=== PATIENT | female | born 1995 | race Caucasian/White ===

== ENCOUNTER 2017-07-18 15:28 | Emergency (ER) | payer MEDICAID, SELFPAY ==
[2017-07-18 15:29] VITALS: BP 156/92; PULSE 78; RESP 16; TEMP 37.7; O2SAT 96; BMI 46.7
[2017-07-18 15:51] VITALS: BP 120/73; PULSE 83; RESP 16; O2SAT 96
--- NOTE | 2017-07-18 15:57 | EKG12_ITS ---
Test Reason : CP Blood Pressure : / mmHG Vent. Rate : 072 BPM Atrial Rate : 072 BPM P-R Int : 154 ms QRS Dur : 140 ms QT Int : 420 ms P-R-T Axes : 020 003 135 degrees QTc Int : 459 ms Normal sinus rhythm Left bundle branch block Abnormal ECG Confirmed by FERDINAND WELLS ([id number]), assistant production editor MERVIN RODRIGUEZ ([id number]) on 07/22/2017 1:07:07 PM Referred By: ZAID/OSCAR Confirmed By:FERDINAND WELLS
--- NOTE | 2017-07-18 15:57 | RAD_ITS ---
STUDY: X-RAY CHEST REASON FOR EXAM: Female, 22 years old. Chest pain. Shortness TECHNIQUE: Frontal and lateral views of the chest. COMPARISON: May 15, 2017 FINDINGS: The lungs are clear and expanded. There is no demonstrated pleural abnormality. Sternotomy wires and a single clip projected over the mid mediastinum are stable. Normal mediastinum and gerald. Normal visualized pulmonary arteries. Normal visualized aortic arch and descending thoracic aorta. Normal visualized thoracic spine. Normal visualized ribs, clavicles, and shoulders. There is no demonstrated abnormality of the visualized soft tissue structures of the upper abdomen. RAD/Chest PA and Lateral IMPRESSION: Stable appearance of the chest with no new or acute pathology. Electronically Signed: Girish Christopher MD at 16:30 EST , Service support ,
[2017-07-18 17:29] VITALS: RESP 16
--- NOTE | 2017-07-18 18:10 | CT_ITS ---
STUDY: CTA CHEST REASON FOR EXAM: Female, 22 years old. Cough and chest pain RADIATION DOSAGE (If Supplied By Facility): CTDIvol = ( 30.02 ) mGy, DLP = ( 689.55 ) mGycm TECHNIQUE: The examination was performed with the intravenous administration of 100ML ml of Isovue 370 contrast material. Post-processing of the angiographic images was performed, with multiplanar reformation and 3D reconstruction. Individualized dose optimization techniques were used for this CT. COMPARISON: July 18, 2017 FINDINGS: Sternotomy wires are noted. Normal enhancement of the main pulmonary artery and right and left pulmonary arteries. Normal enhancement of the bilateral peripheral pulmonary arteries. There is no demonstrated pulmonary embolism. Normal thoracic aorta and visualized great vessels. There is no demonstrated aortic dissection. Normal heart and pericardium. Normal mediastinum. 1.8 cm right hilar node. Normal visualized trachea and bronchi. Small patchy groundglass opacities noted at the right lung base. Right infrahilar tree-in-bud type infiltrates. Normal pulmonary parenchyma. Normal pleura. Normal chest wall structures. Incompletely healed sternotomy. Normal visualized upper abdomen. CT/CTA Chest W/WO Contrast IMPRESSION: Right lower lobe infiltrate probably infectious in etiology. Incompletely healed sternotomy. Electronically Signed: Tulio Diamond MD at 21:23 EST , Service support ,
[2017-07-18] MEDS: Ketorolac 30 MG/ML Syringe IV (18:45)
[2017-07-18 18:59] LABS: Absolute Lymphocyte Count 1.53 X10^3/ul (0.83-4.51); Absolute Neutrophil Count 1.6 X10^3/uL (2.0-7.7); Basophil# 0.02 X10^3/uL; Basophil% 0.5 % (0-1); Eosinophil# 0.08 X10^3/uL; Eosinophils% 2.1 % (0-5); Hematocrit 38.7 % (37-47); Hemoglobin 11.8 g/dl (12.0-15.0); Lymphocyte # 1.53 X10^3/ul (4.0); Lymphocyte % 39.7 % (19-41); Mean Corp Hgb Conc 30.5 g/gl (32-36); Mean Corpuscular Hgb 23.7 pg (27.0-32.0); Mean Corpuscular Volume 77.7 fL (81-99); Mean Platelet Vol. 9.4 fl (6.2-12.0); Monocyte% 15.6 % (0-10); Neutrophil # 1.61 X10^3/uL (2.7-7.7); Neutrophil % 41.8 % (47-70); Platelet Count 225 K/mm3 (150-450); RBC Distribution Width CV 15.6 % (11.6-14.6); Red Blood Count 4.98 M/mm3 (4.2-5.4); White Blood Count 3.9 K/mm3 (4.4-11.0)
[2017-07-18 19:01] LABS: POSITIVE COUNT NO; POSITIVE DIFFERENTIAL NO; POSITIVE MORPHOLOGY NO
[2017-07-18 19:25] LABS: Anion Gap 6 (5-15); BUN 6 mg/dL (7-18); BUN/Creat Ratio 10.6 RATIO (10-20); Calcium,Total 8.6 mg/dL (8.5-10.1); Chloride 108 mmol/L (98-107); Creatinine, Serum 0.57 mg/dL (0.55-1.02); EST Glomerular Filtration Rate 144 mL/min (>60); Est Glom Filt Rate - Afr Amer 175 mL/min (>60); Glucose 75 mg/dL (74-106); Potassium 4.5 mmol/L (3.5-5.1); Sodium Level 139 mmol/L (136-145)
[2017-07-18 19:26] VITALS: BP 130/62; PULSE 67; RESP 19; O2SAT 97
--- NOTE | 2017-07-18 19:41 | NURSING ---
positive flu b reported to dr. ayon
[2017-07-18] MEDS: Oseltamivir Phosphate 75 MG Capsule PO (20:05)
--- NOTE | 2017-07-18 20:30 | ED.DCSUM_ITS ---
- ER Visit Summary Date of Service: 07/18/17 Chief Complaint: Chest pain History of Present Illness: The patient is a 22 F with chest pain that started gradually yesterday, worse today. She has 3 distinct areas of discomfort, all of which are unique. She has had open heart surgery, has no idea what they did at [facility], just to get a piece of tissue and a piece of muscle. She states that her incision has been sore since then but before she started getting sick a few days ago, she has been recovering very well. She also has some nonpleuritic pressure on the right side and some stabbing pleuritic discomfort throughout the left chest. She has been having a cough productive of occasional brown sputum. She denies it being dark yellow, or bloody. It is brown. She had a fever 3 days ago but none since then. She denies having any dyspnea or palpitations. No leg pain or swelling. Physical Examination: Well-appearing in no distress. Temperature is 99.8 otherwise her vital signs are normal her pulse ox is 96% on room air. Initial blood pressure 156/92, on recheck it is 120/73 without any treatment. Lungs are clear to auscultation throughout, her left chest is all very tender, her incision is tender, but does not show any signs of infection or dehiscence and appears to be healing well. Right chest is nontender. Equal breath sounds bilaterally, trachea midline. Abdomen benign. No calf pain or tenderness, no pedal edema. Equal bilateral radial pulses. Test Results: Chest x-ray unremarkable. Labs unremarkable except for influenza which is positive for influenza B. Troponin negative. CT angiography negative for PE, but shows a right lower lobe infiltrate that appears to be of infectious etiology, which was not seen on chest x-ray according to radiology. Emergency Department Course and Treatment: She was given IV fluids, Toradol, and started on Tamiflu and Levaquin. Suspect a lot of her chest discomfort is chest wall pain. There is a delay in ordering tests and getting results because I was awaiting details from [facility] to see what she had done. 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 It does not appear that any of this has anything to do with her symptoms at this time. Her vital signs are excellent, she is satting well on room air. I think she can be discharged home. She was advised to follow-up as scheduled, with her cardiac follow-up appointments and PCP after the weekend. Treatment Plan: Tamiflu, Levaquin, supportive care, close outpt f/u Disposition: Discharge home Impression: Influenza Healthcare associated pneumonia Chest pain, unspecified Recent open heart surgery This note was generated with [employer] dictation software. It may contain incorrect words, spelling, and punctuation that were not noted in review of the chart prior to signing ED Disposition - Plan for ED Patient: Disposition: Home or Assisted Living Chief Complaint: Chest Other Instructions: ED Flu, ED Pneumonia Adult Prescriptions: Levofloxacin [Levaquin] 750 mg PO DAILY #5 tab Oseltamivir Phosphate [Tamiflu] 75 mg PO BID #10 cap Referrals: Ken Barnes MD [Primary Care Provider] - 3-5 Days
[2017-07-18] MEDS: levoFLOXacin 750 MG Tablet PO (21:35)
[2017-07-18 21:36] VITALS: BP 148/55; PULSE 70; RESP 16; O2SAT 99
--- NOTE | 2017-07-18 21:38 | ED.RN ---
REVIEWED D/C INSTRUCTIONS, FOLLOW UP CARE, PRESCRIPTIONS, AND S/S THAT WOULD WARRANT A RETURN TO THE ED WITH PT. PT VERBALIZED AN UNDERSTANDING AND DENIES FURTHER QUESTIONS FOR THIS RN. PT SKIN P/W/D, RESP EVEN AND UNLABORED, PT A&O X 3, NO DISTRESS NOTED. PT AMBULATED OUT OF ED, GAIT STEADY.
== END 2017-07-18 21:40 | disposition home or self-care (01) ==
PROVIDERS: Emergency Provider Emergency Medicine; Family Provider Family Medicine; PCP Family Medicine
DX: J10.00 Influenza due to other identified influenza virus with unspecified type of pneumonia (principal); Y95 Nosocomial condition; R07.89 Other chest pain; Z98.890 Other specified postprocedural states; E66.9 Obesity, unspecified; I44.7 Left bundle-branch block, unspecified; J45.909 Unspecified asthma, uncomplicated; I10 Essential (primary) hypertension; Z86.79 Personal history of other diseases of the circulatory system; Z79.899 Other long term (current) drug therapy
CPT/HCPCS: 71046; 71275; 80048; 84484; 85025; 87804; 93005; 96361; 96374; 99285; J7030; J7040; Q9967; A4216

== ENCOUNTER 2017-10-24 22:27 | Emergency (ER) | payer MEDICAID, SELFPAY ==
[2017-10-24 22:28] VITALS: BP 146/60; PULSE 87; RESP 27; TEMP 36.9; O2SAT 97; BMI 46.3
--- NOTE | 2017-10-24 22:34 | ED.RN ---
CALLED FOR EKG PER RN REQUEST, PULLED OLD EKG'S FOR
--- NOTE | 2017-10-24 22:51 | EKG12_ITS ---
Test Reason : CP Blood Pressure : / mmHG Vent. Rate : 067 BPM Atrial Rate : 067 BPM P-R Int : 152 ms QRS Dur : 144 ms QT Int : 432 ms P-R-T Axes : 029 018 131 degrees QTc Int : 456 ms Normal sinus rhythm Left bundle branch block Abnormal ECG Confirmed by FERDINAND WELLS ([id number]), legal editor MERVIN RODRIGUEZ ([id number]) on 11/03/2017 6:11:19 PM Referred By: YORDY Confirmed By:FERDINAND WELLS
--- NOTE | 2017-10-24 22:53 | ED.VISSUMM ---
- ER Visit Summary Date of Service: 10/24/17 Chief Complaint: Chest pain History of Present Illness: The patient is a 22 F presenting with left-sided chest pain which started around 6 AM this morning. She states it has waxed and waned today and has been consistent throughout the day. She has shortness of breath associated with this. She states it is worse with deep inspiration. She has had similar symptoms in the past. She is a smoker. She does not have any other coronary artery disease risk factors. She denies fever cough or other complaints. 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 Physical Examination: Vitals are stable. Patient is afebrile. Alert no acute distress. HEENT exam is unremarkable. Neck is supple. Lungs are clear and equal bilaterally. Left chest tender to palpation with no crepitus. Heart is regular rate and rhythm. Abdomen is soft nontender nondistended. Extremities are unremarkable. Skin is warm and dry. No focal neurologic deficit. Remainder of exam is unremarkable. Emergency Department Course and Treatment: EKG is sinus rate of 67 with left bundle branch block unchanged from previous. Patient is given Toradol IV. Chest x-ray shows mild enlargement of cardiac silhouette. CBC normal shows hemoglobin 11.6, chemistries unremarkable. Troponin is negative. D-dimer is 0.32. HCG negative. Patient had over 12 hours of constant pain with a negative troponin. Her pain is reproducible to palpation. She is advised to take NSAIDs. Advised to follow-up with her primary care physician. Advised return to ED if worsening complaints. Disposition: Discharge home Impression: Chest wall pain This note was generated with [employer] dictation software. It may contain incorrect words, spelling, and punctuation that were not noted in review of the chart prior to signing ED Disposition - Plan for ED Patient: Chief Complaint: Chest Pain Instructions: ED Strain Chest Wall Referrals: Ken Barnes MD [Primary Care Provider] -
--- NOTE | 2017-10-24 22:55 | RAD_ITS ---
STUDY: X-RAY CHEST REASON FOR EXAM: Female, 22 years old. Chest pain TECHNIQUE: A single frontal view of the chest was obtained. COMPARISON: July 18, 2017 FINDINGS: The lungs are underaerated. There are no focal airspace opacities. There is no demonstrated pleural abnormality. There is mild enlargement of the cardiac silhouette. Sternotomy wires are present. The mediastinum and hilar regions are unremarkable. Normal visualized pulmonary arteries. Normal visualized aortic arch and descending thoracic aorta. The thoracic spine is unremarkable. The visualized ribs, clavicles, and shoulders are unremarkable. There is no demonstrated abnormality of the visualized upper abdomen. RAD/Chest 1 View (Portable) IMPRESSION: There is mild enlargement of the cardiac silhouette without evidence of edema or effusion. Electronically Signed: Ellen Olivera MD at 23:47 EDT Tel Direct: [phone], Service support ,
--- NOTE | 2017-10-24 22:57 | ED.DCSUM_ITS ---
- ER Visit Summary Date of Service: 10/24/17 Chief Complaint: Chest pain History of Present Illness: The patient is a 22 F presenting with left-sided chest pain which started around 6 AM this morning. She states it has waxed and waned today and has been consistent throughout the day. She has shortness of breath associated with this. She states it is worse with deep inspiration. She has had similar symptoms in the past. She is a smoker. She does not have any other coronary artery disease risk factors. She denies fever cough or other complaints. 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 Physical Examination: Vitals are stable. Patient is afebrile. Alert no acute distress. HEENT exam is unremarkable. Neck is supple. Lungs are clear and equal bilaterally. Left chest tender to palpation with no crepitus. Heart is regular rate and rhythm. Abdomen is soft nontender nondistended. Extremities are unremarkable. Skin is warm and dry. No focal neurologic deficit. Remainder of exam is unremarkable. Emergency Department Course and Treatment: EKG is sinus rate of 67 with left bundle branch block unchanged from previous. Patient is given Toradol IV. Chest x-ray shows mild enlargement of cardiac silhouette. CBC normal shows hemoglobin 11.6, chemistries unremarkable. Troponin is negative. D-dimer is 0.32. HCG negative. Patient had over 12 hours of constant pain with a negative troponin. Her pain is reproducible to palpation. She is advised to take NSAIDs. Advised to follow-up with her primary care physician. Advised return to ED if worsening complaints. Disposition: Discharge home Impression: Chest wall pain This note was generated with [employer] dictation software. It may contain incorrect words, spelling, and punctuation that were not noted in review of the chart prior to signing ED Disposition - Plan for ED Patient: Chief Complaint: Chest Pain Instructions: ED Strain Chest Wall Referrals: Ken Barnes MD [Primary Care Provider] -
[2017-10-24 23:23] LABS: Absolute Lymphocyte Count 2.83 X10^3/ul (0.83-4.51); Absolute Neutrophil Count 6.1 X10^3/uL (2.0-7.7); Basophil# 0.06 X10^3/uL; Basophil% 0.6 % (0-1); Eosinophil# 0.63 X10^3/uL; Eosinophils% 6.1 % (0-5); Hematocrit 37.3 % (37-47); Hemoglobin 11.6 g/dl (12.0-15.0); Lymphocyte # 2.83 X10^3/ul (4.0); Lymphocyte % 27.2 % (19-41); Mean Corp Hgb Conc 31.1 g/gl (32-36); Mean Corpuscular Hgb 23.5 pg (27.0-32.0); Mean Corpuscular Volume 75.7 fL (81-99); Mean Platelet Vol. 9.3 fl (6.2-12.0); Monocyte# 0.75 X10^3/uL; Monocyte% 7.2 % (0-10); Neutrophil # 6.12 X10^3/uL (2.7-7.7); Neutrophil % 58.7 % (47-70); Platelet Count 294 K/mm3 (150-450); RBC Distribution Width CV 17.5 % (11.6-14.6); RBC Distribution Width SD 48.6 fl (35.1-43.9); Red Blood Count 4.93 M/mm3 (4.2-5.4); White Blood Count 10.4 K/mm3 (4.4-11.0)
[2017-10-24] MEDS: Ketorolac 30 MG/ML Syringe IV (23:25)
[2017-10-24 23:27] LABS: POSITIVE COUNT NO; POSITIVE DIFFERENTIAL NO; POSITIVE MORPHOLOGY NO
[2017-10-24 23:44] LABS: Anion Gap 8 (5-15); BUN 11 mg/dL (7-18); BUN/Creat Ratio 16.7 RATIO (10-20); Calcium,Total 8.3 mg/dL (8.5-10.1); Chloride 109 mmol/L (98-107); Creatinine, Serum 0.66 mg/dL (0.55-1.02); EST Glomerular Filtration Rate 122 mL/min (>60); Est Glom Filt Rate - Afr Amer 147 mL/min (>60); Estimated Creatinine Clearance 137.16 ml/min; Glucose 104 mg/dL (74-106); Potassium 3.8 mmol/L (3.5-5.1); Sodium Level 139 mmol/L (136-145)
[2017-10-24 23:53] LABS: D-Dimer Quantitative (DVT/PE) 0.32 FEU/ug/m (0.27-0.49)
--- NOTE | 2017-10-25 00:17 | ED.DEP ---
ED Disposition - Plan for ED Patient: Chief Complaint: Chest Pain Instructions: ED Strain Chest Wall Referrals: Ken Barnes MD [Primary Care Provider] -
[2017-10-25 00:18] LABS: Pregnancy, Serum, hCG Quali. NEGATIVE Negative (0-9 Nonpreg)
[2017-10-25 00:35] VITALS: BP 118/56; PULSE 87; RESP 20; O2SAT 96
== END 2017-10-25 00:36 | disposition home or self-care (01) ==
LOC: ED 22:55
PROVIDERS: Emergency Provider Emergency Medicine; Family Provider Family Medicine; PCP Family Medicine
DX: R07.89 Other chest pain (principal); R06.00 Dyspnea, unspecified; I44.7 Left bundle-branch block, unspecified; Z79.899 Other long term (current) drug therapy; F17.200 Nicotine dependence, unspecified, uncomplicated
CPT/HCPCS: 71045; 80048; 84484; 84703; 85025; 85379; 93005; 96374; 99285; A4216

== ENCOUNTER → 2017-11-19 20:00 | Outpatient (CLI) | payer MEDICAID, SELFPAY | PROVIDERS: Family Provider Family Medicine; PCP Family Medicine | DX: G47.33 Obstructive sleep apnea (adult) (pediatric) (principal); R53.83 Other fatigue | CPT/HCPCS: 95810 ==

== ENCOUNTER 2018-04-30 10:43 | Emergency (ER) | payer MEDICAID, SELFPAY ==
[2018-04-30 10:44] VITALS: BP 152/68; PULSE 78; RESP 18; TEMP 36.6; O2SAT 99; BMI 48.0
--- NOTE | 2018-04-30 11:00 | EKG12_ITS ---
Test Reason : CP/SOB Blood Pressure : / mmHG Vent. Rate : 064 BPM Atrial Rate : 064 BPM P-R Int : 144 ms QRS Dur : 142 ms QT Int : 448 ms P-R-T Axes : 031 015 123 degrees QTc Int : 462 ms Normal sinus rhythm Left bundle branch block Abnormal ECG Confirmed by NATHALIE HANEY, KALI ([id number]), desk editor MERVIN RODRIGUEZ ([id number]) on 05/04/2018 2:28:49 PM Referred By: JEFFERY/SISI Confirmed By:KALI ZELAYA MD
--- NOTE | 2018-04-30 11:03 | ED.DCSUM_ITS ---
- ER Visit Summary Date of Service: 04/30/18 Chief Complaint: Chest pain History of Present Illness: The patient is a 22 F presents to the emergency department chest pain. Patient symptoms began last night. She describes a burning pain in mid epigastric area that radiates around. She denies any fevers or chills. She denies any cough. It was made worse with eating. She states that she has never had symptoms like this involving her back, but she will get symptoms in her upper stomach into her chest frequently. She denies any history of coronary vascular disease. She has no history of pulmonary embolus. Physical Examination: Vital signs reviewed General: Well-nourished, well-developed Head: Normocephalic, atraumatic Eyes: Pupils equal and reactive, extraocular muscles intact Neck, supple, no lymphadenopathy Heart: Regular rate and rhythm Respiratory: No distress, clear bilaterally Abdomen: Soft, tender in the midepigastric area without rebound or guarding, nondistended, no peritoneal signs Back: Nontender Extremities: Nontender, no edema, no cords Skin: Normal color no rash Neuro: Alert and oriented, no focal or lateralizing deficits Test Results: [] Emergency Department Course and Treatment: The patient declined any prior medical issues, but review of the records and on her examination, she has had prior sternotomy. Her pain is entirely reproducible in the midepigastric area. She is now febrile. She is not tachycardic. EKG was obtained. It showed a left bundle branch block which was unchanged. Her chest x-ray was also unremarkable. Patient was given a GI cocktail with some improvement. Her pain is entirely reproducible. She is no history of coronary vascular disease. She has had multiple workups in the past for chest pain. I do feel that she is safe for outpatient therapy. I am going to treat her with anti-inflammatories. She will be discharged home. Treatment Plan: [] Disposition: Discharge Impression: Chest pain This note was generated with [employer] dictation software. It may contain incorrect words, spelling, and punctuation that were not noted in review of the chart prior to signing ED Disposition - Plan for ED Patient: Chief Complaint: Chest Pain Instructions: ED Chest Pain NonCardiac Prescriptions: Naproxen [Naprosyn] 500 mg PO BID PRN #20 tab Referrals: Ken Barnes MD [Primary Care Provider] -
[2018-04-30] MEDS: Mag Hydrox/Al Hydrox/Simeth 30 ML UDC PO (11:23)
--- NOTE | 2018-04-30 11:50 | RAD_ITS ---
STUDY: X-RAY CHEST REASON FOR EXAM: Female, 22 years old. Chest pain. TECHNIQUE: PA and lateral views of the chest. COMPARISON: Comparison is made with prior study dated October 24, 2017. FINDINGS: The lungs are clear and expanded. There is no demonstrated pleural abnormality. Sternal cerclage wires are present from a prior sternotomy. Normal mediastinum and gerald. Normal visualized pulmonary arteries. Normal visualized aortic arch and descending thoracic aorta. Normal visualized thoracic spine. Normal visualized ribs, clavicles, and shoulders. There is no demonstrated abnormality of the visualized soft tissue structures of the upper abdomen. RAD/Chest PA and Lateral IMPRESSION: Status post midline sternotomy. No acute abnormality is seen. Electronically Signed: Seng Luna MD at 12:11 EST Tel [phone], Service support ,
== END 2018-04-30 13:15 | disposition home or self-care (01) ==
LOC: ED 11:44
PROVIDERS: Emergency Provider Emergency Medicine; Family Provider Family Medicine; PCP Family Medicine
DX: R07.9 Chest pain, unspecified (principal); R11.0 Nausea; I44.7 Left bundle-branch block, unspecified; Z72.0 Tobacco use
CPT/HCPCS: 71046; 93005; 99282

== ENCOUNTER 2018-05-07 13:44 | Emergency (ER) | payer MEDICAID, SELFPAY ==
[2018-05-07 13:45] VITALS: PULSE 95; RESP 19; TEMP 37.1; O2SAT 98; BMI 48.5
--- NOTE | 2018-05-07 14:01 | EKG12_ITS ---
Test Reason : Blood Pressure : / mmHG Vent. Rate : 080 BPM Atrial Rate : 080 BPM P-R Int : 140 ms QRS Dur : 138 ms QT Int : 420 ms P-R-T Axes : 024 016 112 degrees QTc Int : 484 ms Normal sinus rhythm Left bundle branch block Abnormal ECG Confirmed by NATHALIE HANEY, KALI ([id number]), senior technical editor MERVIN RODRIGUEZ ([id number]) on 05/08/2018 11:56:31 AM Referred By: OSCAR Confirmed By:KALI ZELAYA MD
[2018-05-07 14:21] VITALS: O2SAT 98
[2018-05-07] MEDS: Aspirin 81 MG TAB.CHEW 324 MG PO (14:43)
[2018-05-07 14:44] VITALS: BP 126/54; PULSE 77; RESP 27; O2SAT 97
--- NOTE | 2018-05-07 14:52 | RAD_ITS ---
STUDY: X-RAY CHEST REASON FOR EXAM: Female, 22 years old. 2 day history of chest pain. TECHNIQUE: PA and lateral views of the chest. COMPARISON: Comparison is made with prior study dated April 30, 2018. FINDINGS: The lungs are clear and expanded. There is no demonstrated pleural abnormality. Sternal cerclage wires are present from a prior sternotomy. Normal mediastinum and gerald. Normal visualized pulmonary arteries. Normal visualized aortic arch and descending thoracic aorta. Normal visualized thoracic spine. Normal visualized ribs, clavicles, and shoulders. There is no demonstrated abnormality of the visualized soft tissue structures of the upper abdomen. RAD/Chest PA and Lateral IMPRESSION: The patient is status post midline sternotomy. No acute abnormality is seen. Electronically Signed: Seng Luna MD at 15:07 EST Tel [phone], Service support ,
[2018-05-07 14:55] LABS: Absolute Lymphocyte Count 3.06 X10^3/ul (0.83-4.51); Absolute Neutrophil Count 7.2 X10^3/uL (2.0-7.7); Basophil# 0.07 X10^3/uL; Basophil% 0.6 % (0-1); Eosinophil# 0.64 X10^3/uL; Eosinophils% 5.4 % (0-5); Hematocrit 40.4 % (37-47); Hemoglobin 13.1 g/dl (12.0-15.0); Lymphocyte # 3.06 X10^3/ul (4.0); Lymphocyte % 25.7 % (19-41); Mean Corp Hgb Conc 32.4 g/gl (32-36); Mean Corpuscular Hgb 25.7 pg (27.0-32.0); Mean Corpuscular Volume 79.2 fL (81-99); Mean Platelet Vol. 9.5 fl (6.2-12.0); Monocyte% 7.6 % (0-10); Neutrophil # 7.23 X10^3/uL (2.7-7.7); Neutrophil % 60.5 % (47-70); Platelet Count 280 K/mm3 (150-450); RBC Distribution Width SD 43.4 fl (35.1-43.9); White Blood Count 11.9 K/mm3 (4.4-11.0)
[2018-05-07 14:56] LABS: Differential Indicated SCAN CRITERIA MET; POSITIVE COUNT NO; POSITIVE DIFFERENTIAL NO; POSITIVE MORPHOLOGY YES
[2018-05-07 15:00] VITALS: BP 119/49; PULSE 81; RESP 16; O2SAT 98
[2018-05-07 15:01] LABS: Anion Gap 5 (5-15); BUN 13 mg/dL (7-18); BUN/Creat Ratio 29.2 RATIO (10-20); Calcium,Total 8.9 mg/dL (8.5-10.1); Chloride 105 mmol/L (98-107); Creatinine, Serum 0.44 mg/dL (0.55-1.02); EST Glomerular Filtration Rate 190 mL/min (>60); Est Glom Filt Rate - Afr Amer 229 mL/min (>60); Estimated Creatinine Clearance 198.33 ml/min; Glucose 81 mg/dL (74-106); Potassium 4.1 mmol/L (3.5-5.1); Sodium Level 137 mmol/L (136-145)
--- NOTE | 2018-05-07 15:17 | ED.VISSUMM ---
- ER Visit Summary Date of Service: 05/07/18 Chief Complaint: Chest pain History of Present Illness: The patient is a 22 F who presents with chest pain that has been constant for the past 2 days. Patient describes the pain is stabbing and tightness. Patient states the pain is across her entire chest. Patient states nothing makes it better or worse. Patient admits to some nausea but denies any vomiting. Patient admits to some shortness of breath. Patient also admits to a cough and some lightheadedness. Patient also admits to some reflux symptoms. Physical Examination: Vital signs are stable. Patient is afebrile. Patient is in no acute distress. Oral mucosa is pink and moist. Neck is supple. Trachea is midline. There is no JVD noted. Heart was regular rate and rhythm. Lungs showed mild expiratory wheezes. Abdomen is soft. Bowel sounds are normal. There is no tenderness. Cranial nerves II through XII are intact. There are no focal motor or sensory deficits noted. The remaining physical exam is within normal limits. Test Results: EKG showed normal sinus rhythm with a rate of 80. There is a left bundle branch block pattern noted. This was unchanged compared to previous EKG dated 04/30/2018. Chest x-ray does not show any acute cardiopulmonary process. CBC basic metabolic profile and troponin were obtained and were all within normal limits. Emergency Department Course and Treatment: Patient was given aspirin here. Patient was given albuterol aerosol. Patient was instructed her chest pain is unlikely to be cardiac in etiology. Patient has a LONI score of 0. Patient has a HEART score of 1. Patient was advised that this is low risk for acute cardiac event. Patient was instructed to follow-up with her primary care physician in 5-7 days. Patient understood and was agreeable with the plan. All questions were answered. Disposition: Discharge home Impression: Chest pain of uncertain etiology This note was generated with [employer] dictation software. It may contain incorrect words, spelling, and punctuation that were not noted in review of the chart prior to signing ED Disposition - Plan for ED Patient: Disposition: Home or Assisted Living Chief Complaint: Chest Pain Diagnosis: Chest pain of uncertain etiology Instructions: ED Chest Pain Atypical Unkn Cause Referrals: Ken Barnes MD [Primary Care Provider] -
[2018-05-07 15:39] VITALS: PULSE 85; RESP 16
[2018-05-07] MEDS: Albuterol 2.5 MG/3 ML VIAL.NEB. INHALATION (15:39)
[2018-05-07 15:48] VITALS: BP 124/90; PULSE 75; RESP 16; O2SAT 98
[2018-05-11 13:53] LABS: Pathologist Review Reviewed
--- OUTSIDE RECORDS SUMMARY | 2018-06-23 10:51 | XMS RPT_ITS ---
:1995 Author Organization OHIP Care Team Providers Name Role Phone ARISTEO MOORE Attending Unavailable Bursley, Ken Primary Care Unavailable Bursley, Ken Primary Care Unavailable Irma Sainz Attending Unavailable MARAIMA RECINOS Attending Unavailable Bursley, Ken Primary Care Unavailable MARIAMA RECINOS Consulting Unavailable Bursley, Ken Primary Care Unavailable Misael Valle Attending Unavailable MARIAMA RECINOS Attending Unavailable Bursley, Ken Primary Care Unavailable MARIAMA RECINOS Consulting Unavailable Paramjit Rodriguez Attending Unavailable Bursley, Ken Referring Unavailable Bursley, Ken Primary Care Unavailable Manuel Davidson Attending Unavailable PETTERSSON, GOSTA Referring Unavailable PETTERSSON, GOSTA Referring Unavailable MITCHELL WONG (FLOUR TESTER) Attending Unavailable PETTERSSON, GOSTA Referring Unavailable JOS BARNES) Attending Unavailable RUTTIIBIS (JOHN) Attending Unavailable JOS BARNES) Referring Unavailable RUTIBIS BERGER (JOHN) Attending Unavailable PETTERSSON, GOSTA Referring Unavailable PETTERSSON, GOSTA Referring Unavailable CREMER, UMBERTO Referring Unavailable CREMER, UMBERTO Attending Unavailable CREMER, UMBERTO Referring Unavailable PETTERSSON, GOSTA Referring Unavailable PODLOGAR, MELISA (JOHN) Attending Unavailable KRISHNA LINDA Attending Unavailable PODLOGAR, MELISA (FLOUR TESTER) Attending Unavailable HAYESI ESTEBAN (JOHN) Attending Unavailable YESI CODY (FLOUR TESTER) Referring Unavailable MODORA ZAMBRANO Attending Unavailable JOS BARNES) Referring Unavailable YESI CODY (JOHN) Attending Unavailable JOS BARNES () Attending Unavailable JOS BARNES () Referring Unavailable MADONNA MANN ([facility]) Attending Unavailable GAYLE MCCARTNEY (TECHNICAL SUPPORT ASSISTANT) Attending Unavailable JOS BARNES) Referring Unavailable RUBY VELAZQUEZ (PEMA) Attending Unavailable PODLOGAR, MELISA ([facility]) Attending Unavailable ALICIA MARTINEZ Attending Unavailable RUBY VELAZQUEZ (PEMA) Attending Unavailable PODLOGAR, MELISA (FLOUR TESTER) Attending Unavailable KRISHNA LINDA Attending Unavailable KRISHNA LINDA Referring Unavailable PODLOGAR, MELISA (FLOUR TESTER) Attending Unavailable PETTERSSON, GOSTA Admitting Unavailable PETTERSSON, GOSTA Attending Unavailable PODLOGAR, MELISA (FLOUR TESTER) Attending Unavailable PODLOGAR, MELISA (FLOUR TESTER) Referring Unavailable GAYLE MCCARTNEY (TECHNICAL SUPPORT ASSISTANT) Referring Unavailable EMMANUEL HAIDER Attending Unavailable EMMANUEL HAIDER E Referring Unavailable EMMANUEL HAIDER Attending Unavailable EVE REYES (TELEPHONE PLANT POWER OPERATOR) Referring Unavailable ISABELL ZURITA MD Attending Unavailable CAMERON RICKETTS, JOS Primary Care Unavailable EMMANUEL HAIDER Attending Unavailable IMCA Referring Unavailable JOS BARNES Primary Care Unavailable EMMANUEL HAIDER Attending Unavailable JOS BARNES Referring Unavailable MIRTHA BARNESOPHKM Primary Care Unavailable PROBLEMS PROBLEMS DATE TYPE CONDITION / CODE ATTENDING STATUS SOURCE 05/25/2018 Active Nausea / NA Active [facility] R11.0(ICD-10) [facility] [place] Rep[facility] 05/09/2018 Active Epigastric pain / NA Active [facility] R10.13(ICD-10) [facility] [place] [facility] 05/09/2018 Active Melena / NA Active [facility] K92.1(ICD-10) [facility] [place] [facility] 01/15/2018 Active Generalized NA Active [place] abdominal pain / [facility] R10.84(ICD-10) [place] [facility] 01/15/2018 Active Hemorrhage of anus NA Active [facility] and rectum / [facility] K62.5(ICD-10) [place] [facility] 11/05/2017 Active Other fatigue / NA Active [facility] R53.83(ICD-10) [facility] [place] [facility] 09/19/2017 Active 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 E Clinic Other / Q24.4(ICD-10) [place] Rep[facility] 09/19/2017 Admitting Unknown / EMMANUEL HAIDER Active [facility] UNK(Unknown) [facility] 08/26/2017 Active Encounter for NA Active [place] examination for [facility] normal comparison [place] and control in Repository clinical research program / Z00.6(ICD-10) 06/27/2017 Active Unknown / CAMERON, Active [facility] UNK(Unknown) [facility] () [place] [facility] 06/21/2017 Active Essential (primary) SANDALAKIS, Active [facility] hypertension / ANDEGONI (FLOUR TESTER) Clinic [facility] I10(ICD-10) [place] [facility] 06/21/2017 Active Atelectasis / SANDALAKIS, Active [facility] J98.11(ICD-10) ANDEGONI (FLOUR TESTER) [facility] [place] [facility] 06/21/2017 Active Nonrheumatic aortic SANDALAKIS, Active [facility] (valve) stenosis / ANDEGONI (FLOUR TESTER) [facility] I35.0(ICD-10) [place] [facility] 11/28/2014 Active Endocarditis, valve NA Active [facility] unspecified / [facility] I38(ICD-10) [place] [facility] 06/21/2017 Active Other acute PETTERSSON, Active [facility] postprocedural pain GO[facility] Main / G89.18(ICD-10) [place] [facility] 06/21/2017 Active Adjustment disorder LYNDSAY Active [facility] with mixed anxiety [facility] and depressed mood [place] / F43.23(ICD-10) Repository 06/18/2017 Active Hypovolemia / PETTERSSON, Active [place] E86.1(ICD-10) [facility] [place] Repository 06/18/2017 Active Dependence on PETTERSSON, Active [place] respirator [facility] (ventilator) status [place] / Z99.11(ICD-10) Repository 06/17/2017 Active Mild intermittent PETTERSSON, Active [place] asthma, [facility] Main uncomplicated / [place] J45.20(ICD-10) Repository PROCEDURES PROCEDURES No Procedure Records FoundRESULTS RESULTS PROGRESS Observed: 06/17/2018 Status: COMPLETED Source: [place] 10:47 AM [facility] REPOSITORY HNO ID: [id number] Author: Emmanuel Haider Service: (none) Author Type: Physician Type: Progress Notes Filed: 06/17/2018 12:06 PM Note Text: PERTINENT CARDIAC HISTORY 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, resection of subaortic membrane 06/12 Chest pain Tobaccoism LBBB - postop 06/12 ADHERENCE TO GUIDELINES RICHARD-I or ARB for HF with prior LVEF<40 (NQF 0081) - N/A ASA or Plavix for ASHD (NQF 0067) - N/A Beta gurmeet for ASHD with prior CO or prior LVEF<40 (NQF 0070) - N/A Beta gurmeet for HF with prior LVEF<40 (NQF 0083) - N/A RICHARD-I or ARB for ASHD with DM or prior LVEF<40 (NQF 0066) - N/A Statin therapy for ASHD or FHL or DM - N/A BMI documented and plan if >25 (NQF 0421) - lifestyle recommendation form Tobacco use screening and referral (NQF 0028) - lifestyle recommendation form Recommendation for whole food, plant based diet - lifestyle recommendation form CLINICAL IMPRESSION/PLAN: Keily Rasmussen has had a good surgical result. There is no murmur to suggest recurrence of her subaortic stenosis. She is having anterior chest wall pain which may be related to problems with the sternotomy healing. I have recommended that she have CT scan of the sternum for further evaluation. There is no evidence of infection. She may benefit from a referral to pain management. We discussed follow-up of her cardiac surgeries. She would like to be followed locally. We will make an appointment for her after we see the results of her CT scan. Written and verbal health teaching given to patient, patient verbalizes understanding and agrees with treatment plan. DIAGNOSIS FOR VISIT: Chest pain Left bundle HISTORY OF PRESENT ILLNESS Keily Rasmussen returns for follow-up of her heart surgery. She reports that she has had chronic Pain in the anterior chest wall the last several months. She's been to the emergency department on several occasions. There has been no evidence of acute coronary syndrome. Her pain is typically exacerbated by lifting and by range of motion. There is no radiation other than around the ribs to the back. She has received incomplete relief with Tylenol and ibuprofen. She has tried nitroglycerin on one occasion in the emergency department without relief. She reports that the pain will last for days at a time. It has been off-and-on since her surgery. There is no drainage or warmth in the sternum. She's had no fever or chills. She denies any exertional symptoms. She's had no edema, syncope, TIAs, amaurosis or claudication. ALLERGIES: ALLERGIES Allergen Reactions - Amoxicillin Rash - Doxycycline Rash - Penicillins Hives - Tetanus And Diphthe* Rash Local erythema and swelling in the affected arm. CURRENT OUTPATIENT MEDICATIONS: albuterol HFA (VENTOLIN HFA) 90 mcg/actuation inhaler Inhale 2 Puffs as instructed every 4 hours as needed. benzonatate (TESSALON PERLE) 100 mg capsule Take 1 capsule by mouth three times daily as needed. sertraline (ZOLOFT) 50 mg tablet 1/2 pill daily X 1 week; then increase to a whole pill daily. omeprazole (PRILOSEC) 20 mg capsule Take 1 capsule by mouth once daily. ondansetron orally disintegrating (ZOFRAN ODT) 4 mg disintegrating tablet Take 1 tablet by mouth every 8 hours as needed for Nausea/Vomiting. varenicline (CHANTIX STARTING MONTH BOX) 0.5 mg (11)- 1 mg (42) tablet Take 1 tablet (0.5 mg) by mouth once daily for 3 days, then 1 tablet (0.5 mg) twice daily for 4 days, then one tablet (1 mg) twice daily. vit-iron fumarate-fa ( MULTIVITAMINS) 28 mg iron- 800 mcg tab Take 1 tablet by mouth once daily. nystatin-triamcinolone (MYCOLOG) ointment Apply sparingly to perineum twice daily for irritation/infection. triamcinolone acetonide (KENALOG) 0.1 % cream Apply 1 application to affected area twice daily. Apply to affected area. PHYSICAL EXAMINATION: VITAL SIGNS: BP 130/72 Pulse 92 Ht 5' 7 (1.70m) Wt 309 lb 9.6 oz (140.4kg) BMI 48.48 kg/(m2). Chest: Clear to auscultation.Sternum appears to be intact. There is no click or instability. There is diffuse tenderness in the anterior chest wall, which duplicates her symptoms. There is no drainage or warmth. Incision is well-healed. Trachea is midline. Air entry is equal. Cardiac: Regular rhythm. S1 and S2 are normal. PMI is nondisplaced. There is a soft systolic ejection murmur. Carotids are brisk without bruits. JVP is less than 10 cm. Abdomen: Soft and nontender. There are no pulsatile masses or bruits. No liver enlargement. Bowel sounds are active. Extremities: No edema. Pulses are intact and symmetrical. Labs from the emergency department were reviewed. Renal function is normal. Troponin was undetectable. Recent white count was normal. EKG shows sinus rhythm with left bundle branch block and is unchanged. 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, resection of subaortic membrane 06/12 Chest pain Tobaccoism LBBB - postop 06/12 ADHERENCE TO GUIDELINES RICHARD-I or ARB for HF with prior LVEF<40 (NQF 0081) - N/A ASA or Plavix for ASHD (NQF 0067) - N/A Beta gurmeet for ASHD with prior CO or prior LVEF<40 (NQF 0070) - N/A Beta gurmeet for HF with prior LVEF<40 (NQF 0083) - N/A RICHARD-I or ARB for ASHD with DM or prior LVEF<40 (NQF 0066) - N/A Statin therapy for ASHD or FHL or DM - N/A BMI documented and plan if >25 (NQF 0421) - lifestyle recommendation form Tobacco use screening and referral (NQF 0028) - lifestyle recommendation form Recommendation for whole food, plant based diet - lifestyle recommendation form CLINICAL IMPRESSION/PLAN: Keily Rasmussen has had a good surgical result. There is no murmur to suggest recurrence of her subaortic stenosis. She is having anterior chest wall pain which may be related to problems with the sternotomy healing. I have recommended that she have CT scan of the sternum for further evaluation. There is no evidence of infection. She may benefit from a referral to pain management. We discussed follow-up of her cardiac surgeries. She would like to be followed locally. We will make an appointment for her after we see the results of her CT scan. Written and verbal health teaching given to patient, patient verbalizes understanding and agrees with treatment plan. DIAGNOSIS FOR VISIT: Chest pain Left bundle HISTORY OF PRESENT ILLNESS Keily Rasmussen returns for follow-up of her heart surgery. She reports that she has had chronic Pain in the anterior chest wall the last several months. She's been to the emergency department on several occasions. There has been no evidence of acute coronary syndrome. Her pain is typically exacerbated by lifting and by range of motion. There is no radiation other than around the ribs to the back. She has received incomplete relief with Tylenol and ibuprofen. She has tried nitroglycerin on one occasion in the emergency department without relief. She reports that the pain will last for days at a time. It has been off-and-on since her surgery. There is no drainage or warmth in the sternum. She's had no fever or chills. She denies any exertional symptoms. She's had no edema, syncope, TIAs, amaurosis or claudication. ALLERGIES: ALLERGIES Allergen Reactions - Amoxicillin Rash - Doxycycline Rash - Penicillins Hives - Tetanus And Diphthe* Rash Local erythema and swelling in the affected arm. CURRENT OUTPATIENT MEDICATIONS: albuterol HFA (VENTOLIN HFA) 90 mcg/actuation inhaler Inhale 2 Puffs as instructed every 4 hours as needed. benzonatate (TESSALON PERLE) 100 mg capsule Take 1 capsule by mouth three times daily as needed. sertraline (ZOLOFT) 50 mg tablet 1/2 pill daily X 1 week; then increase to a whole pill daily. omeprazole (PRILOSEC) 20 mg capsule Take 1 capsule by mouth once daily. ondansetron orally disintegrating (ZOFRAN ODT) 4 mg disintegrating tablet Take 1 tablet by mouth every 8 hours as needed for Nausea/Vomiting. varenicline (CHANTIX STARTING MONTH BOX) 0.5 mg (11)- 1 mg (42) tablet Take 1 tablet (0.5 mg) by mouth once daily for 3 days, then 1 tablet (0.5 mg) twice daily for 4 days, then one tablet (1 mg) twice daily. vit-iron fumarate-fa ( MULTIVITAMINS) 28 mg iron- 800 mcg tab Take 1 tablet by mouth once daily. nystatin-triamcinolone (MYCOLOG) ointment Apply sparingly to perineum twice daily for irritation/infection. triamcinolone acetonide (KENALOG) 0.1 % cream Apply 1 application to affected area twice daily. Apply to affected area. PHYSICAL EXAMINATION: VITAL SIGNS: BP 130/72 Pulse 92 Ht 5' 7 (1.70m) Wt 309 lb 9.6 oz (140.4kg) BMI 48.48 kg/(m2). Chest: Clear to auscultation.Sternum appears to be intact. There is no click or instability. There is diffuse tenderness in the anterior chest wall, which duplicates her symptoms. There is no drainage or warmth. Incision is well-healed. Trachea is midline. Air entry is equal. Cardiac: Regular rhythm. S1 and S2 are normal. PMI is nondisplaced. There is a soft systolic ejection murmur. Carotids are brisk without bruits. JVP is less than 10 cm. Abdomen: Soft and nontender. There are no pulsatile masses or bruits. No liver enlargement. Bowel sounds are active. Extremities: No edema. Pulses are intact and symmetrical. Labs from the emergency department were reviewed. Renal function is normal. Troponin was undetectable. Recent white count was normal. EKG shows sinus rhythm with left bundle branch block and is unchanged. Electronically Signed: Emmanuel Haider MD June 17, 2018 10:47 AM CC: MD Emmanuel Fay MD 06/17/2018 10:47 AM Signed LIFESTYLE CHANGE A healthy lifestyle is the most important component of your overall treatment plan. Please give serious thought to the following areas and commit to making roasterman changes. EAT A WHOLE FOOD, PLANT BASED DIET The nutrition your body gets is more important than the medicine you take. What matters most is the overall way you eat. We encourage you to minimize the use of animal products (which include dairy and all meats except fatty fish) and use whole, unprocessed plant foods to provide your protein, vitamins and other nutrients. We have a lot of information to share with you on this topic. This is not a diet. It is a way of life that you will keep with you. EXERCISE REGULARLY It is not important to spend hours in the gym, lifting weights and perspiring heavily. A total of 2-3 hours per week of aerobic (causing you to be moderately short of breath) exercise is sufficient to improve your health. Talk to us before you begin a new exercise program, if you have heart disease or experience shortness of breath or chest pain. REDUCE STRESS Chronic emotional and physical stress leads to disease. Ways of reducing stress include meditation, visualization, prayer, yoga and other forms of relaxation therapy. Consistency is the ramirez. Find a technique that works for you and do it every day. CULTIVATE RELATIONSHIPS Loneliness and isolation have a major negative impact on health. Seek out others who can love, care for and nurture you. Avoid hurtful relationships. MAINTAIN IDEAL BODY WEIGHT The best way to do this is to do all the things above. Our bodies naturally find the right weight if we keep moving and feed ourselves the right food. If your BMI is greater than 25, we strongly recommend a referral to a weight management program. Please speak to us or your family physician about available programs. AVOID NICOTINE IN ALL FORMS This includes all tobacco products, whether chewed, smoked, vaped, or rubbed on the skin. Smoking cessation programs, which can make use of tobacco substitutes, medications to suppress cravings and behavior management, are available. Please contact your family physician about programs in your area. Referring Provider: EMMANUEL HAIDER [[id number]] Allergies As of Date: 06/17/2018 Noted Allergy Reaction AMOXICILLIN 04/15/2018 2 - Rash DOXYCYCLINE 05/13/2018 2 - Rash PENICILLINS 11/28/2014 4 - Hives TETANUS AND DIPHTHERIA TOXOIDS, A*04/14/2017 2 - Rash Comments: Local erythema and swelling in the affected arm. Date Reviewed: 06/17/2018 Reviewed by: Ibis Martins MA - Fully Assessed Reason for Visit: Established Patient [[id number]] Primary Visit Diagnosis:Other chest pain [R07.89] Order(s):CT STERNUM WO [facility] [[id number]] Order #: [id number] FUTURE Prescriptions as of 06/17/2018 Sig: X ALBUTEROL SULFATE HFA 90 MCG/* Inhale 2 Puffs as instructed * BENZONATATE 100 MG CAPSULE Take 1 capsule by mouth three* SERTRALINE 50 MG TABLET 1/2 pill daily X 1 week; then* Patient not taking: Reported on 06/17/2018 OMEPRAZOLE 20 MG CAPSULE,VANCE* Take 1 capsule by mouth once * Patient not taking: Reported on 06/17/2018 ONDANSETRON 4 MG DISINTEGRATI* Take 1 tablet by mouth every * Patient not taking: Reported on 06/17/2018 VARENICLINE 0.5 MG (11)-1 MG * Take 1 tablet (0.5 mg) by liat* Patient not taking: Reported on 05/09/2018 VIT NO.95-FERROUS FU* Take 1 tablet by mouth once d* Patient not taking: Reported on 06/17/2018 NYSTATIN-TRIAMCINOLONE 100,00* Apply sparingly to perineum t* Patient not taking: Reported on 06/17/2018 TRIAMCINOLONE ACETONIDE 0.1 %* Apply 1 application to affect* Patient not taking: Reported on 06/17/2018 Problem List As Of Date 06/17/2018 Noted Resolved Heart valve stenosis [I38] INVALID FOR* Obesity, Class III, BMI 40-49.9 (morbid obesity*INVALID FOR* Hyperinsulinemia [E16.1] INVALID FOR* Adjustment disorder with mixed anxiety and depr*INVALID FOR* More... Seasonal allergic rhinitis due to pollen [J30.1]INVALID FOR* Morbid obesity (HCC) [E66.01] Asthma [J45.909] More... Aortic stenosis [I35.0] More... PCOS (polycystic ovarian syndrome) [E28.2] More... Pre-op testing [Z01.818] INVALID FOR* More... Discharge planning issues [Z02.9] INVALID FOR* More... On mechanically assisted ventilation (HCC) [Z99*INVALID FOR*06/18/2017 More... Acute post-operative pain [G89.18] INVALID FOR* More... Atelectasis [J98.11] INVALID FOR* More... Hypovolemia [E86.1] INVALID FOR*06/18/2017 More... Essential hypertension [I10] INVALID FOR* More... Transition of care performed with sharing of cl*INVALID FOR* More... Nicotine use disorder, F17.2 [F17.200] INVALID FOR* QUINTON (obstructive sleep apnea) [G47.33] INVALID FOR* Other instructions from your clinician: LIFESTYLE CHANGE A healthy lifestyle is the most important component of your overall treatment plan. Please give serious thought to the following areas and commit to making fpc changes. EAT A WHOLE FOOD, PLANT BASED DIET The nutrition your body gets is more important than the medicine you take. What matters most is the overall way you eat. We encourage you to minimize the use of animal products (which include dairy and all meats except fatty fish) and use whole, unprocessed plant foods to provide your protein, vitamins and other nutrients. We have a lot of information to share with you on this topic. This is not a diet. It is a way of life that you will keep with you. EXERCISE REGULARLY It is not important to spend hours in the gym, lifting weights and perspiring heavily. A total of 2-3 hours per week of aerobic (causing you to be moderately short of breath) exercise is sufficient to improve your health. Talk to us before you begin a new exercise program, if you have heart disease or experience shortness of breath or chest pain. REDUCE STRESS Chronic emotional and physical stress leads to disease. Ways of reducing stress include meditation, visualization, prayer, yoga and other forms of relaxation therapy. Consistency is the ramirez. Find a technique that works for you and do it every day. CULTIVATE RELATIONSHIPS Loneliness and isolation have a major negative impact on health. Seek out others who can love, care for and nurture you. Avoid hurtful relationships. MAINTAIN IDEAL BODY WEIGHT The best way to do this is to do all the things above. Our bodies naturally find the right weight if we keep moving and feed ourselves the right food. If your BMI is greater than 25, we strongly recommend a referral to a weight management program. Please speak to us or your family physician about available programs. AVOID NICOTINE IN ALL FORMS This includes all tobacco products, whether chewed, smoked, vaped, or rubbed on the skin. Smoking cessation programs, which can make use of tobacco substitutes, medications to suppress cravings and behavior management, are available. Please contact your family physician about programs in your area. Encounter Status:Closed by EMMANUEL HAIDER MD on 06/17/18 OBSOLETE Observed: 06/17/2018 Status: COMPLETED Source: [place] 12:00 AM [facility] REPOSITORY Refill (FAMPWS) KEILY RASMUSSEN ([id number]) 1995 F Date Time Provider Department 06/17/18 JOS BARNES) [place] During your visit today, we recorded the following information about you: Katie Hamilton Ravi Psr 06/17/2018 11:21 AM Signed Patient has been identified by name and date of : Yes Pending Prescriptions Disp Refills OMEPRAZOLE 20 MG CAPSULE,DELAYED RELEASE 30 capsule 3 Sig: Take 1 capsule by mouth once daily. SUKUMAR: No SERTRALINE 50 MG TABLET 30 tablet 2 Si/2 pill daily X 1 week; then increase to a whole pill daily. SUKUMAR: No ONDANSETRON 4 MG DISINTEGRATING TABLET 30 tablet 0 Sig: Take 1 tablet by mouth every 8 hours as needed for Nausea/Vomiting. SUKUMAR: No ALBUTEROL SULFATE HFA 90 MCG/ACTUATION AEROSOL INHALER 1 Inhaler 1 Sig: Inhale 2 Puffs as instructed every 4 hours as needed. SUKUMAR: No VIT NO.95-FERROUS FUMARATE 28 MG-FOLIC ACID 800 MCG TABLET 30 tablet 5 Sig: Take 1 tablet by mouth once daily. SUKUMAR: No RX INSTRUCTIONS:patient is totally out of medications Patient aware RX will be sent to pharmacy. No need to notify patient. Katie Ravi Psr Lizzie Pate MA, BRIAN 06/17/2018 11:29 AM Signed Only needs albuterol. Next Scheduled Office Visit:none Last Office Visit:05/15/18 Lizzie Pate MA Allergies As of Date: 06/17/2018 Noted Allergy Reaction AMOXICILLIN 04/15/2018 2 - Rash DOXYCYCLINE 05/13/2018 2 - Rash PENICILLINS 11/28/2014 4 - Hives TETANUS AND DIPHTHERIA TOXOIDS, A*04/14/2017 2 - Rash Comments: Local erythema and swelling in the affected arm. Date Reviewed: 06/17/2018 Reviewed by: Ibis Martins MA - Fully Assessed Reason for Visit: Refill Request [94] Visit Diagnoses:Bronchitis [J40] Nausea and vomiting, intractability of vomiting not specified, unspecified vomiting type [R11.2] Order(s):albuterol HFA (VENTOLIN HFA) 90 mcg/actuation inhalerInhale 2 Puffs as instructed every 4 hours as needed.Disp: 1 InhalerRfl: 1 Prescriptions as of 06/17/2018 Sig: ALBUTEROL SULFATE HFA 90 MCG/* Inhale 2 Puffs as instructed * SERTRALINE 50 MG TABLET 1/2 pill daily X 1 week; then* Patient not taking: Reported on 06/17/2018 OMEPRAZOLE 20 MG CAPSULE,VANCE* Take 1 capsule by mouth once * Patient not taking: Reported on 06/17/2018 ONDANSETRON 4 MG DISINTEGRATI* Take 1 tablet by mouth every * Patient not taking: Reported on 06/17/2018 BENZONATATE 100 MG CAPSULE Take 1 capsule by mouth three* VARENICLINE 0.5 MG (11)-1 MG * Take 1 tablet (0.5 mg) by liat* Patient not taking: Reported on 05/09/2018 VIT NO.95-FERROUS FU* Take 1 tablet by mouth once d* Patient not taking: Reported on 06/17/2018 NYSTATIN-TRIAMCINOLONE 100,00* Apply sparingly to perineum t* Patient not taking: Reported on 06/17/2018 TRIAMCINOLONE ACETONIDE 0.1 %* Apply 1 application to affect* Patient not taking: Reported on 06/17/2018 Problem List As Of Date 06/17/2018 Noted Resolved Heart valve stenosis [I38] INVALID FOR* Obesity, Class III, BMI 40-49.9 (morbid obesity*INVALID FOR* Hyperinsulinemia [E16.1] INVALID FOR* Adjustment disorder with mixed anxiety and depr*INVALID FOR* More... Seasonal allergic rhinitis due to pollen [J30.1]INVALID FOR* Morbid obesity (HCC) [E66.01] Asthma [J45.909] More... Aortic stenosis [I35.0] More... PCOS (polycystic ovarian syndrome) [E28.2] More... Pre-op testing [Z01.818] INVALID FOR* More... Discharge planning issues [Z02.9] INVALID FOR* More... On mechanically assisted ventilation (HCC) [Z99*INVALID FOR*06/18/2017 More... Acute post-operative pain [G89.18] INVALID FOR* More... Atelectasis [J98.11] INVALID FOR* More... Hypovolemia [E86.1] INVALID FOR*06/18/2017 More... Essential hypertension [I10] INVALID FOR* More... Transition of care performed with sharing of cl*INVALID FOR* More... Nicotine use disorder, F17.2 [F17.200] INVALID FOR* QUINTON (obstructive sleep apnea) [G47.33] INVALID FOR* Prescriptions ordered this encounter Disp Refills Start End ALBUTEROL SULFATE HFA 90 MCG/ACTUATI* 1 In* 1 06/17/2018 Route: INHALATION Sig: Inhale 2 Puffs as instructed every 4 hours as needed. Medications Discontinued During This Encounter albuterol HFA (VENTOLIN HFA) 90 mcg/* 1 In* 1 05/13/2018 06/17/2018 Route: INHALATION Sig: Inhale 2 Puffs as instructed every 4 hours as needed. Disc: Reason for discontinue is not on file. Encounter Status:Closed by MELISA BARRIENTOS CNP on 06/17/18 JOHNN Observed: 05/27/2018 Status: COMPLETED Source: [place] 12:00 AM [facility] REPOSITORY Telephone ([facility]) KEILY RASMUSSEN ([id number]) 1995 F Date Time Provider Department 05/27/18 GAYLE MCCARTNEY (MARILYN) [facility] During your visit today, we recorded the following information about you: Gayle Mccartney RN APRN.FLOUR TESTER 05/27/2018 7:37 AM Signed Please let the patient know that the ultrasound was normal. Gastric emptying study still hasn't been done either. Follow up appointment if symptoms are persisting (was last seen in January) Gayle Mccartney RN APRN.JOHN Trivedi LPN 05/27/2018 8:04 AM Signed Left a detailed message for patient with information listed below. Enzo Cook LPN 05/27/2018 9:30 AM Signed Patient returned call and went over results, notes from Odessa Mccartney TECHNICAL SUPPORT ASSISTANT with understanding. Assisted with transfer to reducing system operator to get Gastric study scheduled. Allergies As of Date: 05/27/2018 Noted Allergy Reaction AMOXICILLIN 04/15/2018 2 - Rash DOXYCYCLINE 05/13/2018 2 - Rash PENICILLINS 11/28/2014 4 - Hives TETANUS AND DIPHTHERIA TOXOIDS, A*04/14/2017 2 - Rash Comments: Local erythema and swelling in the affected arm. Date Reviewed: 05/15/2018 Reviewed by: Irene Fontenot (Neal) NEAL Rodriguez - Fully Assessed Reason for Visit: Results [95] Prescriptions as of 05/27/2018 Sig: ALBUTEROL SULFATE HFA 90 MCG/* Inhale 2 Puffs as instructed * BENZONATATE 100 MG CAPSULE Take 1 capsule by mouth three* NYSTATIN-TRIAMCINOLONE 100,00* Apply sparingly to perineum t* OMEPRAZOLE 20 MG CAPSULE,VANCE* Take 1 capsule by mouth once * ONDANSETRON 4 MG DISINTEGRATI* Take 1 tablet by mouth every * VIT NO.95-FERROUS FU* Take 1 tablet by mouth once d* SERTRALINE 50 MG TABLET 1/2 pill daily X 1 week; then* TRIAMCINOLONE ACETONIDE 0.1 %* Apply 1 application to affect* VARENICLINE 0.5 MG (11)-1 MG * Take 1 tablet (0.5 mg) by liat* Patient not taking: Reported on 05/09/2018 Problem List As Of Date 05/27/2018 Noted Resolved Heart valve stenosis [I38] INVALID FOR* Obesity, Class III, BMI 40-49.9 (morbid obesity*INVALID FOR* Hyperinsulinemia [E16.1] INVALID FOR* Adjustment disorder with mixed anxiety and depr*INVALID FOR* More... Seasonal allergic rhinitis due to pollen [J30.1]INVALID FOR* Morbid obesity (HCC) [E66.01] Asthma [J45.909] More... Aortic stenosis [I35.0] More... PCOS (polycystic ovarian syndrome) [E28.2] More... Pre-op testing [Z01.818] INVALID FOR* More... Discharge planning issues [Z02.9] INVALID FOR* More... On mechanically assisted ventilation (HCC) [Z99*INVALID FOR*06/18/2017 More... Acute post-operative pain [G89.18] INVALID FOR* More... Atelectasis [J98.11] INVALID FOR* More... Hypovolemia [E86.1] INVALID FOR*06/18/2017 More... Essential hypertension [I10] INVALID FOR* More... Transition of care performed with sharing of cl*INVALID FOR* More... Nicotine use disorder, F17.2 [F17.200] INVALID FOR* QUINTON (obstructive sleep apnea) [G47.33] INVALID FOR* Encounter Status:Closed by ENZO TRIVEDI LPN on 05/27/18 PROGRESS Observed: 05/25/2018 Status: COMPLETED Source: [place] 9:14 AM [facility] REPOSITORY HNO ID: [id number] Author: Tessa Cortes Service: (none) Author Type: Development Scientist Type: Progress Notes Filed: 05/25/2018 9:14 AM Note Text: Radiology Service Progress Note PATIENT NAME: Keily Rasmussen DATE OF SERVICE: May 25, 2018 TIME: 9:14 AM PATIENT IDENTITY VERIFICATION COMPLETED USING TWO (2) METHODS: Patient confirmed name verbally and Date of . PATIENT GENDER DATA: Female. status: : No status: N/A PATIENT RELEVANT IMPLANT DATA REVIEWED: Not Applicable RADIOLOGY DEPARTMENT: Ultrasound PERIPHERAL IV DATA: Not applicable SIGNED BY: TESSA CORTES RDMS RVSekou May 25, 2018 9:14 AM US ABD RIGHT UPPER Observed: 05/25/2018 Status: F Source: [facility] 9:13 AM [facility] REPOSITORY * * *Final Report* * * DATE OF EXAM: May 25 2018 9:13AM WRU 1032 - US ABD RIGHT UPPER QUADRANT / PROCEDURE REASON: Nausea * * * * Physician Interpretation * * * * EXAMINATION: RIGHT UPPER QUADRANT ULTRASOUND HISTORY: Nausea TECHNIQUE: Sonography of the right upper quadrant was performed. Images were obtained and stored in a permanent archive. MQ: URUQ_1 COMPARISON: None RESULT: Pancreas: Pancreas not well seen due to overlying bowel gas. Liver: Echogenicity: Heterogeneous Surface contour: Smooth Lesions: None seen Biliary: No intrahepatic bile duct dilatation CBD: Normal in size at the hilum. Gallbladder: -Contents: No stones or sludge -Wall: No gallbladder wall thickening -Other: No pericholecystic edema Right Kidney: Grossly unremarkable Ascites: No ascites is seen IMPRESSION: 1. Fatty liver. No focal masses are seen in the liver. 2. Otherwise Unremarkable Bridge Tender: PSCZenon Transcribe Date/Time: May 25 2018 5:33P Dictated by : NISSA ZIMMER DO This examination was interpreted and the report reviewed and electronically signed by: NISSA ZIMMER DO on May 25 2018 5:34PM EST [id number] PROGRESS Observed: 05/15/2018 Status: COMPLETED Source: [place] 10:07 AM [facility] REPOSITORY HNO ID: [id number] Author: Melisa He) Podlogar Service: (none) Author Type: Nurse Practitioner Type: Progress Notes Filed: 05/15/2018 4:00 PM Note Text: 05/15/2018 Recheck SUBJECTIVE: This is a 22 year old that is here today for Above Complaints. Seen on Friday for sore throat and lump to right breast. Negative strep. Right breast area treated for cellulitis. Returns today for recheck. Still has sore throat. Other symptoms of vomiting, achy, fevers, and chills better. Tolerating antibiotics with no side effects. Decides to get Zithromax filled and take for her throat as Dr. Linda ordered on 05/09. Using warm compresses to area on right breast- denies increasing redness, tenderness, warmth, or drainage to area. Also denies rashes, difficulty swallowing or handling on secretions, SOB, dyspnea, wheezing, chest pain, abdominal pain, nausea, vomiting, or diarrhea. Reports she has had sore throat and enlarged tonsils since childhood and would like to see ENT for this. PAST MEDICAL HISTORY Diagnosis Date - Aortic stenosis s/p repair of a PDA and subvalvular aortic stenosis. Sees Dr. Haider and Dr. Marie - Asthma - Morbid obesity (HCC) - PCOS (polycystic ovarian syndrome) elevated testosterone and elevated insulin - PDA (patent ductus arteriosus) s/p repair age 10 - Tobacco use ALLERGIES Amoxicillin; Doxycycline; Penicillins; Tetanus And Diphtheria Toxoids, Adsorbed, Adult MEDICATIONS Current Outpatient Prescriptions: albuterol HFA (VENTOLIN HFA) 90 mcg/actuation inhaler Inhale 2 Puffs as instructed every 4 hours as needed. omeprazole (PRILOSEC) 20 mg capsule Take 1 capsule by mouth once daily. ondansetron orally disintegrating (ZOFRAN ODT) 4 mg disintegrating tablet Take 1 tablet by mouth every 8 hours as needed for Nausea/Vomiting. vit-iron fumarate-fa ( MULTIVITAMINS) 28 mg iron- 800 mcg tab Take 1 tablet by mouth once daily. sulfamethoxazole-trimethoprim (BACTRIM DS) 800-160 mg per tablet Take 1 tablet by mouth twice daily for 10 days. benzonatate (TESSALON PERLE) 100 mg capsule Take 1 capsule by mouth three times daily as needed. nystatin-triamcinolone (MYCOLOG) ointment Apply sparingly to perineum twice daily for irritation/infection. sertraline (ZOLOFT) 50 mg tablet 1/2 pill daily X 1 week; then increase to a whole pill daily. (Patient taking differently: Take 50 mg by mouth once daily. ) triamcinolone acetonide (KENALOG) 0.1 % cream Apply 1 application to affected area twice daily. Apply to affected area. varenicline (CHANTIX STARTING MONTH BOX) 0.5 mg (11)- 1 mg (42) tablet Take 1 tablet (0.5 mg) by mouth once daily for 3 days, then 1 tablet (0.5 mg) twice daily for 4 days, then one tablet (1 mg) twice daily. (Patient not taking: Reported on 05/09/2018 ) No current facility-administered medications for this visit. Medications and allergies reviewed by this provider. SOCIAL HISTORY Social History Marital status: Single Spouse name: Years of education: Number of children: Occupational History Occupation Employer Comment Unemployed Social History Main Topics Smoking status: Current Every Day Smoker Packs/day: 0.50 Years: 2.00 Types: Cigarettes Smokeless tobacco: Never Used Alcohol use: No Drug use: No Sexual activity: Yes Partners with: Male REVIEW OF SYSTEMS All other reviewed and negative other than HPI. OBJECTIVE: BP 120/60 (BP Site: Left Arm, BP Position: Sitting, BP Cuff Size: Large Adult) Pulse 76 Temp 37 ?C (98.6 ?F) Resp 18 Wt (!) 138.8 kg (306 lb) BMI 47.93 kg/m? . Vital signs reviewed by this provider. APPEARANCE Well appearing, alert, in no acute distress, well-hydrated, well nourished. and Morbidly obese EYES PERRLA, conjunctiva and sclera normal. EARS External ears normal, canals clear NOSE/SINUS Nares normal. Septum midline. Mucosa normal. No drainage or sinus tenderness. THROAT moderate erythema and tonsillar hypertrophy,2- 3+ NECK Supple, no adenopathy; thyroid symmetric, normal size, no bruits HEART RRR with normal S1 and S2, no murmurs, no gallops, no JVD appreciated LUNG clear to auscultation BREAST FEMALE No dimpling or skin changes and Normal nipples without discharge. Decreased erythema from Friday. TTP, no active drainage or increased warmth EXTREMITIES Extremities normal, No deformities, No skin discoloration and No edema SKIN Skin color, texture, turgor normal ASSESSMENT/PLAN: 1. Cellulitis of skin - ICD9: 682.9, ICD10: L03.90 (primary diagnosis) - improving - no red flag exam findings - red flag symptoms discussed, verbalizes understanding - No lymphangetic streaking, this was defined for patient to watch for and to seek medical care immediately if appears - Area of cellulitis defined with pen, seek further attention if this area continues to enlarge - complete entire course of antibiotics - follow-up if persists, to ER with red flag symptoms 2. Chronic tonsillar hypertrophy - ICD9: 474.11, ICD10: J35.1 - CONSULT TO ENT 3. Sore throat - ICD9: 462, ICD10: J02.9 - improving - no red flag exam symptoms - red flag symptoms discussed, verbalizes understanding - finish entire course of antibiotics - warm salt water gargles, motrin or tylenol for pain - CONSULT TO ENT - follow-up if persists, to ER with red flag symptoms Melisa Barrientos APRN.CNP Prescription instructions reviewed with patient as applicable. Patient advised if symptoms do not improve or if symptoms worsen sooner, to contact their primary care physician. Potential red flag symptoms discussed with the patient. Reviewed appropriate action plan to take if red flag symptoms occur. Patient agreeable to treatment plan. CNOV Observed: 05/15/2018 Status: COMPLETED Source: [place] 9:40 AM [facility] REPOSITORY Office Visit ([facility]) KEILY RASMUSSEN ([id number]) 1995 F Date Time Provider Department 05/15/18 9:40 AM MELISA BARRIENTOS (JOHN) [place] During your visit today, we recorded the following information about you: Temperature Pulse Respiration Blood pressure 98.6 degrees 76/minute 18/minute 120/60 Weight 138.8 kg Melisa Barrientos APRN.CNP 05/15/2018 4:00 PM Signed 05/15/2018 Recheck SUBJECTIVE: This is a 22 year old that is here today for Above Complaints. Seen on Friday for sore throat and lump to right breast. Negative strep. Right breast area treated for cellulitis. Returns today for recheck. Still has sore throat. Other symptoms of vomiting, achy, fevers, and chills better. Tolerating antibiotics with no side effects. Decides to get Zithromax filled and take for her throat as Dr. Linda ordered on 05/09. Using warm compresses to area on right breast- denies increasing redness, tenderness, warmth, or drainage to area. Also denies rashes, difficulty swallowing or handling on secretions, SOB, dyspnea, wheezing, chest pain, abdominal pain, nausea, vomiting, or diarrhea. Reports she has had sore throat and enlarged tonsils since childhood and would like to see ENT for this. PAST MEDICAL HISTORY Diagnosis Date - Aortic stenosis s/p repair of a PDA and subvalvular aortic stenosis. Sees Dr. Haider and Dr. Marie - Asthma - Morbid obesity (HCC) - PCOS (polycystic ovarian syndrome) elevated testosterone and elevated insulin - PDA (patent ductus arteriosus) s/p repair age 10 - Tobacco use ALLERGIES Amoxicillin; Doxycycline; Penicillins; Tetanus And Diphtheria Toxoids, Adsorbed, Adult MEDICATIONS Current Outpatient Prescriptions: albuterol HFA (VENTOLIN HFA) 90 mcg/actuation inhaler Inhale 2 Puffs as instructed every 4 hours as needed. omeprazole (PRILOSEC) 20 mg capsule Take 1 capsule by mouth once daily. ondansetron orally disintegrating (ZOFRAN ODT) 4 mg disintegrating tablet Take 1 tablet by mouth every 8 hours as needed for Nausea/Vomiting. vit-iron fumarate-fa ( MULTIVITAMINS) 28 mg iron- 800 mcg tab Take 1 tablet by mouth once daily. sulfamethoxazole-trimethoprim (BACTRIM DS) 800-160 mg per tablet Take 1 tablet by mouth twice daily for 10 days. benzonatate (TESSALON PERLE) 100 mg capsule Take 1 capsule by mouth three times daily as needed. nystatin-triamcinolone (MYCOLOG) ointment Apply sparingly to perineum twice daily for irritation/infection. sertraline (ZOLOFT) 50 mg tablet 1/2 pill daily X 1 week; then increase to a whole pill daily. (Patient taking differently: Take 50 mg by mouth once daily. ) triamcinolone acetonide (KENALOG) 0.1 % cream Apply 1 application to affected area twice daily. Apply to affected area. varenicline (CHANTIX STARTING MONTH BOX) 0.5 mg (11)- 1 mg (42) tablet Take 1 tablet (0.5 mg) by mouth once daily for 3 days, then 1 tablet (0.5 mg) twice daily for 4 days, then one tablet (1 mg) twice daily. (Patient not taking: Reported on 05/09/2018 ) No current facility-administered medications for this visit. Medications and allergies reviewed by this provider. SOCIAL HISTORY Social History Marital status: Single Spouse name: Years of education: Number of children: Occupational History Occupation Employer Comment Unemployed Social History Main Topics Smoking status: Current Every Day Smoker Packs/day: 0.50 Years: 2.00 Types: Cigarettes Smokeless tobacco: Never Used Alcohol use: No Drug use: No Sexual activity: Yes Partners with: Male REVIEW OF SYSTEMS All other reviewed and negative other than HPI. OBJECTIVE: BP 120/60 (BP Site: Left Arm, BP Position: Sitting, BP Cuff Size: Large Adult) Pulse 76 Temp 37 ?C (98.6 ?F) Resp 18 Wt (!) 138.8 kg (306 lb) BMI 47.93 kg/m? . Vital signs reviewed by this provider. APPEARANCE Well appearing, alert, in no acute distress, well- hydrated, well nourished. and Morbidly obese EYES PERRLA, conjunctiva and sclera normal. EARS External ears normal, canals clear NOSE/SINUS Nares normal. Septum midline. Mucosa normal. No drainage or sinus tenderness. THROAT moderate erythema and tonsillar hypertrophy,2- 3+ NECK Supple, no adenopathy; thyroid symmetric, normal size, no bruits HEART RRR with normal S1 and S2, no murmurs, no gallops, no JVD appreciated LUNG clear to auscultation BREAST FEMALE No dimpling or skin changes and Normal nipples without discharge. Decreased erythema from Friday. TTP, no active drainage or increased warmth EXTREMITIES Extremities normal, No deformities, No skin discoloration and No edema SKIN Skin color, texture, turgor normal ASSESSMENT/PLAN: 1. Cellulitis of skin - ICD9: 682.9, ICD10: L03.90 (primary diagnosis) - improving - no red flag exam findings - red flag symptoms discussed, verbalizes understanding - No lymphangetic streaking, this was defined for patient to watch for and to seek medical care immediately if appears - Area of cellulitis defined with pen, seek further attention if this area continues to enlarge - complete entire course of antibiotics - follow-up if persists, to ER with red flag symptoms 2. Chronic tonsillar hypertrophy - ICD9: 474.11, ICD10: J35.1 - CONSULT TO ENT 3. Sore throat - ICD9: 462, ICD10: J02.9 - improving - no red flag exam symptoms - red flag symptoms discussed, verbalizes understanding - finish entire course of antibiotics - warm salt water gargles, motrin or tylenol for pain - CONSULT TO ENT - follow-up if persists, to ER with red flag symptoms Melisa Barrientos APRN.JOHN Prescription instructions reviewed with patient as applicable. Patient advised if symptoms do not improve or if symptoms worsen sooner, to contact their primary care physician. Potential red flag symptoms discussed with the patient. Reviewed appropriate action plan to take if red flag symptoms occur. Patient agreeable to treatment plan. Melisa Barrientos APRN.CNP 05/15/2018 10:18 AM Signed Complete entire course of antibiotics If redness, tenderness, swelling persisit return to office- if worsens and starts red streaking or redness progresses outside of lines go to ER May continue warm compresses Referring Provider: MELISA BARRIENTOS (JOHN) [[id number]] Allergies As of Date: 05/15/2018 Noted Allergy Reaction AMOXICILLIN 04/15/2018 2 - Rash DOXYCYCLINE 05/13/2018 2 - Rash PENICILLINS 11/28/2014 4 - Hives TETANUS AND DIPHTHERIA TOXOIDS, A*04/14/2017 2 - Rash Comments: Local erythema and swelling in the affected arm. Date Reviewed: 05/15/2018 Reviewed by: Irene Fontenot (Neal) NEAL Rodriguez - Fully Assessed Primary Visit Diagnosis:Cellulitis of skin [L03.90] Other Visit Diagnoses:Chronic tonsillar hypertrophy [J35.1] Sore throat [J02.9] Order(s):CONSULT TO ENT [9008] Order #: [id number]: 1 sertraline (ZOLOFT) 50 mg tablet1/2 pill daily X 1 week; then increase to a whole pill daily.Disp: 30 tabletRfl: 2 Prescriptions as of 05/15/2018 Sig: ALBUTEROL SULFATE HFA 90 MCG/* Inhale 2 Puffs as instructed * OMEPRAZOLE 20 MG CAPSULE,VANCE* Take 1 capsule by mouth once * ONDANSETRON 4 MG DISINTEGRATI* Take 1 tablet by mouth every * VIT NO.95-FERROUS FU* Take 1 tablet by mouth once d* SULFAMETHOXAZOLE 800 MG-TRIME* Take 1 tablet by mouth twice * BENZONATATE 100 MG CAPSULE Take 1 capsule by mouth three* NYSTATIN-TRIAMCINOLONE 100,00* Apply sparingly to perineum t* SERTRALINE 50 MG TABLET 1/2 pill daily X 1 week; then* TRIAMCINOLONE ACETONIDE 0.1 %* Apply 1 application to affect* VARENICLINE 0.5 MG (11)-1 MG * Take 1 tablet (0.5 mg) by liat* Patient not taking: Reported on 05/09/2018 Problem List As Of Date 05/15/2018 Noted Resolved Heart valve stenosis [I38] INVALID FOR* Obesity, Class III, BMI 40-49.9 (morbid obesity*INVALID FOR* Hyperinsulinemia [E16.1] INVALID FOR* Adjustment disorder with mixed anxiety and depr*INVALID FOR* More... Seasonal allergic rhinitis due to pollen [J30.1]INVALID FOR* Morbid obesity (HCC) [E66.01] Asthma [J45.909] More... Aortic stenosis [I35.0] More... PCOS (polycystic ovarian syndrome) [E28.2] More... Pre-op testing [Z01.818] INVALID FOR* More... Discharge planning issues [Z02.9] INVALID FOR* More... On mechanically assisted ventilation (HCC) [Z99*INVALID FOR*06/18/2017 More... Acute post-operative pain [G89.18] INVALID FOR* More... Atelectasis [J98.11] INVALID FOR* More... Hypovolemia [E86.1] INVALID FOR*06/18/2017 More... Essential hypertension [I10] INVALID FOR* More... Transition of care performed with sharing of cl*INVALID FOR* More... Nicotine use disorder, F17.2 [F17.200] INVALID FOR* QUINTON (obstructive sleep apnea) [G47.33] INVALID FOR* Other instructions from your clinician: Complete entire course of antibiotics If redness, tenderness, swelling persisit return to office- if worsens and starts red streaking or redness progresses outside of lines go to ER May continue warm compresses Prescriptions ordered this encounter Disp Refills Start End SERTRALINE 50 MG TABLET 30 t* 2 05/15/2018 Si/2 pill daily X 1 week; then increase to a whole pill daily. Medications Discontinued During This Encounter sertraline (ZOLOFT) 50 mg tablet 30 t* 2 03/04/2018 05/15/2018 Si/2 pill daily X 1 week; then increase to a whole pill daily. Patient taking differently: Take 50 mg by mouth once daily. Disc: Reason for discontinue is not on file. Encounter Status:Closed by PODLOGARMELISA CNP on 05/15/18 Observed: 05/13/2018 Status: F Source: [place] THROAT CULT/ROUTINE 1:35 PM [facility] REPOSITORY Sp. Request/Comment: - Swab Culture Result - Few Streptococcus dysgalactiae (Group C streptococcus) --> ABNORMAL ALERT Susceptibility testing not performed on beta hemolytic streptococci due to predictable susceptibility to pen icillin and other beta lactams. For testing, call Microbiology within 72 hours. --> ABNORMAL ALERT Performed By: #### THRCUL #### [facility] [address] [place], [place] [address] PROGRESS Observed: 05/13/2018 Status: COMPLETED Source: [place] 1:07 PM [facility] REPOSITORY HNO ID: [id number] Author: Melisa He) Podlogar Service: (none) Author Type: Nurse Practitioner Type: Progress Notes Filed: 05/13/2018 4:12 PM Note Text: 05/13/2018 Patient presents with: Vomiting: diarrhea, sore throat, cough, fever, chills, achy, found lump in rt breast this am SUBJECTIVE: This is a 22 year old that is here today for Above Complaints. Saw Dr Linda on 05/09/2018. See office note. Returns today with complaints of vomiting, diarrhea, sore throat, fever, chills, achy. Was to start taking doxycyline did not get filled as she breaks out in rash. A prescription for Zithromax was sent, however patient did not get message that this was done. Vomiting and diarrhea started yesterday- diarrhea is described as foamy. Has not taken anything OTC for vomiting and diarrhea. Using tessalon Perles and mucinex for respiratory symptoms. Positive for sick contacts- brother has vomiting and diarrhea, tactile fevers, ear pain, weight loss, SOB, dyspnea, wheezing, or abdominal pain. Denies rashes, ear pain, difficulty swallowing, difficulty handing secretions, SOB, dyspnea, wheezing, and abdominal pain. PAST MEDICAL HISTORY Diagnosis Date - Aortic stenosis s/p repair of a PDA and subvalvular aortic stenosis. Sees Dr. Haider and Dr. Marie - Asthma - Morbid obesity (HCC) - PCOS (polycystic ovarian syndrome) elevated testosterone and elevated insulin - PDA (patent ductus arteriosus) s/p repair age 10 - Tobacco use ALLERGIES Amoxicillin; Penicillins; Tetanus And Diphtheria Toxoids, Adsorbed, Adult MEDICATIONS Current Outpatient Prescriptions: albuterol HFA (VENTOLIN HFA) 90 mcg/actuation inhaler Inhale 2 Puffs as instructed every 4 hours as needed. benzonatate (TESSALON PERLE) 100 mg capsule Take 1 capsule by mouth three times daily as needed. doxycycline monohydrate (MONODOX) 100 mg capsule Take 1 capsule by mouth twice daily. omeprazole (PRILOSEC) 20 mg capsule Take 1 capsule by mouth once daily. vit-iron fumarate-fa ( MULTIVITAMINS) 28 mg iron- 800 mcg tab Take 1 tablet by mouth once daily. azithromycin (ZITHROMAX Z-DERREK) 250 mg tablet Take 2 tablets day one, then, 1 tablet daily until gone. nystatin-triamcinolone (MYCOLOG) ointment Apply sparingly to perineum twice daily for irritation/infection. sertraline (ZOLOFT) 50 mg tablet 1/2 pill daily X 1 week; then increase to a whole pill daily. (Patient taking differently: Take 50 mg by mouth once daily. ) triamcinolone acetonide (KENALOG) 0.1 % cream Apply 1 application to affected area twice daily. Apply to affected area. varenicline (CHANTIX STARTING MONTH BOX) 0.5 mg (11)- 1 mg (42) tablet Take 1 tablet (0.5 mg) by mouth once daily for 3 days, then 1 tablet (0.5 mg) twice daily for 4 days, then one tablet (1 mg) twice daily. (Patient not taking: Reported on 05/09/2018 ) No current facility-administered medications for this visit. Medications and allergies reviewed by this provider. SOCIAL HISTORY Social History Marital status: Single Spouse name: Years of education: Number of children: Occupational History Occupation Employer Comment Unemployed Social History Main Topics Smoking status: Current Every Day Smoker Packs/day: 0.50 Years: 2.00 Types: Cigarettes Smokeless tobacco: Never Used Alcohol use: No Drug use: No Sexual activity: Yes Partners with: Male REVIEW OF SYSTEMS All other reviewed and negative other than HPI. OBJECTIVE: BP 120/60 (BP Site: Left Arm, BP Position: Sitting, BP Cuff Size: Large Adult) Pulse 101 Temp 37.9 ?C (100.2 ?F) Resp 18 Wt (!) 138.8 kg (306 lb) SpO2 98% BMI 47.93 kg/m? . Vital signs reviewed by this provider. APPEARANCE Well appearing, alert, in no acute distress, well-hydrated, well nourished. and Morbidly obese EYES PERRLA, conjunctiva and sclera normal. EARS External ears normal, canals clear NOSE/SINUS Nares normal. Septum midline. Mucosa normal. No drainage or sinus tenderness. THROAT mild erythema and tonsillar hypertrophy, 2+ NECK Supple, no adenopathy; thyroid symmetric, normal size, no bruits HEART RRR with normal S1 and S2, no murmurs, no gallops, no JVD appreciated LUNG clear to auscultation BREAST FEMALE Right breast approximatley a quarter sized erythematous area with white head in middle- some surrounding light erythema. No drainage. TTP. No active drainage or fluctuance. ABDOMEN bowel sounds normoactive, no bruits, soft, non-tender, non-distended SKIN Skin color, texture, turgor normal. No rashes to exposed skin ASSESSMENT/PLAN: 1. Sore throat - ICD9: 462, ICD10: J02.9 (primary diagnosis) - suspect viral - no red flag symptoms -red flag symptoms discussed, verbalizes understanding - Rapid Strep negative in the office today and Throat culture pending - Discussed supportive care treatment with fluids, rest and analgesia. - The patient may also use OTC cough and cold meds as needed, warm salt water gargles, throat lozenges and/or OTC throat spray as needed and nasal saline gtts and suction prn. - Contagious dz precautions discussed- including considered contagious until on antibiotics for 24 hours - The patient should follow up in 3-5 days if symptoms persist or worsen, to ER with red flag symptoms - Call back if drooling, increased temperature, symptoms of dehydration and/or still sick in one week - THROAT CULTURE 2. Cellulitis of skin - ICD9: 682.9, ICD10: L03.90 - no red flag exam findings - red flag symptoms discussed, verbalizes understanding - warm compresses to area twice a day - Begin treatment with Trimethoprim-sulfamethozazole (Bactrim) DS PO BID - No lymphangetic streaking, this was defined for patient to watch for and to seek medical care immediately if appears - Area of cellulitis defined with pen, seek further attention if this area continues to enlarge - Follow up for recheck in two days, to ER with red flag symptoms - SULFAMETHOXAZOLE 800 MG-TRIMETHOPRIM 160 MG TABLET 3. Nausea and vomiting, intractability of vomiting not specified, unspecified vomiting type - ICD9: 787.01, ICD10: R11.2 -likely gastritis - no red flag symptoms - red flag symptoms discussed, verbalizes understanding - BRAT diet, push fluids avoid sodas - ONDANSETRON 4 MG DISINTEGRATING TABLET - follow-up if persisting, to ER with red flag symtpoms 4. Diarrhea, unspecified type - ICD9: 787.91, ICD10: R19.7 -plan as above Melisa Barrientos APRN.FLOUR TESTER Prescription instructions reviewed with patient as applicable. Patient advised if symptoms do not improve or if symptoms worsen sooner, to contact their primary care physician. Potential red flag symptoms discussed with the patient. Reviewed appropriate action plan to take if red flag symptoms occur. Patient agreeable to treatment plan. HENRIQUEOV Observed: 05/13/2018 Status: COMPLETED Source: [place] 1:00 PM [facility] REPOSITORY [facility] VALERYKEILY A ([id number]) 1995 F Date Time Provider Department 05/13/18 1:00 PM MELISA BARRIENTOS (DEMETRIO RAMIREZ During your visit today, we recorded the following information about you: Temperature Pulse Respiration Blood pressure 100.2 degrees 101/minute 18/minute 120/60 Weight 138.8 kg Melisa Barrientos APRN.CNP 05/13/2018 4:12 PM Signed 05/13/2018 Patient presents with: Vomiting: diarrhea, sore throat, cough, fever, chills, achy, found lump in rt breast this am SUBJECTIVE: This is a 22 year old that is here today for Above Complaints. Saw Dr Linda on 05/09/2018. See office note. Returns today with complaints of vomiting, diarrhea, sore throat, fever, chills, achy. Was to start taking doxycyline did not get filled as she breaks out in rash. A prescription for Zithromax was sent, however patient did not get message that this was done. Vomiting and diarrhea started yesterday- diarrhea is described as foamy. Has not taken anything OTC for vomiting and diarrhea. Using tessalon Perles and mucinex for respiratory symptoms. Positive for sick contacts- brother has vomiting and diarrhea, tactile fevers, ear pain, weight loss, SOB, dyspnea, wheezing, or abdominal pain. Denies rashes, ear pain, difficulty swallowing, difficulty handing secretions, SOB, dyspnea, wheezing, and abdominal pain. PAST MEDICAL HISTORY Diagnosis Date - Aortic stenosis s/p repair of a PDA and subvalvular aortic stenosis. Sees Dr. Haider and Dr. Marie - Asthma - Morbid obesity (HCC) - PCOS (polycystic ovarian syndrome) elevated testosterone and elevated insulin - PDA (patent ductus arteriosus) s/p repair age 10 - Tobacco use ALLERGIES Amoxicillin; Penicillins; Tetanus And Diphtheria Toxoids, Adsorbed, Adult MEDICATIONS Current Outpatient Prescriptions: albuterol HFA (VENTOLIN HFA) 90 mcg/actuation inhaler Inhale 2 Puffs as instructed every 4 hours as needed. benzonatate (TESSALON PERLE) 100 mg capsule Take 1 capsule by mouth three times daily as needed. doxycycline monohydrate (MONODOX) 100 mg capsule Take 1 capsule by mouth twice daily. omeprazole (PRILOSEC) 20 mg capsule Take 1 capsule by mouth once daily. vit-iron fumarate-fa ( MULTIVITAMINS) 28 mg iron- 800 mcg tab Take 1 tablet by mouth once daily. azithromycin (ZITHROMAX Z-DERREK) 250 mg tablet Take 2 tablets day one, then, 1 tablet daily until gone. nystatin-triamcinolone (MYCOLOG) ointment Apply sparingly to perineum twice daily for irritation/infection. sertraline (ZOLOFT) 50 mg tablet 1/2 pill daily X 1 week; then increase to a whole pill daily. (Patient taking differently: Take 50 mg by mouth once daily. ) triamcinolone acetonide (KENALOG) 0.1 % cream Apply 1 application to affected area twice daily. Apply to affected area. varenicline (CHANTIX STARTING MONTH BOX) 0.5 mg (11)- 1 mg (42) tablet Take 1 tablet (0.5 mg) by mouth once daily for 3 days, then 1 tablet (0.5 mg) twice daily for 4 days, then one tablet (1 mg) twice daily. (Patient not taking: Reported on 05/09/2018 ) No current facility-administered medications for this visit. Medications and allergies reviewed by this provider. SOCIAL HISTORY Social History Marital status: Single Spouse name: Years of education: Number of children: Occupational History Occupation Employer Comment Unemployed Social History Main Topics Smoking status: Current Every Day Smoker Packs/day: 0.50 Years: 2.00 Types: Cigarettes Smokeless tobacco: Never Used Alcohol use: No Drug use: No Sexual activity: Yes Partners with: Male REVIEW OF SYSTEMS All other reviewed and negative other than HPI. OBJECTIVE: BP 120/60 (BP Site: Left Arm, BP Position: Sitting, BP Cuff Size: Large Adult) Pulse 101 Temp 37.9 ?C (100.2 ?F) Resp 18 Wt (!) 138.8 kg (306 lb) SpO2 98% BMI 47.93 kg/m? . Vital signs reviewed by this provider. APPEARANCE Well appearing, alert, in no acute distress, well- hydrated, well nourished. and Morbidly obese EYES PERRLA, conjunctiva and sclera normal. EARS External ears normal, canals clear NOSE/SINUS Nares normal. Septum midline. Mucosa normal. No drainage or sinus tenderness. THROAT mild erythema and tonsillar hypertrophy, 2+ NECK Supple, no adenopathy; thyroid symmetric, normal size, no bruits HEART RRR with normal S1 and S2, no murmurs, no gallops, no JVD appreciated LUNG clear to auscultation BREAST FEMALE Right breast approximatley a quarter sized erythematous area with white head in middle- some surrounding light erythema. No drainage. TTP. No active drainage or fluctuance. ABDOMEN bowel sounds normoactive, no bruits, soft, non-tender, non-distended SKIN Skin color, texture, turgor normal. No rashes to exposed skin ASSESSMENT/PLAN: 1. Sore throat - ICD9: 462, ICD10: J02.9 (primary diagnosis) - suspect viral - no red flag symptoms -red flag symptoms discussed, verbalizes understanding - Rapid Strep negative in the office today and Throat culture pending - Discussed supportive care treatment with fluids, rest and analgesia. - The patient may also use OTC cough and cold meds as needed, warm salt water gargles, throat lozenges and/or OTC throat spray as needed and nasal saline gtts and suction prn. - Contagious dz precautions discussed- including considered contagious until on antibiotics for 24 hours - The patient should follow up in 3-5 days if symptoms persist or worsen, to ER with red flag symptoms - Call back if drooling, increased temperature, symptoms of dehydration and/or still sick in one week - THROAT CULTURE 2. Cellulitis of skin - ICD9: 682.9, ICD10: L03.90 - no red flag exam findings - red flag symptoms discussed, verbalizes understanding - warm compresses to area twice a day - Begin treatment with Trimethoprim-sulfamethozazole (Bactrim) DS PO BID - No lymphangetic streaking, this was defined for patient to watch for and to seek medical care immediately if appears - Area of cellulitis defined with pen, seek further attention if this area continues to enlarge - Follow up for recheck in two days, to ER with red flag symptoms - SULFAMETHOXAZOLE 800 MG-TRIMETHOPRIM 160 MG TABLET 3. Nausea and vomiting, intractability of vomiting not specified, unspecified vomiting type - ICD9: 787.01, ICD10: R11.2 -likely gastritis - no red flag symptoms - red flag symptoms discussed, verbalizes understanding - BRAT diet, push fluids avoid sodas - ONDANSETRON 4 MG DISINTEGRATING TABLET - follow-up if persisting, to ER with red flag symtpoms 4. Diarrhea, unspecified type - ICD9: 787.91, ICD10: R19.7 -plan as above Melisa Barrientos APRN.FLOUR TESTER Prescription instructions reviewed with patient as applicable. Patient advised if symptoms do not improve or if symptoms worsen sooner, to contact their primary care physician. Potential red flag symptoms discussed with the patient. Reviewed appropriate action plan to take if red flag symptoms occur. Patient agreeable to treatment plan. Referring Provider: SELF [[id number]] Allergies As of Date: 05/13/2018 Noted Allergy Reaction AMOXICILLIN 04/15/2018 2 - Rash DOXYCYCLINE 05/13/2018 2 - Rash PENICILLINS 11/28/2014 4 - Hives TETANUS AND DIPHTHERIA TOXOIDS, A*04/14/2017 2 - Rash Comments: Local erythema and swelling in the affected arm. Date Reviewed: 05/13/2018 Reviewed by: Irene Fontenot (Storage Facility Rental Clerk) NEAL Rodriguez - Fully Assessed Reason for Visit: Vomiting [120] Cmt: diarrhea, sore throat, cough, fever, chills, achy, found lump in rt breast this am Primary Visit Diagnosis:Sore throat [J02.9] Other Visit Diagnoses:Cellulitis of skin [L03.90] Nausea and vomiting, intractability of vomiting not specified, unspecified vomiting type [R11.2] Diarrhea, unspecified type [R19.7] Order(s):omeprazole (PRILOSEC) 20 mg capsuleTake 1 capsule by mouth once daily.Disp: 30 capsuleRfl: 3 albuterol HFA (VENTOLIN HFA) 90 mcg/actuation inhalerInhale 2 Puffs as instructed every 4 hours as needed.Disp: 1 InhalerRfl: 1 THROAT CULTURE [SQTHRCUL] Order #: [id number] sulfamethoxazole-trimethoprim (BACTRIM DS) 800-160 mg per tabletTake 1 tablet by mouth twice daily for 10 days.Disp: 20 tabletRfl: 0 ondansetron orally disintegrating (ZOFRAN ODT) 4 mg disintegrating tabletTake 1 tablet by mouth every 8 hours as needed for Nausea/Vomiting.Disp: 30 tabletRfl: 0 Prescriptions as of 05/13/2018 Sig: ALBUTEROL SULFATE HFA 90 MCG/* Inhale 2 Puffs as instructed * BENZONATATE 100 MG CAPSULE Take 1 capsule by mouth three* OMEPRAZOLE 20 MG CAPSULE,VANCE* Take 1 capsule by mouth once * VIT NO.95-FERROUS FU* Take 1 tablet by mouth once d* NYSTATIN-TRIAMCINOLONE 100,00* Apply sparingly to perineum t* ONDANSETRON 4 MG DISINTEGRATI* Take 1 tablet by mouth every * SERTRALINE 50 MG TABLET 1/2 pill daily X 1 week; then* Patient taking differently: Take 50 mg by mouth once corinna* SULFAMETHOXAZOLE 800 MG-TRIME* Take 1 tablet by mouth twice * TRIAMCINOLONE ACETONIDE 0.1 %* Apply 1 application to affect* VARENICLINE 0.5 MG (11)-1 MG * Take 1 tablet (0.5 mg) by liat* Patient not taking: Reported on 05/09/2018 Problem List As Of Date 05/13/2018 Noted Resolved Heart valve stenosis [I38] INVALID FOR* Obesity, Class III, BMI 40-49.9 (morbid obesity*INVALID FOR* Hyperinsulinemia [E16.1] INVALID FOR* Adjustment disorder with mixed anxiety and depr*INVALID FOR* More... Seasonal allergic rhinitis due to pollen [J30.1]INVALID FOR* Morbid obesity (HCC) [E66.01] Asthma [J45.909] More... Aortic stenosis [I35.0] More... PCOS (polycystic ovarian syndrome) [E28.2] More... Pre-op testing [Z01.818] INVALID FOR* More... Discharge planning issues [Z02.9] INVALID FOR* More... On mechanically assisted ventilation (HCC) [Z99*INVALID FOR*06/18/2017 More... Acute post-operative pain [G89.18] INVALID FOR* More... Atelectasis [J98.11] INVALID FOR* More... Hypovolemia [E86.1] INVALID FOR*06/18/2017 More... Essential hypertension [I10] INVALID FOR* More... Transition of care performed with sharing of cl*INVALID FOR* More... Nicotine use disorder, F17.2 [F17.200] INVALID FOR* QUINTON (obstructive sleep apnea) [G47.33] INVALID FOR* Prescriptions ordered this encounter Disp Refills Start End OMEPRAZOLE 20 MG CAPSULE,DELAYED REL* 30 c* 3 05/13/2018 Route: ORAL Sig: Take 1 capsule by mouth once daily. ALBUTEROL SULFATE HFA 90 MCG/ACTUATI* 1 In* 1 05/13/2018 Route: INHALATION Sig: Inhale 2 Puffs as instructed every 4 hours as needed. SULFAMETHOXAZOLE 800 MG-TRIMETHOPRIM* 20 t* 0 05/13/2018 05/23/2018 Cmt: Ok to give generic equivalent Route: ORAL Sig: Take 1 tablet by mouth twice daily for 10 days. ONDANSETRON 4 MG DISINTEGRATING TABL* 30 t* 0 05/13/2018 Route: ORAL Sig: Take 1 tablet by mouth every 8 hours as needed for Nausea/Vomiting. Medications Discontinued During This Encounter doxycycline monohydrate (MONODOX) 10* 20 c* 0 05/09/2018 05/13/2018 Route: ORAL Sig: Take 1 capsule by mouth twice daily. Disc: Side Effects azithromycin (ZITHROMAX Z-DERREK) 250 m* 1 Pa* 0 05/11/2018 05/13/2018 Sig: Take 2 tablets day one, then, 1 tablet daily until gone. Disc: Course of therapy completed omeprazole (PRILOSEC) 20 mg capsule 30 c* 3 03/04/2018 05/13/2018 Route: ORAL Sig: Take 1 capsule by mouth once daily. Disc: Reason for discontinue is not on file. albuterol HFA (VENTOLIN HFA) 90 mcg/* 1 In* 1 03/04/2018 05/13/2018 Route: INHALATION Sig: Inhale 2 Puffs as instructed every 4 hours as needed. Disc: Reason for discontinue is not on file. Letter Text Department of Family Medicine [address] [address] 05/13/2018 Keily Rasmussen CC# [id number] [address] [facility] [address] [place] [address] TO WHOM IT MAY CONCERN: This is to certify that Ms. Keily Rasmussen has been under my care for illness and was unable to work 05/13/2018. Sincerely yours, Melisa Barrientos APRN.CNP Encounter Status:Closed by MELISA BARRIENTOS CNP on 05/13/18 CBC AND DIFFERENTIAL Collected: 05/09/2018 Status: F Source: [place] 11:28 AM [facility] REPOSITORY TYPE CODE TESTS RESULT OUT OF REFERENCE UNITS RANGE LAB WBC 3.70-11.00 k/uL WBC 10.56 LAB RBC 3.90-5.20 m/uL RBC High 5.47 LAB HGB 11.5-15.5 g/dL Hemoglobin 14.2 LAB HCT 36.0-46.0 % Hematocrit 44.4 LAB MCV 80.0-100.0 fL MCV 81.2 LAB MCH 26.0-34.0 pG MCH 26.0 LAB MCHC 30.5-36.0 g/dL MCHC 32.0 LAB RDWCV 11.5-15.0 % RDW-CV 14.8 LAB PLTCT 150-400 k/uL Platelet Count 356 LAB MPV 9.0-12.7 fL MPV 10.0 LAB ANEUT % Neut% 53.6 LAB AANEUT 1.45-7.50 k/uL Abs Neut 5.66 LAB ALYMP % Lymph% 30.5 LAB AALYMP 1.00-4.00 k/uL Abs Lymph 3.22 LAB AMONO % [place]% 9.1 LAB AAMONO <0.87 k/uL Abs [place] High 0.96 LAB AEOS % Eosin% 5.6 LAB AAEOS <0.46 k/uL Abs High Eosin 0.59 LAB ABASO % Baso% 1.2 LAB AABASO <0.11 k/uL Abs Baso High 0.13 LAB AUNRBC 0 /100 WBC NRBCs 0.0 LAB ABNRBC <0.01 k/uL Absolute nRBC <0.01 LAB DTYP DTYPE Auto Diff Performed By: #### CBCDIF, CMP, LIPA #### [facility] [address] [place] [id number] COMP METABOLIC PANEL Collected: 05/09/2018 Status: F Source: [place] 11:[address] [facility] REPOSITORY TYPE CODE TESTS RESULT OUT OF REFERENCE UNITS RANGE LAB TP 6.3-8.0 g/dL Protein, Total 7.6 LAB ALB 3.9-4.9 g/dL Low Albumin 3.8 LAB CA 8.5-10.2 mg/dL Calcium, Total 9.8 LAB TBIL 0.2-1.3 mg/dL Low Bilirubin, Total <0.2 LAB ALKP 34-123 U/L Alkaline Phosphatase 101 LAB AST 13-35 U/L AST 24 LAB GLU 74-99 mg/dL Glucose 80 Result Comment: The [place] [employer] (ADA) provides guidance for cutoff values for fasting glucose and random glucose. The ADA defines fasting as no caloric intake for at least 8 hours. Fas ting plasma glucose results between 100 to 125 mg/dL indicate increased risk for diabetes (prediabetes). Fasting plasma glucose results greater than or equal to 126 mg/dL meet the criteria for diagnosis of diabetes. In the absence of unequivocal hyperglycemia, results should be confirmed by repeat testing. In a patient with classic symptoms of hyperglycemia or hyperglycemic crisis, random plasma glucose results greater than or equal to 200 mg/dL meet the criteria for diagnosis of diabetes. Reference: Standards of Medical Care in Diabetes 2016, [place] [employer]. Diabetes Care. 2016.39(Suppl 1). LAB BUN 7-21 mg/dL BUN 9 LAB CRET 0.58-0.96 mg/dL Creatinine Low 0.51 LAB NA 136-144 mmol/L Sodium Low 135 LAB K 3.7-5.1 mmol/L Potassium 4.7 LAB CL 97-105 mmol/L Chloride 102 LAB CO2 22-30 mmol/L CO2 23 LAB AGAP 9-18 mmol/L Anion Gap 10 LAB ALT 7-38 U/L ALT 15 LAB GFRAA eGFR- Amer. >60 LAB GFRNAA . eGFR-All Other Races >60 Result Comment: eGFR (Estimated GFR) Units of measure: mL/min/1.73 meters squared eGFR is derived from the reexpressed MDRD Study equation using the following parameters: serum creatinine, age, gender and race. The creatinine assay has been calibrated to be traceable to IDMS. An eGFR <60 mL/min/1.73m2 for >3 months is consistent with chronic kidney disease. Refer to KDOQI guidelines for clinical interpretation. In patients with unstable renal function, e.g. those with acute kidney injury, the eGFR may not accurately reflect actual GFR. Performed By: #### CBCDIF, CMP, LIPA #### [facility] [address] [place], [place] [address] LIPASE Collected: 05/09/2018 Status: F Source: [place] 11:28 AM [facility] REPOSITORY TYPE CODE TESTS RESULT OUT OF REFERENCE UNITS RANGE LAB LIPA 16-61 U/L Lipase 17 Performed By: #### CBCDIF, CMP, LIPA #### [facility] [address] [place], [place] [address] CNOV Observed: 05/09/2018 Status: COMPLETED Source: [place] 11:20 AM [facility] REPOSITORY Office Visit ([facility]) KEILY RASMUSSEN ([id number]) 1995 F Date Time Provider Department 05/09/18 11:20 AM [facility] During your visit today, we recorded the following information about you: Temperature Pulse Blood pressure Weight 98.4 degrees 79/minute 122/72 137.9 kg Katja Pollack LPN 05/09/2018 10:47 AM Signed Patient presents today complaining of increased cough. Duration: 3 days. Cough is productive:YES. Fever: :does feel like it but hasn't checked. Shortness of breath:YES. Sore throat :No. Ear Pain :Some. Chest Pain :yes Previous treatments tried: mucinex. The past 2 weeks hasn't been feeling well and went to ER twice. Runny nose, cough, cold symptoms started the past 3 days. Went to [facility] ER the past 2 . Krishna Linda MD 05/09/2018 11:15 AM Signed Patient presents with: Cough HPI: Patient presents today for office visit for acute visit. Nursing Notes: Katja Pollack LPN 05/09/2018 10:47 AM Signed Patient presents today complaining of increased cough. Duration: 3 days. Cough is productive:YES. Fever: :does feel like it but hasn't checked. Shortness of breath:YES. Sore throat :No. Ear Pain :Some. Chest Pain :yes Previous treatments tried: mucinex. The past 2 weeks hasn't been feeling well and went to ER twice. Runny nose, cough, cold symptoms started the past 3 days. Went to [facility] ER the past 2 . Reviewed er records. ekg showed lbbb which is old. Chest xray and labs negative. She was given gi cocktail for one of them with some improvement. Has had some sniffling and coughing for close to three weeks. Cough is productive of green and brown drainage. Comes in goes. Chest is sore to press on it. Has an appointment to see Dr. Haider for re evaluation. Has heartburn occasionally. She feels the chest pain was not helped by the gi cocktail. Does have some headache in the frontal area as well. Has mild epigastric pain. No black stools. Did have one bloody stool several days ago. None since. MEDICATIONS: Current Outpatient Prescriptions: albuterol HFA (VENTOLIN HFA) 90 mcg/actuation inhaler Inhale 2 Puffs as instructed every 4 hours as needed. omeprazole (PRILOSEC) 20 mg capsule Take 1 capsule by mouth once daily. vit-iron fumarate-fa ( MULTIVITAMINS) 28 mg iron- 800 mcg tab Take 1 tablet by mouth once daily. sertraline (ZOLOFT) 50 mg tablet 1/2 pill daily X 1 week; then increase to a whole pill daily. (Patient taking differently: Take 50 mg by mouth once daily. ) nystatin-triamcinolone (MYCOLOG) ointment Apply sparingly to perineum twice daily for irritation/infection. triamcinolone acetonide (KENALOG) 0.1 % cream Apply 1 application to affected area twice daily. Apply to affected area. varenicline (CHANTIX STARTING MONTH BOX) 0.5 mg (11)- 1 mg (42) tablet Take 1 tablet (0.5 mg) by mouth once daily for 3 days, then 1 tablet (0.5 mg) twice daily for 4 days, then one tablet (1 mg) twice daily. (Patient not taking: Reported on 05/09/2018 ) No current facility-administered medications for this visit. ALLERGIES: ALLERGIES Allergen Reactions - Amoxicillin Rash - Penicillins Hives - Tetanus And Diphthe* Rash Local erythema and swelling in the affected arm. PAST MEDICAL HISTORY Diagnosis Date - Aortic stenosis s/p repair of a PDA and subvalvular aortic stenosis. Sees Dr. Haider and Dr. Cremer - Asthma - Morbid obesity (HCC) - PCOS (polycystic ovarian syndrome) elevated testosterone and elevated insulin - PDA (patent ductus arteriosus) s/p repair age 10 - Tobacco use PAST SURGICAL HISTORY Procedure Laterality Date - PAST SURGICAL HISTORY OF 2005 Repair of a PDA and subvalvular aortic stenosis-childhood - PAST SURGICAL HISTORY OF resection subaortic membrane May 2017 FAMILY HISTORY Problem Relation Age of Onset - COPD Mother - Thyroid Mother - Asthma Mother - Diabetes Father - Heart Father [place] - other (Bone Disease) Brother - COPD Sister - Diabetes Brother - Hypertension Maternal Grandmother - COPD Maternal Grandmother - Emphysema Maternal Grandmother - Heart Maternal Grandfather - Hypertension Maternal Grandfather - Cancer Paternal Uncle Social History Marital status: Single Spouse name: Years of education: Number of children: Occupational History Occupation Employer Comment Unemployed Social History Main Topics Smoking status: Current Every Day Smoker Packs/day: 0.50 Years: 2.00 Types: Cigarettes Smokeless tobacco: Never Used Alcohol use: No Drug use: No Sexual activity: Yes Partners with: Male Reviewed current medications, allergies, past medical history, surgical history, family history and social history today. REVIEW OF SYSTEMS GI: Positive for diarrhea since yesterday. All other reviewed and negative other than HPI. HEALTH MAINTENANCE: Reviewed health maintenance issues today and recommended the following in detail. VITALS: BP 122/72 Pulse 79 Temp 36.9 ?C (98.4 ?F) (Tympanic) Wt (!) 137.9 kg (304 lb) SpO2 95% BMI 47.61 kg/m? Last 4 Encounter Wt Readings: Date: Wt: 05/09/2018 137.9 kg (304 lb) 04/15/2018 137 kg (302 lb 1.3 oz) 04/01/2018 134.7 kg (297 lb) 03/10/2018 138.8 kg (306 lb) PHYSICAL EXAMINATION: General appearance: Well appearing, alert, in no acute distress, well-hydrated, well nourished. Skin: Skin color, texture, turgor normal, no suspicious rashes or lesions Head: Normocephalic, no masses, lesions, tenderness or abnormalities Eyes: Anicteric sclera. Pupils are equally round and reactive to light. Extraocular movements are intact. Ears: External ears normal, canals clear Nose/Sinuses: Nares normal, septum midline, mucosa normal, no drainage or sinus tenderness Oropharynx: Lips, mucosa, and tongue normal, teeth and gums normal, oropharynx normal Neck: supple, no lymphadenopathy Lungs: lungs clear to auscultation. No wheezing, rhonchi, rales Heart: RRR without murmur, gallop, or rubs. No ectopy Abdomen: Normal abdominal exam, Abdomen soft, non-tender. Bowel sounds normal. No masses, organomegaly Extremities: No deformities, edema, skin discoloration, clubbing or cyanosis. Good capillary refill. Musculoskeletal: No joint swelling, deformity, or tenderness Chest wall is tender to palpation. ASSESSMENT/PLAN: 1. Bronchitis - ICD9: 490, ICD10: J40 (primary diagnosis) - Red flags for re-assessment reviewed with patient in detail. Discussed risks and benefits of new medication with the patient. Advised them to call if any side effects or questions. - BENZONATATE 100 MG CAPSULE - DOXYCYCLINE MONOHYDRATE 100 MG CAPSULE 2. Blood in stool - ICD9: 578.1, ICD10: K92.1 - call if recurs. - FECAL OCCULT BLOOD TEST 3. Epigastric discomfort - ICD9: 789.06, ICD10: R10.13 - call if any issues. - CBC + DIFF - COMP METABOLIC PANEL - LIPASE BLD 4. Aortic valve stenosis, etiology of cardiac valve disease unspecified - ICD9: 424.1, ICD10: I35.0 - see cardiology 5. Chest wall tenderness - ICD9: 786.52, ICD10: R07.89 - tylenol and advil prn. Call if symptoms worsen at all or if not better in one to two weeks Krishna Linda MD Referring Provider: SELF [[id number]] Allergies As of Date: 05/09/2018 Noted Allergy Reaction AMOXICILLIN 04/15/2018 2 - Rash PENICILLINS 11/28/2014 4 - Hives TETANUS AND DIPHTHERIA TOXOIDS, A*04/14/2017 2 - Rash Comments: Local erythema and swelling in the affected arm. Date Reviewed: 05/09/2018 Reviewed by: Katja Pollack LPN - Fully Assessed Reason for Visit: Cough [28] Primary Visit Diagnosis:Bronchitis [J40] Other Visit Diagnoses:Blood in stool [K92.1] Epigastric discomfort [R10.13] Aortic valve stenosis, etiology of cardiac valve disease unspecified [I35.0] Chest wall tenderness [R07.89] Order(s):CBC + DIFF [SQCBCDIF] Order #: [id number] FUTURE COMP METABOLIC PANEL [SQCMP] Order #: [id number] FUTURE LIPASE BLD [SQLIPA] Order #: [id number] FUTURE benzonatate (TESSALON PERLE) 100 mg capsuleTake 1 capsule by mouth three times daily as needed.Disp: 30 capsuleRfl: 0 doxycycline monohydrate (MONODOX) 100 mg capsuleTake 1 capsule by mouth twice daily.Disp: 20 capsuleRfl: 0 FECAL OCCULT BLOOD TEST [SQIFOBT] Order #: [id number] FUTURE Prescriptions as of 05/09/2018 Sig: ALBUTEROL SULFATE HFA 90 MCG/* Inhale 2 Puffs as instructed * OMEPRAZOLE 20 MG CAPSULE,VANCE* Take 1 capsule by mouth once * VIT NO.95-FERROUS FU* Take 1 tablet by mouth once d* SERTRALINE 50 MG TABLET 1/2 pill daily X 1 week; then* Patient taking differently: Take 50 mg by mouth once corinna* BENZONATATE 100 MG CAPSULE Take 1 capsule by mouth three* DOXYCYCLINE MONOHYDRATE 100 M* Take 1 capsule by mouth twice* NYSTATIN-TRIAMCINOLONE 100,00* Apply sparingly to perineum t* TRIAMCINOLONE ACETONIDE 0.1 %* Apply 1 application to affect* VARENICLINE 0.5 MG (11)-1 MG * Take 1 tablet (0.5 mg) by liat* Patient not taking: Reported on 05/09/2018 Problem List As Of Date 05/09/2018 Noted Resolved Heart valve stenosis [I38] INVALID FOR* Obesity, Class III, BMI 40-49.9 (morbid obesity*INVALID FOR* Hyperinsulinemia [E16.1] INVALID FOR* Adjustment disorder with mixed anxiety and depr*INVALID FOR* More... Seasonal allergic rhinitis due to pollen [J30.1]INVALID FOR* Morbid obesity (HCC) [E66.01] Asthma [J45.909] More... Aortic stenosis [I35.0] More... PCOS (polycystic ovarian syndrome) [E28.2] More... Pre-op testing [Z01.818] INVALID FOR* More... Discharge planning issues [Z02.9] INVALID FOR* More... On mechanically assisted ventilation (HCC) [Z99*INVALID FOR*06/18/2017 More... Acute post-operative pain [G89.18] INVALID FOR* More... Atelectasis [J98.11] INVALID FOR* More... Hypovolemia [E86.1] INVALID FOR*06/18/2017 More... Essential hypertension [I10] INVALID FOR* More... Transition of care performed with sharing of cl*INVALID FOR* More... Nicotine use disorder, F17.2 [F17.200] INVALID FOR* QUINTON (obstructive sleep apnea) [G47.33] INVALID FOR* Visit Notes: >> Katja Pollack LPN Sat May 09, 2018 10:41 AM Status: Signed Patient presents today complaining of increased cough. Duration: 3 days. Cough is productive:YES. Fever: :does feel like it but hasn't checked. Shortness of breath:YES. Sore throat :No. Ear Pain :Some. Chest Pain :yes Previous treatments tried: mucinex. The past 2 weeks hasn't been feeling well and went to ER twice. Runny nose, cough, cold symptoms started the past 3 days. Went to [facility] ER the past 2 . Prescriptions ordered this encounter Disp Refills Start End BENZONATATE 100 MG CAPSULE 30 c* 0 05/09/2018 Route: ORAL Sig: Take 1 capsule by mouth three times daily as needed. DOXYCYCLINE MONOHYDRATE 100 MG CAPSU* 20 c* 0 05/09/2018 Route: ORAL Sig: Take 1 capsule by mouth twice daily. Disposition: Return if symptoms worsen or fail to improve. Follow-up and Disposition History Recorded Encounter Status:Closed by KRISHNA LINDA MD on 05/09/18 PROGRESS Observed: 05/09/2018 Status: COMPLETED Source: [place] 10:54 AM [facility] [place] REPOSITORY O ID: [id number] Author: Krishna Linda Service: (none) Author Type: Physician Type: Progress Notes Filed: 05/09/2018 11:15 AM Note Text: Patient presents with: Cough HPI: Patient presents today for office visit for acute visit. Nursing Notes: Katja Pollack LPN 05/09/2018 10:47 AM Signed Patient presents today complaining of increased cough. Duration: 3 days. Cough is productive:YES. Fever: :does feel like it but hasn't checked. Shortness of breath:YES. Sore throat :No. Ear Pain :Some. Chest Pain :yes Previous treatments tried: mucinex. The past 2 weeks hasn't been feeling well and went to ER twice. Runny nose, cough, cold symptoms started the past 3 days. Went to [facility] ER the past 2 . Reviewed er records. ekg showed lbbb which is old. Chest xray and labs negative. She was given gi cocktail for one of them with some improvement. Has had some sniffling and coughing for close to three weeks. Cough is productive of green and brown drainage. Comes in goes. Chest is sore to press on it. Has an appointment to see Dr. Haider for re evaluation. Has heartburn occasionally. She feels the chest pain was not helped by the gi cocktail. Does have some headache in the frontal area as well. Has mild epigastric pain. No black stools. Did have one bloody stool several days ago. None since. MEDICATIONS: Current Outpatient Prescriptions: albuterol HFA (VENTOLIN HFA) 90 mcg/actuation inhaler Inhale 2 Puffs as instructed every 4 hours as needed. omeprazole (PRILOSEC) 20 mg capsule Take 1 capsule by mouth once daily. vit-iron fumarate-fa ( MULTIVITAMINS) 28 mg iron- 800 mcg tab Take 1 tablet by mouth once daily. sertraline (ZOLOFT) 50 mg tablet 1/2 pill daily X 1 week; then increase to a whole pill daily. (Patient taking differently: Take 50 mg by mouth once daily. ) nystatin-triamcinolone (MYCOLOG) ointment Apply sparingly to perineum twice daily for irritation/infection. triamcinolone acetonide (KENALOG) 0.1 % cream Apply 1 application to affected area twice daily. Apply to affected area. varenicline (CHANTIX STARTING MONTH BOX) 0.5 mg (11)- 1 mg (42) tablet Take 1 tablet (0.5 mg) by mouth once daily for 3 days, then 1 tablet (0.5 mg) twice daily for 4 days, then one tablet (1 mg) twice daily. (Patient not taking: Reported on 05/09/2018 ) No current facility-administered medications for this visit. ALLERGIES: ALLERGIES Allergen Reactions - Amoxicillin Rash - Penicillins Hives - Tetanus And Diphthe* Rash Local erythema and swelling in the affected arm. PAST MEDICAL HISTORY Diagnosis Date - Aortic stenosis s/p repair of a PDA and subvalvular aortic stenosis. Sees Dr. Haider and Dr. Marie - Asthma - Morbid obesity (HCC) - PCOS (polycystic ovarian syndrome) elevated testosterone and elevated insulin - PDA (patent ductus arteriosus) s/p repair age 10 - Tobacco use PAST SURGICAL HISTORY Procedure Laterality Date - PAST SURGICAL HISTORY OF 2005 Repair of a PDA and subvalvular aortic stenosis-childhood - PAST SURGICAL HISTORY OF resection subaortic membrane May 2017 FAMILY HISTORY Problem Relation Age of Onset - COPD Mother - Thyroid Mother - Asthma Mother - Diabetes Father - Heart Father [place] - other (Bone Disease) Brother - COPD Sister - Diabetes Brother - Hypertension Maternal Grandmother - COPD Maternal Grandmother - Emphysema Maternal Grandmother - Heart Maternal Grandfather - Hypertension Maternal Grandfather - Cancer Paternal Uncle Social History Marital status: Single Spouse name: Years of education: Number of children: Occupational History Occupation Employer Comment Unemployed Social History Main Topics Smoking status: Current Every Day Smoker Packs/day: 0.50 Years: 2.00 Types: Cigarettes Smokeless tobacco: Never Used Alcohol use: No Drug use: No Sexual activity: Yes Partners with: Male Reviewed current medications, allergies, past medical history, surgical history, family history and social history today. REVIEW OF SYSTEMS GI: Positive for diarrhea since yesterday. All other reviewed and negative other than HPI. HEALTH MAINTENANCE: Reviewed health maintenance issues today and recommended the following in detail. VITALS: BP 122/72 Pulse 79 Temp 36.9 ?C (98.4 ?F) (Tympanic) Wt (!) 137.9 kg (304 lb) SpO2 95% BMI 47.61 kg/m? Last 4 Encounter Wt Readings: Date: Wt: 05/09/2018 137.9 kg (304 lb) 04/15/2018 137 kg (302 lb 1.3 oz) 04/01/2018 134.7 kg (297 lb) 03/10/2018 138.8 kg (306 lb) PHYSICAL EXAMINATION: General appearance: Well appearing, alert, in no acute distress, well-hydrated, well nourished. Skin: Skin color, texture, turgor normal, no suspicious rashes or lesions Head: Normocephalic, no masses, lesions, tenderness or abnormalities Eyes: Anicteric sclera. Pupils are equally round and reactive to light. Extraocular movements are intact. Ears: External ears normal, canals clear Nose/Sinuses: Nares normal, septum midline, mucosa normal, no drainage or sinus tenderness Oropharynx: Lips, mucosa, and tongue normal, teeth and gums normal, oropharynx normal Neck: supple, no lymphadenopathy Lungs: lungs clear to auscultation. No wheezing, rhonchi, rales Heart: RRR without murmur, gallop, or rubs. No ectopy Abdomen: Normal abdominal exam, Abdomen soft, non-tender. Bowel sounds normal. No masses, organomegaly Extremities: No deformities, edema, skin discoloration, clubbing or cyanosis. Good capillary refill. Musculoskeletal: No joint swelling, deformity, or tenderness Chest wall is tender to palpation. ASSESSMENT/PLAN: 1. Bronchitis - ICD9: 490, ICD10: J40 (primary diagnosis) - Red flags for re-assessment reviewed with patient in detail. Discussed risks and benefits of new medication with the patient. Advised them to call if any side effects or questions. - BENZONATATE 100 MG CAPSULE - DOXYCYCLINE MONOHYDRATE 100 MG CAPSULE 2. Blood in stool - ICD9: 578.1, ICD10: K92.1 - call if recurs. - FECAL OCCULT BLOOD TEST 3. Epigastric discomfort - ICD9: 789.06, ICD10: R10.13 - call if any issues. - CBC + DIFF - COMP METABOLIC PANEL - LIPASE BLD 4. Aortic valve stenosis, etiology of cardiac valve disease unspecified - ICD9: 424.1, ICD10: I35.0 - see cardiology 5. Chest wall tenderness - ICD9: 786.52, ICD10: R07.89 - tylenol and advil prn. Call if symptoms worsen at all or if not better in one to two weeks Krishna Linda MD 12 LEAD ELECTROCARDIOGRAM Observed: 05/08/2018 Status: F Source: [place] 11:56 AM [facility] REPOSITORY [facility] Cardiovascular Services [address] [place] [address] 12 Lead EKG 05/07/18 1347 MR#: [id number] Acct: [id number] Name: KEILY RASMUSSEN Rep #: [id number] : 1995 22 From: Kalyan Thomas MD Attending Dr: Status: DEP ER Ordering Dr: Misael Valle DO Date: 05/07/18 Location: ED Sex: F C Admitted: Test Reason : Blood Pressure : / mmHG Vent. Rate : 080 BPM Atrial Rate : 080 BPM P-R Int : 140 ms QRS Dur : 138 ms QT Int : 420 ms P-R-T Axes : 024 016 112 degrees QTc Int : 484 ms Normal sinus rhythm Left bundle branch block Abnormal ECG Confirmed by KALYAN THOMAS MD ([id number]), food editor MERVIN RODRIGUEZ ([id number]) on 05/08/2018 11:56:31 AM Referred By: OSCAR Confirmed By:KALYAN THOMAS MD 05/08/18 1156 Date Kalyan Thomas MD CC: Ken Barnes MD; Misael Valle DO Signed EMERGENCY DEPARTMENT Observed: 05/07/2018 Status: F Source: [place] SUMMARY 3:26 PM [facility] REPOSITORY [facility] Medical Records Department [address] [place] [address] Emergency Department Summary 05/07/18 1517 MR#: [id number] Acct: [id number] Name: KEILY RASMUSSEN Rep #: [id number] : 1995 22 From: Misael Valle DO PCP: Ken Barnes MD Status: REG ER - ER Visit Summary Date of Service: 05/07/18 Chief Complaint: Chest pain History of Present Illness: The patient is a 22 F who presents with chest pain that has been constant for the past 2 days. Patient describes the pain is stabbing and tightness. Patient states the pain is across her entire chest. Patient states nothing makes it better or worse. Patient admits to some nausea but denies any vomiting. Patient admits to some shortness of breath. Patient also admits to a cough and some lightheadedness. Patient also admits to some reflux symptoms. Physical Examination: Vital signs are stable. Patient is afebrile. Patient is in no acute distress. Oral mucosa is pink and moist. Neck is supple. Trachea is midline. There is no JVD noted. Heart was regular rate and rhythm. Lungs showed mild expiratory wheezes. Abdomen is soft. Bowel sounds are normal. There is no tenderness. Cranial nerves II through XII are intact. There are no focal motor or sensory deficits noted. The remaining physical exam is within normal limits. Test Results: EKG showed normal sinus rhythm with a rate of 80. There is a left bundle branch block pattern noted. This was unchanged compared to previous EKG dated 04/30/2018. Chest x-ray does not show any acute cardiopulmonary process. CBC basic metabolic profile and troponin were obtained and were all within normal limits. Emergency Department Course and Treatment: Patient was given aspirin here. Patient was given albuterol aerosol. Patient was instructed her chest pain is unlikely to be cardiac in etiology. Patient has a LONI score of 0. Patient has a HEART score of 1. Patient was advised that this is low risk for acute cardiac event. Patient was instructed to follow-up with her primary care physician in 5-7 days. Patient understood and was agreeable with the plan. All questions were answered. Disposition: Discharge home Impression: Chest pain of uncertain etiology This note was generated with [employer]ver[employer] dictation software. It may contain incorrect words, spelling, and punctuation that were not noted in review of the chart prior to signing ED Disposition - Plan for ED Patient: Disposition: Home or Assisted Living Chief Complaint: Chest Pain Diagnosis: Chest pain of uncertain etiology Instructions: ED Chest Pain Atypical Unkn Cause Referrals: Ken Barnes MD [Primary Care Provider] - What to do if you have Problems For any increased pain, shortness of breath, bleeding, nausea or vomiting, chest pain, or any unexpected problems, contact your Primary Care Provider. Call [facility] ([phone]) or report to the closest Emergency Room. Call 911 if necessary. 05/07/18 1526 <Electronically signed by Misael Valle DO> Date Misael Valle DO Cosigner Signature (If Indicated): Date CC: Ken Barnes MD CBC W/DIFF, AUTOMATED Collected: 05/07/2018 Status: C Source: [place] 2:36 PM [facility] REPOSITORY TYPE CODE TESTS RESULT OUT OF RANGE REFERENCE UNITS LAB L100.1000 4.4-11.0 K/mm3 High WBC 11.9 LAB L100.1200 4.2-5.4 M/mm3 Normal RBC 5.10 LAB L100.1300 12.0-15.0 g/dl Normal HGB 13.1 LAB L100.1400 37-47 % Normal HCT 40.4 LAB L100.1500 81-99 fL Low MCV 79.2 LAB L100.1600 27.0-32.0 pg Low MCH 25.7 LAB L100.1700 32-36 g/gl Normal MCHC 32.4 LAB L100.1810 11.6-14.6 % High RDW CV 15.0 LAB L100.1820 35.1-43.9 fl Normal RDW SD 43.4 LAB L100.1900 150-450 K/mm3 Normal PLT 280 LAB L100.2000 6.2-12.0 fl Normal MPV 9.5 LAB L100.2100 47-70 % Normal NEUT% 60.5 LAB L100.2200 19-41 % Normal LY% 25.7 LAB L100.2300 0-10 % Normal MONO% 7.6 LAB L100.2400 0-5 % High EO% 5.4 LAB L100.2500 0-1 % Normal BASO% 0.6 LAB L100.2550 0.0-0.9 % Normal IM GRAN % 0.200 Result Comment: IG% - Immature Granulocytes (promyelocytes, myelocytes and metamyelocytes) > 1% indicates that a LEFT SHIFT is Present. LAB L100.2620 2.0-7.7 X10 3/uL Normal Absolute Neut 7.2 LAB L100.2720 0.83-4.51 X10 3/ul Normal Absolute Lymph 3.06 LAB L100.9900 Normal PATH REV Reviewed Result Comment: Leukocytosis. Microcytosis. Clinical correlation necessary. Momo Alcantara M.D. 05/11/18 AMENDED REPORT 05/11/18 1353 PATH REV previously reported as: September Performed By: #### L100.0100 #### [facility] [address] [facility] [address] [place], [place], [id number] BASIC METABOLIC Collected: 05/07/2018 Status: F Source: [place] PROFILE (BMP) 2:36 PM [facility] REPOSITORY TYPE CODE TESTS RESULT OUT OF RANGE REFERENCE UNITS LAB L501.0100 74-106 mg/dL Normal GLU 81 Result Comment: Please note revised GLUCOSE reference range effective 2017. LAB L501.1000 7-18 mg/dL Normal BUN 13 LAB L501.1100 0.55-1.02 mg/dL Low CREAT,SERUM 0.44 Result Comment: The validity of the calculated GFR AND GFRAA in patients over 70 years has not been determined. Clinical correlation is essential. LAB L501.1110 >60 mL/min Normal EST GFR 190 Result Comment: Non- GFR Calc LAB L501.1115 >60 mL/min Normal EST GFR - AA 229 Result Comment: GFR Calc LAB L501.1255 ml/min Normal Estimated CRCL 198.33 LAB L501.1300 10-20 RATIO High BUN/CRE 29.2 LAB L501.2200 8.5-10 mg/dL .1 CA Normal 8.9 LAB L501.5300 136-14 mmol/L 5 NA Normal 137 LAB L501.5600 3.5-5. mmol/L 1 K Normal 4.1 LAB L501.5900 98-107 mmol/L CL Normal 105 LAB L501.6100 21.0-3 mmol/L 2.0 CO2 Normal 27.0 LAB L501.6200 5-15 GAP Normal 5 Performed By: #### L500.2500, L501.4010 #### [facility] [address] [place], [place], [address] TROPONIN-I Collected: 05/07/2018 Status: F Source: [place] 2:36 PM [facility] REPOSITORY TYPE CODE TESTS RESULT OUT OF RANGE REFERENCE UNITS LAB L501.4010 <0.045 ng/mL Normal < 0.015 TROPONIN-I Result Comment: TROPONIN-I EXPECTED VALUES <0.045 Negative 0.045 - 0.590 Consistent with Cardiac Damage > OR = 0.600 Critical Value Not every elevated troponin is indicative of CO. These values should be used with clinical judgement in examining the patient's clinical picture for diagnosis. To establish a diagnosis of CO versus myocardial injury, there must be a demonstrated rise and/or fall in the troponin values, in addition to ischemic symptoms, EKG changes, new regional wall motion abnormality, and/or angiographical evidence. PLEASE NOTE: REFERENCE RANGES EDITED 17 Performed By: #### L500.2500, L501.4010 #### [facility] [address] [place], [address] CHEST PA AND LATERAL Observed: 05/07/2018 Status: F Source: [place] 2:02 PM [facility] REPOSITORY [facility] Imaging Services [address] [facility] [place] [address] Chest PA and Lateral MR#: [id number] Acct: [id number] Name: KEILY RASMUSSEN Rep #: [id number] : 1995 F 22 From: Seng Luna MD PCP: Ken Barnes MD Status: REG ER Study: Chest PA and Lateral Date of Exam: 05/07/18 Exam# [id number] Ordering Dr: Msiael Valle DO STUDY: X-RAY CHEST REASON FOR EXAM: Female, 22 years old. 2 day history of chest pain. TECHNIQUE: PA and lateral views of the chest. COMPARISON: Comparison is made with prior study dated April 30, 2018. FINDINGS: The lungs are clear and expanded. There is no demonstrated pleural abnormality. Sternal cerclage wires are present from a prior sternotomy. Normal mediastinum and gerald. Normal visualized pulmonary arteries. Normal visualized aortic arch and descending thoracic aorta. Normal visualized thoracic spine. Normal visualized ribs, clavicles, and shoulders. There is no demonstrated abnormality of the visualized soft tissue structures of the upper abdomen. RAD/Chest PA and Lateral IMPRESSION: The patient is status post midline sternotomy. No acute abnormality is seen. Electronically Signed: Seng Luna MD at 15:07 EST Tel [phone], Service support , CC: Ken Barnes MD; Misael Valle DO Bridge Tender: Signed 12 LEAD ELECTROCARDIOGRAM Observed: 05/04/2018 Status: F Source: [place] 2:29 PM [facility] REPOSITORY [facility] Cardiovascular Services [address] [place] [address] 12 Lead EKG 04/30/18 1055 MR#: [id number] Acct: [id number] Name: KEILY RASMUSSEN Rep #: [id number] : 1995 22 From: Kalyan Thomas MD Attending Dr: Status: DEP ER Ordering Dr: Manuel Davidson MD Date: 04/30/18 Location: ED Sex: F C Admitted: Test Reason : CP/SOB Blood Pressure : / mmHG Vent. Rate : 064 BPM Atrial Rate : 064 BPM P-R Int : 144 ms QRS Dur : 142 ms QT Int : 448 ms P-R-T Axes : 031 015 123 degrees QTc Int : 462 ms Normal sinus rhythm Left bundle branch block Abnormal ECG Confirmed by NATHALIE HANEY, KALYAN ([id number]), food editor MERVIN RODRIGUEZ ([id number]) on 05/04/2018 2:28:49 PM Referred By: JEFFERY/SISI Confirmed By:KALYAN THOMAS MD 05/04/18 1428 Date Kalyan Thomas MD CC: Ken Barnes MD; Manuel Davidson MD Signed EMERGENCY DEPARTMENT Observed: 04/30/2018 Status: F Source: [place] SUMMARY 3:32 PM [facility] Medical Records Department [address] [place] [address] Emergency Department Summary 04/30/18 1102 MR#: [id number] Acct: [id number] Name: KEILY RASMUSSEN Rep #: [id number] : 1995 22 From: Manuel Davidson MD PCP: Ken Barnes MD Status: DEP ER - ER Visit Summary Date of Service: 04/30/18 Chief Complaint: Chest pain History of Present Illness: The patient is a 22 F presents to the emergency department chest pain. Patient symptoms began last night. She describes a burning pain in mid epigastric area that radiates around. She denies any fevers or chills. She denies any cough. It was made worse with eating. She states that she has never had symptoms like this involving her back, but she will get symptoms in her upper stomach into her chest frequently. She denies any history of coronary vascular disease. She has no history of pulmonary embolus. Physical Examination: Vital signs reviewed General: Well-nourished, well-developed Head: Normocephalic, atraumatic Eyes: Pupils equal and reactive, extraocular muscles intact Neck, supple, no lymphadenopathy Heart: Regular rate and rhythm Respiratory: No distress, clear bilaterally Abdomen: Soft, tender in the midepigastric area without rebound or guarding, nondistended, no peritoneal signs Back: Nontender Extremities: Nontender, no edema, no cords Skin: Normal color no rash Neuro: Alert and oriented, no focal or lateralizing deficits Test Results: [] Emergency Department Course and Treatment: The patient declined any prior medical issues, but review of the records and on her examination, she has had prior sternotomy. Her pain is entirely reproducible in the midepigastric area. She is now febrile. She is not tachycardic. EKG was obtained. It showed a left bundle branch block which was unchanged. Her chest x-ray was also unremarkable. Patient was given a GI cocktail with some improvement. Her pain is entirely reproducible. She is no history of coronary vascular disease. She has had multiple workups in the past for chest pain. I do feel that she is safe for outpatient therapy. I am going to treat her with anti-inflammatories. She will be discharged home. Treatment Plan: [] Disposition: Discharge Impression: Chest pain This note was generated with Anulexation software. It may contain incorrect words, spelling, and punctuation that were not noted in review of the chart prior to signing ED Disposition - Plan for ED Patient: Chief Complaint: Chest Pain Instructions: ED Chest Pain NonCardiac Prescriptions: Naproxen [Naprosyn] 500 mg PO BID PRN #20 tab Referrals: Ken Barnes MD [Primary Care Provider] - What to do if you have Problems For any increased pain, shortness of breath, bleeding, nausea or vomiting, chest pain, or any unexpected problems, contact your Primary Care Provider. Call [facility] ([phone]) or report to the closest Emergency Room. Call 911 if necessary. 04/30/18 1532 <Electronically signed by Manuel Davidson MD> Date Manuel Davidson MD Cosigner Signature (If Indicated): Date CC: Ken Barnes MD CHEST PA AND LATERAL Observed: 04/30/2018 Status: F Source: [place] 11:00 AM [facility] REPOSITORY [facility] Imaging Services [address] [place] [id number] Chest PA and Lateral MR#: [id number] Acct: [id number] Name: KEILY RASMUSSEN Rep #: [id number] : 1995 F 22 From: Seng Luna MD PCP: Ken Barnes MD Status: REG ER Study: Chest PA and Lateral Date of Exam: 04/30/18 Exam# [id number] Ordering Dr: Manuel Davidson MD STUDY: X-RAY CHEST REASON FOR EXAM: Female, 22 years old. Chest pain. TECHNIQUE: PA and lateral views of the chest. COMPARISON: Comparison is made with prior study dated October 24, 2017. FINDINGS: The lungs are clear and expanded. There is no demonstrated pleural abnormality. Sternal cerclage wires are present from a prior sternotomy. Normal mediastinum and gerald. Normal visualized pulmonary arteries. Normal visualized aortic arch and descending thoracic aorta. Normal visualized thoracic spine. Normal visualized ribs, clavicles, and shoulders. There is no demonstrated abnormality of the visualized soft tissue structures of the upper abdomen. RAD/Chest PA and Lateral IMPRESSION: Status post midline sternotomy. No acute abnormality is seen. Electronically Signed: Seng Luna MD at 12:11 EST Tel [phone], Service support , CC: Ken Barnes MD; Manuel Davidson MD Bridge Tender: Signed CNCO Observed: 04/22/2018 Status: COMPLETED Source: [place] 12:00 AM [facility] REPOSITORY Letter Text Manuel Muro DO [facility] [address] [place] [address] Keily Martin Valery April 22, 2018 Keily Rasmussen [address] [facility] [address] Dear Rodolfo Rasmussen, It was noted that you did not keep your scheduled appointment on 04/22/18. It is important to contact the office in advance if you are unable to keep your appointment so that it is available for other patients. Your medical care is important to us. Please call our office to reschedule an appointment. Sincerely, Manuel Muro DO PROGRESS Observed: 04/15/2018 Status: COMPLETED Source: [place] 1:04 PM [facility] REPOSITORY HNO ID: [id number] Author: Melisa ([facility]) Podlogar Service: (none) Author Type: Nurse Practitioner Type: Progress Notes Filed: 04/15/2018 1:40 PM Note Text: 04/15/2018 Patient presents with: Chest Congestion: pt states started two days ago, head ache, cough, sinus congetion, fever, chest hurts SUBJECTIVE: This is a 22 year old that is here today for Above Complaints. Last seen on 04/01/2018 for bilateral ear pain. Was given prescription for ear drops and amoxicillin, Is doing ear drops, however reports she developed rash 2 days into amoxicillin. Called in yesterday and antibiotic changed to cefdinir. Started yesterday when got filled. Reports two days a go started with scratchy throat and runny nose. Progressed to sinus congestion, cough, and tactile fever. Using albuterol inhaler several times a day for coughing and wheezing which helps. Positive for tactile fever, chills, ear pain, SOB with exertion, chest congestion, and wheezing. Denies dyspnea, chest pain, abdominal pain, nausea, vomiting,and diarrhea. PAST MEDICAL HISTORY Diagnosis Date - Aortic stenosis s/p repair of a PDA and subvalvular aortic stenosis. Sees Dr. Haider and Dr. Marie - Asthma - Morbid obesity (HCC) - PCOS (polycystic ovarian syndrome) elevated testosterone and elevated insulin - PDA (patent ductus arteriosus) s/p repair age 10 - Tobacco use ALLERGIES Amoxicillin; Penicillins; Tetanus And Diphtheria Toxoids, Adsorbed, Adult MEDICATIONS Current Outpatient Prescriptions: cefdinir (OMNICEF) 300 mg capsule Take 1 capsule by mouth twice daily for 10 days. varenicline (CHANTIX STARTING MONTH BOX) 0.5 mg (11)- 1 mg (42) tablet Take 1 tablet (0.5 mg) by mouth once daily for 3 days, then 1 tablet (0.5 mg) twice daily for 4 days, then one tablet (1 mg) twice daily. omeprazole (PRILOSEC) 20 mg capsule Take 1 capsule by mouth once daily. vit-iron fumarate-fa ( MULTIVITAMINS) 28 mg iron- 800 mcg tab Take 1 tablet by mouth once daily. sertraline (ZOLOFT) 50 mg tablet 1/2 pill daily X 1 week; then increase to a whole pill daily. albuterol HFA (VENTOLIN HFA) 90 mcg/actuation inhaler Inhale 2 Puffs as instructed every 4 hours as needed. nystatin-triamcinolone (MYCOLOG) ointment Apply sparingly to perineum twice daily for irritation/infection. triamcinolone acetonide (KENALOG) 0.1 % cream Apply 1 application to affected area twice daily. Apply to affected area. No current facility-administered medications for this visit. Medications and allergies reviewed by this provider. SOCIAL HISTORY Social History Marital status: Single Spouse name: Years of education: Number of children: Occupational History Occupation Employer Comment Unemployed Social History Main Topics Smoking status: Current Every Day Smoker Packs/day: 0.50 Years: 2.00 Types: Cigarettes Smokeless tobacco: Never Used Alcohol use: No Drug use: No Sexual activity: Yes Partners with: Male REVIEW OF SYSTEMS All other reviewed and negative other than HPI. OBJECTIVE: BP 120/60 (BP Site: Left Arm, BP Position: Sitting, BP Cuff Size: Large Adult) Pulse 89 Temp 37.1 ?C (98.7 ?F) Resp 18 Wt (!) 137 kg (302 lb 1.3 oz) SpO2 95% BMI 47.31 kg/m? . Vital signs reviewed by this provider. APPEARANCE Well appearing, alert, in no acute distress, well-hydrated, well nourished. and Morbidly obese EYES PERRLA, conjunctiva and sclera normal. EARS Negative findings: Right tympanic color is salgado, normal light reflex, Positive findings: L TM: erythematous,on left NOSE/SINUS negative findings: septum midline with no perforation or bleeding, positive findings: sinus tenderness frontal bilateral, maxillary bilateral, mucosa erythematous and swollen, congested, clear rhinorrhea THROAT mild erythema, tonsillar hypertrophy, 2+ and throat culture taken NECK Supple, no adenopathy; thyroid symmetric, normal size, HEART RRR with normal S1 and S2, no murmurs, no gallops, no JVD appreciated LUNG clear to auscultation SKIN Skin color, texture, turgor normal, no suspicious rashes or lesions ASSESSMENT/PLAN: 1. URI, acute - ICD9: 465.9, ICD10: J06.9 - Rapid strep postive in office today - Symptomatic treatment with prn analgesia - Supportive care with fluids and rest - The patient may also use OTC cough and cold meds as needed, warm salt water gargles, throat lozenges and/or OTC throat spray as needed and nasal saline gtts and suction prn. - Follow up in 3-5 days if symptoms persist or sooner if worsening of symptoms 2. Strep throat - ICD9: 034.0, ICD10: J02.0 - suspect viral - Rapid Strep positive in the office today - Continue cefdinir and complete entire course - Discussed supportive care treatment with fluids, rest and analgesia. - The patient may also use OTC cough and cold meds as needed and warm salt water gargles, throat lozenges and/or OTC throat spray as needed. - Contagious dz precautions discussed- including considered contagious until on antibiotics for 24 hours - The patient should follow up in 3-5 days if symptoms persist or worsen - Call back if drooling, increased temperature, symptoms of dehydration and/or still sick in one week Melisa Barrientos APRN.CNP Prescription instructions reviewed with patient as applicable. Patient advised if symptoms do not improve or if symptoms worsen sooner, to contact their primary care physician. Potential red flag symptoms discussed with the patient. Reviewed appropriate action plan to take if red flag symptoms occur. Patient agreeable to treatment plan. CNOV Observed: 04/15/2018 Status: COMPLETED Source: [place] 1:00 PM [facility] REPOSITORY [facility] KEILY RASMUSSEN ([id number]) 1995 F Date Time Provider Department 04/15/18 1:00 PM MELISA BARRIENTOS (JOHN) JAMES During your visit today, we recorded the following information about you: Temperature Pulse Respiration Blood pressure 98.7 degrees 89/minute 18/minute 120/60 Weight 137 kg Melisa Barrientos APRN.CNP 04/15/2018 1:40 PM Signed 04/15/2018 Patient presents with: Chest Congestion: pt states started two days ago, head ache, cough, sinus congetion, fever, chest hurts SUBJECTIVE: This is a 22 year old that is here today for Above Complaints. Last seen on 04/01/2018 for bilateral ear pain. Was given prescription for ear drops and amoxicillin, Is doing ear drops, however reports she developed rash 2 days into amoxicillin. Called in yesterday and antibiotic changed to cefdinir. Started yesterday when got filled. Reports two days a go started with scratchy throat and runny nose. Progressed to sinus congestion, cough, and tactile fever. Using albuterol inhaler several times a day for coughing and wheezing which helps. Positive for tactile fever, chills, ear pain, SOB with exertion, chest congestion, and wheezing. Denies dyspnea, chest pain, abdominal pain, nausea, vomiting,and diarrhea. PAST MEDICAL HISTORY Diagnosis Date - Aortic stenosis s/p repair of a PDA and subvalvular aortic stenosis. Sees Dr. Haider and Dr. Marie - Asthma - Morbid obesity (HCC) - PCOS (polycystic ovarian syndrome) elevated testosterone and elevated insulin - PDA (patent ductus arteriosus) s/p repair age 10 - Tobacco use ALLERGIES Amoxicillin; Penicillins; Tetanus And Diphtheria Toxoids, Adsorbed, Adult MEDICATIONS Current Outpatient Prescriptions: cefdinir (OMNICEF) 300 mg capsule Take 1 capsule by mouth twice daily for 10 days. varenicline (CHANTIX STARTING MONTH BOX) 0.5 mg (11)- 1 mg (42) tablet Take 1 tablet (0.5 mg) by mouth once daily for 3 days, then 1 tablet (0.5 mg) twice daily for 4 days, then one tablet (1 mg) twice daily. omeprazole (PRILOSEC) 20 mg capsule Take 1 capsule by mouth once daily. vit-iron fumarate-fa ( MULTIVITAMINS) 28 mg iron- 800 mcg tab Take 1 tablet by mouth once daily. sertraline (ZOLOFT) 50 mg tablet 1/2 pill daily X 1 week; then increase to a whole pill daily. albuterol HFA (VENTOLIN HFA) 90 mcg/actuation inhaler Inhale 2 Puffs as instructed every 4 hours as needed. nystatin-triamcinolone (MYCOLOG) ointment Apply sparingly to perineum twice daily for irritation/infection. triamcinolone acetonide (KENALOG) 0.1 % cream Apply 1 application to affected area twice daily. Apply to affected area. No current facility-administered medications for this visit. Medications and allergies reviewed by this provider. SOCIAL HISTORY Social History Marital status: Single Spouse name: Years of education: Number of children: Occupational History Occupation Employer Comment Unemployed Social History Main Topics Smoking status: Current Every Day Smoker Packs/day: 0.50 Years: 2.00 Types: Cigarettes Smokeless tobacco: Never Used Alcohol use: No Drug use: No Sexual activity: Yes Partners with: Male REVIEW OF SYSTEMS All other reviewed and negative other than HPI. OBJECTIVE: BP 120/60 (BP Site: Left Arm, BP Position: Sitting, BP Cuff Size: Large Adult) Pulse 89 Temp 37.1 ?C (98.7 ?F) Resp 18 Wt (!) 137 kg (302 lb 1.3 oz) SpO2 95% BMI 47.31 kg/m? . Vital signs reviewed by this provider. APPEARANCE Well appearing, alert, in no acute distress, well- hydrated, well nourished. and Morbidly obese EYES PERRLA, conjunctiva and sclera normal. EARS Negative findings: Right tympanic color is salgado, normal light reflex, Positive findings: L TM: erythematous,on left NOSE/SINUS negative findings: septum midline with no perforation or bleeding, positive findings: sinus tenderness frontal bilateral, maxillary bilateral, mucosa erythematous and swollen, congested, clear rhinorrhea THROAT mild erythema, tonsillar hypertrophy, 2+ and throat culture taken NECK Supple, no adenopathy; thyroid symmetric, normal size, HEART RRR with normal S1 and S2, no murmurs, no gallops, no JVD appreciated LUNG clear to auscultation SKIN Skin color, texture, turgor normal, no suspicious rashes or lesions ASSESSMENT/PLAN: 1. URI, acute - ICD9: 465.9, ICD10: J06.9 - Rapid strep postive in office today - Symptomatic treatment with prn analgesia - Supportive care with fluids and rest - The patient may also use OTC cough and cold meds as needed, warm salt water gargles, throat lozenges and/or OTC throat spray as needed and nasal saline gtts and suction prn. - Follow up in 3-5 days if symptoms persist or sooner if worsening of symptoms 2. Strep throat - ICD9: 034.0, ICD10: J02.0 - suspect viral - Rapid Strep positive in the office today - Continue cefdinir and complete entire course - Discussed supportive care treatment with fluids, rest and analgesia. - The patient may also use OTC cough and cold meds as needed and warm salt water gargles, throat lozenges and/or OTC throat spray as needed. - Contagious dz precautions discussed- including considered contagious until on antibiotics for 24 hours - The patient should follow up in 3-5 days if symptoms persist or worsen - Call back if drooling, increased temperature, symptoms of dehydration and/or still sick in one week Melisa Podlogar, TEST GRADER.FLOUR TESTER Prescription instructions reviewed with patient as applicable. Patient advised if symptoms do not improve or if symptoms worsen sooner, to contact their primary care physician. Potential red flag symptoms discussed with the patient. Reviewed appropriate action plan to take if red flag symptoms occur. Patient agreeable to treatment plan. Melisa Barrientos APRN.CNP 04/15/2018 1:33 PM Signed Complete entire course of antibiotcsWhat is strep throat? Strep throat is an infection caused by a specific type of bacteria, Streptococcus. When your child has a strep throat, the tonsils are usually very inflamed, and the inflammation may affect the surrounding part of the throat as well. Symptoms Strep throat is caused by a bacterium called Streptococcus pyogenes. To some extent, the symptoms of strep throat depend on the child?s age. - Infants with strep infections may have only a low fever and a thickened or bloody nasal discharge. - Toddlers (ages one to three) also may have a thickened or bloody nasal discharge with a fever. Such children are usually quite cranky, have no appetite, and often have swollen glands in the neck. Sometimes toddlers will complain of tummy pain instead of a sore throat. - Children over three years of age with strep are often more ill; they may have an extremely painful throat, fever over 102 degrees Fahrenheit (38.9 degrees Celsius), swollen glands in the neck, and pus on the tonsils. It?s important to be able to distinguish a strep throat from a viral sore throat, because strep infections are treated with antibiotics. When to call the saddle lining stitcher If your child has a sore throat that persists (not one that goes away after her first drink in the morning), whether or not it is accompanied by fever, headache, stomachache, or extreme fatigue, you should call your saddle lining stitcher. That call should be made even more urgently if your child seems extremely ill, or if she has difficulty breathing or extreme trouble swallowing (causing her to drool). This may indicate a more serious infection. Treatment If the strep test shows that your child does have strep throat, your saddle lining stitcher will prescribe an antibiotic to be taken by mouth or by injection. If your child is given the oral medication, it?s very important that she take it for the full course, as prescribed, even if the symptoms get better or go away. If a child?s strep throat is not treated with antibiotics, or if she doesn?t complete the treatment, the infection may worsen or spread to other parts of her body, leading to conditions such as abscesses of the tonsils or kidney problems. Untreated strep infections also can lead to rheumatic fever, a disease that affects the heart. However, rheumatic fever is rare in the [place] and in children under five years old. Prevention Most types of throat infections are contagious, being passed primarily through the air on droplets of moisture or on the hands of infected children or adults. For that reason, it makes sense to keep your child away from people who have symptoms of this condition. However, most people are contagious before their first symptoms appear, so often there?s really no practical way to prevent your child from daljit the disease. In the past when a child had several sore throats, her tonsils might have been removed in an attempt to prevent further infections. But this operation, called a tonsillectomy, is recommended today only for the most severely affected children. Even in difficult cases, where there is repeated strep throat, antibiotic treatment is usually the best solution. Referring Provider: SELF [200] Allergies As of Date: 04/15/2018 Noted Allergy Reaction AMOXICILLIN 04/15/2018 2 - Rash PENICILLINS 11/28/2014 4 - Hives TETANUS AND DIPHTHERIA TOXOIDS, A*04/14/2017 2 - Rash Comments: Local erythema and swelling in the affected arm. Date Reviewed: 04/15/2018 Reviewed by: Irene Fontenot (Neal) NEAL Rodriguez - Fully Assessed Reason for Visit: Chest Congestion [236] Cmt: pt states started two days ago, head ache, cough, sinus congetion, fever, chest hurts Primary Visit Diagnosis:URI, acute [J06.9] Other Visit Diagnosis:Strep throat [J02.0] Order(s):RAPID STREP TEST B/O [[id number]] Order #: [id number] Prescriptions as of 04/15/2018 Sig: CEFDINIR 300 MG CAPSULE Take 1 capsule by mouth twice* VARENICLINE 0.5 MG (11)-1 MG * Take 1 tablet (0.5 mg) by liat* OMEPRAZOLE 20 MG CAPSULE,VANCE* Take 1 capsule by mouth once * VIT NO.95-FERROUS FU* Take 1 tablet by mouth once d* SERTRALINE 50 MG TABLET 1/2 pill daily X 1 week; then* ALBUTEROL SULFATE HFA 90 MCG/* Inhale 2 Puffs as instructed * NYSTATIN-TRIAMCINOLONE 100,00* Apply sparingly to perineum t* TRIAMCINOLONE ACETONIDE 0.1 %* Apply 1 application to affect* Problem List As Of Date 04/15/2018 Noted Resolved Heart valve stenosis [I38] INVALID FOR* Obesity, Class III, BMI 40-49.9 (morbid obesity*INVALID FOR* Hyperinsulinemia [E16.1] INVALID FOR* Adjustment disorder with mixed anxiety and depr*INVALID FOR* Priority: C More... Seasonal allergic rhinitis due to pollen [J30.1]INVALID FOR* Morbid obesity (HCC) [E66.01] Asthma [J45.909] Priority: B More... Aortic stenosis [I35.0] Priority: A More... PCOS (polycystic ovarian syndrome) [E28.2] More... Pre-op testing [Z01.818] INVALID FOR* More... Discharge planning issues [Z02.9] INVALID FOR* Priority: D More... On mechanically assisted ventilation (HCC) [Z99*INVALID FOR*06/18/2017 Priority: B More... Acute post-operative pain [G89.18] INVALID FOR* Priority: C More... Atelectasis [J98.11] INVALID FOR* Priority: B More... Hypovolemia [E86.1] INVALID FOR*06/18/2017 Priority: F More... Essential hypertension [I10] INVALID FOR* Priority: C More... Transition of care performed with sharing of cl*INVALID FOR* Priority: Very Severe More... Nicotine use disorder, F17.2 [F17.200] INVALID FOR* QUINTON (obstructive sleep apnea) [G47.33] INVALID FOR* Other instructions from your clinician: Complete entire course of antibiotcsWhat is strep throat? Strep throat is an infection caused by a specific type of bacteria, Streptococcus. When your child has a strep throat, the tonsils are usually very inflamed, and the inflammation may affect the surrounding part of the throat as well. Symptoms Strep throat is caused by a bacterium called Streptococcus pyogenes. To some extent, the symptoms of strep throat depend on the child?s age. - Infants with strep infections may have only a low fever and a thickened or bloody nasal discharge. - Toddlers (ages one to three) also may have a thickened or bloody nasal discharge with a fever. Such children are usually quite cranky, have no appetite, and often have swollen glands in the neck. Sometimes toddlers will complain of tummy pain instead of a sore throat. - Children over three years of age with strep are often more ill; they may have an extremely painful throat, fever over 102 degrees Fahrenheit (38.9 degrees Celsius), swollen glands in the neck, and pus on the tonsils. It?s important to be able to distinguish a strep throat from a viral sore throat, because strep infections are treated with antibiotics. When to call the saddle lining stitcher If your child has a sore throat that persists (not one that goes away after her first drink in the morning), whether or not it is accompanied by fever, headache, stomachache, or extreme fatigue, you should call your saddle lining stitcher. That call should be made even more urgently if your child seems extremely ill, or if she has difficulty breathing or extreme trouble swallowing (causing her to drool). This may indicate a more serious infection. Treatment If the strep test shows that your child does have strep throat, your saddle lining stitcher will prescribe an antibiotic to be taken by mouth or by injection. If your child is given the oral medication, it?s very important that she take it for the full course, as prescribed, even if the symptoms get better or go away. If a child?s strep throat is not treated with antibiotics, or if she doesn?t complete the treatment, the infection may worsen or spread to other parts of her body, leading to conditions such as abscesses of the tonsils or kidney problems. Untreated strep infections also can lead to rheumatic fever, a disease that affects the heart. However, rheumatic fever is rare in the [place] and in children under five years old. Prevention Most types of throat infections are contagious, being passed primarily through the air on droplets of moisture or on the hands of infected children or adults. For that reason, it makes sense to keep your child away from people who have symptoms of this condition. However, most people are contagious before their first symptoms appear, so often there?s really no practical way to prevent your child from daljit the disease. In the past when a child had several sore throats, her tonsils might have been removed in an attempt to prevent further infections. But this operation, called a tonsillectomy, is recommended today only for the most severely affected children. Even in difficult cases, where there is repeated strep throat, antibiotic treatment is usually the best solution. Follow-up and Disposition History Recorded Encounter Status:Closed by MELISA BARRIENTOS CNP on 04/15/18 PROGRESS Observed: 04/01/2018 Status: COMPLETED Source: [place] 10:40 AM [facility] [place] REPOSITORY HNO ID: [id number] Author: Medardo Velazquez Service: (none) Author Type: Physician Head Of Digital Type: Progress Notes Filed: 04/01/2018 11:40 AM Note Text: Chief Complaint No chief complaint on file. REBEL Rasmussen is a 22 year old female who presents here today for Acute onset of ear pain.. Patient has had URI symptoms but last week developed ear pain . L>R. Went swimming on Friday and pain worsened. No drainage. Some tinnitus. Denies hearing loss but sounds are muffled. No fevers. Past medical history, appointments, medications, allergies reviewed. Previous Medical History PAST MEDICAL HISTORY Diagnosis Date - Aortic stenosis s/p repair of a PDA and subvalvular aortic stenosis. Sees Dr. Haider and Dr. Marie - Asthma - Morbid obesity (HCC) - PCOS (polycystic ovarian syndrome) elevated testosterone and elevated insulin - PDA (patent ductus arteriosus) s/p repair age 10 - Tobacco use Previous Surgical History PAST SURGICAL HISTORY Procedure Laterality Date - PAST SURGICAL HISTORY OF 2005 Repair of a PDA and subvalvular aortic stenosis-childhood - PAST SURGICAL HISTORY OF resection subaortic membrane May 2017 Family History FAMILY HISTORY Problem Relation Age of Onset - COPD Mother - Thyroid Mother - Asthma Mother - Diabetes Father - Heart Father CO - other (Bone Disease) Brother - COPD Sister - Diabetes Brother - Hypertension Maternal Grandmother - COPD Maternal Grandmother - Emphysema Maternal Grandmother - Heart Maternal Grandfather - Hypertension Maternal Grandfather - Cancer Paternal Uncle Patient Allergies ALLERGIES Allergen Reactions - Penicillins Hives - Tetanus And Diphthe* Rash Local erythema and swelling in the affected arm. Current Medications Current Outpatient Prescriptions on File Prior to Visit: omeprazole (PRILOSEC) 20 mg capsule Take 1 capsule by mouth once daily. vit-iron fumarate-fa ( MULTIVITAMINS) 28 mg iron- 800 mcg tab Take 1 tablet by mouth once daily. sertraline (ZOLOFT) 50 mg tablet 1/2 pill daily X 1 week; then increase to a whole pill daily. albuterol HFA (VENTOLIN HFA) 90 mcg/actuation inhaler Inhale 2 Puffs as instructed every 4 hours as needed. nystatin-triamcinolone (MYCOLOG) ointment Apply sparingly to perineum twice daily for irritation/infection. triamcinolone acetonide (KENALOG) 0.1 % cream Apply 1 application to affected area twice daily. Apply to affected area. No current facility-administered medications on file prior to visit. Social History Social History Marital status: Single Spouse name: Years of education: Number of children: Occupational History Occupation Employer Comment Unemployed Social History Main Topics Smoking status: Current Every Day Smoker Packs/day: 0.50 Years: 2.00 Types: Cigarettes Smokeless tobacco: Never Used Alcohol use: No Drug use: No Sexual activity: Yes Partners with: Male Review of Symptoms REVIEW OF SYSTEMS see hpi EXAM: BP 140/70 Pulse 86 Temp 37.3 ?C (99.1 ?F) (Tympanic) Resp 12 Wt 134.7 kg (297 lb) LMP 03/08/2018 (Exact Date) BMI 46.52 kg/m? General Appearance: Well appearing, alert, in no acute distress, well-hydrated, well nourished.. Eyes: Anicteric sclera. Pupils are equally round and reactive to light. Extraocular movements are intact. . Ears: L canal erythematous and inflamed. Tender to exam. L TM bulging and erythematous. R canal clear. R TM with mild erythema. Nose/Sinuses: Nares normal, septum midline, mucosa normal, no drainage or sinus tenderness. Oropharynx: Lips, mucosa, and tongue normal, teeth and gums normal, oropharynx normal. Lungs: lungs clear to auscultation. No wheezing, rhonchi, rales. Heart: RRR without murmur, gallop, or rubs. No ectopy. Health Maintenance List MENINGOCOCCAL CONJUGATE(1 of 1 - 2-dose series) due on 2013 HPV VACCINE(2 - Female 3-dose series) due on 07/25/2017 GC (GONORRHEA) SCREENING (18-24) due on 12/22/2018 CHLAMYDIA SCREENING (18-24) due on 12/22/2018 ANNUAL PCP TEAM CHRONIC DISEASE VISIT due on 03/04/2019 BP CONTROLLED (<130/80) due on 03/10/2019 DTAP,TDAP,TD(2 - Td) due on 04/11/2027 ONE PNEUMOVAX PRIOR TO AGE 65 Completed INFLUENZA Completed Data reviewed ASSESSMENT/PLAN: 1. Acute swimmer's ear of left side - ICD9: 380.12, ICD10: H60.332 (primary diagnosis) Start antibiotic ear drops Avoid water getting into ear. 2. Acute otitis media, bilateral - ICD9: 382.9, ICD10: H66.93 - Will begin treatment with Amoxicillin for 10 days- Patient states this works best for her and has not had any problems taking it in past. Reports pcn allergy was mentioned when she was a baby. chantix given for smoking cessation. Follow up as needed. Prescription instructions reviewed with patient as applicable. Patient advised if symptoms do not improve or if symptoms worsen sooner, to contact their primary care physician. Potential red flag symptoms discussed with the patient. Reviewed appropriate action plan to take if red flag symptoms occur. Patient agreeable to treatment plan. TASHI EDWARD Observed: 04/01/2018 Status: COMPLETED Source: [place] 10:40 AM [facility] REPOSITORY Office Visit (FAMPWS) KEILY RASMUSSEN ([id number]) 1995 F Date Time Provider Department 04/01/18 10:40 AM KOBE VELAZQUEZ) FAMPWS During your visit today, we recorded the following information about you: Temperature Pulse Respiration Blood pressure 99.1 degrees 86/minute 12/minute 140/70 Weight 134.7 kg RUBY VELAZQUEZ PA-C 04/01/2018 11:40 AM Signed Chief Complaint No chief complaint on file. REBEL Toledoothy Mario Valery is a 22 year old female who presents here today for Acute onset of ear pain.. Patient has had URI symptoms but last week developed ear pain . L>R. Went swimming on Friday and pain worsened. No drainage. Some tinnitus. Denies hearing loss but sounds are muffled. No fevers. Past medical history, appointments, medications, allergies reviewed. Previous Medical History PAST MEDICAL HISTORY Diagnosis Date - Aortic stenosis s/p repair of a PDA and subvalvular aortic stenosis. Sees Dr. Haider and Dr. Marie - Asthma - Morbid obesity (HCC) - PCOS (polycystic ovarian syndrome) elevated testosterone and elevated insulin - PDA (patent ductus arteriosus) s/p repair age 10 - Tobacco use Previous Surgical History PAST SURGICAL HISTORY Procedure Laterality Date - PAST SURGICAL HISTORY OF 2005 Repair of a PDA and subvalvular aortic stenosis-childhood - PAST SURGICAL HISTORY OF resection subaortic membrane May 2017 Family History FAMILY HISTORY Problem Relation Age of Onset - COPD Mother - Thyroid Mother - Asthma Mother - Diabetes Father - Heart Father CO - other (Bone Disease) Brother - COPD Sister - Diabetes Brother - Hypertension Maternal Grandmother - COPD Maternal Grandmother - Emphysema Maternal Grandmother - Heart Maternal Grandfather - Hypertension Maternal Grandfather - Cancer Paternal Uncle Patient Allergies ALLERGIES Allergen Reactions - Penicillins Hives - Tetanus And Diphthe* Rash Local erythema and swelling in the affected arm. Current Medications Current Outpatient Prescriptions on File Prior to Visit: omeprazole (PRILOSEC) 20 mg capsule Take 1 capsule by mouth once daily. vit-iron fumarate-fa ( MULTIVITAMINS) 28 mg iron- 800 mcg tab Take 1 tablet by mouth once daily. sertraline (ZOLOFT) 50 mg tablet 1/2 pill daily X 1 week; then increase to a whole pill daily. albuterol HFA (VENTOLIN HFA) 90 mcg/actuation inhaler Inhale 2 Puffs as instructed every 4 hours as needed. nystatin-triamcinolone (MYCOLOG) ointment Apply sparingly to perineum twice daily for irritation/infection. triamcinolone acetonide (KENALOG) 0.1 % cream Apply 1 application to affected area twice daily. Apply to affected area. No current facility-administered medications on file prior to visit. Social History Social History Marital status: Single Spouse name: Years of education: Number of children: Occupational History Occupation Employer Comment Unemployed Social History Main Topics Smoking status: Current Every Day Smoker Packs/day: 0.50 Years: 2.00 Types: Cigarettes Smokeless tobacco: Never Used Alcohol use: No Drug use: No Sexual activity: Yes Partners with: Male Review of Symptoms REVIEW OF SYSTEMS see hpi EXAM: BP 140/70 Pulse 86 Temp 37.3 ?C (99.1 ?F) (Tympanic) Resp 12 Wt 134.7 kg (297 lb) LMP 03/08/2018 (Exact Date) BMI 46.52 kg/m? General Appearance: Well appearing, alert, in no acute distress, well-hydrated, well nourished.. Eyes: Anicteric sclera. Pupils are equally round and reactive to light. Extraocular movements are intact. . Ears: L canal erythematous and inflamed. Tender to exam. L TM bulging and erythematous. R canal clear. R TM with mild erythema. Nose/Sinuses: Nares normal, septum midline, mucosa normal, no drainage or sinus tenderness. Oropharynx: Lips, mucosa, and tongue normal, teeth and gums normal, oropharynx normal. Lungs: lungs clear to auscultation. No wheezing, rhonchi, rales. Heart: RRR without murmur, gallop, or rubs. No ectopy. Health Maintenance List MENINGOCOCCAL CONJUGATE(1 of 1 - 2-dose series) due on 2013 HPV VACCINE(2 - Female 3-dose series) due on 07/25/2017 GC (GONORRHEA) SCREENING (18-24) due on 12/22/2018 CHLAMYDIA SCREENING (18-24) due on 12/22/2018 ANNUAL PCP TEAM CHRONIC DISEASE VISIT due on 03/04/2019 BP CONTROLLED (<130/80) due on 03/10/2019 DTAP,TDAP,TD(2 - Td) due on 04/11/2027 ONE PNEUMOVAX PRIOR TO AGE 65 Completed INFLUENZA Completed Data reviewed ASSESSMENT/PLAN: 1. Acute swimmer's ear of left side - ICD9: 380.12, ICD10: H60.332 (primary diagnosis) Start antibiotic ear drops Avoid water getting into ear. 2. Acute otitis media, bilateral - ICD9: 382.9, ICD10: H66.93 - Will begin treatment with Amoxicillin for 10 days- Patient states this works best for her and has not had any problems taking it in past. Reports pcn allergy was mentioned when she was a baby. chantix given for smoking cessation. Follow up as needed. Prescription instructions reviewed with patient as applicable. Patient advised if symptoms do not improve or if symptoms worsen sooner, to contact their primary care physician. Potential red flag symptoms discussed with the patient. Reviewed appropriate action plan to take if red flag symptoms occur. Patient agreeable to treatment plan. RUBY VELAZQUEZ PA-C Referring Provider: SELF [[id number]] Allergies As of Date: 04/01/2018 Noted Allergy Reaction PENICILLINS 11/28/2014 4 - Hives TETANUS AND DIPHTHERIA TOXOIDS, A*04/14/2017 2 - Rash Comments: Local erythema and swelling in the affected arm. Date Reviewed: 04/01/2018 Reviewed by: Shonna Pollard Ma - Fully Assessed Primary Visit Diagnosis:Acute swimmer's ear of left side [H60.332] Other Visit Diagnosis:Acute otitis media, bilateral [H66.93] Order(s):varenicline (CHANTIX STARTING MONTH BOX) 0.5 mg (11)- 1 mg (42) tabletTake 1 tablet (0.5 mg) by mouth once daily for 3 days, then 1 tablet (0.5 mg) twice daily for 4 days, then one tablet (1 mg) twice daily.Disp: 53 tabletRfl: 0 Amoxicillin 500 mg tabletTake 1 tablet by mouth twice daily for 10 days.Disp: 20 tabletRfl: 0 ciprofloxacin-dexamethasone (CIPRODEX) otic suspensionUse 4 Drops in the left ear twice daily for 7 days.Disp: 5 mLRfl: 0 Prescriptions as of 04/01/2018 Sig: OMEPRAZOLE 20 MG CAPSULE,VANCE* Take 1 capsule by mouth once * VIT NO.95-FERROUS FU* Take 1 tablet by mouth once d* SERTRALINE 50 MG TABLET 1/2 pill daily X 1 week; then* ALBUTEROL SULFATE HFA 90 MCG/* Inhale 2 Puffs as instructed * VARENICLINE 0.5 MG (11)-1 MG * Take 1 tablet (0.5 mg) by liat* AMOXICILLIN 500 MG TABLET Take 1 tablet by mouth twice * CIPROFLOXACIN 0.3 %-DEXAMETHA* Use 4 Drops in the left ear t* NYSTATIN-TRIAMCINOLONE 100,00* Apply sparingly to perineum t* TRIAMCINOLONE ACETONIDE 0.1 %* Apply 1 application to affect* Problem List As Of Date 04/01/2018 Noted Resolved Heart valve stenosis [I38] INVALID FOR* Obesity, Class III, BMI 40-49.9 (morbid obesity*INVALID FOR* Hyperinsulinemia [E16.1] INVALID FOR* Adjustment disorder with mixed anxiety and depr*INVALID FOR* Priority: C More... Seasonal allergic rhinitis due to pollen [J30.1]INVALID FOR* Morbid obesity (HCC) [E66.01] Asthma [J45.909] Priority: B More... Aortic stenosis [I35.0] Priority: A More... PCOS (polycystic ovarian syndrome) [E28.2] More... Pre-op testing [Z01.818] INVALID FOR* More... Discharge planning issues [Z02.9] INVALID FOR* Priority: D More... On mechanically assisted ventilation (HCC) [Z99*INVALID FOR*06/18/2017 Priority: B More... Acute post-operative pain [G89.18] INVALID FOR* Priority: C More... Atelectasis [J98.11] INVALID FOR* Priority: B More... Hypovolemia [E86.1] INVALID FOR*06/18/2017 Priority: F More... Essential hypertension [I10] INVALID FOR* Priority: C More... Transition of care performed with sharing of cl*INVALID FOR* Priority: Very Severe More... Nicotine use disorder, F17.2 [F17.200] INVALID FOR* QUINTON (obstructive sleep apnea) [G47.33] INVALID FOR* Prescriptions ordered this encounter Disp Refills Start End VARENICLINE 0.5 MG (11)-1 MG (42) TA* 53 t* 0 04/01/2018 Sig: Take 1 tablet (0.5 mg) by mouth once daily for 3 days, then 1 tablet (0.5 mg) twice daily for 4 days, then one tablet (1 mg) twice daily. AMOXICILLIN 500 MG TABLET 20 t* 0 04/01/2018 04/11/2018 Route: ORAL Sig: Take 1 tablet by mouth twice daily for 10 days. CIPROFLOXACIN 0.3 %-DEXAMETHASONE 0.* 5 mL 0 04/01/2018 04/08/2018 Route: LEFT EAR Sig: Use 4 Drops in the left ear twice daily for 7 days. Disposition: Return if symptoms worsen or fail to improve. Follow-up and Disposition History Recorded Encounter Status:Closed by RUBY OLEA on 04/01/18 PROGRESS Observed: 03/10/2018 Status: COMPLETED Source: [place] 2:07 PM [facility] REPOSITORY O ID: [id number] Author: Alicia Martinez Service: (none) Author Type: Physician Type: Progress Notes Filed: 03/15/2018 3:14 PM Note Text: Keily Rasmussen is a 22 year old female who presents for problem visit for irreg menses, would like to conceive. HPI: 22 YOF started menses at age 12. Has been w/ same partner 5 years and no contraception for 3 years. Her partner has 2 children age 4 and 6. She denies h/o STIs. Never been in the past. Menses regular, most months. Last 3-4 days. They're light to medium in flow. They've been like this for several years. Denies dysmenorrhea. No h/o seizure disorder. Denies family h/o for either for congenital abnormalities or syndromes. She works at home, and smokes half a pack per day. She denies using any other drugs or alcohol. She does not take a vitamin. She is interested in stopping smoking but hasn't really made a plan. She denies doing any regular exercise. She states she's been to a dietitian in the past for dietary teaching, but she doesn't like to eat the kinds of foods they instructed her to eat. PAST MEDICAL HISTORY Diagnosis Date - Aortic stenosis s/p repair of a PDA and subvalvular aortic stenosis. Sees Dr. Haider and Dr. Marie - Asthma - Morbid obesity (HCC) - PCOS (polycystic ovarian syndrome) elevated testosterone and elevated insulin - PDA (patent ductus arteriosus) s/p repair age 10 - Tobacco use PAST SURGICAL HISTORY Procedure Laterality Date - PAST SURGICAL HISTORY OF 2005 Repair of a PDA and subvalvular aortic stenosis-childhood - PAST SURGICAL HISTORY OF resection subaortic membrane May 2017 FAMILY HISTORY Problem Relation Age of Onset - COPD Mother - Thyroid Mother - Asthma Mother - Diabetes Father - Heart Father CO - other (Bone Disease) Brother - COPD Sister - Diabetes Brother - Hypertension Maternal Grandmother - COPD Maternal Grandmother - Emphysema Maternal Grandmother - Heart Maternal Grandfather - Hypertension Maternal Grandfather - Cancer Paternal Uncle Social History Marital status: Single Spouse name: Years of education: Number of children: Occupational History Occupation Employer Comment Unemployed Social History Main Topics Smoking status: Current Every Day Smoker Packs/day: 0.50 Years: 2.00 Types: Cigarettes Smokeless tobacco: Never Used Alcohol use: No Drug use: No Sexual activity: Yes Partners with: Male Current Outpatient Prescriptions: omeprazole (PRILOSEC) 20 mg capsule Take 1 capsule by mouth once daily. vit-iron fumarate-fa ( MULTIVITAMINS) 28 mg iron- 800 mcg tab Take 1 tablet by mouth once daily. sertraline (ZOLOFT) 50 mg tablet 1/2 pill daily X 1 week; then increase to a whole pill daily. albuterol HFA (VENTOLIN HFA) 90 mcg/actuation inhaler Inhale 2 Puffs as instructed every 4 hours as needed. nystatin-triamcinolone (MYCOLOG) ointment Apply sparingly to perineum twice daily for irritation/infection. mupirocin (BACTROBAN) 2 % ointment Apply 1 application to affected area twice daily. triamcinolone acetonide (KENALOG) 0.1 % cream Apply 1 application to affected area twice daily. Apply to affected area. acetaminophen (TYLENOL) 325 mg tablet Take 2 tablets by mouth every 6 hours as needed for Pain or Fever. No current facility-administered medications for this visit. Allergies As of Date: 03/10/2018 Allergen Noted Reaction PENICILLINS 11/28/2014 Hives TETANUS AND DIPHTHERIA TOXOIDS, A*04/14/2017 Rash Fully Assessed 03/04/2018 REVIEW OF SYSTEMS Allergies and current medication updated:Yes EXAM: There were no vitals taken for this visit. GENERAL: pleasant, female in no apparent distress HEENT: Normocephalic, atraumatic, mucus membranes moist and no lesions ASSESSMENT AND PLAN: 22-year-old 0 female with multiple medical problems would like to conceive. At this point, I discussed with the patient options for optimizing health before conceiving. She states she's had all her vaccinations but that she never had the chickenpox vaccine or chickenpox. Varicella IgG is ordered along with a rubella IgG to ensure that she is immune. We discussed limiting caffeine exposure. The next steps in a fertility evaluation would be an HSG and semen analysis. Patient can contact our office if she desires to proceed with these. Patient states her menses are regular but light, she also has some increased hair growth on her face and acne on her face and back. Will check androgen levels. Will check a day 21 progesterone. Tobacco use disorder-I discussed with the patient importance of nicotine cessation both for short and long-term health benefits. We discussed increased risk of and 2 neonates and infants living in households were parents smoked. She has no real plan for this, we reviewed some starting steps. In addition under patient instructions I gave her some more information. She should follow up here with her primary care physician when she is ready to proceed with the plan. She has obstructive sleep apnea according to her problem list, and she has not gotten the proper equipment for treatment of this yet. I encouraged her to get this and discussed with her this may help with weight loss, energy levels and even conceiving. Morbid obesity with BMI 47. We discussed importance of regular exercise and healthy diet both for healthy , and for weight loss. At this point, tobacco use and morbid obesity are her to highest priority health problems. I discussed with her the importance of getting these under control before she conceives. I offered her referral to dietitian and/or a weight loss program, patient declines for now. She is welcome to follow-up here as needed. She plans to move out of state in 2 weeks. Majority of this 28 minute appt. spent counseling the patient about the above issues and recommendations. Alicia Martinez MD CNOV Observed: 03/10/2018 Status: COMPLETED Source: [place] 2:00 PM [facility] REPOSITORY Office Visit (WOOB) KEILY RASMUSSEN ([id number]) 1995 F Date Time Provider Department 03/10/18 2:00 PM ALICIA MARTIENZ During your visit today, we recorded the following information about you: Blood pressure Weight Last Period 128/70 138.8 kg 03/08/18 Alicia Martinez MD 03/15/2018 3:14 PM Signed Keily Rasmussen is a 22 year old female who presents for problem visit for irreg menses, would like to conceive. HPI: 22 YOF started menses at age 12. Has been w/ same partner 5 years and no contraception for 3 years. Her partner has 2 children age 4 and 6. She denies h/o STIs. Never been in the past. Menses regular, most months. Last 3-4 days. They're light to medium in flow. They've been like this for several years. Denies dysmenorrhea. No h/o seizure disorder. Denies family h/o for either for congenital abnormalities or syndromes. She works at home, and smokes half a pack per day. She denies using any other drugs or alcohol. She does not take a vitamin. She is interested in stopping smoking but hasn't really made a plan. She denies doing any regular exercise. She states she's been to a dietitian in the past for dietary teaching, but she doesn't like to eat the kinds of foods they instructed her to eat. PAST MEDICAL HISTORY Diagnosis Date - Aortic stenosis s/p repair of a PDA and subvalvular aortic stenosis. Sees Dr. Haider and Dr. Marie - Asthma - Morbid obesity (HCC) - PCOS (polycystic ovarian syndrome) elevated testosterone and elevated insulin - PDA (patent ductus arteriosus) s/p repair age 10 - Tobacco use PAST SURGICAL HISTORY Procedure Laterality Date - PAST SURGICAL HISTORY OF 2005 Repair of a PDA and subvalvular aortic stenosis-childhood - PAST SURGICAL HISTORY OF resection subaortic membrane May 2017 FAMILY HISTORY Problem Relation Age of Onset - COPD Mother - Thyroid Mother - Asthma Mother - Diabetes Father - Heart Father [place] - other (Bone Disease) Brother - COPD Sister - Diabetes Brother - Hypertension Maternal Grandmother - COPD Maternal Grandmother - Emphysema Maternal Grandmother - Heart Maternal Grandfather - Hypertension Maternal Grandfather - Cancer Paternal Uncle Social History Marital status: Single Spouse name: Years of education: Number of children: Occupational History Occupation Employer Comment Unemployed Social History Main Topics Smoking status: Current Every Day Smoker Packs/day: 0.50 Years: 2.00 Types: Cigarettes Smokeless tobacco: Never Used Alcohol use: No Drug use: No Sexual activity: Yes Partners with: Male Current Outpatient Prescriptions: omeprazole (PRILOSEC) 20 mg capsule Take 1 capsule by mouth once daily. vit-iron fumarate-fa ( MULTIVITAMINS) 28 mg iron- 800 mcg tab Take 1 tablet by mouth once daily. sertraline (ZOLOFT) 50 mg tablet 1/2 pill daily X 1 week; then increase to a whole pill daily. albuterol HFA (VENTOLIN HFA) 90 mcg/actuation inhaler Inhale 2 Puffs as instructed every 4 hours as needed. nystatin-triamcinolone (MYCOLOG) ointment Apply sparingly to perineum twice daily for irritation/infection. mupirocin (BACTROBAN) 2 % ointment Apply 1 application to affected area twice daily. triamcinolone acetonide (KENALOG) 0.1 % cream Apply 1 application to affected area twice daily. Apply to affected area. acetaminophen (TYLENOL) 325 mg tablet Take 2 tablets by mouth every 6 hours as needed for Pain or Fever. No current facility-administered medications for this visit. Allergies As of Date: 03/10/2018 Allergen Noted Reaction PENICILLINS 11/28/2014 Hives TETANUS AND DIPHTHERIA TOXOIDS, A*04/14/2017 Rash Fully Assessed 03/04/2018 REVIEW OF SYSTEMS Allergies and current medication updated:Yes EXAM: There were no vitals taken for this visit. GENERAL: pleasant, female in no apparent distress HEENT: Normocephalic, atraumatic, mucus membranes moist and no lesions ASSESSMENT AND PLAN: 22-year-old 0 female with multiple medical problems would like to conceive. At this point, I discussed with the patient options for optimizing health before conceiving. She states she's had all her vaccinations but that she never had the chickenpox vaccine or chickenpox. Varicella IgG is ordered along with a rubella IgG to ensure that she is immune. We discussed limiting caffeine exposure. The next steps in a fertility evaluation would be an HSG and semen analysis. Patient can contact our office if she desires to proceed with these. Patient states her menses are regular but light, she also has some increased hair growth on her face and acne on her face and back. Will check androgen levels. Will check a day 21 progesterone. Tobacco use disorder-I discussed with the patient importance of nicotine cessation both for short and long-term health benefits. We discussed increased risk of and 2 neonates and infants living in households were parents smoked. She has no real plan for this, we reviewed some starting steps. In addition under patient instructions I gave her some more information. She should follow up here with her primary care physician when she is ready to proceed with the plan. She has obstructive sleep apnea according to her problem list, and she has not gotten the proper equipment for treatment of this yet. I encouraged her to get this and discussed with her this may help with weight loss, energy levels and even conceiving. Morbid obesity with BMI 47. We discussed importance of regular exercise and healthy diet both for healthy , and for weight loss. At this point, tobacco use and morbid obesity are her to highest priority health problems. I discussed with her the importance of getting these under control before she conceives. I offered her referral to dietitian and/or a weight loss program, patient declines for now. She is welcome to follow-up here as needed. [place] plans to move out of state in 2 weeks. Majority of this 28 minute appt. spent counseling the patient about the above issues and recommendations. MD Alicia Gonzalez MD 03/10/2018 2:33 PM Signed Based on questions asked during your appointment, you are recognized as a Tobacco User who intends to quit tobacco within the next 30 days (Preparation Stage). Congratulations! Planning to quit tobacco is the first step towards improving your health. Have you set a specific quit date? If not, set a quit date now and write it down. My quit date is . You should also have a specific plan to help you quit tobacco. Consider the following: ? Make a personal pact with yourself to quit and realize the reasons why you want to quit! o List 5 reasons why you want to quit: ? Rubber-band or tape your pack so that it is not as easy to access. o Write down, on a card, the three most important reasons for quitting. o Carry that card with you (or in your cigarette box) from now on. Look at it several times each day. ? Identify barriers or triggers that may cause you to smoke, especially in high risk situations. o ?Who, What, Where, When, and Why?? ? Who: ? What: ? Where: ? When: ? Why: ? Make sure to let your friends and family know that you are quitting smoking, especially if they smoke. ? Understand that withdrawals symptoms or cravings may come, what they are, and be prepared for their occurrence. ? On your quit date, get rid of ALL cigarettes and put away all smoking related objects such as ashtrays. Research shows that a combination of counseling and medication offers the best results for quitting tobacco. For more specific information, download the ?Guide to Quitting Your Tobacco Habit? from www.[facility]f.org/tobaccoguide. To help with your quit plan, make an appointment with one of the specialists in the Tobacco Treatment Center. [facility] For more information, call [phone] To schedule an appointment, call [phone] [email or web address] Email: [facility] Preconception Counseling Caring for your health before you become -- called preconception care -- will help you learn about any risk factors and treat any medical problems that you may have before you become . Planning for your before you conceive will help you make healthy decisions for you and your baby. Pre-conception counseling helps educate women so they can be physically and emotionally prepared - and healthy - for . During a preconception office visit, your health care provider will discuss: [employer] history: previous pregnancies, menstrual history, contraceptive use, sexually transmitted diseases, Pap smears, vaginal infections as well as previous Pap test results. Medical/surgical history: surgeries, transfusions, hospitalizations, pre-existing medical conditions, allergies, current medications (including prescribed and rhwv-biv-sbuilvt medications) Family health history: hypertension, diabetes, twins, genetic factors such as mental retardation, blindness, deafness, congenital anomalies, ethnic-related conditions such as Kev-Sachs, sickle trait/sickle cell, thalassemia Your weight: your health care provider will tell you to try to reach your ideal body weight before becoming . This means losing weight if you are overweight to reduce your risk of high blood pressure complications; or gaining weight if you are underweight to reduce the risk of delivering a low -weight baby. Personal life style factors, as well as your partner's, that may influence : Smoking, drinking alcohol and using recreational drugs are habits that need to be stopped in order for you to have a healthy . Home and workplace environment: possible teratogens and hazards, such as exposure to cat feces, x-rays, lead or solvents. Smoking during affects you and your baby's health before, during and after your baby is born. The nicotine (the addictive substance in cigarettes), carbon monoxide and numerous other poisons you inhale from a cigarette are carried through your bloodstream and go directly to your baby. Smoking wile will: Lower the amount of oxygen available to you and your growing baby Increase your baby's heart rate. Increase the chances of miscarriage and stillbirth. Increase the risk that your baby is born prematurely and/or born with low weight. Increase your baby's risk of developing respiratory problems. There are many smoking cessation programs available in your community to help you quit smoking. Ask your health care provider for more information about these programs. Excessive drinking can lead to Alcohol Syndrome, a pattern of defects that includes mental retardation, as well as cardiovascular;skeletal and facial abnormalities. You may not know if you have a drinking problem. Her are some signs: Drinking alone when you feel angry or sad. Drinking in a pattern (every day or every week at the same time) Planning activities around drinking Drinking to relieve pain or stress Drinking more than you meant to or after you told yourself you wouldn't Drinking to get drunk Thinking a lot about drinking Showing a personality change when you drink. Talk to your health care provider honestly about your use of alcohol. He or she can give you more information and refer you for counseling or treatment, if needed. Exercise Review your exercise program with your health are provider. Generally, you may continue your normal exercise routine throughout unless you are instructed to decrease or modify your activities. Your Diet Your health care provider will talk about your dietary habits, including your consumption of caffeine. To ensure a healthy , you should follow a healthy, well-balanced diet and eat a variety or foods to get all the nutrients you need. Choose foods high in starch and fiber. Make sure you are getting enough vitamins and minerals in your daily diet: eat and drink at least 4 servings of dairy products and calcium-rich foods a day, choose at least one source each of Vitamin C, Vitamin A and folic acid every day. Caffeine consumption: When planning a , it is recommended that you do not have more than 300mg. of caffeine per day (two 5-ounce cups of coffee, three 5-ounce cups of tea or two 12-ounce glasses of caffeinated soda). Remember, chocolate contains caffeine -- the amount of caffeine in a chocolate bar is equal to 1/4 cup of coffee. vitamins: Before considering a , you should begin taking a daily vitamin that contains folic acid. Folic acid has been shown to decrease the risk of having a baby with a neural tube defect, such as spina bifida - a serious condition in which the brain and spinal cord do not form normally. The [employer] recommends taking 400 micrograms of folic acid daily before conception and in early . Many pharmacies sell dtdv-ccq-qaqbkkn vitamins that do not require a prescription. Other components of preconception counseling appointment Your health care provider may also: Perform a physical exam: to evaluate your heart, lungs, breasts, thyroid and abdomen. A pelvic exam may also be performed. Order lab tests: rubella, hepatitis, complete blood count (CBC), HIV, others as indicated Discuss how to chart menstrual cycles to detect ovulation and determine the time when you are most likely to get . Discuss genetic counseling which can help couples become aware of their chances of having a child with a defect. Genetic counseling is advised for women who will be 35 or older when the baby is due, for couples who have already had a child with a defect or couples with a family history of genetic problems, defects or mental retardation. The [facility] 2001,06/27 Referring Provider: SELF [200] Allergies As of Date: 03/10/2018 Noted Allergy Reaction PENICILLINS 11/28/2014 4 - Hives TETANUS AND DIPHTHERIA TOXOIDS, A*04/14/2017 2 - Rash Comments: Local erythema and swelling in the affected arm. Date Reviewed: 03/10/2018 Reviewed by: Rose Marie Higuera Ma - Fully Assessed Reason for Visit: Discussion [813] Cmt: Primary Visit Diagnosis:Irregular menstrual cycle [N92.6] Other Visit Diagnoses:Encounter for preconception consultation [Z31.69] Morbid obesity (HCC) [E66.01] Order(s):VARICELLA ZOSTER IGG [SQVZVG] Order #: [id number] FUTURE RUBELLA IGG AB [SQRUBQNT] Order #: [id number] FUTURE PROGESTERONE BLD [SQPROG] Order #: [id number] FUTURE PROLACTIN BLD [SQPROL] Order #: [id number] FUTURE TESTOSTERONE TOTAL [SQTESTO] Order #: [id number] FUTURE DHEA-S BLD [SQDHEAS] Order #: [id number] FUTURE Prescriptions as of 03/10/2018 Sig: OMEPRAZOLE 20 MG CAPSULE,VANCE* Take 1 capsule by mouth once * VIT NO.95-FERROUS FU* Take 1 tablet by mouth once d* SERTRALINE 50 MG TABLET 1/2 pill daily X 1 week; then* ALBUTEROL SULFATE HFA 90 MCG/* Inhale 2 Puffs as instructed * NYSTATIN-TRIAMCINOLONE 100,00* Apply sparingly to perineum t* TRIAMCINOLONE ACETONIDE 0.1 %* Apply 1 application to affect* Problem List As Of Date 03/10/2018 Noted Resolved Heart valve stenosis [I38] INVALID FOR* Obesity, Class III, BMI 40-49.9 (morbid obesity*INVALID FOR* Hyperinsulinemia [E16.1] INVALID FOR* Adjustment disorder with mixed anxiety and depr*INVALID FOR* Priority: C More... Seasonal allergic rhinitis due to pollen [J30.1]INVALID FOR* Morbid obesity (HCC) [E66.01] Asthma [J45.909] Priority: B More... Aortic stenosis [I35.0] Priority: A More... PCOS (polycystic ovarian syndrome) [E28.2] More... Pre-op testing [Z01.818] INVALID FOR* More... Discharge planning issues [Z02.9] INVALID FOR* Priority: D More... On mechanically assisted ventilation (HCC) [Z99*INVALID FOR*06/18/2017 Priority: B More... Acute post-operative pain [G89.18] INVALID FOR* Priority: C More... Atelectasis [J98.11] INVALID FOR* Priority: B More... Hypovolemia [E86.1] INVALID FOR*06/18/2017 Priority: F More... Essential hypertension [I10] INVALID FOR* Priority: C More... Transition of care performed with sharing of cl*INVALID FOR* Priority: Very Severe More... Nicotine use disorder, F17.2 [F17.200] INVALID FOR* QUINTON (obstructive sleep apnea) [G47.33] INVALID FOR* Other instructions from your clinician: Based on questions asked during your appointment, you are recognized as a Tobacco User who intends to quit tobacco within the next 30 days (Preparation Stage). Congratulations! Planning to quit tobacco is the first step towards improving your health. Have you set a specific quit date? If not, set a quit date now and write it down. My quit date is . You should also have a specific plan to help you quit tobacco. Consider the following: ? Make a personal pact with yourself to quit and realize the reasons why you want to quit! o List 5 reasons why you want to quit: ? Rubber-band or tape your pack so that it is not as easy to access. o Write down, on a card, the three most important reasons for quitting. o Carry that card with you (or in your cigarette box) from now on. Look at it several times each day. ? Identify barriers or triggers that may cause you to smoke, especially in high risk situations. o ?Who, What, Where, When, and Why?? ? Who: ? What: ? Where: ? When: ? Why: ? Make sure to let your friends and family know that you are quitting smoking, especially if they smoke. ? Understand that withdrawals symptoms or cravings may come, what they are, and be prepared for their occurrence. ? On your quit date, get rid of ALL cigarettes and put away all smoking related objects such as ashtrays. Research shows that a combination of counseling and medication offers the best results for quitting tobacco. For more specific information, download the ?Guide to Quitting Your Tobacco Habit? from www.ccf.org/tobaccoguide. To help with your quit plan, make an appointment with one of the specialists in the Tobacco Treatment Center. [facility] For more information, call [phone] To schedule an appointment, call [phone] [email or web address] Email: [facility] Preconception Counseling Caring for your health before you become -- called preconception care -- will help you learn about any risk factors and treat any medical problems that you may have before you become . Planning for your before you conceive will help you make healthy decisions for you and your baby. Pre-conception counseling helps educate women so they can be physically and emotionally prepared - and healthy - for . During a preconception office visit, your health care provider will discuss: [employer] history: previous pregnancies, menstrual history, contraceptive use, sexually transmitted diseases, Pap smears, vaginal infections as well as previous Pap test results. Medical/surgical history: surgeries, transfusions, hospitalizations, pre-existing medical conditions, allergies, current medications (including prescribed and ugco-pso-jndqqmw medications) Family health history: hypertension, diabetes, twins, genetic factors such as mental retardation, blindness, deafness, congenital anomalies, ethnic-related conditions such as Kev-Sachs, sickle trait/sickle cell, thalassemia Your weight: your health care provider will tell you to try to reach your ideal body weight before becoming . This means losing weight if you are overweight to reduce your risk of high blood pressure complications; or gaining weight if you are underweight to reduce the risk of delivering a low -weight baby. Personal life style factors, as well as your partner's, that may influence : Smoking, drinking alcohol and using recreational drugs are habits that need to be stopped in order for you to have a healthy . Home and workplace environment: possible teratogens and hazards, such as exposure to cat feces, x-rays, lead or solvents. Smoking during affects you and your baby's health before, during and after your baby is born. The nicotine (the addictive substance in cigarettes), carbon monoxide and numerous other poisons you inhale from a cigarette are carried through your bloodstream and go directly to your baby. Smoking wile will: Lower the amount of oxygen available to you and your growing baby Increase your baby's heart rate. Increase the chances of miscarriage and stillbirth. Increase the risk that your baby is born prematurely and/or born with low weight. Increase your baby's risk of developing respiratory problems. There are many smoking cessation programs available in your community to help you quit smoking. Ask your health care provider for more information about these programs. Excessive drinking can lead to Alcohol Syndrome, a pattern of defects that includes mental retardation, as well as cardiovascular;skeletal and facial abnormalities. You may not know if you have a drinking problem. Her are some signs: Drinking alone when you feel angry or sad. Drinking in a pattern (every day or every week at the same time) Planning activities around drinking Drinking to relieve pain or stress Drinking more than you meant to or after you told yourself you wouldn't Drinking to get drunk Thinking a lot about drinking Showing a personality change when you drink. Talk to your health care provider honestly about your use of alcohol. He or she can give you more information and refer you for counseling or treatment, if needed. Exercise Review your exercise program with your health are provider. Generally, you may continue your normal exercise routine throughout unless you are instructed to decrease or modify your activities. Your Diet Your health care provider will talk about your dietary habits, including your consumption of caffeine. To ensure a healthy , you should follow a healthy, well-balanced diet and eat a variety or foods to get all the nutrients you need. Choose foods high in starch and fiber. Make sure you are getting enough vitamins and minerals in your daily diet: eat and drink at least 4 servings of dairy products and calcium- rich foods a day, choose at least one source each of Vitamin C, Vitamin A and folic acid every day. Caffeine consumption: When planning a , it is recommended that you do not have more than 300mg. of caffeine per day (two 5-ounce cups of coffee, three 5-ounce cups of tea or two 12-ounce glasses of caffeinated soda). Remember, chocolate contains caffeine -- the amount of caffeine in a chocolate bar is equal to 1/4 cup of coffee. vitamins: Before considering a , you should begin taking a daily vitamin that contains folic acid. Folic acid has been shown to decrease the risk of having a baby with a neural tube defect, such as spina bifida - a serious condition in which the brain and spinal cord do not form normally. The [employer] recommends taking 400 micrograms of folic acid daily before conception and in early . Many pharmacies sell wqrl-lua-yeaqyqj vitamins that do not require a prescription. Other components of preconception counseling appointment Your health care provider may also: Perform a physical exam: to evaluate your heart, lungs, breasts, thyroid and abdomen. A pelvic exam may also be performed. Order lab tests: rubella, hepatitis, complete blood count (CBC), HIV, others as indicated Discuss how to chart menstrual cycles to detect ovulation and determine the time when you are most likely to get . Discuss genetic counseling which can help couples become aware of their chances of having a child with a defect. Genetic counseling is advised for women who will be 35 or older when the baby is due, for couples who have already had a child with a defect or couples with a family history of genetic problems, defects or mental retardation. [facility] 2001,06/27 Medications Discontinued During This Encounter mupirocin (BACTROBAN) 2 % ointment 30 g 0 01/21/2018 03/10/2018 Route: TOPICAL Sig: Apply 1 application to affected area twice daily. Disc: Reason for discontinue is not on file. acetaminophen (TYLENOL) 325 mg tablet 06/21/2017 03/10/2018 Class: OTC Route: ORAL Sig: Take 2 tablets by mouth every 6 hours as needed for Pain or Fever. Patient not taking: Reported on 03/10/2018 Disc: Reason for discontinue is not on file. Encounter Status:Closed by ALICIA MARTINEZ MD on 03/15/18 Observed: 03/04/2018 Status: F Source: [place] THROAT CULT/ROUTINE 10:59 AM [facility] REPOSITORY Culture Result - No beta hemolytic streptococci isolated. Performed By: #### THRCUL #### [facility] [address] [place], [place] [address] CNOV Observed: 03/04/2018 Status: COMPLETED Source: [place] 10:20 AM [facility] REPOSITORY Office Visit (FAMPWS) KEILY RASMUSSEN ([id number]) 1995 F Date Time Provider Department 03/04/18 10:20 AM MELISA BARRIENTOS (JOHN) FAMPWS During your visit today, we recorded the following information about you: Pulse Respiration Blood pressure Weight 64/minute 18/minute 122/60 132.9 kg Melisa Barrientos APRN.CNP 03/04/2018 11:21 AM Signed 03/04/2018 Patient presents with: Abdominal Pain: states cramps but more severe, menses is a week late. Back hurting badley and sore throat SUBJECTIVE: This is a 22 year old that is here today for Above Complaints. ONSET: 1 week ago LOCATION:across lower abdomen- thought possibly cramps since time to start period. DURATION: comes and goes CHARACTERISTICS: cramps and stabbing 0/10 at this time AGGRAVATING FEATURES: laying on stomach ALLEVIATING SYMPTOMS: nothing RADIATION: lower back TIMING: afternnoon Denies Sick contacts, weight loss,fever, chills, rashes, SOB, dyspnea, coughing, wheezing, new chest pain ( has chronic chest pain), vomiting, hematochezia, melena, dysuria, urinary urgency/frequncy, and hematuria.Positive for sore throat, ear pain coughing, nausea, and constipation. Last bowel movement this morning LMP: about 5 weeks ago Possibility of : yes Urine dip shows: Glucose, Urine (mg/dL) Date Value 01/15/2018 neg Bilirubin, Urine (no units) Date Value 01/15/2018 neg Bilirubin, Urine (no units) Date Value 01/15/2018 neg Ketones, Urine (no units) Date Value 01/15/2018 neg Specific [place], Ur (no units) Date Value 01/15/2018 1.020 Hemoglobin/Blood,Ur (no units) Date Value 01/15/2018 neg pH, Arterial (no units) Date Value 06/18/2017 7.38 Protein, Urine (mg/dL) Date Value 01/15/2018 neg Urobilinogen, Urine (EU) Date Value 01/15/2018 normal No components found for: NITR Leukocytes (no units) Date Value 01/15/2018 neg Color/Appearance (comment:) Date Value 01/15/2018 dark yellow clear PAST MEDICAL HISTORY Diagnosis Date - Aortic stenosis s/p repair of a PDA and subvalvular aortic stenosis. Sees Dr. Haider and Dr. Marie - Asthma - Morbid obesity (HCC) - PCOS (polycystic ovarian syndrome) elevated testosterone and elevated insulin - PDA (patent ductus arteriosus) s/p repair age 10 - Tobacco use ALLERGIES Penicillins; Tetanus And Diphtheria Toxoids, Adsorbed, Adult MEDICATIONS Current Outpatient Prescriptions: omeprazole (PRILOSEC) 20 mg capsule Take 1 capsule by mouth once daily. mupirocin (BACTROBAN) 2 % ointment Apply 1 application to affected area twice daily. triamcinolone acetonide (KENALOG) 0.1 % cream Apply 1 application to affected area twice daily. Apply to affected area. vit-iron fumarate-fa ( MULTIVITAMINS) 28 mg iron- 800 mcg tab Take 1 tablet by mouth once daily. sertraline (ZOLOFT) 50 mg tablet 1/2 pill daily X 1 week; then increase to a whole pill daily. nystatin-triamcinolone (MYCOLOG) ointment Apply sparingly to perineum twice daily for irritation/infection. albuterol HFA (VENTOLIN HFA) 90 mcg/actuation inhaler Inhale 2 Puffs as instructed every 4 hours as needed. acetaminophen (TYLENOL) 325 mg tablet Take 2 tablets by mouth every 6 hours as needed for Pain or Fever. No current facility-administered medications for this visit. Medications and allergies reviewed by this provider. SOCIAL HISTORY Social History Marital status: Single Spouse name: Years of education: Number of children: Occupational History Occupation Employer Comment Unemployed Social History Main Topics Smoking status: Current Every Day Smoker Packs/day: 0.50 Years: 2.00 Types: Cigarettes Smokeless tobacco: Never Used Alcohol use: No Drug use: No Sexual activity: Yes Partners with: Male REVIEW OF SYSTEMS All other reviewed and negative other than HPI. OBJECTIVE: BP 122/60 (BP Site: Left Arm, BP Position: Sitting, BP Cuff Size: Large Adult) Pulse 64 Resp 18 Wt 132.9 kg (293 lb 0.6 oz) BMI 45.90 kg/m? . Vital signs reviewed by this provider. APPEARANCE Well appearing, alert, in no acute distress, well- hydrated, well nourished. and Morbidly obese EARS External ears normal, canals clear NOSE/SINUS Nares normal. Septum midline. Mucosa normal. No drainage or sinus tenderness. THROAT normal, no erythema. 1+ bilateral tonsillar hypertrophy NECK Supple, no adenopathy; thyroid symmetric, normal size, no bruits HEART RRR with normal S1 and S2, no murmurs, no gallops, no JVD appreciated LUNG clear to auscultation ABDOMEN bowel sounds normoactive, no bruits, soft, non-tender, non-distended BACK: no pain to palpation. Negative CVA tenderness EXTREMITIES Extremities normal, No deformities, No skin discoloration, No edema and Normal pulses bilaterally. SKIN Skin color, texture, turgor normal, no suspicious rashes or lesions ASSESSMENT/PLAN: 1. Lower abdominal pain - ICD9: 789.09, ICD10: R10.30 (primary diagnosis) Differential Diagnosis includes Gastritis, IBS, Constipation and IBD - no red flag exam findings - red flag symtpoms discusseed - recommend she get testing completed ordered by gastroentrology and follow-up with them - Increase fiber in diet - Treatment for constipation discussed - HCG QUAL UR B/O - follow-up as scheduled 2. Sore throat - ICD9: 462, ICD10: J02.9 - suspect viral - Rapid Strep negative in the office today and Throat culture pending - Discussed supportive care treatment with fluids, rest and analgesia. - The patient may also use OTC cough and cold meds as needed, warm salt water gargles, throat lozenges and/or OTC throat spray as needed and nasal saline gtts and suction prn. - The patient should follow up in 3-5 days if symptoms persist or worsen - Call back if drooling, increased temperature, symptoms of dehydration and/or still sick in one week - RAPID STREP TEST B/O 3. Late period - ICD9: 626.8, ICD10: N92.6 - negative HCG in office today - advised to follow-up with [facility] as recommended at appointment last year as they had done blood work for her PCOs - HCG QUAL UR B/O Melisa Barrientos APRN.CNP Prescription instructions reviewed with patient as applicable. Patient advised if symptoms do not improve or if symptoms worsen sooner, to contact their primary care physician. Potential red flag symptoms discussed with the patient. Reviewed appropriate action plan to take if red flag symptoms occur. Patient agreeable to treatment plan. Melisa Barrientos APRN.CNP 03/04/2018 10:50 AM Signed If you develop fevers, chills, worsening abdominal pain, vomiting go to ER Recommend obtain testing as ordered by gastroenterology Referring Provider: SELF [[id number]] Allergies As of Date: 03/04/2018 Noted Allergy Reaction PENICILLINS 11/28/2014 4 - Hives TETANUS AND DIPHTHERIA TOXOIDS, A*04/14/2017 2 - Rash Comments: Local erythema and swelling in the affected arm. Date Reviewed: 03/04/2018 Reviewed by: Irene Fontenot (Storage Facility Rental Clerk) NEAL Rodriguez - Fully Assessed Reason for Visit: Abdominal Pain [1] Cmt: states cramps but more severe, menses is a week late. Back hurting badley and sore throat Primary Visit Diagnosis:Lower abdominal pain [R10.30] Other Visit Diagnoses:Sore throat [J02.9] Late period [N92.6] Order(s):HCG QUAL UR B/O [[id number]] Order #: [id number] omeprazole (PRILOSEC) 20 mg capsuleTake 1 capsule by mouth once daily.Disp: 30 capsuleRfl: 3 vit-iron fumarate-fa ( MULTIVITAMINS) 28 mg iron- 800 mcg tabTake 1 tablet by mouth once daily.Disp: 30 tabletRfl: 5 sertraline (ZOLOFT) 50 mg tablet1/2 pill daily X 1 week; then increase to a whole pill daily.Disp: 30 tabletRfl: 2 albuterol HFA (VENTOLIN HFA) 90 mcg/actuation inhalerInhale 2 Puffs as instructed every 4 hours as needed.Disp: 1 InhalerRfl: 1 nystatin-triamcinolone (MYCOLOG) ointmentApply sparingly to perineum twice daily for irritation/infection.Disp: 30 gRfl: 0 RAPID STREP TEST B/O [[id number]] Order #: [id number] UA DIP, URINE (POC) [[id number]] Order #: [id number]. #:[id number] THROAT CULTURE [[id number]] Order #: [id number] Prescriptions as of 03/04/2018 Sig: OMEPRAZOLE 20 MG CAPSULE,VANCE* Take 1 capsule by mouth once * VIT NO.95-FERROUS FU* Take 1 tablet by mouth once d* SERTRALINE 50 MG TABLET 1/2 pill daily X 1 week; then* ALBUTEROL SULFATE HFA 90 MCG/* Inhale 2 Puffs as instructed * NYSTATIN-TRIAMCINOLONE 100,00* Apply sparingly to perineum t* MUPIROCIN 2 % TOPICAL OINTMENT Apply 1 application to affect* TRIAMCINOLONE ACETONIDE 0.1 %* Apply 1 application to affect* ACETAMINOPHEN 325 MG TABLET Take 2 tablets by mouth every* Problem List As Of Date 03/04/2018 Noted Resolved Heart valve stenosis [I38] INVALID FOR* Obesity, Class III, BMI 40-49.9 (morbid obesity*INVALID FOR* Hyperinsulinemia [E16.1] INVALID FOR* Adjustment disorder with mixed anxiety and depr*INVALID FOR* Priority: C More... Seasonal allergic rhinitis due to pollen [J30.1]INVALID FOR* Morbid obesity (HCC) [E66.01] Asthma [J45.909] Priority: B More... Aortic stenosis [I35.0] Priority: A More... PCOS (polycystic ovarian syndrome) [E28.2] More... Pre-op testing [Z01.818] INVALID FOR* More... Discharge planning issues [Z02.9] INVALID FOR* Priority: D More... On mechanically assisted ventilation (HCC) [Z99*INVALID FOR*06/18/2017 Priority: B More... Acute post-operative pain [G89.18] INVALID FOR* Priority: C More... Atelectasis [J98.11] INVALID FOR* Priority: B More... Hypovolemia [E86.1] INVALID FOR*06/18/2017 Priority: F More... Essential hypertension [I10] INVALID FOR* Priority: C More... Transition of care performed with sharing of cl*INVALID FOR* Priority: Very Severe More... Nicotine use disorder, F17.2 [F17.200] INVALID FOR* QUINTON (obstructive sleep apnea) [G47.33] INVALID FOR* Other instructions from your clinician: If you develop fevers, chills, worsening abdominal pain, vomiting go to ER Recommend obtain testing as ordered by gastroenterology Prescriptions ordered this encounter Disp Refills Start End OMEPRAZOLE 20 MG CAPSULE,DELAYED REL* 30 c* 3 03/04/2018 Route: ORAL Sig: Take 1 capsule by mouth once daily. VIT NO.95-FERROUS FUMARATE * 30 t* 5 03/04/2018 Route: ORAL Sig: Take 1 tablet by mouth once daily. SERTRALINE 50 MG TABLET 30 t* 2 03/04/2018 Si/2 pill daily X 1 week; then increase to a whole pill daily. ALBUTEROL SULFATE HFA 90 MCG/ACTUATI* 1 In* 1 03/04/2018 Route: INHALATION Sig: Inhale 2 Puffs as instructed every 4 hours as needed. NYSTATIN-TRIAMCINOLONE 100,000 UNIT/* 30 g 0 03/04/2018 Sig: Apply sparingly to perineum twice daily for irritation/infection. Medications Discontinued During This Encounter omeprazole (PRILOSEC) 20 mg capsule 30 c* 3 02/09/2018 03/04/2018 Route: ORAL Sig: Take 1 capsule by mouth once daily. Disc: Reason for discontinue is not on file. vit-iron fumarate-fa (PRENA* 30 t* 5 01/15/2018 03/04/2018 Route: ORAL Sig: Take 1 tablet by mouth once daily. Disc: Reason for discontinue is not on file. sertraline (ZOLOFT) 50 mg tablet 30 t* 2 12/22/2017 03/04/2018 Si/2 pill daily X 1 week; then increase to a whole pill daily. Disc: Reason for discontinue is not on file. albuterol HFA (VENTOLIN HFA) 90 mcg/* 1 In* 1 11/05/2017 03/04/2018 Route: INHALATION Sig: Inhale 2 Puffs as instructed every 4 hours as needed. Disc: Reason for discontinue is not on file. nystatin-triamcinolone (MYCOLOG) oin* 30 g 0 12/22/2017 03/04/2018 Sig: Apply sparingly to perineum twice daily for irritation/infection. Disc: Reason for discontinue is not on file. Follow-up and Disposition History Recorded Encounter Status:Closed by PODLOGARMELISA CNP on 03/04/18 PROGRESS Observed: 03/04/2018 Status: COMPLETED Source: [place] 10:11 AM [facility] [place] REPOSITORY HNO ID: [id number] Author: Melisa He) Podlogar Service: (none) Author Type: Nurse Practitioner Type: Progress Notes Filed: 03/04/2018 11:21 AM Note Text: 03/04/2018 Patient presents with: Abdominal Pain: states cramps but more severe, menses is a week late. Back hurting badley and sore throat SUBJECTIVE: This is a 22 year old that is here today for Above Complaints. ONSET: 1 week ago LOCATION:across lower abdomen- thought possibly cramps since time to start period. DURATION: comes and goes CHARACTERISTICS: cramps and stabbing 0/10 at this time AGGRAVATING FEATURES: laying on stomach ALLEVIATING SYMPTOMS: nothing RADIATION: lower back TIMING: afternnoon Denies Sick contacts, weight loss,fever, chills, rashes, SOB, dyspnea, coughing, wheezing, new chest pain ( has chronic chest pain), vomiting, hematochezia, melena, dysuria, urinary urgency/frequncy, and hematuria.Positive for sore throat, ear pain coughing, nausea, and constipation. Last bowel movement this morning LMP: about 5 weeks ago Possibility of : yes Urine dip shows: Glucose, Urine (mg/dL) Date Value 01/15/2018 neg Bilirubin, Urine (no units) Date Value 01/15/2018 neg Bilirubin, Urine (no units) Date Value 01/15/2018 neg Ketones, Urine (no units) Date Value 01/15/2018 neg Specific [place], Ur (no units) Date Value 01/15/2018 1.020 Hemoglobin/Blood,Ur (no units) Date Value 01/15/2018 neg pH, Arterial (no units) Date Value 06/18/2017 7.38 Protein, Urine (mg/dL) Date Value 01/15/2018 neg Urobilinogen, Urine (EU) Date Value 01/15/2018 normal No components found for: NITR Leukocytes (no units) Date Value 01/15/2018 neg Color/Appearance (comment:) Date Value 01/15/2018 dark yellow clear PAST MEDICAL HISTORY Diagnosis Date - Aortic stenosis s/p repair of a PDA and subvalvular aortic stenosis. Sees Dr. Haider and Dr. Marie - Asthma - Morbid obesity (HCC) - PCOS (polycystic ovarian syndrome) elevated testosterone and elevated insulin - PDA (patent ductus arteriosus) s/p repair age 10 - Tobacco use ALLERGIES Penicillins; Tetanus And Diphtheria Toxoids, Adsorbed, Adult MEDICATIONS Current Outpatient Prescriptions: omeprazole (PRILOSEC) 20 mg capsule Take 1 capsule by mouth once daily. mupirocin (BACTROBAN) 2 % ointment Apply 1 application to affected area twice daily. triamcinolone acetonide (KENALOG) 0.1 % cream Apply 1 application to affected area twice daily. Apply to affected area. vit-iron fumarate-fa ( MULTIVITAMINS) 28 mg iron- 800 mcg tab Take 1 tablet by mouth once daily. sertraline (ZOLOFT) 50 mg tablet 1/2 pill daily X 1 week; then increase to a whole pill daily. nystatin-triamcinolone (MYCOLOG) ointment Apply sparingly to perineum twice daily for irritation/infection. albuterol HFA (VENTOLIN HFA) 90 mcg/actuation inhaler Inhale 2 Puffs as instructed every 4 hours as needed. acetaminophen (TYLENOL) 325 mg tablet Take 2 tablets by mouth every 6 hours as needed for Pain or Fever. No current facility-administered medications for this visit. Medications and allergies reviewed by this provider. SOCIAL HISTORY Social History Marital status: Single Spouse name: Years of education: Number of children: Occupational History Occupation Employer Comment Unemployed Social History Main Topics Smoking status: Current Every Day Smoker Packs/day: 0.50 Years: 2.00 Types: Cigarettes Smokeless tobacco: Never Used Alcohol use: No Drug use: No Sexual activity: Yes Partners with: Male REVIEW OF SYSTEMS All other reviewed and negative other than HPI. OBJECTIVE: BP 122/60 (BP Site: Left Arm, BP Position: Sitting, BP Cuff Size: Large Adult) Pulse 64 Resp 18 Wt 132.9 kg (293 lb 0.6 oz) BMI 45.90 kg/m? . Vital signs reviewed by this provider. APPEARANCE Well appearing, alert, in no acute distress, well-hydrated, well nourished. and Morbidly obese EARS External ears normal, canals clear NOSE/SINUS Nares normal. Septum midline. Mucosa normal. No drainage or sinus tenderness. THROAT normal, no erythema. 1+ bilateral tonsillar hypertrophy NECK Supple, no adenopathy; thyroid symmetric, normal size, no bruits HEART RRR with normal S1 and S2, no murmurs, no gallops, no JVD appreciated LUNG clear to auscultation ABDOMEN bowel sounds normoactive, no bruits, soft, non-tender, non-distended BACK: no pain to palpation. Negative CVA tenderness EXTREMITIES Extremities normal, No deformities, No skin discoloration, No edema and Normal pulses bilaterally. SKIN Skin color, texture, turgor normal, no suspicious rashes or lesions ASSESSMENT/PLAN: 1. Lower abdominal pain - ICD9: 789.09, ICD10: R10.30 (primary diagnosis) Differential Diagnosis includes Gastritis, IBS, Constipation and IBD - no red flag exam findings - red flag symtpoms discusseed - recommend she get testing completed ordered by gastroentrology and follow-up with them - Increase fiber in diet - Treatment for constipation discussed - HCG QUAL UR B/O - follow-up as scheduled 2. Sore throat - ICD9: 462, ICD10: J02.9 - suspect viral - Rapid Strep negative in the office today and Throat culture pending - Discussed supportive care treatment with fluids, rest and analgesia. - The patient may also use OTC cough and cold meds as needed, warm salt water gargles, throat lozenges and/or OTC throat spray as needed and nasal saline gtts and suction prn. - The patient should follow up in 3-5 days if symptoms persist or worsen - Call back if drooling, increased temperature, symptoms of dehydration and/or still sick in one week - RAPID STREP TEST B/O 3. Late period - ICD9: 626.8, ICD10: N92.6 - negative HCG in office today - advised to follow-up with [facility] as recommended at appointment last year as they had done blood work for her PCOs - HCG QUAL UR B/O Melisa Barrientos APRN.FLOUR TESTER Prescription instructions reviewed with patient as applicable. Patient advised if symptoms do not improve or if symptoms worsen sooner, to contact their primary care physician. Potential red flag symptoms discussed with the patient. Reviewed appropriate action plan to take if red flag symptoms occur. Patient agreeable to treatment plan. CNOV Observed: 02/09/2018 Status: COMPLETED Source: [place] 2:20 PM [facility] REPOSITORY Office Visit (FAMPWS) KEILY RASMUSSEN ([id number]) 1995 F Date Time Provider Department 02/09/18 2:20 PM KOBE VELAZQUEZ) FAMPWS During your visit today, we recorded the following information about you: Temperature Pulse Respiration Blood pressure 98.3 degrees 64/minute 14/minute 108/78 Weight 136.5 kg RUBY VELAZQUEZ PA-C 02/09/2018 2:30 PM Signed Chief Complaint Patient presents with: bumps: patient is here for bumps all over; itchy since Friday HPI Keilynico Rasmussen is a 22 year old female who presents here today for Above Complaints.. Rash started on 02/06. Located on arms, trunk and legs. Pruritic Fever 1 day prior Denies other URI symptoms Has had improve. Used benadryl but didn't help with the symptoms. No one else at home with similar rash. Appointment initially made for chest pain but patient reports that this is not her concern. Past medical history, appointments, medications, allergies reviewed. Previous Medical History PAST MEDICAL HISTORY Diagnosis Date - Aortic stenosis s/p repair of a PDA and subvalvular aortic stenosis. Sees Dr. Haider and Dr. Marie - Asthma - Morbid obesity (HCC) - PCOS (polycystic ovarian syndrome) elevated testosterone and elevated insulin - PDA (patent ductus arteriosus) s/p repair age 10 - Tobacco use Previous Surgical History PAST SURGICAL HISTORY Procedure Laterality Date - PAST SURGICAL HISTORY OF 2005 Repair of a PDA and subvalvular aortic stenosis-childhood - PAST SURGICAL HISTORY OF resection subaortic membrane May 2017 Family History FAMILY HISTORY Problem Relation Age of Onset - COPD Mother - Thyroid Mother - Asthma Mother - Diabetes Father - Heart Father [place] - other (Bone Disease) Brother - COPD Sister - Diabetes Brother - Hypertension Maternal Grandmother - COPD Maternal Grandmother - Emphysema Maternal Grandmother - Heart Maternal Grandfather - Hypertension Maternal Grandfather - Cancer Paternal Uncle Patient Allergies ALLERGIES Allergen Reactions - Penicillins Hives - Tetanus And Diphthe* Rash Local erythema and swelling in the affected arm. Current Medications Current Outpatient Prescriptions on File Prior to Visit: omeprazole (PRILOSEC) 20 mg capsule Take 1 capsule by mouth once daily. vit-iron fumarate-fa ( MULTIVITAMINS) 28 mg iron- 800 mcg tab Take 1 tablet by mouth once daily. albuterol HFA (VENTOLIN HFA) 90 mcg/actuation inhaler Inhale 2 Puffs as instructed every 4 hours as needed. mupirocin (BACTROBAN) 2 % ointment Apply 1 application to affected area twice daily. triamcinolone acetonide (KENALOG) 0.1 % cream Apply 1 application to affected area twice daily. Apply to affected area. sertraline (ZOLOFT) 50 mg tablet 1/2 pill daily X 1 week; then increase to a whole pill daily. nystatin-triamcinolone (MYCOLOG) ointment Apply sparingly to perineum twice daily for irritation/infection. acetaminophen (TYLENOL) 325 mg tablet Take 2 tablets by mouth every 6 hours as needed for Pain or Fever. No current facility-administered medications on file prior to visit. Social History Social History Marital status: Single Spouse name: Years of education: Number of children: Occupational History Occupation Employer Comment Unemployed Social History Main Topics Smoking status: Current Every Day Smoker Packs/day: 0.50 Years: 2.00 Types: Cigarettes Smokeless tobacco: Never Used Alcohol use: No Drug use: No Sexual activity: Yes Partners with: Male Review of Symptoms REVIEW OF SYSTEMS See hpi EXAM: BP 108/78 (BP Site: Left Arm, BP Position: Sitting, BP Cuff Size: Large Adult) Pulse 64 Temp 36.8 ?C (98.3 ?F) (Tympanic) Resp 14 Wt (!) 136.5 kg (301 lb) LMP 01/31/2018 (Exact Date) BMI 47.14 kg/m? General Appearance: Well appearing, alert, in no acute distress, well-hydrated, well nourished.. Skin: small isolated and scattered papules on legs, arms, and abdomen. No vesicles. No lesions near mouth. Oropharynx: Lips, mucosa, and tongue normal, teeth and gums normal, oropharynx normal. Health Maintenance List MENINGOCOCCAL CONJUGATE(1 of 1 - 2-dose series) due on 2013 BP CONTROLLED (<130/80) due on 2015 HPV VACCINE(2 - Female 3-dose series) due on 07/25/2017 GC (GONORRHEA) SCREENING (18-24) due on 12/22/2018 CHLAMYDIA SCREENING (18-24) due on 12/22/2018 ANNUAL PCP TEAM CHRONIC DISEASE VISIT due on 01/15/2019 DTAP,TDAP,TD(2 - Td) due on 04/11/2027 ONE PNEUMOVAX PRIOR TO AGE 65 Completed INFLUENZA Completed Data reviewed N/a ASSESSMENT/PLAN: 1. Skin eruption - ICD9: 782.1, ICD10: R21 Unknown etiology. Possibly allergic reaction vs viral illness Will start steroid taper Follow up as needed. RUBY VELAZQUEZ PA-C Referring Provider: NO PCP [[id number]] Allergies As of Date: 02/09/2018 Noted Allergy Reaction PENICILLINS 11/28/2014 4 - Hives TETANUS AND DIPHTHERIA TOXOIDS, A*04/14/2017 2 - Rash Comments: Local erythema and swelling in the affected arm. Date Reviewed: 02/09/2018 Reviewed by: Shonna Pollard Ma - Fully Assessed Reason for Visit: bumps [Other] Cmt: patient is here for bumps all over; itchy since Friday Primary Visit Diagnosis:Skin eruption [R21] Order(s):methylPREDNISolone (MEDROL, DERREK,) 4 mg Dose-PackFollow dosing instructions, take with food.Disp: 1 PackageRfl: 0 Prescriptions as of 02/09/2018 Sig: OMEPRAZOLE 20 MG CAPSULE,VANCE* Take 1 capsule by mouth once * VIT NO.95-FERROUS FU* Take 1 tablet by mouth once d* ALBUTEROL SULFATE HFA 90 MCG/* Inhale 2 Puffs as instructed * METHYLPREDNISOLONE 4 MG TABLE* Follow dosing instructions, t* MUPIROCIN 2 % TOPICAL OINTMENT Apply 1 application to affect* TRIAMCINOLONE ACETONIDE 0.1 %* Apply 1 application to affect* SERTRALINE 50 MG TABLET 1/2 pill daily X 1 week; then* NYSTATIN-TRIAMCINOLONE 100,00* Apply sparingly to perineum t* ACETAMINOPHEN 325 MG TABLET Take 2 tablets by mouth every* Problem List As Of Date 02/09/2018 Noted Resolved Heart valve stenosis [I38] INVALID FOR* Obesity, Class III, BMI 40-49.9 (morbid obesity*INVALID FOR* Hyperinsulinemia [E16.1] INVALID FOR* Adjustment disorder with mixed anxiety and depr*INVALID FOR* Priority: C More... Seasonal allergic rhinitis due to pollen [J30.1]INVALID FOR* Morbid obesity (HCC) [E66.01] Asthma [J45.909] Priority: B More... Aortic stenosis [I35.0] Priority: A More... PCOS (polycystic ovarian syndrome) [E28.2] More... Pre-op testing [Z01.818] INVALID FOR* More... Discharge planning issues [Z02.9] INVALID FOR* Priority: D More... On mechanically assisted ventilation (HCC) [Z99*INVALID FOR*06/18/2017 Priority: B More... Acute post-operative pain [G89.18] INVALID FOR* Priority: C More... Atelectasis [J98.11] INVALID FOR* Priority: B More... Hypovolemia [E86.1] INVALID FOR*06/18/2017 Priority: F More... Essential hypertension [I10] INVALID FOR* Priority: C More... Transition of care performed with sharing of cl*INVALID FOR* Priority: Very Severe More... Nicotine use disorder, F17.2 [F17.200] INVALID FOR* QUINTON (obstructive sleep apnea) [G47.33] INVALID FOR* Prescriptions ordered this encounter Disp Refills Start End METHYLPREDNISOLONE 4 MG TABLETS IN A* 1 Pa* 0 02/09/2018 02/15/2018 Sig: Follow dosing instructions, take with food. Encounter Status:Closed by RUBY OLEA on 02/09/18 PROGRESS Observed: 02/09/2018 Status: COMPLETED Source: [place] 2:09 PM [facility] [place] REPOSITORY O ID: [id number] Author: Medardo Velazquez Service: (none) Author Type: Physician Head Of Digital Type: Progress Notes Filed: 02/09/2018 2:30 PM Note Text: Chief Complaint Patient presents with: bumps: patient is here for bumps all over; itchy since Friday HPI Keily Rasmussen is a 22 year old female who presents here today for Above Complaints.. Rash started on 02/06. Located on arms, trunk and legs. Pruritic Fever 1 day prior Denies other URI symptoms Has had improve. Used benadryl but didn't help with the symptoms. No one else at home with similar rash. Appointment initially made for chest pain but patient reports that this is not her concern. Past medical history, appointments, medications, allergies reviewed. Previous Medical History PAST MEDICAL HISTORY Diagnosis Date - Aortic stenosis s/p repair of a PDA and subvalvular aortic stenosis. Sees Dr. Haider and Dr. Marie - Asthma - Morbid obesity (HCC) - PCOS (polycystic ovarian syndrome) elevated testosterone and elevated insulin - PDA (patent ductus arteriosus) s/p repair age 10 - Tobacco use Previous Surgical History PAST SURGICAL HISTORY Procedure Laterality Date - PAST SURGICAL HISTORY OF 2005 Repair of a PDA and subvalvular aortic stenosis-childhood - PAST SURGICAL HISTORY OF resection subaortic membrane May 2017 Family History FAMILY HISTORY Problem Relation Age of Onset - COPD Mother - Thyroid Mother - Asthma Mother - Diabetes Father - Heart Father [place] - other (Bone Disease) Brother - COPD Sister - Diabetes Brother - Hypertension Maternal Grandmother - COPD Maternal Grandmother - Emphysema Maternal Grandmother - Heart Maternal Grandfather - Hypertension Maternal Grandfather - Cancer Paternal Uncle Patient Allergies ALLERGIES Allergen Reactions - Penicillins Hives - Tetanus And Diphthe* Rash Local erythema and swelling in the affected arm. Current Medications Current Outpatient Prescriptions on File Prior to Visit: omeprazole (PRILOSEC) 20 mg capsule Take 1 capsule by mouth once daily. vit-iron fumarate-fa ( MULTIVITAMINS) 28 mg iron- 800 mcg tab Take 1 tablet by mouth once daily. albuterol HFA (VENTOLIN HFA) 90 mcg/actuation inhaler Inhale 2 Puffs as instructed every 4 hours as needed. mupirocin (BACTROBAN) 2 % ointment Apply 1 application to affected area twice daily. triamcinolone acetonide (KENALOG) 0.1 % cream Apply 1 application to affected area twice daily. Apply to affected area. sertraline (ZOLOFT) 50 mg tablet 1/2 pill daily X 1 week; then increase to a whole pill daily. nystatin-triamcinolone (MYCOLOG) ointment Apply sparingly to perineum twice daily for irritation/infection. acetaminophen (TYLENOL) 325 mg tablet Take 2 tablets by mouth every 6 hours as needed for Pain or Fever. No current facility-administered medications on file prior to visit. Social History Social History Marital status: Single Spouse name: Years of education: Number of children: Occupational History Occupation Employer Comment Unemployed Social History Main Topics Smoking status: Current Every Day Smoker Packs/day: 0.50 Years: 2.00 Types: Cigarettes Smokeless tobacco: Never Used Alcohol use: No Drug use: No Sexual activity: Yes Partners with: Male Review of Symptoms REVIEW OF SYSTEMS See hpi EXAM: BP 108/78 (BP Site: Left Arm, BP Position: Sitting, BP Cuff Size: Large Adult) Pulse 64 Temp 36.8 ?C (98.3 ?F) (Tympanic) Resp 14 Wt (!) 136.5 kg (301 lb) LMP 01/31/2018 (Exact Date) BMI 47.14 kg/m? General Appearance: Well appearing, alert, in no acute distress, well-hydrated, well nourished.. Skin: small isolated and scattered papules on legs, arms, and abdomen. No vesicles. No lesions near mouth. Oropharynx: Lips, mucosa, and tongue normal, teeth and gums normal, oropharynx normal. Health Maintenance List MENINGOCOCCAL CONJUGATE(1 of 1 - 2-dose series) due on 2013 BP CONTROLLED (<130/80) due on 2015 HPV VACCINE(2 - Female 3-dose series) due on 07/25/2017 GC (GONORRHEA) SCREENING (18-24) due on 12/22/2018 CHLAMYDIA SCREENING (18-24) due on 12/22/2018 ANNUAL PCP TEAM CHRONIC DISEASE VISIT due on 01/15/2019 DTAP,TDAP,TD(2 - Td) due on 04/11/2027 ONE PNEUMOVAX PRIOR TO AGE 65 Completed INFLUENZA Completed Data reviewed N/a ASSESSMENT/PLAN: 1. Skin eruption - ICD9: 782.1, ICD10: R21 Unknown etiology. Possibly allergic reaction vs viral illness Will start steroid taper Follow up as needed. RUBY VELAZQUEZ PA-C HISTORY PHYSICAL Observed: 02/09/2018 Status: COMPLETED Source: [place] 1:04 PM [facility] REPOSITORY HNO ID: [id number] Author: Gayle Mccartney Service: (none) Author Type: Nurse Practitioner Type: HANDP Filed: 02/09/2018 4:47 PM Note Text: Keily Rasmussen a 22 year old female who is a consultation requested by Dr. Jos Barnes for an opinion regarding generalized abdominal pain. My final recommendations will be communicated back to the requesting physician by way of shared Medical record. The patient has not been seen previously. The patient denies a family history of colon cancer. The patient was seen by Dr. Barnes on 01/15/18, leading to this consultation. That note has been reviewed and part as follows: C/o intermittent mid abdominal pain which started 3 days ago. Described as stabbing pain without radiation, currently 0/10. Pain occurs when she bends. Treated with tylenol OTC which did not help with pain. Feels like pain has not change much over the last 3 days. Has had 4 episodes of nausea and vomiting without blood. Admits to tactile fever, watery diarrhea yesterday and constipation today. Has had blood with stool whenever she has hard BM without pain. States she gets a large amount of blood on toilet paper and some blood in the bowl around the stool. Denies lightheadedness, syncope, SOB. Objective: Abdomen: Abdomen soft. Bowel sounds normal. No masses, organomegaly, Negative CVA tenderness, Positive findings: tenderness mild LUQ and LLQ without guarding or rebound. Rectal: Negative findings: anal sphincter tone normal, Positive findings: small fleshy hemorrhoid at 9 o'clock, pain at 12o'clock with digital exam. No internal hemorrhoid of fissure noted. Component Latest Ref Rng AND Units 01/15/2018 , Urine neg - pos neg Quality Check yes/no Yes Component Latest Ref Rng AND Units 01/15/2018 WBC 3.70 - 11.00 k/uL 10.62 RBC 3.90 - 5.20 m/uL 5.41 (H) Hemoglobin 11.5 - 15.5 g/dL 13.3 Hematocrit 36.0 - 46.0 % 43.8 MCV 80.0 - 100.0 fL 81.0 MCH 26.0 - 34.0 pG 24.6 (L) MCHC 30.5 - 36.0 g/dL 30.4 (L) RDW-CV 11.5 - 15.0 % 16.1 (H) Platelet Count 150 - 400 k/uL 356 MPV 9.0 - 12.7 fL 10.0 Neut% % 60.9 Abs Neut (ANC) 1.45 - 7.50 k/uL 6.46 Lymph% % 25.4 Abs Lymph 1.00 - 4.00 k/uL 2.70 [place]% % 8.5 Abs [place] <0.87 k/uL 0.90 (H) Eosin% % 4.1 Abs Eosin <0.46 k/uL 0.44 Baso% % 1.1 Abs Baso <0.11 k/uL 0.12 (H) Nucleated Reds 0 /100 WBC 0.0 Absolute nRBC <0.01 k/uL <0.01 Diff Type Auto Diff Component Latest Ref Rng AND Units 01/15/2018 Protein, Total 6.3 - 8.0 g/dL 7.3 Albumin 3.9 - 4.9 g/dL 3.9 Calcium 8.5 - 10.2 mg/dL 9.5 Bilirubin, Total 0.2 - 1.3 mg/dL 0.2 Alkaline Phosphatase 32 - 117 U/L 95 AST 13 - 35 U/L 23 Glucose 74 - 99 mg/dL 79 BUN 7 - 21 mg/dL 7 Creatinine 0.58 - 0.96 mg/dL 0.60 Sodium 136 - 144 mmol/L 137 Potassium 3.7 - 5.1 mmol/L 4.3 Chloride 97 - 105 mmol/L 99 CO2 22 - 30 mmol/L 23 Anion Gap 9 - 18 mmol/L 15 ALT 7 - 38 U/L 24 eGFR- >60 eGFR-All Other Races . >60 Lipase 16 - 61 U/L 15 (L) Component Latest Ref Rng AND Units 01/15/2018 WSR 0 - 20 mm/hr 15 CRP <0.9 mg/dL 1.4 (H) Presenting complaint: The patient presents today stating I went to a stomach doctor before and had a camera down my throat and was told I have a lazy stomach. This was 4-5 years, while living in [place]. The patient tells me now I am starting to feel like throw up wants to come up, but it doesn't. Not taking anything for it now, but had been on prescription back 4-5 years ago. The patient reports her bowel routine as once a day, if not having the runs. She despribes an episode of diarrhea as urgency every five minutes, for about 30 minutes, then I'm fine the rest of the day. No specific triggers. The patient might see blood with hard stool. The last time was about 2 days ago. She tells me that she has to strain every time, even with diarrhea. The patient tells me that she doesn't feel hungry until 2- 3 in the afternoon. She tells me she feels queasy until then. but then, I can eat until midnight, and still feel hungry. REVIEW OF SYSTEMS: GENERAL:Weight varies 4-5 pounds. Intermittent low grade fevers. RESPIRATORY: Reports a history of asthma. CARDIOVASCULAR: Positive for 2 heart surgeries. First in 2005 - due to PDA. Revision 06/17/17. Sees Dr. Haider. GI: The patient states that her appetite has been adequate. She does not get hungry. There has been some nausea, some vomiting. She denies dysphagia and denies odynophagia. There has been indigestion with heartburn. There has not been regurgitation. Bowel habits have been irregular. There has been diarrhea. There has partially been constipation. The patient admits to rectal bleeding. There has not been melena. Intermittent generalized abdominal pain. TEST INSPECTION ENGINEER: Negative for abnormal vaginal bleeding, abnormal vaginal discharge. LMP: 01/31/18. PSYCH: Positive for depression: Taking Zoloft. not as effective as people say it is HEMATOLOGY/LYMPHOLOGY Negative for prolonged bleeding, bruising easily or swollen nodes ENDOCRINE: Negative for diabetes or thyroid. NEURO: Reports really bad headaches almost every two days. All other reviewed and negative other than HPI. PAST MEDICAL HISTORY Diagnosis Date - Aortic stenosis s/p repair of a PDA and subvalvular aortic stenosis. Sees Dr. Haider and Dr. Marie - Asthma - Morbid obesity (HCC) - PCOS (polycystic ovarian syndrome) elevated testosterone and elevated insulin - PDA (patent ductus arteriosus) s/p repair age 10 - Tobacco use PAST SURGICAL HISTORY Procedure Laterality Date - PAST SURGICAL HISTORY OF Repair of a PDA and subvalvular aortic stenosis-childhood FAMILY HISTORY Problem Relation Age of Onset - COPD Mother - Thyroid Mother - Asthma Mother - Diabetes Father - Heart Father [place] - other (Bone Disease) Brother - COPD Sister - Diabetes Brother - Hypertension Maternal Grandmother - COPD Maternal Grandmother - Emphysema Maternal Grandmother - Heart Maternal Grandfather - Hypertension Maternal Grandfather - Cancer Paternal Uncle Current Outpatient Prescriptions: mupirocin (BACTROBAN) 2 % ointment Apply 1 application to affected area twice daily. Disp: 30 g Rfl: 0 triamcinolone acetonide (KENALOG) 0.1 % cream Apply 1 application to affected area twice daily. Apply to affected area. Disp: 85.2 g Rfl: 0 vit-iron fumarate-fa ( MULTIVITAMINS) 28 mg iron- 800 mcg tab Take 1 tablet by mouth once daily. Disp: 30 tablet Rfl: 5 sertraline (ZOLOFT) 50 mg tablet 1/2 pill daily X 1 week; then increase to a whole pill daily. Disp: 30 tablet Rfl: 2 nystatin-triamcinolone (MYCOLOG) ointment Apply sparingly to perineum twice daily for irritation/infection. Disp: 30 g Rfl: 0 albuterol HFA (VENTOLIN HFA) 90 mcg/actuation inhaler Inhale 2 Puffs as instructed every 4 hours as needed. Disp: 1 Inhaler Rfl: 1 acetaminophen (TYLENOL) 325 mg tablet Take 2 tablets by mouth every 6 hours as needed for Pain or Fever. Disp: Rfl: No current facility-administered medications for this visit. SOCIAL HISTORY: Patient is single and lives with her mother. She smokes 1/2 ppd and reports her alcohol use as never. PHYSICAL EXAMINATION: Blood pressure 135/83, pulse 76, height 170.2 cm (5' 7), weight (!) 137.9 kg (304 lb), last menstrual period 01/31/2018. General Appearance: Well appearing, alert, in no acute distress, well-hydrated, well nourished. Skin: Skin color, texture, turgor normal, no suspicious rashes or lesions. Head: Normocephalic, no masses, lesions or abnormalities. Eyes: Anicteric sclera. Pupils are equally round and reactive to light. Extraocular movements are intact. Neck: Supple, no adenopathy; thyroid symmetric, normal size. Lungs: Lungs clear to auscultation. No wheezing, rhonchi, rales. Heart: RRR with soft ejection murmur. Abdomen: Abdomen soft, non-tender. Bowel sounds normal. No masses, organomegaly. Extremities: No deformities, edema, skin discoloration, clubbing or cyanosis. Peripheral Pulses: Normal. Neurologic: Gait normal. Reflexes normal and symmetric. Sensation grossly intact. Impression: nausea - probable gastroparesis 2)funtional bowel disorder. external hemorrhoid - need to keep stool soft. Plan: Gastric emptying study and RUQ US. Start omeprazole 20mg daily. Further plan based on the results. Recommended Benefiber daily. Consider Miralax. Consider procedures. I have personally interviewed and examined this patient. I have reviewed the information that the MA entered for this encounter. I spent 30 minutes in the visit, with greater than 50% of the total byar-gf-tclc time of the visit in counseling and coordination of care. Gayle Mccartney RN APRN.JOHN CNOV Observed: 02/09/2018 Status: COMPLETED Source: [place] 12:40 PM [facility] REPOSITORY [facility] KEILY RASMUSSEN ([id number]) 1995 F Date Time Provider Department 02/09/18 12:40 PM GAYLE MCCARTNEY (TECHNICAL SUPPORT ASSISTANT) [facility] During your visit today, we recorded the following information about you: Pulse Blood pressure Weight Height 76/minute 135/83 137.9 kg 1.702 m Last Period 01/31/18 Gayle Mccartney RN APRN.FLOUR TESTER 02/09/2018 4:47 PM Signed Keily Rasmussen a 22 year old female who is a consultation requested by Dr. Jos Barnes for an opinion regarding generalized abdominal pain. My final recommendations will be communicated back to the requesting physician by way of shared Medical record. The patient has not been seen previously. The patient denies a family history of colon cancer. The patient was seen by Dr. Barnes on 01/15/18, leading to this consultation. That note has been reviewed and part as follows: C/o intermittent mid abdominal pain which started 3 days ago. Described as stabbing pain without radiation, currently 0/10. Pain occurs when she bends. Treated with tylenol OTC which did not help with pain. Feels like pain has not change much over the last 3 days. Has had 4 episodes of nausea and vomiting without blood. Admits to tactile fever, watery diarrhea yesterday and constipation today. Has had blood with stool whenever she has hard BM without pain. States she gets a large amount of blood on toilet paper and some blood in the bowl around the stool. Denies lightheadedness, syncope, SOB. Objective: Abdomen: Abdomen soft. Bowel sounds normal. No masses, organomegaly, Negative CVA tenderness, Positive findings: tenderness mild LUQ and LLQ without guarding or rebound. Rectal: Negative findings: anal sphincter tone normal, Positive findings: small fleshy hemorrhoid at 9 o'clock, pain at 12o'clock with digital exam. No internal hemorrhoid of fissure noted. Component Latest Ref Rng AND Units 01/15/2018 , Urine neg - pos neg Quality Check yes/no Yes Component Latest Ref Rng AND Units 01/15/2018 WBC 3.70 - 11.00 k/uL 10.62 RBC 3.90 - 5.20 m/uL 5.41 (H) Hemoglobin 11.5 - 15.5 g/dL 13.3 Hematocrit 36.0 - 46.0 % 43.8 MCV 80.0 - 100.0 fL 81.0 MCH 26.0 - 34.0 pG 24.6 (L) MCHC 30.5 - 36.0 g/dL 30.4 (L) RDW-CV 11.5 - 15.0 % 16.1 (H) Platelet Count 150 - 400 k/uL 356 MPV 9.0 - 12.7 fL 10.0 Neut% % 60.9 Abs Neut (ANC) 1.45 - 7.50 k/uL 6.46 Lymph% % 25.4 Abs Lymph 1.00 - 4.00 k/uL 2.70 [place]% % 8.5 Abs [place] <0.87 k/uL 0.90 (H) Eosin% % 4.1 Abs Eosin <0.46 k/uL 0.44 Baso% % 1.1 Abs Baso <0.11 k/uL 0.12 (H) Nucleated Reds 0 /100 WBC 0.0 Absolute nRBC <0.01 k/uL <0.01 Diff Type Auto Diff Component Latest Ref Rng AND Units 01/15/2018 Protein, Total 6.3 - 8.0 g/dL 7.3 Albumin 3.9 - 4.9 g/dL 3.9 Calcium 8.5 - 10.2 mg/dL 9.5 Bilirubin, Total 0.2 - 1.3 mg/dL 0.2 Alkaline Phosphatase 32 - 117 U/L 95 AST 13 - 35 U/L 23 Glucose 74 - 99 mg/dL 79 BUN 7 - 21 mg/dL 7 Creatinine 0.58 - 0.96 mg/dL 0.60 Sodium 136 - 144 mmol/L 137 Potassium 3.7 - 5.1 mmol/L 4.3 Chloride 97 - 105 mmol/L 99 CO2 22 - 30 mmol/L 23 Anion Gap 9 - 18 mmol/L 15 ALT 7 - 38 U/L 24 eGFR- >60 eGFR-All Other Races . >60 Lipase 16 - 61 U/L 15 (L) Component Latest Ref Rng AND Units 01/15/2018 WSR 0 - 20 mm/hr 15 CRP <0.9 mg/dL 1.4 (H) Presenting complaint: The patient presents today stating I went to a stomach doctor before and had a camera down my throat and was told I have a lazy stomach. This was 4-5 years, while living in [place]. The patient tells me now I am starting to feel like throw up wants to come up, but it doesn't. Not taking anything for it now, but had been on prescription back 4-5 years ago. The patient reports her bowel routine as once a day, if not having the runs. She despribes an episode of diarrhea as urgency every five minutes, for about 30 minutes, then I'm fine the rest of the day. No specific triggers. The patient might see blood with hard stool. The last time was about 2 days ago. She tells me that she has to strain every time, even with diarrhea. The patient tells me that she doesn't feel hungry until 2- 3 in the afternoon. She tells me she feels queasy until then. but then, I can eat until midnight, and still feel hungry. REVIEW OF SYSTEMS: GENERAL:Weight varies 4-5 pounds. Intermittent low grade fevers. RESPIRATORY: Reports a history of asthma. CARDIOVASCULAR: Positive for 2 heart surgeries. First in 2005 - due to PDA. Revision 06/17/17. Sees Dr. Haider. GI: The patient states that her appetite has been adequate. She does not get hungry. There has been some nausea, some vomiting. She denies dysphagia and denies odynophagia. There has been indigestion with heartburn. There has not been regurgitation. Bowel habits have been irregular. There has been diarrhea. There has partially been constipation. The patient admits to rectal bleeding. There has not been melena. Intermittent generalized abdominal pain. TEST INSPECTION ENGINEER: Negative for abnormal vaginal bleeding, abnormal vaginal discharge. LMP: 01/31/18. PSYCH: Positive for depression: Taking Zoloft. not as effective as people say it is HEMATOLOGY/LYMPHOLOGY Negative for prolonged bleeding, bruising easily or swollen nodes ENDOCRINE: Negative for diabetes or thyroid. NEURO: Reports really bad headaches almost every two days. All other reviewed and negative other than HPI. PAST MEDICAL HISTORY Diagnosis Date - Aortic stenosis s/p repair of a PDA and subvalvular aortic stenosis. Sees Dr. Haider and Dr. Marie - Asthma - Morbid obesity (HCC) - PCOS (polycystic ovarian syndrome) elevated testosterone and elevated insulin - PDA (patent ductus arteriosus) s/p repair age 10 - Tobacco use PAST SURGICAL HISTORY Procedure Laterality Date - PAST SURGICAL HISTORY OF Repair of a PDA and subvalvular aortic stenosis-childhood FAMILY HISTORY Problem Relation Age of Onset - COPD Mother - Thyroid Mother - Asthma Mother - Diabetes Father - Heart Father CO - other (Bone Disease) Brother - COPD Sister - Diabetes Brother - Hypertension Maternal Grandmother - COPD Maternal Grandmother - Emphysema Maternal Grandmother - Heart Maternal Grandfather - Hypertension Maternal Grandfather - Cancer Paternal Uncle Current Outpatient Prescriptions: mupirocin (BACTROBAN) 2 % ointment Apply 1 application to affected area twice daily. Disp: 30 g Rfl: 0 triamcinolone acetonide (KENALOG) 0.1 % cream Apply 1 application to affected area twice daily. Apply to affected area. Disp: 85.2 g Rfl: 0 vit-iron fumarate-fa ( MULTIVITAMINS) 28 mg iron- 800 mcg tab Take 1 tablet by mouth once daily. Disp: 30 tablet Rfl: 5 sertraline (ZOLOFT) 50 mg tablet 1/2 pill daily X 1 week; then increase to a whole pill daily. Disp: 30 tablet Rfl: 2 nystatin-triamcinolone (MYCOLOG) ointment Apply sparingly to perineum twice daily for irritation/infection. Disp: 30 g Rfl: 0 albuterol HFA (VENTOLIN HFA) 90 mcg/actuation inhaler Inhale 2 Puffs as instructed every 4 hours as needed. Disp: 1 Inhaler Rfl: 1 acetaminophen (TYLENOL) 325 mg tablet Take 2 tablets by mouth every 6 hours as needed for Pain or Fever. Disp: Rfl: No current facility-administered medications for this visit. SOCIAL HISTORY: Patient is single and lives with her mother. She smokes 1/2 ppd and reports her alcohol use as never. PHYSICAL EXAMINATION: Blood pressure 135/83, pulse 76, height 170.2 cm (5' 7), weight (!) 137.9 kg (304 lb), last menstrual period 01/31/2018. General Appearance: Well appearing, alert, in no acute distress, well-hydrated, well nourished. Skin: Skin color, texture, turgor normal, no suspicious rashes or lesions. Head: Normocephalic, no masses, lesions or abnormalities. Eyes: Anicteric sclera. Pupils are equally round and reactive to light. Extraocular movements are intact. Neck: Supple, no adenopathy; thyroid symmetric, normal size. Lungs: Lungs clear to auscultation. No wheezing, rhonchi, rales. Heart: RRR with soft ejection murmur. Abdomen: Abdomen soft, non-tender. Bowel sounds normal. No masses, organomegaly. Extremities: No deformities, edema, skin discoloration, clubbing or cyanosis. Peripheral Pulses: Normal. Neurologic: Gait normal. Reflexes normal and symmetric. Sensation grossly intact. Impression: nausea - probable gastroparesis 2)funtional bowel disorder. external hemorrhoid - need to keep stool soft. Plan: Gastric emptying study and RUQ US. Start omeprazole 20mg daily. Further plan based on the results. Recommended Benefiber daily. Consider Miralax. Consider procedures. I have personally interviewed and examined this patient. I have reviewed the information that the MA entered for this encounter. I spent 30 minutes in the visit, with greater than 50% of the total jkca-pm-bnxd time of the visit in counseling and coordination of care. Gayle Mccartney RN TEST GRADER.JOHN Mccartney RN APRN.JOHN 02/09/2018 1:42 PM Addendum Start the new medication, taking it each morning about 30 minutes before eating. Please follow the instructions for the test that looks at how long it takes food to leave your stomach. We will also do an ultrasound of the gallbladder. It will take a day or two after the test for us to get the results. Call [phone], and ask to speak to a nurse in GI, if you have any questions or concerns in the mean time. We will plan the follow up after getting these results back. Referring Provider: JOS BARNES) [[id number]] Allergies As of Date: 02/09/2018 Noted Allergy Reaction PENICILLINS 11/28/2014 4 - Hives TETANUS AND DIPHTHERIA TOXOIDS, A*04/14/2017 2 - Rash Comments: Local erythema and swelling in the affected arm. Date Reviewed: 02/09/2018 Reviewed by: Shonna Pollard Ma - Fully Assessed Reason for Visit: Abdominal Pain [1] Rectal Bleeding [202] Primary Visit Diagnosis:Nausea [R11.0] Other Visit Diagnosis:Early satiety [R68.81] Order(s):US ABD RT UPPER QUADRANT [[id number]] Order #: [id number] FUTURE omeprazole (PRILOSEC) 20 mg capsuleTake 1 capsule by mouth once daily.Disp: 30 capsuleRfl: 3 NM GASTRIC EMPTYING SOLID [[id number]] Order #: [id number] FUTURE Prescriptions as of 02/09/2018 Sig: OMEPRAZOLE 20 MG CAPSULE,VANCE* Take 1 capsule by mouth once * MUPIROCIN 2 % TOPICAL OINTMENT Apply 1 application to affect* TRIAMCINOLONE ACETONIDE 0.1 %* Apply 1 application to affect* VIT NO.95-FERROUS FU* Take 1 tablet by mouth once d* SERTRALINE 50 MG TABLET 1/2 pill daily X 1 week; then* NYSTATIN-TRIAMCINOLONE 100,00* Apply sparingly to perineum t* ALBUTEROL SULFATE HFA 90 MCG/* Inhale 2 Puffs as instructed * ACETAMINOPHEN 325 MG TABLET Take 2 tablets by mouth every* Problem List As Of Date 02/09/2018 Noted Resolved Heart valve stenosis [I38] INVALID FOR* Obesity, Class III, BMI 40-49.9 (morbid obesity*INVALID FOR* Hyperinsulinemia [E16.1] INVALID FOR* Adjustment disorder with mixed anxiety and depr*INVALID FOR* Priority: C More... Seasonal allergic rhinitis due to pollen [J30.1]INVALID FOR* Morbid obesity (HCC) [E66.01] Asthma [J45.909] Priority: B More... Aortic stenosis [I35.0] Priority: A More... PCOS (polycystic ovarian syndrome) [E28.2] More... Pre-op testing [Z01.818] INVALID FOR* More... Discharge planning issues [Z02.9] INVALID FOR* Priority: D More... On mechanically assisted ventilation (HCC) [Z99*INVALID FOR*06/18/2017 Priority: B More... Acute post-operative pain [G89.18] INVALID FOR* Priority: C More... Atelectasis [J98.11] INVALID FOR* Priority: B More... Hypovolemia [E86.1] INVALID FOR*06/18/2017 Priority: F More... Essential hypertension [I10] INVALID FOR* Priority: C More... Transition of care performed with sharing of cl*INVALID FOR* Priority: Very Severe More... Nicotine use disorder, F17.2 [F17.200] INVALID FOR* QUINTON (obstructive sleep apnea) [G47.33] INVALID FOR* Other instructions from your clinician: Start the new medication, taking it each morning about 30 minutes before eating. Please follow the instructions for the test that looks at how long it takes food to leave your stomach. We will also do an ultrasound of the gallbladder. It will take a day or two after the test for us to get the results. Call [phone], and ask to speak to a nurse in GI, if you have any questions or concerns in the mean time. We will plan the follow up after getting these results back. Prescriptions ordered this encounter Disp Refills Start End OMEPRAZOLE 20 MG CAPSULE,DELAYED REL* 30 c* 3 02/09/2018 Route: ORAL Sig: Take 1 capsule by mouth once daily. Follow-up and Disposition History Recorded Encounter Status:Closed by GAYLE MCCARTNEY CNP on 02/09/18 PROGRESS Observed: 01/21/2018 Status: COMPLETED Source: [place] 3:24 PM [facility] RE[facility] HNO ID: [id number] Author: Madonna (Demetrio Mann Service: (none) Author Type: Nurse Practitioner Type: Progress Notes Filed: 01/21/2018 4:27 PM Note Text: CC: Patient presents with: Rash: B/L rash on upper legs, denies pain but does itch on occassion x 3 days HPI Keily Rasmussen is a 22 year old female who presents today for complaints of rash to bilateral thighs x3 days. Patient reports worsening rash to bilateral upper thighs that originated proximally x3 days ago. She reports rash has since migrated down bilateral thighs. She note some itching. Denies pain except when she attempted to treat with peroxide. She denies any fever, chills, drainage, recent travel or changes to soaps, detergents etc. Also denies any swelling or new or worsening numbness and tingling to BLE, notes chronic lateral numbness to left leg. She does report shaving ~5-7 days ago, but notes the razor head was new. Patient also notes heat rash to inner thighs and looking for recommendations related to treatment and prevention. At the conclusion of our visit patient requested her ears be evaluated as she forgot to mention ongoing ear pain her PCP during her appointment ~5 days ago. She notes bilateral ear pain x 7 days without improvement. Associated symptoms include sinus pain/pressure. Again denies fever, chills, rhinorrhea, sore throat, new or worsening cough, wheezing or SOB. REVIEW OF SYSTEMS General: no fevers, no chills, no night sweats, no recurrent infections, no change in appetite, no change in energy and no significant changes in weight HEENT: no visual changes, no nose bleeds, See HPI Neck: no lumps, no pain and no swelling Respiratory: no wheezing, no shortness of breath, no hemoptysis Cardiovascular: no chest pain, no chest pressure, no palpitations and no swelling GI: No nausea, vomiting, or diarrhea Skin: See HPI PAST MEDICAL HISTORY Diagnosis Date - Aortic stenosis s/p repair of a PDA and subvalvular aortic stenosis. Sees Dr. Haider and Dr. Marie - Asthma - Morbid obesity (HCC) - PCOS (polycystic ovarian syndrome) elevated testosterone and elevated insulin - PDA (patent ductus arteriosus) s/p repair age 10 - Tobacco use PAST SURGICAL HISTORY Procedure Laterality Date - PAST SURGICAL HISTORY OF Repair of a PDA and subvalvular aortic stenosis-childhood ALLERGIES Penicillins; Tetanus And Diphtheria Toxoids, Adsorbed, Adult MEDICATIONS vit-iron fumarate-fa ( MULTIVITAMINS) 28 mg iron- 800 mcg tab Take 1 tablet by mouth once daily. sertraline (ZOLOFT) 50 mg tablet 1/2 pill daily X 1 week; then increase to a whole pill daily. nystatin-triamcinolone (MYCOLOG) ointment Apply sparingly to perineum twice daily for irritation/infection. albuterol HFA (VENTOLIN HFA) 90 mcg/actuation inhaler Inhale 2 Puffs as instructed every 4 hours as needed. acetaminophen (TYLENOL) 325 mg tablet Take 2 tablets by mouth every 6 hours as needed for Pain or Fever. FAMILY HISTORY Problem Relation Age of Onset - COPD Mother - Thyroid Mother - Asthma Mother - Diabetes Father - Heart Father [place] - other (Bone Disease) Brother - COPD Sister - Diabetes Brother - Hypertension Maternal Grandmother - COPD Maternal Grandmother - Emphysema Maternal Grandmother - Heart Maternal Grandfather - Hypertension Maternal Grandfather - Cancer Paternal Uncle Social History Substance Use Topics - Smoking status: Current Every Day Smoker Packs/day: 0.50 Years: 2.00 Types: Cigarettes - Smokeless tobacco: Never Used - Alcohol use No PHYSICAL EXAM BP 112/66 Pulse 71 Temp 36.7 ?C (98 ?F) (Temporal Artery) Resp 16 Wt 135.6 kg (299 lb) SpO2 97% BMI 46.83 kg/m? General Appearance: well appearing, in no acute distress, alert, disheveled Skin Bilateral thighs: scattered erythematous follicular erythematous pustules and papules Head: normocephalic, atraumatic Eyes: conjunctiva pink and moist, no icterus, sclera white, non-injected Ears: external ears normal to inspection and palpation, canals clear, R TM: erythematous, L TM: dull Nose/sinus: Nares normal. Septum midline. Mucosa normal. No drainage. Oropharynx: lips normal without lesions, tongue midline and normal, soft palate, uvula, and tonsils normal Lungs: Lungs clear to auscultation. No wheezing, rhonchi, rales Heart: RRR without murmur, gallop, or rubs. No ectopy MENINGOCOCCAL CONJUGATE(1 of 1 - 2-dose series) due on 2013 HPV VACCINE(2 of 2 - Female 2-dose series) due on 11/27/2017 INFLUENZA(1) due on 01/24/2018 GC (GONORRHEA) SCREENING (18-24) due on 12/22/2018 CHLAMYDIA SCREENING (18-24) due on 12/22/2018 ANNUAL PCP TEAM CHRONIC DISEASE VISIT due on 01/15/2019 BLOOD PRESSURE CONTROLLED due on 01/15/2019 DTAP,TDAP,TD(2 - Td) due on 04/11/2027 ONE PNEUMOVAX PRIOR TO AGE 65 Completed ASSESSMENT/PLAN: 1. Folliculitis - ICD9: 704.8, ICD10: L73.9 (primary diagnosis) - MUPIROCIN 2 % TOPICAL OINTMENT - Recommend keeping area clean and dry, apply antibiotic ointment BID - Suggest wearing loose fitting, breathable clothing - Avoid shaving and use of harsh chemicals or body products until resolution - Follow up in 3-5 days if no symptom improvment 2. Heat rash - ICD9: 705.1, ICD10: L74.0 - TRIAMCINOLONE ACETONIDE 0.1 % TOPICAL CREAM 3. Acute maxillary sinusitis, recurrence not specified - ICD9: 461.0, ICD10: J01.00 - Will begin treatment with Doxycline - The patient should also be begin daily non-drowsy antihistamine - Supportive care with plenty of fluids, rest, and analgesia prn. - Follow up in 3-5 days if symptoms persist or worsen. - DOXYCYCLINE MONOHYDRATE 150 MG CAPSULE Madonna Mann APRN.[facility] Prescription instructions reviewed with patient as applicable. Potential red flag symptoms discussed with the patient. Reviewed appropriate action plan to take if red flag symptoms occur. Patient agreeable to treatment plan. CNOV Observed: 01/21/2018 Status: COMPLETED Source: [place] 3:20 PM [facility] REPOSITORY Office Visit (INTMWS) KEILY RASMUSSEN ([id number]) 1995 F Date Time Provider Department 01/21/18 3:20 PM MADONNA MANN (FLOUR TESTER) INTM[facility] During your visit today, we recorded the following information about you: Temperature Pulse Respiration Blood pressure 98 degrees 71/minute 16/minute 112/66 Weight 135.6 kg Madonna Mann APRN.CNP 01/21/2018 4:27 PM Signed CC: Patient presents with: Rash: B/L rash on upper legs, denies pain but does itch on occassion x 3 days HPI Keily Rasmussen is a 22 year old female who presents today for complaints of rash to bilateral thighs x3 days. Patient reports worsening rash to bilateral upper thighs that originated proximally x3 days ago. She reports rash has since migrated down bilateral thighs. She note some itching. Denies pain except when she attempted to treat with peroxide. She denies any fever, chills, drainage, recent travel or changes to soaps, detergents etc. Also denies any swelling or new or worsening numbness and tingling to BLE, notes chronic lateral numbness to left leg. She does report shaving ~5-7 days ago, but notes the razor head was new. Patient also notes heat rash to inner thighs and looking for recommendations related to treatment and prevention. At the conclusion of our visit patient requested her ears be evaluated as she forgot to mention ongoing ear pain her PCP during her appointment ~5 days ago. She notes bilateral ear pain x 7 days without improvement. Associated symptoms include sinus pain/pressure. Again denies fever, chills, rhinorrhea, sore throat, new or worsening cough, wheezing or SOB. REVIEW OF SYSTEMS General: no fevers, no chills, no night sweats, no recurrent infections, no change in appetite, no change in energy and no significant changes in weight HEENT: no visual changes, no nose bleeds, See HPI Neck: no lumps, no pain and no swelling Respiratory: no wheezing, no shortness of breath, no hemoptysis Cardiovascular: no chest pain, no chest pressure, no palpitations and no swelling GI: No nausea, vomiting, or diarrhea Skin: See HPI PAST MEDICAL HISTORY Diagnosis Date - Aortic stenosis s/p repair of a PDA and subvalvular aortic stenosis. Sees Dr. Haider and Dr. Cremer - Asthma - Morbid obesity (HCC) - PCOS (polycystic ovarian syndrome) elevated testosterone and elevated insulin - PDA (patent ductus arteriosus) s/p repair age 10 - Tobacco use PAST SURGICAL HISTORY Procedure Laterality Date - PAST SURGICAL HISTORY OF Repair of a PDA and subvalvular aortic stenosis-childhood ALLERGIES Penicillins; Tetanus And Diphtheria Toxoids, Adsorbed, Adult MEDICATIONS vit-iron fumarate-fa ( MULTIVITAMINS) 28 mg iron- 800 mcg tab Take 1 tablet by mouth once daily. sertraline (ZOLOFT) 50 mg tablet 1/2 pill daily X 1 week; then increase to a whole pill daily. nystatin-triamcinolone (MYCOLOG) ointment Apply sparingly to perineum twice daily for irritation/infection. albuterol HFA (VENTOLIN HFA) 90 mcg/actuation inhaler Inhale 2 Puffs as instructed every 4 hours as needed. acetaminophen (TYLENOL) 325 mg tablet Take 2 tablets by mouth every 6 hours as needed for Pain or Fever. FAMILY HISTORY Problem Relation Age of Onset - COPD Mother - Thyroid Mother - Asthma Mother - Diabetes Father - Heart Father [place] - other (Bone Disease) Brother - COPD Sister - Diabetes Brother - Hypertension Maternal Grandmother - COPD Maternal Grandmother - Emphysema Maternal Grandmother - Heart Maternal Grandfather - Hypertension Maternal Grandfather - Cancer Paternal Uncle Social History Substance Use Topics - Smoking status: Current Every Day Smoker Packs/day: 0.50 Years: 2.00 Types: Cigarettes - Smokeless tobacco: Never Used - Alcohol use No PHYSICAL EXAM BP 112/66 Pulse 71 Temp 36.7 ?C (98 ?F) (Temporal Artery) Resp 16 Wt 135.6 kg (299 lb) SpO2 97% BMI 46.83 kg/m? General Appearance: well appearing, in no acute distress, alert, disheveled Skin Bilateral thighs: scattered erythematous follicular erythematous pustules and papules Head: normocephalic, atraumatic Eyes: conjunctiva pink and moist, no icterus, sclera white, non-injected Ears: external ears normal to inspection and palpation, canals clear, R TM: erythematous, L TM: dull Nose/sinus: Nares normal. Septum midline. Mucosa normal. No drainage. Oropharynx: lips normal without lesions, tongue midline and normal, soft palate, uvula, and tonsils normal Lungs: Lungs clear to auscultation. No wheezing, rhonchi, rales Heart: RRR without murmur, gallop, or rubs. No ectopy MENINGOCOCCAL CONJUGATE(1 of 1 - 2-dose series) due on 2013 HPV VACCINE(2 of 2 - Female 2-dose series) due on 11/27/2017 INFLUENZA(1) due on 01/24/2018 GC (GONORRHEA) SCREENING (18-24) due on 12/22/2018 CHLAMYDIA SCREENING (18-24) due on 12/22/2018 ANNUAL PCP TEAM CHRONIC DISEASE VISIT due on 01/15/2019 BLOOD PRESSURE CONTROLLED due on 01/15/2019 DTAP,TDAP,TD(2 - Td) due on 04/11/2027 ONE PNEUMOVAX PRIOR TO AGE 65 Completed ASSESSMENT/PLAN: 1. Folliculitis - ICD9: 704.8, ICD10: L73.9 (primary diagnosis) - MUPIROCIN 2 % TOPICAL OINTMENT - Recommend keeping area clean and dry, apply antibiotic ointment BID - Suggest wearing loose fitting, breathable clothing - Avoid shaving and use of harsh chemicals or body products until resolution - Follow up in 3-5 days if no symptom improvment 2. Heat rash - ICD9: 705.1, ICD10: L74.0 - TRIAMCINOLONE ACETONIDE 0.1 % TOPICAL CREAM 3. Acute maxillary sinusitis, recurrence not specified - ICD9: 461.0, ICD10: J01.00 - Will begin treatment with Doxycline - The patient should also be begin daily non-drowsy antihistamine - Supportive care with plenty of fluids, rest, and analgesia prn. - Follow up in 3-5 days if symptoms persist or worsen. - DOXYCYCLINE MONOHYDRATE 150 MG CAPSULE Madonna Mann APRN.[facility] Prescription instructions reviewed with patient as applicable. Potential red flag symptoms discussed with the patient. Reviewed appropriate action plan to take if red flag symptoms occur. Patient agreeable to treatment plan. Referring Provider: SELF [[id number]] Allergies As of Date: 01/21/2018 Noted Allergy Reaction PENICILLINS 11/28/2014 4 - Hives TETANUS AND DIPHTHERIA TOXOIDS, A*04/14/2017 2 - Rash Comments: Local erythema and swelling in the affected arm. Date Reviewed: 01/21/2018 Reviewed by: Paz Berny Ma - Fully Assessed Reason for Visit: Rash [1087] Cmt: B/L rash on upper legs, denies pain but does itch on occassion x 3 days Primary Visit Diagnosis:Folliculitis [L73.9] Other Visit Diagnoses:Heat rash [L74.0] Acute maxillary sinusitis, recurrence not specified [J01.00] Order(s):mupirocin (BACTROBAN) 2 % ointmentApply 1 application to affected area twice daily.Disp: 30 gRfl: 0 triamcinolone acetonide (KENALOG) 0.1 % creamApply 1 application to affected area twice daily. Apply to affected area.Disp: 85.2 gRfl: 0 Doxycycline Monohydrate 150 mg capTake 1 capsule by mouth once daily for 5 days.Disp: 5 capsuleRfl: 0 Prescriptions as of 01/21/2018 Sig: MUPIROCIN 2 % TOPICAL OINTMENT Apply 1 application to affect* TRIAMCINOLONE ACETONIDE 0.1 %* Apply 1 application to affect* DOXYCYCLINE MONOHYDRATE 150 M* Take 1 capsule by mouth once * VIT NO.95-FERROUS FU* Take 1 tablet by mouth once d* SERTRALINE 50 MG TABLET 1/2 pill daily X 1 week; then* NYSTATIN-TRIAMCINOLONE 100,00* Apply sparingly to perineum t* ALBUTEROL SULFATE HFA 90 MCG/* Inhale 2 Puffs as instructed * ACETAMINOPHEN 325 MG TABLET Take 2 tablets by mouth every* Problem List As Of Date 01/21/2018 Noted Resolved Heart valve stenosis [I38] INVALID FOR* Obesity, Class III, BMI 40-49.9 (morbid obesity*INVALID FOR* Hyperinsulinemia [E16.1] INVALID FOR* Adjustment disorder with mixed anxiety and depr*INVALID FOR* Priority: C More... Seasonal allergic rhinitis due to pollen [J30.1]INVALID FOR* Morbid obesity (HCC) [E66.01] Asthma [J45.909] Priority: B More... Aortic stenosis [I35.0] Priority: A More... PCOS (polycystic ovarian syndrome) [E28.2] More... Pre-op testing [Z01.818] INVALID FOR* More... Discharge planning issues [Z02.9] INVALID FOR* Priority: D More... On mechanically assisted ventilation (HCC) [Z99*INVALID FOR*06/18/2017 Priority: B More... Acute post-operative pain [G89.18] INVALID FOR* Priority: C More... Atelectasis [J98.11] INVALID FOR* Priority: B More... Hypovolemia [E86.1] INVALID FOR*06/18/2017 Priority: F More... Essential hypertension [I10] INVALID FOR* Priority: C More... Transition of care performed with sharing of cl*INVALID FOR* Priority: Very Severe More... Nicotine use disorder, F17.2 [F17.200] INVALID FOR* QUINTON (obstructive sleep apnea) [G47.33] INVALID FOR* Prescriptions ordered this encounter Disp Refills Start End MUPIROCIN 2 % TOPICAL OINTMENT 30 g 0 01/21/2018 Route: TOPICAL Sig: Apply 1 application to affected area twice daily. TRIAMCINOLONE ACETONIDE 0.1 % TOPICA* 85.2* 0 01/21/2018 Route: TOPICAL Sig: Apply 1 application to affected area twice daily. Apply to affected area. DOXYCYCLINE MONOHYDRATE 150 MG CAPSU* 5 ca* 0 01/21/2018 01/26/2018 Route: ORAL Sig: Take 1 capsule by mouth once daily for 5 days. Letter Text Department of Internal Medicine [address] [address] 01/21/2018 Keily Rasmussen [facility]# [id number] [facility] [address] [facility] [address] TO WHOM IT MAY CONCERN: This is to certify that Ms. Keily Rasmussen has been under my care for illness and was unable to work 01/21/18. Sincerely yours, Madonna Mann APRN.JOHN Encounter Status:Closed by MADONNA MANN CNP on 01/21/18 CBC AND DIFFERENTIAL Collected: 01/15/2018 Status: F Source: [place] 2:42 PM [facility] REPOSITORY TYPE CODE TESTS RESULT OUT OF REFERENCE UNITS RANGE LAB WBC 3.70-11.00 k/uL WBC 10.62 LAB RBC 3.90-5.20 m/uL RBC High 5.41 LAB HGB 11.5-15.5 g/dL Hemoglobin 13.3 LAB HCT 36.0-46.0 % Hematocrit 43.8 LAB MCV 80.0-100.0 fL MCV 81.0 LAB MCH 26.0-34.0 pG Low MCH 24.6 LAB MCHC 30.5-36.0 g/dL Low MCHC 30.4 LAB RDWCV 11.5-15.0 % RDW-CV High 16.1 LAB PLTCT 150-400 k/uL Platelet Count 356 LAB MPV 9.0-12.7 fL MPV 10.0 LAB ANEUT % Neut% 60.9 LAB AANEUT 1.45-7.50 k/uL Abs Neut 6.46 LAB ALYMP % Lymph% 25.4 LAB AALYMP 1.00-4.00 k/uL Abs Lymph 2.70 LAB AMONO % [place]% 8.5 LAB AAMONO <0.87 k/uL Abs [place] High 0.90 LAB AEOS % Eosin% 4.1 LAB AAEOS <0.46 k/uL Abs Eosin 0.44 LAB ABASO % Baso% 1.1 LAB AABASO <0.11 k/uL Abs Baso High 0.12 LAB AUNRBC 0 /100 WBC NRBCs 0.0 LAB ABNRBC <0.01 k/uL Absolute nRBC <0.01 LAB DTYP DTYPE Auto Diff Performed By: #### CBCDIF, WSR, CMP, CRP, LIPA #### [facility] [address] [id number] SED RATE WESTERGREN Collected: 01/15/2018 Status: F Source: [place] 2:42 PM [facility] REPOSITORY TYPE CODE TESTS RESULT OUT OF REFERENCE UNITS RANGE LAB WSR 0-20 mm/hr Sed Rate [place] 15 Performed By: #### CBCDIF, WSR, CMP, CRP, LIPA #### [facility] [address] [address] COMP METABOLIC PANEL Collected: 01/15/2018 Status: F Source: [place] 2:42 PM [facility] REPOSITORY TYPE CODE TESTS RESULT OUT OF REFERENCE UNITS RANGE LAB TP 6.3-8.0 g/dL Protein, Total 7.3 LAB ALB 3.9-4.9 g/dL Albumin 3.9 LAB CA 8.5-10.2 mg/dL Calcium, Total 9.5 LAB TBIL 0.2-1.3 mg/dL Bilirubin, Total 0.2 LAB ALKP 32-117 U/L Alkaline Phosphatase 95 LAB AST 13-35 U/L AST 23 LAB GLU 74-99 mg/dL Glucose 79 Result Comment: The [place] [employer] (ADA) provides guidance for cutoff values for fasting glucose and random glucose. The ADA defines fasting as no caloric intake for at least 8 hours. Fas ting plasma glucose results between 100 to 125 mg/dL indicate increased risk for diabetes (prediabetes). Fasting plasma glucose results greater than or equal to 126 mg/dL meet the criteria for diagnosis of diabetes. In the absence of unequivocal hyperglycemia, results should be confirmed by repeat testing. In a patient with classic symptoms of hyperglycemia or hyperglycemic crisis, random plasma glucose results greater than or equal to 200 mg/dL meet the criteria for diagnosis of diabetes. Reference: Standards of Medical Care in Diabetes 2016, [place] [employer]. Diabetes Care. 2016.39(Suppl 1). LAB BUN 7-21 mg/dL BUN 7 LAB CRET 0.58-0.96 mg/dL Creatinine 0.60 LAB NA 136-144 mmol/L Sodium 137 LAB K 3.7-5.1 mmol/L Potassium 4.3 LAB CL 97-105 mmol/L Chloride 99 LAB CO2 22-30 mmol/L CO2 23 LAB AGAP 9-18 mmol/L Anion Gap 15 LAB ALT 7-38 U/L ALT 24 LAB GFRAA eGFR- Amer. >60 LAB GFRNAA . eGFR-All Other Races >60 Result Comment: eGFR (Estimated GFR) Units of measure: mL/min/1.73 meters squared eGFR is derived from the reexpressed MDRD Study equation using the following parameters: serum creatinine, age, gender and race. The creatinine assay has been calibrated to be traceable to IDMS. An eGFR <60 mL/min/1.73m2 for >3 months is consistent with chronic kidney disease. Refer to KDOQI guidelines for clinical interpretation. In patients with unstable renal function, e.g. those with acute kidney injury, the eGFR may not accurately reflect actual GFR. Performed By: #### CBCDIF, WSR, CMP, CRP, LIPA #### [facility] [address] [place] [address] C-REACTIVE PROTEIN Collected: 01/15/2018 Status: F Source: [place] 2:42 PM [facility] [place] REPOSITORY TYPE CODE TESTS RESULT OUT OF REFERENCE UNITS RANGE LAB CRP <0.9 mg/dL High C-Reactive 1.4 Protein Performed By: #### CBCDIF, WSR, CMP, CRP, LIPA #### [facility] [address] [place], [place] [address] LIPASE Collected: 01/15/2018 Status: F Source: [place] 2:42 PM [facility] REPOSITORY TYPE CODE TESTS RESULT OUT OF REFERENCE UNITS RANGE LAB LIPA 16-61 U/L Low Lipase 15 Performed By: #### CBCDIF, WSR, CMP, CRP, LIPA #### [facility] [address] [place], [place] [address] PROGRESS Observed: 01/15/2018 Status: COMPLETED Source: [place] 1:36 PM [facility] REPOSITORY HNO ID: [id number] Author: Jos Platt) Cameron Service: (none) Author Type: Physician Type: Progress Notes Filed: 01/16/2018 2:33 PM Note Text: Chief Complaint Patient presents with: Abdominal Pain: mid abdomen X 3 days HPI Keily Rasmussen is a 22 year old female who presents here today for Above Complaints.. C/o intermittent mid abdominal pain which started 3 days ago. Described as stabbing pain without radiation, currently 0/10. Pain occurs when she bends. Treated with tylenol OTC which did not help with pain. Feels like pain has not change much over the last 3 days. Has had 4 episodes of nausea and vomiting without blood. Admits to tactile fever, watery diarrhea yesterday and constipation today. Has had blood with stool whenever she has hard BM without pain. States she gets a large amount of blood on toilet paper and some blood in the bowl around the stool. Denies lightheadedness, syncope, SOB. Patient sexually active without protection. Has irregular periods and LMP was 7. Past medical history, appointments, medications, allergies reviewed. Previous Medical History PAST MEDICAL HISTORY Diagnosis Date - Aortic stenosis s/p repair of a PDA and subvalvular aortic stenosis. Sees Dr. Haider and Dr. Marie - Asthma - Morbid obesity (HCC) - PCOS (polycystic ovarian syndrome) elevated testosterone and elevated insulin - PDA (patent ductus arteriosus) s/p repair age 10 - Tobacco use Previous Surgical History PAST SURGICAL HISTORY Procedure Laterality Date - PAST SURGICAL HISTORY OF Repair of a PDA and subvalvular aortic stenosis-childhood Family History FAMILY HISTORY Problem Relation Age of Onset - COPD Mother - Thyroid Mother - Asthma Mother - Diabetes Father - Heart Father CO - other (Bone Disease) Brother - COPD Sister - Diabetes Brother - Hypertension Maternal Grandmother - COPD Maternal Grandmother - Emphysema Maternal Grandmother - Heart Maternal Grandfather - Hypertension Maternal Grandfather - Cancer Paternal Uncle Patient Allergies ALLERGIES Allergen Reactions - Penicillins Hives - Tetanus And Diphthe* Rash Local erythema and swelling in the affected arm. Current Medications Current Outpatient Prescriptions on File Prior to Visit: sertraline (ZOLOFT) 50 mg tablet 1/2 pill daily X 1 week; then increase to a whole pill daily. nystatin-triamcinolone (MYCOLOG) ointment Apply sparingly to perineum twice daily for irritation/infection. albuterol HFA (VENTOLIN HFA) 90 mcg/actuation inhaler Inhale 2 Puffs as instructed every 4 hours as needed. vit-iron fumarate-fa ( MULTIVITAMINS) 28 mg iron- 800 mcg tab Take 1 tablet by mouth once daily. acetaminophen (TYLENOL) 325 mg tablet Take 2 tablets by mouth every 6 hours as needed for Pain or Fever. No current facility-administered medications on file prior to visit. Social History Social History Marital status: Single Spouse name: Years of education: Number of children: Occupational History Occupation Employer Comment Unemployed Social History Main Topics Smoking status: Current Every Day Smoker Packs/day: 0.50 Years: 2.00 Types: Cigarettes Smokeless tobacco: Never Used Alcohol use: No Drug use: No Sexual activity: Yes Partners with: Male Review of Symptoms REVIEW OF SYSTEMS See HPI EXAM: BP 124/70 (BP Site: Left Arm, BP Position: Sitting, BP Cuff Size: Large Adult) Pulse 72 Temp 36.7 ?C (98.1 ?F) (Right Tympanic) Resp 14 Wt 135.2 kg (298 lb) LMP 12/06/2017 BMI 46.67 kg/m? General Appearance: Well appearing, alert, in no acute distress, well-hydrated, well nourished.. Skin: Skin color, texture, turgor normal, no suspicious rashes or lesions. Lungs: Lungs clear to auscultation. No wheezing, rhonchi, rales. Heart: RRR without murmur, gallop, or rubs. No ectopy. Abdomen: Abdomen soft. Bowel sounds normal. No masses, organomegaly, Negative CVA tenderness, Positive findings: tenderness mild LUQ and LLQ without guarding or rebound. Rectal: Negative findings: anal sphincter tone normal, Positive findings: small fleshy hemorrhoid at 9 o'clock, pain at 12o'clock with digital exam. No internal hemorrhoid of fissure noted. Health Maintenance List MENINGOCOCCAL CONJUGATE(1 of 1 - 2-dose series) due on 2013 BLOOD PRESSURE CONTROLLED due on 2015 HPV VACCINE(2 of 2 - Female 2-dose series) due on 11/27/2017 INFLUENZA(1) due on 01/24/2018 GC (GONORRHEA) SCREENING (18-24) due on 12/22/2018 ANNUAL PCP TEAM CHRONIC DISEASE VISIT due on 12/22/2018 CHLAMYDIA SCREENING (18-24) due on 12/22/2018 DTAP,TDAP,TD(2 - Td) due on 04/11/2027 ONE PNEUMOVAX PRIOR TO AGE 65 Completed Component Latest Ref Rng AND Units 01/15/2018 01/15/2018 12:00 AM 12:00 AM Glucose, Urine Neg mg/dL neg Bilirubin, Urine Neg neg Ketones, Urine Neg neg Specific [place], Ur 1.005 - 1.030 1.020 Hemoglobin/Blood,Ur Neg neg pH, Urine 4.5 - 8.0 6.0 Protein, Urine Neg mg/dL neg Urobilinogen, Urine Normal (<1.1) EU normal Nitrites Neg neg Leukocytes Neg neg Color/Appearance comment: dark yellow clear Quality Check yes/no Yes Yes , Urine neg - pos neg ASSESSMENT/PLAN: 1. Generalized abdominal pain - ICD9: 789.07, ICD10: R10.84 (primary diagnosis) Will obtain labs to rule out infection, inflammation, liver etiology, pancreatitis. Refer to GI for significant GI bleed and rule out anemia. Advised pushing PO fluids, clear liquid diet for 1-2 days and advance slowly. Given information on hemorrhoids and keeping stools soft. - UA DIP B/O - HCG QUAL UR B/O - CBC + DIFF - COMP METABOLIC PANEL - CONSULT TO GASTROENTEROLOGY - SED ANCA FLETCHERREN - C-REACTIVE PROTEIN (CRP) 2. Non-intractable vomiting with nausea, unspecified vomiting type - ICD9: 787.01, ICD10: R11.2 Resolved. May be 2/2 viral gastro. 3. Diarrhea, unspecified type - ICD9: 787.91, ICD10: R19.7 Improving. May be 2/2 viral gastro. 4. Acute constipation - ICD9: 564.00, ICD10: K59.00 Push PO fluids, increase fiber, OTC miralax and stool softener. 5. Hemorrhoids, unspecified hemorrhoid type - ICD9: 455.6, ICD10: K64.9 Non thrombosed hemorrhoids today. See above. Follow up with GI. 6. Rectal bleeding - ICD9: 569.3, ICD10: K62.5 See above. - CBC + DIFF - LIPASE BLD - FECAL OCCULT BLOOD TEST - CONSULT TO GASTROENTEROLOGY Jos Barnes MD CNOV Observed: 01/15/2018 Status: COMPLETED Source: [place] 1:20 PM [facility] REPOSITORY Office Visit (FAMPWS) KEILY RASMUSSEN ([id number]) 1995 F Date Time Provider Department 01/15/18 1:20 PM JOS BARNES) FAMPWS During your visit today, we recorded the following information about you: Temperature Pulse Respiration Blood pressure 98.1 degrees 72/minute 14/minute 124/70 Weight Last Period 135.2 kg 12/06/17 Jos Barnes MD 01/16/2018 2:33 PM Signed Chief Complaint Patient presents with: Abdominal Pain: mid abdomen X 3 days HPI Keily Rasmussen is a 22 year old female who presents here today for Above Complaints.. C/o intermittent mid abdominal pain which started 3 days ago. Described as stabbing pain without radiation, currently 0/10. Pain occurs when she bends. Treated with tylenol OTC which did not help with pain. Feels like pain has not change much over the last 3 days. Has had 4 episodes of nausea and vomiting without blood. Admits to tactile fever, watery diarrhea yesterday and constipation today. Has had blood with stool whenever she has hard BM without pain. States she gets a large amount of blood on toilet paper and some blood in the bowl around the stool. Denies lightheadedness, syncope, SOB. Patient sexually active without protection. Has irregular periods and LMP was 12/06. Past medical history, appointments, medications, allergies reviewed. Previous Medical History PAST MEDICAL HISTORY Diagnosis Date - Aortic stenosis s/p repair of a PDA and subvalvular aortic stenosis. Sees Dr. Haider and Dr. Marie - Asthma - Morbid obesity (HCC) - PCOS (polycystic ovarian syndrome) elevated testosterone and elevated insulin - PDA (patent ductus arteriosus) s/p repair age 10 - Tobacco use Previous Surgical History PAST SURGICAL HISTORY Procedure Laterality Date - PAST SURGICAL HISTORY OF Repair of a PDA and subvalvular aortic stenosis-childhood Family History FAMILY HISTORY Problem Relation Age of Onset - COPD Mother - Thyroid Mother - Asthma Mother - Diabetes Father - Heart Father CO - other (Bone Disease) Brother - COPD Sister - Diabetes Brother - Hypertension Maternal Grandmother - COPD Maternal Grandmother - Emphysema Maternal Grandmother - Heart Maternal Grandfather - Hypertension Maternal Grandfather - Cancer Paternal Uncle Patient Allergies ALLERGIES Allergen Reactions - Penicillins Hives - Tetanus And Diphthe* Rash Local erythema and swelling in the affected arm. Current Medications Current Outpatient Prescriptions on File Prior to Visit: sertraline (ZOLOFT) 50 mg tablet 1/2 pill daily X 1 week; then increase to a whole pill daily. nystatin-triamcinolone (MYCOLOG) ointment Apply sparingly to perineum twice daily for irritation/infection. albuterol HFA (VENTOLIN HFA) 90 mcg/actuation inhaler Inhale 2 Puffs as instructed every 4 hours as needed. vit-iron fumarate-fa ( MULTIVITAMINS) 28 mg iron- 800 mcg tab Take 1 tablet by mouth once daily. acetaminophen (TYLENOL) 325 mg tablet Take 2 tablets by mouth every 6 hours as needed for Pain or Fever. No current facility-administered medications on file prior to visit. Social History Social History Marital status: Single Spouse name: Years of education: Number of children: Occupational History Occupation Employer Comment Unemployed Social History Main Topics Smoking status: Current Every Day Smoker Packs/day: 0.50 Years: 2.00 Types: Cigarettes Smokeless tobacco: Never Used Alcohol use: No Drug use: No Sexual activity: Yes Partners with: Male Review of Symptoms REVIEW OF SYSTEMS See HPI EXAM: BP 124/70 (BP Site: Left Arm, BP Position: Sitting, BP Cuff Size: Large Adult) Pulse 72 Temp 36.7 ?C (98.1 ?F) (Right Tympanic) Resp 14 Wt 135.2 kg (298 lb) LMP 12/06/2017 BMI 46.67 kg/m? General Appearance: Well appearing, alert, in no acute distress, well-hydrated, well nourished.. Skin: Skin color, texture, turgor normal, no suspicious rashes or lesions. Lungs: Lungs clear to auscultation. No wheezing, rhonchi, rales. Heart: RRR without murmur, gallop, or rubs. No ectopy. Abdomen: Abdomen soft. Bowel sounds normal. No masses, organomegaly, Negative CVA tenderness, Positive findings: tenderness mild LUQ and LLQ without guarding or rebound. Rectal: Negative findings: anal sphincter tone normal, Positive findings: small fleshy hemorrhoid at 9 o'clock, pain at 12o'clock with digital exam. No internal hemorrhoid of fissure noted. Health Maintenance List MENINGOCOCCAL CONJUGATE(1 of 1 - 2-dose series) due on 2013 BLOOD PRESSURE CONTROLLED due on 2015 HPV VACCINE(2 of 2 - Female 2-dose series) due on 11/27/2017 INFLUENZA(1) due on 01/24/2018 GC (GONORRHEA) SCREENING (18-24) due on 12/22/2018 ANNUAL PCP TEAM CHRONIC DISEASE VISIT due on 12/22/2018 CHLAMYDIA SCREENING (18-24) due on 12/22/2018 DTAP,TDAP,TD(2 - Td) due on 04/11/2027 ONE PNEUMOVAX PRIOR TO AGE 65 Completed Component Latest Ref Rng AND Units 01/15/2018 01/15/2018 12:00 AM 12:00 AM Glucose, Urine Neg mg/dL neg Bilirubin, Urine Neg neg Ketones, Urine Neg neg Specific [place], Ur 1.005 - 1.030 1.020 Hemoglobin/Blood,Ur Neg neg pH, Urine 4.5 - 8.0 6.0 Protein, Urine Neg mg/dL neg Urobilinogen, Urine Normal (<1.1) EU normal Nitrites Neg neg Leukocytes Neg neg Color/Appearance comment: dark yellow clear Quality Check yes/no Yes Yes , Urine neg - pos neg ASSESSMENT/PLAN: 1. Generalized abdominal pain - ICD9: 789.07, ICD10: R10.84 (primary diagnosis) Will obtain labs to rule out infection, inflammation, liver etiology, pancreatitis. Refer to GI for significant GI bleed and rule out anemia. Advised pushing PO fluids, clear liquid diet for 1-2 days and advance slowly. Given information on hemorrhoids and keeping stools soft. - UA DIP B/O - HCG QUAL UR B/O - CBC + DIFF - COMP METABOLIC PANEL - CONSULT TO GASTROENTEROLOGY - SED RATE WESTERGREN - C-REACTIVE PROTEIN (CRP) 2. Non-intractable vomiting with nausea, unspecified vomiting type - ICD9: 787.01, ICD10: R11.2 Resolved. May be 2/2 viral gastro. 3. Diarrhea, unspecified type - ICD9: 787.91, ICD10: R19.7 Improving. May be 2/2 viral gastro. 4. Acute constipation - ICD9: 564.00, ICD10: K59.00 Push PO fluids, increase fiber, OTC miralax and stool softener. 5. Hemorrhoids, unspecified hemorrhoid type - ICD9: 455.6, ICD10: K64.9 Non thrombosed hemorrhoids today. See above. Follow up with GI. 6. Rectal bleeding - ICD9: 569.3, ICD10: K62.5 See above. - CBC + DIFF - LIPASE BLD - FECAL OCCULT BLOOD TEST - CONSULT TO GASTROENTEROLOGY Jos Barnes MD Referring Provider: SELF [[id number]] Allergies As of Date: 01/15/2018 Noted Allergy Reaction PENICILLINS 11/28/2014 4 - Hives TETANUS AND DIPHTHERIA TOXOIDS, A*04/14/2017 2 - Rash Comments: Local erythema and swelling in the affected arm. Date Reviewed: 01/15/2018 Reviewed by: Grace Randle Cma - Fully Assessed Reason for Visit: Abdominal Pain [1] Cmt: mid abdomen X 3 days Primary Visit Diagnosis:Generalized abdominal pain [R10.84] Other Visit Diagnoses:Non-intractable vomiting with nausea, unspecified vomiting type [R11.2] Diarrhea, unspecified type [R19.7] Acute constipation [K59.00] Hemorrhoids, unspecified hemorrhoid type [K64.9] Rectal bleeding [K62.5] Order(s):UA DIP B/O [7629361] Order #: [id number] HCG QUAL UR B/O [1656650] Order #: [id number] CBC + DIFF [SQCBCDIF] Order #: [id number] FUTURE COMP METABOLIC PANEL [SQCMP] Order #: [id number] FUTURE LIPASE BLD [SQLIPA] Order #: [id number] FUTURE FECAL OCCULT BLOOD TEST [SQIFOBT] Order #: [id number] FUTURE CONSULT TO GASTROENTEROLOGY [9010] Order #: [id number]: 1 SED RATE WESTERGREN [SQWSR] Order #: [id number] FUTURE C-REACTIVE PROTEIN (CRP) [SQCRP] Order #: [id number] FUTURE vit-iron fumarate-fa ( MULTIVITAMINS) 28 mg iron- 800 mcg tabTake 1 tablet by mouth once daily.Disp: 30 tabletRfl: 5 Prescriptions as of 01/15/2018 Sig: VIT NO.95-FERROUS FU* Take 1 tablet by mouth once d* SERTRALINE 50 MG TABLET 1/2 pill daily X 1 week; then* NYSTATIN-TRIAMCINOLONE 100,00* Apply sparingly to perineum t* ALBUTEROL SULFATE HFA 90 MCG/* Inhale 2 Puffs as instructed * ACETAMINOPHEN 325 MG TABLET Take 2 tablets by mouth every* Problem List As Of Date 01/15/2018 Noted Resolved Heart valve stenosis [I38] INVALID FOR* Obesity, Class III, BMI 40-49.9 (morbid obesity*INVALID FOR* Hyperinsulinemia [E16.1] INVALID FOR* Adjustment disorder with mixed anxiety and depr*INVALID FOR* Priority: C More... Seasonal allergic rhinitis due to pollen [J30.1]INVALID FOR* Morbid obesity (HCC) [E66.01] Asthma [J45.909] Priority: B More... Aortic stenosis [I35.0] Priority: A More... PCOS (polycystic ovarian syndrome) [E28.2] More... Pre-op testing [Z01.818] INVALID FOR* More... Discharge planning issues [Z02.9] INVALID FOR* Priority: D More... On mechanically assisted ventilation (HCC) [Z99*INVALID FOR*06/18/2017 Priority: B More... Acute post-operative pain [G89.18] INVALID FOR* Priority: C More... Atelectasis [J98.11] INVALID FOR* Priority: B More... Hypovolemia [E86.1] INVALID FOR*06/18/2017 Priority: F More... Essential hypertension [I10] INVALID FOR* Priority: C More... Transition of care performed with sharing of cl*INVALID FOR* Priority: Very Severe More... Nicotine use disorder, F17.2 [F17.200] INVALID FOR* QUINTON (obstructive sleep apnea) [G47.33] INVALID FOR* Prescriptions ordered this encounter Disp Refills Start End VIT NO.95-FERROUS FUMARATE * 30 t* 5 01/15/2018 Route: ORAL Sig: Take 1 tablet by mouth once daily. Medications Discontinued During This Encounter vit-iron fumarate-fa (PRENA* 30 t* 3 10/02/2017 01/15/2018 Route: ORAL Sig: Take 1 tablet by mouth once daily. Disc: Reason for discontinue is not on file. Letter Text Jos Barnes M.D [address], [place] [address] 01/15/2018 TO WHOM IT MAY CONCERN: This is to confirm that Keily Rasmussen had an appointment and was seen at the [facility] in the Department of Family Medicine by Teo Felipe 01/15/2018 and may return to work on 01/16/2018. Sincerely yours, Jos Barnes M.D Encounter Status:Closed by JOS BARNES MD on 01/16/18 GC/CHLAMYDIA AMPLIF Collected: 12/22/2017 Status: F Source: [place] 11:30 AM [facility] REPOSIT[facility] TYPE CODE TESTS RESULT OUT OF REFERENCE UNITS RANGE LAB GCCTSR GC/Chlam Amp [facility] Source LAB GCAMPL GC Negative Amplification for Neisseria gonorrhoeae by amplification. LAB CLAMPL Chlamydia Negative Amplif for Chlamydia trachomatis by amplification. Performed By: #### GCCT #### [facility] [employer] [address] [place], [place] [address] VAG PATHOGENS DNA Collected: 12/22/2017 Status: F Source: [place] 11:30 AM [facility] REPOSITORY TYPE CODE TESTS RESULT OUT OF RANGE REFERENCE UNITS LAB TVDNA Negative for Trichomonas Negative vaginalis by DNA for Trichomonas Probe Trich vag vaginalis by DNA DNA Probe Probe LAB GVDNA Negative for Gardnerella Positive Abnormal vaginalis by DNA for Gardnerella Alert Probe Mayra vag vaginalis by DNA DNA Probe probe. Result Comment: This is suggestive, but not diagnostic of bacterial vaginosis, results should be interpreted in conjunction with other data such as pH, amine odor, clue cells and vaginal discharge characteristics. LAB CANDNA Negative for Brianna species Negative by DNA Probe Brianna sp DNA for Brianna Probe species by DNA Probe Performed By: #### VAGDNA #### [facility] [employer] [address] [place], [place] [address] CNOV Observed: 12/22/2017 Status: COMPLETED Source: [place] 11:00 AM [facility] REPOSITORY Office Visit (FAMPWS) KEILY RASMUSSEN ([id number]) 1995 F Date Time Provider Department 12/22/17 11:00 AM YESI CODY (FLOUR TESTER) FAMPWS During your visit today, we recorded the following information about you: Pulse Respiration Blood pressure Weight 76/minute 14/minute 132/78 136.5 kg Yesi Cody APRN.CNP 12/22/2017 12:03 PM Signed This is a 22 year old female who presents today with: Patient presents with: Recheck: sleep study results/discuss medications HISTORY OF PRESENT ILLNESS: Keily Martin Valery is a 22 year old female. Patient presents with: Recheck: sleep study results/discuss medications Refer depression medication not working. Refers that she was on the medicine until last week. Refers that it only helped for the first couple of days. Refers that she still had her depression. Refers that she was more angry. Refers that she did call psychiatry before, but they never called her back. She had a sleep study done on 11/19, which showed moderate QUINTON. She was to return for split study. We sent orders. Refers that her phone has been off -- so she has not been reachable to do this. Refers that she has a vaginal itch. + sexually active. Current partner 5-6 months. Always has discharge. Always has odor. PAST MEDICAL HISTORY: PAST MEDICAL HISTORY Diagnosis Date - Aortic stenosis s/p repair of a PDA and subvalvular aortic stenosis. Sees Dr. Haider and Dr. Marie - Asthma - Morbid obesity (HCC) - PCOS (polycystic ovarian syndrome) elevated testosterone and elevated insulin - PDA (patent ductus arteriosus) s/p repair age 10 - Tobacco use PAST SURGICAL HISTORY Procedure Laterality Date - PAST SURGICAL HISTORY OF Repair of a PDA and subvalvular aortic stenosis-childhood ALLERGIES Penicillins; Tetanus And Diphtheria Toxoids, Adsorbed, Adult MEDICATIONS Current Outpatient Prescriptions: albuterol HFA (VENTOLIN HFA) 90 mcg/actuation inhaler Inhale 2 Puffs as instructed every 4 hours as needed. escitalopram oxalate (LEXAPRO) 10 mg tablet Start 1/2 pill daily X 1 week; then increase to a whole pill daily. vit-iron fumarate-fa ( MULTIVITAMINS) 28 mg iron- 800 mcg tab Take 1 tablet by mouth once daily. acetaminophen (TYLENOL) 325 mg tablet Take 2 tablets by mouth every 6 hours as needed for Pain or Fever. No current facility-administered medications for this visit. FAMILY HISTORY Problem Relation Age of Onset - COPD Mother - Thyroid Mother - Asthma Mother - Diabetes Father - Heart Father CO - Bone Disease [OTHER] Brother - COPD Sister - Diabetes Brother - Hypertension Maternal Grandmother - COPD Maternal Grandmother - Emphysema Maternal Grandmother - Heart Maternal Grandfather - Hypertension Maternal Grandfather - Cancer Paternal Uncle Social History Marital status: Single Spouse name: Years of education: Number of children: Occupational History Occupation Employer Comment Unemployed Social History Main Topics Smoking status: Current Every Day Smoker Packs/day: 0.50 Years: 2.00 Types: Cigarettes Smokeless tobacco: Never Used Alcohol use: No Drug use: No Sexual activity: Yes Partners with: Male EXAM: BP 132/78 (BP Site: Right Arm, BP Position: Sitting, BP Cuff Size: Large Adult) Pulse 76 Resp 14 Wt (!) 136.5 kg (301 lb) BMI 47.14 kg/m? PHYSICAL EXAM: General Appearance: Well appearing, alert, in no acute distress, well-hydrated, well nourished.. Skin: Skin color, texture, turgor normal, no suspicious rashes or lesions. Head: Normocephalic, no masses, lesions, tenderness or abnormalities. Eyes: Anicteric sclera. Extraocular movements are intact. . Neurologic: Gait normal. Reflexes normal and symmetric. Sensation grossly intact.. Pelvic: External genitalia red, and vagina and cervix normal., Bimanual exam normal, Positive findings: vaginal discharge - white, thin and frothy. ASSESSMENT/PLAN: 1. QUINTON (obstructive sleep apnea) - ICD9: 327.23, ICD10: G47.33 (primary diagnosis) Already ordered split study. Suspect with her phone off, they've not been able to reach her to schedule. Pt given their phone number and instructed to call and schedule. 2. Depression, unspecified depression type - ICD9: 311, ICD10: F32.9 Pt stopped lexapro. Will start sertraline. Discussed with patient that these medication take a month to see the full effect. - SERTRALINE 50 MG TABLET 3. Cutaneous candidiasis - ICD9: 112.3, ICD10: B37.2 - NYSTATIN-TRIAMCINOLONE 100,000 UNIT/GRAM-0.1 % TOPICAL OINTMENT 4. Vaginal discharge - ICD9: 623.5, ICD10: N89.8 - VAGINAL PATHOGENS DNA PROBES - GC/CHLAMYDIA DNA DET 5. Vaginal itching - ICD9: 698.1, ICD10: N89.8 - VAGINAL PATHOGENS DNA PROBES - GC/CHLAMYDIA DNA DET Discussed treatment plan and patient voices understanding. Patient's questions answered appropriately. Medications and potential side effects were discussed and patient voices understanding. Return in a month for follow-up. Return to the office as scheduled or as needed for worsening/no improvement. Yesi Cody APRN.FLOUR TESTER The patient indicates understanding of these issues and agrees with the plan. Yesi Cody APRN.CNP 12/22/2017 11:15 AM Signed 1. Call the sleep lab and set up sleep study -- [phone] 2. Call in here on Friday to receive your results from today. 3. Start the zoloft (sertraline). 1/2 pill daily X 1 week; then increase to a whole pill daily. 4. Recheck in 1 month. Referring Provider: SELF [200] Allergies As of Date: 12/22/2017 Noted Allergy Reaction PENICILLINS 11/28/2014 4 - Hives TETANUS AND DIPHTHERIA TOXOIDS, A*04/14/2017 2 - Rash Comments: Local erythema and swelling in the affected arm. Date Reviewed: 12/22/2017 Reviewed by: Grace Randle Gathering Machine Feeder - Fully Assessed Reason for Visit: Recheck [92] Cmt: sleep study results/discuss medications Primary Visit Diagnosis:QUINTON (obstructive sleep apnea) [G47.33] Other Visit Diagnoses:Depression, unspecified depression type [F32.9] Cutaneous candidiasis [B37.2] Vaginal discharge [N89.8] Vaginal itching [N89.8] Order(s):sertraline (ZOLOFT) 50 mg tablet1/2 pill daily X 1 week; then increase to a whole pill daily.Disp: 30 tabletRfl: 2 nystatin-triamcinolone (MYCOLOG) ointmentApply sparingly to perineum twice daily for irritation/infection.Disp: 30 gRfl: 0 VAGINAL PATHOGENS DNA PROBES [SQVAGDNA] Order #: [id number] GC/CHLAMYDIA DNA DET [SQGCCAMP] Order #: [id number] Prescriptions as of 12/22/2017 Sig: ALBUTEROL SULFATE HFA 90 MCG/* Inhale 2 Puffs as instructed * VIT NO.95-FERROUS FU* Take 1 tablet by mouth once d* ACETAMINOPHEN 325 MG TABLET Take 2 tablets by mouth every* SERTRALINE 50 MG TABLET 1/2 pill daily X 1 week; then* NYSTATIN-TRIAMCINOLONE 100,00* Apply sparingly to perineum t* Medication notes this encounter ESCITALOPRAM 10 MG TABLET >> Yesi Cody APRN.CNP 12/22/2017 10:53 AM states ineffective Problem List As Of Date 12/22/2017 Noted Resolved Heart valve stenosis [I38] INVALID FOR* Obesity, Class III, BMI 40-49.9 (morbid obesity*INVALID FOR* Hyperinsulinemia [E16.1] INVALID FOR* Adjustment disorder with mixed anxiety and depr*INVALID FOR* Priority: C More... Seasonal allergic rhinitis due to pollen [J30.1]INVALID FOR* Morbid obesity (HCC) [E66.01] Asthma [J45.909] Priority: B More... Aortic stenosis [I35.0] Priority: A More... PCOS (polycystic ovarian syndrome) [E28.2] More... Pre-op testing [Z01.818] INVALID FOR* More... Discharge planning issues [Z02.9] INVALID FOR* Priority: D More... On mechanically assisted ventilation (HCC) [Z99*INVALID FOR*06/18/2017 Priority: B More... Acute post-operative pain [G89.18] INVALID FOR* Priority: C More... Atelectasis [J98.11] INVALID FOR* Priority: B More... Hypovolemia [E86.1] INVALID FOR*06/18/2017 Priority: F More... Essential hypertension [I10] INVALID FOR* Priority: C More... Transition of care performed with sharing of cl*INVALID FOR* Priority: Very Severe More... Nicotine use disorder, F17.2 [F17.200] INVALID FOR* QUINTON (obstructive sleep apnea) [G47.33] INVALID FOR* Other instructions from your clinician: 1. Call the sleep lab and set up sleep study -- [phone] 2. Call in here on Friday to receive your results from today. 3. Start the zoloft (sertraline). 1/2 pill daily X 1 week; then increase to a whole pill daily. 4. Recheck in 1 month. Prescriptions ordered this encounter Disp Refills Start End SERTRALINE 50 MG TABLET 30 t* 2 12/22/2017 Si/2 pill daily X 1 week; then increase to a whole pill daily. NYSTATIN-TRIAMCINOLONE 100,000 UNIT/* 30 g 0 12/22/2017 Sig: Apply sparingly to perineum twice daily for irritation/infection. Medications Discontinued During This Encounter escitalopram oxalate (LEXAPRO) 10 mg* 30 t* 2 11/05/2017 12/22/2017 Sig: Start 1/2 pill daily X 1 week; then increase to a whole pill daily. Disc: Discontinued by Patient Encounter Status:Closed by YESI CODY CNP on 12/22/17 PROGRESS Observed: 12/22/2017 Status: COMPLETED Source: [place] 10:45 AM [facility] REPOSITORY HNO ID: [id number] Author: Yesi He) [place] Service: (none) Author Type: Nurse Practitioner Type: Progress Notes Filed: 12/22/2017 12:03 PM Note Text: This is a 22 year old female who presents today with: Patient presents with: Recheck: sleep study results/discuss medications HISTORY OF PRESENT ILLNESS: Keily Rasmussen is a 22 year old female. Patient presents with: Recheck: sleep study results/discuss medications Refer depression medication not working. Refers that she was on the medicine until last week. Refers that it only helped for the first couple of days. Refers that she still had her depression. Refers that she was more angry. Refers that she did call psychiatry before, but they never called her back. She had a sleep study done on 11/19, which showed moderate QUINTON. She was to return for split study. We sent orders. Refers that her phone has been off -- so she has not been reachable to do this. Refers that she has a vaginal itch. + sexually active. Current partner 5-6 months. Always has discharge. Always has odor. PAST MEDICAL HISTORY: PAST MEDICAL HISTORY Diagnosis Date - Aortic stenosis s/p repair of a PDA and subvalvular aortic stenosis. Sees Dr. Haider and Dr. Marie - Asthma - Morbid obesity (HCC) - PCOS (polycystic ovarian syndrome) elevated testosterone and elevated insulin - PDA (patent ductus arteriosus) s/p repair age 10 - Tobacco use PAST SURGICAL HISTORY Procedure Laterality Date - PAST SURGICAL HISTORY OF Repair of a PDA and subvalvular aortic stenosis-childhood ALLERGIES Penicillins; Tetanus And Diphtheria Toxoids, Adsorbed, Adult MEDICATIONS Current Outpatient Prescriptions: albuterol HFA (VENTOLIN HFA) 90 mcg/actuation inhaler Inhale 2 Puffs as instructed every 4 hours as needed. escitalopram oxalate (LEXAPRO) 10 mg tablet Start 1/2 pill daily X 1 week; then increase to a whole pill daily. vit-iron fumarate-fa ( MULTIVITAMINS) 28 mg iron- 800 mcg tab Take 1 tablet by mouth once daily. acetaminophen (TYLENOL) 325 mg tablet Take 2 tablets by mouth every 6 hours as needed for Pain or Fever. No current facility-administered medications for this visit. FAMILY HISTORY Problem Relation Age of Onset - COPD Mother - Thyroid Mother - Asthma Mother - Diabetes Father - Heart Father CO - Bone Disease [OTHER] Brother - COPD Sister - Diabetes Brother - Hypertension Maternal Grandmother - COPD Maternal Grandmother - Emphysema Maternal Grandmother - Heart Maternal Grandfather - Hypertension Maternal Grandfather - Cancer Paternal Uncle Social History Marital status: Single Spouse name: Years of education: Number of children: Occupational History Occupation Employer Comment Unemployed Social History Main Topics Smoking status: Current Every Day Smoker Packs/day: 0.50 Years: 2.00 Types: Cigarettes Smokeless tobacco: Never Used Alcohol use: No Drug use: No Sexual activity: Yes Partners with: Male EXAM: BP 132/78 (BP Site: Right Arm, BP Position: Sitting, BP Cuff Size: Large Adult) Pulse 76 Resp 14 Wt (!) 136.5 kg (301 lb) BMI 47.14 kg/m? PHYSICAL EXAM: General Appearance: Well appearing, alert, in no acute distress, well-hydrated, well nourished.. Skin: Skin color, texture, turgor normal, no suspicious rashes or lesions. Head: Normocephalic, no masses, lesions, tenderness or abnormalities. Eyes: Anicteric sclera. Extraocular movements are intact. . Neurologic: Gait normal. Reflexes normal and symmetric. Sensation grossly intact.. Pelvic: External genitalia red, and vagina and cervix normal., Bimanual exam normal, Positive findings: vaginal discharge - white, thin and frothy. ASSESSMENT/PLAN: 1. QUINTON (obstructive sleep apnea) - ICD9: 327.23, ICD10: G47.33 (primary diagnosis) Already ordered split study. Suspect with her phone off, they've not been able to reach her to schedule. Pt given their phone number and instructed to call and schedule. 2. Depression, unspecified depression type - ICD9: 311, ICD10: F32.9 Pt stopped lexapro. Will start sertraline. Discussed with patient that these medication take a month to see the full effect. - SERTRALINE 50 MG TABLET 3. Cutaneous candidiasis - ICD9: 112.3, ICD10: B37.2 - NYSTATIN-TRIAMCINOLONE 100,000 UNIT/GRAM-0.1 % TOPICAL OINTMENT 4. Vaginal discharge - ICD9: 623.5, ICD10: N89.8 - VAGINAL PATHOGENS DNA PROBES - GC/CHLAMYDIA DNA DET 5. Vaginal itching - ICD9: 698.1, ICD10: N89.8 - VAGINAL PATHOGENS DNA PROBES - GC/CHLAMYDIA DNA DET Discussed treatment plan and patient voices understanding. Patient's questions answered appropriately. Medications and potential side effects were discussed and patient voices understanding. Return in a month for follow-up. Return to the office as scheduled or as needed for worsening/no improvement. Yesi Cody APRN.FLOUR TESTER The patient indicates understanding of these issues and agrees with the plan. XR ANKLE MINIMUM 3 Observed: 11/24/2017 Status: F Source: [facility] VIEWS RIGHT 9:16 PM [facility] REPOSITORY ORIGINAL XR ANKLE MINIMUM 3 VIEWS RIGHT CLINICAL STATEMENT: injury. Patient rolled ankle on stairs COMPARISON: None FINDINGS: No acute fracture or dislocation is identified. The ankle mortise and talar dome are normal. The joint spaces are maintained. IMPRESSION: No acute fracture or dislocation. I have personally reviewed the images of this examination and agree with the resident's findings and interpretation. Interpreted By: Girish Jorge MD Preliminary Report By: Davina Alcaraz DO Electronically Signed By: Girish Jorge MD Dictated Date: 11/24/2017 9:23:35 PM Prelim Date: 11/24/2017 9:24:52 PM Sign Date: 11/24/2017 10:02:12 PM 12 LEAD ELECTROCARDIOGRAM Observed: 11/10/2017 Status: F Source: [place] 8:38 AM [facility] REPOSITORY [facility] Cardiovascular Services [address] [place] [address] 12 Lead EKG 10/24/17 2236 MR#: [id number] Acct: [id number] Name: KEILY RASMUSSEN Rep #: [id number] : 1995 22 From: Sterling Wells MD Attending Dr: Status: DEP ER Ordering Dr: Irma Sainz MD Date: 10/24/17 Location: ED Sex: F C Admitted: Test Reason : CP Blood Pressure : / mmHG Vent. Rate : 067 BPM Atrial Rate : 067 BPM P-R Int : 152 ms QRS Dur : 144 ms QT Int : 432 ms P-R-T Axes : 029 018 131 degrees QTc Int : 456 ms Normal sinus rhythm Left bundle branch block Abnormal ECG Confirmed by STERLING WELLS ([id number]), food editor MERVIN RODRIGUEZ ([id number]) on 11/03/2017 6:11:19 PM Referred By: YORDY Confirmed By:STERLING WELLS 11/03/17 1811 Date Sterling Wells MD CC: Irma Sainz MD; Ken Barnes MD Signed HISTORY PHYSICAL Observed: 11/05/2017 Status: COMPLETED Source: [place] 2:42 PM [facility] REPOSITORY HNO ID: [id number] Author: Dora Sandy Service: (none) Author Type: Physician Type: HANDP Filed: 11/05/2017 3:08 PM Note Text: [facility] New Patient Evaluation Keily Rasmussen was evaluated at the [facility] on November 05, 2017 Time out: 3:05 Time in: 2:30 For this visit, a total cekw-rm-wcba time with the patient comprised 35 minutes, with at least 50% of that time devoted to wuaz-kr-tbuv counseling and coordination of care, with especial emphasis placed on answering the patient?s and/or family?s questions in a form that they can understand and appreciate. PATIENT NAME: Keily Rasmussen DATE OF SERVICE: November 05, 2017 Insurance: [facility] Location: [facility] CONSULTING PROVIDER: Jos Barnes MD [address] [facility] [id number] REASON FOR CONSULT: Jos Platt) Cameron sends the patient for an opinion about treatting QUINTON. My findings and recommendations will be transmitted electronically via shared medical record to the consulting provider. Relevant Medications, allergies, hx Reviewed: yes HPI: Keily Rasmussen is a 22 year old female. Sleep-related history: pt has been fatigued for the longest time. But in April or so it got worse for unexplained reasons, and she became more assertive about asking doctors about it. So far no clear explanations for the fatigue, or the obesity. However, today Ms. Cody ordered a pSG to address this. Will agree. For the past 2 weeks pt Has had some episodes when she will sit up in bed, talk, but not remember it lately. Other relevant history includes PCOS, Aortic stenosis, Morbid obesity HTN, Asthma. SLEEP-WAKE SCHEDULE Bedtime: if at home, 11 pm. Activities before going to bed: tv, movies, games. Reading, TV, Computer in bed? no Sleep Latency: about 1 hours lately. Wake After Sleep Onset: may remember waking up once through the nighgt. Wake time: 6 or 7. Now recently more like 7:30 or 8. Time Out of Bed: as above Can Nap if wants to: Sometimes. She does not normally nap, but can fall asleep just by sitting here. On weekends, she maintains the same sleep schedule. Average total sleep time (in a 24 hour period): probably 10. hours. She is a self-described night person SLEEP-RELATED DETAILS Preferred sleep position: stomach. Breathing disturbances and other general behaviors during sleep: Snoring: yes stopping breathing during sleep no moving around a lot yes frequent leg movements yes WAKE-RELATED DETAILS Kind of Work: [employer]. She works but is not a shift worker. Problems with: Memory : bad concentration. bad Irritability: yes Fatigue: yes Demoralization: yes Role Impairment: yes She denies falling asleep or dozing off when driving. Substance Use/Diet: Caffeine: Slacking down. Maybe 6 cans a day. Tobacco: 1/2 ppd. Alcohol: no Vegetarian no Marijuana, Street Drugs: smoke MJ Every day. Weight has been varying about 4 lbs in the last month. HYPERSOMNIA: Self-reported daytime sleepiness has been a problem. There is no history of a viral illness or significant head injury prior to the start of daytime sleepiness. Cataplexy: na Hypnagogic hallucinations: no Dream enactment behaviors: no Sleep related injuries: no SLEEP DISORDER SYMPTOMS She does not report having an urge to move the legs in the evening (when resting) that is accompanied or caused by uncomfortable and/or unpleasant sensations in the legs. She has not been told that she has leg kicking during sleep. The patient reports about: Itching affecting sleep: yes; All over. Now from bug bites. Sleep paralysis: no Sleep talking or walking: talking Nightmares: Frequency: no Night terrors. Frequency: no Eating at night: no Bed Wetting: Frequency: no OTHER SLEEP BEHAVIORS/COMPLAINTS: Pain at night: no Racing thoughts or rumination: yes Morning Headache: yes Bruxism: told so. Waking up with heart pounding or racing: no Nocturnal GERD or aspiration: yes Nocturia no PAST TREATMENTS: no PRIOR SLEEP STUDIES: Scheduled. OTHER RELEVANT LABS AND STUDIES: Bicarb: 22 BMI 47 A1c: 4.8 Vit D: na Ferritin na TSH: 2.7 Imaging no Ejection fraction 68% PAST MEDICAL HISTORY Diagnosis Date - Aortic stenosis s/p repair of a PDA and subvalvular aortic stenosis. Sees Dr. Haider and Dr. Marie - Asthma - Morbid obesity (HCC) - PCOS (polycystic ovarian syndrome) elevated testosterone and elevated insulin - PDA (patent ductus arteriosus) s/p repair age 10 - Tobacco use PAST SURGICAL HISTORY Procedure Laterality Date - PAST SURGICAL HISTORY OF Repair of a PDA and subvalvular aortic stenosis-childhood ACTIVE PROBLEM LIST Heart Valve Stenosis Obesity, Class Iii, Bmi 40-49.9 (Morbid Obesity) (Hcc) Hyperinsulinemia Adjustment Disorder With Mixed Anxiety and Depressed Mood Seasonal Allergic Rhinitis Due to Pollen Morbid Obesity (Hcc) Asthma Aortic Stenosis Pcos (Polycystic Ovarian Syndrome) Pre-Op Testing Discharge Planning Issues Acute Post-Operative Pain Atelectasis Essential Hypertension Transition of Care Performed With Sharing of Clinical Summary Nicotine use disorder, F17.2 Allergies As of Date: 11/05/2017 Allergen Noted Reaction PENICILLINS 11/28/2014 Hives TETANUS AND DIPHTHERIA TOXOIDS, A*04/14/2017 Rash Fully Assessed 11/05/2017 CURRENT MEDICATIONS: albuterol HFA (VENTOLIN HFA) 90 mcg/actuation inhaler Inhale 2 Puffs as instructed every 4 hours as needed. escitalopram oxalate (LEXAPRO) 10 mg tablet Start 1/2 pill daily X 1 week; then increase to a whole pill daily. vit-iron fumarate-fa ( MULTIVITAMINS) 28 mg iron- 800 mcg tab Take 1 tablet by mouth once daily. acetaminophen (TYLENOL) 325 mg tablet Take 2 tablets by mouth every 6 hours as needed for Pain or Fever. REVIEW OF SYSTEMS Sleep related General - See HPI. HEENT Eye Problems (eg. Cataracts, glaucoma) no Septal Deviation no Nasal Congestion sniffles a lot Post-Nasal Drip Sniffles. Mouth Breathing yes Morning dry mouth/throat: yes RESPIRATORY Nocturnal dyspnea yes Dyspnea on exertion yes Wheezing yes Nocturnal cough yes CARDIOVASCULAR Heart failure yes Atrial Fibrillation yes Orthopnea no Heart Palpitations has before. Chest Discomfort no Hypertension no GASTROINTESTINAL Stomach pain during sleep no Blood In Stool no GENITOURINARY Renal Insufficiency no Menstrual pattern irregular Hot Flashes yes. 5 x a week. MUSCULOSKELETAL Hx of back or neck surgery: no Joint discomfort knees a problem. SKIN Rash yes ENDOCRINE Diabetes no Thyroid no Steroids of any kind (inc BCPs) no NEUROLOGICAL Headaches band-like headaches, 2 x a day, for 30 min and will go away. Any Seizure Hx no PSYCHIATRIC Recent stressors might be moving, dad 10 months ago, awaiting burial. Hx of psychiatric hospitalization no Hx of Maddie of any kind episodes of gigglin, but no problem. Prior Psychiatric Hx: depressoin. Substance abuse Hx denies. PTSD exposure no Current employment status: unemployed FAMILY HISTORY FAMILY HISTORY Problem Relation Age of Onset - COPD Mother - Thyroid Mother - Asthma Mother - Diabetes Father - Heart Father CO - Bone Disease [OTHER] Brother - COPD Sister - Diabetes Brother - Hypertension Maternal Grandmother - COPD Maternal Grandmother - Emphysema Maternal Grandmother - Heart Maternal Grandfather - Hypertension Maternal Grandfather - Cancer Paternal Uncle There is a family history of: Sleep apnea. Relative: mom and grandfather, and grandmother. Sleep disorders when a child/adolescent: denies knowledge. PHYSICAL EXAMINATION: Constitutional/ General appearance: Morbid obese MENTAL STATUS Grooming casual Orientation: Ox3 Memory: Grossly intact Kinetics: normal Eye Contact: good Speech: Articulate yes Level normal Rate normal Syntax standare Thought Stream logical, not that detailed Thought Content about getitng help for sleepiness and fatigue Mood: a varied amount, but has some happy moments Affect: bland Suicidal Ideation: no Homocidal Ideation: No Psychosis no Insight fair Judgment fair. Skin: Normal Eyes: PERRLA, EOMI without Nystagmus, ENT : Nasal congestion absent, Septal Deviation: no Nasal valve incompetence absent. Posterior airspace: moderate Mclean tongue position 3, retrognathia absent. Overjet: 1 mm. Overbite absent. High arched palate present. Tongue scalloping/ridging present. Uvula: small Neck circumference: 45 cm. thyromegaly or adenopathy absent. Chest: Regular S1 and S2, Systolic Murmurs 2/6, Lungs clear to auscultation in posterior gordon. Abdomen: Obese, pannus Extremities: Pretibial edema trace, Clubbing no Neuro: Gait and station normal for weight, Strength grossly normal in all extremities. Coordination grossly intact. No tremors noted. Actions taken: Motivational Interviewing aspects taken Explaining out process Explained QUINTON's significan IMPRESSION/PLAN Regarding Sleep Disorder Diagnoses: Obstructive Sleep Apnea Sleep talking 0- prob due to QUINTON. Other Diagnoses conditioning the treatment plan: Morbid obesity HTN PCOS. Case Formulation / Eldred (may include pt's hopes, fears, expectations, concerns): Will benefit from [facility] Follow up in [facility] in mid to late december. Plan for pt going to [facility] once QUINTON is documented by [facility]. . Dora Sandy MD Beeper: [id number] CNOV Observed: 11/05/2017 Status: COMPLETED Source: [place] 1:40 PM [facility] REPOSITORY Office Visit ([place]) RODO RASMUSSENNICO Martin ([id number]) 1995 F Date Time Provider Department 11/05/17 1:40 PM DORA SANDY During your visit today, we recorded the following information about you: Pulse Respiration Blood pressure Weight 87/minute 18/minute 137/72 139.3 kg Dora Sandy MD 11/05/2017 3:08 PM Signed [facility] New Patient Evaluation Keily Rasmussen was evaluated at the [place] location on November 05, 2017 Time out: 3:05 Time in: 2:30 For this visit, a total xmyw-oa-nhya time with the patient comprised 35 minutes, with at least 50% of that time devoted to hbst-fv-[id number] counseling and coordination of care, with especial emphasis placed on answering the patient?s and/or family?s questions in a form that they can understand and appreciate. PATIENT NAME: Keily Rasmussen DATE OF SERVICE: November 05, 2017 Insurance: [facility] Home Location: [facility] CONSULTING PROVIDER: Jos Barnes MD [address] [facility] [id number] REASON FOR CONSULT: Jos Yarbrough () Cameron sends the patient for an opinion about treatting QUINTON. My findings and recommendations will be transmitted electronically via shared medical record to the consulting provider. Relevant Medications, allergies, hx Reviewed: yes HPI: Keily Rasmussen is a 22 year old female. Sleep-related history: pt has been fatigued for the longest time. But in April or so it got worse for unexplained reasons, and she became more assertive about asking doctors about it. So far no clear explanations for the fatigue, or the obesity. However, today Ms. Cody ordered a pSG to address this. Will agree. For the past 2 weeks pt Has had some episodes when she will sit up in bed, talk, but not remember it lately. Other relevant history includes PCOS, Aortic stenosis, Morbid obesity HTN, Asthma. SLEEP-WAKE SCHEDULE Bedtime: if at home, 11 pm. Activities before going to bed: tv, movies, games. Reading, TV, Computer in bed? no Sleep Latency: about 1 hours lately. Wake After Sleep Onset: may remember waking up once through the nighgt. Wake time: 6 or 7. Now recently more like 7:30 or 8. Time Out of Bed: as above Can Nap if wants to: Sometimes. She does not normally nap, but can fall asleep just by sitting here. On weekends, she maintains the same sleep schedule. Average total sleep time (in a 24 hour period): probably 10. hours. She is a self-described night person SLEEP-RELATED DETAILS Preferred sleep position: stomach. 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 Problems with: Memory : bad concentration. bad Irritability: yes Fatigue: yes Demoralization: yes Role Impairment: yes She denies falling asleep or dozing off when driving. Substance Use/Diet: Caffeine: Slacking down. Maybe 6 cans a day. Tobacco: 1/2 ppd. Alcohol: no Vegetarian no Marijuana, Street Drugs: smoke MJ Every day. Weight has been varying about 4 lbs in the last month. HYPERSOMNIA: Self-reported daytime sleepiness has been a problem. There is no history of a viral illness or significant head injury prior to the start of daytime sleepiness. Cataplexy: na Hypnagogic hallucinations: no Dream enactment behaviors: no Sleep related injuries: no SLEEP DISORDER SYMPTOMS She does not report having an urge to move the legs in the evening (when resting) that is accompanied or caused by uncomfortable and/or unpleasant sensations in the legs. She has not been told that she has leg kicking during sleep. The patient reports about: Itching affecting sleep: yes; All over. Now from bug bites. Sleep paralysis: no Sleep talking or walking: talking Nightmares: Frequency: no Night terrors. Frequency: no Eating at night: no Bed Wetting: Frequency: no OTHER SLEEP BEHAVIORS/COMPLAINTS: Pain at night: no Racing thoughts or rumination: yes Morning Headache: yes Bruxism: told so. Waking up with heart pounding or racing: no Nocturnal GERD or aspiration: yes Nocturia no PAST TREATMENTS: no PRIOR SLEEP STUDIES: Scheduled. OTHER RELEVANT LABS AND STUDIES: Bicarb: 22 BMI 47 A1c: 4.8 Vit D: na Ferritin na TSH: 2.7 Imaging no Ejection fraction 68% PAST MEDICAL HISTORY Diagnosis Date - Aortic stenosis s/p repair of a PDA and subvalvular aortic stenosis. Sees Dr. Haider and Dr. Marie - Asthma - Morbid obesity (HCC) - PCOS (polycystic ovarian syndrome) elevated testosterone and elevated insulin - PDA (patent ductus arteriosus) s/p repair age 10 - Tobacco use PAST SURGICAL HISTORY Procedure Laterality Date - PAST SURGICAL HISTORY OF Repair of a PDA and subvalvular aortic stenosis-childhood ACTIVE PROBLEM LIST Heart Valve Stenosis Obesity, Class Iii, Bmi 40-49.9 (Morbid Obesity) (Hcc) Hyperinsulinemia Adjustment Disorder With Mixed Anxiety and Depressed Mood Seasonal Allergic Rhinitis Due to Pollen Morbid Obesity (Hcc) Asthma Aortic Stenosis Pcos (Polycystic Ovarian Syndrome) Pre-Op Testing Discharge Planning Issues Acute Post-Operative Pain Atelectasis Essential Hypertension Transition of Care Performed With Sharing of Clinical Summary Nicotine use disorder, F17.2 Allergies As of Date: 11/05/2017 Allergen Noted Reaction PENICILLINS 11/28/2014 Hives TETANUS AND DIPHTHERIA TOXOIDS, A*04/14/2017 Rash Fully Assessed 11/05/2017 CURRENT MEDICATIONS: albuterol HFA (VENTOLIN HFA) 90 mcg/actuation inhaler Inhale 2 Puffs as instructed every 4 hours as needed. escitalopram oxalate (LEXAPRO) 10 mg tablet Start 1/2 pill daily X 1 week; then increase to a whole pill daily. vit-iron fumarate-fa ( MULTIVITAMINS) 28 mg iron- 800 mcg tab Take 1 tablet by mouth once daily. acetaminophen (TYLENOL) 325 mg tablet Take 2 tablets by mouth every 6 hours as needed for Pain or Fever. REVIEW OF SYSTEMS Sleep related General - See HPI. HEENT Eye Problems (eg. Cataracts, glaucoma) no Septal Deviation no Nasal Congestion sniffles a lot Post-Nasal Drip Sniffles. Mouth Breathing yes Morning dry mouth/throat: yes RESPIRATORY Nocturnal dyspnea yes Dyspnea on exertion yes Wheezing yes Nocturnal cough yes CARDIOVASCULAR Heart failure yes Atrial Fibrillation yes Orthopnea no Heart Palpitations has before. Chest Discomfort no Hypertension no GASTROINTESTINAL Stomach pain during sleep no Blood In Stool no GENITOURINARY Renal Insufficiency no Menstrual pattern irregular Hot Flashes yes. 5 x a week. MUSCULOSKELETAL Hx of back or neck surgery: no Joint discomfort knees a problem. SKIN Rash yes ENDOCRINE Diabetes no Thyroid no Steroids of any kind (inc BCPs) no NEUROLOGICAL Headaches band-like headaches, 2 x a day, for 30 min and will go away. Any Seizure Hx no PSYCHIATRIC Recent stressors might be moving, dad 10 months ago, awaiting burial. Hx of psychiatric hospitalization no Hx of Maddie of any kind episodes of gigglin, but no problem. Prior Psychiatric Hx: depressoin. Substance abuse Hx denies. PTSD exposure no Current employment status: unemployed FAMILY HISTORY FAMILY HISTORY Problem Relation Age of Onset - COPD Mother - Thyroid Mother - Asthma Mother - Diabetes Father - Heart Father CO - Bone Disease [OTHER] Brother - COPD Sister - Diabetes Brother - Hypertension Maternal Grandmother - COPD Maternal Grandmother - Emphysema Maternal Grandmother - Heart Maternal Grandfather - Hypertension Maternal Grandfather - Cancer Paternal Uncle There is a family history of: Sleep apnea. Relative: mom and grandfather, and grandmother. Sleep disorders when a child/adolescent: denies knowledge. PHYSICAL EXAMINATION: Constitutional/ General appearance: Morbid obese MENTAL STATUS Grooming casual Orientation: Ox3 Memory: Grossly intact Kinetics: normal Eye Contact: good Speech: Articulate yes Level normal Rate normal Syntax standare Thought Stream logical, not that detailed Thought Content about getitng help for sleepiness and fatigue Mood: a varied amount, but has some happy moments Affect: bland Suicidal Ideation: no Homocidal Ideation: No Psychosis no Insight fair Judgment fair. Skin: Normal Eyes: PERRLA, EOMI without Nystagmus, ENT : Nasal congestion absent, Septal Deviation: no Nasal valve incompetence absent. Posterior airspace: moderate Mclean tongue position 3, retrognathia absent. Overjet: 1 mm. Overbite absent. High arched palate present. Tongue scalloping/ridging present. Uvula: small Neck circumference: 45 cm. thyromegaly or adenopathy absent. Chest: Regular S1 and S2, Systolic Murmurs 2/6, Lungs clear to auscultation in posterior gordon. Abdomen: Obese, pannus Extremities: Pretibial edema trace, Clubbing no Neuro: Gait and station normal for weight, Strength grossly normal in all extremities. Coordination grossly intact. No tremors noted. Actions taken: Motivational Interviewing aspects taken Explaining out process Explained QUINTON's significan IMPRESSION/PLAN Regarding Sleep Disorder Diagnoses: Obstructive Sleep Apnea Sleep talking 0- prob due to QUINTON. Other Diagnoses conditioning the treatment plan: Morbid obesity HTN PCOS. Case Formulation / Eldred (may include pt's hopes, fears, expectations, concerns): Will benefit from [facility] Follow up in [facility] clinic in mid to late december. Plan for pt going to [facility] once QUINTON is documented by [facility]. . Dora Sandy MD Beeper: [id number] Referring Provider: JOS BARNES) [[id number]] Allergies As of Date: 11/05/2017 Noted Allergy Reaction PENICILLINS 11/28/2014 4 - Hives TETANUS AND DIPHTHERIA TOXOIDS, A*04/14/2017 2 - Rash Comments: Local erythema and swelling in the affected arm. Date Reviewed: 11/05/2017 Reviewed by: Irene Pimentel LPN - Fully Assessed Reason for Visit: Sleep Problem [100] Primary Visit Diagnosis:Aortic valve stenosis, etiology of cardiac valve disease unspecified [I35.0] Other Visit Diagnoses:QUINTON (obstructive sleep apnea) [G47.33] Essential hypertension [I10] Obesity, Class III, BMI 40-49.9 (morbid obesity) (HCC) [E66.01] PCOS (polycystic ovarian syndrome) [E28.2] Prescriptions as of 11/05/2017 Sig: ALBUTEROL SULFATE HFA 90 MCG/* Inhale 2 Puffs as instructed * ESCITALOPRAM 10 MG TABLET Start 1/2 pill daily X 1 week* VIT NO.95-FERROUS FU* Take 1 tablet by mouth once d* ACETAMINOPHEN 325 MG TABLET Take 2 tablets by mouth every* Problem List As Of Date 11/05/2017 Noted Resolved Heart valve stenosis [I38] INVALID FOR* Obesity, Class III, BMI 40-49.9 (morbid obesity*INVALID FOR* Hyperinsulinemia [E16.1] INVALID FOR* Adjustment disorder with mixed anxiety and depr*INVALID FOR* Priority: C More... Seasonal allergic rhinitis due to pollen [J30.1]INVALID FOR* Morbid obesity (HCC) [E66.01] Asthma [J45.909] Priority: B More... Aortic stenosis [I35.0] Priority: A More... PCOS (polycystic ovarian syndrome) [E28.2] More... Pre-op testing [Z01.818] INVALID FOR* More... Discharge planning issues [Z02.9] INVALID FOR* Priority: D More... On mechanically assisted ventilation (HCC) [Z99*INVALID FOR*06/18/2017 Priority: B More... Acute post-operative pain [G89.18] INVALID FOR* Priority: C More... Atelectasis [J98.11] INVALID FOR* Priority: B More... Hypovolemia [E86.1] INVALID FOR*06/18/2017 Priority: F More... Essential hypertension [I10] INVALID FOR* Priority: C More... Transition of care performed with sharing of cl*INVALID FOR* Priority: Very Severe More... Nicotine use disorder, F17.2 [F17.200] INVALID FOR* QUINTON (obstructive sleep apnea) [G47.33] INVALID FOR* Follow-up and Disposition History Recorded Encounter Status:Closed by MD DORA SANDY on 11/05/17 CBC Collected: 11/05/2017 Status: F Source: [place] 10:38 [facility] TYPE CODE TESTS RESULT OUT OF REFERENCE UNITS RANGE LAB WBC 3.70-11.00 k/uL WBC 10.40 LAB RBC 3.90-5.20 m/uL RBC High 5.32 LAB HGB 11.5-15.5 g/dL Hemoglobin 12.6 LAB HCT 36.0-46.0 % Hematocrit 41.5 LAB MCV 80.0-100.0 fL Low MCV 78.0 LAB MCH 26.0-34.0 pG Low MCH 23.7 LAB MCHC 30.5-36.0 g/dL Low MCHC 30.4 LAB RDWCV 11.5-15.0 % RDW-CV High 17.6 LAB PLTCT 150-400 k/uL Platelet Count 358 LAB MPV 9.0-12.7 fL MPV 9.7 LAB ABSNUC <0.01 k/uL Absolute nRBC <0.01 Performed By: #### CBC, CMP, TSH, HBA1C #### [facility] [address] [place], [place] [address] COMP METABOLIC PANEL Collected: 11/05/2017 Status: F Source: [place] 10:38 AM [facility] REPOSITORY TYPE CODE TESTS RESULT OUT OF REFERENCE UNITS RANGE LAB TP 6.3-8.0 g/dL Protein, Total 7.1 LAB ALB 3.9-4.9 g/dL Albumin 3.9 LAB CA 8.5-10.2 mg/dL Calcium, Total 9.6 LAB TBIL 0.2-1.3 mg/dL Bilirubin, Total 0.2 LAB ALKP 32-117 U/L Alkaline Phosphatase 86 LAB AST 13-35 U/L AST 23 LAB GLU 74-99 mg/dL Glucose 85 Result Comment: The [place] [employer] (ADA) provides guidance for cutoff values for fasting glucose and random glucose. The ADA defines fasting as no caloric intake for at least 8 hours. Fas ting plasma glucose results between 100 to 125 mg/dL indicate increased risk for diabetes (prediabetes). Fasting plasma glucose results greater than or equal to 126 mg/dL meet the criteria for diagnosis of diabetes. In the absence of unequivocal hyperglycemia, results should be confirmed by repeat testing. In a patient with classic symptoms of hyperglycemia or hyperglycemic crisis, random plasma glucose results greater than or equal to 200 mg/dL meet the criteria for diagnosis of diabetes. Reference: Standards of Medical Care in Diabetes 2016, [place] [employer]. Diabetes Care. 2016.39(Suppl 1). LAB BUN 7-21 mg/dL BUN 7 LAB CRET 0.58-0.96 mg/dL Creatinine 0.58 LAB NA 136-144 mmol/L Sodium 138 LAB K 3.7-5.1 mmol/L Potassium 4.2 LAB CL 97-105 mmol/L Chloride 103 LAB CO2 22-30 mmol/L CO2 24 LAB AGAP 9-18 mmol/L Anion Gap 11 LAB ALT 7-38 U/L ALT 17 LAB GFRAA eGFR- Amer. >60 LAB GFRNAA . eGFR-All Other Races >60 Result Comment: eGFR (Estimated GFR) Units of measure: mL/min/1.73 meters squared eGFR is derived from the reexpressed MDRD Study equation using the following parameters: serum creatinine, age, gender and race. The creatinine assay has been calibrated to be traceable to IDMS. An eGFR <60 mL/min/1.73m2 for >3 months is consistent with chronic kidney disease. Refer to KDOQI guidelines for clinical interpretation. In patients with unstable renal function, e.g. those with acute kidney injury, the eGFR may not accurately reflect actual GFR. Performed By: #### CBC, CMP, TSH, HBA1C #### [facility] [address] [place], [place] [address] TSH Collected: 11/05/2017 Status: F Source: [place] 10:38 AM [facility] [place] REPOSITORY TYPE CODE TESTS RESULT OUT OF RANGE REFERENCE UNITS LAB TSH 0.400-5.500 uU/mL TSH 3.700 Result Comment: If the patient is , TSH reference range varies by gestational period: First Trimester 0.100-2.500 uU/mL Second Trimester 0.200-3.000 uU/mL Third Trimester 0.300-3.000 uU/mL References: 1. Hart L, Stephanie M, Abilio EK, et al. Management of Thyroid Dysfunction during and : An Endocrine Society Clinical Practice Guideline. J Clin Endocrinol Metab, 2012:97:1867-1378. 2. Mitch DUQUE. Overview of thyroid disease in . UpToDate. 2016. Accessed on November 10, 2015. Performed By: #### CBC, CMP, TSH, HBA1C #### [facility] [address] [place], [place] [address] HEMOGLOBIN A1C Collected: 11/05/2017 Status: F Source: [place] 10:38 AM [facility] REPOSITORY TYPE CODE TESTS RESULT OUT OF REFERENCE UNITS RANGE LAB HGBA1C 4.3-5.6 % Hemoglobin A1c 5.2 LAB HBA0 mg/dL Est. Average Glucose 103 Result Comment: eAG: (Estimated average glucose) is a calculated value from HgbA1c and is customer service representative teacher of the average blood glucose level in the last 2-3 month period. Performed By: #### CBC, CMP, TSH, HBA1C #### [facility] [address] [place], [place] [address] CNOV Observed: 11/05/2017 Status: COMPLETED Source: [place] 9:40 AM [facility] REPOSITORY Office Visit (FAMPWS) KEILY RASMUSSEN ([id number]) 1995 F Date Time Provider Department 11/05/17 9:40 AM [facility] During your visit today, we recorded the following information about you: Pulse Respiration Blood pressure Weight 74/minute 14/minute 118/76 139.3 kg Yesi Cody APRN.CNP 11/05/2017 10:27 AM Signed This is a 22 year old female who presents today with: Patient presents with: Fatigue HISTORY OF PRESENT ILLNESS: Keily Martin Valery is a 22 year old female. Patient presents with: Fatigue Pt presents with fatigue. Had open heart surgery in May. Sleeping for 8 hours a night. Will get up for 2 hours and then will go back to sleep again. Refers she will start dozing off. Will sleep for another 4-5 hours. This started in May. Thought it was related to her surgery. Goes to bed around 11:00. Gets up around 9:00 - 10:00. Does not work. No exercise -- refers watching kids. Watches the kids from 12:00-6:00. She does snore. Will sometimes wake self up when she is starting to fall asleep. Has been getting palpitations. Usually at rest. No accompanying symptoms. Happens once daily. Hasn't mentioned to cardiology, as it started after he last visit there in August. Admits to consuming a lot of caffeine -- has been cutting back. Admits mood hasn't been good. Hx of depression and was treated for this in the past. Desires to go back on medication. Denies suicidal/homicidal plans/intentions after direct questioning. CP PHQ9 11/05/2017 Little interest or pleasure 1 - Several days Feeling down, depressed, hopeless 1 - Several days Trouble falling or staying asleep, sleeping too much 3 - nearly every day Feeling tired, having little energy 3 - Nearly every day Poor appetite or overeating 3 - Nearly every day Feeling bad about yourself, failure or you have let yourself/family down 2 - More than half the days Trouble concentrating on things 2 - More than half the days Moving or speaking so slowly, or fidgety or restless 1 - Several days Thoughts that you would be better off , or of hurting yourself in some way 1 - Several days How difficult have these problems made things Very difficult Interpretation of Total Score 15-19 Moderately severe depression REVIEW OF SYSTEMS GENERAL: No weight loss, malaise or fevers/chills HEENT: Negative for frequent or significant headaches, No changes in hearing or vision. RESPIRATORY: Negative for cough, hemoptysis, wheezing, dyspnea. Gets winded easily. Uses inhaler about twice weekly, which helps. CARDIOVASCULAR: Negative for chest pain, leg swelling, orthopnea. + palpitations -- usually at rest. GI: No nausea, vomiting, or diarrhea. + constipation. + heartburn -- not treated. : No history of dysuria, frequency or incontinence. Refers that she urinates a lot. SKIN: Negative for lesions, rash, and itching ENDOCRINE: Negative for cold or heat intolerance. Admits to excessive thirst and excessive urination. Hx of borderline diabetic. PAST MEDICAL HISTORY: PAST MEDICAL HISTORY Diagnosis Date - Aortic stenosis s/p repair of a PDA and subvalvular aortic stenosis. Sees Dr. Haider and Dr. Marie - Asthma - Morbid obesity (HCC) - PCOS (polycystic ovarian syndrome) elevated testosterone and elevated insulin - PDA (patent ductus arteriosus) s/p repair age 10 - Tobacco use PAST SURGICAL HISTORY Procedure Laterality Date - PAST SURGICAL HISTORY OF Repair of a PDA and subvalvular aortic stenosis-childhood ALLERGIES Penicillins; Tetanus And Diphtheria Toxoids, Adsorbed, Adult MEDICATIONS Current Outpatient Prescriptions: vit-iron fumarate-fa ( MULTIVITAMINS) 28 mg iron- 800 mcg tab Take 1 tablet by mouth once daily. acetaminophen (TYLENOL) 325 mg tablet Take 2 tablets by mouth every 6 hours as needed for Pain or Fever. albuterol HFA (VENTOLIN HFA) 90 mcg/actuation inhaler Inhale 2 Puffs as instructed every 4 hours as needed. No current facility-administered medications for this visit. FAMILY HISTORY Problem Relation Age of Onset - COPD Mother - Thyroid Mother - Asthma Mother - Diabetes Father - Heart Father CO - Bone Disease [OTHER] Brother - COPD Sister - Diabetes Brother - Hypertension Maternal Grandmother - COPD Maternal Grandmother - Emphysema Maternal Grandmother - Heart Maternal Grandfather - Hypertension Maternal Grandfather - Cancer Paternal Uncle Social History Marital status: Single Spouse name: Years of education: Number of children: Occupational History Occupation Employer Comment Unemployed Social History Main Topics Smoking status: Current Every Day Smoker Packs/day: 0.50 Years: 2.00 Types: Cigarettes Smokeless tobacco: Never Used Alcohol use: No Drug use: No Sexual activity: Yes Partners with: Male EXAM: BP 118/76 (BP Site: Left Arm, BP Position: Sitting, BP Cuff Size: Large Adult) Pulse 74 Resp 14 Wt (!) 139.3 kg (307 lb) BMI 48.08 kg/m? PHYSICAL EXAM: General Appearance: Well appearing, alert, in no acute distress, well-hydrated, well nourished.. Skin: Skin color, texture, turgor normal, no suspicious rashes or lesions. Head: Normocephalic, no masses, lesions, tenderness or abnormalities. Eyes: Anicteric sclera. Pupils are equally round and reactive to light. Extraocular movements are intact. . Ears: External ears normal, canals clear, Normal TMs bilaterally. Oropharynx: Lips, mucosa, and tongue normal, teeth and gums normal, oropharynx normal. Neck: Supple, no adenopathy; thyroid symmetric, normal size, no bruits. Lungs: Lungs clear to auscultation. No wheezing, rhonchi, rales. Heart: RRR without murmur, gallop, or rubs. No ectopy. Abdomen: Abdomen soft, non-tender. Bowel sounds normal. No masses, organomegaly. Extremities: No deformities, edema, skin discoloration, clubbing or cyanosis. Good capillary refill. Peripheral Pulses: Normal. Neurologic: Gait normal. ASSESSMENT/PLAN: 1. Fatigue, unspecified type - ICD9: 780.79, ICD10: R53.83 (primary diagnosis) - TSH BLD - CBC - HGB A1C - COMP METABOLIC PANEL - HCG QUAL UR B/O - POLYSOMNOGRAM (PSG)/HOME SLEEP APNEA TESTING (HSAT) - CONSULT TO SLEEP MEDICINE - ADULT Also encouraged to increase activity. 2. Mild intermittent asthma without complication - ICD9: 493.90, ICD10: J45.20 Mild intermittent Asthma stable - Continue current meds - Avoidance of triggers recommended - ALBUTEROL SULFATE HFA 90 MCG/ACTUATION AEROSOL INHALER 3. Other depression - ICD9: 311, ICD10: F32.89 - ESCITALOPRAM 10 MG TABLET 4. Palpitations - ICD9: 785.1, ICD10: R00.2 - HOLTER MONITOR 48 HOUR - may be secondary to increased caffeine intake. Will get holter. Discussed treatment plan and patient voices understanding. Patient's questions answered appropriately. Medications and potential side effects were discussed and patient voices understanding. Return to the office as scheduled in 1 month or as needed for worsening/no improvement. Yesi Cody APRN.JOHN Cody APRN.JOHN 11/05/2017 9:56 AM Addendum 1. Labs today. 2. Get sleep study. 3. When starting with daytime fatigue - -try to go out and walk for 10 minutes. 4. Start the lexapro -- 1/2 pill daily X 1 week; then increase to a whole pill daily. 5. Recheck in 1 month. Referring Provider: SELF [200] Allergies As of Date: 11/05/2017 Noted Allergy Reaction PENICILLINS 11/28/2014 4 - Hives TETANUS AND DIPHTHERIA TOXOIDS, A*04/14/2017 2 - Rash Comments: Local erythema and swelling in the affected arm. Date Reviewed: 11/05/2017 Reviewed by: Irene Pimentel LPN - Fully Assessed Reason for Visit: Fatigue [46] Primary Visit Diagnosis:Fatigue, unspecified type [R53.83] Other Visit Diagnoses:Mild intermittent asthma without complication [J45.20] Other depression [F32.89] Palpitations [R00.2] Obesity, Class III, BMI 40-49.9 (morbid obesity) (HCC) [E66.01] Snoring [R06.83] Order(s):TSH BLD [SQTSH] Order #: [id number] FUTURE CBC [SQCBC] Order #: [id number] FUTURE HGB A1C [IGRHD7P] Order #: [id number] FUTURE COMP METABOLIC PANEL [SQCMP] Order #: [id number] FUTURE HCG QUAL UR B/O [[id number]] Order #: [id number] albuterol HFA (VENTOLIN HFA) 90 mcg/actuation inhalerInhale 2 Puffs as instructed every 4 hours as needed.Disp: 1 InhalerRfl: 1 POLYSOMNOGRAM (PSG)/HOME SLEEP APNEA TESTING (HSAT) [[id number]] Order #: [id number] FUTURE CONSULT TO SLEEP MEDICINE - ADULT [[id number]] Order #: [id number]: 1 escitalopram oxalate (LEXAPRO) 10 mg tabletStart 1/2 pill daily X 1 week; then increase to a whole pill daily.Disp: 30 tabletRfl: 2 HOLTER MONITOR 48 HOUR [[id number]] Order #: [id number] FUTURE Prescriptions as of 11/05/2017 Sig: ALBUTEROL SULFATE HFA 90 MCG/* Inhale 2 Puffs as instructed * VIT NO.95-FERROUS FU* Take 1 tablet by mouth once d* ACETAMINOPHEN 325 MG TABLET Take 2 tablets by mouth every* ESCITALOPRAM 10 MG TABLET Start 1/2 pill daily X 1 week* Problem List As Of Date 11/05/2017 Noted Resolved Heart valve stenosis [I38] INVALID FOR* Obesity, Class III, BMI 40-49.9 (morbid obesity*INVALID FOR* Hyperinsulinemia [E16.1] INVALID FOR* Adjustment disorder with mixed anxiety and depr*INVALID FOR* Priority: C More... Seasonal allergic rhinitis due to pollen [J30.1]INVALID FOR* Morbid obesity (HCC) [E66.01] Asthma [J45.909] Priority: B More... Aortic stenosis [I35.0] Priority: A More... PCOS (polycystic ovarian syndrome) [E28.2] More... Pre-op testing [Z01.818] INVALID FOR* More... Discharge planning issues [Z02.9] INVALID FOR* Priority: D More... On mechanically assisted ventilation (HCC) [Z99*INVALID FOR*06/18/2017 Priority: B More... Acute post-operative pain [G89.18] INVALID FOR* Priority: C More... Atelectasis [J98.11] INVALID FOR* Priority: B More... Hypovolemia [E86.1] INVALID FOR*06/18/2017 Priority: F More... Essential hypertension [I10] INVALID FOR* Priority: C More... Transition of care performed with sharing of cl*INVALID FOR* Priority: Very Severe More... Nicotine use disorder, F17.2 [F17.200] INVALID FOR* QUINTON (obstructive sleep apnea) [G47.33] INVALID FOR* Other instructions from your clinician: 1. Labs today. 2. Get sleep study. 3. When starting with daytime fatigue - -try to go out and walk for 10 minutes. 4. Start the lexapro -- 1/2 pill daily X 1 week; then increase to a whole pill daily. 5. Recheck in 1 month. Prescriptions ordered this encounter Disp Refills Start End ALBUTEROL SULFATE HFA 90 MCG/ACTUATI* 1 In* 1 11/05/2017 Route: INHALATION Sig: Inhale 2 Puffs as instructed every 4 hours as needed. ESCITALOPRAM 10 MG TABLET 30 t* 2 11/05/2017 Sig: Start 1/2 pill daily X 1 week; then increase to a whole pill daily. Medications Discontinued During This Encounter albuterol HFA (VENTOLIN HFA) 90 mcg/* 1 In* 1 05/30/2017 11/05/2017 Route: INHALATION Sig: Inhale 2 Puffs as instructed every 4 hours as needed. Disc: Reason for discontinue is not on file. Disposition: Return in about 1 month (around 12/05/2017), or if symptoms worsen or fail to improve, for med recheck, depression. Follow-up and Disposition History Recorded Encounter Status:Closed by YESI CODY CNP on 11/05/17 PROGRESS Observed: 11/05/2017 Status: COMPLETED Source: [place] 9:[address] [facility] REPOSITORY HNO ID: [id number] Author: Yesi Cody Service: (none) Author Type: Nurse Practitioner Type: Progress Notes Filed: 11/05/2017 10:27 AM Note Text: This is a 22 year old female who presents today with: Patient presents with: Fatigue HISTORY OF PRESENT ILLNESS: Keily Rasmussen is a 22 year old female. Patient presents with: Fatigue Pt presents with fatigue. Had open heart surgery in May. Sleeping for 8 hours a night. Will get up for 2 hours and then will go back to sleep again. Refers she will start dozing off. Will sleep for another 4-5 hours. This started in May. Thought it was related to her surgery. Goes to bed around 11:00. Gets up around 9:00 - 10:00. Does not work. No exercise -- refers watching kids. Watches the kids from 12:00-6:00. She does snore. Will sometimes wake self up when she is starting to fall asleep. Has been getting palpitations. Usually at rest. No accompanying symptoms. Happens once daily. Hasn't mentioned to cardiology, as it started after he last visit there in August. Admits to consuming a lot of caffeine -- has been cutting back. Admits mood hasn't been good. Hx of depression and was treated for this in the past. Desires to go back on medication. Denies suicidal/homicidal plans/intentions after direct questioning. CP PHQ9 11/05/2017 Little interest or pleasure 1 - Several days Feeling down, depressed, hopeless 1 - Several days Trouble falling or staying asleep, sleeping too much 3 - nearly every day Feeling tired, having little energy 3 - Nearly every day Poor appetite or overeating 3 - Nearly every day Feeling bad about yourself, failure or you have let yourself/family down 2 - More than half the days Trouble concentrating on things 2 - More than half the days Moving or speaking so slowly, or fidgety or restless 1 - Several days Thoughts that you would be better off , or of hurting yourself in some way 1 - Several days How difficult have these problems made things Very difficult Interpretation of Total Score 15-19 Moderately severe depression REVIEW OF SYSTEMS GENERAL: No weight loss, malaise or fevers/chills HEENT: Negative for frequent or significant headaches, No changes in hearing or vision. RESPIRATORY: Negative for cough, hemoptysis, wheezing, dyspnea. Gets winded easily. Uses inhaler about twice weekly, which helps. CARDIOVASCULAR: Negative for chest pain, leg swelling, orthopnea. + palpitations -- usually at rest. GI: No nausea, vomiting, or diarrhea. + constipation. + heartburn -- not treated. : No history of dysuria, frequency or incontinence. Refers that she urinates a lot. SKIN: Negative for lesions, rash, and itching ENDOCRINE: Negative for cold or heat intolerance. Admits to excessive thirst and excessive urination. Hx of borderline diabetic. PAST MEDICAL HISTORY: PAST MEDICAL HISTORY Diagnosis Date - Aortic stenosis s/p repair of a PDA and subvalvular aortic stenosis. Sees Dr. Haider and Dr. Marie - Asthma - Morbid obesity (HCC) - PCOS (polycystic ovarian syndrome) elevated testosterone and elevated insulin - PDA (patent ductus arteriosus) s/p repair age 10 - Tobacco use PAST SURGICAL HISTORY Procedure Laterality Date - PAST SURGICAL HISTORY OF Repair of a PDA and subvalvular aortic stenosis-childhood ALLERGIES Penicillins; Tetanus And Diphtheria Toxoids, Adsorbed, Adult MEDICATIONS Current Outpatient Prescriptions: vit-iron fumarate-fa ( MULTIVITAMINS) 28 mg iron- 800 mcg tab Take 1 tablet by mouth once daily. acetaminophen (TYLENOL) 325 mg tablet Take 2 tablets by mouth every 6 hours as needed for Pain or Fever. albuterol HFA (VENTOLIN HFA) 90 mcg/actuation inhaler Inhale 2 Puffs as instructed every 4 hours as needed. No current facility-administered medications for this visit. FAMILY HISTORY Problem Relation Age of Onset - COPD Mother - Thyroid Mother - Asthma Mother - Diabetes Father - Heart Father CO - Bone Disease [OTHER] Brother - COPD Sister - Diabetes Brother - Hypertension Maternal Grandmother - COPD Maternal Grandmother - Emphysema Maternal Grandmother - Heart Maternal Grandfather - Hypertension Maternal Grandfather - Cancer Paternal Uncle Social History Marital status: Single Spouse name: Years of education: Number of children: Occupational History Occupation Employer Comment Unemployed Social History Main Topics Smoking status: Current Every Day Smoker Packs/day: 0.50 Years: 2.00 Types: Cigarettes Smokeless tobacco: Never Used Alcohol use: No Drug use: No Sexual activity: Yes Partners with: Male EXAM: BP 118/76 (BP Site: Left Arm, BP Position: Sitting, BP Cuff Size: Large Adult) Pulse 74 Resp 14 Wt (!) 139.3 kg (307 lb) BMI 48.08 kg/m? PHYSICAL EXAM: General Appearance: Well appearing, alert, in no acute distress, well-hydrated, well nourished.. Skin: Skin color, texture, turgor normal, no suspicious rashes or lesions. Head: Normocephalic, no masses, lesions, tenderness or abnormalities. Eyes: Anicteric sclera. Pupils are equally round and reactive to light. Extraocular movements are intact. . Ears: External ears normal, canals clear, Normal TMs bilaterally. Oropharynx: Lips, mucosa, and tongue normal, teeth and gums normal, oropharynx normal. Neck: Supple, no adenopathy; thyroid symmetric, normal size, no bruits. Lungs: Lungs clear to auscultation. No wheezing, rhonchi, rales. Heart: RRR without murmur, gallop, or rubs. No ectopy. Abdomen: Abdomen soft, non-tender. Bowel sounds normal. No masses, organomegaly. Extremities: No deformities, edema, skin discoloration, clubbing or cyanosis. Good capillary refill. Peripheral Pulses: Normal. Neurologic: Gait normal. ASSESSMENT/PLAN: 1. Fatigue, unspecified type - ICD9: 780.79, ICD10: R53.83 (primary diagnosis) - TSH BLD - CBC - HGB A1C - COMP METABOLIC PANEL - HCG QUAL UR B/O - POLYSOMNOGRAM (PSG)/HOME SLEEP APNEA TESTING (HSAT) - CONSULT TO SLEEP MEDICINE - ADULT Also encouraged to increase activity. 2. Mild intermittent asthma without complication - ICD9: 493.90, ICD10: J45.20 Mild intermittent Asthma stable - Continue current meds - Avoidance of triggers recommended - ALBUTEROL SULFATE HFA 90 MCG/ACTUATION AEROSOL INHALER 3. Other depression - ICD9: 311, ICD10: F32.89 - ESCITALOPRAM 10 MG TABLET 4. Palpitations - ICD9: 785.1, ICD10: R00.2 - HOLTER MONITOR 48 HOUR - may be secondary to increased caffeine intake. Will get holter. Discussed treatment plan and patient voices understanding. Patient's questions answered appropriately. Medications and potential side effects were discussed and patient voices understanding. Return to the office as scheduled in 1 month or as needed for worsening/no improvement. Yesi Cody APRN.JOHN EMERGENCY DEPARTMENT Observed: 10/25/2017 Status: F Source: [place] SUMMARY 12:29 AM [facility] REPOSITORY [facility] Medical Records Department [address] [place] [address] Emergency Department Summary 10/24/17 2253 MR#: [id number] Acct: [id number] Name: KEILY RASMUSSEN Rep #: [id number] : 1995 22 From: Irma Sainz MD PCP: Ken Barnes MD Status: REG ER - ER Visit Summary Date of Service: 10/24/17 Chief Complaint: Chest pain History of Present Illness: The patient is a 22 F presenting with left-sided chest pain which started around 6 AM this morning. She states it has waxed and waned today and has been consistent throughout the day. She has shortness of breath associated with this. She states it is worse with deep inspiration. She has had similar symptoms in the past. She is a smoker. She does not have any other coronary artery disease risk factors. She denies fever cough or other complaints. As a child she had a subvalvular aortic stenosis and PDA repair, and developed endocardial fibroelastosis, and subsequently had subaortic membrane resection without complication in May at [facility]. Physical Examination: Vitals are stable. Patient is afebrile. Alert no acute distress. HEENT exam is unremarkable. Neck is supple. Lungs are clear and equal bilaterally. Left chest tender to palpation with no crepitus. Heart is regular rate and rhythm. Abdomen is soft nontender nondistended. Extremities are unremarkable. Skin is warm and dry. No focal neurologic deficit. Remainder of exam is unremarkable. Emergency Department Course and Treatment: EKG is sinus rate of 67 with left bundle branch block unchanged from previous. Patient is given Toradol IV. Chest x-ray shows mild enlargement of cardiac silhouette. CBC normal shows hemoglobin 11.6, chemistries unremarkable. Troponin is negative. D-dimer is 0.32. HCG negative. Patient had over 12 hours of constant pain with a negative troponin. Her pain is reproducible to palpation. She is advised to take NSAIDs. Advised to follow-up with her primary care physician. Advised return to ED if worsening complaints. Disposition: Discharge home Impression: Chest wall pain This note was generated with Cleverbug dictation software. It may contain incorrect words, spelling, and punctuation that were not noted in review of the chart prior to signing ED Disposition - Plan for ED Patient: Chief Complaint: Chest Pain Instructions: ED Strain Chest Wall Referrals: Ken Barnes MD [Primary Care Provider] - What to do if you have Problems For any increased pain, shortness of breath, bleeding, nausea or vomiting, chest pain, or any unexpected problems, contact your Primary Care Provider. Call [facility] ([phone]) or report to the closest Emergency Room. Call 911 if necessary. 10/25/17 0029 <Electronically signed by Irma Sainz MD> Date Irma Sainz MD Cosigner Signature (If Indicated): Date CC: Ken Barnes MD DISCHARGE INSTRUCTION Observed: 10/25/2017 Status: F Source: [place] 12:17 AM [facility] Medical Records Department [address] [place] [address] Discharge Instruction 10/25/1716 MR#: [id number] Acct: [id number] Name: VALERYKEILY Mario Rep #: [id number] : 1995 22 From: Irma Sainz MD PCP: Ken Barnes MD Status: REG ER ED Disposition - Plan for ED Patient: Chief Complaint: Chest Pain Instructions: ED Strain Chest Wall Referrals: Ken Barnes MD [Primary Care Provider] - What to do if you have Problems For any increased pain, shortness of breath, bleeding, nausea or vomiting, chest pain, or any unexpected problems, contact your Primary Care Provider. Call [facility] ([phone]) or report to the closest Emergency Room. Call 911 if necessary. 10/25/1716 <Electronically signed by Irma Sainz MD> Date Irma Sainz MD Cosigner Signature (If Indicated): Date CC: Ken Barnes MD CBC W/DIFF, AUTOMATED Collected: 10/24/2017 Status: F Source: [place] 11:15 PM [facility] REPOSITORY TYPE CODE TESTS RESULT OUT OF RANGE REFERENCE UNITS LAB L100.1000 4.4-11.0 K/mm3 Normal WBC 10.4 LAB L100.1200 4.2-5.4 M/mm3 Normal RBC 4.93 LAB L100.1300 12.0-15.0 g/dl Low HGB 11.6 LAB L100.1400 37-47 % Normal HCT 37.3 LAB L100.1500 81-99 fL Low MCV 75.7 LAB L100.1600 27.0-32.0 pg Low MCH 23.5 LAB L100.1700 32-36 g/gl Low MCHC 31.1 LAB L100.1810 11.6-14.6 % High RDW CV 17.5 LAB L100.1820 35.1-43.9 fl High RDW SD 48.6 LAB L100.1900 150-450 K/mm3 Normal PLT 294 LAB L100.2000 6.2-12.0 fl Normal MPV 9.3 LAB L100.2100 47-70 % Normal NEUT% 58.7 LAB L100.2200 19-41 % Normal LY% 27.2 LAB L100.2300 0-10 % Normal MONO% 7.2 LAB L100.2400 0-5 % High EO% 6.1 LAB L100.2500 0-1 % Normal BASO% 0.6 LAB L100.2550 0.0-0.9 % Normal IM GRAN % 0.200 Result Comment: IG% - Immature Granulocytes (promyelocytes, myelocytes and metamyelocytes) > 1% indicates that a LEFT SHIFT is Present. LAB L100.2620 2.0-7.7 X10 3/uL Normal Absolute Neut 6.1 LAB L100.2720 0.83-4.51 X10 3/ul Normal Absolute Lymph 2.83 Performed By: #### L100.0100 #### [facility] [address] [place], [address] D-DIMER QUANTITATIVE Collected: 10/24/2017 Status: F Source: [place] (DVT/PE) 11:15 PM [facility] REPOSITORY TYPE CODE TESTS RESULT OUT OF RANGE REFERENCE UNITS LAB L300.8000 0.27-0.49 FEU/ug/m Normal D-DIMER 0.32 QUANT Result Comment: NORMAL D-Dimer level (<0.50) indicates no DVT or PE. Performed By: #### L300.8000 #### [facility] [address] [place], [address] ,SERUM,HCG QUALI. Collected: Status: F Source: [place] 10/24/2017 11:15 PM [facility] REPOSITORY TYPE CODE TESTS RESULT OUT OF REFERENCE UNITS RANGE LAB L700.7000 0-9 Nonpreg Negative Normal HCGSQUAL NEGATIVE LAB L700.6700 =>Qualitative mIU/mL Normal HCG Qual < 1 triggr Performed By: #### L700.6800 #### [facility] [address] [place], [place], [address] BASIC METABOLIC Collected: 10/24/2017 Status: F Source: [place] PROFILE (BMP) 11:10 PM [facility] REPOSITORY TYPE CODE TESTS RESULT OUT OF RANGE REFERENCE UNITS LAB L501.0100 74-106 mg/dL Normal GLU 104 Result Comment: Fasting Glucose result from 100 to 125 mg/dL suggests IMPAIRED HOMEOSTASIS per A.D.A. criteria. Please note revised GLUCOSE reference range effective 2017. LAB L501.1000 7-18 mg/dL Normal BUN 11 LAB L501.1100 0.55-1.02 mg/dL Normal CREAT,SERUM 0.66 Result Comment: The validity of the calculated GFR AND GFRAA in patients over 70 years has not been determined. Clinical correlation is essential. LAB L501.1110 >60 mL/min Normal EST GFR 122 Result Comment: Non- GFR Calc LAB L501.1115 >60 mL/min Normal EST GFR - AA 147 Result Comment: GFR Calc LAB L501.1255 ml/min Normal Estimated CRCL 137.16 LAB L501.1300 10-20 RATIO BUN/CRE Normal 16.7 LAB L501.2200 8.5-10 mg/dL Low .1 CA 8.3 LAB L501.5300 136-14 mmol/L 5 NA Normal 139 LAB L501.5600 3.5-5. mmol/L 1 K Normal 3.8 LAB L501.5900 98-107 mmol/L High CL 109 LAB L501.6100 21.0-3 mmol/L 2.0 CO2 Normal 22.0 LAB L501.6200 5-15 GAP Normal 8 Performed By: #### L500.2500, L501.4010 #### [facility] [address] [place], [place], [address] TROPONIN-I Collected: 10/24/2017 Status: F Source: [place] 11:10 PM [facility] REPOSITORY TYPE CODE TESTS RESULT OUT OF RANGE REFERENCE UNITS LAB L501.4010 <0.045 ng/mL Normal < 0.015 TROPONIN-I Result Comment: TROPONIN-I EXPECTED VALUES <0.045 Negative 0.045 - 0.590 Consistent with Cardiac Damage > OR = 0.600 Critical Value Not every elevated troponin is indicative of CO. These values should be used with clinical judgement in examining the patient's clinical picture for diagnosis. To establish a diagnosis of CO versus myocardial injury, there must be a demonstrated rise and/or fall in the troponin values, in addition to ischemic symptoms, EKG changes, new regional wall motion abnormality, and/or angiographical evidence. PLEASE NOTE: REFERENCE RANGES EDITED 17 Performed By: #### L500.2500, L501.4010 #### [facility] [address] [place], [place], [address] CHEST 1 VIEW Observed: 10/24/2017 Status: F Source: [place] (PORTABLE) 10:53 PM [facility] REPOSITORY [facility] Imaging Services [address] [place] [address] Chest 1 View (Portable) MR#: [id number] Acct: [id number] Name: KEILY RASMUSSEN Rep #: [id number] : 1995 F 22 From: Ellen Olivera MD PCP: Ken Barnes MD Status: REG ER Study: Chest 1 View (Portable) Date of Exam: 10/24/17 Exam# [id number] Ordering Dr: Irma Sainz MD STUDY: X-RAY CHEST REASON FOR EXAM: Female, 22 years old. Chest pain TECHNIQUE: A single frontal view of the chest was obtained. COMPARISON: July 18, 2017 FINDINGS: The lungs are underaerated. There are no focal airspace opacities. There is no demonstrated pleural abnormality. There is mild enlargement of the cardiac silhouette. Sternotomy wires are present. The mediastinum and hilar regions are unremarkable. Normal visualized pulmonary arteries. Normal visualized aortic arch and descending thoracic aorta. The thoracic spine is unremarkable. The visualized ribs, clavicles, and shoulders are unremarkable. There is no demonstrated abnormality of the visualized upper abdomen. RAD/Chest 1 View (Portable) IMPRESSION: There is mild enlargement of the cardiac silhouette without evidence of edema or effusion. Electronically Signed: Ellen Olivera MD at 23:47 EDT Tel Direct: [phone], Service support , CC: Irma Sainz MD; Ken Barnes MD Bridge Tender: Signed PROGRESS Observed: 10/10/2017 Status: COMPLETED Source: [place] 1:16 PM [facility] REPOSITORY O ID: [id number] Author: Melisa (John) Podlogar Service: (none) Author Type: Nurse Practitioner Type: Progress Notes Filed: 10/10/2017 2:55 PM Note Text: 10/10/2017 Patient presents with: Bleeding/Bruising: bruising in vaginal area ,states no period since september 07. SUBJECTIVE: This is a 22 year old that is here today for Above Complaints. Recently saw Dr. linda on 10/02/2017 for multiple complaints. At that time she was a week late for her period and had some vaginal odor and tingling. test at that time was negative and she declined a vaginal exam. She was treated empirically for acute vaginitis with diflucan. Today she is concerned because she has a bruise on her vagina that goes in to vagina. Denies trauma or injury. Has had sex and admits it has been rougher than normal which she reports she is a wiling participate in. Says she is bleeding a little but states, it doesn't look like period blood. She reports she only bleeds when she urinates and wipes and that there is nothing on the pad. Denies fever, chills, back pain, vaginal discharge other than blood, vaginal itching/irritation, urinary urgency,or abdominal pain. Positive for lower abdominal cramping, burning with urination, and frequency. Is sexually active with the same partner for 2 years, does not use control. No hx of STD's. Reports periods are irregular (hx of PCOs) usually last 4-5 days with average bleeding. Urine dip shows: Glucose, Urine (mg/dL) Date Value 10/10/2017 NEG Bilirubin, Urine (no units) Date Value 10/10/2017 NEG Bilirubin, Urine (no units) Date Value 10/10/2017 NEG Ketones, Urine (no units) Date Value 10/10/2017 NEG Specific [place], Ur (no units) Date Value 10/10/2017 1.005 Hemoglobin/Blood,Ur (no units) Date Value 10/10/2017 LARGE pH, Arterial (no units) Date Value 06/18/2017 7.38 Protein, Urine (mg/dL) Date Value 10/10/2017 NEG Urobilinogen, Urine (EU) Date Value 10/10/2017 NORMAL No components found for: NITR Leukocytes (no units) Date Value 10/10/2017 NEG Color/Appearance (comment:) Date Value 10/10/2017 PINK PAST MEDICAL HISTORY Diagnosis Date - Aortic stenosis s/p repair of a PDA and subvalvular aortic stenosis. Sees Dr. Haider and Dr. Marie - Asthma - Morbid obesity (HCC) - PCOS (polycystic ovarian syndrome) elevated testosterone and elevated insulin - PDA (patent ductus arteriosus) s/p repair age 10 - Tobacco use ALLERGIES Penicillins; Tetanus And Diphtheria Toxoids, Adsorbed, Adult MEDICATIONS Current Outpatient Prescriptions: vit-iron fumarate-fa ( MULTIVITAMINS) 28 mg iron- 800 mcg tab Take 1 tablet by mouth once daily. acetaminophen (TYLENOL) 325 mg tablet Take 2 tablets by mouth every 6 hours as needed for Pain or Fever. albuterol HFA (VENTOLIN HFA) 90 mcg/actuation inhaler Inhale 2 Puffs as instructed every 4 hours as needed. No current facility-administered medications for this visit. Medications and allergies reviewed by this provider. SOCIAL HISTORY Social History Marital status: Single Spouse name: Years of education: Number of children: Occupational History Occupation Employer Comment Unemployed Social History Main Topics Smoking status: Current Every Day Smoker Packs/day: 0.50 Years: 2.00 Types: Cigarettes Smokeless tobacco: Never Used Alcohol use: No Drug use: No Sexual activity: Yes Partners with: Male REVIEW OF SYSTEMS GENERAL: No weight loss, malaise or fevers RESPIRATORY: Negative for cough, hemoptysis, wheezing, COPD, dyspnea or shortness of breath CARDIOVASCULAR: Negative for chest pain, leg swelling, hypertension, CHF or palpitations GI: No nausea, vomiting, or diarrhea and No heartburn or reflux symptoms : See HPI TEST INSPECTION ENGINEER: SEE HPI HEMATOLOGY/LYMPHOLOGY: Negative for prolonged bleeding, bruising easily or swollen nodes All other reviewed and negative other than HPI. OBJECTIVE: BP 120/70 (BP Site: Left Arm, BP Position: Sitting, BP Cuff Size: Large Adult) Pulse 64 Resp 18 Wt (!) 138.3 kg (305 lb) BMI 47.77 kg/m? . Vital signs reviewed by this provider. APPEARANCE Well appearing, alert, in no acute distress, well-hydrated, well nourished., Morbidly obese HEART RRR with normal S1 and S2, no murmurs, no gallops, no JVD appreciated LUNG clear to auscultation BACK: No CVA tenderness ABDOMEN bowel sounds normoactive, no bruits, soft, non-tender, non-distended, large, without organomegaly or palpable masses, no tenderness to palpation FEMALE Normal external genitalia and normal vagina and normal vaginal tone. Ecchymotic area to supra pubic area, approximate half dollar size. No ecchymosis around vaginal area. Minimal Vaginal bleeding observed. ASSESSMENT/PLAN: 1. 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 Urinary frequency - ICD9: 788.41, ICD10: R35.0 -Acute - ua negative other than blood- is on period - If persists or worsens return to office, to ER with red flag symtpoms - UA DIP B/O 4. Ecchymosis - ICD9: 459.89, ICD10: R58 - patient thought you couldn't bruise in this area. Discussed it is possible. She reports she has never talked to mother about this so she was concerned something was wrong - may use ice to area - follow-up as needed Melisa Aragonlogjoel, TEST GRADER.FLOUR TESTER Prescription instructions reviewed with patient as applicable. Patient advised if symptoms do not improve or if symptoms worsen sooner, to contact their primary care physician. Potential red flag symptoms discussed with the patient. Reviewed appropriate action plan to take if red flag symptoms occur. Patient agreeable to treatment plan. CNOV Observed: 10/10/2017 Status: COMPLETED Source: [place] 1:00 PM [facility] REPOSITORY [facility] KEILY RASMUSSEN ([id number]) 1995 F Date Time Provider Department 10/10/17 1:00 PM MELISA BARRIENTOS CNP During your visit today, we recorded the following information about you: Pulse Respiration Blood pressure Weight 64/minute 18/minute 120/70 138.3 kg Melisa Barrientos APRN.CNP 10/10/2017 2:55 PM Signed 10/10/2017 Patient presents with: Bleeding/Bruising: bruising in vaginal area ,states no period since september 07. SUBJECTIVE: This is a 22 year old that is here today for Above Complaints. Recently saw Dr. linda on 10/02/2017 for multiple complaints. At that time she was a week late for her period and had some vaginal odor and tingling. test at that time was negative and she declined a vaginal exam. She was treated empirically for acute vaginitis with diflucan. Today she is concerned because she has a bruise on her vagina that goes in to vagina. Denies trauma or injury. Has had sex and admits it has been rougher than normal which she reports she is a wiling participate in. Says she is bleeding a little but states, it doesn't look like period blood. She reports she only bleeds when she urinates and wipes and that there is nothing on the pad. Denies fever, chills, back pain, vaginal discharge other than blood, vaginal itching/irritation, urinary urgency,or abdominal pain. Positive for lower abdominal cramping, burning with urination, and frequency. Is sexually active with the same partner for 2 years, does not use control. No hx of STD's. Reports periods are irregular (hx of PCOs) usually last 4-5 days with average bleeding. Urine dip shows: Glucose, Urine (mg/dL) Date Value 10/10/2017 NEG Bilirubin, Urine (no units) Date Value 10/10/2017 NEG Bilirubin, Urine (no units) Date Value 10/10/2017 NEG Ketones, Urine (no units) Date Value 10/10/2017 NEG Specific [place], Ur (no units) Date Value 10/10/2017 1.005 Hemoglobin/Blood,Ur (no units) Date Value 10/10/2017 LARGE pH, Arterial (no units) Date Value 06/18/2017 7.38 Protein, Urine (mg/dL) Date Value 10/10/2017 NEG Urobilinogen, Urine (EU) Date Value 10/10/2017 NORMAL No components found for: NITR Leukocytes (no units) Date Value 10/10/2017 NEG Color/Appearance (comment:) Date Value 10/10/2017 PINK PAST MEDICAL HISTORY Diagnosis Date - Aortic stenosis s/p repair of a PDA and subvalvular aortic stenosis. Sees Dr. Haider and Dr. Marie - Asthma - Morbid obesity (HCC) - PCOS (polycystic ovarian syndrome) elevated testosterone and elevated insulin - PDA (patent ductus arteriosus) s/p repair age 10 - Tobacco use ALLERGIES Penicillins; Tetanus And Diphtheria Toxoids, Adsorbed, Adult MEDICATIONS Current Outpatient Prescriptions: vit-iron fumarate-fa ( MULTIVITAMINS) 28 mg iron- 800 mcg tab Take 1 tablet by mouth once daily. acetaminophen (TYLENOL) 325 mg tablet Take 2 tablets by mouth every 6 hours as needed for Pain or Fever. albuterol HFA (VENTOLIN HFA) 90 mcg/actuation inhaler Inhale 2 Puffs as instructed every 4 hours as needed. No current facility-administered medications for this visit. Medications and allergies reviewed by this provider. SOCIAL HISTORY Social History Marital status: Single Spouse name: Years of education: Number of children: Occupational History Occupation Employer Comment Unemployed Social History Main Topics Smoking status: Current Every Day Smoker Packs/day: 0.50 Years: 2.00 Types: Cigarettes Smokeless tobacco: Never Used Alcohol use: No Drug use: No Sexual activity: Yes Partners with: Male REVIEW OF SYSTEMS GENERAL: No weight loss, malaise or fevers RESPIRATORY: Negative for cough, hemoptysis, wheezing, COPD, dyspnea or shortness of breath CARDIOVASCULAR: Negative for chest pain, leg swelling, hypertension, CHF or palpitations GI: No nausea, vomiting, or diarrhea and No heartburn or reflux symptoms : See HPI TEST INSPECTION ENGINEER: SEE HPI HEMATOLOGY/LYMPHOLOGY: Negative for prolonged bleeding, bruising easily or swollen nodes All other reviewed and negative other than HPI. OBJECTIVE: BP 120/70 (BP Site: Left Arm, BP Position: Sitting, BP Cuff Size: Large Adult) Pulse 64 Resp 18 Wt (!) 138.3 kg (305 lb) BMI 47.77 kg/m? . Vital signs reviewed by this provider. APPEARANCE Well appearing, alert, in no acute distress, well- hydrated, well nourished., Morbidly obese HEART RRR with normal S1 and S2, no murmurs, no gallops, no JVD appreciated LUNG clear to auscultation BACK: No CVA tenderness ABDOMEN bowel sounds normoactive, no bruits, soft, non-tender, non-distended, large, without organomegaly or palpable masses, no tenderness to palpation FEMALE Normal external genitalia and normal vagina and normal vaginal tone. Ecchymotic area to supra pubic area, approximate half dollar size. No ecchymosis around vaginal area. Minimal Vaginal bleeding observed. ASSESSMENT/PLAN: 1. 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 Urinary frequency - ICD9: 788.41, ICD10: R35.0 -Acute - ua negative other than blood- is on period - If persists or worsens return to office, to ER with red flag symtpoms - UA DIP B/O 4. Ecchymosis - ICD9: 459.89, ICD10: R58 - patient thought you couldn't bruise in this area. Discussed it is possible. She reports she has never talked to mother about this so she was concerned something was wrong - may use ice to area - follow-up as needed Melisa Podlogar, TEST GRADER.FLOUR TESTER Prescription instructions reviewed with patient as applicable. Patient advised if symptoms do not improve or if symptoms worsen sooner, to contact their primary care physician. Potential red flag symptoms discussed with the patient. Reviewed appropriate action plan to take if red flag symptoms occur. Patient agreeable to treatment plan. Melisa Barrientos, ANTIONE.FLOUR TESTER 10/10/2017 1:51 PM Signed If you develop sever abdominal pain or bleeding more than usual, fever, chills go to the ER. Referring Provider: SELF [[id number]] Allergies As of Date: 10/10/2017 Noted Allergy Reaction PENICILLINS 11/28/2014 4 - Hives TETANUS AND DIPHTHERIA TOXOIDS, A*04/14/2017 2 - Rash Comments: Local erythema and swelling in the affected arm. Date Reviewed: 10/10/2017 Reviewed by: Irene Pimentel LPN - Fully Assessed Reason for Visit: Bleeding/Bruising [14] Cmt: bruising in vaginal area ,states no period since september 07. Primary Visit Diagnosis:Missed period [N92.6] Other Visit Diagnoses:Urinary frequency [R35.0] Burning with urination [R30.0] Ecchymosis [R58] Order(s):HCG QUAL UR B/O [[id number]] Order #: [id number] UA DIP B/O [[id number]] Order #: [id number] Prescriptions as of 10/10/2017 Sig: VIT NO.95-FERROUS FU* Take 1 tablet by mouth once d* ACETAMINOPHEN 325 MG TABLET Take 2 tablets by mouth every* ALBUTEROL SULFATE HFA 90 MCG/* Inhale 2 Puffs as instructed * Problem List As Of Date 10/10/2017 Noted Resolved Heart valve stenosis [I38] INVALID FOR* Obesity, Class III, BMI 40-49.9 (morbid obesity*INVALID FOR* Hyperinsulinemia [E16.1] INVALID FOR* Adjustment disorder with mixed anxiety and depr*INVALID FOR* Priority: C More... Seasonal allergic rhinitis due to pollen [J30.1]INVALID FOR* Morbid obesity (HCC) [E66.01] Asthma [J45.909] Priority: B More... Aortic stenosis [I35.0] Priority: A More... PCOS (polycystic ovarian syndrome) [E28.2] More... Pre-op testing [Z01.818] INVALID FOR* More... Discharge planning issues [Z02.9] INVALID FOR* Priority: D More... On mechanically assisted ventilation (HCC) [Z99*INVALID FOR*06/18/2017 Priority: B More... Acute post-operative pain [G89.18] INVALID FOR* Priority: C More... Atelectasis [J98.11] INVALID FOR* Priority: B More... Hypovolemia [E86.1] INVALID FOR*06/18/2017 Priority: F More... Essential hypertension [I10] INVALID FOR* Priority: C More... Transition of care performed with sharing of cl*INVALID FOR* Priority: Very Severe More... Nicotine use disorder, F17.2 [F17.200] INVALID FOR* Other instructions from your clinician: If you develop sever abdominal pain or bleeding more than usual, fever, chills go to the ER. Follow-up and Disposition History Recorded Encounter Status:Closed by BONNIELOGMELISA LEW CNP on 10/10/17 PROGRESS Observed: 10/02/2017 Status: COMPLETED Source: [place] 3:53 PM [facility] REPOSITORY HNO ID: [id number] Author: Krishna Linda Service: (none) Author Type: Physician Type: Progress Notes Filed: 10/02/2017 4:27 PM Note Text: No chief complaint on file. HPI: Patient presents today for office visit for multiple complaints. Nursing Notes: Deana Carlson Ma 10/02/2017 3:36 PM Signed BREAST:Pt c/o left breast pain on and off for about a month. Denies feeling any lumps. LEG: Pt c/o numbness and tingling starting at her left hip and radiates down to her foot. Started in May, after her open heart surgery. ODOR: Pt c/o of vaginal odor for about 2 weeks. It started stinging about 2 days ago. She denies any discharge. MENSES: Pt is about a week late for her period. She is having unprotected sex. She would like to start vitamins. complain of left chest wall pain which is chronic. This is different. Notes discomfort in the breast tissues. No lumps or bumps. No neck or arm pit pain. No drainage. The left leg is numb and uncomfortable on the lateral side. Comes and goes. Is there most of the time. No weakness. No back pain. Does tingle some as well. Seemed to start after surgery once up and moving around. No new issues controlling bowel or bladder. Has chronic back issues. Has a hx of irregular menses. Was diagnosed with pcos. Was initially on metformin. Was concerned about possible . Has a vaginal irritation. Is painful after urinating. No discharge. Had a yeast infection in the past. No hx of std's. Has been tested whenever changed partners. Last time was in July. Would prefer to try diflucan first before testing. Discussed that if continues would need full evaluation. MEDICATIONS: Current Outpatient Prescriptions: acetaminophen (TYLENOL) 325 mg tablet Take 2 tablets by mouth every 6 hours as needed for Pain or Fever. albuterol HFA (VENTOLIN HFA) 90 mcg/actuation inhaler Inhale 2 Puffs as instructed every 4 hours as needed. No current facility-administered medications for this visit. ALLERGIES: ALLERGIES Allergen Reactions - Penicillins Hives - Tetanus And Diphthe* Rash Local erythema and swelling in the affected arm. PAST MEDICAL HISTORY Diagnosis Date - Aortic stenosis s/p repair of a PDA and subvalvular aortic stenosis. Sees Dr. Haider and Dr. Marie - Asthma - Morbid obesity (HCC) - PCOS (polycystic ovarian syndrome) elevated testosterone and elevated insulin - PDA (patent ductus arteriosus) s/p repair age 10 - Tobacco use PAST SURGICAL HISTORY Procedure Laterality Date - PAST SURGICAL HISTORY OF Repair of a PDA and subvalvular aortic stenosis-childhood FAMILY HISTORY Problem Relation Age of Onset - COPD Mother - Thyroid Mother - Asthma Mother - Diabetes Father - Heart Father CO - Bone Disease [OTHER] Brother - COPD Sister - Diabetes Brother - Hypertension Maternal Grandmother - COPD Maternal Grandmother - Emphysema Maternal Grandmother - Heart Maternal Grandfather - Hypertension Maternal Grandfather - Cancer Paternal Uncle Social History Marital status: Single Spouse name: Years of education: Number of children: Occupational History Occupation Employer Comment Unemployed Social History Main Topics Smoking status: Current Every Day Smoker Packs/day: 0.50 Years: 2.00 Types: Cigarettes Smokeless tobacco: Never Used Alcohol use: No Drug use: No Sexual activity: Yes Partners with: Male Reviewed current medications, allergies, past medical history, surgical history, family history and social history today. REVIEW OF SYSTEMS All other reviewed and negative other than HPI. VITALS: BP 118/62 Pulse 72 Resp 20 Wt (!) 138.3 kg (305 lb) LMP 08/24/2017 (Exact Date) BMI 47.77 kg/m? Last 4 Encounter Wt Readings: Date: Wt: 10/02/2017 138.3 kg (305 lb) 09/19/2017 138 kg (304 lb 4.8 oz) 09/16/2017 136.5 kg (301 lb) 08/22/2017 134.8 kg (297 lb 3.2 oz) PHYSICAL EXAMINATION: General appearance: Well appearing, alert, in no acute distress, well-hydrated, well nourished. Skin: Skin color, texture, turgor normal, no suspicious rashes or lesions Head: Normocephalic, no masses, lesions, tenderness or abnormalities Neck: supple, no lymphadenopathy Lungs: Lungs clear to auscultation. No wheezing, rhonchi, rales Heart: RRR without murmur, gallop, or rubs. No ectopy Abdomen: Normal abdominal exam, Abdomen soft, non-tender. Bowel sounds normal. No masses, organomegaly Extremities: No deformities, edema, skin discoloration, clubbing or cyanosis. Good capillary refill. BACK: Normal curvature of spine. No spine tenderness. Straight leg test negative. Deep tendon reflexes 2+/4 at patellas. Normal lower extremity strength. Breast. Shows mild tenderness in the inner left breast. No definite mass palpable. No axillary or supraclavicular masses during chaperoned exam. ASSESSMENT/PLAN: 1. Aortic valve stenosis, etiology of cardiac valve disease unspecified - ICD9: 424.1, ICD10: I35.0 (primary diagnosis) - wants a new parking manager. Will assist with the referral. - CONSULT TO CARDIOLOGY 2. Essential hypertension - ICD9: 401.9, ICD10: I10 - good control - Goal of BP <140/90 3. Heart valve stenosis - ICD9: 424.90, ICD10: I38 4. Dysuria - ICD9: 788.1, ICD10: R30.0 Urine is negative. - HCG QUAL UR B/O - UA DIP B/O 5. Primary amenorrhea - ICD9: 626.0, ICD10: N91.0 - possibly due to pcos. Urine preg is negative. 6. Left sided sciatica - ICD9: 724.3, ICD10: M54.32 Sciatica - XR LUMBAR GENERAL 3V AP/LAT/L5-S1 - CONSULT TO PHYSICAL THERAPY 7. Breast pain, left - ICD9: 611.71, ICD10: N64.4 - limit caffeine. - Call if symptoms worsen at all or if not better in one to two weeks - consider surgery eval if persists. - [facility] DIAGNOSTIC BILAT - US BREAST LTD LT 8. Acute vaginitis - ICD9: 616.10, ICD10: N76.0 - declines vaginal exam. Will cover emirically. Will need exam if persists. - FLUCONAZOLE 100 MG TABLET Krishna Linda MD CNOV Observed: 10/02/2017 Status: COMPLETED Source: [place] 3:20 PM [facility] REPOSITORY Office Visit (FAMPWS) KEILY RASMUSSEN ([id number]) 1995 F Date Time Provider Department 10/02/17 3:20 PM [facility]ISH[facility] LINDA [facility] During your visit today, we recorded the following information about you: Pulse Respiration Blood pressure Weight 72/minute 20/minute 118/62 138.3 kg Last Period 08/24/17 Deana Carlson Ma 10/02/2017 3:36 PM Signed BREAST:Pt c/o left breast pain on and off for about a month. Denies feeling any lumps. LEG: Pt c/o numbness and tingling starting at her left hip and radiates down to her foot. Started in May, after her open heart surgery. ODOR: Pt c/o of vaginal odor for about 2 weeks. It started stinging about 2 days ago. She denies any discharge. MENSES: Pt is about a week late for her period. She is having unprotected sex. She would like to start vitamins. Krishna Linda 10/02/2017 4:27 PM Signed No chief complaint on file. HPI: Patient presents today for office visit for multiple complaints. Nursing Notes: Deana Carlson Ma 10/02/2017 3:36 PM Signed BREAST:Pt c/o left breast pain on and off for about a month. Denies feeling any lumps. LEG: Pt c/o numbness and tingling starting at her left hip and radiates down to her foot. Started in May, after her open heart surgery. ODOR: Pt c/o of vaginal odor for about 2 weeks. It started stinging about 2 days ago. She denies any discharge. MENSES: Pt is about a week late for her period. She is having unprotected sex. She would like to start vitamins. complain of left chest wall pain which is chronic. This is different. Notes discomfort in the breast tissues. No lumps or bumps. No neck or arm pit pain. No drainage. The left leg is numb and uncomfortable on the lateral side. Comes and goes. Is there most of the time. No weakness. No back pain. Does tingle some as well. Seemed to start after surgery once up and moving around. No new issues controlling bowel or bladder. Has chronic back issues. Has a hx of irregular menses. Was diagnosed with pcos. Was initially on metformin. Was concerned about possible . Has a vaginal irritation. Is painful after urinating. No discharge. Had a yeast infection in the past. No hx of std's. Has been tested whenever changed partners. Last time was in July. Would prefer to try diflucan first before testing. Discussed that if continues would need full evaluation. MEDICATIONS: Current Outpatient Prescriptions: acetaminophen (TYLENOL) 325 mg tablet Take 2 tablets by mouth every 6 hours as needed for Pain or Fever. albuterol HFA (VENTOLIN HFA) 90 mcg/actuation inhaler Inhale 2 Puffs as instructed every 4 hours as needed. No current facility-administered medications for this visit. ALLERGIES: ALLERGIES Allergen Reactions - Penicillins Hives - Tetanus And Diphthe* Rash Local erythema and swelling in the affected arm. PAST MEDICAL HISTORY Diagnosis Date - Aortic stenosis s/p repair of a PDA and subvalvular aortic stenosis. Sees Dr. Haider and Dr. Marie - Asthma - Morbid obesity (HCC) - PCOS (polycystic ovarian syndrome) elevated testosterone and elevated insulin - PDA (patent ductus arteriosus) s/p repair age 10 - Tobacco use PAST SURGICAL HISTORY Procedure Laterality Date - PAST SURGICAL HISTORY OF Repair of a PDA and subvalvular aortic stenosis-childhood FAMILY HISTORY Problem Relation Age of Onset - COPD Mother - Thyroid Mother - Asthma Mother - Diabetes Father - Heart Father CO - Bone Disease [OTHER] Brother - COPD Sister - Diabetes Brother - Hypertension Maternal Grandmother - COPD Maternal Grandmother - Emphysema Maternal Grandmother - Heart Maternal Grandfather - Hypertension Maternal Grandfather - Cancer Paternal Uncle Social History Marital status: Single Spouse name: Years of education: Number of children: Occupational History Occupation Employer Comment Unemployed Social History Main Topics Smoking status: Current Every Day Smoker Packs/day: 0.50 Years: 2.00 Types: Cigarettes Smokeless tobacco: Never Used Alcohol use: No Drug use: No Sexual activity: Yes Partners with: Male Reviewed current medications, allergies, past medical history, surgical history, family history and social history today. REVIEW OF SYSTEMS All other reviewed and negative other than HPI. VITALS: BP 118/62 Pulse 72 Resp 20 Wt (!) 138.3 kg (305 lb) LMP 08/24/2017 (Exact Date) BMI 47.77 kg/m? Last 4 Encounter Wt Readings: Date: Wt: 10/02/2017 138.3 kg (305 lb) 09/19/2017 138 kg (304 lb 4.8 oz) 09/16/2017 136.5 kg (301 lb) 08/22/2017 134.8 kg (297 lb 3.2 oz) PHYSICAL EXAMINATION: General appearance: Well appearing, alert, in no acute distress, well-hydrated, well nourished. Skin: Skin color, texture, turgor normal, no suspicious rashes or lesions Head: Normocephalic, no masses, lesions, tenderness or abnormalities Neck: supple, no lymphadenopathy Lungs: Lungs clear to auscultation. No wheezing, rhonchi, rales Heart: RRR without murmur, gallop, or rubs. No ectopy Abdomen: Normal abdominal exam, Abdomen soft, non-tender. Bowel sounds normal. No masses, organomegaly Extremities: No deformities, edema, skin discoloration, clubbing or cyanosis. Good capillary refill. BACK: Normal curvature of spine. No spine tenderness. Straight leg test negative. Deep tendon reflexes 2+/4 at patellas. Normal lower extremity strength. Breast. Shows mild tenderness in the inner left breast. No definite mass palpable. No axillary or supraclavicular masses during chaperoned exam. ASSESSMENT/PLAN: 1. Aortic valve stenosis, etiology of cardiac valve disease unspecified - ICD9: 424.1, ICD10: I35.0 (primary diagnosis) - wants a new parking manager. Will assist with the referral. - CONSULT TO CARDIOLOGY 2. Essential hypertension - ICD9: 401.9, ICD10: I10 - good control - Goal of BP <140/90 3. Heart valve stenosis - ICD9: 424.90, ICD10: I38 4. Dysuria - ICD9: 788.1, ICD10: R30.0 Urine is negative. - HCG QUAL UR B/O - UA DIP B/O 5. Primary amenorrhea - ICD9: 626.0, ICD10: N91.0 - possibly due to pcos. Urine preg is negative. 6. Left sided sciatica - ICD9: 724.3, ICD10: M54.32 Sciatica - XR LUMBAR GENERAL 3V AP/LAT/L5-S1 - CONSULT TO PHYSICAL THERAPY 7. Breast pain, left - ICD9: 611.71, ICD10: N64.4 - limit caffeine. - Call if symptoms worsen at all or if not better in one to two weeks - consider surgery eval if persists. - [facility] DIAGNOSTIC BILAT - US BREAST LTD LT 8. Acute vaginitis - ICD9: 616.10, ICD10: N76.0 - declines vaginal exam. Will cover emirically. Will need exam if persists. - FLUCONAZOLE 100 MG TABLET Krishna Linda MD Referring Provider: SELF [[id number]] Allergies As of Date: 10/02/2017 Noted Allergy Reaction PENICILLINS 11/28/2014 4 - Hives TETANUS AND DIPHTHERIA TOXOIDS, A*04/14/2017 2 - Rash Comments: Local erythema and swelling in the affected arm. Date Reviewed: 09/19/2017 Reviewed by: Wendi Romero (Brian) - Fully Assessed Primary Visit Diagnosis:Aortic valve stenosis, etiology of cardiac valve disease unspecified [I35.0] Other Visit Diagnoses:Essential hypertension [I10] Heart valve stenosis [I38] Dysuria [R30.0] Primary amenorrhea [N91.0] Left sided sciatica [M54.32] Breast pain, left [N64.4] Acute vaginitis [N76.0] Order(s): vit-iron fumarate-fa ( MULTIVITAMINS) 28 mg iron- 800 mcg tabTake 1 tablet by mouth once daily.Disp: 30 tabletRfl: 3 HCG QUAL UR B/O [[id number]] Order #: [id number] UA DIP B/O [[id number]] Order #: [id number] CONSULT TO CARDIOLOGY [9004] Order #: [id number]: 1 ERIC DIAGNOSTIC BILAT [[id number]] Order #: [id number] FUTURE US BREAST LTD LT [[id number]] Order #: [id number] FUTURE fluconazole (DIFLUCAN) 100 mg tabletTake 1 tablet by mouth once daily for 3 days.Disp: 3 tabletRfl: 0 XR LUMBAR GENERAL 3V AP/LAT/L5-S1 [[id number]] Order #: [id number] FUTURE CONSULT TO PHYSICAL THERAPY [9032] Order #: [id number]: 1 Prescriptions as of 10/02/2017 Sig: ACETAMINOPHEN 325 MG TABLET Take 2 tablets by mouth every* ALBUTEROL SULFATE HFA 90 MCG/* Inhale 2 Puffs as instructed * VIT NO.95-FERROUS FU* Take 1 tablet by mouth once d* FLUCONAZOLE 100 MG TABLET Take 1 tablet by mouth once d* Problem List As Of Date 10/02/2017 Noted Resolved Heart valve stenosis [I38] INVALID FOR* Obesity, Class III, BMI 40-49.9 (morbid obesity*INVALID FOR* Hyperinsulinemia [E16.1] INVALID FOR* Adjustment disorder with mixed anxiety and depr*INVALID FOR* Priority: C More... Seasonal allergic rhinitis due to pollen [J30.1]INVALID FOR* Morbid obesity (HCC) [E66.01] Asthma [J45.909] Priority: B More... Aortic stenosis [I35.0] Priority: A More... PCOS (polycystic ovarian syndrome) [E28.2] More... Pre-op testing [Z01.818] INVALID FOR* More... Discharge planning issues [Z02.9] INVALID FOR* Priority: D More... On mechanically assisted ventilation (HCC) [Z99*INVALID FOR*06/18/2017 Priority: B More... Acute post-operative pain [G89.18] INVALID FOR* Priority: C More... Atelectasis [J98.11] INVALID FOR* Priority: B More... Hypovolemia [E86.1] INVALID FOR*06/18/2017 Priority: F More... Essential hypertension [I10] INVALID FOR* Priority: C More... Transition of care performed with sharing of cl*INVALID FOR* Priority: Very Severe More... Nicotine use disorder, F17.2 [F17.200] INVALID FOR* Visit Notes: >> Deana Carlson Ma October 02, 2017 3:30 PM Status: Signed BREAST:Pt c/o left breast pain on and off for about a month. Denies feeling any lumps. LEG: Pt c/o numbness and tingling starting at her left hip and radiates down to her foot. Started in May, after her open heart surgery. ODOR: Pt c/o of vaginal odor for about 2 weeks. It started stinging about 2 days ago. She denies any discharge. MENSES: Pt is about a week late for her period. She is having unprotected sex. She would like to start vitamins. Prescriptions ordered this encounter Disp Refills Start End VIT NO.95-FERROUS FUMARATE * 30 t* 3 10/02/2017 Route: ORAL Sig: Take 1 tablet by mouth once daily. FLUCONAZOLE 100 MG TABLET 3 ta* 0 10/02/2017 10/05/2017 Route: ORAL Sig: Take 1 tablet by mouth once daily for 3 days. Medications Discontinued During This Encounter olopatadine (PATANOL) 0.1 % ophthalm* 5 mL 3 09/16/2017 10/02/2017 Route: BOTH EYES Sig: Use 1 Drop in both eyes twice daily. Disc: Cost of medication Disposition: Return if symptoms worsen or fail to improve. Follow-up and Disposition History Recorded Encounter Status:Closed by KRISHNA LINDA MD on 10/02/17 PROGRESS Observed: 09/19/2017 Status: COMPLETED Source: [place] 2:19 PM [facility] OTHER [facility]AMPUS REPOSITORY O ID: [id number] Author: Emmanuel Haider Service: (none) Author Type: Physician Type: Progress Notes Filed: 09/19/2017 5:05 PM Note Text: PERTINENT CARDIAC HISTORY subvalvular aortic stenosis- repair 2005 with incidental PDA repair, resection of subaortic membrane 06/12 Chest pain Tobaccoism LBBB ADHERENCE TO GUIDELINES RICHARD-I or ARB for HF with prior LVEF<40 (NQF 0081) - N/A ASA or Plavix for ASHD (NQF 0067) - N/A Beta gurmeet for ASHD with prior CO or prior LVEF<40 (NQF 0070) - N/A Beta gurmeet for HF with prior LVEF<40 (NQF 0083) - N/A RICHARD-I or ARB for ASHD with DM or prior LVEF<40 (NQF 0066) - N/A Statin therapy for ASHD or FHL or DM - N/A BMI documented and plan if >25 (NQ 0421) - lifestyle recommendation form Tobacco use screening and referral ([facility] 0028) - lifestyle recommendation form Recommendation for whole food, plant based diet - lifestyle recommendation form CLINICAL IMPRESSION/PLAN: Keily Rasmussen is doing well. She's had a good surgical result. She will need to have surveillance every year. She has elected not to follow-up with this office and states that she will go back to [place] for follow-up. There is no contraindication to returning to work. I gave her a letter indicating that she can return back without restriction. We discussed the fact that she should limit her lifting to no more than 30 pounds for another few months and that she can gradually return to full activity. I am available to her should she change her mind about following locally. She reported to our PSR that she would make her own follow-up appointments. Written and verbal health teaching given to patient, patient verbalizes understanding and agrees with treatment plan. DIAGNOSIS FOR VISIT: Aortic stenosis HISTORY OF PRESENT ILLNESS Keily Rasmussen returns for follow-up. She was referred to [facility] and underwent resection of a subaortic membrane. Her postoperative course was uncomplicated. She has been released. She would like to return to work. She's had minimal incisional discomfort. She reports stable exercise tolerance. She's had no orthopnea or edema. She denies palpitations, TIAs, amaurosis, claudication. 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 ALLERGIES: ALLERGIES Allergen Reactions - Penicillins Hives - Tetanus And Diphthe* Rash Local erythema and swelling in the affected arm. CURRENT OUTPATIENT MEDICATIONS: olopatadine (PATANOL) 0.1 % ophthalmic solution Use 1 Drop in both eyes twice daily. acetaminophen (TYLENOL) 325 mg tablet Take 2 tablets by mouth every 6 hours as needed for Pain or Fever. albuterol HFA (VENTOLIN HFA) 90 mcg/actuation inhaler Inhale 2 Puffs as instructed every 4 hours as needed. PHYSICAL EXAMINATION: VITAL SIGNS: BP 135/83 Ht 5' 7 (1.70m) Wt 304 lb 4.8 oz (138.0kg) BMI 47.65 kg/(m2). Chest: Clear to percussion and auscultation. Sternotomy is healing well. There is no click or instability. Trachea is midline. Air entry is equal. Cardiac: Regular rhythm. S1 and S2 are normal. PMI is nondisplaced. Is a soft systolic ejection murmur. Carotids are brisk without bruits. JVP is less than 10 cm. Abdomen: Soft and nontender. There are no pulsatile masses or bruits. No liver enlargement. Bowel sounds are active. Extremities: No edema. Pulses are intact and symmetrical. EKG postop shows left bundle branch block. This was new. Recent labs were reviewed. Her postop anemia has improved. LDL was 86. Renal function is normal. Echocardiogram postop shows resolution of the gradient. Electronically Signed: Emmanuel Haider MD September 19, 2017 2:19 PM CC: Jos Barnes MD CNOV Observed: 09/19/2017 Status: COMPLETED Source: [place] 2:00 PM [facility] OTHER [facility] REPOSITORY Office Visit (AGCARDWST) KEILY RASMUSSEN ([id number]) 1995 F Date Time Provider Department 09/19/17 2:00 PM EMMANUEL HAIDER During your visit today, we recorded the following information about you: Blood pressure Weight Height 135/83 138 kg 1.702 m Emmanuel Haider MD 09/19/2017 5:05 PM Signed PERTINENT CARDIAC HISTORY subvalvular aortic stenosis- repair 2005 with incidental PDA repair, resection of subaortic membrane 06/12 Chest pain Tobaccoism LBBB ADHERENCE TO GUIDELINES RICHARD-I or ARB for HF with prior LVEFANDlt;40 (NQF 0081) - N/A ASA or Plavix for ASHD (NQF 0067) - N/A Beta gurmeet for ASHD with prior CO or prior LVEFANDlt;40 (NQF 0070) - N/A Beta gurmeet for HF with prior LVEFANDlt;40 (NQF 0083) - N/A RICHARD-I or ARB for ASHD with DM or prior LVEFANDlt;40 (NQF 0066) - N/A Statin therapy for ASHD or FHL or DM - N/A BMI documented and plan if ANDgt;25 (NQF 0421) - lifestyle recommendation form Tobacco use screening and referral ([facility] 0028) - lifestyle recommendation form Recommendation for whole food, plant based diet - lifestyle recommendation form CLINICAL IMPRESSION/PLAN: Keily Rasmussen is doing well. She's had a good surgical result. She will need to have surveillance every year. She has elected not to follow-up with this office and states that she will go back to [place] for follow-up. There is no contraindication to returning to work. I gave her a letter indicating that she can return back without restriction. We discussed the fact that she should limit her lifting to no more than 30 pounds for another few months and that she can gradually return to full activity. I am available to her should she change her mind about following locally. She reported to our PSR that she would make her own follow-up appointments. Written and verbal health teaching given to patient, patient verbalizes understanding and agrees with treatment plan. DIAGNOSIS FOR VISIT: Aortic stenosis HISTORY OF PRESENT ILLNESS Keily Rasmussen returns for follow-up. She was referred to [facility] and underwent resection of a subaortic membrane. Her postoperative course was uncomplicated. She has been released. She would like to return to work. She's had minimal incisional discomfort. She reports stable exercise tolerance. She's had no orthopnea or edema. She denies palpitations, TIAs, amaurosis, claudication. 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 ALLERGIES: ALLERGIES Allergen Reactions - Penicillins Hives - Tetanus And Diphthe* Rash Local erythema and swelling in the affected arm. CURRENT OUTPATIENT MEDICATIONS: olopatadine (PATANOL) 0.1 % ophthalmic solution Use 1 Drop in both eyes twice daily. acetaminophen (TYLENOL) 325 mg tablet Take 2 tablets by mouth every 6 hours as needed for Pain or Fever. albuterol HFA (VENTOLIN HFA) 90 mcg/actuation inhaler Inhale 2 Puffs as instructed every 4 hours as needed. PHYSICAL EXAMINATION: VITAL SIGNS: BP 135/83 Ht 5' 7ANDquot; (1.70m) Wt 304 lb 4.8 oz (138.0kg) BMI 47.65 kg/(m2). Chest: Clear to percussion and auscultation. Sternotomy is healing well. There is no click or instability. Trachea is midline. Air entry is equal. Cardiac: Regular rhythm. S1 and S2 are normal. PMI is nondisplaced. Is a soft systolic ejection murmur. Carotids are brisk without bruits. JVP is less than 10 cm. Abdomen: Soft and nontender. There are no pulsatile masses or bruits. No liver enlargement. Bowel sounds are active. Extremities: No edema. Pulses are intact and symmetrical. EKG postop shows left bundle branch block. This was new. Recent labs were reviewed. Her postop anemia has improved. LDL was 86. Renal function is normal. Echocardiogram postop shows resolution of the gradient. Electronically Signed: Emmanuel Haider MD September 19, 2017 2:19 PM CC: MD Emmanuel Fay MD 09/19/2017 2:21 PM Signed LIFESTYLE CHANGE A healthy lifestyle is the most important component of your overall treatment plan. Please give serious thought to the following areas and commit to making roasterman changes. EAT A WHOLE FOOD, PLANT BASED DIET The nutrition your body gets is more important than the medicine you take. What matters most is the overall way you eat. We encourage you to minimize the use of animal products (which include dairy and all meats except fatty fish) and use whole, unprocessed plant foods to provide your protein, vitamins and other nutrients. We have a lot of information to share with you on this topic. We also hold Shared Medical Appointments, where you can come visit with Dr. Haider in the company of other patients and spend over an hour talking about the challenges of changing the way you eat. This is not a ANDquot;dietANDquot;. It is a way of life that you will keep with you. EXERCISE REGULARLY It is not important to spend hours in the gym, lifting weights and perspiring heavily. A total of 2-3 hours per week of aerobic (causing you to be moderately short of breath) exercise is sufficient to improve your health. Talk to us before you begin a new exercise program, if you have heart disease or experience shortness of breath or chest pain. REDUCE STRESS Chronic emotional and physical stress leads to disease. Ways of reducing stress include meditation, visualization, prayer, yoga and other forms of relaxation therapy. Consistency is the ramirez. Find a technique that works for you and do it every day. CULTIVATE RELATIONSHIPS Loneliness and isolation have a major negative impact on health. Seek out others who can love, care for and nurture you. Avoid hurtful relationships. MAINTAIN IDEAL BODY WEIGHT The best way to do this is to do all the things above. Our bodies naturally find the right weight if we keep moving and feed ourselves the right food. If your BMI is greater than 25, we strongly recommend a referral to a weight management program. Please speak to us or your family physician about available programs. AVOID NICOTINE IN ALL FORMS This includes all tobacco products, whether chewed, smoked, vaped, or rubbed on the skin. Smoking cessation programs, which can make use of tobacco substitutes, medications to suppress cravings and behavior management, are available. Please contact your family physician about programs in your area. Referring Provider: EVE REYES ([facility]) [[id number]] Allergies As of Date: 09/19/2017 Noted Allergy Reaction PENICILLINS 11/28/2014 4 - Hives TETANUS AND DIPHTHERIA TOXOIDS, A*04/14/2017 2 - Rash Comments: Local erythema and swelling in the affected arm. Date Reviewed: 09/19/2017 Reviewed by: Wendi Romero - Fully Assessed Reason for Visit: Established Patient [175] Cmt: VSD Primary Visit Diagnosis:Subaortic stenosis [Q24.4] Prescriptions as of 09/19/2017 Sig: OLOPATADINE 0.1 % EYE DROPS Use 1 Drop in both eyes twice* ACETAMINOPHEN 325 MG TABLET Take 2 tablets by mouth every* ALBUTEROL SULFATE HFA 90 MCG/* Inhale 2 Puffs as instructed * Problem List As Of Date 09/19/2017 Noted Resolved Heart valve stenosis [I38] INVALID FOR* Obesity, Class III, BMI 40-49.9 (morbid obesity*INVALID FOR* Hyperinsulinemia [E16.1] INVALID FOR* Adjustment disorder with mixed anxiety and depr*INVALID FOR* Priority: C More... Seasonal allergic rhinitis due to pollen [J30.1]INVALID FOR* Morbid obesity (HCC) [E66.01] Asthma [J45.909] Priority: B More... Aortic stenosis [I35.0] Priority: A More... PCOS (polycystic ovarian syndrome) [E28.2] More... Pre-op testing [Z01.818] INVALID FOR* More... Discharge planning issues [Z02.9] INVALID FOR* Priority: D More... On mechanically assisted ventilation (HCC) [Z99*INVALID FOR*06/18/2017 Priority: B More... Acute post-operative pain [G89.18] INVALID FOR* Priority: C More... Atelectasis [J98.11] INVALID FOR* Priority: B More... Hypovolemia [E86.1] INVALID FOR*06/18/2017 Priority: F More... Essential hypertension [I10] INVALID FOR* Priority: C More... Transition of care performed with sharing of cl*INVALID FOR* Priority: Very Severe More... Nicotine use disorder, F17.2 [F17.200] INVALID FOR* Other instructions from your clinician: LIFESTYLE CHANGE A healthy lifestyle is the most important component of your overall treatment plan. Please give serious thought to the following areas and commit to making roasterman changes. EAT A WHOLE FOOD, PLANT BASED DIET The nutrition your body gets is more important than the medicine you take. What matters most is the overall way you eat. We encourage you to minimize the use of animal products (which include dairy and all meats except fatty fish) and use whole, unprocessed plant foods to provide your protein, vitamins and other nutrients. We have a lot of information to share with you on this topic. We also hold Shared Medical Appointments, where you can come visit with Dr. Haider in the company of other patients and spend over an hour talking about the challenges of changing the way you eat. This is not a diet. It is a way of life that you will keep with you. EXERCISE REGULARLY It is not important to spend hours in the gym, lifting weights and perspiring heavily. A total of 2-3 hours per week of aerobic (causing you to be moderately short of breath) exercise is sufficient to improve your health. Talk to us before you begin a new exercise program, if you have heart disease or experience shortness of breath or chest pain. REDUCE STRESS Chronic emotional and physical stress leads to disease. Ways of reducing stress include meditation, visualization, prayer, yoga and other forms of relaxation therapy. Consistency is the ramirez. Find a technique that works for you and do it every day. CULTIVATE RELATIONSHIPS Loneliness and isolation have a major negative impact on health. Seek out others who can love, care for and nurture you. Avoid hurtful relationships. MAINTAIN IDEAL BODY WEIGHT The best way to do this is to do all the things above. Our bodies naturally find the right weight if we keep moving and feed ourselves the right food. If your BMI is greater than 25, we strongly recommend a referral to a weight management program. Please speak to us or your family physician about available programs. AVOID NICOTINE IN ALL FORMS This includes all tobacco products, whether chewed, smoked, vaped, or rubbed on the skin. Smoking cessation programs, which can make use of tobacco substitutes, medications to suppress cravings and behavior management, are available. Please contact your family physician about programs in your area. Letter Text Emmanuel Haider M.D. Department of Cardiology [address] [place], [place] [id number] Keily Rasmussen September 19, 2017 1995 To whom it may concern: Keily Rasmussen is under My care and has been released to return to work without restriction. Sincerely, Emmanuel Haider MD Encounter Status:Closed by EMMANUEL HAIDER MD on 09/19/17 PROGRESS Observed: 09/16/2017 Status: COMPLETED Source: [place] 8:47 AM [facility] [place] REPOSITORY HNO ID: [id number] Author: Melisa He) Podlogar Service: (none) Author Type: Nurse Practitioner Type: Progress Notes Filed: 09/18/2017 6:53 AM Note Text: 09/16/2017 Patient presents with: Allergies: pt states Dr. Campbell took her off allergies pills because it was winter, now runny nose, nasal congestion, and itchy eyes SUBJECTIVE: This is a 22 year old that is here today for Above Complaints. Ambreen reports she was seen by Dr. Campbell this past winter and he took her off her allergy medications because it was winter. She reports she has been having a runny nose, nasal congestion, and itchy eyes. Reports symtpoms started 3-4 days ago. Has used certrizine in the past which helped. Denies fever, body aches, chills, ear pain, coughing, SOB, dyspnea, chest pain, or palpitations. Positive for occasional wheezing relieved with albuterol inhaler- uses inhaler a couple times a week and more in the summer. Patient continue to smoke 1/2 ppd is trying to cut down. PAST MEDICAL HISTORY Diagnosis Date - Aortic stenosis s/p repair of a PDA and subvalvular aortic stenosis. Sees Dr. Haider and Dr. Marie - Asthma - Morbid obesity (HCC) - PCOS (polycystic ovarian syndrome) elevated testosterone and elevated insulin - PDA (patent ductus arteriosus) s/p repair age 10 - Tobacco use ALLERGIES Penicillins; Tetanus And Diphtheria Toxoids, Adsorbed, Adult MEDICATIONS Current Outpatient Prescriptions: acetaminophen (TYLENOL) 325 mg tablet Take 2 tablets by mouth every 6 hours as needed for Pain or Fever. albuterol HFA (VENTOLIN HFA) 90 mcg/actuation inhaler Inhale 2 Puffs as instructed every 4 hours as needed. No current facility-administered medications for this visit. Medications and allergies reviewed by this provider. SOCIAL HISTORY Social History Marital status: Single Spouse name: Years of education: Number of children: Occupational History Occupation Employer Comment Unemployed Social History Main Topics Smoking status: Current Every Day Smoker Packs/day: 0.50 Years: 2.00 Types: Cigarettes Smokeless status: Never Used Alcohol use: No Drug use: No Sexual activity: Yes Partners with: Male REVIEW OF SYSTEMS GENERAL: No weight loss, malaise or fevers HEENT: SEE HPI NECK: Negative for lumps, goiter, pain and significant neck swelling RESPIRATORY: See HPI CARDIOVASCULAR: Negative for chest pain, leg swelling, hypertension, CHF or palpitations All other reviewed and negative other than HPI. OBJECTIVE: BP 120/70 (BP Site: Left Arm, BP Position: Sitting, BP Cuff Size: Large Adult) Pulse 68 Resp 18 Wt (!) 136.5 kg (301 lb) BMI 46.42 kg/m2. Vital signs reviewed by this provider. APPEARANCE Well appearing, alert, in no acute distress, well-hydrated, well nourished., Morbidly obese EYES PERRLA, conjunctiva and sclera normal. EARS External ears normal, canals clear NOSE/SINUS positive findings: mucosa erythematous and swollen, clear rhinorrhea THROAT no erythema, 1+ tonsils bilaterally NECK Supple, no adenopathy; thyroid symmetric, normal size, no bruits HEART RRR with normal S1 and S2, no murmurs, no gallops, no JVD appreciated LUNG clear to auscultation ASSESSMENT/PLAN: 1. Itchy eyes - ICD9: 379.99, ICD10: H57.8 (primary diagnosis) - likely seasonal allergies - no red flag exam findings - red flag symptoms discussed, patient verbalizes understanding - restart cetrizine daily - follow-up if worsening or persisitng 2. Rhinorrhea - ICD9: 478.19, ICD10: J34.89 - likely related to seasonal allergies - no red flag exam findings - red flag symptoms discussed, patient verbalized understanding - offered Flonase nasal spray, patient declined - restart cetrizine - Patanol 0.1% 1 drop both eyes daily - Follow up if symptoms persist or worsen. Melisa Barrientos, TEST GRADER.JOHN Prescription instructions reviewed with patient as applicable. Patient advised if symptoms do not improve or if symptoms worsen sooner, to contact their primary care physician. Potential red flag symptoms discussed with the patient. Reviewed appropriate action plan to take if red flag symptoms occur. Patient agreeable to treatment plan. CNOV Observed: 09/16/2017 Status: COMPLETED Source: [place] 8:20 AM [facility] REPOSITORY Office Visit (FAMPWS) KEILY RASMUSSEN ([id number]) 1995 F Date Time Provider Department 09/16/17 8:20 AM MELISA BARRIENTOS (JOHN) FAMPWS During your visit today, we recorded the following information about you: Pulse Respiration Blood pressure Weight 68/minute 18/minute 120/70 136.5 kg Melisa Barrientos APRN.JOHN 09/18/2017 6:53 AM Signed 09/16/2017 Patient presents with: Allergies: pt states Dr. Campbell took her off allergies pills because it was winter, now runny nose, nasal congestion, and itchy eyes SUBJECTIVE: This is a 22 year old that is here today for Above Complaints. Ambreen reports she was seen by Dr. Campbell this past winter and he took her off her allergy medications because it was winter. She reports she has been having a runny nose, nasal congestion, and itchy eyes. Reports symtpoms started 3-4 days ago. Has used certrizine in the past which helped. Denies fever, body aches, chills, ear pain, coughing, SOB, dyspnea, chest pain, or palpitations. Positive for occasional wheezing relieved with albuterol inhaler- uses inhaler a couple times a week and more in the summer. Patient continue to smoke 1/2 ppd is trying to cut down. PAST MEDICAL HISTORY Diagnosis Date - Aortic stenosis s/p repair of a PDA and subvalvular aortic stenosis. Sees Dr. Haider and Dr. Marie - Asthma - Morbid obesity (HCC) - PCOS (polycystic ovarian syndrome) elevated testosterone and elevated insulin - PDA (patent ductus arteriosus) s/p repair age 10 - Tobacco use ALLERGIES Penicillins; Tetanus And Diphtheria Toxoids, Adsorbed, Adult MEDICATIONS Current Outpatient Prescriptions: acetaminophen (TYLENOL) 325 mg tablet Take 2 tablets by mouth every 6 hours as needed for Pain or Fever. albuterol HFA (VENTOLIN HFA) 90 mcg/actuation inhaler Inhale 2 Puffs as instructed every 4 hours as needed. No current facility-administered medications for this visit. Medications and allergies reviewed by this provider. SOCIAL HISTORY Social History Marital status: Single Spouse name: Years of education: Number of children: Occupational History Occupation Employer Comment Unemployed Social History Main Topics Smoking status: Current Every Day Smoker Packs/day: 0.50 Years: 2.00 Types: Cigarettes Smokeless status: Never Used Alcohol use: No Drug use: No Sexual activity: Yes Partners with: Male REVIEW OF SYSTEMS GENERAL: No weight loss, malaise or fevers HEENT: SEE HPI NECK: Negative for lumps, goiter, pain and significant neck swelling RESPIRATORY: See HPI CARDIOVASCULAR: Negative for chest pain, leg swelling, hypertension, CHF or palpitations All other reviewed and negative other than HPI. OBJECTIVE: BP 120/70 (BP Site: Left Arm, BP Position: Sitting, BP Cuff Size: Large Adult) Pulse 68 Resp 18 Wt (!) 136.5 kg (301 lb) BMI 46.42 kg/m2. Vital signs reviewed by this provider. APPEARANCE Well appearing, alert, in no acute distress, well- hydrated, well nourished., Morbidly obese EYES PERRLA, conjunctiva and sclera normal. EARS External ears normal, canals clear NOSE/SINUS positive findings: mucosa erythematous and swollen, clear rhinorrhea THROAT no erythema, 1+ tonsils bilaterally NECK Supple, no adenopathy; thyroid symmetric, normal size, no bruits HEART RRR with normal S1 and S2, no murmurs, no gallops, no JVD appreciated LUNG clear to auscultation ASSESSMENT/PLAN: 1. Itchy eyes - ICD9: 379.99, ICD10: H57.8 (primary diagnosis) - likely seasonal allergies - no red flag exam findings - red flag symptoms discussed, patient verbalizes understanding - restart cetrizine daily - follow-up if worsening or persisitng 2. Rhinorrhea - ICD9: 478.19, ICD10: J34.89 - likely related to seasonal allergies - no red flag exam findings - red flag symptoms discussed, patient verbalized understanding - offered Flonase nasal spray, patient declined - restart cetrizine - Patanol 0.1% 1 drop both eyes daily - Follow up if symptoms persist or worsen. Melisa Aragonlogjoel, TEST GRADER.FLOUR TESTER Prescription instructions reviewed with patient as applicable. Patient advised if symptoms do not improve or if symptoms worsen sooner, to contact their primary care physician. Potential red flag symptoms discussed with the patient. Reviewed appropriate action plan to take if red flag symptoms occur. Patient agreeable to treatment plan. Melisa Barrientos, TEST GRADER.JOHN 09/16/2017 8:58 AM Signed Resume cetirizine as before. Referring Provider: SELF [[id number]] Allergies As of Date: 09/16/2017 Noted Allergy Reaction PENICILLINS 11/28/2014 4 - Hives TETANUS AND DIPHTHERIA TOXOIDS, A*04/14/2017 2 - Rash Comments: Local erythema and swelling in the affected arm. Date Reviewed: 09/16/2017 Reviewed by: Irene Pimentel LPN - Fully Assessed Reason for Visit: Allergies [4] Cmt: pt states Dr. Campbell took heroff allergies pills because it was winter, now runny nose, nasal congestion, itchy eyes headaches. Primary Visit Diagnosis:Itchy eyes [H57.8] Other Visit Diagnosis:Rhinorrhea [J34.89] Order(s):olopatadine (PATANOL) 0.1 % ophthalmic solutionUse 1 Drop in both eyes twice daily.Disp: 5 mLRfl: 3 Prescriptions as of 09/16/2017 Sig: ACETAMINOPHEN 325 MG TABLET Take 2 tablets by mouth every* ALBUTEROL SULFATE HFA 90 MCG/* Inhale 2 Puffs as instructed * OLOPATADINE 0.1 % EYE DROPS Use 1 Drop in both eyes twice* Problem List As Of Date 09/16/2017 Noted Resolved Heart valve stenosis [I38] INVALID FOR* Obesity, Class III, BMI 40-49.9 (morbid obesity*INVALID FOR* Hyperinsulinemia [E16.1] INVALID FOR* Adjustment disorder with mixed anxiety and depr*INVALID FOR* Priority: C More... Seasonal allergic rhinitis due to pollen [J30.1]INVALID FOR* Morbid obesity (HCC) [E66.01] Asthma [J45.909] Priority: B More... Aortic stenosis [I35.0] Priority: A More... PCOS (polycystic ovarian syndrome) [E28.2] More... Pre-op testing [Z01.818] INVALID FOR* More... Discharge planning issues [Z02.9] INVALID FOR* Priority: D More... On mechanically assisted ventilation (HCC) [Z99*INVALID FOR*06/18/2017 Priority: B More... Acute post-operative pain [G89.18] INVALID FOR* Priority: C More... Atelectasis [J98.11] INVALID FOR* Priority: B More... Hypovolemia [E86.1] INVALID FOR*06/18/2017 Priority: F More... Essential hypertension [I10] INVALID FOR* Priority: C More... Transition of care performed with sharing of cl*INVALID FOR* Priority: Very Severe More... Nicotine use disorder, F17.2 [F17.200] INVALID FOR* Other instructions from your clinician: Resume cetirizine as before. Prescriptions ordered this encounter Disp Refills Start End OLOPATADINE 0.1 % EYE DROPS 5 mL 3 09/16/2017 Route: BOTH EYES Sig: Use 1 Drop in both eyes twice daily. Medications Discontinued During This Encounter buPROPion SR (WELLBUTRIN SR) 150 mg * 60 t* 2 05/30/2017 09/16/2017 Route: ORAL Sig: Take 1 tablet by mouth twice daily. Disc: Discontinued by Patient metoprolol tartrate, short acting, (* 120 * 2 06/21/2017 09/16/2017 Route: ORAL Sig: Take 2 tablets by mouth twice daily. Disc: Discontinued by another Health Care Provider Follow-up and Disposition History Recorded Encounter Status:Closed by MELISA BARRIENTOS CNP on 09/18/17 CNNURSE Observed: 08/26/2017 Status: COMPLETED Source: [place] 6:00 PM [facility] REPOSITORY Nurse Visit (CARTMN) KEILY RASMUSSEN ([id number]) 1995 F Date Time Provider Department 08/26/17 6:00 PM RESEARCH NURSE [facility] During your visit today, we recorded the following information about you: Terrence Hurtado 08/26/2017 11:38 AM Signed IRB #[id number] [place] Study ?? PI: Dr. Callaway ? I spoke to patient via phone for 30 day follow-up on 07/27/2017. [facility] [place] Follow-up Survey was completed. ?? Terrence [id number] Referring Provider: ALBERTO UMANA [[id number]] Allergies As of Date: 08/26/2017 Noted Allergy Reaction PENICILLINS 11/28/2014 4 - Hives TETANUS AND DIPHTHERIA TOXOIDS, A*04/14/2017 2 - Rash Comments: Local erythema and swelling in the affected arm. Date Reviewed: 08/22/2017 Reviewed by: Tracy Segovia Ma - Fully Assessed Reason for Visit: Research [293] Cmt: Tonny Procedure Study Primary Visit Diagnosis:Examination of participant in clinical trial [Z00.6] Prescriptions as of 08/26/2017 Sig: ACETAMINOPHEN 325 MG TABLET Take 2 tablets by mouth every* METOPROLOL TARTRATE 25 MG TAB* Take 2 tablets by mouth twice* ALBUTEROL SULFATE HFA 90 MCG/* Inhale 2 Puffs as instructed * BUPROPION HCL SR 150 MG TABLE* Take 1 tablet by mouth twice * Problem List As Of Date 08/26/2017 Noted Resolved Heart valve stenosis [I38] INVALID FOR* Obesity, Class III, BMI 40-49.9 (morbid obesity*INVALID FOR* Hyperinsulinemia [E16.1] INVALID FOR* Adjustment disorder with mixed anxiety and depr*INVALID FOR* Priority: C More... Seasonal allergic rhinitis due to pollen [J30.1]INVALID FOR* Morbid obesity (HCC) [E66.01] Asthma [J45.909] Priority: B More... Aortic stenosis [I35.0] Priority: A More... PCOS (polycystic ovarian syndrome) [E28.2] More... Pre-op testing [Z01.818] INVALID FOR* More... Discharge planning issues [Z02.9] INVALID FOR* Priority: D More... On mechanically assisted ventilation (HCC) [Z99*INVALID FOR*06/18/2017 Priority: B More... Acute post-operative pain [G89.18] INVALID FOR* Priority: C More... Atelectasis [J98.11] INVALID FOR* Priority: B More... Hypovolemia [E86.1] INVALID FOR*06/18/2017 Priority: F More... Essential hypertension [I10] INVALID FOR* Priority: C More... Transition of care performed with sharing of cl*INVALID FOR* Priority: Very Severe More... Nicotine use disorder, F17.2 [F17.200] INVALID FOR* Encounter Status:Closed by TERRENCE MERCEDES on 08/26/17 PROGRESS Observed: 08/26/2017 Status: COMPLETED Source: [place] 11:37 AM [facility] [place] REPOSITORY HNO ID: [id number] Author: Terrence Hurtado Service: (none) Author Type: (none) Type: Progress Notes Filed: 08/26/2017 11:38 AM Note Text: IRB #[id number] [place] Study ?? PI: Dr. Callaway ? I spoke to patient via phone for 30 day follow-up on 07/27/2017. [facility] [place] Follow-up Survey was completed. ?? Terrence [id number] CNOV Observed: 08/22/2017 Status: COMPLETED Source: [place] 3:30 PM [facility] REPOSITORY Office Visit (KADEN) KEILY RASMUSSEN ([id number]) 1995 F Date Time Provider Department 08/22/17 3:30 PM UMBERTO MARIE During your visit today, we recorded the following information about you: Pulse Blood pressure Weight Height 60/minute 124/73 134.8 kg 1.715 m Umberto Marie MD 08/22/2017 4:03 PM [facility] [place] Michelle Stark Department of Cardiovascular Medicine SECTION OF CARDIOVASCULAR IMAGING OUTPATIENT VISIT DATE August 22, 2017 OUTPATIENT VISIT TYPE ESTABLISHED PRIMARY CARE PHYSICIAN: Jos Barnes MD [id number] [place] [address] CHIEF COMPLAINT: Follow up after resection of subaortic membrane HISTORY OF PRESENT ILLNESS: Ms. Rasmsusen is a 22 year old female who presents today for follow-up visit. Since her last visit, she states that she is doing well. She does have some incisional pain, though this is improving. She has no dyspnea on exertion. She also denies chest pain, orthopnea, cough, edema, palpitations, PND, lightheadedness or syncope. 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 Her history is significant for surgery when she was 10 years old; by report, PDA repair and subvalvular aortic stenosis and Obesity (BMI is 48). She returns today for post-op follow up. She is s/p Reoperation,Re-resection of subaortic ?membrane 06/17/[address] Himanshu Umana She was discharged 06/21/17. EKG 06/23/16: NORMAL SINUS RHYTHM. COMPLETE LEFT BUNDLE BRANCH BLOCK. ABNORMAL ECG. Echocardiogram 06/21/16: CONCLUSIONS: - Technically difficult exam due to body habitus and suboptimal positioning. - Exam indication: Re-evaluation of known valvular heart disease with change in clinical status - The left ventricle is normal in size. There is mild concentric left ventricular hypertrophy. Left ventricular systolic function is normal. EF = 64 ? 5% (2D biplane) Normal left ventricular diastolic function. - The right ventricle is normal in size. Right ventricular systolic function is normal. - There is mild (1+) aortic valve regurgitation. - Estimated right ventricular systolic pressure is 36 mmHg consistent with mild pulmonary hypertension. Estimated right atrial pressure is 10 mmHg. - Resting LVOT gradient of 18mmHg, with no significant change with Valsalva. - Exam was compared with the prior echocardiographic exam performed on 06/17/2017 (intra-op KIRA). Patient is s/p subaortic membrane resection with resolution of high LVOT gradients. Component 06/27/2017 WBC 14.70 (H) RBC 3.65 (L) Hemoglobin 9.3 (L) Hematocrit 31.0 (L) MCV 84.9 MCH 25.5 (L) MCHC 30.0 (L) RDW-CV 15.1 (H) Platelet Count 557 (H) MPV 9.6 Neut% 73.1 Abs Neut (ANC) 10.75 (H) Lymph% 18.3 Abs Lymph 2.69 [place]% 4.3 Abs [place] 0.63 Eosin% 2.6 Abs Eosin 0.38 Baso% 0.0 Abs Baso 0.00 Myelo% 1.7 Left Shift Present Red Cell Morph SEE COMMENT Platelet Estimate Platelet estimate increased Diff Type Manual Diff Protein, Total 7.2 Albumin 3.6 (L) Calcium 9.1 Bilirubin, Total ANDlt;0.2 (L) Alkaline Phosphatase 68 AST 15 Glucose 105 (H) BUN 8 Creatinine 0.66 Sodium 138 Potassium 4.0 Chloride 100 CO2 24 Anion Gap 14 ALT 19 eGFR- ANDgt;60 eGFR-All Other Races ANDgt;60 PAST MEDICAL HISTORY Diagnosis Date - Aortic stenosis s/p repair of a PDA and subvalvular aortic stenosis. Sees Dr. Haiedr and Dr. Marie - Asthma - Morbid obesity (HCC) - PCOS (polycystic ovarian syndrome) elevated testosterone and elevated insulin - PDA (patent ductus arteriosus) s/p repair age 10 - Tobacco use PAST SURGICAL HISTORY Procedure Laterality Date - PAST SURGICAL HISTORY OF Repair of a PDA and subvalvular aortic stenosis-childhood SOCIAL HISTORY Social History Substance Use Topics - Smoking status: Current Every Day Smoker Packs/day: 0.50 Years: 2.00 Types: Cigarettes - Smokeless tobacco: Never Used - Alcohol use No FAMILY HISTORY Problem Relation Age of Onset - COPD Mother - Thyroid Mother - Asthma Mother - Diabetes Father - Heart Father CO - Bone Disease [OTHER] Brother - COPD Sister - Diabetes Brother - Hypertension Maternal Grandmother - COPD Maternal Grandmother - Emphysema Maternal Grandmother - Heart Maternal Grandfather - Hypertension Maternal Grandfather - Cancer Paternal Uncle ALLERGIES: ALLERGIES Allergen Reactions - Penicillins Hives - Tetanus And Diphthe* Rash Local erythema and swelling in the affected arm. MEDICATIONS: triamcinolone acetonide (KENALOG) 0.1 % cream Apply 1 application to affected area three times daily. Apply sparingly to area for rash/itching. acetaminophen (TYLENOL) 325 mg tablet Take 2 tablets by mouth every 6 hours as needed for Pain or Fever. metoprolol tartrate, short acting, (LOPRESSOR) 25 mg tablet Take 2 tablets by mouth twice daily. therapeutic multivitamin (THERA VITAMIN) tablet Take 1 tablet by mouth daily with breakfast. aspirin 81 mg chewable tablet Take 1 tablet by mouth once daily. albuterol HFA (VENTOLIN HFA) 90 mcg/actuation inhaler Inhale 2 Puffs as instructed every 4 hours as needed. buPROPion SR (WELLBUTRIN SR) 150 mg 12 hr tablet Take 1 tablet by mouth twice daily. Blood Pressure Test Kit-Large (QUICK RESPONSE BP MONITOR) kit Bp check weekly and as needed. (R03.0) Elevated blood pressure reading without diagnosis of hypertension REVIEW OF SYSTEMS: GENERAL: Negative for: Weight loss or gain, Fever or Chills, Weakness and Sleep difficulties. HEENT: Negative for: Headache, Impaired Vision, Glasses, Hearing Impairment, Ringing in Ears, Nosebleeds, Poor dental care, Bleeding Gums, Dentures NECK: Negative for: Swelling, Pain, Stiffness RESPIRATORY: Negative for: Cough, Blood in Sputum, Shortness of breath, Wheezing, Apnea GASTROINTESTINAL: Negative for: Trouble swallowing, Heartburn, Change in bowel habits, Blood in stool, Dark black stools MUSCULOSKELETAL: Negative for: Muscle or joint pain, Stiffness , Joint swelling NEUROLOGIC/PSYCHIATRIC: Negative for: Weakness, Paralysis, Numbness, Tingling, Tremor, Nervousness, Depressed mood, Memory loss SKIN: Negative for: Rashes, Itching HEMATOLOGICAL/LYMPHATIC: Negative for: Easy bruising , Easy bleeding ENDOCRINE: Negative for: Heat or cold intolerance, Excessive sweating, Frequent urination, Frequent thirst PHYSICAL EXAMINATION: BP 124/73 Pulse 60 Ht 171.5 cm (5' 7.52ANDquot;) Wt 134.8 kg (297 lb 3.2 oz) SpO2 96% BMI 45.83 kg/m2 General: Obese, Well appearing, in no acute distress. Skin: No clubbing, no cyanosis. Well-healed midline sternotomy scar. Eyes: Extra ocular movements intact Oropharynx: Teeth in good repair. Neck: No jugular venous distention, no carotid bruits, carotids have a normal upstroke, no palpable thyromegaly. Lungs: Clear to auscultation bilaterally, no wheezing or rhonchi. Heart: Regular rhythm, PMI not displaced, S1, S2 normal, no S3, no S4, no heaves, no rub and no murmur. Abdomen: Soft, nontender, bowel sounds normal, no palpable organomegaly, no bruits. Extremities: No peripheral edema . Grade 2/4 distal pulses bilaterally. Neuro: Oriented to person, place and time, alert, cooperative, gait coordinated. CARDIOVASCULAR MEDICINE TESTING: Electrocardiogram: Normal sinus rhythm, complete left bundle branch block Echocardiogram: - Technically difficult exam due to body habitus. - Exam indication: S/P subaortic membrane resection - The left ventricle is normal in size. There is mild upper septal left ventricular hypertrophy. Left ventricular systolic function is normal. EF = 68 ? 5% (2D biplane) Left ventricular diastolic function was not evaluated. - The right ventricle is normal in size. Right ventricular systolic function is normal. - The left atrial cavity is mildly dilated. - Mild 1+ aortic regurgitation. - At rest, LVOT gradient is 16mmhg (HR 55 bpm). There is no change with valsalva. ? - Exam was compared with the prior echocardiographic exam performed on 06/21/2017. No change. I have personally reviewed the Electrocardiogram and Echocardiogram. IMPRESSION: Ms. Rasmussen is a 22 year old female who is doing well after repeat cardiac surgery with resection of a subaortic membrane. Her echocardiogram today shows no significant gradient across left ventricular outflow tract and mild aortic regurgitation. PLAN AND RECOMMENDATIONS: 1. OK to drive. 2. OK to return to work. 3. Do not lift more than 25 pounds for now. 4. Okay to stop metoprolol. 5. Encourage smoking cessation. She will follow-up with Dr Haider. I personally interviewed, confirmed and edited the above information as obtained by others. CONTACT INFORMATION: Umberto Marie MD August 22, 2017 4:01 PM Referring Provider: UMBERTO MARIE [[id number]] Allergies As of Date: 08/22/2017 Noted Allergy Reaction PENICILLINS 11/28/2014 4 - Hives TETANUS AND DIPHTHERIA TOXOIDS, A*04/14/2017 2 - Rash Comments: Local erythema and swelling in the affected arm. 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] Other Visit Diagnoses:Aortic valve insufficiency, etiology of cardiac valve disease unspecified [I35.1] Dyspnea on exertion [R06.09] Nicotine use disorder, F17.2 [F17.200] Prescriptions as of 08/22/2017 Sig: ACETAMINOPHEN 325 MG TABLET Take 2 tablets by mouth every* METOPROLOL TARTRATE 25 MG TAB* Take 2 tablets by mouth twice* ALBUTEROL SULFATE HFA 90 MCG/* Inhale 2 Puffs as instructed * BUPROPION HCL SR 150 MG TABLE* Take 1 tablet by mouth twice * Problem List As Of Date 08/22/2017 Noted Resolved Heart valve stenosis [I38] INVALID FOR* Obesity, Class III, BMI 40-49.9 (morbid obesity*INVALID FOR* Hyperinsulinemia [E16.1] INVALID FOR* Adjustment disorder with mixed anxiety and depr*INVALID FOR* Priority: C More... Seasonal allergic rhinitis due to pollen [J30.1]INVALID FOR* Morbid obesity (HCC) [E66.01] Asthma [J45.909] Priority: B More... Aortic stenosis [I35.0] Priority: A More... PCOS (polycystic ovarian syndrome) [E28.2] More... Pre-op testing [Z01.818] INVALID FOR* More... Discharge planning issues [Z02.9] INVALID FOR* Priority: D More... On mechanically assisted ventilation (HCC) [Z99*INVALID FOR*06/18/2017 Priority: B More... Acute post-operative pain [G89.18] INVALID FOR* Priority: C More... Atelectasis [J98.11] INVALID FOR* Priority: B More... Hypovolemia [E86.1] INVALID FOR*06/18/2017 Priority: F More... Essential hypertension [I10] INVALID FOR* Priority: C More... Transition of care performed with sharing of cl*INVALID FOR* Priority: Very Severe More... Nicotine use disorder, F17.2 [F17.200] INVALID FOR* Medications Discontinued During This Encounter aspirin 81 mg chewable tablet 06/22/2017 08/22/2017 Class: OTC Route: ORAL Sig: Take 1 tablet by mouth once daily. Disc: Discontinued by Patient Blood Pressure Test Kit-Large (QUICK* 1 Kit 0 04/14/2017 08/22/2017 Class: Print RX Sig: Bp check weekly and as needed. (R03.0) Elevated blood pressure reading without diagnosis of hypertension Disc: Discontinued by Patient therapeutic multivitamin (THERA KRISTEN* 30 t* 0 06/22/2017 08/22/2017 Route: ORAL Sig: Take 1 tablet by mouth daily with breakfast. Disc: Discontinued by Patient triamcinolone acetonide (KENALOG) 0.* 1 Tu* 0 08/05/2017 08/22/2017 Route: TOPICAL Sig: Apply 1 application to affected area three times daily. Apply sparingly to area for rash/itching. Disc: Discontinued by Patient Encounter Status:Closed by UMBERTO MARIE MD on 08/22/17 PROGRESS Observed: 08/22/2017 Status: COMPLETED Source: [place] 1:04 PM [facility] REPOSITORY HNO ID: [id number] Author: Umberto Marie Service: (none) Author Type: Physician Type: Progress Notes Filed: 08/22/2017 4:03 PM Note Text: [facility] [place] [facility] Department of Cardiovascular Medicine SECTION OF CARDIOVASCULAR IMAGING OUTPATIENT VISIT DATE August 22, 2017 OUTPATIENT VISIT TYPE ESTABLISHED PRIMARY CARE PHYSICIAN: Jos Barnes MD [address] [place] [address] CHIEF COMPLAINT: Follow up after resection of subaortic membrane HISTORY OF PRESENT ILLNESS: Ms. Rasmussen is a 22 year old female who presents today for follow-up visit. Since her last visit, she states that she is doing well. She does have some incisional pain, though this is improving. She has no dyspnea on exertion. She also denies chest pain, orthopnea, cough, edema, palpitations, PND, lightheadedness or syncope. 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 Her history is significant for surgery when she was 10 years old; by report, PDA repair and subvalvular aortic stenosis and Obesity (BMI is 48). She returns today for post-op follow up. She is s/p Reoperation,Re-resection of subaortic ?membrane 06/17/[address] Himanshu Umana She was discharged 06/21/17. EKG 06/23/16: NORMAL SINUS RHYTHM. COMPLETE LEFT BUNDLE BRANCH BLOCK. ABNORMAL ECG. Echocardiogram 06/21/16: CONCLUSIONS: - Technically difficult exam due to body habitus and suboptimal positioning. - Exam indication: Re-evaluation of known valvular heart disease with change in clinical status - The left ventricle is normal in size. There is mild concentric left ventricular hypertrophy. Left ventricular systolic function is normal. EF = 64 ? 5% (2D biplane) Normal left ventricular diastolic function. - The right ventricle is normal in size. Right ventricular systolic function is normal. - There is mild (1+) aortic valve regurgitation. - Estimated right ventricular systolic pressure is 36 mmHg consistent with mild pulmonary hypertension. Estimated right atrial pressure is 10 mmHg. - Resting LVOT gradient of 18mmHg, with no significant change with Valsalva. - Exam was compared with the prior echocardiographic exam performed on 06/17/2017 (intra-op [facility]). Patient is s/p subaortic membrane resection with resolution of high LVOT gradients. Component 06/27/2017 WBC 14.70 (H) RBC 3.65 (L) Hemoglobin 9.3 (L) Hematocrit 31.0 (L) MCV 84.9 MCH 25.5 (L) MCHC 30.0 (L) RDW-CV 15.1 (H) Platelet Count 557 (H) MPV 9.6 Neut% 73.1 Abs Neut (ANC) 10.75 (H) Lymph% 18.3 Abs Lymph 2.69 [place]% 4.3 Abs [place] 0.63 Eosin% 2.6 Abs Eosin 0.38 Baso% 0.0 Abs Baso 0.00 Myelo% 1.7 Left Shift Present Red Cell Morph SEE COMMENT Platelet Estimate Platelet estimate increased Diff Type Manual Diff Protein, Total 7.2 Albumin 3.6 (L) Calcium 9.1 Bilirubin, Total <0.2 (L) Alkaline Phosphatase 68 AST 15 Glucose 105 (H) BUN 8 Creatinine 0.66 Sodium 138 Potassium 4.0 Chloride 100 CO2 24 Anion Gap 14 ALT 19 eGFR- >60 eGFR-All Other Races >60 PAST MEDICAL HISTORY Diagnosis Date - Aortic stenosis s/p repair of a PDA and subvalvular aortic stenosis. Sees Dr. Haider and Dr. Marie - Asthma - Morbid obesity (HCC) - PCOS (polycystic ovarian syndrome) elevated testosterone and elevated insulin - PDA (patent ductus arteriosus) s/p repair age 10 - Tobacco use PAST SURGICAL HISTORY Procedure Laterality Date - PAST SURGICAL HISTORY OF Repair of a PDA and subvalvular aortic stenosis-childhood SOCIAL HISTORY Social History Substance Use Topics - Smoking status: Current Every Day Smoker Packs/day: 0.50 Years: 2.00 Types: Cigarettes - Smokeless tobacco: Never Used - Alcohol use No FAMILY HISTORY Problem Relation Age of Onset - COPD Mother - Thyroid Mother - Asthma Mother - Diabetes Father - Heart Father CO - Bone Disease [OTHER] Brother - COPD Sister - Diabetes Brother - Hypertension Maternal Grandmother - COPD Maternal Grandmother - Emphysema Maternal Grandmother - Heart Maternal Grandfather - Hypertension Maternal Grandfather - Cancer Paternal Uncle ALLERGIES: ALLERGIES Allergen Reactions - Penicillins Hives - Tetanus And Diphthe* Rash Local erythema and swelling in the affected arm. MEDICATIONS: triamcinolone acetonide (KENALOG) 0.1 % cream Apply 1 application to affected area three times daily. Apply sparingly to area for rash/itching. acetaminophen (TYLENOL) 325 mg tablet Take 2 tablets by mouth every 6 hours as needed for Pain or Fever. metoprolol tartrate, short acting, (LOPRESSOR) 25 mg tablet Take 2 tablets by mouth twice daily. therapeutic multivitamin (THERA VITAMIN) tablet Take 1 tablet by mouth daily with breakfast. aspirin 81 mg chewable tablet Take 1 tablet by mouth once daily. albuterol HFA (VENTOLIN HFA) 90 mcg/actuation inhaler Inhale 2 Puffs as instructed every 4 hours as needed. buPROPion SR (WELLBUTRIN SR) 150 mg 12 hr tablet Take 1 tablet by mouth twice daily. Blood Pressure Test Kit-Large (QUICK RESPONSE BP MONITOR) kit Bp check weekly and as needed. (R03.0) Elevated blood pressure reading without diagnosis of hypertension REVIEW OF SYSTEMS: GENERAL: Negative for: Weight loss or gain, Fever or Chills, Weakness and Sleep difficulties. HEENT: Negative for: Headache, Impaired Vision, Glasses, Hearing Impairment, Ringing in Ears, Nosebleeds, Poor dental care, Bleeding Gums, Dentures NECK: Negative for: Swelling, Pain, Stiffness RESPIRATORY: Negative for: Cough, Blood in Sputum, Shortness of breath, Wheezing, Apnea GASTROINTESTINAL: Negative for: Trouble swallowing, Heartburn, Change in bowel habits, Blood in stool, Dark black stools MUSCULOSKELETAL: Negative for: Muscle or joint pain, Stiffness , Joint swelling NEUROLOGIC/PSYCHIATRIC: Negative for: Weakness, Paralysis, Numbness, Tingling, Tremor, Nervousness, Depressed mood, Memory loss SKIN: Negative for: Rashes, Itching HEMATOLOGICAL/LYMPHATIC: Negative for: Easy bruising , Easy bleeding ENDOCRINE: Negative for: Heat or cold intolerance, Excessive sweating, Frequent urination, Frequent thirst PHYSICAL EXAMINATION: BP 124/73 Pulse 60 Ht 171.5 cm (5' 7.52) Wt 134.8 kg (297 lb 3.2 oz) SpO2 96% BMI 45.83 kg/m2 General: Obese, Well appearing, in no acute distress. Skin: No clubbing, no cyanosis. Well-healed midline sternotomy scar. Eyes: Extra ocular movements intact Oropharynx: Teeth in good repair. Neck: No jugular venous distention, no carotid bruits, carotids have a normal upstroke, no palpable thyromegaly. Lungs: Clear to auscultation bilaterally, no wheezing or rhonchi. Heart: Regular rhythm, PMI not displaced, S1, S2 normal, no S3, no S4, no heaves, no rub and no murmur. Abdomen: Soft, nontender, bowel sounds normal, no palpable organomegaly, no bruits. Extremities: No peripheral edema . Grade 2/4 distal pulses bilaterally. Neuro: Oriented to person, place and time, alert, cooperative, gait coordinated. CARDIOVASCULAR MEDICINE TESTING: Electrocardiogram: Normal sinus rhythm, complete left bundle branch block Echocardiogram: - Technically difficult exam due to body habitus. - Exam indication: S/P subaortic membrane resection - The left ventricle is normal in size. There is mild upper septal left ventricular hypertrophy. Left ventricular systolic function is normal. EF = 68 ? 5% (2D biplane) Left ventricular diastolic function was not evaluated. - The right ventricle is normal in size. Right ventricular systolic function is normal. - The left atrial cavity is mildly dilated. - Mild 1+ aortic regurgitation. - At rest, LVOT gradient is 16mmhg (HR 55 bpm). There is no change with valsalva. ? - Exam was compared with the prior echocardiographic exam performed on 06/21/2017. No change. I have personally reviewed the Electrocardiogram and Echocardiogram. IMPRESSION: Ms. Rasmussen is a 22 year old female who is doing well after repeat cardiac surgery with resection of a subaortic membrane. Her echocardiogram today shows no significant gradient across left ventricular outflow tract and mild aortic regurgitation. PLAN AND RECOMMENDATIONS: 1. OK to drive. 2. OK to return to work. 3. Do not lift more than 25 pounds for now. 4. Okay to stop metoprolol. 5. Encourage smoking cessation. She will follow-up with Dr Haider. I personally interviewed, confirmed and edited the above information as obtained by others. CONTACT INFORMATION: Umberto Marie MD August 22, 2017 4:01 PM CBC Collected: 08/22/2017 Status: F Source: [place] 12:24 PM [facility] REPOSITORY TYPE CODE TESTS RESULT OUT OF REFERENCE UNITS RANGE LAB WBC 3.70-11.00 k/uL WBC 10.32 LAB RBC 3.90-5.20 m/uL RBC High 5.21 LAB HGB 11.5-15.5 g/dL Hemoglobin 12.3 LAB HCT 36.0-46.0 % Hematocrit 40.6 LAB MCV 80.0-100.0 fL Low MCV 77.9 LAB MCH 26.0-34.0 pG Low MCH 23.6 LAB MCHC 30.5-36.0 g/dL Low MCHC 30.3 LAB RDWCV 11.5-15.0 % RDW-CV High 16.2 LAB PLTCT 150-400 k/uL Platelet Count 370 LAB MPV 9.0-12.7 fL MPV 9.8 LAB ABSNUC <0.01 k/uL Absolute nRBC <0.01 Performed By: #### CBC, BMP, LIPB #### [facility] [address] [place], [place] [address] BASIC METABOLIC PANL Collected: 08/22/2017 Status: F Source: [place] 12:24 PM [facility] REPOSITORY TYPE CODE TESTS RESULT OUT OF REFERENCE UNITS RANGE LAB GLU 74-99 mg/dL Glucose 76 Result Comment: The [place] Diabetes [employer] (ADA) provides guidance for cutoff values for fasting glucose and random glucose. The ADA defines fasting as no caloric intake for at least 8 hours. Fas ting plasma glucose results between 100 to 125 mg/dL indicate increased risk for diabetes (prediabetes). Fasting plasma glucose results greater than or equal to 126 mg/dL meet the criteria for diagnosis of diabetes. In the absence of unequivocal hyperglycemia, results should be confirmed by repeat testing. In a patient with classic symptoms of hyperglycemia or hyperglycemic crisis, random plasma glucose results greater than or equal to 200 mg/dL meet the criteria for diagnosis of diabetes. Reference: Standards of Medical Care in Diabetes 2016, [place] [employer]. Diabetes Care. 2016.39(Suppl 1). LAB BUN 7-21 mg/dL Low BUN 6 LAB CRET 0.58-0.96 mg/dL Creatinine 0.63 LAB NA 136-144 mmol/L Sodium 142 LAB K 3.7-5.1 mmol/L Potassium 4.2 LAB CL 97-105 mmol/L Chloride High 106 LAB CO2 22-30 mmol/L CO2 22 LAB AGAP 9-18 mmol/L Anion Gap 14 LAB CA 8.5-10.2 mg/dL Calcium, Total 9.6 LAB GFRAA eGFR- Amer. >60 LAB GFRNAA . eGFR-All Other Races >60 Result Comment: eGFR (Estimated GFR) Units of measure: mL/min/1.73 meters squared eGFR is derived from the reexpressed MDRD Study equation using the following parameters: serum creatinine, age, gender and race. The creatinine assay has been calibrated to be traceable to IDMS. An eGFR <60 mL/min/1.73m2 for >3 months is consistent with chronic kidney disease. Refer to KDOQI guidelines for clinical interpretation. In patients with unstable renal function, e.g. those with acute kidney injury, the eGFR may not accurately reflect actual GFR. Performed By: #### CBC, BMP, LIPB #### [facility] [address] [place], [place] [address] LIPID PANEL, BASIC Collected: 08/22/2017 Status: F Source: [place] 12:24 PM [facility] REPOSITORY TYPE CODE TESTS RESULT OUT OF REFERENCE UNITS RANGE LAB CHOL <200 mg/dL Cholesterol 141 Result Comment: <200 mg/dL, Desirable 200-239 mg/dL, Borderline high >239 mg/dL, High LAB TRIGLY <150 mg/dL Triglyceride 138 Result Comment: <150 mg/dL, Normal 150-199 mg/dL, Borderline high 200-499 mg/dL, High >499 mg/dL, Very high LAB HDL >39 mg/dL HDL-Cholesterol Low 27 Result Comment: 40-59 mg/dL, Acceptable >59 mg/dL, High: Negative risk factor for coronary heart disease <40 mg/dL, Low: Positive risk factor for coronary heart disease LAB LDL <100 mg/dL LDL-Cholesterol 86 Result Comment: <100 mg/dL, Optimal 100-129 mg/dL, Near optimal/above optimal 130-159 mg/dL, Borderline high 160-189 mg/dL, High >189 mg/dL, Very high Secondary prevention optimal LDL Cholesterol levels are recommended to be < 70 mg/dL LAB NONHDL <130 mg/dL Non HDL Cholesterol 114 Result Comment: <130 mg/dL, Optimal 130-159 mg/dL, Near optimal/above optimal 160-189 mg/dL, Borderline high 190-219 mg/dL, High >219 mg/dL, Very high Secondary prevention optimal non HDL Cholesterol levels are recommended to be < 100 mg/dL LAB FT hrs Fasting Time 0 LAB VLDL <30 mg/dL VLDL Cholesterol 28 LAB TCHDL <5.10 High TC:HDL Ratio 5.22 LAB LDLHDL <2.54 High LDL:HDL Ratio 3.19 Result Comment: Reference: 1. National Cholesterol Education Program ATP III Guideline At-A-Glance Quick Desk Reference: National Heart, Lung, and [facility] [place]. National Institutes of Health. 2001: NIH Publication No. 01-3305. 2. An International Atherosclerosis Society position paper: global recommendations for the management of dyslipidemia: executive summary, Atherosclerosis. 2014: 232(2):410-413. Cut Points from the [facility]'s Prevalence Study for ages 20 to 24 years can be located in the following reference: Expert Panel on Integrated Guidelines for Cardiovascular Health and Risk R eduction in Children and Adolescents: National Heart, Lung and [facility] [place]. Pediatrics. 2011:128(Suppl 5):C001-332. Performed By: #### CBC, BMP, LIPB #### [facility] [address] [place], [place] [address] PROGRESS Observed: 08/05/2017 Status: COMPLETED Source: [place] 11:38 AM [facility] [place] REPOSITORY HNO ID: [id number] Author: Ibis (John) Anca Service: (none) Author Type: Nurse Practitioner Type: Progress Notes Filed: 08/05/2017 12:05 PM Note Text: 08/05/2017 Patient presents with: Rash SUBJECTIVE: This is a 22 year old that is here today for rash that itches on right thigh/gluteal crease right upper arm, and left lower arm near antecubital fold. She noticed these yesterday. Denies any changes to products. 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 She states that she feels that this looks similar. She states that she has had rashes similar to this before, but considered them a heat rash that resolved that day. She has not used any creams or taken any medications for relief. She is also concerned that she may be . Her last menstrual cycle was from 07/18-07/21. They are irregular and she can have more than one in a month at times. She feels that she may be due to the fact that she has noticed breast soreness and morning sickness that is relieved with eating first thing when she wakes up. She states that they are not necessarily planning to become , but not preventing it and would be ok if it does happen. Would like urine test today. She is following up with cardiology and surgery in 2 weeks for the clear to go back to work. PAST MEDICAL HISTORY Diagnosis Date - Aortic stenosis s/p repair of a PDA and subvalvular aortic stenosis. Sees Dr. Haider and Dr. Marie - Asthma - Morbid obesity (HCC) - PCOS (polycystic ovarian syndrome) elevated testosterone and elevated insulin - PDA (patent ductus arteriosus) s/p repair age 10 - Tobacco use ALLERGIES Penicillins; Tetanus And Diphtheria Toxoids, Adsorbed, Adult MEDICATIONS Current Outpatient Prescriptions: acetaminophen (TYLENOL) 325 mg tablet Take 2 tablets by mouth every 6 hours as needed for Pain or Fever. metoprolol tartrate, short acting, (LOPRESSOR) 25 mg tablet Take 2 tablets by mouth twice daily. therapeutic multivitamin (THERA VITAMIN) tablet Take 1 tablet by mouth daily with breakfast. albuterol HFA (VENTOLIN HFA) 90 mcg/actuation inhaler Inhale 2 Puffs as instructed every 4 hours as needed. buPROPion SR (WELLBUTRIN SR) 150 mg 12 hr tablet Take 1 tablet by mouth twice daily. aspirin 81 mg chewable tablet Take 1 tablet by mouth once daily. Blood Pressure Test Kit-Large (QUICK RESPONSE BP MONITOR) kit Bp check weekly and as needed. (R03.0) Elevated blood pressure reading without diagnosis of hypertension No current facility-administered medications for this visit. Medications and allergies reviewed by this provider. SOCIAL HISTORY Social History Marital status: Single Spouse name: Years of education: Number of children: Occupational History Occupation Employer Comment Unemployed Social History Main Topics Smoking status: Current Every Day Smoker Packs/day: 0.50 Years: 2.00 Types: Cigarettes Smokeless status: Never Used Alcohol use: No Drug use: No Sexual activity: Yes Partners with: Male REVIEW OF SYSTEMS GENERAL: No weight loss, malaise or fevers HEENT: Negative for frequent or significant headaches, No changes in hearing or vision, no nose bleeds or other nasal problems, No nasal bleeding, congestion or rhinorrhea NECK: Negative for lumps, goiter, pain and significant neck swelling RESPIRATORY: Negative for cough, hemoptysis, wheezing, COPD, dyspnea or shortness of breath CARDIOVASCULAR: Negative for chest pain, leg swelling, hypertension, CHF or palpitations GI: No nausea, vomiting, or diarrhea TEST INSPECTION ENGINEER: SEE HPI SKIN: See HPI OBJECTIVE: BP 110/62 (BP Site: Left Arm, BP Position: Sitting, BP Cuff Size: Large Adult) Pulse 71 Temp 36.7 ?C (98.1 ?F) (Right Tympanic) Resp 16 Wt (!) 137.2 kg (302 lb 6.4 oz) LMP 07/18/2017 (Exact Date) SpO2 98% BMI 46.66 kg/m2. Vital signs reviewed by this provider. PHYSICAL EXAMINATION: General appearance: Well appearing, alert, in no acute distress, well-hydrated, well nourished., Morbidly obese Skin: raised erythematous rash to right gluteal fold/upper lateral thigh, right upper medial arm, and left lower arm just below the antecubital fold. No drainage, swelling, heat, or pain with palpation. Lungs: Lungs clear to auscultation. No wheezing, rhonchi, rales Heart: RRR without murmur, gallop, or rubs. No ectopy ASSESSMENT/PLAN: 1. Rash - ICD9: 782.1, ICD10: R21 (primary diagnosis) - Likely contact dermatitis - TRIAMCINOLONE ACETONIDE 0.1 % TOPICAL CREAM - Discussed if worsening with the steroid cream should call and can send in script for antifungal cream - discussed no need to continue cream after resolution of rash and discouraged use longer than 1 week - Educated on using sparingly to affected areas 2. Breast tenderness in female - ICD9: 611.71, ICD10: N64.4 - Urine negative today, but discussed that this cannot fully determine based on LMP- Encouraged to start taking vitamin now if not preventing against . - Encouraged her to talk with parking manager and surgeon regarding this potential. - HCG QUAL UR B/O 3. Morning sickness - ICD9: 643.00, ICD10: O21.0 - see above - HCG QUAL UR B/O Ibis March CNP CNOV Observed: 08/05/2017 Status: COMPLETED Source: [place] 11:00 AM [facility] REPOSITORY [facility] VALERYKEILY ([id number]) 1995 F Date Time Provider Department 08/05/17 11:00 AM IBIS MARCH (JOHN) JAMES During your visit today, we recorded the following information about you: Temperature Pulse Respiration Blood pressure 98.1 degrees 71/minute 16/minute 110/62 Weight 137.2 kg Ibis March CNP 08/05/2017 12:05 PM Signed 08/05/2017 Patient presents with: Rash SUBJECTIVE: This is a 22 year old that is here today for rash that itches on right thigh/gluteal crease right upper arm, and left lower arm near antecubital fold. She noticed these yesterday. Denies any changes to products. 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 She states that she feels that this looks similar. She states that she has had rashes similar to this before, but considered them a heat rash that resolved that day. She has not used any creams or taken any medications for relief. She is also concerned that she may be . Her last menstrual cycle was from 07/18-07/21. They are irregular and she can have more than one in a month at times. She feels that she may be due to the fact that she has noticed breast soreness and morning sickness that is relieved with eating first thing when she wakes up. She states that they are not necessarily planning to become , but not preventing it and would be ok if it does happen. Would like urine test today. She is following up with cardiology and surgery in 2 weeks for the clear to go back to work. PAST MEDICAL HISTORY Diagnosis Date - Aortic stenosis s/p repair of a PDA and subvalvular aortic stenosis. Sees Dr. Haider and Dr. Marie - Asthma - Morbid obesity (HCC) - PCOS (polycystic ovarian syndrome) elevated testosterone and elevated insulin - PDA (patent ductus arteriosus) s/p repair age 10 - Tobacco use ALLERGIES Penicillins; Tetanus And Diphtheria Toxoids, Adsorbed, Adult MEDICATIONS Current Outpatient Prescriptions: acetaminophen (TYLENOL) 325 mg tablet Take 2 tablets by mouth every 6 hours as needed for Pain or Fever. metoprolol tartrate, short acting, (LOPRESSOR) 25 mg tablet Take 2 tablets by mouth twice daily. therapeutic multivitamin (THERA VITAMIN) tablet Take 1 tablet by mouth daily with breakfast. albuterol HFA (VENTOLIN HFA) 90 mcg/actuation inhaler Inhale 2 Puffs as instructed every 4 hours as needed. buPROPion SR (WELLBUTRIN SR) 150 mg 12 hr tablet Take 1 tablet by mouth twice daily. aspirin 81 mg chewable tablet Take 1 tablet by mouth once daily. Blood Pressure Test Kit-Large (QUICK RESPONSE BP MONITOR) kit Bp check weekly and as needed. (R03.0) Elevated blood pressure reading without diagnosis of hypertension No current facility-administered medications for this visit. Medications and allergies reviewed by this provider. SOCIAL HISTORY Social History Marital status: Single Spouse name: Years of education: Number of children: Occupational History Occupation Employer Comment Unemployed Social History Main Topics Smoking status: Current Every Day Smoker Packs/day: 0.50 Years: 2.00 Types: Cigarettes Smokeless status: Never Used Alcohol use: No Drug use: No Sexual activity: Yes Partners with: Male REVIEW OF SYSTEMS GENERAL: No weight loss, malaise or fevers HEENT: Negative for frequent or significant headaches, No changes in hearing or vision, no nose bleeds or other nasal problems, No nasal bleeding, congestion or rhinorrhea NECK: Negative for lumps, goiter, pain and significant neck swelling RESPIRATORY: Negative for cough, hemoptysis, wheezing, COPD, dyspnea or shortness of breath CARDIOVASCULAR: Negative for chest pain, leg swelling, hypertension, CHF or palpitations GI: No nausea, vomiting, or diarrhea TEST INSPECTION ENGINEER: SEE HPI SKIN: See HPI OBJECTIVE: BP 110/62 (BP Site: Left Arm, BP Position: Sitting, BP Cuff Size: Large Adult) Pulse 71 Temp 36.7 ?C (98.1 ?F) (Right Tympanic) Resp 16 Wt (!) 137.2 kg (302 lb 6.4 oz) LMP 07/18/2017 (Exact Date) SpO2 98% BMI 46.66 kg/m2. Vital signs reviewed by this provider. PHYSICAL EXAMINATION: General appearance: Well appearing, alert, in no acute distress, well-hydrated, well nourished., Morbidly obese Skin: raised erythematous rash to right gluteal fold/upper lateral thigh, right upper medial arm, and left lower arm just below the antecubital fold. No drainage, swelling, heat, or pain with palpation. Lungs: Lungs clear to auscultation. No wheezing, rhonchi, rales Heart: RRR without murmur, gallop, or rubs. No ectopy ASSESSMENT/PLAN: 1. Rash - ICD9: 782.1, ICD10: R21 (primary diagnosis) - Likely contact dermatitis - TRIAMCINOLONE ACETONIDE 0.1 % TOPICAL CREAM - Discussed if worsening with the steroid cream should call and can send in script for antifungal cream - discussed no need to continue cream after resolution of rash and discouraged use longer than 1 week - Educated on using sparingly to affected areas 2. Breast tenderness in female - ICD9: 611.71, ICD10: N64.4 - Urine negative today, but discussed that this cannot fully determine based on LMP- Encouraged to start taking vitamin now if not preventing against . - Encouraged her to talk with parking manager and surgeon regarding this potential. - HCG QUAL UR B/O 3. Morning sickness - ICD9: 643.00, ICD10: O21.0 - see above - HCG QUAL UR B/O Ibis March, FLOUR TESTER Referring Provider: SELF [[id number]] Allergies As of Date: 08/05/2017 Noted Allergy Reaction PENICILLINS 11/28/2014 4 - Hives TETANUS AND DIPHTHERIA TOXOIDS, A*04/14/2017 2 - Rash Comments: Local erythema and swelling in the affected arm. Date Reviewed: 08/05/2017 Reviewed by: Grace Gomez Ma - Fully Assessed Reason for Visit: Rash [1087] Primary Visit Diagnosis:Rash [R21] Other Visit Diagnoses:Breast tenderness in female [N64.4] Morning sickness [O21.0] Order(s):triamcinolone acetonide (KENALOG) 0.1 % creamApply 1 application to affected area three times daily. Apply sparingly to area for rash/itching.Disp: 1 TubeRfl: 0 HCG QUAL UR B/O [[id number]] Order #: [id number] Prescriptions as of 08/05/2017 Sig: ACETAMINOPHEN 325 MG TABLET Take 2 tablets by mouth every* METOPROLOL TARTRATE 25 MG TAB* Take 2 tablets by mouth twice* THERAPEUTIC MULTIVITAMIN TABL* Take 1 tablet by mouth daily * ALBUTEROL SULFATE HFA 90 MCG/* Inhale 2 Puffs as instructed * BUPROPION HCL SR 150 MG TABLE* Take 1 tablet by mouth twice * TRIAMCINOLONE ACETONIDE 0.1 %* Apply 1 application to affect* ASPIRIN 81 MG CHEWABLE TABLET Take 1 tablet by mouth once d* BLOOD PRESSURE TEST KIT-LARGE* Bp check weekly and as needed* Problem List As Of Date 08/05/2017 Noted Resolved Heart valve stenosis [I38] INVALID FOR* Obesity, Class III, BMI 40-49.9 (morbid obesity*INVALID FOR* Hyperinsulinemia [E16.1] INVALID FOR* Adjustment disorder with mixed anxiety and depr*INVALID FOR* Priority: C More... Seasonal allergic rhinitis due to pollen [J30.1]INVALID FOR* Morbid obesity (HCC) [E66.01] Asthma [J45.909] Priority: B More... Aortic stenosis [I35.0] Priority: A More... PCOS (polycystic ovarian syndrome) [E28.2] More... Pre-op testing [Z01.818] INVALID FOR* More... Discharge planning issues [Z02.9] INVALID FOR* Priority: D More... On mechanically assisted ventilation (HCC) [Z99*INVALID FOR*06/18/2017 Priority: B More... Acute post-operative pain [G89.18] INVALID FOR* Priority: C More... Atelectasis [J98.11] INVALID FOR* Priority: B More... Hypovolemia [E86.1] INVALID FOR*06/18/2017 Priority: F More... Essential hypertension [I10] INVALID FOR* Priority: C More... Transition of care performed with sharing of cl*INVALID FOR* Priority: Very Severe More... Nicotine use disorder, F17.2 [F17.200] INVALID FOR* Prescriptions ordered this encounter Disp Refills Start End TRIAMCINOLONE ACETONIDE 0.1 % TOPICA* 1 Tu* 0 08/05/2017 Route: TOPICAL Sig: Apply 1 application to affected area three times daily. Apply sparingly to area for rash/itching. Disposition: Return if symptoms worsen or fail to improve. Follow-up and Disposition History Recorded Encounter Status:Closed by IBIS MARCH on 08/05/17 12 LEAD ELECTROCARDIOGRAM Observed: 07/22/2017 Status: F Source: [place] 1:07 PM [facility] REPOSITORY [facility] Cardiovascular Services [address] [place] [address] 12 Lead EKG 07/18/17 1539 MR#: [id number] Acct: [id number] Name: KEILY RASMUSSEN Rep #: [id number] : 1995 22 From: Sterling Wells MD Attending Dr: Status: DEP ER Ordering Dr: Aristeo Moore MD Date: 07/18/17 Location: ED Sex: F C Admitted: Test Reason : CP Blood Pressure : / mmHG Vent. Rate : 072 BPM Atrial Rate : 072 BPM P-R Int : 154 ms QRS Dur : 140 ms QT Int : 420 ms P-R-T Axes : 020 003 135 degrees QTc Int : 459 ms Normal sinus rhythm Left bundle branch block Abnormal ECG Confirmed by STERLING WELLS ([id number]), food editor MERVIN RODRIGUEZ ([id number]) on 07/22/2017 1:07:07 PM Referred By: JESUS Confirmed By:STERLING WELLS 07/22/17 1307 Date Sterling Wells MD CC: Ken Barnes MD; ARISTEO MOORE MD Signed PROGRESS Observed: 07/21/2017 Status: COMPLETED Source: [place] 9:24 AM [facility] REPOSITORY HNO ID: [id number] Author: Ibis March Service: (none) Author Type: Nurse Practitioner Type: Progress Notes Filed: 07/21/2017 10:00 AM Note Text: 07/21/2017 Patient presents with: ER F/U SUBJECTIVE: This is a 22 year old that is here today for Er follow up influenza. She was seen at [facility] 07/18/17 for chest pain. She is s/p open heart surgery a month ago. Part of the pain that she was and is feeling is at the incision site. She is also having right sided chest pressure that she has had since surgery with occasional sharp pains. Pressing on the chest can sometimes cause the pain. She rates it as a 2-3/10. She was told to expect this with the surgery, so she has not called her surgeon or parking manager about it. She states that it does not interfere with her daily function. She is mainly concerned about wanting to make sure the incision is healing well. She also has had a cough that is bringing up brown/yellow sputum. She had a fever last on Friday of around 100, no fever of chills since. She is having some SOB with exertion, none at rest. She was diagnosed with pneumonia after CT angiogram that was not visualized on CXR at [facility] and prescribed Levaquin, but she has not yet started the script stating that she will get it this morning. She was also influenza B positive and prescribed tamiflu, but has not yet started that either. Ears are starting to bother her today as well. PAST MEDICAL HISTORY Diagnosis Date - Aortic stenosis s/p repair of a PDA and subvalvular aortic stenosis. Sees Dr. Haider and Dr. Marie - Asthma - Morbid obesity (HCC) - PCOS (polycystic ovarian syndrome) elevated testosterone and elevated insulin - PDA (patent ductus arteriosus) s/p repair age 10 - Tobacco use ALLERGIES Penicillins; Tetanus And Diphtheria Toxoids, Adsorbed, Adult MEDICATIONS Current Outpatient Prescriptions: oxyCODONE IR (ROXICODONE) 5 mg immediate release tablet Take 1 tablet by mouth every 6 hours as needed for Pain for up to 7 days.Earliest Fill Date: 07/14/17 acetaminophen (TYLENOL) 325 mg tablet Take 2 tablets by mouth every 6 hours as needed for Pain or Fever. metoprolol tartrate, short acting, (LOPRESSOR) 25 mg tablet Take 2 tablets by mouth twice daily. therapeutic multivitamin (THERA VITAMIN) tablet Take 1 tablet by mouth daily with breakfast. albuterol HFA (VENTOLIN HFA) 90 mcg/actuation inhaler Inhale 2 Puffs as instructed every 4 hours as needed. buPROPion SR (WELLBUTRIN SR) 150 mg 12 hr tablet Take 1 tablet by mouth twice daily. Blood Pressure Test Kit-Large (QUICK RESPONSE BP MONITOR) kit Bp check weekly and as needed. (R03.0) Elevated blood pressure reading without diagnosis of hypertension aspirin 81 mg chewable tablet Take 1 tablet by mouth once daily. pantoprazole DR (PROTONIX) 20 mg tablet Take 1 tablet by mouth DAILY (6 AM) for 14 days. benzonatate (TESSALON PERLE) 100 mg capsule Take 100 mg by mouth three times daily as needed. No current facility-administered medications for this visit. Medications and allergies reviewed by this provider. SOCIAL HISTORY Social History Marital status: Single Spouse name: Years of education: Number of children: Occupational History Occupation Employer Comment Unemployed Social History Main Topics Smoking status: Current Every Day Smoker Packs/day: 0.50 Years: 2.00 Types: Cigarettes Smokeless status: Never Used Alcohol use: No Drug use: No Sexual activity: Yes Partners with: Male REVIEW OF SYSTEMS See HPI OBJECTIVE: BP 109/67 (BP Site: Left Arm, BP Position: Sitting, BP Cuff Size: Large Adult) Pulse 62 Temp 36.5 ?C (97.7 ?F) (Left Tympanic) Resp 16 Wt 134.9 kg (297 lb 6.4 oz) LMP 07/18/2017 (Exact Date) SpO2 98% BMI 45.89 kg/m2. Vital signs reviewed by this provider. PHYSICAL EXAMINATION: General appearance: Well appearing, alert, in no acute distress, well-hydrated, well nourished., Obese Skin: Skin color, texture, turgor normal, no suspicious rashes or lesions, bruising to left forearm- pt states IV site. Sternal incision healing well. Slightly tender to touch at the base. No drainage, no heat, no erythema. Head: Normocephalic, no masses, lesions, tenderness or abnormalities Eyes: Anicteric sclera. Pupils are equally round and reactive to light. Ears: External ears normal, canals clear, Positive findings: R TM: erythematous, L TM: erythematous Nose/Sinuses: Nares normal, septum midline, mucosa normal, no drainage or sinus tenderness Oropharynx: Lips, mucosa, and tongue normal, teeth and gums normal, oropharynx normal and Positive findings: tonsillar hypertrophy 2+ (baseline per pt) Neck: Supple, no adenopathy; thyroid symmetric, normal size Lungs: Lungs clear to auscultation. No wheezing, rhonchi, rales Heart: RRR without murmur, gallop, or rubs. No ectopy Extremities: No deformities, edema, skin discoloration, clubbing or cyanosis. Good capillary refill. , Pulses: 2+ ASSESSMENT/PLAN: 1. Hospital discharge follow-up - ICD9: V67.59, ICD10: Z09 (primary diagnosis) - pneumonia and influenza B positive. - discussed in detail the importance of starting the Levaquin previously prescribed especially related to her recent cardiac surgery - Discussed that it is likely that the Tamiflu will not provide much relief especially since she is starting to feel better in the way of not having a fever or chills any longer and the fact that she is now day 5 into the symptoms - encouraged to follow up with cardiology and surgeon regarding the pain. She states that she has a scheduled appointment with them on this coming Friday. Encouraged to call office and make aware of symptoms to see if they have any reason to want to see her sooner - discussed red flags and when to go back to the ER. 2. Incisional irritation, initial encounter - ICD9: 998.89, ICD10: T81.89XA - no evidence of infection - see above 3. Chest discomfort - ICD9: 786.59, ICD10: R07.89 Atypical chest pain, symptoms are not consistent with cardiac ischemia due to nonexertional nature of symptom, pleuritic nature of pain and ability to recreate The pain with palpation possible etiology include chest wall pain related to surgery - encouraged to follow up with cardiology and surgeon 4. Bacterial pneumonia - ICD9: 482.9, ICD10: J15.9 - see above 5. Influenza B - ICD9: 487.1, ICD10: J10.1 - see above Ibis March CNP EMERGENCY DEPARTMENT Observed: 07/18/2017 Status: F Source: [place] SUMMARY 9:32 PM [facility] REPOSITORY [facility] Medical Records Department [address] [place] [address] Emergency Department Summary 07/18/172024 MR#: [id number] Acct: [id number] Name: KEILY RASMUSSEN Rep #: [id number] : 1995 22 From: Aristeo Moore MD PCP: Ken Barnes MD Status: REG ER - ER Visit Summary Date of Service: 07/18/17 Chief Complaint: Chest pain History of Present Illness: The patient is a 22 F with chest pain that started gradually yesterday, worse today. She has 3 distinct areas of discomfort, all of which are unique. She has had open heart surgery, has no idea what they did at [facility], just to get a piece of tissue and a piece of muscle. She states that her incision has been sore since then but before she started getting sick a few days ago, she has been recovering very well. She also has some nonpleuritic pressure on the right side and some stabbing pleuritic discomfort throughout the left chest. She has been having a cough productive of occasional brown sputum. She denies it being dark yellow, or bloody. It is brown. She had a fever 3 days ago but none since then. She denies having any dyspnea or palpitations. No leg pain or swelling. Physical Examination: Well-appearing in no distress. Temperature is 99.8 otherwise her vital signs are normal her pulse ox is 96% on room air. Initial blood pressure 156/92, on recheck it is 120/73 without any treatment. Lungs are clear to auscultation throughout, her left chest is all very tender, her incision is tender, but does not show any signs of infection or dehiscence and appears to be healing well. Right chest is nontender. Equal breath sounds bilaterally, trachea midline. Abdomen benign. No calf pain or tenderness, no pedal edema. Equal bilateral radial pulses. Test Results: Chest x-ray unremarkable. Labs unremarkable except for influenza which is positive for influenza B. Troponin negative. CT angiography negative for PE, but shows a right lower lobe infiltrate that appears to be of infectious etiology, which was not seen on chest x-ray according to radiology. Emergency Department Course and Treatment: She was given IV fluids, Toradol, and started on Tamiflu and Levaquin. Suspect a lot of her chest discomfort is chest wall pain. There is a delay in ordering tests and getting results because I was awaiting details from [facility] to see what she had done. 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 It does not appear that any of this has anything to do with her symptoms at this time. Her vital signs are excellent, she is satting well on room air. I think she can be discharged home. She was advised to follow-up as scheduled, with her cardiac follow-up appointments and PCP after the weekend. Treatment Plan: Tamiflu, Levaquin, supportive care, close outpt f/u Disposition: Discharge home Impression: Influenza Healthcare associated pneumonia Chest pain, unspecified Recent open heart surgery This note was generated with Cleverbug dictation software. It may contain incorrect words, spelling, and punctuation that were not noted in review of the chart prior to signing ED Disposition - Plan for ED Patient: Disposition: Home or Assisted Living Chief Complaint: Chest Other Instructions: ED Flu, ED Pneumonia Adult Prescriptions: Levofloxacin [Levaquin] 750 mg PO DAILY #5 tab Oseltamivir Phosphate [Tamiflu] 75 mg PO BID #10 cap Referrals: Ken Barnes MD [Primary Care Provider] - 3-5 Days What to do if you have Problems For any increased pain, shortness of breath, bleeding, nausea or vomiting, chest pain, or any unexpected problems, contact your Primary Care Provider. Call [facility] ([phone]) or report to the closest Emergency Room. Call 911 if necessary. 07/18/172131 <Electronically signed by Aristeo Moore MD> Date Aristeo Moore MD Cosigner Signature (If Indicated): Date CC: Ken Barnes MD Observed: 07/18/2017 Status: C Source: [place] INFLUENZA A+B (RAPID 6:50 PM [facility]) REPOSITORY Order Date: 07/18/17 FLU A/B Rapid Negative test results should be confirmed by culture. Order Rapid Viral Culture for Influenzae A+B ([id number]) if clinically indicated. CALLED TO Mario MENCHACA 07/18/17 AT 1940 BY [employer] Influenza Ag, Direct POSITIVE for the presence of INFLUENZA B Antigen only ORGANISM 1: INFLUENZAE B Performed By: #### M101.0101 #### [facility] [address] [place], [address] CBC W/DIFF, AUTOMATED Collected: 07/18/2017 Status: F Source: [place] 6:45 PM [facility] REPOSITORY TYPE CODE TESTS RESULT OUT OF RANGE REFERENCE UNITS LAB L100.1000 4.4-11.0 K/mm3 Low WBC 3.9 LAB L100.1200 4.2-5.4 M/mm3 Normal RBC 4.98 LAB L100.1300 12.0-15.0 g/dl Low HGB 11.8 LAB L100.1400 37-47 % Normal HCT 38.7 LAB L100.1500 81-99 fL Low MCV 77.7 LAB L100.1600 27.0-32.0 pg Low MCH 23.7 LAB L100.1700 32-36 g/gl Low MCHC 30.5 LAB L100.1810 11.6-14.6 % High RDW CV 15.6 LAB L100.1820 35.1-43.9 fl High RDW SD 44.0 LAB L100.1900 150-450 K/mm3 Normal PLT 225 LAB L100.2000 6.2-12.0 fl Normal MPV 9.4 LAB L100.2100 47-70 % Low NEUT% 41.8 LAB L100.2200 19-41 % Normal LY% 39.7 LAB L100.2300 0-10 % High MONO% 15.6 LAB L100.2400 0-5 % Normal EO% 2.1 LAB L100.2500 0-1 % Normal BASO% 0.5 LAB L100.2550 0.0-0.9 % Normal IM GRAN % 0.300 Result Comment: IG% - Immature Granulocytes (promyelocytes, myelocytes and metamyelocytes) > 1% indicates that a LEFT SHIFT is Present. LAB L100.2620 2.0-7.7 X10 3/uL Low Absolute Neut 1.6 LAB L100.2720 0.83-4.51 X10 3/ul Normal Absolute Lymph 1.53 Performed By: #### L100.0100 #### [facility] [address] [place], [place], [address] BASIC METABOLIC Collected: 07/18/2017 Status: F Source: [place] PROFILE (BMP) 6:45 PM [facility] REPOSITORY Order Comment: 'TROP' Serial specimen #1, #2, #3, or #4: 1 TYPE CODE TESTS RESULT OUT OF RANGE REFERENCE UNITS LAB L501.0100 74-106 mg/dL Normal GLU 75 Result Comment: Please note revised GLUCOSE reference range effective 2017. LAB L501.1000 7-18 mg/dL Low BUN 6 LAB L501.1100 0.55-1.02 mg/dL Normal CREAT,SERUM 0.57 Result Comment: The validity of the calculated GFR AND GFRAA in patients over 70 years has not been determined. Clinical correlation is essential. LAB L501.1110 >60 mL/min Normal EST GFR 144 Result Comment: Non- GFR Calc LAB L501.1115 >60 mL/min Normal EST GFR - AA 175 Result Comment: GFR Calc LAB L501.1255 ml/min Normal Estimated CRCL 153.10 LAB L501.1300 10-20 RATIO BUN/CRE Normal 10.6 LAB L501.2200 8.5-10 mg/dL .1 CA Normal 8.6 LAB L501.5300 136-14 mmol/L 5 NA Normal 139 LAB L501.5600 3.5-5. mmol/L 1 K Normal 4.5 Result Comment: Moderate Hemolysis, Result may be falsely increased. LAB L501.5900 98-107 mmol/L High CL 108 LAB L501.6100 21.0-32.0 mmol/L Normal CO2 25.0 LAB L501.6200 5-15 Normal 6 GAP Performed By: #### L500.2500, L501.4010 #### [facility] [address], [place], [id number] TROPONIN-I Collected: 07/18/2017 Status: F Source: [place] 6:45 PM [facility] REPOSITORY Order Comment: 'TROP' Serial specimen #1, #2, #3, or #4: 1 TYPE CODE TESTS RESULT OUT OF RANGE REFERENCE UNITS LAB L501.4010 <0.06 ng/mL Normal < 0.02 TROPONIN-I Result Comment: TROPONIN-I EXPECTED VALUES <0.05 NEGATIVE 0.06 - 0.59 AT RISK OF CO > OR = 0.60 SUGGEST CO Performed By: #### L500.2500, L501.4010 #### [facility] [address] [place], [place], [address] CTA CHEST W/WO Observed: 07/18/2017 Status: F Source: [place] CONTRAST 6:11 PM [facility] REPOSITORY [facility] Imaging Services [address] [place] [address] CTA Chest W/WO Contrast MR#: [id number] Acct: [id number] Name: KEILY RASMUSSEN Rep #: [id number] : 1995 F 22 From: Tulio Diamond MD PCP: Ken Barnes MD Status: REG ER Study: CTA Chest W/WO Contrast Date of Exam: 07/18/17 Exam# [id number] Ordering Dr: Aristeo Moore MD STUDY: CTA CHEST REASON FOR EXAM: Female, 22 years old. Cough and chest pain RADIATION DOSAGE (If Supplied By Facility): CTDIvol = ( 30.02 ) mGy, DLP = ( 689.55 ) mGycm TECHNIQUE: The examination was performed with the intravenous administration of 100ML ml of Isovue 370 contrast material. Post-processing of the angiographic images was performed, with multiplanar reformation and 3D reconstruction. Individualized dose optimization techniques were used for this CT. COMPARISON: July 18, 2017 FINDINGS: Sternotomy wires are noted. Normal enhancement of the main pulmonary artery and right and left pulmonary arteries. Normal enhancement of the bilateral peripheral pulmonary arteries. There is no demonstrated pulmonary embolism. Normal thoracic aorta and visualized great vessels. There is no demonstrated aortic dissection. Normal heart and pericardium. Normal mediastinum. 1.8 cm right hilar node. Normal visualized trachea and bronchi. Small patchy groundglass opacities noted at the right lung base. Right infrahilar tree-in-bud type infiltrates. Normal pulmonary parenchyma. Normal pleura. Normal chest wall structures. Incompletely healed sternotomy. Normal visualized upper abdomen. CT/CTA Chest W/WO Contrast IMPRESSION: Right lower lobe infiltrate probably infectious in etiology. Incompletely healed sternotomy. Electronically Signed: Tulio Diamond MD at 21:23 EST , Service support , CC: Ken Barnes MD; ARISTEO MOORE MD Bridge Tender: Signed CHEST PA AND LATERAL Observed: 07/18/2017 Status: F Source: [place] 3:58 PM [facility] REPOSITORY [facility] Imaging Services [address] [place] [address] Chest PA and Lateral MR#: [id number] Acct: [id number] Name: KEILY RASMUSSEN Rep #: [id number] : 1995 F 22 From: Girish Christopher MD PCP: Ken Barnes MD Status: REG ER Study: Chest PA and Lateral Date of Exam: 07/18/17 Exam# [id number] Ordering Dr: Aristeo Moore MD STUDY: X-RAY CHEST REASON FOR EXAM: Female, 22 years old. Chest pain. Shortness TECHNIQUE: Frontal and lateral views of the chest. COMPARISON: May 15, 2017 FINDINGS: The lungs are clear and expanded. There is no demonstrated pleural abnormality. Sternotomy wires and a single clip projected over the mid mediastinum are stable. Normal mediastinum and gerald. Normal visualized pulmonary arteries. Normal visualized aortic arch and descending thoracic aorta. Normal visualized thoracic spine. Normal visualized ribs, clavicles, and shoulders. There is no demonstrated abnormality of the visualized soft tissue structures of the upper abdomen. RAD/Chest PA and Lateral IMPRESSION: Stable appearance of the chest with no new or acute pathology. Electronically Signed: Girish Christopher MD at 16:30 EST , Service support , CC: Ken Barnes MD; ARISTEO MOORE MD Bridge Tender: Signed CNCO Observed: 07/01/2017 Status: COMPLETED Source: [place] 12:00 AM [facility] REPOSITORY Letter Text [phone] Romero Streetson, MD PhD Retouching Operator Department of Thoracic AND Cardiovascular Surgery Professor, Cardiovascular Surgery Director, Congenital Heart Surgery Office: [phone] June 30, 2017 Jadiel Campbell MD via [facility] PATIENT NAME: KEILY RASMUSSEN [id number] Campbell: Our mutual patient Ms. Keily Rasmussen underwent reoperation re-resection of subaortic membrane on June 17, 2016. Her operative report is available in [facility] for your review. Please feel free to contact me if you have any questions or concerns. Sincerely, Alberto Umana MD PhD CNCO Observed: 07/01/2017 Status: COMPLETED Source: [place] 12:00 AM [facility] REPOSITORY Letter Text [id number] [id number] Alberto Umana MD PhD Retouching Operator Department of Thoracic AND Cardiovascular Surgery Professor, Cardiovascular Surgery Director, Congenital Heart Surgery Office: [phone] June 30, 2017 Jadiel Campbell MD via [facility] PATIENT NAME: KEILY RASMUSSEN [id number] Campbell: Our mutual patient Ms. Keily Rasmussen underwent reoperation re-resection of subaortic membrane on June 17, 2017. I am pleased to inform you that Ms. Rasmussen was discharged on June 21, 2017. Her complete discharge summary is available in [facility] for your review. Please feel free to contact me if you have any questions or concerns. Sincerely, Alberto Umana MD PhD COMP METABOLIC PANEL Collected: 06/27/2017 Status: F Source: [place] 11:21 AM [facility] REPOSITORY TYPE CODE TESTS RESULT OUT OF REFERENCE UNITS RANGE LAB TP 6.3-8.0 g/dL Protein, Total 7.2 LAB ALB 3.9-4.9 g/dL Low Albumin 3.6 LAB CA 8.5-10.2 mg/dL Calcium, Total 9.1 LAB TBIL 0.2-1.3 mg/dL Low Bilirubin, Total <0.2 LAB ALKP 32-117 U/L Alkaline Phosphatase 68 LAB AST 13-35 U/L AST 15 LAB GLU 74-99 mg/dL Glucose High 105 Result Comment: The [place] Diabetes [employer] (ADA) provides guidance for cutoff values for fasting glucose and random glucose. The ADA defines fasting as no caloric intake for at least 8 hours. Fas ting plasma glucose results between 100 to 125 mg/dL indicate increased risk for diabetes (prediabetes). Fasting plasma glucose results greater than or equal to 126 mg/dL meet the criteria for diagnosis of diabetes. In the absence of unequivocal hyperglycemia, results should be confirmed by repeat testing. In a patient with classic symptoms of hyperglycemia or hyperglycemic crisis, random plasma glucose results greater than or equal to 200 mg/dL meet the criteria for diagnosis of diabetes. Reference: Standards of Medical Care in Diabetes 2016, [place] [employer]. Diabetes Care. 2016.39(Suppl 1). LAB BUN 7-21 mg/dL BUN 8 LAB CRET 0.58-0.96 mg/dL Creatinine 0.66 LAB NA 136-144 mmol/L Sodium 138 LAB K 3.7-5.1 mmol/L Potassium 4.0 LAB CL 97-105 mmol/L Chloride 100 LAB CO2 22-30 mmol/L CO2 24 LAB AGAP 9-18 mmol/L Anion Gap 14 LAB ALT 7-38 U/L ALT 19 LAB GFRAA eGFR- Amer. >60 LAB GFRNAA . eGFR-All Other Races >60 Result Comment: eGFR (Estimated GFR) Units of measure: mL/min/1.73 meters squared eGFR is derived from the reexpressed MDRD Study equation using the following parameters: serum creatinine, age, gender and race. The creatinine assay has been calibrated to be traceable to IDMS. An eGFR <60 mL/min/1.73m2 for >3 months is consistent with chronic kidney disease. Refer to KDOQI guidelines for clinical interpretation. In patients with unstable renal function, e.g. those with acute kidney injury, the eGFR may not accurately reflect actual GFR. Performed By: #### CMP, CBCDIF #### [facility] [address] [place], [place] [address] CBC AND DIFFERENTIAL Collected: 06/27/2017 Status: F Source: [place] 11:21 AM [facility] REPOSITORY TYPE CODE TESTS RESULT OUT OF REFERENCE UNITS RANGE LAB WBC 3.70-11.00 k/uL WBC High 14.70 LAB RBC 3.90-5.20 m/uL RBC Low 3.65 LAB HGB 11.5-15.5 g/dL Low Hemoglobin 9.3 LAB HCT 36.0-46.0 % Low Hematocrit 31.0 LAB MCV 80.0-100.0 fL MCV 84.9 LAB MCH 26.0-34.0 pG MCH Low 25.5 LAB MCHC 30.5-36.0 g/dL MCHC Low 30.0 LAB RDWCV 11.5-15.0 % RDW-CV High 15.1 LAB PLTCT 150-400 k/uL Platelet High Count 557 LAB MPV 9.0-12.7 fL MPV 9.6 LAB ANEUT % Neut% 73.1 LAB AANEUT 1.45-7.50 k/uL Abs Neut High 10.75 LAB ALYMP % Lymph% 18.3 LAB AALYMP 1.00-4.00 k/uL Abs Lymph 2.69 LAB AMONO % [place]% 4.3 LAB AAMONO <0.87 k/uL Abs [place] 0.63 LAB AEOS % Eosin% 2.6 LAB AAEOS <0.46 k/uL Abs Eosin 0.38 LAB ABASO % Baso% 0.0 LAB AABASO <0.11 k/uL Abs Baso 0.00 LAB AMYELO % Myelo% 1.7 LAB LFTIMI Left Shift Present LAB RBCMOR Red Cell Morph SEE COMMENT Result Comment: Unremarkable LAB PLTEST Platelet Platelet Estimate estimate increased LAB DTYP DTYPE Manual Diff Performed By: #### CMP, CBCDIF #### [facility] [address] [id number] PROGRESS Observed: 06/27/2017 Status: COMPLETED Source: [place] 10:52 AM [facility] REPOSITORY HNO ID: [id number] Author: Jos Platt) Cameron Service: (none) Author Type: Physician Type: Progress Notes Filed: 06/27/2017 12:51 PM Note Text: Chief Complaint Patient presents with: Hospital Follow Up: open heart surgery HPI Keily Rasmussen is a 22 year old female who presents here today for Hospital Discharge Follow up.. Patient was admitted to [facility] from 06/17-06/21 for Subaortic membrane, history of PDA repair, and removal of ?subaortic membrane performed by Dr. Umana. Surgery went well and was discharged home on beta gurmeet, oxycodone, PPI, and ASA. Has since had follow up and recommended continued current regimen, wound care instructions given, and advised to follow up with PCP for pain control and repeat CBC and CMP. Patient has been doing well at home. Tolerating PO diet, normal urination and BM, no constipation with oxycodone BID. Oxycodone controlling post op pain. Still getting up to 9/10 on occasion around incision. Denies symptoms of infection. Knows dates of follow up appointments. Trying to sleep on back as recommended. Not sleeping on chest. Past medical history, appointments, medications, allergies reviewed. Previous Medical History PAST MEDICAL HISTORY Diagnosis Date - Aortic stenosis s/p repair of a PDA and subvalvular aortic stenosis. Sees Dr. Haider and Dr. Marie - Asthma - Morbid obesity (HCC) - PCOS (polycystic ovarian syndrome) elevated testosterone and elevated insulin - PDA (patent ductus arteriosus) s/p repair age 10 - Tobacco use Previous Surgical History PAST SURGICAL HISTORY Procedure Laterality Date - PAST SURGICAL HISTORY OF Repair of a PDA and subvalvular aortic stenosis-childhood Family History FAMILY HISTORY Problem Relation Age of Onset - COPD Mother - Thyroid Mother - Asthma Mother - Diabetes Father - Heart Father CO - Bone Disease [OTHER] Brother - COPD Sister - Diabetes Brother - Hypertension Maternal Grandmother - COPD Maternal Grandmother - Emphysema Maternal Grandmother - Heart Maternal Grandfather - Hypertension Maternal Grandfather - Cancer Paternal Uncle Patient Allergies ALLERGIES Allergen Reactions - Penicillins Hives - Tetanus And Diphthe* Rash Local erythema and swelling in the affected arm. Current Medications Current Outpatient Prescriptions on File Prior to Visit: acetaminophen (TYLENOL) 325 mg tablet Take 2 tablets by mouth every 6 hours as needed for Pain or Fever. oxyCODONE IR (ROXICODONE) 5 mg immediate release tablet Take 1 tablet by mouth every 6 hours as needed for Pain for up to 7 days. metoprolol tartrate, short acting, (LOPRESSOR) 25 mg tablet Take 2 tablets by mouth twice daily. therapeutic multivitamin (THERA VITAMIN) tablet Take 1 tablet by mouth daily with breakfast. aspirin 81 mg chewable tablet Take 1 tablet by mouth once daily. pantoprazole DR (PROTONIX) 20 mg tablet Take 1 tablet by mouth DAILY (6 AM) for 14 days. benzonatate (TESSALON PERLE) 100 mg capsule Take 100 mg by mouth three times daily as needed. albuterol HFA (VENTOLIN HFA) 90 mcg/actuation inhaler Inhale 2 Puffs as instructed every 4 hours as needed. buPROPion SR (WELLBUTRIN SR) 150 mg 12 hr tablet Take 1 tablet by mouth twice daily. Blood Pressure Test Kit-Large (QUICK RESPONSE BP MONITOR) kit Bp check weekly and as needed. (R03.0) Elevated blood pressure reading without diagnosis of hypertension No current facility-administered medications on file prior to visit. Social History Social History Marital status: Single Spouse name: Years of education: Number of children: Occupational History Occupation Employer Comment Unemployed Social History Main Topics Smoking status: Current Every Day Smoker Packs/day: 0.50 Years: 2.00 Types: Cigarettes Smokeless status: Never Used Alcohol use: No Drug use: No Sexual activity: Yes Partners with: Male Review of Symptoms REVIEW OF SYSTEMS GENERAL: No weight loss, malaise or fevers RESPIRATORY: Negative for cough, hemoptysis, wheezing, COPD, dyspnea or shortness of breath CARDIOVASCULAR: See HPI GI: No nausea, vomiting, or diarrhea SKIN: healing incision on chest with minimal purulent drainage EXAM: BP 130/64 Pulse 76 Temp (!) 35.9 ?C (96.6 ?F) (Temporal Artery) Resp 16 Wt (!) 140.2 kg (309 lb) LMP 05/28/2017 (Exact Date) SpO2 97% BMI 47.68 kg/m2 General Appearance: Well appearing, alert, in no acute distress, well-hydrated, well nourished.. Skin: Incision on from xyphoid to upper sternum healing well. No surrounding erythema. No crepitus. Minimal purulent discharge. Lungs: Lungs clear to auscultation. No wheezing, rhonchi, rales. Heart: RRR without murmur, gallop, or rubs. No ectopy. Health Maintenance List HPV VACCINE(2 of 3 - Female 3 Dose Series) due on 07/25/2017 GC (GONORRHEA) SCREENING (18-24) due on 02/17/2018 CHLAMYDIA SCREENING (18-24) due on 02/17/2018 TETANUS due on 04/11/2027 ONE PNEUMOVAX PRIOR TO AGE 65 Completed INFLUENZA Completed Data reviewed Component Latest Ref Rng AND Units 06/23/2017 WBC 3.70 - 11.00 k/uL 13.60 (H) RBC 3.90 - 5.20 m/uL 3.60 (L) Hemoglobin 11.5 - 15.5 g/dL 9.0 (L) Hematocrit 36.0 - 46.0 % 29.8 (L) MCV 80.0 - 100.0 fL 82.8 MCH 26.0 - 34.0 pG 25.0 (L) MCHC 30.5 - 36.0 g/dL 30.2 (L) RDW-CV 11.5 - 15.0 % 14.5 Platelet Count 150 - 400 k/uL 370 MPV 9.0 - 12.7 fL 9.7 Neut% % 68.1 Abs Neut (ANC) 1.45 - 7.50 k/uL 9.26 (H) Lymph% % 17.6 Abs Lymph 1.00 - 4.00 k/uL 2.40 [place]% % 9.5 Abs [place] <0.87 k/uL 1.29 (H) Eosin% % 4.0 Abs Eosin <0.46 k/uL 0.54 (H) Baso% % 0.8 Abs Baso <0.11 k/uL 0.11 (H) Nucleated Reds 0 /100 WBC 0.2 (H) Absolute nRBC <0.01 k/uL 0.03 (H) Diff Type Auto Diff Protein, Total 6.3 - 8.0 g/dL 6.7 Albumin 3.9 - 4.9 g/dL 3.3 (L) Calcium 8.5 - 10.2 mg/dL 9.0 Bilirubin, Total 0.2 - 1.3 mg/dL 0.2 Alkaline Phosphatase 32 - 117 U/L 66 AST 13 - 35 U/L 20 Glucose 74 - 99 mg/dL 85 BUN 7 - 21 mg/dL 6 (L) Creatinine 0.58 - 0.96 mg/dL 0.57 (L) Sodium 136 - 144 mmol/L 137 Potassium 3.7 - 5.1 mmol/L 4.2 Chloride 97 - 105 mmol/L 99 CO2 22 - 30 mmol/L 24 Anion Gap 9 - 18 mmol/L 14 ALT 7 - 38 U/L 17 eGFR- >60 eGFR-All Other Races . >60 ASSESSMENT/PLAN: 1. Aortic valve stenosis, etiology of cardiac valve disease unspecified - ICD9: 424.1, ICD10: I35.0 (primary diagnosis) S/p removal of subaortic membrane. Doing well at this time. Continue current regimen. Will control pain with oxycodone and tylenol as recommended. Keep follow up appointments with cardiology. To call with any concerns. 2. 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 Acute post-operative pain - ICD9: 338.18, ICD10: G89.18 See above. - OXYCODONE 5 MG TABLET 4. Postoperative anemia - ICD9: 285.9, ICD10: D64.9 Recheck CBC and CMP. Will call with results. - CBC + DIFF - COMP METABOLIC PANEL 5. Essential hypertension - ICD9: 401.9, ICD10: I10 - good control - Continue current medication(s) - Encouraged dietary sodium restriction/DASH diet - Recommended regular aerobic exercise. - Reviewed risks of HTN and principles of treatment - Goal of BP <140/90 Jos Barnes MD OBSOLETE Observed: 06/24/2017 Status: COMPLETED Source: [place] 12:00 AM [facility] REPOSITORY Refill (FAMPWS) KEILY RASMUSSEN ([id number]) 1995 F Date Time Provider Department 06/24/17 [facility]ARNES[facility] During your visit today, we recorded the following information about you: Kami Marilyn Psr 06/24/2017 11:21 AM Signed Patient has been identified by name and date of : Yes Pending Prescriptions Disp Refills OXYCODONE 5 MG TABLET 15 tablet 0 Sig: Take 1 tablet by mouth every 6 hours as needed for Pain for up to 7 days. NIMO Class: C-II SUKUMAR: No RX INSTRUCTIONS: Patient stated she was hospitalized and they told her to ask her PCP for refills. Call patient either way. Print and leave at the Medical Records front desk host. Call patient when complete. Kami Sanders Psr Jos Barnes MD 06/24/2017 11:41 AM Signed I have not seen this patient since her hospitalization. She needs to contact her surgeon's office to control pain as I have not evaluated her for pain. Ellen Domínguez Jannet Wayne 06/24/2017 12:55 PM Signed Spoke with patient, voiced understanding that she will need to contact the surgeon Ellen L Jannet Gathering Machine Feeder Allergies As of Date: 06/24/2017 Noted Allergy Reaction PENICILLINS 11/28/2014 4 - Hives TETANUS AND DIPHTHERIA TOXOIDS, A*04/14/2017 2 - Rash Comments: Local erythema and swelling in the affected arm. Date Reviewed: 06/23/2017 Reviewed by: Jessica Mathis Ma - Fully Assessed Reason for Visit: Refill Request [94] Visit Diagnosis:Acute post-operative pain [G89.18] Prescriptions as of 06/24/2017 Sig: ACETAMINOPHEN 325 MG TABLET Take 2 tablets by mouth every* OXYCODONE 5 MG TABLET Take 1 tablet by mouth every * METOPROLOL TARTRATE 25 MG TAB* Take 2 tablets by mouth twice* THERAPEUTIC MULTIVITAMIN TABL* Take 1 tablet by mouth daily * ASPIRIN 81 MG CHEWABLE TABLET Take 1 tablet by mouth once d* PANTOPRAZOLE 20 MG TABLET,DEL* Take 1 tablet by mouth DAILY * BENZONATATE 100 MG CAPSULE Take 100 mg by mouth three ti* ALBUTEROL SULFATE HFA 90 MCG/* Inhale 2 Puffs as instructed * BUPROPION HCL SR 150 MG TABLE* Take 1 tablet by mouth twice * BLOOD PRESSURE TEST KIT-LARGE* Bp check weekly and as needed* Problem List As Of Date 06/24/2017 Noted Resolved Heart valve stenosis [I38] INVALID FOR* Obesity, Class III, BMI 40-49.9 (morbid obesity*INVALID FOR* Hyperinsulinemia [E16.1] INVALID FOR* Adjustment disorder with mixed anxiety and depr*INVALID FOR* Priority: C More... Seasonal allergic rhinitis due to pollen [J30.1]INVALID FOR* Morbid obesity (HCC) [E66.01] Asthma [J45.909] Priority: B More... Aortic stenosis [I35.0] Priority: A More... PCOS (polycystic ovarian syndrome) [E28.2] More... Pre-op testing [Z01.818] INVALID FOR* More... Discharge planning issues [Z02.9] INVALID FOR* Priority: D More... On mechanically assisted ventilation (HCC) [Z99*INVALID FOR*06/18/2017 Priority: B More... Acute post-operative pain [G89.18] INVALID FOR* Priority: C More... Atelectasis [J98.11] INVALID FOR* Priority: B More... Hypovolemia [E86.1] INVALID FOR*06/18/2017 Priority: F More... Essential hypertension [I10] INVALID FOR* Priority: C More... Transition of care performed with sharing of cl*INVALID FOR* Priority: Very Severe More... Nicotine use disorder, F17.2 [F17.200] INVALID FOR* Encounter Status:Closed by ELLEN ELAM CMA on 06/24/17 CNOV Observed: 06/23/2017 Status: COMPLETED Source: [place] 2:30 PM [facility] REPOSITORY Office Visit (THOSMN) KEILY RASMUSSEN ([id number]) 1995 F Date Time Provider Department 06/23/17 2:30 PM MITCHELL WONG (JOHN) THOSMN During your visit today, we recorded the following information about you: Temperature Pulse Blood pressure Weight 98.3 degrees 71/minute 120/66 139.7 kg Mitchell Wong CNP, JOHN 06/23/2017 4:16 PM Signed [facility] Post op Follow up Keily Mario Valery is a 22 year old female who presents who is here for post operative follow up HPI: S/P on 06/17/2017 [facility] Surgeon: Dr. Umana [facility] Primary Stump Shooter: Dr. Marie Operations : Reoperation, ?second open heart surgery. ?Re- resection of subaortic ?membrane. Surgical Pathology: FINAL DIAGNOSIS Subaortic membrane, excision - Endocardial fibroelastosis. See comment. Discharged on 06/21/2017 PAST MEDICAL HISTORY Diagnosis Date - Aortic stenosis s/p repair of a PDA and subvalvular aortic stenosis. Sees Dr. Haider and Dr. Marie - Asthma - Morbid obesity (HCC) - PCOS (polycystic ovarian syndrome) elevated testosterone and elevated insulin - PDA (patent ductus arteriosus) s/p repair age 10 - Tobacco use PAST SURGICAL HISTORY Procedure Laterality Date - PAST SURGICAL HISTORY OF Repair of a PDA and subvalvular aortic stenosis-childhood ALLERGIES Allergen Reactions - Penicillins Hives - Tetanus And Diphthe* Rash Local erythema and swelling in the affected arm. Current Outpatient Prescriptions: acetaminophen (TYLENOL) 325 mg tablet Take 2 tablets by mouth every 6 hours as needed for Pain or Fever. oxyCODONE IR (ROXICODONE) 5 mg immediate release tablet Take 1 tablet by mouth every 6 hours as needed for Pain for up to 7 days. metoprolol tartrate, short acting, (LOPRESSOR) 25 mg tablet Take 2 tablets by mouth twice daily. therapeutic multivitamin (THERA VITAMIN) tablet Take 1 tablet by mouth daily with breakfast. aspirin 81 mg chewable tablet Take 1 tablet by mouth once daily. pantoprazole DR (PROTONIX) 20 mg tablet Take 1 tablet by mouth DAILY (6 AM) for 14 days. benzonatate (TESSALON PERLE) 100 mg capsule Take 100 mg by mouth three times daily as needed. albuterol HFA (VENTOLIN HFA) 90 mcg/actuation inhaler Inhale 2 Puffs as instructed every 4 hours as needed. buPROPion SR (WELLBUTRIN SR) 150 mg 12 hr tablet Take 1 tablet by mouth twice daily. Blood Pressure Test Kit-Large (QUICK RESPONSE BP MONITOR) kit Bp check weekly and as needed. (R03.0) Elevated blood pressure reading without diagnosis of hypertension No current facility-administered medications for this visit. Chief Complaints: ANDquot; I think my CT site is weird lookinANDquot; Discharge Post Operative Course: Pain scale :Yes Chest wall pain. Current regiment managing. Pt stating also smoking marijuana for pain relief Appetite: appetite good Activity: Walking ad nohemy around the house Elimination: constipation has been a problem using stool softeners, urination is normal Sleep: difficulty staying asleep Mood: normal and good Incisions/Wounds: healing Review of Systems: HEENT: Negative for fevers since discharge, chills, night sweats and blurry vision Cardiac: Denies significant problems, chest pain, Arrhythmia and leg edema Respiratory: denies dyspnea, cough, orthopnea, is smoking cigarettes and marijuana Musculoskeletal: No history of joint swelling, joint pain, or loss of range of motion. Neuro: Denies neurological complaints Physical Exam: BP 120/66 (BP Site: Left Arm, BP Position: Sitting, BP Cuff Size: Regular Adult) Pulse 71 Temp 36.8 ?C (98.3 ?F) (Oral) Wt (!) 139.7 kg (308 lb) LMP 05/28/2017 (Exact Date) SpO2 98% BMI 47.53 kg/m2 Appearance: young, cigarette odor, uncleanness, obese, white female, in no acute distress Neck: No neck vein distention Cardiac: regular S1, S2, No murmur, No rub Lungs: Clear breath sounds bilaterally without wheeze or dullness Abdomen: soft, non tender, obese, Normal bowel sounds Extremities: No edema Sternum: stable, no click Sternotomy site: healing, clean, dry and intact Wound: NA Procedures: N/A IMPRESSION ANDamp; PLAN: 1.S/P on 06/17/2017 [facility] Surgeon: Dr. Umana [facility] Primary Stump Shooter: Dr. Marie Operations : Reoperation, ?second open heart surgery. ?Re- resection of subaortic ?membrane. Surgical Pathology: FINAL DIAGNOSIS Subaortic membrane, excision - Endocardial fibroelastosis. See comment. Discharged on 06/21/2017 2. Aortic Stenosis - Repair of a PDA and subvalvular aortic stenosis @ age 10 - post op echo reviewed by CTS - continue asa EC06/23/2017 Diagnosis:NORMAL SINUS RHYTHM COMPLETE LEFT BUNDLE BRANCH BLOCK ABNORMAL ECG ? Ventricular Rate : 73 ?BPM Atrial Rate : 73 ?BPM 3. Atelectasis/Asthma - improving - long discussion of the negative effects of both cigarette and marijuana smoking post operatively - pt declined any assistance besides the Wellbutrin therapy at this time - family admitted to also sharing and smoking mariguana with pt - encouraged to continue deep breathing exercises and walking CXR:06/23/2017 RESULT: Lines, tubes, and devices: ?None. Lungs and pleura: ?There has been a shallow inspiration. There are small bilateral pleural effusions which have decreased. There remains mild pulmonary vascular redistribution. Interstitial edema has resolved. Bibasilar atelectasis has improved. Cardiomediastinal silhouette: ?Sternotomy sutures are present from aortic valve repair. A surgical clip is in the middle mediastinum superiorly secondary to patent ductus arteriosus closure. There is cardiomegaly which has decreased. There is post operative widening of the mediastinum. Other: ?Degenerative change is in the thoracic spine. 4. HTN - stable - continue same medications 5. Post op Anemia - improving - encouraged to increase dietary iron - repeat cbc in one week LABS:06/23/2017 Component Latest Ref Rng ANDamp; Units 06/21/2017 06/23/2017 WBC 3.70 - 11.00 k/uL 7.83 13.60 (H) RBC 3.90 - 5.20 m/uL 3.22 (L) 3.60 (L) Hemoglobin 11.5 - 15.5 g/dL 8.4 (L) 9.0 (L) Hematocrit 36.0 - 46.0 % 26.5 (L) 29.8 (L) Platelet Count 150 - 400 k/uL 239 370 Component Latest Ref Rng ANDamp; Units 06/21/2017 06/23/2017 AST 13 - 35 U/L 12 (L) 20 Glucose 74 - 99 mg/dL 67 (L) 85 BUN 7 - 21 mg/dL 12 6 (L) Creatinine 0.58 - 0.96 mg/dL 0.57 (L) 0.57 (L) Sodium 136 - 144 mmol/L 136 137 Potassium 3.7 - 5.1 mmol/L 4.2 4.2 Summary: Follow up with PCP in one week with repeat cbc and cmp to monitor elevated wbc/post op anemia Follow up with Stump Shooter in 4-6 weeks Post op care and discharge orders reviewed with the patient- all questions were answered. Surgical sites healing without complication Discussed new medications, dosage, route of administration and side effects Reviewed walking program at home Reviewed diet guidelines for recovery from surgery Return to the clinic prn with signs or symptoms of infection, fevers, SOB, or pleural effusion SBE prophylaxis reviewed Discussed wound care Mitchell Wong CNP Referring Provider: ALBERTO UMANA [[id number]] Allergies As of Date: 06/23/2017 Noted Allergy Reaction PENICILLINS 11/28/2014 4 - Hives TETANUS AND DIPHTHERIA TOXOIDS, A*04/14/2017 2 - Rash Comments: Local erythema and swelling in the affected arm. Date Reviewed: 06/23/2017 Reviewed by: Jessica Mathis Ma - Fully Assessed Reason for Visit: Follow Up [171] Primary Visit Diagnosis:Aortic valve stenosis, etiology of cardiac valve disease unspecified [I35.0] Other Visit Diagnoses:Atelectasis [J98.11] Essential hypertension [I10] Marijuana smoker, episodic [F12.90] Cigarette smoker [F17.210] Prescriptions as of 06/23/2017 Sig: ACETAMINOPHEN 325 MG TABLET Take 2 tablets by mouth every* OXYCODONE 5 MG TABLET Take 1 tablet by mouth every * METOPROLOL TARTRATE 25 MG TAB* Take 2 tablets by mouth twice* THERAPEUTIC MULTIVITAMIN TABL* Take 1 tablet by mouth daily * ASPIRIN 81 MG CHEWABLE TABLET Take 1 tablet by mouth once d* PANTOPRAZOLE 20 MG TABLET,DEL* Take 1 tablet by mouth DAILY * BENZONATATE 100 MG CAPSULE Take 100 mg by mouth three ti* ALBUTEROL SULFATE HFA 90 MCG/* Inhale 2 Puffs as instructed * BUPROPION HCL SR 150 MG TABLE* Take 1 tablet by mouth twice * BLOOD PRESSURE TEST KIT-LARGE* Bp check weekly and as needed* Problem List As Of Date 06/23/2017 Noted Resolved Heart valve stenosis [I38] INVALID FOR* Obesity, Class III, BMI 40-49.9 (morbid obesity*INVALID FOR* Hyperinsulinemia [E16.1] INVALID FOR* Adjustment disorder with mixed anxiety and depr*INVALID FOR* Priority: C More... Seasonal allergic rhinitis due to pollen [J30.1]INVALID FOR* Morbid obesity (HCC) [E66.01] Asthma [J45.909] Priority: B More... Aortic stenosis [I35.0] Priority: A More... PCOS (polycystic ovarian syndrome) [E28.2] More... Pre-op testing [Z01.818] INVALID FOR* More... Discharge planning issues [Z02.9] INVALID FOR* Priority: D More... On mechanically assisted ventilation (HCC) [Z99*INVALID FOR*06/18/2017 Priority: B More... Acute post-operative pain [G89.18] INVALID FOR* Priority: C More... Atelectasis [J98.11] INVALID FOR* Priority: B More... Hypovolemia [E86.1] INVALID FOR*06/18/2017 Priority: F More... Essential hypertension [I10] INVALID FOR* Priority: C More... Transition of care performed with sharing of cl*INVALID FOR* Priority: Very Severe More... Nicotine use disorder, F17.2 [F17.200] INVALID FOR* Encounter Status:Closed by MITCHELL WONG CNP on 06/23/17 PROGRESS Observed: 06/23/2017 Status: COMPLETED Source: [place] 1:51 PM [facility] REPOSITORY HNO ID: [id number] Author: Jessica Villanueva Service: (none) Author Type: (none) Type: Progress Notes Filed: 06/23/2017 1:51 PM Note Text: Radiology Service Progress Note PATIENT NAME: Keily Rasmussen DATE OF SERVICE: June 23, 2017 TIME: 1:51 PM PATIENT IDENTITY VERIFICATION COMPLETED USING TWO (2) METHODS: Patient confirmed name verbally and Date of . PATIENT GENDER DATA: Female. status: : No status: NO. PATIENT RELEVANT IMPLANT DATA REVIEWED: Not Applicable RADIOLOGY DEPARTMENT: General X-ray: Exam(s) Completed: Chest X-Ray PERIPHERAL IV DATA: Not applicable SIGNED BY: Jessica Villanueva June 23, 2017 1:51 PM XR CHEST 2V FRONTAL/LAT Observed: 06/23/2017 Status: F Source: [place] 1:46 PM [facility] REPOSITORY * * *Final Report* * * DATE OF EXAM: Jun 23 2017 1:46PM MOHINDER [id number] - XR CHEST 2V FRONTAL/LAT / PROCEDURE REASON: multiple diagnoses * * * * Physician Interpretation * * * * EXAMINATION: CHEST RADIOGRAPH (2 VIEW FRONTAL and LATERAL) Clinical History: Nonrheumatic aortic (valve) stenosis Endocarditis, valve unspecified M: XC2_3 Comparison: June 20, 2017 RESULT: Lines, tubes, and devices: None. Lungs and pleura: There has been a shallow inspiration. There are small bilateral pleural effusions which have decreased. There remains mild pulmonary vascular redistribution. Interstitial edema has resolved. Bibasilar atelectasis has improved. Cardiomediastinal silhouette: Sternotomy sutures are present from aortic valve repair. A surgical clip is in the middle mediastinum superiorly secondary to patent ductus arteriosus closure. There is cardiomegaly which has decreased. There is post operative widening of the mediastinum. Other: Degenerative change is in the thoracic spine. IMPRESSION: Aortic valve repair: Remote patent ductus arteriosus closure Congestive heart failure improved Bridge Tender: MAYURI Transcribe Date/Time: Jun 23 2017 1:56P Dictated by : NICHOLAS CELAYA MD This examination was interpreted and the report reviewed and electronically signed by: NICHOLAS CELAYA MD on Jun 23 2017 1:59PM EST [id number] PROGRESS Observed: 06/23/2017 Status: COMPLETED Source: [place] 1:39 PM [facility] REPOSITORY HNO ID: [id number] Author: Mitchell He) JOHN Wong Service: (none) Author Type: Nurse Practitioner Type: Progress Notes Filed: 06/23/2017 4:16 PM Note Text: [facility] [place] [facility] Post op Follow up Keily Rasmussen is a 22 year old female who presents who is here for post operative follow up HPI: S/P on 06/17/2017 [facility] Surgeon: Dr. Umana [facility] Primary Stump Shooter: Dr. Marie Operations : Reoperation, ?second open heart surgery. ?Re- resection of subaortic ?membrane. Surgical Pathology: FINAL DIAGNOSIS Subaortic membrane, excision - Endocardial fibroelastosis. See comment. Discharged on 06/21/2017 PAST MEDICAL HISTORY Diagnosis Date - Aortic stenosis s/p repair of a PDA and subvalvular aortic stenosis. Sees Dr. Haider and Dr. Marie - Asthma - Morbid obesity (HCC) - PCOS (polycystic ovarian syndrome) elevated testosterone and elevated insulin - PDA (patent ductus arteriosus) s/p repair age 10 - Tobacco use PAST SURGICAL HISTORY Procedure Laterality Date - PAST SURGICAL HISTORY OF Repair of a PDA and subvalvular aortic stenosis-childhood ALLERGIES Allergen Reactions - Penicillins Hives - Tetanus And Diphthe* Rash Local erythema and swelling in the affected arm. Current Outpatient Prescriptions: acetaminophen (TYLENOL) 325 mg tablet Take 2 tablets by mouth every 6 hours as needed for Pain or Fever. oxyCODONE IR (ROXICODONE) 5 mg immediate release tablet Take 1 tablet by mouth every 6 hours as needed for Pain for up to 7 days. metoprolol tartrate, short acting, (LOPRESSOR) 25 mg tablet Take 2 tablets by mouth twice daily. therapeutic multivitamin (THERA VITAMIN) tablet Take 1 tablet by mouth daily with breakfast. aspirin 81 mg chewable tablet Take 1 tablet by mouth once daily. pantoprazole DR (PROTONIX) 20 mg tablet Take 1 tablet by mouth DAILY (6 AM) for 14 days. benzonatate (TESSALON PERLE) 100 mg capsule Take 100 mg by mouth three times daily as needed. albuterol HFA (VENTOLIN HFA) 90 mcg/actuation inhaler Inhale 2 Puffs as instructed every 4 hours as needed. buPROPion SR (WELLBUTRIN SR) 150 mg 12 hr tablet Take 1 tablet by mouth twice daily. Blood Pressure Test Kit-Large (QUICK RESPONSE BP MONITOR) kit Bp check weekly and as needed. (R03.0) Elevated blood pressure reading without diagnosis of hypertension No current facility-administered medications for this visit. Chief Complaints: I think my CT site is weird lookin Discharge Post Operative Course: Pain scale :Yes Chest wall pain. Current regiment managing. Pt stating also smoking marijuana for pain relief Appetite: appetite good Activity: Walking ad nohemy around the house Elimination: constipation has been a problem using stool softeners, urination is normal Sleep: difficulty staying asleep Mood: normal and good Incisions/Wounds: healing Review of Systems: HEENT: Negative for fevers since discharge, chills, night sweats and blurry vision Cardiac: Denies significant problems, chest pain, Arrhythmia and leg edema Respiratory: denies dyspnea, cough, orthopnea, is smoking cigarettes and marijuana Musculoskeletal: No history of joint swelling, joint pain, or loss of range of motion. Neuro: Denies neurological complaints Physical Exam: BP 120/66 (BP Site: Left Arm, BP Position: Sitting, BP Cuff Size: Regular Adult) Pulse 71 Temp 36.8 ?C (98.3 ?F) (Oral) Wt (!) 139.7 kg (308 lb) LMP 05/28/2017 (Exact Date) SpO2 98% BMI 47.53 kg/m2 Appearance: young, cigarette odor, uncleanness, obese, white female, in no acute distress Neck: No neck vein distention Cardiac: regular S1, S2, No murmur, No rub Lungs: Clear breath sounds bilaterally without wheeze or dullness Abdomen: soft, non tender, obese, Normal bowel sounds Extremities: No edema Sternum: stable, no click Sternotomy site: healing, clean, dry and intact Wound: NA Procedures: N/A IMPRESSION AND PLAN: 1.S/P on 06/17/2017 [facility] Surgeon: Dr. Umana [facility] Primary Stump Shooter: Dr. Marie Operations : Reoperation, ?second open heart surgery. ?Re- resection of subaortic ?membrane. Surgical Pathology: FINAL DIAGNOSIS Subaortic membrane, excision - Endocardial fibroelastosis. See comment. Discharged on 06/21/2017 2. Aortic Stenosis - Repair of a PDA and subvalvular aortic stenosis @ age 10 - post op echo reviewed by CTS - continue asa EC06/23/2017 Diagnosis:NORMAL SINUS RHYTHM COMPLETE LEFT BUNDLE BRANCH BLOCK ABNORMAL ECG ? Ventricular Rate : 73 ?BPM Atrial Rate : 73 ?BPM 3. Atelectasis/Asthma - improving - long discussion of the negative effects of both cigarette and marijuana smoking post operatively - pt declined any assistance besides the Wellbutrin therapy at this time - family admitted to also sharing and smoking mariguana with pt - encouraged to continue deep breathing exercises and walking CXR:06/23/2017 RESULT: Lines, tubes, and devices: ?None. Lungs and pleura: ?There has been a shallow inspiration. There are small bilateral pleural effusions which have decreased. There remains mild pulmonary vascular redistribution. Interstitial edema has resolved. Bibasilar atelectasis has improved. Cardiomediastinal silhouette: ?Sternotomy sutures are present from aortic valve repair. A surgical clip is in the middle mediastinum superiorly secondary to patent ductus arteriosus closure. There is cardiomegaly which has decreased. There is post operative widening of the mediastinum. Other: ?Degenerative change is in the thoracic spine. 4. HTN - stable - continue same medications 5. Post op Anemia - improving - encouraged to increase dietary iron - repeat cbc in one week LABS:06/23/2017 Component Latest Ref Rng AND Units 06/21/2017 06/23/2017 WBC 3.70 - 11.00 k/uL 7.83 13.60 (H) RBC 3.90 - 5.20 m/uL 3.22 (L) 3.60 (L) Hemoglobin 11.5 - 15.5 g/dL 8.4 (L) 9.0 (L) Hematocrit 36.0 - 46.0 % 26.5 (L) 29.8 (L) Platelet Count 150 - 400 k/uL 239 370 Component Latest Ref Rng AND Units 06/21/2017 06/23/2017 AST 13 - 35 U/L 12 (L) 20 Glucose 74 - 99 mg/dL 67 (L) 85 BUN 7 - 21 mg/dL 12 6 (L) Creatinine 0.58 - 0.96 mg/dL 0.57 (L) 0.57 (L) Sodium 136 - 144 mmol/L 136 137 Potassium 3.7 - 5.1 mmol/L 4.2 4.2 Summary: Follow up with PCP in one week with repeat cbc and cmp to monitor elevated wbc/post op anemia Follow up with Stump Shooter in 4-6 weeks Post op care and discharge orders reviewed with the patient- all questions were answered. Surgical sites healing without complication Discussed new medications, dosage, route of administration and side effects Reviewed walking program at home Reviewed diet guidelines for recovery from surgery Return to the clinic prn with signs or symptoms of infection, fevers, SOB, or pleural effusion SBE prophylaxis reviewed Discussed wound care Mitchell Wong CNP CBC AND DIFFERENTIAL Collected: 06/23/2017 Status: F Source: [place] 1:24 PM [facility] RE[facility] TYPE CODE TESTS RESULT OUT OF REFERENCE UNITS RANGE LAB WBC 3.70-11.00 k/uL WBC High 13.60 LAB RBC 3.90-5.20 m/uL Low RBC 3.60 LAB HGB 11.5-15.5 g/dL Low Hemoglobin 9.0 LAB HCT 36.0-46.0 % Low Hematocrit 29.8 LAB MCV 80.0-100.0 fL MCV 82.8 LAB MCH 26.0-34.0 pG Low MCH 25.0 LAB MCHC 30.5-36.0 g/dL Low MCHC 30.2 LAB RDWCV 11.5-15.0 % RDW-CV 14.5 LAB PLTCT 150-400 k/uL Platelet Count 370 LAB MPV 9.0-12.7 fL MPV 9.7 LAB ANEUT % Neut% 68.1 LAB AANEUT 1.45-7.50 k/uL Abs Neut High 9.26 LAB ALYMP % Lymph% 17.6 LAB AALYMP 1.00-4.00 k/uL Abs Lymph 2.40 LAB AMONO % [place]% 9.5 LAB AAMONO <0.87 k/uL Abs [place] High 1.29 LAB AEOS % Eosin% 4.0 LAB AAEOS <0.46 k/uL Abs High Eosin 0.54 LAB ABASO % Baso% 0.8 LAB AABASO <0.11 k/uL Abs Baso High 0.11 LAB AUNRBC 0 /100 WBC NRBCs High 0.2 LAB ABNRBC <0.01 k/uL Absolute High nRBC 0.03 LAB DTYP DTYPE Auto Diff Performed By: #### CBCDIF, CMP #### [facility] [address] [place], [place] [address] COMP METABOLIC PANEL Collected: 06/23/2017 Status: F Source: [place] 1:24 PM [facility] REPOSITORY TYPE CODE TESTS RESULT OUT OF REFERENCE UNITS RANGE LAB TP 6.3-8.0 g/dL Protein, Total 6.7 LAB ALB 3.9-4.9 g/dL Low Albumin 3.3 LAB CA 8.5-10.2 mg/dL Calcium, Total 9.0 LAB TBIL 0.2-1.3 mg/dL Bilirubin, Total 0.2 LAB ALKP 32-117 U/L Alkaline Phosphatase 66 LAB AST 13-35 U/L AST 20 LAB GLU 74-99 mg/dL Glucose 85 Result Comment: The [place] [employer] (ADA) provides guidance for cutoff values for fasting glucose and random glucose. The ADA defines fasting as no caloric intake for at least 8 hours. Fas ting plasma glucose results between 100 to 125 mg/dL indicate increased risk for diabetes (prediabetes). Fasting plasma glucose results greater than or equal to 126 mg/dL meet the criteria for diagnosis of diabetes. In the absence of unequivocal hyperglycemia, results should be confirmed by repeat testing. In a patient with classic symptoms of hyperglycemia or hyperglycemic crisis, random plasma glucose results greater than or equal to 200 mg/dL meet the criteria for diagnosis of diabetes. Reference: Standards of Medical Care in Diabetes 2016, [place] [employer]. Diabetes Care. 2016.39(Suppl 1). LAB BUN 7-21 mg/dL BUN Low 6 LAB CRET 0.58-0.96 mg/dL Creatinine Low 0.57 LAB NA 136-144 mmol/L Sodium 137 LAB K 3.7-5.1 mmol/L Potassium 4.2 LAB CL 97-105 mmol/L Chloride 99 LAB CO2 22-30 mmol/L CO2 24 LAB AGAP 9-18 mmol/L Anion Gap 14 LAB ALT 7-38 U/L ALT 17 LAB GFRAA eGFR- Amer. >60 LAB GFRNAA . eGFR-All Other Races >60 Result Comment: eGFR (Estimated GFR) Units of measure: mL/min/1.73 meters squared eGFR is derived from the reexpressed MDRD Study equation using the following parameters: serum creatinine, age, gender and race. The creatinine assay has been calibrated to be traceable to IDMS. An eGFR <60 mL/min/1.73m2 for >3 months is consistent with chronic kidney disease. Refer to KDOQI guidelines for clinical interpretation. In patients with unstable renal function, e.g. those with acute kidney injury, the eGFR may not accurately reflect actual GFR. Performed By: #### CBCDIF, CMP #### [facility] [address] [place], [place] [address] PLAN OF CARE Observed: 06/21/2017 Status: COMPLETED Source: [place] 12:21 PM [facility] [place] REPOSITORY HNO ID: [id number] Author: Bhavya Canales ([employer]attery [employer]) Service: (none) Author Type: (none) Type: Plan of Care Filed: 06/21/2017 12:22 PM Note Text: PHARMACY BEDSIDE DELIVERY SERVICE Patient Name: Keily Rasmussen The marked outpatient medications were Filled at: [facility] and delivered to the patient's bedside to patient Medication List START taking these medications acetaminophen 325 mg tablet Commonly known as: TYLENOL Take 2 tablets by mouth every 6 hours as needed for Pain or Fever. aspirin 81 mg chewable tablet Take 1 tablet by mouth once daily. Start taking on: 06/22/2017 x metoprolol tartrate (short acting) 25 mg tablet Commonly known as: LOPRESSOR Take 2 tablets by mouth twice daily. x oxyCODONE IR 5 mg immediate release tablet Commonly known as: ROXICODONE Take 1 tablet by mouth every 6 hours as needed for Pain for up to [address] 20 mg tablet Commonly known as: PROTONIX Take 1 tablet by mouth DAILY (6 AM) for 14 days. Start taking on: 06/22/2017 x therapeutic multivitamin tablet Commonly known as: THERA VITAMIN Take 1 tablet by mouth daily with breakfast. Start taking on: 06/22/2017 CONTINUE taking these medications albuterol HFA 90 mcg/actuation inhaler Commonly known as: VENTOLIN HFA Inhale 2 Puffs as instructed every 4 hours as needed. benzonatate 100 mg capsule Commonly known as: Ener.coOLEG [facility] Blood Pressure Test Kit-Large Kit Commonly known as: Quick Response BP Monitor Bp check weekly and as needed. (R03.0) Elevated blood pressure reading without diagnosis of hypertension buPROPion SR 150 mg 12 hr tablet Commonly known as: WELLBUTRIN SR Take 1 tablet by mouth twice daily. STOP taking these medications HYDROcodone-acetaminophen 5-325 mg per tablet Commonly known as: NORCO MONODOX 50 mg capsule Generic drug: doxycycline monohydrate mupirocin 2 % ointment Commonly known as: BACTROBAN Bhavya Canales ([employer]) PAGER: [phone] June 21, 2017 12:21 PM PLAN OF CARE Observed: 06/21/2017 Status: COMPLETED Source: [place] 9:22 AM [facility] REPOSITORY HNO ID: [id number] Author: Juana Martinez ([employer]) Service: (none) Author Type: (none) Type: Plan of Care Filed: 06/21/2017 9:23 AM Note Text: Pharmacy Discharge Medication Service: This patient has elected to receive their discharge prescriptions through the [facility] Bedside Prescription Delivery program. The prescriptions are currently being processed. A follow-up note will be entered once the prescriptions have been filled and delivered to the patient. Please contact me with any questions or updates to the patient's discharge medications. 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 Patient to use [facility] Bedside Delivery - YES 2. If fax, patient would like us to fax prescriptions to Pharmacy of choice a. Pharmacy: b. Location: c. Phone: 3. Insurance card on file - YES 4. Credit card for payment - N/A CNDS Observed: 06/21/2017 Status: COMPLETED Source: [place] 9:03 AM [facility] REPOSITORY HNO ID: [id number] Author: Laura Nice Service: Cardiac Surgery Author Type: Nurse Practitioner Type: Discharge Summaries Filed: 06/21/2017 9:05 AM Note Text: Department of Cardiothoracic Surgery Discharge Summary (Template ID [id number]) Patient Name: Keily Rasmussen Patient Admission Date: 06/17/2017 Discharge Date: 06/21/2017 Attending Physician: Alberto Umana Primary Service: i Cts Team B Admission Diagnosis: Subaortic membrane, history of PDA repair, and removal of subaortic membrane. Discharge Diagnosis: Subaortic membrane, history of PDA repair, and removal of subaortic membrane. [facility] Surgeon: Dr. Umana [facility] Primary Stump Shooter: Dr. Marie Reason for Hospitalization: Subaortic membrane, history of PDA repair, and removal of subaortic membrane. Operations during Hospitalization: Reoperation, second open heart surgery. Re-resection of subaortic membrane. Hospital Course: Additional findings: -The pacemaker wires were removed after surgery. These wires will not have any impact on your heart function. Surgical Pathology: FINAL DIAGNOSIS Subaortic membrane, excision - Endocardial fibroelastosis. See comment. COMMENT Microscopic examination shows a semicircular segment of tissue consisting of fibrous tissue and elastic fibers, thus diagnostic of subendocardial fibroelastotic ring. The Movat stain distinctly shows the combination of fibrous tissue and elastic lamellae. In addition, there is myocardium subjacent to the endocardial fibroelastotic tissue. The myocardium shows mild hypertrophy with average diameter of the myocytes being 40 micrometers. There is no storage material in the myocardium. There is no evidence of inflammatory infiltrates, giant cells or granulomata in the myocardium or in the fibroelastotic tissue. There is no evidence of acute inflammation. SPECIMEN SUBMITTED A: SUBAORTIC MEMBRANE GROSS DESCRIPTION A. Received in formalin labeled subaortic membrane are multiple fragments of spence to whitish booth soft tissue aggregating to 3.5 x 1.5 x 0.8 cm. The specimen is totally submitted in one cassette. Pending results: No pending results. Pain Control: Adequate management. Treatment/wound care: Wash the incision sites daily with regular soap (not perfumed soap or shower gels) and water. Keep the area clean and dry when you are not showering. Do not use creams, lotions or ointment on the incision sites. Do not soak in a tub, pool or hot tub until your incisions are completely healed. Activity after Discharge: After discharge activity restrictions: no heavy lifting greater than 10 pounds and no driving for 8 weeks. See your parking manager before resuming strenuous activities to make sure your sternum has healed. Please continue your daily walking, increasing both your effort and endurance. Please discuss Stage II Cardiac Rehabilitation with your physician at your follow-up appointment. Please refer to your Cardiac Rehab Handout and/or Recovery from Heart Surgery binder for specific questions regarding your activity limitations following surgery. Problem List: Patient Active Hospital Problem List: Aortic stenosis () Transition of care performed with sharing of clinical summary (06/19/2017) Asthma () Atelectasis (06/17/2017) Adjustment disorder with mixed anxiety and depressed mood (04/11/2017) Acute post-operative pain (06/17/2017) Essential hypertension (06/18/2017) Discharge planning issues (06/11/2017) Consults: None Procedures Performed and Major Radiology: Echocardiogram Patient Condition at Discharge: Improved Disposition: Home Information Provided to the Patient: Patient given copy of After Visit Summary which included activity instructions, diet instructions, wound care instructions, medication instructions and follow up appointment Discharge Medications: Current Discharge Medication List START taking these medications acetaminophen (TYLENOL) 650 mg Take 650 mg by mouth every 6 hours as needed for Pain or Fever. oxyCODONE IR (ROXICODONE) 5 mg Take 5 mg by mouth every 6 hours as needed for Pain. Earliest Fill Date: 06/21/17 Qty: 15 tablet Refills: 0 Associated Diagnoses:Acute post-operative pain metoprolol tartrate (short acting) (LOPRESSOR) 50 mg Take 50 mg by mouth twice daily. Qty: 120 tablet Refills: 2 therapeutic multivitamin (THERA VITAMIN) 1 tablet Take 1 tablet by mouth daily with breakfast. Qty: 30 tablet Refills: 0 aspirin 81 mg Take 81 mg by mouth once daily. pantoprazole DR (PROTONIX) 20 mg Take 20 mg by mouth DAILY (6 AM). Qty: 14 tablet Refills: 0 CONTINUE these medications which have NOT CHANGED benzonatate (TESSALON PERLE) 100 mg Take 100 mg by mouth three times daily as needed. albuterol HFA (PROVENTIL HFA, VENTOLIN HFA) 2 Puffs Inhale 2 Puffs as instructed every 4 hours as needed. Qty: 1 Inhaler Refills: 1 Associated Diagnoses:Mild intermittent asthma without complication buPROPion SR (ZYBAN SR; WELLBUTRIN SR) 150 mg Take 150 mg by mouth twice daily. Qty: 60 tablet Refills: 2 Associated Diagnoses:Tobacco use Blood Pressure Test Kit-Large (QUICK RESPONSE BP MONITOR) kit Bp check weekly and as needed. (R03.0) Elevated blood pressure reading without diagnosis of hypertension Qty: 1 Kit Refills: 0 STOP taking these medications HYDROcodone-acetaminophen (NORCO) 1 tablet Comments: Reason for Stopping: doxycycline monohydrate (MONODOX) 50 mg Comments: Reason for Stopping: mupirocin (BACTROBAN) 1 application Comments: Reason for Stopping: Future Appointments Date Time Provider Department Center 06/30/2017 12:30 PM [id number]-LBJ1-4 MAIN LBJ1-4 CARD J D 06/30/2017 12:40 PM [id number] CHEST MAIN J1 RADMNJ [facility]IO [facility] 06/30/2017 12:45 PM [id number] MAIN EKGF16 CARD J D 06/30/2017 1:00 PM [id number] MARRERO ([facility]) THOSMN [facility]THO [facility] 07/25/2017 8:10 AM 6515-LBJ1-4 MAIN LBJ1-4 CARD J D 07/25/2017 8:30 AM [id number] MAIN [id number] CARD J D 07/25/2017 9:00 AM [id number] DISCHARGE ECHO J3-5 PERVMN VASM J/S d 07/25/2017 10:15 AM [id number] CHAN BLD 07/25/2017 10:15 AM [id number] CHAN BLD 09/19/2017 2:00 PM [id number]-JKRAYFEMMANUEL MCFADDEN AGCARDWST [facility] NATY Electronically SIGNED by Licensed Independent Practitioner: Laura Nice CNP CBC Collected: 06/21/2017 Status: F Source: [place] 7:10 AM [facility] REPOSITORY TYPE CODE TESTS RESULT OUT OF REFERENCE UNITS RANGE LAB WBC 3.70-11.00 k/uL WBC 7.83 LAB RBC 3.90-5.20 m/uL Low RBC 3.22 LAB HGB 11.5-15.5 g/dL Low Hemoglobin 8.4 LAB HCT 36.0-46.0 % Low Hematocrit 26.5 LAB MCV 80.0-100.0 fL MCV 82.3 LAB MCH 26.0-34.0 pG MCH 26.1 LAB MCHC 30.5-36.0 g/dL MCHC 31.7 LAB RDWCV 11.5-15.0 % RDW-CV 14.7 LAB PLTCT 150-400 k/uL Platelet Count 239 LAB MPV 9.0-12.7 fL MPV 10.4 LAB ABSNUC <0.01 k/uL Absolute nRBC <0.01 Performed By: #### CBC, CMP #### [facility] [address] [address] COMP METABOLIC PANEL Collected: 06/21/2017 Status: F Source: [place] 7:10 AM [facility] REPOSITORY TYPE CODE TESTS RESULT OUT OF REFERENCE UNITS RANGE LAB TP 6.3-8.0 g/dL Protein, Total 6.4 LAB ALB 3.9-4.9 g/dL Low Albumin 2.9 LAB CA 8.5-10.2 mg/dL Calcium, Total 8.9 LAB TBIL 0.2-1.3 mg/dL Bilirubin, Total 0.3 LAB ALKP 32-117 U/L Alkaline Phosphatase 60 LAB AST 13-35 U/L Low AST 12 LAB GLU 74-99 mg/dL Low Glucose 67 Result Comment: The [place] [employer] (ADA) provides guidance for cutoff values for fasting glucose and random glucose. The ADA defines fasting as no caloric intake for at least 8 hours. Fas ting plasma glucose results between 100 to 125 mg/dL indicate increased risk for diabetes (prediabetes). Fasting plasma glucose results greater than or equal to 126 mg/dL meet the criteria for diagnosis of diabetes. In the absence of unequivocal hyperglycemia, results should be confirmed by repeat testing. In a patient with classic symptoms of hyperglycemia or hyperglycemic crisis, random plasma glucose results greater than or equal to 200 mg/dL meet the criteria for diagnosis of diabetes. Reference: Standards of Medical Care in Diabetes 2016, [place] [employer]. Diabetes Care. 2016.39(Suppl 1). LAB BUN 7-21 mg/dL BUN 12 LAB CRET 0.58-0.96 mg/dL Creatinine Low 0.57 LAB NA 136-144 mmol/L Sodium 136 LAB K 3.7-5.1 mmol/L Potassium 4.2 LAB CL 97-105 mmol/L Chloride 99 LAB CO2 22-30 mmol/L CO2 24 LAB AGAP 9-18 mmol/L Anion Gap 13 LAB ALT 7-38 U/L ALT 15 LAB GFRAA eGFR- Amer. >60 LAB GFRNAA . eGFR-All Other Races >60 Result Comment: eGFR (Estimated GFR) Units of measure: mL/min/1.73 meters squared eGFR is derived from the reexpressed MDRD Study equation using the following parameters: serum creatinine, age, gender and race. The creatinine assay has been calibrated to be traceable to IDMS. An eGFR <60 mL/min/1.73m2 for >3 months is consistent with chronic kidney disease. Refer to KDOQI guidelines for clinical interpretation. In patients with unstable renal function, e.g. those with acute kidney injury, the eGFR may not accurately reflect actual GFR. Performed By: #### CBC, CMP #### [facility] [address] [place], [place] [address] PROGRESS Observed: 06/21/2017 Status: COMPLETED Source: [place] 6:38 AM [facility] REPOSITORY HNO ID: [id number] Author: Laura Nice Service: Cardiac Surgery Author Type: Nurse Practitioner Type: Progress Notes Filed: 06/21/2017 8:57 AM Note Text: [facility] POSTOP PROGRESS NOTE Day of Surgery:06/17/2017 S/P SURGERY: Reoperation, second open heart surgery. Re- resection of subaortic membrane. INTERVAL EVENTS / PERTINENT ROS: No acute events Discharge home today pending ECHO results. Rhythm: NSR Intake/Output Summary (Last 24 hours) at 06/21/17 0857 Last data filed at 06/21/17 0600 Gross per 24 hour Intake 820 ml Output 2075 ml Net -1255 ml EKG: most recent image reviewed, most recent report reviewed TELE: most recent recordings reviewed CXR: most recent image reviewed, most recent report reviewed Echocardiogram: most recent image reviewed, most recent report reviewed PHYSICAL EXAM: BP 117/55 Pulse 81 Temp 37.1 ?C (98.7 ?F) (Oral) Resp 18 Ht 171.5 cm (5' 7.5) Wt (!) 143.2 kg (315 lb 9.6 oz) LMP 05/28/2017 (Exact Date) SpO2 94% BMI 48.7 kg/m2 Neuro: AANDO x 3 moves all extremities with no apparent weakness CV: no jugular venous distention Heart Exam: RRR without murmur, gallop, or rubs. No ectopy. Resp: clear to auscultation bilaterally Abd: The abdomen is soft, nontender, nondistended; BS normal; no masses or organomegaly noted. 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 OR course uncomplicated. Extubated DOS. Post op HTN requiring NTG infusion to maintain MAPS 65-75. Transition to PO BB and wean NTG to off as tolerated. Optimize pain control. Signout: Subaortic membrane resection: asa. Ordered post op ECHO-will be completed today. Rhythm: NSR. V wires removed without incident. Dispo: from [facility]. No anticipated home needs. [facility] d/c today pending ECHO results. [facility] and [facility] requested. Aortic Stenosis History: Repair of a PDA and subvalvular aortic stenosis @ age 10 Assessment: 06/17/2017 Redo sternotomy Subaortic membrane resection Plan: asa.post op ECHO ordered per [facility] Atelectasis History: post OHS Assessment: RA. No issues Plan: Continue OOB, PEP, and optimize pain control Asthma History: h/o asthma Assessment: no wheezing Plan: albuterol PRN. Essential Hypertension History: Not on meds at home Assessment: BP stable Plan: continue lasix and metoprolol Acute Post-Operative Pain History: post OHS Assessment: pain well controlled. Plan: Continue PRN orders. Adjustment Disorder With Mixed Anxiety and Depressed Mood History: on Wellbutrin SR 150mg Assessment: stable Plan: Continue Wellbutrin SR 150 mg PO BID Discharge Planning Issues From [facility]. No anticipated home needs. Will follow up here for [facility] and [facility]- requested. Discharge home today pending ECHO results DAILY STEP DOWN CHECKLIST FOR CATHETER RELATED INFECTION PREVENTION CVC, PICC, Skinny and/or Permacath present? No Does the patient have a urinary catheter beyond POD 2? No VTE Risk Assessment: High risk VTE Mechanical and/or Pharmacologic Prophylaxis: SCD Labs and medications reviewed in Epic Case discussed in depth with: [facility] SIGNATURE: Laura Nice CNP PATIENT NAME: Keily Martin Valery DATE: June 21, 2017 TIME: 6:59 AM PAGER/CONTACT #: [phone] ETX#[id number] PROCEDURE Observed: 06/20/2017 Status: COMPLETED Source: [place] 12:03 PM [facility] REPOSITORY HNO ID: [id number] Author: Laura Nice Service: Cardiac Surgery Author Type: Nurse Practitioner Type: Procedures Filed: 06/20/2017 12:03 PM Note Text: Platelet Count 165 06/20/2017 Platelet Count 167 06/19/2017 Platelet Count 196 06/18/2017 Platelet Count 400 06/11/2017 PT INR 0.9 06/11/2017 rhythm normal sinus rhythm 2 ventricular wires were discontinued without difficulty Ms. Keliy Rasmussen and bedside RN aware of 30 min bedrest restriction Laura Nice CNP PROGRESS Observed: 06/20/2017 Status: COMPLETED Source: [place] 9:29 AM [facility] REPOSITORY O ID: [id number] Author: Celio Villanueva Service: (none) Author Type: (none) Type: Progress Notes Filed: 06/20/2017 9:29 AM Note Text: Radiology Service Progress Note PATIENT NAME: Keily Rasmussen DATE OF SERVICE: June 20, 2017 TIME: 9:29 AM PATIENT IDENTITY VERIFICATION COMPLETED USING TWO (2) METHODS: Patient confirmed name verbally and ID band matches.. PATIENT GENDER DATA: Female. status: : No status: NO. PATIENT RELEVANT IMPLANT DATA REVIEWED: Yes RADIOLOGY DEPARTMENT: General X-ray: Exam(s) Completed: Chest X-Ray PERIPHERAL IV DATA: Not applicable SIGNED BY: Celio Villanueva June 20, 2017 9:29 AM XR CHEST 2V FRONTAL/LAT Observed: 06/20/2017 Status: F Source: [place] 9:25 AM [facility] REPOSITORY * * *Final Report* * * DATE OF EXAM: Jun 20 2017 9:25AM JIX [id number] - XR CHEST 2V FRONTAL/LAT / PROCEDURE REASON: Pneumothorax * * * * Physician Interpretation * * * * EXAMINATION: CHEST RADIOGRAPH (2 VIEW FRONTAL and LATERAL) Clinical History: Pneumothorax M: XC2_3 Comparison: 06/19/2017 RESULT: Lines, tubes, and devices: Interval removal of left chest tube. Lungs and pleura: Mild vascular crowding in both lungs and/or pulmonary vascular redistribution. No consolidations. Small left pleural effusion with tiny left apical pneumothorax. No sizable right pleural effusion and no substantial right pneumothorax. Cardiomediastinal silhouette: Stable cardiomediastinal silhouette. Other: Median sternotomy with stable appearance of sternal wires and retained epicardial pacer leads. IMPRESSION: See body of report. Bridge Tender: PSCB Transcribe Date/Time: Jun 20 2017 10:27A Dictated by : DEEP TOM MD This examination was interpreted and the report reviewed and electronically signed by: DEEP TOM MD on Jun 20 2017 10:28AM EST [id number] [facility] Observed: 06/20/2017 Status: COMPLETED Source: [place] 9:10 AM [facility] REPOSITORY HNO ID: [id number] Author: Royer PhillipsEx Phys) Wang Service: Cardiovascular Medicine Author Type: Photo Print Specialist Type: Allied Health Filed: 06/20/2017 10:42 AM Note Text: CARDIAC REHABILITATION PHASE I FOLLOW-UP PATIENT NAME: Keily Rasmussen SERVICE DATE: June 20, 2017 SESSION TIME: 0910 Comments: Patient amb. ~300 ft. + indep. in hallways last night without specific complaints. Progress as tolerated and outlined in provided activity guidelines. Questions regarding activity and phase 2 cardiac rehab answered to patient's satisfaction. Copy of order for outpatient cardiac rehab provided. Tolerating exercise well, continue with exercise 4 - 6 x/day. Recommend enrollment in Phase 2, Outpatient Cardiac Rehab in 4-6 weeks at local hospital program. Home Program: Provided and reviewed home activity guidelines as outlined below. Frequency: 4 - 6 days/week Intensity: 3 - 4/10 RPE Type: walking - start at 3 - 5 minutes/4 - 6 x day Duration: 20 - 30 minutes -----> 45 + minutes ALEJANDRA Dodson Pager: [phone] June 20, 2017 PROGRESS Observed: 06/20/2017 Status: COMPLETED Source: [place] 6:32 AM [facility] REPOSITORY HNO ID: [id number] Author: Laura Nice Service: Cardiac Surgery Author Type: Nurse Practitioner Type: Progress Notes Filed: 06/20/2017 1:19 PM Note Text: [facility] C[facility] POSTOP PROGRESS NOTE Day of Surgery:06/17/2017 S/P SURGERY: Reoperation, second open heart surgery. Re- resection of subaortic membrane. INTERVAL EVENTS / PERTINENT ROS: 1. V wires d/c'ed without incidence. 3. Post op ECHO ordered. Rhythm: NSR Intake/Output Summary (Last 24 hours) at 06/20/17 1319 Last data filed at 06/20/17 1200 Gross per 24 hour Intake 1000 ml Output 2350 ml Net -1350 ml EKG: most recent image reviewed, most recent report reviewed TELE: most recent recordings reviewed CXR: most recent image reviewed, most recent report reviewed Echocardiogram: most recent image reviewed, most recent report reviewed PHYSICAL EXAM: BP 127/60 Pulse 80 Temp 36.9 ?C (98.5 ?F) (Oral) Resp 18 Ht 171.5 cm (5' 7.5) Wt (!) 143.9 kg (317 lb 4.8 oz) LMP 05/28/2017 (Exact Date) SpO2 92% BMI 48.96 kg/m2 Neuro: AANDO x 3 moves all extremities with no apparent weakness CV: no jugular venous distention Heart Exam: RRR without murmur, gallop, or rubs. No ectopy. Resp: clear to auscultation bilaterally Abd: The abdomen is soft, nontender, nondistended; BS normal; no masses or organomegaly noted. 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 OR course uncomplicated. Extubated DOS. Post op HTN requiring NTG infusion to maintain MAPS 65-75. Transition to PO BB and wean NTG to off as tolerated. Optimize pain control. Signout: Subaortic membrane resection: asa. Ordered post op ECHO FVO: up 4.3kg. Continue IV lasix BID. Rhythm: NSR. V wires removed without incident. Dispo: from [facility]. No anticipated home needs. [facility] d/c tomorrow. [facility] and [facility] requested. Aortic Stenosis History: Repair of a PDA and subvalvular aortic stenosis @ age 10 Assessment: 06/17/2017 Redo sternotomy Subaortic membrane resection Plan: asa. Will need a post op ECHO ordered per CTS Atelectasis History: post OHS Assessment: RA. No issues Plan: Continue OOB, PEP, and optimize pain control. Asthma History: h/o asthma Assessment: no wheezing. Plan: albuterol PRN. Essential Hypertension History: Not on meds at home Assessment: BP stable. Plan: continue IV lasix and metoprolol Acute Post-Operative Pain History: post OHS Assessment: pain well controlled. Plan: Continue PRN orders. Adjustment Disorder With Mixed Anxiety and Depressed Mood History: on Wellbutrin SR 150mg Assessment: stable Plan: Continue Wellbutrin SR 150 mg PO BID Discharge Planning Issues From [facility]. No anticipated home needs. Will follow up here for [facility] and [facility]- requested. Nicotine use disorder, F17.2 DAILY STEP DOWN CHECKLIST FOR CATHETER RELATED INFECTION PREVENTION CVC, PICC, Skinny and/or Permacath present? No Does the patient have a urinary catheter beyond POD 2? No VTE Risk Assessment: High risk VTE Mechanical and/or Pharmacologic Prophylaxis: SCD Labs and medications reviewed in Epic Case discussed in depth with: CTS SIGNATURE: Laura Nice CNP PATIENT NAME: Keily Rasmussen DATE: June 20, 2017 TIME: 6:59 AM PAGER/CONTACT #: [phone] ETX#[id number] CBC Collected: 06/20/2017 Status: F Source: [place] 4:52 AM [facility] REPOSITORY TYPE CODE TESTS RESULT OUT OF REFERENCE UNITS RANGE LAB WBC 3.70-11.00 k/uL WBC 8.71 LAB RBC 3.90-5.20 m/uL Low RBC 2.99 LAB HGB 11.5-15.5 g/dL Low Hemoglobin 7.7 LAB HCT 36.0-46.0 % Low Hematocrit 24.7 LAB MCV 80.0-100.0 fL MCV 82.6 LAB MCH 26.0-34.0 pG Low MCH 25.8 LAB MCHC 30.5-36.0 g/dL MCHC 31.2 LAB RDWCV 11.5-15.0 % RDW-CV 14.9 LAB PLTCT 150-400 k/uL Platelet Count 165 LAB MPV 9.0-12.7 fL MPV 10.6 LAB ABSNUC <0.01 k/uL Absolute nRBC <0.01 Performed By: #### CBC, CMP #### [facility] [address], [place] [address] COMP METABOLIC PANEL Collected: 06/20/2017 Status: F Source: [place] 4:52 AM [facility] REPOSITORY TYPE CODE TESTS RESULT OUT OF REFERENCE UNITS RANGE LAB TP 6.3-8.0 g/dL Low Protein, Total 5.7 LAB ALB 3.9-4.9 g/dL Low Albumin 2.7 LAB CA 8.5-10.2 mg/dL Calcium, Total 8.5 LAB TBIL 0.2-1.3 mg/dL Bilirubin, Total 0.3 LAB ALKP 32-117 U/L Alkaline Phosphatase 52 LAB AST 13-35 U/L Low AST 11 LAB GLU 74-99 mg/dL Low Glucose 73 Result Comment: The [place] Diabetes [employer] (ADA) provides guidance for cutoff values for fasting glucose and random glucose. The ADA defines fasting as no caloric intake for at least 8 hours. Fas ting plasma glucose results between 100 to 125 mg/dL indicate increased risk for diabetes (prediabetes). Fasting plasma glucose results greater than or equal to 126 mg/dL meet the criteria for diagnosis of diabetes. In the absence of unequivocal hyperglycemia, results should be confirmed by repeat testing. In a patient with classic symptoms of hyperglycemia or hyperglycemic crisis, random plasma glucose results greater than or equal to 200 mg/dL meet the criteria for diagnosis of diabetes. Reference: Standards of Medical Care in Diabetes 2016, [place] [employer]. Diabetes Care. 2016.39(Suppl 1). LAB BUN 7-21 mg/dL BUN 11 LAB CRET 0.58-0.96 mg/dL Creatinine 0.62 LAB NA 136-144 mmol/L Sodium 137 LAB K 3.7-5.1 mmol/L Potassium 4.1 LAB CL 97-105 mmol/L Chloride 101 LAB CO2 22-30 mmol/L CO2 27 LAB AGAP 9-18 mmol/L Anion Gap 9 LAB ALT 7-38 U/L ALT 9 LAB GFRAA eGFR- Amer. >60 LAB GFRNAA . eGFR-All Other Races >60 Result Comment: eGFR (Estimated GFR) Units of measure: mL/min/1.73 meters squared eGFR is derived from the reexpressed MDRD Study equation using the following parameters: serum creatinine, age, gender and race. The creatinine assay has been calibrated to be traceable to IDMS. An eGFR <60 mL/min/1.73m2 for >3 months is consistent with chronic kidney disease. Refer to KDOQI guidelines for clinical interpretation. In patients with unstable renal function, e.g. those with acute kidney injury, the eGFR may not accurately reflect actual GFR. Performed By: #### CBC, CMP #### [facility] [address] [place] [id number] CASE MANAGEM Observed: 06/19/2017 Status: COMPLETED Source: [place] 2:54 PM [facility] REPOSITORY HNO ID: [id number] Author: Christine PhillipsRn) FRANKLIN Segovia Service: Care Management Author Type: Registered Nurse Type: Care Mgt Progress Note Filed: 06/19/2017 2:58 PM Note Text: CARE MANAGEMENT PROGRESS NOTE SERVICE DATE: 06/19/2017 SERVICE TIME: 2:50 pm LOS: 2 days Needs Prior to Discharge: To Be Determined Patient is a 22 year old female who on 06/17 had a Redo sternotomy Subaortic membrane resection. CM to follow patient's progress. Anticipate basic needs. SIGNATURE: Christine Segovia RN PATIENT NAME: Keily Rasmussen DATE: June 19, 2017 TIME: 2:54 PM PAGER/CONTACT #: [phone] [facility] Observed: 06/19/2017 Status: COMPLETED Source: [place] 12:39 PM [facility] REPOSITORY HNO ID: [id number] Author: Joaquina PhillipsEx Rupert Higuera Service: Cardiovascular Medicine Author Type: Photo Print Specialist Type: Allied Health Filed: 06/19/2017 12:48 PM Note Text: CARDIAC REHABILITATION PHASE I ASSESSMENT PATIENT NAME: Keily Rasmussen SERVICE DATE: June 19, 2017 SESSION TIME: 11:15am BP HR SpO2 % Flow/Rate L/min Pain (0-10) Supine N/A N/A N/A N/A N/A N/A Seated (edge of bed > 30 sec) Yes 115/51 85 96% ra 3 Sit --> Stand (stand unassisted > 30 sec) Yes N/A 90 N/A ra N/A Ambulation (>10? unassisted) No 121/95 104 96% ra 3 Post N/A N/A N/A N/A N/A N/A Pre-Exercise Assessment 1. Ankle Pumps x 5: Left - Yes Right - Yes 2. Point Pain in Calf: Left - No Right - No 3. Dorsiflex: Left - Yes Right - Yes 4. Overhead Reach x 3: Left - Yes Right - Yes 5. Unstable Sternum: No 6. Shoulder Pain: Left - No Right - No Exercise Distance: ~100 feet Duration: 2-3 minutes Assistance: Standby supervision Device: Walker RECOMMENDATIONS: Ambulate: with supervision Oxygen: without O2 Assist Device: yes - walker COMMENTS: Patient was sitting up in bed upon arrival, willing to ambulate. Patient c/o incisional discomfort, no other c/o voiced. Ambulated steady in the blanco using the walker for assistance. Overall tolerated activity well. Instructed on continued increased ambulation as tolerated 4-6 times per day. Reviewed signs and symptoms of exercise intolerance. Alejandra Lorenz Pager: [phone] June 19, 2017 PROCEDURE Observed: 06/19/2017 Status: COMPLETED Source: [place] 12:01 PM [facility] REPOSITORY HNO ID: [id number] Author: Laura Nice Service: Cardiac Surgery Author Type: Nurse Practitioner Type: Procedures Filed: 06/19/2017 12:01 PM Note Text: Remaining MS CT - < 200 cc serosanguinous drainage out over past 24 hrs. No air leak or SQ emphysema. CXR on waterseal reviewed AND does not demonstrate significant pneumothorax. CT removed - site closed with purse string sutures AND dressed with vasoline gauze. Patient tolerated procedure well. Repeat CXR and review with CTS if needed Laura Nice CNP PROGRESS Observed: 06/19/2017 Status: COMPLETED Source: [place] 9:25 AM [facility] REPOSITORY HNO ID: [id number] Author: Manuel Villanueva Service: (none) Author Type: (none) Type: Progress Notes Filed: 06/19/2017 9:25 AM Note Text: Radiology Service Progress Note PATIENT NAME: Keily Rasmussen DATE OF SERVICE: June 19, 2017 TIME: 9:25 AM PATIENT IDENTITY VERIFICATION COMPLETED USING TWO (2) METHODS: Patient confirmed name verbally and ID band matches.. PATIENT GENDER DATA: Female. status: : No status: NO. PATIENT RELEVANT IMPLANT DATA REVIEWED: Yes RADIOLOGY DEPARTMENT: General X-ray: Exam(s) Completed: Chest X-Ray PERIPHERAL IV DATA: Not applicable SIGNED BY: Manuel Villanueva June 19, 2017 9:25 AM XR CHEST 2V FRONTAL/LAT Observed: 06/19/2017 Status: F Source: [place] 9:19 AM [facility] REPOSITORY * * *Final Report* * * DATE OF EXAM: Jun 19 2017 9:19AM MOHINDER [id number] - XR CHEST 2V FRONTAL/LAT / PROCEDURE REASON: Surgery follow-up * * * * Physician Interpretation * * * * EXAMINATION: CHEST RADIOGRAPH (2 VIEW FRONTAL and LATERAL) Clinical History: Surgery follow-up M: XC2_3 Comparison: 1 day prior RESULT: Lines, tubes, and devices: Right IJ sheath/catheter removed in the interval. Mediastinal drainage chest tube. Temporary epicardial pacer leads/wires noted. Lungs and pleura: Stable to slightly increased lung volume. Small pleural effusions suspected. Left greater than right basilar atelectatic opacities. Improved edema pattern. Cardiomediastinal silhouette: Probably stable enlarged cardiomediastinal silhouette. Other: Lateral view is degraded by respiratory motion. No Upper extremities obscure part of the anterior thorax on the lateral view. Grossly stable skeletal structures otherwise noted. IMPRESSION: Please see body of the report Bridge Tender: PSCB Transcribe Date/Time: Jun 19 2017 11:31A Dictated by : DINA BURNS MD This examination was interpreted and the report reviewed and electronically signed by: DINA BURNS MD on Jun 19 2017 11:33AM EST [id number] PROGRESS Observed: 06/19/2017 Status: COMPLETED Source: [place] 6:59 AM [facility] REPOSITORY HNO ID: [id number] Author: Laura Nice Service: Cardiac Surgery Author Type: Nurse Practitioner Type: Progress Notes Filed: 06/19/2017 1:35 PM Note Text: [facility] CTS POSTOP PROGRESS NOTE Day of Surgery:06/17/2017 S/P SURGERY: Reoperation, second open heart surgery. Re- resection of subaortic membrane. INTERVAL EVENTS / PERTINENT ROS: 1. CT removed. Repeat CXR tomorrow. 2. FVO: up 4.6kg. Continue IV lasix 3. Will need a post op ECHO when wt improves. Rhythm: NSR Intake/Output Summary (Last 24 hours) at 06/19/17 1335 Last data filed at 06/19/17 1149 Gross per 24 hour Intake 1783.7 ml Output 975 ml Net 808.7 ml EKG: most recent image reviewed, most recent report reviewed TELE: most recent recordings reviewed CXR: most recent image reviewed, most recent report reviewed Echocardiogram: most recent image reviewed, most recent report reviewed PHYSICAL EXAM: BP 150/64 Pulse 87 Temp 37.3 ?C (99.1 ?F) (Oral) Resp 18 Wt (!) 144.2 kg (318 lb) LMP 05/28/2017 (Exact Date) SpO2 98% BMI 49.07 kg/m2 Neuro: AANDO x 3 moves all extremities with no apparent weakness CV: no jugular venous distention Heart Exam: RRR without murmur, gallop, or rubs. No ectopy. Resp: clear to auscultation bilaterally Abd: The abdomen is soft, nontender, nondistended; BS normal; no masses or organomegaly noted. 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 OR course uncomplicated. Extubated DOS. Post op HTN requiring NTG infusion to maintain MAPS 65-75. Transition to PO BB and wean NTG to off as tolerated. Optimize pain control. Signout: Subaortic membrane resection: asa. Will need post op ECHO. FVO: up 4.6kg. Started IV lasix BID. CT: MS CT removed, minimal drainage. Repeat CXR tomorrow. Rhythm: NSR. V wires grounded. Dispo: from [facility]. No anticipated home needs. Target d/c 2-3 days. [facility] and [facility] not yet requested. Aortic Stenosis History: Repair of a PDA and subvalvular aortic stenosis @ age 10 Assessment: 06/17/2017 Redo sternotomy Subaortic membrane resection Plan: asa. Will need a post op ECHO ordered per CTS Atelectasis History: post OHS Assessment: RA. No issues Plan: Continue OOB, PEP, and optimize pain control. Asthma History: h/o asthma Assessment: no wheezing. Plan: albuterol PRN. Essential Hypertension History: Not on meds at home Assessment: BP stable. Plan: continue IV lasix and metoprolol Acute Post-Operative Pain History: post OHS Assessment: pain well controlled. Plan: Continue PRN orders. Adjustment Disorder With Mixed Anxiety and Depressed Mood History: on Wellbutrin SR 150mg Assessment: stable Plan: Continue Wellbutrin SR 150 mg PO BID Discharge Planning Issues From [facility]. No anticipated home needs. Will follow up here for [facility] and [facility]-not yet requested. DAILY STEP DOWN CHECKLIST FOR CATHETER RELATED INFECTION PREVENTION CVC, PICC, Skinny and/or Permacath present? No Does the patient have a urinary catheter beyond POD 2? No VTE Risk Assessment: High risk VTE Mechanical and/or Pharmacologic Prophylaxis: SCD Labs and medications reviewed in Epic Case discussed in depth with: CTS SIGNATURE: Laura Nice CNP PATIENT NAME: Keily Rasmussen DATE: June 19, 2017 TIME: 6:59 AM PAGER/CONTACT #: [phone] ETX#[id number] CBC Collected: 06/19/2017 Status: F Source: [place] 6:06 AM [facility] REPOSITORY TYPE CODE TESTS RESULT OUT OF REFERENCE UNITS RANGE LAB WBC 3.70-11.00 k/uL WBC High 13.94 LAB RBC 3.90-5.20 m/uL Low RBC 3.49 LAB HGB 11.5-15.5 g/dL Low Hemoglobin 9.1 LAB HCT 36.0-46.0 % Low Hematocrit 28.2 LAB MCV 80.0-100.0 fL MCV 80.8 LAB MCH 26.0-34.0 pG MCH 26.1 LAB MCHC 30.5-36.0 g/dL MCHC 32.3 LAB RDWCV 11.5-15.0 % RDW-CV 14.9 LAB PLTCT 150-400 k/uL Platelet Count 167 LAB MPV 9.0-12.7 fL MPV 10.1 LAB ABSNUC <0.01 k/uL Absolute nRBC <0.01 Performed By: #### CBC, CMP #### [facility] [address] [place], [place] [address] COMP METABOLIC PANEL Collected: 06/19/2017 Status: F Source: [place] 6:06 AM [facility] REPOSITORY TYPE CODE TESTS RESULT OUT OF REFERENCE UNITS RANGE LAB TP 6.3-8.0 g/dL Low Protein, Total 5.7 LAB ALB 3.9-4.9 g/dL Low Albumin 2.7 LAB CA 8.5-10.2 mg/dL Low Calcium, Total 8.3 LAB TBIL 0.2-1.3 mg/dL Bilirubin, Total 0.5 LAB ALKP 32-117 U/L Alkaline Phosphatase 55 LAB AST 13-35 U/L AST 13 LAB GLU 74-99 mg/dL Glucose 90 Result Comment: The [place] Diabetes [employer] (ADA) provides guidance for cutoff values for fasting glucose and random glucose. The ADA defines fasting as no caloric intake for at least 8 hours. Fas ting plasma glucose results between 100 to 125 mg/dL indicate increased risk for diabetes (prediabetes). Fasting plasma glucose results greater than or equal to 126 mg/dL meet the criteria for diagnosis of diabetes. In the absence of unequivocal hyperglycemia, results should be confirmed by repeat testing. In a patient with classic symptoms of hyperglycemia or hyperglycemic crisis, random plasma glucose results greater than or equal to 200 mg/dL meet the criteria for diagnosis of diabetes. Reference: Standards of Medical Care in Diabetes 2016, [place] [employer]. Diabetes Care. 2016.39(Suppl 1). LAB BUN 7-21 mg/dL BUN 7 LAB CRET 0.58-0.96 mg/dL Creatinine Low 0.56 LAB NA 136-144 mmol/L Sodium Low 135 LAB K 3.7-5.1 mmol/L Potassium 4.4 LAB CL 97-105 mmol/L Chloride 101 LAB CO2 22-30 mmol/L CO2 24 LAB AGAP 9-18 mmol/L Anion Gap 10 LAB ALT 7-38 U/L ALT 14 LAB GFRAA eGFR- Amer. >60 LAB GFRNAA . eGFR-All Other Races >60 Result Comment: eGFR (Estimated GFR) Units of measure: mL/min/1.73 meters squared eGFR is derived from the reexpressed MDRD Study equation using the following parameters: serum creatinine, age, gender and race. The creatinine assay has been calibrated to be traceable to IDMS. An eGFR <60 mL/min/1.73m2 for >3 months is consistent with chronic kidney disease. Refer to KDOQI guidelines for clinical interpretation. In patients with unstable renal function, e.g. those with acute kidney injury, the eGFR may not accurately reflect actual GFR. Performed By: #### CBC, CMP #### [facility] [address] [address] NURSING PROG Observed: 06/18/2017 Status: COMPLETED Source: [place] 7:00 PM [facility] REPOSITORY HNO ID: [id number] Author: Destiny Glez (Rn) FRANKLIN Mcdonald Service: (none) Author Type: Registered Nurse Type: Nursing Progress Note Filed: 06/18/2017 8:08 PM Note Text: Nursing Progress Note Patient Name: Keily Rasmussen [id number] Transfer Note: Patient transferred into room/unit J51-14 in stable condition. Actions taken: Pt oriented to room and call light. Falls video played and viewed by pt. Dual skin check with FRANKLIN Marsh. No skin breakdown noted. Pt informed to call before getting of out bed. Bed alarm on. Yellow non skid socks on. No further actions taken. Will continue to monitor patient. This note was completed by: Destiny Mcdonald RN PT ED Observed: 06/18/2017 Status: COMPLETED Source: [place] 5:44 PM [facility] REPOSITORY HNO ID: [id number] Author: [facility] Provider Service: (none) Author Type: Physician Type: Patient Education Filed: 06/18/2017 5:44 PM Note Text: [facility] Patient Education Report --------- Name: KEILY RASMUSSEN Date: 06/18/2017 Time: 5:44 PM Patient Ordered Video: Inpatient Falls from [id number] via phone number [phone] at 5:44 PM CASE MGT INIT Observed: 06/18/2017 Status: COMPLETED [facility] REPOSITORY HNO ID: [id number] Author: Natalie (Rn) FRANKLIN Rothman Service: Case Management Author Type: Registered Nurse Type: Care Mgt Initial Assessment Filed: 06/18/2017 11:56 AM Note Text: CARE MANAGEMENT: ASSESSMENT AND DISCHARGE PLAN SERVICE DATE: 06/18/2017 SERVICE TIME: 11:51 AM PRIMARY CARE PHYSICIAN: Jos Barnes MD ADMISSION STATUS: Inpatient POTENTIAL DISCHARGE PLANS Home Home Care To Be Determined 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 Needs Prior to Discharge: To Be Determined Health Insurance: [employer] Medicaid Living Arrangement: Home Lives With: Mother Financial Resources: Disabled Primary Contact: Extended Emergency Contact Information Primary Emergency Contact: Kathy Rasmussen Relation: Mother Secondary Emergency Contact: Chelsea Correa Relation: Sister Supportive: Yes Other Important Patient Contacts: None CAREGIVER ASSESSMENT: Caregiver is ready, willing and able to meet the patient's needs as recommended by the inter-professional team? No Caregiver Needed Patient's transition needs and plan for meeting these needs: pending POC. Does the patient have an acute stroke diagnosis, or has the patient had a stroke during this admission? No ADVANCE DIRECTIVES: Does Patient Have Advance Directives? No, Patient refused Does Patient Have Concerns About Advance Directives? No PRIOR TO ADMISSION: Baseline Mental Status: Alert AND Oriented, Person, Place , Time and Situation Functional Status: Independent Does Patient Currently Receive Any Community Services or Home Care? None Equipment Prior to Admission: None HEALTH: Health Issues Impacting Discharge Plan: None Health Literacy Issues: No PSYCHOSOCIAL: Is the Patient Psychosocially Complex? No Family/Patient Understanding of Illness/Diagnosis: Patient understands her medical diagnosis Medication Adherence: Do you forget to take your medications? I do not forget to take my medication Have you ever stopped taking medications because you felt worse? None of the time Have you ever taken less of your medication than what was prescribed by your doctor? None of the time In the past 3 months, have you had issues obtaining one or more of your medications? None of the time Are you interested in bedside delivery of your medications? No Food Concerns: In the Last Month, Have You had Trouble Getting Food? No trouble getting food During the Last Month, Have You Worried Whether Your Food Would Run Out Before You Had Enough Money to Buy More? No Psychosocial Needs: None UTILIZATION: Last Admission Date: none Is this Within the Past 30 days? No Has the Patient Been in a Jail Facility in the Past 30 days? No FREEDOM OF CHOICE EXPLAINED: N/A HANDOFF COMMUNICATION: via shared medical record. 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 CM anticipates basic discharge needs. SIGNATURE: Natalie Rothman RN PATIENT NAME: Keily Rasmussen DATE: June 18, 2017 TIME: 11:51 AM PAGER/CONTACT #: [phone] PROGRESS Observed: 06/18/2017 Status: COMPLETED Source: [place] 9:09 AM [facility] REPOSITORY [facility] ID: [id number] Author: Laura Rodriguez Service: Critical Care Author Type: Nurse Practitioner Type: Progress Notes Filed: 06/18/2017 9:12 AM Note Text: [facility] CVICU Note Name: Keily Rasmussen Coordination of Care Note: Indication for Surgery: Subaortic membrane LVEF: 71% RVF: Normal Important/Relevant PMH/PSH: Subaortic membrane, 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 OR course uncomplicated. Extubated DOS. Post op HTN requiring NTG infusion to maintain MAPS 65-75. Transition to PO BB and wean NTG to off as tolerated. Optimize pain control. Issues to communicate at signout: Discharge Planning: Anticipated Discharge Date: Unknown Unknown Care Management Discharge Needs: Other Problems I Reviewed and/or Managed During This Encounter: Problem Aortic Stenosis History: Repair of a PDA and subvalvular aortic stenosis @ age 10 06/17/2017 Redo sternotomy Subaortic membrane resection A/P: ASA Atelectasis A/P: Post op atelectasis. Oxygenation stable on 2 L NC. Continue OOB, PEP, and optimize pain control. Asthma A/P: No wheezing on exam. Albuterol PRN. Essential Hypertension A/P: Post op HTN requiring NTG infusion to maintain MAPS 65-75. Uptitrate PO BB, and transition off NTG as tolerated. Acute Post-Operative Pain A/P: Pain control adequate. 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 Adjustment Disorder With Mixed Anxiety and Depressed Mood A/P: Continue Wellbutrin SR 150 mg PO BID PHYSICAL EXAM: Neuro: Awake, Follows commands, Alert and oriented x 3 and BACH Cardiovascular: Rhythm: regular rate and rhythm and Rate:normal sinus rhythm Pulmonary: Clear to auscultation, Breath sounds equal and Diminished breath sounds, bilateral bases Ventilator: N/A, patient is extubated CXR Findings: Atelectasis Bilateral and CXR personally viewed and interpreted by ICU staff Nurse Practitioner Gastrointestinal: Abdominal: Soft and Non-tender DAILY CVICU CHECKLIST VTE Prophylaxis: Pharmacologic Yes VTE Prophylaxis: Mechanical: Yes Line infection prevention: Can CVC, PAC or arterial line be removed: Yes - Remove arterial line and Remove Central venous catheter Continued need for urinary catheter: Yes - clinical indication: Patient post major surgery requiring fluid balance and input and output measurement. Restraints needed: No SIGNATURE: Laura Rodriguez CNP DATE of SERVICE: 06/18/2017 TIME of SERVICE: 9:09 AM GASA + ALL Collected: 06/18/2017 Status: F Source: [place] FOR 9:08 AM [facility] USE ONLY REPOSITORY TYPE CODE TESTS RESULT OUT OF REFERENCE UNITS RANGE LAB PH 7.35-7.45 pH 7.38 LAB PCO2 34-46 mm Hg pCO2 39 LAB PO2 85-95 mm Hg pO2 91 LAB BE mmol/L Base Excess NEG 2 LAB HCO3 22-26 mmol/L Bicarbonate 23 LAB CO2CT 22.0-28.0 mmol/L CO2 Content 24 LAB O2HB 95-98 % Oxyhemoglobin, Art. 95 LAB COHB 0-5.0 % Carboxyhemoglobin,A 2.4 rt LAB MHGB 0.4-1.5 % Methemoglobin 0.7 LAB TEMP C Temperature, Body 37.0 LAB PHTC 7.35-7.45 pH, Temp Corrected 7.38 LAB PCO2T 34-46 mm Hg pCO2, Temp Correct 39 LAB PO2T mm Hg pO2, Temp Corrected 91 LAB NAB 132-148 mmol/L Sodium,Whole Bld 134 LAB KWB 3.5-5.0 mmol/L Potassium, Whole Bld 3.8 LAB HGBB 11.5-15.5 g/dL Low Hemoglobin,Total,AC 9.9 L LAB HCTB 36.0-46.0 % Hematocrit, ACL Low 31 LAB IC 1.08-1.30 mmol/L Calcium, Ion, WB 1.20 LAB GLB 60-105 mg/dL Glucose,Whole Bld 103 LAB LACT 0.5-2.2 mmol/L Lactate 1.0 Performed By: #### ALLBG #### [facility] [address] [place], [place] [address] GASA + ALL Collected: 06/18/2017 Status: F Source: [place] FOR 6:35 AM [facility] USE ONLY REPOSITORY TYPE CODE TESTS RESULT OUT OF REFERENCE UNITS RANGE LAB PH 7.35-7.45 pH 7.38 LAB PCO2 34-46 mm Hg pCO2 41 LAB PO2 85-95 mm Hg pO2 High 119 LAB BE mmol/L Base Excess NEG 1 LAB HCO3 22-26 mmol/L Bicarbonate 24 LAB CO2CT 22.0-28.0 mmol/L CO2 Content 25 LAB O2HB 95-98 % Oxyhemoglobin, Art. 97 LAB COHB 0-5.0 % Carboxyhemoglobin,A 2.2 rt LAB MHGB 0.4-1.5 % Methemoglobin Low 0.2 LAB TEMP C Temperature, Body 37.0 LAB PHTC 7.35-7.45 pH, Temp Corrected 7.38 LAB PCO2T 34-46 mm Hg pCO2, Temp Correct 41 LAB PO2T mm Hg pO2, Temp Corrected 119 LAB NAB 132-148 mmol/L Sodium,Whole Bld 132 LAB KWB 3.5-5.0 mmol/L Potassium, Whole Bld 4.0 LAB HGBB 11.5-15.5 g/dL Low Hemoglobin,Total,AC 10.2 L LAB HCTB 36.0-46.0 % Hematocrit, ACL Low 32 LAB IC 1.08-1.30 mmol/L Calcium, Ion, WB 1.21 LAB GLB 60-105 mg/dL Glucose,Whole Bld High 117 LAB LACT 0.5-2.2 mmol/L Lactate 1.2 Performed By: #### ALLBG #### [facility] [address] [place], [place] [address] XR CHEST 1V FRONTAL Observed: 06/18/2017 Status: F Source: [facility] 3:13 AM [facility] REPOSITORY * * *Final Report* * * DATE OF EXAM: Jun 18 2017 3:13AM JIX [id number] - XR CHEST 1V FRONTAL PORT / PROCEDURE REASON: Status post cardiac surgery * * * * Physician Interpretation * * * * EXAMINATION: CHEST RADIOGRAPH (PORTABLE SINGLE VIEW AP) Exam Date/Time: 06/18/2017 3:13 AM Clinical History: Status post cardiac surgery M: XCP_3 Comparison: 1 day prior RESULT: See impression. IMPRESSION: Lines, tubes, and devices: The patient is status post median sternotomy. There has been interval removal of the endotracheal and nasogastric tubes. Right IJ venous catheter terminates in the proximal right atrium. Left chest tube is likely unchanged. Lungs and pleura: Small bilateral pleural effusions are noted, left greater than right, with adjacent atelectasis. Patchy reticular opacities are noted, likely related to pulmonary edema. No definite pneumothorax is noted. Cardiomediastinal silhouette: Cardiac silhouette is enlarged with pulmonary venous congestion. Other: Bridge Tender: MAYURI Transcribe Date/Time: Jun 18 2017 8:03A Dictated by : PREMA NORMAN MD This examination was interpreted and the report reviewed and electronically signed by: PREMA NORMAN MD on Jun 18 2017 8:05AM EST [id number] Collected: 06/18/2017 Status: F Source: [place] 2:09 AM [facility] REPOSITORY TYPE CODE TESTS RESULT OUT OF REFERENCE UNITS RANGE LAB TROPT 0.000-0.029 ng/mL High Troponin T 0.219 Result Comment: Called to and read back by: Bubba Andino RN J56 06/18/2017 0434 by Eloy Abarca. Performed By: #### CARISA #### [facility] [address] [place], [place] [address] [employer] PCR Collected: 06/18/2017 Status: F Source: [place] 2:09 AM [facility] REPOSITORY TYPE CODE TESTS RESULT OUT OF REFERENCE UNITS RANGE LAB SASRC Nasal S aureus Spec Source LAB MRSRES Negative for MRSA MRSA by PCR. PCR LAB SARES Negative for Staph Staphylococcus aureus PCR aureus by PCR. Result Comment: Performance characteristics of this assay for testing specimens from patients <=21 years of age were determined by [facility]'s Patrick Thacker [facility] [place] ([facility]). Performance on this age group has not been approved by the FDA. [facility] is regulated under CLIA as qualified to perform high complexity testing. This test is used for clinical purposes. It should not be regarded as investigational or for research. Performed By: #### SAPCR #### [facility] [address], [place] [address] COMP METABOLIC PANEL Collected: 06/18/2017 Status: F Source: [place] 12:10 AM [facility] REPOSITORY TYPE CODE TESTS RESULT OUT OF REFERENCE UNITS RANGE LAB TP 6.3-8.0 g/dL Low Protein, Total 4.9 LAB ALB 3.9-4.9 g/dL Low Albumin 2.7 LAB CA 8.5-10.2 mg/dL Low Calcium, Total 7.8 LAB TBIL 0.2-1.3 mg/dL Bilirubin, Total 0.8 LAB ALKP 32-117 U/L Alkaline Phosphatase 56 LAB AST 13-35 U/L AST 27 LAB GLU 74-99 mg/dL Glucose High 106 Result Comment: The [place] Diabetes [employer] (ADA) provides guidance for cutoff values for fasting glucose and random glucose. The ADA defines fasting as no caloric intake for at least 8 hours. Fas ting plasma glucose results between 100 to 125 mg/dL indicate increased risk for diabetes (prediabetes). Fasting plasma glucose results greater than or equal to 126 mg/dL meet the criteria for diagnosis of diabetes. In the absence of unequivocal hyperglycemia, results should be confirmed by repeat testing. In a patient with classic symptoms of hyperglycemia or hyperglycemic crisis, random plasma glucose results greater than or equal to 200 mg/dL meet the criteria for diagnosis of diabetes. Reference: Standards of Medical Care in Diabetes 2016, [place] [employer]. Diabetes Care. 2016.39(Suppl 1). LAB BUN 7-21 mg/dL BUN 7 LAB CRET 0.58-0.96 mg/dL Creatinine Low 0.55 LAB NA 136-144 mmol/L Sodium Low 133 LAB K 3.7-5.1 mmol/L Potassium 4.4 LAB CL 97-105 mmol/L Chloride 101 LAB CO2 22-30 mmol/L CO2 24 LAB AGAP 9-18 mmol/L Anion Gap Low 8 LAB ALT 7-38 U/L ALT 15 LAB GFRAA eGFR- Amer. >60 LAB GFRNAA . eGFR-All Other Races >60 Result Comment: eGFR (Estimated GFR) Units of measure: mL/min/1.73 meters squared eGFR is derived from the reexpressed MDRD Study equation using the following parameters: serum creatinine, age, gender and race. The creatinine assay has been calibrated to be traceable to IDMS. An eGFR <60 mL/min/1.73m2 for >3 months is consistent with chronic kidney disease. Refer to KDOQI guidelines for clinical interpretation. In patients with unstable renal function, e.g. those with acute kidney injury, the eGFR may not accurately reflect actual GFR. Performed By: #### CMP, CBC #### [facility] [address] [place], [place] [address] CBC Collected: 06/18/2017 Status: F Source: [place] 12:10 AM [facility] REPOSITORY TYPE CODE TESTS RESULT OUT OF REFERENCE UNITS RANGE LAB WBC 3.70-11.00 k/uL WBC High 15.04 LAB RBC 3.90-5.20 m/uL RBC 3.98 LAB HGB 11.5-15.5 g/dL Low Hemoglobin 10.4 LAB HCT 36.0-46.0 % Low Hematocrit 32.2 LAB MCV 80.0-100.0 fL MCV 80.9 LAB MCH 26.0-34.0 pG MCH 26.1 LAB MCHC 30.5-36.0 g/dL MCHC 32.3 LAB RDWCV 11.5-15.0 % RDW-CV 14.8 LAB PLTCT 150-400 k/uL Platelet Count 196 LAB MPV 9.0-12.7 fL MPV 10.4 LAB ABSNUC <0.01 k/uL Absolute nRBC <0.01 Performed By: #### CMP, CBC #### [facility] [address] [place], [place] [address] GASA + ALL Collected: 06/17/2017 Status: F Source: [place] FOR 11:45 PM [facility] USE ONLY REPOSITORY TYPE CODE TESTS RESULT OUT OF REFERENCE UNITS RANGE LAB PH 7.35-7.45 pH 7.39 LAB PCO2 34-46 mm Hg pCO2 42 LAB PO2 85-95 mm Hg pO2 91 LAB BE mmol/L Base Excess 0 LAB HCO3 22-26 mmol/L Bicarbonate 25 LAB CO2CT 22.0-28.0 mmol/L CO2 Content 26 LAB O2HB 95-98 % Oxyhemoglobin, Art. 96 LAB COHB 0-5.0 % Carboxyhemoglobin,A 1.9 rt LAB MHGB 0.4-1.5 % Methemoglobin 0.6 LAB TEMP C Temperature, Body 37.0 LAB PHTC 7.35-7.45 pH, Temp Corrected 7.39 LAB PCO2T 34-46 mm Hg pCO2, Temp Correct 42 LAB PO2T mm Hg pO2, Temp Corrected 91 LAB NAB 132-148 mmol/L Sodium,Whole Bld 132 LAB KWB 3.5-5.0 mmol/L Potassium, Whole Bld 4.2 LAB HGBB 11.5-15.5 g/dL Low Hemoglobin,Total,AC 10.3 L LAB HCTB 36.0-46.0 % Hematocrit, ACL Low 32 LAB IC 1.08-1.30 mmol/L Calcium, Ion, WB 1.19 LAB GLB 60-105 mg/dL Glucose,Whole Bld High 112 LAB LACT 0.5-2.2 mmol/L Lactate 1.0 Performed By: #### ALLBG #### [facility] [address], [place] [address] GASA + ALL Collected: 06/17/2017 Status: F Source: [place] FOR 7:18 PM [facility] RADIANCE USE ONLY REPOSITORY TYPE CODE TESTS RESULT OUT OF REFERENCE UNITS RANGE LAB PH 7.35-7.45 pH 7.40 LAB PCO2 34-46 mm Hg pCO2 41 LAB PO2 85-95 mm Hg pO2 High 109 LAB BE mmol/L Base Excess 0 LAB HCO3 22-26 mmol/L Bicarbonate 25 LAB CO2CT 22.0-28.0 mmol/L CO2 Content 26 LAB O2HB 95-98 % Oxyhemoglobin, Art. 96 LAB COHB 0-5.0 % Carboxyhemoglobin,A 1.5 rt LAB MHGB 0.4-1.5 % Methemoglobin 0.9 LAB TEMP C Temperature, Body 37.0 LAB PHTC 7.35-7.45 pH, Temp Corrected 7.40 LAB PCO2T 34-46 mm Hg pCO2, Temp Correct 41 LAB PO2T mm Hg pO2, Temp Corrected 109 LAB NAB 132-148 mmol/L Sodium,Whole Bld 135 LAB KWB 3.5-5.0 mmol/L Potassium, Whole Bld 4.0 LAB HGBB 11.5-15.5 g/dL Low Hemoglobin,Total,AC 10.5 L LAB HCTB 36.0-46.0 % Hematocrit, ACL Low 32 LAB IC 1.08-1.30 mmol/L Calcium, Ion, WB 1.17 LAB GLB 60-105 mg/dL Glucose,Whole Bld High 110 LAB LACT 0.5-2.2 mmol/L Lactate 1.3 Performed By: #### ALLBG #### [facility] [address], [place] [address] GASA + ALL Collected: 06/17/2017 Status: F Source: [place] FOR 5:29 PM [facility] RADIANCE USE ONLY REPOSITORY TYPE CODE TESTS RESULT OUT OF REFERENCE UNITS RANGE LAB PH 7.35-7.45 pH Low 7.34 LAB PCO2 34-46 mm Hg pCO2 High 47 LAB PO2 85-95 mm Hg pO2 High 135 LAB BE mmol/L Base Excess NEG 1 LAB HCO3 22-26 mmol/L Bicarbonate 25 LAB CO2CT 22.0-28.0 mmol/L CO2 Content 26 LAB O2HB 95-98 % Oxyhemoglobin, Art. 97 LAB COHB 0-5.0 % Carboxyhemoglobin,A 1.4 rt LAB MHGB 0.4-1.5 % Methemoglobin 0.8 LAB TEMP C Temperature, Body 37.0 LAB PHTC 7.35-7.45 pH, Temp Low Corrected 7.34 LAB PCO2T 34-46 mm Hg pCO2, Temp High Correct 47 LAB PO2T mm Hg pO2, Temp Corrected 135 LAB NAB 132-148 mmol/L Sodium,Whole Bld 135 LAB KWB 3.5-5.0 mmol/L Potassium, Whole Bld 4.0 LAB HGBB 11.5-15.5 g/dL Low Hemoglobin,Total,AC 10.9 L LAB HCTB 36.0-46.0 % Hematocrit, ACL Low 34 LAB IC 1.08-1.30 mmol/L Calcium, Ion, WB 1.20 LAB GLB 60-105 mg/dL Glucose,Whole Bld High 110 LAB LACT 0.5-2.2 mmol/L Lactate 1.2 Performed By: #### ALLBG #### [facility] [address] [place], [place] [address] ANES POST Observed: 06/17/2017 Status: COMPLETED Source: [place] 4:53 PM [facility] REPOSITORY HNO ID: [id number] Author: Chance López Service: (none) Author Type: Anesthesiologist Type: Anesthesia PostOp Filed: 06/17/2017 4:56 PM Note Text: POST ANESTHESIA EVALUATION NOTE SERVICE DATE: 06/17/2017 SERVICE TIME: 1653 : 1997 Vitals: 06/17/17 0553 06/17/17 1340 Temp: 36.7 ?C (98.1 ?F) (!) 35.9 ?C (96.6 ?F) 06/17/17 1530 06/17/17 1550 06/17/17 1610 06/17/17 1630 Arterial BP 1: 128/64 121/59 129/64 113/56 BP: 06/17/17 1530 06/17/17 1550 06/17/17 1610 06/17/17 1630 Pulse: 92 90 94 93 06/17/17 0553 06/17/17 1340 06/17/17 1350 06/17/17 1410 Resp: 18 22 22 22 06/17/17 1530 06/17/17 1550 06/17/17 1610 06/17/17 1630 SpO2: 100% 100% 100% 100% Validated Vital Signs: See HVI Accordion POST ANES STATUS: PACU/ICU Patient Condition: Stable Neurological Status: On intravenous sedation. Pulmonary Status: On invasive mechanical ventilation. Airway Control: Intubated on mechanical ventilation. Cardiovascular Status: Stable Pain: Adequately controlled Postoperative Nausea/Vomiting: Sedated Postoperative Hydration Status: Adequate. Anesthetic Complications: None Recommendation: Continue current plan of care / CVICU staff Other Remarks: SIGNATURE: Chance López MD PATIENT NAME: Keily Rasmussen DATE: June 17, 2017 TIME: 4:53 PM PAGER/CONTACT #: [phone] XR CHEST 1V FRONTAL Observed: 06/17/2017 Status: F Source: [facility] 2:37 PM [facility] REPOSITORY * * *Final Report* * * DATE OF EXAM: Jun 17 2017 2:37PM MOHINDER [id number] - XR CHEST 1V FRONTAL PORT / PROCEDURE REASON: Status post cardiac surgery * * * * Physician Interpretation * * * * EXAMINATION: CHEST RADIOGRAPH (PORTABLE SINGLE VIEW AP) Exam Date/Time: 06/17/2017 2:37 PM Clinical History: Status post cardiac surgery M: XCP_3 Comparison: None available RESULT: See impression. IMPRESSION: Lines, tubes, and devices: Patient is status post median sternotomy with ET tube, nasogastric tube, right IJ central venous catheter and mediastinal drain. Lungs and pleura: There is mild pulmonary venous congestion. No substantial pleural effusions or large pneumothorax is identified. Cardiomediastinal silhouette: The cardiomediastinal silhouette is mildly enlarged. Patient is status post PDA closure. Curvilinear lucency likely secondary to postoperative pneumomediastinum circumscribes the left border of the heart. Other: Bridge Tender: MAYURI Transcribe Date/Time: Jun 17 2017 2:58P Dictated by : ARNAUD JACINTO MD This examination was interpreted and the report reviewed and electronically signed by: ARNAUD JACINTO MD on Jun 17 2017 2:59PM EST [id number] [id number] Observed: 06/17/2017 Status: COMPLETED Source: [place] 2:30 PM [facility] REPOSITORY HNO ID: [id number] Author: Laura Rodriguez Service: Critical Care Author Type: Nurse Practitioner Type: Progress Notes Filed: 06/17/2017 2:47 PM Note Text: [facility] Admission Note Name: Keily Rasmussen Principal Diagnosis: Aortic stenosis Indication for Surgery: Subaortic membrane LVEF: 71% RVF: Normal Important/Relevant PMH/PSH: Subaortic membrane, 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 OR course uncomplicated. WTE. IVF resuscitation and pain control Issues to communicate at signout: WTE Discharge Planning: Anticipated Discharge Date: Unknown Unknown Care Management Discharge Needs: Additional Hospital Problems Problem Aortic Stenosis History: Repair of a PDA and subvalvular aortic stenosis @ age 10 06/17/2017 Redo sternotomy Subaortic membrane resection A/P: ASA On Mechanically Assisted Ventilation (Hcc) A/P: Grade I Airway. WTE Atelectasis A/P: Post op atelectasis. WTE. Initiate PEP And optimize pain control upon extubation. Asthma A/P: No wheezing on exam. Albuterol PRN. Acute Post-Operative Pain A/P: Appears comfortable. 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 Adjustment Disorder With Mixed Anxiety and Depressed Mood A/P: Resume Wellbutrin SR 150 mg PO BID Hypovolemia A/P: Post op fluid shifts. IVF Resuscitation as needed Infusions: Propofol CVICU Admission ECG: Reviewed CVICU Admission CXR: Reviewed Neuro: Sedation . Cardiovascular: Rhythm: regular rate and rhythm and Rate:normal sinus rhythm MAP: 81 mmHg Pacemaker : Temporary Epicardial - Pacing Mode: OFF ICD: No Peripheral pulses present: All present Pulmonary: Clear to auscultation, Breath sounds equal and Diminished breath sounds, bilateral bases Ventilator: Intubated Potential prolonged intubation : No Abdominal: Soft Continued need for urinary catheter: Yes - clinical indication: Patient post major surgery requiring fluid balance and input and output measurement. DAY OF SURGERY PLAN: Standard Protocol, intubated patient: Cardiovascular monitoring, stabilization of blood pressure and cardiac function, wean to extubate when ready per protocol. Pain control, glycemic control, DVT prophylaxis, antibiotic prophylaxis. SIGNATURE: Laura Rodriguez CNP DATE of SERVICE: 06/17/2017 TIME of SERVICE: 2:30 PM GASA + ALL Collected: 06/17/2017 Status: F Source: [place] FOR 2:28 PM [facility] USE ONLY REPOSITORY TYPE CODE TESTS RESULT OUT OF REFERENCE UNITS RANGE LAB PH 7.35-7.45 pH 7.41 LAB PCO2 34-46 mm Hg pCO2 36 LAB PO2 85-95 mm Hg pO2 High 111 LAB BE mmol/L Base Excess NEG 2 LAB HCO3 22-26 mmol/L Bicarbonate 22 LAB CO2CT 22.0-28.0 mmol/L CO2 Content 23 LAB O2HB 95-98 % Oxyhemoglobin, Art. 96 LAB COHB 0-5.0 % Carboxyhemoglobin,A 2.2 rt LAB MHGB 0.4-1.5 % Methemoglobin 0.9 LAB TEMP C Temperature, Body 37.0 LAB PHTC 7.35-7.45 pH, Temp Corrected 7.41 LAB PCO2T 34-46 mm Hg pCO2, Temp Correct 36 LAB PO2T mm Hg pO2, Temp Corrected 111 LAB NAB 132-148 mmol/L Sodium,Whole Bld 135 LAB KWB 3.5-5.0 mmol/L Potassium, Whole Bld 3.8 LAB HGBB 11.5-15.5 g/dL Hemoglobin,Total,AC 11.5 L LAB HCTB 36.0-46.0 % Hematocrit, ACL Low 35 LAB IC 1.08-1.30 mmol/L Calcium, Ion, WB 1.20 LAB GLB 60-105 mg/dL Glucose,Whole Bld High 109 LAB LACT 0.5-2.2 mmol/L Lactate 1.5 Performed By: #### ALLBG #### [facility] [address] [place], [place] [address] STAPH AUREUS PCR Collected: 06/17/2017 Status: F Source: [place] 2:20 PM [facility] REPOSITORY TYPE CODE TESTS RESULT OUT OF REFERENCE UNITS RANGE LAB SASRC Nasal S aureus Spec Source LAB MRSRES Negative for MRSA MRSA by PCR. PCR LAB SARES Negative for Staph Staphylococcus aureus PCR aureus by PCR. Result Comment: Performance characteristics of this assay for testing specimens from patients <=21 years of age were determined by [facility]'s [facility] [place] ([facility]). Performance on this age group has not been approved by the FDA. [facility] is regulated under CLIA as qualified to perform high complexity testing. This test is used for clinical purposes. It should not be regarded as investigational or for research. Performed By: #### SAPCR #### [facility] [address] [place], [place] [address] BRIEF OP NOT Observed: 06/17/2017 Status: COMPLETED Source: [place] 1:02 PM [facility] REPOSITORY HNO ID: [id number] Author: Perico Enamorado) Stoddard Service: Cardiac Surgery Author Type: Fellow Type: Brief Op Note Filed: 06/18/2017 5:00 AM Note Text: CARDIOTHORACIC BRIEF OP NOTE LOG ID: [id number] SURGERY/PROCEDURE DATE: 06/17/2017 INCISION/PROCEDURE START TIME: 8:16 AM INCISION CLOSE/PROCEDURE END TIME: SURGEON(S) AND ENVIRONMENTAL COMPLIANCE TECHNICIAN(S): Surgeon(s) and Role: * Alberto Umana - Primary * Perico (Ulises) Stoddard - Fellow Registered Nurse Technical Services Coordinator: Taisha Kenny) THOMPSON Chavarria; Leeanne Fontenot (Rn) FRANKLIN GonsalezTIN CUTTER AND ANESTHESIA: Procedure(s) and Anesthesia Type: * RESECT / INCISE SUBVALVAR TISSUE FOR DISCRETE SUBVALVULAR AORTIC STENOSIS - General * REDO AORTIC VALVE REPAIR/REPLACEMENT-ON PUMP - General Redo sternotomy Subaortic membrane resection ANESTHESIA: General BRIEF FINDINGS: Circumferential subaortic membrane. Post resection PG peak/mean=11/6 2v wires to be pulled 1 mediastinal chest tube PREOPERATIVE DIAGNOSIS: Subaortic membrane POSTOPERATIVE DIAGNOSIS: Subaortic membrane ESTIMATED BLOOD LOSS: 500 ml SPECIMENS: subaortic membrane COMPLICATIONS: None SIGNATURE: Perico Stoddard MD PATIENT NAME: Keily Rasmussen DATE: June 17, 2017 TIME: 1:02 PM PAGER/CONTACT #: [phone] GASA + ALL Collected: 06/17/2017 Status: F Source: [place] FOR 12:30 PM [facility] USE ONLY REPOSITORY TYPE CODE TESTS RESULT OUT OF REFERENCE UNITS RANGE LAB PH 7.35-7.45 pH 7.39 LAB PCO2 34-46 mm Hg pCO2 41 LAB PO2 85-95 mm Hg pO2 High 291 LAB BE mmol/L Base Excess 0 LAB HCO3 22-26 mmol/L Bicarbonate 24 LAB CO2CT 22.0-28.0 mmol/L CO2 Content 26 LAB O2HB 95-98 % Oxyhemoglobin, Art. 97 LAB COHB 0-5.0 % Carboxyhemoglobin,A 1.6 rt LAB MHGB 0.4-1.5 % Methemoglobin 0.9 LAB TEMP C Temperature, Body 37.0 LAB PHTC 7.35-7.45 pH, Temp Corrected 7.39 LAB PCO2T 34-46 mm Hg pCO2, Temp Correct 41 LAB PO2T mm Hg pO2, Temp Corrected 291 LAB NAB 132-148 mmol/L Sodium,Whole Bld Low 129 LAB KWB 3.5-5.0 mmol/L Potassium, Whole Bld 3.6 LAB HGBB 11.5-15.5 g/dL Low Hemoglobin,Total,AC 11.1 L LAB HCTB 36.0-46.0 % Hematocrit, ACL Low 34 LAB IC 1.08-1.30 mmol/L Calcium, Ion, WB Low 1.04 LAB GLB 60-105 mg/dL Glucose,Whole Bld High 118 LAB LACT 0.5-2.2 mmol/L Lactate 2.2 Performed By: #### ALLBG #### [facility] [address] [place], [place] [address] GASA + ALL Collected: 06/17/2017 Status: F Source: [place] FOR 11:39 AM [facility] USE ONLY REPOSITORY TYPE CODE TESTS RESULT OUT OF REFERENCE UNITS RANGE LAB PH 7.35-7.45 pH 7.38 LAB PCO2 34-46 mm Hg pCO2 44 LAB PO2 85-95 mm Hg pO2 High 306 LAB BE mmol/L Base Excess 1 LAB HCO3 22-26 mmol/L Bicarbonate 26 LAB CO2CT 22.0-28.0 mmol/L CO2 Content 27 LAB O2HB 95-98 % Oxyhemoglobin, Art. 97 LAB COHB 0-5.0 % Carboxyhemoglobin,A 1.9 rt LAB MHGB 0.4-1.5 % Methemoglobin 0.5 LAB TEMP C Temperature, Body 37.0 LAB PHTC 7.35-7.45 pH, Temp Corrected 7.38 LAB PCO2T 34-46 mm Hg pCO2, Temp Correct 44 LAB PO2T mm Hg pO2, Temp Corrected 306 LAB NAB 132-148 mmol/L Sodium,Whole Bld Low 128 LAB KWB 3.5-5.0 mmol/L Potassium, Whole Bld 3.5 LAB HGBB 11.5-15.5 g/dL Low Hemoglobin,Total,AC 9.7 L LAB HCTB 36.0-46.0 % Hematocrit, ACL Low 30 LAB IC 1.08-1.30 mmol/L Calcium, Ion, WB Low 1.01 LAB GLB 60-105 mg/dL Glucose,Whole Bld High 154 LAB LACT 0.5-2.2 mmol/L Lactate 1.7 Performed By: #### ALLBG #### [facility] [address] [place], [place] [address] GASA + ALL Collected: 06/17/2017 Status: F Source: [place] FOR 10:37 AM [facility] RADIANCE USE ONLY REPOSITORY TYPE CODE TESTS RESULT OUT OF REFERENCE UNITS RANGE LAB PH 7.35-7.45 pH 7.40 LAB PCO2 34-46 mm Hg pCO2 37 LAB PO2 85-95 mm Hg pO2 High 301 LAB BE mmol/L Base Excess NEG 1 LAB HCO3 22-26 mmol/L Bicarbonate 23 LAB CO2CT 22.0-28.0 mmol/L CO2 Content 24 LAB O2HB 95-98 % Oxyhemoglobin, Art. 96 LAB COHB 0-5.0 % Carboxyhemoglobin, 2.7 Art LAB MHGB 0.4-1.5 % Methemoglobin 0.9 LAB TEMP C Temperature, Body 37.0 LAB PHTC 7.35-7.45 pH, Temp Corrected 7.40 LAB PCO2T 34-46 mm Hg pCO2, Temp Correct 37 LAB PO2T mm Hg pO2, Temp Corrected 301 LAB NAB 132-148 mmol/L Sodium,Whole Bld 134 LAB KWB 3.5-5.0 mmol/L Potassium, Whole Bld 4.3 LAB HGBB 11.5-15.5 g/dL Low Hemoglobin,Total,A 10.1 CL LAB HCTB 36.0-46.0 % Hematocrit, Low ACL 31 LAB IC 1.08-1.30 mmol/L Calcium, Ion, WB 1.10 LAB GLB 60-105 mg/dL Glucose,Whole High Bld 151 LAB LACT 0.5-2.2 mmol/L Lactate 1.7 LAB ACBDTE Notify Date, Art [id number] LAB ACBTME Notify Time, Art Performed By: #### ALLBG #### [facility] [address] [place], [place] [address] GASV + ALL Collected: 06/17/2017 Status: F Source: [place] 10:34 AM [facility] REPOSITORY TYPE CODE TESTS RESULT OUT OF REFERENCE UNITS RANGE LAB VPH 7.32-7.42 pH 7.34 LAB VPC2 42-55 mm Hg pCO2 46 LAB VPO2 35-45 mm Hg pO2 High 47 LAB VBE mmol/L Base Excess NEG 1 LAB VHC3 24-28 mmol/L Bicarbonate 24 LAB VC2C 25-29 mmol/L CO2 Content 26 LAB O2HBCX 60-85 % Oxyhemoglobin, Marky. 79 LAB CO <2.0 % High Carboxyhemoglobin, 2.6 Marky LAB METHB 0.4-1.5 % Methemoglobin 0.9 LAB VTMP C Temperature, Body 37.0 LAB VPHTC 7.32-7.42 pH, Temp Corrected 7.34 LAB VPC2T mm Hg pCO2, Temp Correct 46 LAB VPO2T mm Hg pO2, Temp Corrected 47 LAB NAB 132-148 mmol/L Sodium,Whole Bld 134 LAB KWB 3.5-5.0 mmol/L Potassium, Whole Bld 4.3 LAB HGBB 11.5-15.5 g/dL Low Hemoglobin,Total,A 10.2 CL LAB HCTB 36.0-46.0 % Hematocrit, Low ACL 32 LAB IC 1.08-1.30 mmol/L Calcium, Ion, WB 1.13 LAB GLB 60-105 mg/dL Glucose,Whole High Bld 148 LAB LACT 0.5-2.2 mmol/L Lactate 1.6 LAB VCBDTE Notify Date, Marky [id number] LAB VCBTME Notify Time, Marky Performed By: #### VALLBG #### [facility] [address] [place], [place] [address] ALLIED HEALTH Observed: 06/17/2017 Status: COMPLETED Source: [place] 7:26 AM [facility] REPOSITORY HNO ID: [id number] Author: Alissa () Chaplain Khurram Service: Spiritual Care Author Type: Guest Room Inspector Type: Allied Health Filed: 06/17/2017 7:31 AM Note Text: SPIRITUAL CARE Spiritual Care Visit Record Name: Keily Rasmussen Date: June 17, 2017 Type of Visit: Preoperative Prayer/Visit Visit was with (pt, family, other) and name(s): pt and 4 family members Ministry Provided During Visit: Spiritual Presence / Support Notes: Guest Room Inspector visited on rounds. This is patient's first surgery here and seemed somewhat tense but was not receptive to prayer. Guest Room Inspector advised pt and family of spiritual care resources and availability during their stay, including chaplains, healing services, and chapel and how to request them, then departed with a blessing. Referrals: No referral made Will See: As Needed Only Follow-up Notes: Informed patient and family of Guest Room Inspector availability Guest Room Inspector Signature: Chaplain Robinson To contact the Spiritual Care Department: Please call [phone] or Page the On-Call Guest Room Inspector at pager [phone] Thank you for the opportunity to be of service. This is an electronically created document. IF PRINTED, PLEASE DO NOT REMOVE FROM THE CHART OR MODIFY PRINTED COPY. GASA + ALL Collected: 06/17/2017 Status: F Source: [place] FOR 7:23 AM [facility] RADIANCE USE ONLY REPOSITORY TYPE CODE TESTS RESULT OUT OF REFERENCE UNITS RANGE LAB PH 7.35-7.45 pH 7.42 LAB PCO2 34-46 mm Hg pCO2 37 LAB PO2 85-95 mm Hg pO2 High 137 LAB BE mmol/L Base Excess 0 LAB HCO3 22-26 mmol/L Bicarbonate 24 LAB CO2CT 22.0-28.0 mmol/L CO2 Content 25 LAB O2HB 95-98 % Oxyhemoglobin, Art. 95 LAB COHB 0-5.0 % Carboxyhemoglobin,A 3.3 rt LAB MHGB 0.4-1.5 % Methemoglobin 1.2 LAB TEMP C Temperature, Body 37.0 LAB PHTC 7.35-7.45 pH, Temp Corrected 7.42 LAB PCO2T 34-46 mm Hg pCO2, Temp Correct 37 LAB PO2T mm Hg pO2, Temp Corrected 137 LAB NAB 132-148 mmol/L Sodium,Whole Bld 135 LAB KWB 3.5-5.0 mmol/L Potassium, Whole Bld 4.1 LAB HGBB 11.5-15.5 g/dL Hemoglobin,Total,AC 13.6 L LAB HCTB 36.0-46.0 % Hematocrit, ACL 42 LAB IC 1.08-1.30 mmol/L Calcium, Ion, WB 1.23 LAB GLB 60-105 mg/dL Glucose,Whole Bld 98 LAB LACT 0.5-2.2 mmol/L Lactate 1.0 Performed By: #### ALLBG #### [place] [id number] OPERATIVE NO Observed: 06/17/2017 Status: COMPLETED Source: [place] 12:00 AM [facility] REPOSITORY HNO ID: [id number] Author: Alberto Umana Service: Cardiovascular Surgery Author Type: Physician Type: Operative Report Filed: 06/18/2017 8:53 AM Note Text: [place] [id number] [place] OPERATIVE REPORT DEPARTMENT OF THORACIC AND CARDIOVASCULAR SURGERY NAME: KEILY RASMUSSEN [facility] #: [id number] DATE: 06/17/2017 AGE: 22 SURGEON 1: Alberto Umana M.D., Ph.D. SURGEON 2: ENVIRONMENTAL COMPLIANCE TECHNICIAN 1: Dr. Stoddard ENVIRONMENTAL COMPLIANCE TECHNICIAN 2: ANESTHESIA: General endotracheal. No qualified resident available. OPERATIONS: Reoperation, second open heart surgery. Re-resection of subaortic membrane. PREOPERATIVE DIAGNOSES: Subaortic membrane, history of PDA repair, and removal of subaortic membrane. POSTOPERATIVE DIAGNOSES: Subaortic membrane, history of PDA repair, and removal of subaortic membrane. OPERATIVE INDICATIONS: The patient is a 22-year-old lady who in 2005 had PDA ligation and resection of a subaortic membrane. She now returns with new membrane and resting gradient of peak 70 over the left ventricular outflow tract. This is a discrete localized membrane. She has mild aortic valve regurgitation. OPERATIVE FINDINGS: Transesophageal echocardiography in the operating room confirms the membrane and 1+ aortic regurgitation. On exploration, we found as anticipated discrete membrane a good cm below the aortic valve with mild scarring of the aortic cusps. OPERATIVE PROCEDURE: The patient was prepped and draped in normal sterile fashion. Re-sternotomy was performed. The right side of the heart and ascending aorta were dissected out. The patient was heparinized and aortic and bicaval cannulation was carried out. Cardiopulmonary bypass was initiated. The ascending aorta was cross- clamped and the heart arrested with antegrade and retrograde cardioplegia. Cardioplegia was repeated after 15 minutes. Proximal aortotomy was performed at exactly the same level as the first time. This was close to the commissures and the right coronary artery. The membrane was found as described. The membrane was resected circumferentially with a thin superficial myectomy. Generous irrigation was performed. The aortotomy was closed with running 4-0 Prolene. Cardioplegia hotshot was given. Aortic cross-clamp was removed. Pacing wires were placed. The patient was weaned from cardiopulmonary bypass. The heart was decannulated. Protamine was given. Careful hemostasis was carried out. One mediastinal chest tube was placed. The sternotomy was closed in an ordinary fashion. Post-pump echocardiography demonstrated a wide open left ventricular outflow tract with peak and mean gradients 15 and 8 mmHg respectively. Removed membrane tissue was sent for pathology. Dr. Vela opened and closed the chest and performed components of the procedure. I was present from cannulation to decannulation. I or another staff surgeon was immediately available for rest of the procedure. Incision 8.16, dressing on 13.40. ESTIMATED BLOOD LOSS: Bleeding was estimated to 500 mL. DRAINS: SPECIMENS: COUNTS: Correct. Alberto Umana M.D., Ph.D. GP:[id number] /[id number] cc: HOSP Observed: 05/07/2017 Status: COMPLETED Source: [place] 12:00 AM [facility] REPOSITORY Patient:Keily Rasmussen MRN: <[id number]> Height:5' 7.5(1.715 m) Weight:305 lb (138.347 kg) Outpatient Medications as of 06/17/17: HYDROcodone-acetaminophen (NORCO) 5-325 mg per tablet doxycycline monohydrate (MONODOX) 50 mg capsule benzonatate (TESSALON PERLE) 100 mg capsule mupirocin (BACTROBAN) 2 % ointment albuterol HFA (VENTOLIN HFA) 90 mcg/actuation inhaler buPROPion SR (WELLBUTRIN SR) 150 mg 12 hr tablet Blood Pressure Test Kit-Large (QUICK RESPONSE BP MONITOR) kit Admission/Clinic Administered Medications as of 06/17/17: Patient has no admission medications. Problem List: Heart valve stenosis [I38] Obesity, Class III, BMI 40-49.9 (morbid obesity) ([facility]) [E66.01] Hyperinsulinemia [E16.1] Adjustment disorder with mixed anxiety and depressed mood [F43.23] Seasonal allergic rhinitis due to pollen [J30.1] Morbid obesity (HCC) [E66.01] Asthma [J45.909] Aortic stenosis [I35.0] PCOS (polycystic ovarian syndrome) [E28.2] Pre-op testing [Z01.818] Discharge planning issues [Z02.9] Allergies: Penicillins Adsorbed Adult Tetanus And Diphtheria Toxoids Date Verified: 06/17/17 Lab Values Lab Value Units Date High Low POTA* 4.3 mmol/L 06/11/2017 5.1 3.7 ABDON* 46.3 % 06/11/2017 46.0 36.0 Progress Notes (DMFP DENT MF PROS MAIN): Manuel Oliveira MD, MD 06/16/2017 12:08 PM Signed WEB OFFSET PRESS FEEDER PROCEDURE NOTE 06/16/2017 HPI: Patient is a 22 year old female who presents for procedure. Extraction of tooth #15 for clearance prior to [facility] Medical/surgical/social history reviewed: PAST MEDICAL HISTORY Diagnosis Date - Aortic stenosis s/p repair of a PDA and subvalvular aortic stenosis. Sees Dr. Haider and Dr. Marie - Asthma - Morbid obesity (HCC) - PCOS (polycystic ovarian syndrome) elevated testosterone and elevated insulin - PDA (patent ductus arteriosus) s/p repair age 10 - Tobacco use PAST SURGICAL HISTORY Procedure Laterality Date - PAST SURGICAL HISTORY OF Repair of a PDA and subvalvular aortic stenosis-childhood Current Outpatient Prescriptions: doxycycline monohydrate (MONODOX) 50 mg capsule Take 50 mg by mouth twice daily. Disp: Rfl: benzonatate (TESSALON PERLE) 100 mg capsule Take 100 mg by mouth three times daily as needed. Disp: Rfl: mupirocin (BACTROBAN) 2 % ointment Apply 1 application to affected area twice daily. Disp: 22 g Rfl: 0 albuterol HFA (VENTOLIN HFA) 90 mcg/actuation inhaler Inhale 2 Puffs as instructed every 4 hours as needed. Disp: 1 Inhaler Rfl: 1 buPROPion SR (WELLBUTRIN SR) 150 mg 12 hr tablet Take 1 tablet by mouth twice daily. Disp: 60 tablet Rfl: 2 HYDROcodone-acetaminophen (NORCO) 5-325 mg per tablet Take 1 tablet by mouth every 6 hours as needed for Pain for up to 1 day. Disp: 4 tablet Rfl: 0 Blood Pressure Test Kit-Large (QUICK RESPONSE BP MONITOR) kit Bp check weekly and as needed. (R03.0) Elevated blood pressure reading without diagnosis of hypertension Disp: 1 Kit Rfl: 0 No current facility-administered medications for this visit. ALLERGIES Allergen Reactions - Penicillins Hives - Tetanus And Diphthe* Rash Local erythema and swelling in the affected arm. Surgery to be performed was reviewed. All R/B/As associated with procedure and anesthesia discussed again and all questions answered. INFORMED CONSENT Keily Rasmussen Medical Record: [id number] Procedure:Extraction of tooth #15 The risks, benefits and anticipated outcomes of the procedure, the risks and benefits of the alternatives to the procedure and the roles and tasks of the personnel to be involved were discussed with the patient and the patient consents to the procedure and agrees to proceed. I verify that I personally obtained Keily Rasmussen's consent. Manuel Oliveira MD June 16, 2017 12:03 PM Dept of DENTISTRY UNIVERSAL PROTOCOL / SAFETY CHECKLIST Procedure to be performed: Extraction of tooth #15 Sign in Communication: Completed Time Out: Team Confirms the Correct Patient, Correct Procedure, Correct Site and Site Marking, Correct Position (if applicable), Prep and Dry Time (if applicable). Affirmation of Time Out: YES Sign Out Discussion: Completed Manuel Oliveira MD PROCEDURE: P: Extraction of tooth #15 Dx: caries to pulp Extraction(s): #15 T: Pre-op abx taken prior to procedure 2 carpules - Local Anesthesia 4% Septocaine with 1:100,000 Epi Reviewed PMH. Risks benefits and alternatives to the procedure were discussed with the patient. Informed Consent was obtained.Topical anesthesia was applied. . A mucoperiosteal flap was elevated. Alveolar bone was removed with the aid of a rongeur on buccal to access healeth tooth structure. Tooth # 15 was extracted with elevator and extraction forceps. Curettage of extraction socket. Irrigation with NS. Closure with 3-0 chromic gut. Bennet hemostasis. No complications. Post operative instructions given to the patient. PA take to evaluate site following extraction. E: Pt cooperative N: 1. Follow up with [facility] as needed 2. Scripts: [place], continue current abx DISPOSITION: - home - Cleared to proceed with [facility] Manuel Oliveira MD Progress Notes ([facility]): Bhavani Madrigal CNP, FLOUR TESTER 06/11/2017 4:36 PM Signed AMBULATORY PATIENT EDUCATION READINESS TO LEARN Cognitive Ability: Alert and oriented Motivation To Learn: Interested Family Support: High - Very involved in pt care Instruction Provided To: Patient AND Family Patient Learns Best By: Multiple Methods Factors Affecting Learning: None Physical Limitations Affecting Learning: None LEARNING RESPONSE Diagnosis: subvalvular stenosis Education Topic: Pre-Op Open Heart Surgery Instructions Teaching Points: Logistics / Protocols /Complication Prevention Instruction/Supplemental Materials: Cardiac Surgery Information Binder Video Individual Instruction Patient/Family Response: Verbalizes understanding Follow up plan: Patient/Family to call [facility] with any further questions Referral (Recommendation): None Teach completed, topic: importance of dental clearance ALLERGIES ALLERGIES DATE TYPE / CODE NAME / CODE REACTION SEVERITY SOURCE 05/13/2018 DRUG DOXYCYCLINE RASH [facility] INGREDI/[address] [place] 402936(SN Repository ED CT) 05/07/2018 Drug Penicillins/B18731 Hives Unknown Naty Allergy/416 0476(RXNORM) Community 873644([facility] Hospital ED CT) Repository 05/07/2018 Drug Tetanus Vaccines Rash Unknown Naty Allergy/416 and Community 700156(SNOM Toxoid/[id number]( Hospital ED CT) RXNORM) Repository 04/15/2018 DRUG AMOXICILLIN RASH [facility] INGREDI/[address] [place] 874366(SNOM Repository ED CT) 04/14/2017 DRUG TETANUS AND RASH [facility] INGREDI/419 DIPHTHERIA [address] [place] 941675(SNOM TOXOIDS, ADSORBED, Repository ED CT) ADULT 11/28/2014 Drug PENICILLINS HIVES [facility] Class/48164 [address] [place] 1003(SNOMED Repository CT) NG/90275124 PENICILLINS [facility] 6(SNOMED [facility]) Repository NG/61724754 TETANUS AND [facility] 6(SNOMED DIPHTHERIA Health [facility] CT) TOXOIDS, ADSORBED, Repository ADULT ENCOUNTERS ENCOUNTERS ADMIT/DISCHARGE ACCOUNT NUMBER ADMITTING ENCOUNTER LOCATION SOURCE CLASS 06/17/2018/06/17/19 [id number] Ambulatory [address] [place] Repository 05/25/2018/05/25/20 [id number] Ambulatory [address] [place] Repository 05/15/2018/05/18/20 [id number] Ambulatory [address] [place] Repository 05/13/2018/05/14/20 [id number] Ambulatory [address] [place] Repository 05/09/2018/05/09/20 [id number] Ambulatory [address] [place] Repository 05/09/2018/05/11/20 [id number] Ambulatory [address] [place] Repository 05/07/2018/05/07/20 [id number] Emergency Naty [address] ding:ED Repository 04/30/2018/04/30/20 [id number] Emergency Naty[address] ding:ED Repository 04/15/2018/04/17/20 [id number] Ambulatory [address] Repository 04/06/2018/04/06/20 [id number] Ambulatory BMSBuilding: [place] [facility] Repository 04/01/2018/04/02/20 [id number] Ambulatory [address] [place] Repository 03/10/2018/10/22 [id number] Ambulatory [place] [facility] [place] Repository 03/04/2018/03/05/20 [id number] Ambulatory [address] [place] Repository 02/09/2018/02/11/20 [id number] Ambulatory [address] [place] Repository 02/09/2018/02/10/20 [id number] Ambulatory [address] [place] Repository 01/21/2018/01/23/20 [id number] Ambulatory [address] [place] Repository 01/20/2018 [id number] Ambulatory [facility] ding:SL Repository 01/15/2018/01/16/20 [id number] Ambulatory [address] [place] Repository 01/15/2018/01/20/20 [id number] Ambulatory [address] [place] Repository 12/22/2017/12/24/19 [id number] Ambulatory [address] [place] Repository 11/24/2017/11/25/19 [id number] Emergency BBuilding:KM Momin [address] [place] [address] Repository 11/19/2017 [id number] Ambulatory [facility] ding:[place] Repository 11/14/2017 [id number] Ambulatory [facility] MEDICAL Repository CENTERBuildi ng:CAGWS 11/05/2017/11/07/19 [id number] Ambulatory [address] [place] Repository 11/05/2017 [id number] Ambulatory [facility] [place] Repository 11/05/2017/11/08/19 [id number] Ambulatory [address] [place] Repository 10/24/2017/10/26/19 [id number] Emergency [address] ding:ED Repository 10/10/2017/10/14/19 [id number] Ambulatory [address] [place] Repository 10/02/2017/10/04/19 [id number] Ambulatory [address] [place] Repository 09/19/2017/09/20/19 [id number] Ambulatory [address] [place] Repository 09/19/2017/09/20/19 [id number] Ambulatory [address] MEDICAL Repository CENTERBuildi ng:CAGWS 09/16/2017/04/26 [id number] Ambulatory [place] [facility] [place] Repository 08/26/2017/08/27/19 [id number] Ambulatory [address] [place] Repository 08/22/2017/08/23/19 [id number] Ambulatory [place] 18 [facility] [place] Repository 08/22/2017/08/23/19 [id number] Ambulatory [place] [facility] [place] Repository 08/22/2017/08/23/19 [id number] Ambulatory [address] [place] Repository 08/22/2017 [id number] Ambulatory [facility] [place] Repository 08/05/2017/08/07/19 [id number] Ambulatory [address] [place] Repository 07/21/2017/07/26/19 [id number] Ambulatory [address] [place] Repository 07/18/2017/07/18/19 [id number] Emergency Naty Naty [address] [place] [address] ding:ED Repository 06/27/2017/06/27/19 [id number] Ambulatory [address] [place] Repository 06/23/2017/06/23/19 [id number] Ambulatory [address] [place] Repository 06/23/2017/06/23/19 [id number] Ambulatory [address] [place] Repository 06/23/2017/06/23/19 [id number] Ambulatory [address] [place] Repository 06/17/2017/06/21/[id number] Repository PAYERS PAYERS ENCOUNTER GUARANTOR PAYER SUBSCRIBER SOURCE 05/07/2018 KEILY A Primary KEILY A Naty [id number] Insurance:[facility]: [facility] Policy Number: [id number], [id number] [address]Mqw: [phone]) Date:2018-05-07 [phone] () [address]ATTN: [place] [address]XL: 05/07/2018 Secondary NOT GIVENUNK Naty Insurance:SELF PAY [facility] Number: Effective Repository Date:2018-05-07 04/30/2018 KEILY A Primary KEILY A [place] [id number] Insurance[facility] WHITEHEADDOB: [facility] Policy Number: [id number] Health Center [place], [id number] [place] [address]Fnb: [phone]) Date:2018-04-30P O [phone] (HP) [address]ATTN: [place] [address]RC: 04/30/2018 Secondary NOT GIVENUNK Naty Insurance:SELF PAY [facility] Number: Effective Repository Date:2018-04-30 04/06/2018 KEILY A Primary NOT GIVENUNK [place] [id number] Insurance:SELF PAY [facility] [phone]: [phone] Number: Effective Repository [phone] () Date:2018-04-06 01/20/2018 KEILY A Primary KEILY A [place] [id number] Insurance:CARESOURCE WHITEHEADDOB: [facility] Policy Number: [id number] [id number] Repository [address] [place] [address] Date:2017-12-15P O [phone]: [phone]) [address]ATTN: CLAIMS [phone] () [place] [address]UN: 01/20/2018 Secondary NOT GIVENUNK Naty Insurance:SELF PAY [facility] Number: Effective Repository Date:2017-12-15 11/24/2017 KEILY A Primary KEILY A [facility] WHITEHEADDOB: Insurance:CARESOURCE WHITEHEADDOB: [facility] [id number] e MEDICAIDPolicy [id number] [facility] Number: e [address] [id number] [address] [place] [phone]: ([phone]) Date:2016-12-07 [phone]: (HP) [phone] (HP)Tel: Name:[address] [place] [address] () [address]FR: 11/19/2017 KEILY A Primary KEILY A Naty [id number] Insurance:[facility] Policy Number: [id number] [facility] Rehabilitation Hospital [id number] Repository [address] [place] [address] Date:2017-11-05P O 19304Ebq: [phone]) [address]ATTN: CLAIMS [phone] (HP) [place] [address]YI: 11/19/2017 Secondary NOT GIVENUNK Naty Insurance:SELF PAY [facility] Number: Effective Repository Date:2017-11-05 11/14/2017 KEILY A Primary KEILY A [facility] WHITEHEADDOB: Insurance:CARESOURCE WHITEHEADDOB: [facility] MEDICAIDPolicy [id number] Repository [facility] Number: [address] [place] [address] [id number]: ([phone]) Date: [phone] () 10/24/2017 Keily A Primary Keily A [place] [id number] [facility] Policy Number: [id number] [facility] Rehabilitation Hospital [id number] Repository [address] [place] [address] Date:2017-10-24P O [id number]: [phone] [address]ATTN: CLAIMS [phone] () [place] [address]JB: 10/24/2017 Secondary NOT GIVENUNK [place] Insurance:SELF PAY [facility] Number: Effective Repository Date:2017-10-24 09/19/2017 KEILY A Primary KEILY A [facility] WHITEHEADDOB: Insurance:[facility]ITALE DUGSPURHEADDOB: Health System MEDICAIDPolicy [id number] Repository [facility] Number: [address] [place] [address] [id number]: ([phone]) Date: [phone] (HP) 07/18/2017 Keily A Primary Keily A Naty [id number] Insurance:CARESOURCE [place]DOB: [facility] Policy Number: [id number] [facility] [id number] Repository [address] [place] [address] Date:2017-07-18P O [phone]: [phone]) OTJ 2571ATTN: CLAIMS [phone] () [place] [address]OU: 07/18/2017 Secondary NOT GIVENUNK [place] Insurance:SELF PAY [facility] Number: Effective Repository Date:2017-07-18
== END 2018-05-07 15:48 | disposition home or self-care (01) ==
PROVIDERS: Emergency Provider Emergency Medicine; Family Provider Family Medicine; PCP Family Medicine
DX: R07.89 Other chest pain (principal); R06.00 Dyspnea, unspecified; R05 Cough; R11.0 Nausea; M54.9 Dorsalgia, unspecified; R51 Headache; R42 Dizziness and giddiness; K21.9 Gastro-esophageal reflux disease without esophagitis; I44.7 Left bundle-branch block, unspecified; E66.9 Obesity, unspecified; J45.909 Unspecified asthma, uncomplicated; F17.200 Nicotine dependence, unspecified, uncomplicated
CPT/HCPCS: 71046; 80048; 84484; 85025; 93005; 94640; 99285; A4216

== ENCOUNTER → 2018-09-09 20:00 | Outpatient (CLI) | payer MEDICAID, SELFPAY | PROVIDERS: Family Provider Family Medicine; PCP Family Medicine; Referring Provider Family Medicine; Visit Provider Family Medicine | DX: G47.33 Obstructive sleep apnea (adult) (pediatric) (principal) | CPT/HCPCS: 95811 ==

== ENCOUNTER 2018-09-17 21:52 | Emergency (ER) | payer MEDICAID, SELFPAY ==
[2018-09-17 21:54] VITALS: BP 160/87; PULSE 71; RESP 16; TEMP 37.2; O2SAT 96; BMI 50.1
--- NOTE | 2018-09-17 23:06 | RAD_ITS ---
STUDY: X-RAY CHEST REASON FOR EXAM: Female, 23 years old. Chest pain TECHNIQUE: Single AP portable view of the chest. COMPARISON: Prior chest radiograph of May 07, 2018 FINDINGS: The lungs are clear and expanded. There is no demonstrated pleural abnormality. Normal size heart. Status post prior midline sternotomy. Normal visualized pulmonary arteries. Normal visualized aortic arch and descending thoracic aorta. Normal visualized thoracic spine. Normal visualized ribs, clavicles, and shoulders. There is no demonstrated abnormality of the visualized soft tissue structures of the upper abdomen. RAD/Chest 1 View (Portable) IMPRESSION: No acute cardiopulmonary findings or changes. Electronically Signed: Suly Campos MD at 23:30 EDT , Service support ,
--- NOTE | 2018-09-17 23:06 | EKG12_ITS ---
Test Reason : CP Blood Pressure : / mmHG Vent. Rate : 072 BPM Atrial Rate : 072 BPM P-R Int : 158 ms QRS Dur : 140 ms QT Int : 440 ms P-R-T Axes : 029 022 113 degrees QTc Int : 481 ms Normal sinus rhythm Possible Left atrial enlargement Left bundle branch block Abnormal ECG Confirmed by CHRISTI HANEY, KAMERON ([id number]), dictionary editor HALEIGH COSTELLO ([id number]) on 09/21/2018 11:38:18 AM Referred By: Ken Barnes Confirmed By:KAMERON BARARZA MD
--- NOTE | 2018-09-17 23:07 | ED.VISSUMM ---
- ER Visit Summary Date of Service: 09/17/18 Chief Complaint: Chest pain History of Present Illness: The patient is a 23 F with chest pain that radiates to her back. She has had the symptoms on and off since age 10. This episode started 3 days ago. She associates it with starting work at [employer]. Nothing seems to make it better. She denies fevers. Denies any shortness of breath or cough. Denies leg swelling or calf pain. Denies any GI symptoms. She does have a history of VSD and had a surgery as most recently as May 2017 where she says they took tissue out and muscle out. She has been doing well since the surgery. She denies any history of ACS, PE, or aortic pathology. She does have history of asthma and is a smoker. She also has sleep apnea but does not use CPAP or BiPAP. Physical Examination: Afebrile and vital signs are unremarkable except for a blood pressure of 160/87. Patient is depressed but otherwise in no acute distress. Alert and oriented. Heart regular rate and rhythm. Lungs clear. Calf soft and supple. Skin normal in color without pallor or diaphoresis. Test Results: EKG, chest x-ray, laboratory studies pending. Emergency Department Course and Treatment: Patient has nonspecific symptoms. PERC negative. No further PE work-up was pursued. Nothing to suggest aortic disease. No trauma. This is not consistent with ACS. Because of her history of VSD. I will check EKG, labs, chest x-ray. Will evaluate for any emergency processes. EKG showed sinus rhythm. Left bundle branch block pattern. Rate 72. Chest x-ray showed no acute process. White count 12.7, glucose 113, troponin normal. On reevaluation, patient is resting comfortably. I believe she is appropriate for outpatient follow-up. Follow-up with her primary care doctor. She was given a work note. Treatment Plan: As above Disposition: Discharge Impression: 1. Atypical chest pain This note was generated with Sparta Systemsation software. It may contain incorrect words, spelling, and punctuation that were not noted in review of the chart prior to signing ED Disposition - Plan for ED Patient: Referrals: Ken Barnes MD [Primary Care Provider] -
--- NOTE | 2018-09-17 23:11 | ED.DCSUM_ITS ---
- ER Visit Summary Date of Service: 09/17/18 Chief Complaint: Chest pain History of Present Illness: The patient is a 23 F with chest pain that radiates to her back. She has had the symptoms on and off since age 10. This episode started 3 days ago. She associates it with starting work at [employer]. Nothing seems to make it better. She denies fevers. Denies any shortness of breath or cough. Denies leg swelling or calf pain. Denies any GI symptoms. She does have a history of VSD and had a surgery as most recently as May 2017 where she says they took tissue out and muscle out. She has been doing well since the surgery. She denies any history of ACS, PE, or aortic pathology. She does have history of asthma and is a smoker. She also has sleep apnea but does not use CPAP or BiPAP. Physical Examination: Afebrile and vital signs are unremarkable except for a blood pressure of 160/87. Patient is depressed but otherwise in no acute distress. Alert and oriented. Heart regular rate and rhythm. Lungs clear. Calf soft and supple. Skin normal in color without pallor or diaphoresis. Test Results: EKG, chest x-ray, laboratory studies pending. Emergency Department Course and Treatment: Patient has nonspecific symptoms. PERC negative. No further PE work-up was pursued. Nothing to suggest aortic disease. No trauma. This is not consistent with ACS. Because of her history of VSD. I will check EKG, labs, chest x-ray. Will evaluate for any emergency processes. EKG showed sinus rhythm. Left bundle branch block pattern. Rate 72. Chest x- ray showed no acute process. White count 12.7, glucose 113, troponin normal. On reevaluation, patient is resting comfortably. I believe she is appropriate for outpatient follow-up. Follow-up with her primary care doctor. She was given a work note. Treatment Plan: As above Disposition: Discharge Impression: 1. Atypical chest pain This note was generated with [employer] Interactiveation software. It may contain incorrect words, spelling, and punctuation that were not noted in review of the chart prior to signing ED Disposition - Plan for ED Patient: Referrals: Ken Barnes MD [Primary Care Provider] -
[2018-09-17 23:25] VITALS: BP 147/63; PULSE 65; RESP 16; O2SAT 99
[2018-09-17 23:25] LABS: Absolute Lymphocyte Count 3.98 X10^3/ul (0.83-4.51); Basophil# 0.07 X10^3/uL; Basophil% 0.5 % (0-1); Eosinophil# 0.63 X10^3/uL; Eosinophils% 4.9 % (0-5); Hematocrit 39.9 % (37-47); Hemoglobin 12.9 g/dl (12.0-15.0); Lymphocyte # 3.98 X10^3/ul (4.0); Lymphocyte % 31.3 % (19-41); Mean Corp Hgb Conc 32.3 g/gl (32-36); Mean Corpuscular Hgb 25.5 pg (27.0-32.0); Mean Platelet Vol. 9.3 fl (6.2-12.0); Monocyte# 1.01 X10^3/uL; Monocyte% 7.9 % (0-10); Neutrophil # 7.02 X10^3/uL (2.7-7.7); Neutrophil % 55.2 % (47-70); Platelet Count 295 K/mm3 (150-450); RBC Distribution Width CV 15.8 % (11.6-14.6); RBC Distribution Width SD 45.1 fl (35.1-43.9); Red Blood Count 5.05 M/mm3 (4.2-5.4); White Blood Count 12.7 K/mm3 (4.4-11.0)
[2018-09-17 23:26] LABS: POSITIVE COUNT NO; POSITIVE DIFFERENTIAL NO; POSITIVE MORPHOLOGY NO
[2018-09-17 23:43] LABS: Anion Gap 3 (5-15); BUN 11 mg/dL (7-18); BUN/Creat Ratio 18.8 RATIO (10-20); Calcium,Total 8.6 mg/dL (8.5-10.1); Chloride 103 mmol/L (98-107); Creatinine, Serum 0.59 mg/dL (0.55-1.02); EST Glomerular Filtration Rate 138 mL/min (>60); Est Glom Filt Rate - Afr Amer 166 mL/min (>60); Estimated Creatinine Clearance 146.68 ml/min; Glucose 113 mg/dL (74-106); Potassium 3.8 mmol/L (3.5-5.1); Sodium Level 136 mmol/L (136-145)
--- NOTE | 2018-09-18 00:38 | ED.DEP ---
ED Disposition - Plan for ED Patient: Instructions: ED Chest Pain Atypical Unkn Cause Referrals: Ken Barnes MD [Primary Care Provider] -
[2018-09-18 00:39] VITALS: BP 143/53; PULSE 74; RESP 16; O2SAT 99
== END 2018-09-18 00:51 | disposition home or self-care (01) ==
LOC: ED 23:23
PROVIDERS: Emergency Provider Emergency Medicine; Family Provider Family Medicine; PCP Family Medicine
DX: R07.89 Other chest pain (principal); M54.9 Dorsalgia, unspecified; I44.7 Left bundle-branch block, unspecified; J45.909 Unspecified asthma, uncomplicated; G47.33 Obstructive sleep apnea (adult) (pediatric); F32.9 Major depressive disorder, single episode, unspecified; Z87.74 Personal history of (corrected) congenital malformations of heart and circulatory system; Z79.899 Other long term (current) drug therapy; F17.200 Nicotine dependence, unspecified, uncomplicated
CPT/HCPCS: 71045; 80048; 84484; 85025; 93005; 99284; A4216

== ENCOUNTER → 2018-10-02 | Outpatient (CLI) | payer MEDICAID, SELFPAY ==
[2018-09-17 21:54] VITALS: BMI 50.1
== END | disposition home or self-care (01) ==
LOC: SL 13:14
PROVIDERS: Family Provider Family Medicine; PCP Family Medicine; Referring Provider Family Medicine; Visit Provider Family Medicine
DX: G47.33 Obstructive sleep apnea (adult) (pediatric) (principal)

== ENCOUNTER 2018-12-08 15:01 | Emergency (ER) | payer MEDICAID, SELFPAY ==
[2018-12-08 15:17] VITALS: BP 150/77; PULSE 85; RESP 17; TEMP 36.7; O2SAT 98; BMI 48.3
--- NOTE | 2018-12-08 15:30 | EKG12_ITS ---
Test Reason : CP Blood Pressure : / mmHG Vent. Rate : 064 BPM Atrial Rate : 064 BPM P-R Int : 150 ms QRS Dur : 140 ms QT Int : 440 ms P-R-T Axes : 016 022 130 degrees QTc Int : 453 ms Normal sinus rhythm Left bundle branch block Abnormal ECG Confirmed by CHRISTI HANEY, KAMERON ([id number]), film and video editor MERVIN RODRIGUEZ ([id number]) on 12/10/2018 1:33:14 PM Referred By: ZAID Confirmed By:KAMERON BARRAZA MD
[2018-12-08 15:33] VITALS: BP 137/68; PULSE 61; RESP 16; O2SAT 98
--- NOTE | 2018-12-08 15:34 | ED.DCSUM_ITS ---
- ER Visit Summary Date of Service: 12/08/18 Chief Complaint: Chest pain History of Present Illness: The patient is a 23 F presenting with chest pain. Patient states she was sitting in a tent leaning forward cleaning and started having sharp midsternal chest pain. She states this is worsened with moving b oth arms. She states she has been having intermittent pain over the past couple of months. She has has a history of previous heart surgery that she describes as myomectomy although she is not sure of the exact procedure. She states they removed part of the muscle of her heart. This was in May 2017. 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 She is a smoker. She denies PE/DVT risk factors. Physical Examination: Vitals are stable. Patient is afebrile. Alert no acute distress. HEENT exam is unremarkable. Neck is supple. Lungs are clear and equal bilaterally. Well-healed scar. Midsternal chest tenderness with no crepitus Heart is regular rate and rhythm. Abdomen is soft nontender nondistended. Extremities are unremarkable. Skin is warm and dry. No focal neurologic deficit. Remainder of exam is unremarkable. Emergency Department Course and Treatment: EKG is sinus rhythm rate of 64 with left bundle branch block similar to previous. She was given aspirin, morphine, Zofran IV. Chest x-ray shows normal x-ray examination of the chest. Status post midline sternotomy. CBC, chemistries unremarkable. Troponin is negative. On repeat evaluation, patient is resting comfortably. She is advised to follow- up with her primary care physician. Advised to return to the ED for worsening complaints. Disposition: Discharge home Impression: Chest wall strain This note was generated with [employer] dictation software. It may contain incorrect words, spelling, and punctuation that were not noted in review of the chart prior to signing ED Disposition - Plan for ED Patient: Instructions: Chest Wall Strain Referrals: Ken Barnes MD [Primary Care Provider] -
--- NOTE | 2018-12-08 15:35 | RAD_ITS ---
STUDY: X-RAY CHEST REASON FOR EXAM: Female, 23 years old. Chest pain. TECHNIQUE: Single AP portable view of the chest. COMPARISON: Comparison is made with prior study dated September 17, 2018. FINDINGS: EKG electrodes are seen. The lungs are clear and expanded. There is no demonstrated pleural abnormality. Sternal cerclage wires are present from a prior sternotomy. Normal mediastinum and gerald. Normal visualized pulmonary arteries. Normal visualized aortic arch and descending thoracic aorta. Normal visualized thoracic spine. Normal visualized ribs, clavicles, and shoulders. There is no demonstrated abnormality of the visualized soft tissue structures of the upper abdomen. RAD/Chest 1 View (Portable) IMPRESSION: Normal x-ray examination of the chest. Status post midline sternotomy. Electronically Signed: Seng Luna, at 15:49 EDT , Service support ,
[2018-12-08] MEDS: Ondansetron 4 MG/2 ML Vial IV (15:38)
[2018-12-08] MEDS: Aspirin 81 MG TAB.CHEW 324 MG PO (15:38)
[2018-12-08] MEDS: Morphine 4 MG/ML Syringe IV (15:39)
[2018-12-08 16:05] LABS: Basophil# 0.08 X10^3/uL; Basophil% 0.8 % (0-1); Eosinophil# 0.66 X10^3/uL; Eosinophils% 6.6 % (0-5); Hemoglobin 14.7 g/dL (12.0-15.0); Lymphocyte % 25.9 % (19-41); Mean Corpuscular Hgb 26.3 pg (27.0-32.0); Mean Corpuscular Volume 82.1 fL (81-99); Mean Platelet Vol. 9.4 fl (6.2-12.0); Monocyte# 0.65 X10^3/uL; Monocyte% 6.5 % (0-10); NRBC Flagged by Analyzer 0 % (0-5); Neutrophil % 59.7 % (47-70); Platelet Count 348 K/mm3 (150-450); RBC Distribution Width CV 14.7 % (11.6-14.6); RBC Distribution Width SD 44.4 fl (35.1-43.9)
[2018-12-08 16:53] LABS: Anion Gap 8 (5-15); BUN 6 mg/dL (7-18); BUN/Creat Ratio 10.8 RATIO (10-20); Calcium,Total 9.2 mg/dL (8.5-10.1); Chloride 106 mmol/L (98-107); Creatinine, Serum 0.56 mg/dL (0.55-1.02); EST Glomerular Filtration Rate 146 mL/min (>60); Est Glom Filt Rate - Afr Amer 177 mL/min (>60); Estimated Creatinine Clearance 154.53 ml/min; Glucose 86 mg/dL (74-106); Potassium 4.1 mmol/L (3.5-5.1); Sodium Level 138 mmol/L (136-145)
--- NOTE | 2018-12-08 17:05 | ED.DEP ---
ED Disposition - Plan for ED Patient: Instructions: Chest Wall Strain Referrals: Ken Barnes MD [Primary Care Provider] -
[2018-12-08 17:12] VITALS: BP 106/36; PULSE 61; RESP 20; O2SAT 97
== END 2018-12-08 17:13 | disposition home or self-care (01) ==
PROVIDERS: Emergency Provider Emergency Medicine; Family Provider Family Medicine; PCP Family Medicine
DX: S29.011A Strain of muscle and tendon of front wall of thorax, initial encounter (principal); X58.XXXA Exposure to other specified factors, initial encounter; Y93.9 Activity, unspecified; Y92.9 Unspecified place or not applicable; I44.7 Left bundle-branch block, unspecified; F32.9 Major depressive disorder, single episode, unspecified; Z79.899 Other long term (current) drug therapy; F17.200 Nicotine dependence, unspecified, uncomplicated
CPT/HCPCS: 71045; 80048; 84484; 85025; 93005; 96374; 96375; 99285; A4216; J2405

== ENCOUNTER → 2019-01-05 | Outpatient (CLI) | payer MEDICAID, SELFPAY ==
[2018-12-15 10:38] VITALS: BMI 47.7
--- NOTE | 2019-01-05 10:03 | ECHOD_ITS ---
Reason For Study: AV stenosis Procedure This was a 2D Doppler, Color Flow transthoracic echocardiogram. The study was technically difficult. Due to body habitus. Exam performed in department. Left Ventricle Normal LV size. Concentric left ventricular hypertrophy. The estimated ejection fraction is 55 %. No evidence for diastolic dysfunction. No regional wall motion abnormalities noted. Right Ventricle Normal right ventricle. Normal systolic function. Atria Normal left atrium. Normal right atrium. No doppler evidence for ASD. Mitral Valve There is no mitral valve stenosis. No mitral valve insufficiency. Tricuspid Valve There is no tricuspid stenosis. Trivial tricuspid valve insufficiency. Pulmonary artery systolic pressure is 35-40 mmHg. Aortic Valve Trisinus/trileaflet aortic valve. There is mildy increased velocities across the aortic valve with the apperance of normal valve opening on 2d echo. 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 The elevated gradient could be a result of mild narrowing in the sub valvular area with the LVOT measurements being taken below it. Mild (1+) aortic valve insufficiency. Pulmonic Valve There is no pulmonic valvular stenosis. No pulmonic valve insufficiency. Great Vessels Normal aortic root. Pericardium/Pleural No pericardial effusion. MMode/2D Measurements & Calculations LVIDd: 5.4 cm IVSd: 1.2 cm LVOT diam: 2.4 cm LVIDs: 3.5 cm LVPWd: 1.2 cm LVOT area: 4.4 cm2 RVDd: 2.9 cm FS: 34.4 % Ao root diam: 3.0 cm LAV(MOD-bp): 73.7 ml LA A4 area: 21.5 cm2 LAV(MOD-bp) Indexed: 30.5 ml/m2 LAV(MOD-sp2): 69.2 ml LAV(MOD-sp4): 69.3 ml LA dimension(2D): 4.7 cm RA A4 area: 13.9 cm2 Time Measurements MV dec time: 0.20 sec Doppler Measurements & Calculations MV E max tomas: 132.5 cm/sec Lat Peak E' Tomas: 9.8 cm/sec Med Peak E' Tomas: 11.9 cm/sec MV A max tomas: 76.7 cm/sec E/E' lat: 13.5 E/E' med: 11.1 MV E/A: 1.7 Ao V2 max: 266.5 cm/sec AI max tomas: 372.8 cm/sec LV V1 max: 167.3 cm/sec Ao max P.5 mmHg AI max P.7 mmHg LV V1 max P.2 mmHg Ao V2 mean: 195.8 cm/sec AI dec slope: 222.5 cm/sec2 LV V1 mean P.8 mmHg Ao mean P.9 mmHg AI P1/2t: 490.7 msec LV V1 mean: 123.4 cm/sec Ao V2 VTI: 56.6 cm LV V1 VTI: 34.2 cm MARIA LUZ(I,D): 2.6 cm2 MARIA LUZ(V,D): 2.8 cm2 SV(LVOT): 149.9 ml PA V2 max: 151.4 cm/sec TR max tomas: 285.1 cm/sec TR max P.5 mmHg Interpretation Summary The estimated ejection fraction is 55 %. No evidence for diastolic dysfunction. Pulmonary artery systolic pressure is 35-40 mmHg. There is mildy increased velocities across the aortic valve with the apperance of normal valve opening on 2d echo. 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 The elevated gradient could be a result of mild narrowing in the sub valvular area with the LVOT measurements being taken below it. Ordering Physician: Rancho Bonilla Referring Physician: Jimmy Doyle Performed By: Mariel Lawrence, CONG, RVT
== END | disposition home or self-care (01) ==
LOC: CVS 10:02
PROVIDERS: Family Provider Family Medicine; PCP Family Medicine; Referring Provider Specialist; Visit Provider Specialist
DX: I35.0 Nonrheumatic aortic (valve) stenosis (principal)
CPT/HCPCS: 93306

== ENCOUNTER 2019-06-04 15:41 | Emergency (ER) | payer MEDICAID, SELFPAY ==
[2019-03-30 13:04] VITALS: BMI 47.6
[2019-06-04 15:42] VITALS: BP 161/77; PULSE 95; RESP 16; TEMP 36.9; O2SAT 97; BMI 48.4
--- NOTE | 2019-06-04 15:51 | EKG12_ITS ---
Test Reason : CP Blood Pressure : / mmHG Vent. Rate : 079 BPM Atrial Rate : 079 BPM P-R Int : 156 ms QRS Dur : 142 ms QT Int : 410 ms P-R-T Axes : 026 020 149 degrees QTc Int : 470 ms Sinus rhythm with occasional Premature ventricular complexes Possible Left atrial enlargement Left bundle branch block Abnormal ECG Confirmed by CHRISTI HANEY, KAMERON ([id number]), mapping editor HALEIGH COSTELLO ([id number]) on 06/07/2019 10:26:51 AM Referred By: RHIANNON Confirmed By:KAMERON BARRAZA MD
--- NOTE | 2019-06-04 16:25 | ED.DCSUM_ITS ---
- ER Visit Summary Date of Service: 06/04/19 Chief Complaint: Chest pain History of Present Illness: The patient is a 23 F with a history of 2 heart surgeries, her most recent one was May 2017. She had a myomectomy and subaortic membrane and PDA. She has a history of a left bundle branch block pattern on her EKG. She presents today with 2 days of constant chest pain. Nothing seemed to bring it on. It is worse with moving her left arm. Pain starts in her left chest and radiates down her left arm. Nothing else seems to make it worse. Nothing seems to make it better. No other associated symptoms. No history of coronary disease, DVT, PE, recent respiratory illness, or lung disease. Physical Examination: Blood pressure 161/77. Otherwise vitals unremarkable. Alert and oriented. No acute distress. Skin appears normal. Heart regular rate and rhythm with no murmurs. Lungs clear. Pulses strong and equal. Calves soft and supple. Test Results: EKG shows sinus rhythm at a rate of 79 with PVCs and left bundle branch block pattern. This is unchanged. Laboratory studies and chest x-ray are pending. Patient had a CTA of her chest in 2018 after her surgery. This showed no evidence of dissection or other aortic pathology. CBC, BMP, troponin unremarkable. This is atypical chest pain. I suspect musculoskeletal in etiology. I do not believe this is ACS, PE, dissection, or complication from her surgery. Based on her history, symptoms, exam, and findings today. Patient will be referred for outpatient follow-up. Emergency Department Course and Treatment: As above Treatment Plan: As above Disposition: Discharge Impression: Atypical chest pain This note was generated with [employer] dictation software. It may contain incorrect words, spelling, and punctuation that were not noted in review of the chart prior to signing ED Disposition - Plan for ED Patient: Referrals: Ken Barnes MD [Primary Care Provider] -
--- NOTE | 2019-06-04 16:35 | RAD_ITS ---
STUDY: X-RAY CHEST REASON FOR EXAM: Female, 23 years old. Chest pain TECHNIQUE: Frontal view of the chest COMPARISON: X-ray chest December 08, 2018 FINDINGS: Sternotomy changes are present. The lungs are clear. There are no pleural effusions. There is no pneumothorax. The heart is normal in size. The visualized osseous structures are within normal limits. RAD/Chest 1 View (Portable) IMPRESSION: No acute thoracic pathology. Electronically Signed: Jadiel Corea, at 17:01 EST Tel , Service support ,
[2019-06-04 16:42] VITALS: BP 115/44; PULSE 65; RESP 18; O2SAT 97
[2019-06-04 17:00] VITALS: BP 115/44; PULSE 65; RESP 19; O2SAT 98
[2019-06-04 17:49] LABS: Absolute Lymphocyte Count 2.88 X10^3/uL (0.83-4.51); Absolute Neutrophil Count 4.9 X10^3/uL (2.0-7.7); Basophil# 0.08 X10^3/uL; Basophil% 0.9 % (0-1); Eosinophil# 0.45 X10^3/uL; Eosinophils% 4.9 % (0-5); Hemoglobin 13.3 g/dL (12.0-15.0); Lymphocyte # 2.88 X10^3/ul (4.0); Lymphocyte % 31.6 % (19-41); Mean Corp Hgb Conc 31.7 g/dL (32-36); Mean Corpuscular Hgb 25.9 pg (27.0-32.0); Mean Corpuscular Volume 81.9 fL (81-99); Mean Platelet Vol. 9.5 fl (6.2-12.0); Monocyte# 0.72 X10^3/uL; Monocyte% 7.9 % (0-10); NRBC Flagged by Analyzer 0 % (0-5); Neutrophil # 4.94 X10^3/uL (2.7-7.7); Neutrophil % 54.3 % (47-70); Platelet Count 304 K/mm3 (150-450); RBC Distribution Width CV 14.6 % (11.6-14.6); RBC Distribution Width SD 43.2 fl (35.1-43.9); Red Blood Count 5.13 M/mm3 (4.2-5.4); White Blood Count 9.1 K/mm3 (4.4-11.0)
[2019-06-04 18:00] VITALS: BP 112/54; PULSE 82; RESP 16; O2SAT 98
[2019-06-04 18:04] LABS: Anion Gap 4 (5-15); BUN 12 mg/dL (7-18); BUN/Creat Ratio 18.3 RATIO (10-20); Calcium,Total 9.1 mg/dL (8.5-10.1); Chloride 109 mmol/L (98-107); Creatinine, Serum 0.65 mg/dL (0.55-1.02); EST Glomerular Filtration Rate 120 mL/min (>60); Est Glom Filt Rate - Afr Amer 146 mL/min (>60); Estimated Creatinine Clearance 133.14 ml/min; Glucose 96 mg/dL (74-106); Potassium 4.1 mmol/L (3.5-5.1); Sodium Level 138 mmol/L (136-145)
--- NOTE | 2019-06-04 18:23 | ED.DEP ---
ED Disposition - Plan for ED Patient: Instructions: CHEST PAIN, Uncertain Cause Referrals: Ken Barnes MD [Primary Care Provider] -
[2019-06-04 18:40] VITALS: BP 112/54; PULSE 70; RESP 22; O2SAT 97
== END 2019-06-04 18:43 | disposition home or self-care (01) ==
LOC: ED 16:19
PROVIDERS: Emergency Provider Emergency Medicine; Family Provider Family Medicine; PCP Family Medicine
DX: R07.89 Other chest pain (principal); I44.7 Left bundle-branch block, unspecified; I49.3 Ventricular premature depolarization; J45.909 Unspecified asthma, uncomplicated; G47.33 Obstructive sleep apnea (adult) (pediatric); E28.2 Polycystic ovarian syndrome; Z72.0 Tobacco use
CPT/HCPCS: 71045; 80048; 84484; 85025; 93005; 99283; A4216

== ENCOUNTER 2019-07-01 16:19 | Emergency (ER) | payer MEDICAID, SELFPAY ==
[2019-07-01 16:20] VITALS: BP 162/81; PULSE 87; RESP 16; TEMP 36.1; O2SAT 97; BMI 48.4
--- NOTE | 2019-07-01 16:50 | RAD_ITS ---
STUDY: X-RAY - RIGHT KNEE REASON FOR EXAM: Female, 24 years old. Generalized Rt knee pain after fall 4 days ago TECHNIQUE: 4 view(s) of the knee. COMPARISON: None. FINDINGS: Normal visualized distal femur. Normal visualized proximal tibia and fibula. Normal proximal tibiofibular articulation. There is no demonstrated fracture. Normal medial femorotibial compartment. Normal lateral femorotibial compartment. Normal patellofemoral articulation. There is no demonstrated joint effusion. The soft tissue structures are unremarkable. RAD/Knee 4 or More Views IMPRESSION: Normal x-ray examination of the knee. Electronically Signed: Sy Shelton MD at 17:22 EST , Service support ,
--- NOTE | 2019-07-01 16:50 | RAD_ITS ---
STUDY: X-RAY - LEFT TIBIA AND FIBULA REASON FOR EXAM: Female, 24 years old. Left wagner pain after fall 4 days ago TECHNIQUE: 2 view(s) of the tibia and fibula were obtained. COMPARISON: None. FINDINGS: Normal visualized tibia. Normal visualized fibula. There is no demonstrated acute fracture. The soft tissue structures are unremarkable. RAD/Tibia & Fibula 2 Views IMPRESSION: Normal x-ray examination of the tibia and fibula. Electronically Signed: Sy Shelton MD at 17:21 EST , Service support ,
[2019-07-01] MEDS: Ibuprofen 400 MG Tablet 800 MG PO (17:10)
--- NOTE | 2019-07-01 18:09 | ED.VISSUMM ---
- ER Visit Summary Date of Service: 07/01/19 Chief Complaint: Right knee and left wagner pain History of Present Illness: The patient is a 24 F who had a mechanical fall and injured her right anterior knee and left anterior wagner. Physical Examination: Patient has diffuse tenderness to her right anterior knee and left mid wagner with a knot. Otherwise neurovascular intact and normal exam. Test Results: X-rays negative. Emergency Department Course and Treatment: Patient treated with ibuprofen. Rest, ice, elevate. Outpatient follow-up. Treatment Plan: As above Disposition: Discharge Impression: 1. Right knee pain 2. Left lower leg pain This note was generated with [employer] dictation software. It may contain incorrect words, spelling, and punctuation that were not noted in review of the chart prior to signing ED Disposition - Plan for ED Patient: Disposition: Home or Assisted Living Instructions: CONTUSION, Lower Extremity Prescriptions: Ibuprofen [Motrin] 800 mg PO TID PRN PRN #20 tab PRN Reason: Pain Or Fever Prescription Printed Referrals: Ken Barnes MD [Primary Care Provider] -
[2019-07-01 18:14] VITALS: BP 134/81; PULSE 84; RESP 16; O2SAT 98
== END 2019-07-01 18:15 | disposition home or self-care (01) ==
PROVIDERS: Emergency Provider Emergency Medicine; PCP Family Medicine
DX: M25.561 Pain in right knee (principal); M79.662 Pain in left lower leg; W19.XXXA Unspecified fall, initial encounter; Y93.9 Activity, unspecified; Y92.9 Unspecified place or not applicable; Z72.0 Tobacco use
CPT/HCPCS: 73564; 73590; 99283

== ENCOUNTER → 2019-10-28 11:58 | Outpatient (CLI) | payer MEDICAID, SELFPAY ==
[2019-07-14 13:22] VITALS: BMI 47.7
--- NOTE | 2019-10-28 12:05 | RAD_ITS ---
STUDY: X-RAY - THORACIC SPINE REASON FOR EXAM: Female, 24 years old. CP, HEART SURGERY X 2. TECHNIQUE: 3 view(s) of the thoracic spine were obtained. COMPARISON: None. FINDINGS: Normal kyphosis of the thoracic spine. There is no substantial scoliosis. Normal thoracic vertebrae and endplates. Normal disc space heights. Prior midline sternotomy. The soft tissue structures are unremarkable. RAD/Thoracic Spine 3 Views IMPRESSION: Normal x-ray examination of the thoracic spine. Electronically Signed: Seng Luna, at 13:07 EDT , Service support ,
--- NOTE | 2019-10-28 12:05 | RAD_ITS ---
STUDY: X-RAY - CERVICAL SPINE REASON FOR EXAM: Female, 24 years old. NECK AND LEFT ARM PAIN. TECHNIQUE: 5 view(s) of the cervical spine were obtained including oblique views. COMPARISON: None FINDINGS: Normal anterior atlantoaxial articulation. Normal odontoid process. There is straightening of the normal cervical lordosis. Normal vertebral bodies and endplates. Normal disc space heights. Normal visualized intervertebral neuroforamina. The soft tissue structures are unremarkable. RAD/Cerv Spine 4 or 5 Views IMPRESSION: Loss of the normal cervical lordosis. Electronically Signed: Seng Luna, at 13:08 EDT , Service support ,
== END ==
PROVIDERS: PCP Family Medicine; Referring Provider Anesthesiology Pain Medicine; Visit Provider Anesthesiology Pain Medicine
DX: M54.2 Cervicalgia (principal); M79.602 Pain in left arm; R07.9 Chest pain, unspecified
CPT/HCPCS: 72050; 72072

== ENCOUNTER → 2020-01-07 17:55 | Outpatient (CLI) | payer MEDICAID, SELFPAY ==
[2019-07-14 13:22] VITALS: BMI 47.7
== END ==
PROVIDERS: PCP Family Medicine; Referring Provider Nurse Practitioner Family; Visit Provider Nurse Practitioner Family
DX: R05 Cough (principal); R19.7 Diarrhea, unspecified; Z20.828 Contact with and (suspected) exposure to other viral communicable diseases
CPT/HCPCS: 87635; 94799; U0003

== ENCOUNTER → 2020-01-19 10:42 | Outpatient (CLI) | payer MEDICAID, SELFPAY ==
[2019-07-14 13:22] VITALS: BMI 47.7
--- NOTE | 2020-01-19 10:43 | ECHOD_ITS ---
Reason For Study: CP, Subvalvular Procedure This was a 2D Doppler, Color Flow transthoracic echocardiogram. Exam performed in department. Left Ventricle Normal LV size. The estimated ejection fraction is 65 %. Normal diastology for age. No regional wall motion abnormalities noted. Right Ventricle Normal RV size. Normal systolic function. Atria The left atrium is mildly enlarged. Normal right atrium. No doppler evidence for ASD. Mitral Valve There is no mitral valve stenosis. Trivial mitral valve insufficiency. Tricuspid Valve There is no tricuspid stenosis. Trivial tricuspid valve insufficiency. Pulmonary artery systolic pressure is 35-40 mmHg. Aortic Valve Trisinus/trileaflet aortic valve. 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 Compared to previous echo the gradient is stable or improved. Mild (1+) aortic valve insufficiency. Pulmonic Valve There is no pulmonic valvular stenosis. No pulmonic valve insufficiency. Great Vessels Normal aortic root. Pericardium/Pleural No pericardial effusion. MMode/2D Measurements & Calculations LVIDd: 5.1 cm IVSd: 1.5 cm LVOT diam: 2.2 cm LVIDs: 3.6 cm LVPWd: 1.1 cm LVOT area: 3.8 cm2 RVDd: 3.3 cm FS: 30.1 % Ao root diam: 3.4 cm LAV(MOD-bp): 54.2 ml LA A4 area: 17.6 cm2 LAV(MOD-bp) Indexed: 22.2 ml/m2 LAV(MOD-sp2): 46.9 ml LAV(MOD-sp4): 55.3 ml LA dimension(2D): 4.8 cm RA A4 area: 13.0 cm2 Doppler Measurements & Calculations MV E max tomas: 104.9 cm/sec Lat Peak E' Tomas: 8.6 cm/sec Med Peak E' Tomas: 11.2 cm/sec MV A max tomas: 67.6 cm/sec E/E' lat: 12.2 E/E' med: 9.3 MV E/A: 1.6 Ao V2 max: 228.8 cm/sec AI max tomas: 432.2 cm/sec LV V1 max: 185.1 cm/sec Ao max P.0 mmHg AI max P.7 mmHg LV V1 max P.7 mmHg Ao V2 mean: 163.3 cm/sec AI dec slope: 196.7 cm/sec2 LV V1 mean P.0 mmHg Ao mean P.8 mmHg AI P1/2t: 643.6 msec LV V1 mean: 145.0 cm/sec Ao V2 VTI: 51.2 cm LV V1 VTI: 46.8 cm MARIA LUZ(I,D): 3.5 cm2 MARIA LUZ(V,D): 3.1 cm2 SV(LVOT): 179.0 ml PA V2 max: 131.4 cm/sec TR max tomas: 288.5 cm/sec TR max P.3 mmHg Interpretation Summary Trivial mitral valve insufficiency. Trivial tricuspid valve insufficiency. 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 Compared to previous echo the gradient is stable or improved. Mild (1+) aortic valve insufficiency. The estimated ejection fraction is 65 %. Ordering Physician: Rancho Bonilla Referring Physician: Jimmy Washburn Performed By: Katie Jimenes, RDSARAH, RVT
== END ==
PROVIDERS: PCP Family Medicine; Referring Provider Specialist; Visit Provider Specialist
DX: I35.0 Nonrheumatic aortic (valve) stenosis (principal); R07.9 Chest pain, unspecified
CPT/HCPCS: 93306

== ENCOUNTER → 2020-02-28 17:46 | Outpatient (CLI) | payer MEDICAID, SELFPAY ==
[2019-07-14 13:22] VITALS: BMI 47.7
== END ==
PROVIDERS: PCP Family Medicine; Referring Provider Physician Assistant; Visit Provider Physician Assistant
DX: Z20.828 Contact with and (suspected) exposure to other viral communicable diseases (principal)
CPT/HCPCS: 87635; C9803; U0003

== ENCOUNTER → 2020-09-07 08:31 | Outpatient (CLI) | payer MEDICAID, SELFPAY ==
[2020-07-21 13:44] VITALS: BMI 51.8
--- NOTE | 2020-09-07 08:45 | RAD_ITS ---
PROCEDURE: Air contrast Upper GI with Small Bowel Follow Through DATE OF EXAMINATION: 09/07/2020. INDICATION: Female, 25 years old. Epigastric and periumbilical abdominal pain. FLUOROSCOPY TIME (if supplied): (1:09) minutes/seconds. 18 images were obtained. TECHNIQUE: Radiographic and fluoroscopic images of the distal esophagus, stomach, and entire small intestine were obtained following the oral ingestion of barium. COMPARISON: None. FINDINGS: The pricing associate film of the abdomen demonstrates a normal bowel gas pattern. There are no abnormal calcifications or organomegaly demonstrated. The visualized osseous structures are normal. A single contrast small bowel follow through exam demonstrates the small bowel to have no evidence for stricture, ulceration or mass. The transit time is normal at 30 minutes. RAD/Upper GI/w Small Bowel IMPRESSION: 1. Normal single contrast small bowel follow-through exam. Electronically Signed: Seng Luan MD at 14:07 EDT , Service support ,
== END ==
PROVIDERS: PCP Family Medicine; Visit Provider Nurse Practitioner Adult Health
DX: R10.13 Epigastric pain (principal); R10.33 Periumbilical pain
CPT/HCPCS: 74246; 74248

== ENCOUNTER → 2021-01-22 11:50 | Outpatient (CLI) | payer MEDICAID, SELFPAY ==
[2020-11-15 13:16] VITALS: BMI 51.8
== END ==
PROVIDERS: PCP Family Medicine; Referring Provider Nurse Practitioner Family; Visit Provider Nurse Practitioner Family
DX: I35.0 Nonrheumatic aortic (valve) stenosis (principal); R07.9 Chest pain, unspecified

== ENCOUNTER 2021-02-02 18:14 | Emergency (ER) | payer MEDICAID, SELFPAY ==
[2021-02-02 18:14] VITALS: BP 167/95; PULSE 83; RESP 18; TEMP 37.9; O2SAT 96; BMI 49.6
--- NOTE | 2021-02-02 19:40 | EKG12_ITS ---
Test Reason : SOB Blood Pressure : / mmHG Vent. Rate : 066 BPM Atrial Rate : 066 BPM P-R Int : 152 ms QRS Dur : 142 ms QT Int : 448 ms P-R-T Axes : 033 034 101 degrees QTc Int : 469 ms Normal sinus rhythm Left bundle branch block Abnormal ECG Confirmed by CHRISTI HANEY, KAMERON ([id number]), society editor HALEIGH COSTELLO ([id number]) on 02/05/2021 2:16:05 PM Referred By: ANTONIA Confirmed By:KAMERON BARRAZA MD
--- NOTE | 2021-02-02 19:51 | ED.VIS.DYS ---
HPI History of Present Illness Chief Complaint: Shortness of Breath Informant: patient Narrative Narrative: Patient with dyspnea. She states her symptoms started earlier this week. She states everyone at home has a viral illness. However, every time she gets a viral illness it turns into a pneumonia and that is why she is here. She saw her physician. Her symptoms started Friday or Friday and she had a Covid test on either Friday or Friday that was negative. No known exposure to Covid. No Covid vaccine. She does have asthma. She last used her nebulizer last night. She states she does not know if it works because she used it and then she went to sleep for hours and felt good. I am suspicious it did help her. She is coughing. She occasionally brings up a little green or yellow sputum. She is not having leg pain or swelling. No chest pain. No pleuritic pain. No hemoptysis. She does have a history of ventricular septal defect that was repaired twice. No known complications. Nothing specifically makes her symptoms worse. It sounds like the nebulizer helps. She does not know when she was last on steroids. [facility] Medical History (Updated 02/02/21 @ 21:[address] David Cagle MD) Aortic stenosis Asthma Chest pain Depression Morbid obesity QUINTON (obstructive sleep apnea) PCOS (polycystic ovarian syndrome) Home Medications ibuprofen 800 mg PO TID PRN PRN #20 tab 07/01/19 [Rx Last Taken Unknown] albuterol sulfate 90 mcg/actuation aerosol inhaler 2 puff INHALATION Q4H PRN g 07/14/19 [History Last Taken Unknown] benzonatate 100 mg PO TID PRN PRN #20 cap 02/02/21 [Rx Last Taken Unknown] ondansetron 4 mg PO Q8H PRN #10 tab 02/02/21 [Rx Last Taken Unknown] prednisone 60 mg PO DAILY #15 tab 02/02/21 [Rx Last Taken Unknown] sertraline [Zoloft] 50 mg PO DAILY 02/02/21 [History Last Taken Unknown] Allergy/AdvReac Type Severity Reaction Status Date / Time doxycycline Allergy Intermediate rash Verified 02/02/21 18:51 Penicillins Allergy Hives Verified 02/02/21 18:51 Tetanus Vaccines and Toxoid Allergy Rash Verified 02/02/21 18:51 Family History Mother COPD (chronic obstructive pulmonary disease) Thyroid disorder Asthma QUINTON (obstructive sleep apnea) Father Diabetes Myocardial infarction Sister COPD (chronic obstructive pulmonary disease) Asthma Thyroid disorder QUINTON (obstructive sleep apnea) Brother Diabetes Grandmother COPD (chronic obstructive pulmonary disease) Hypertension Asthma CVA (cerebral vascular accident) Thyroid disorder QUINTON (obstructive sleep apnea) Grandfather Hypertension Heart disease Uncle Cancer Surgical History 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 ; Denies fever(s) ENT ENT ED: Reports rhinorrhea; Denies ear pain or sore throat Cardiovascular Cardiovascular: Denies chest pain or palpitations Respiratory/Chest Respiratory/Chest: Reports cough, dyspnea and sputum Gastrointestinal Gastrointestinal: Reports nausea, vomiting and other Details: She did vomit a couple times. Last time was earlier this afternoon. She has ate and drank since Genitourinary Genitourinary ED: Denies dysuria or hematuria Musculoskeletal Musculoskeletal: Denies arthralgias or myalgias Integumentary Denies rash Neurologic Neurologic: Denies headache(s) Psychiatric Psychiatric: Reports anxiety Endocrine Endocrinology: Denies polydipsia or polyuria Hematologic/Lymphatic Hematologic/Lymphatic: Denies easy bruising Allergic/Immunologic Allergic/Immunologic ED: Denies mouth swelling or urticaria EXAM Physical Exam Const Vital Signs: 02/02/21 18:14 02/02/21 18:50 02/02/21 20:04 Temperature 100.2 F H Temperature Source Temporal Pulse Rate 83 64 Respiratory Rate 18 22 H Respiratory Effort Short of Breath Labored Non-Labored Short of Breath Respiratory Depth Shallow Respiratory Pattern Tachypnea Tachypnea Blood Pressure 167/95 H Blood Pressure Mean 119 Pulse Ox 96 98 Oxygen Delivery Method Room Air Room Air 02/02/21 20:14 Temperature Temperature Source Pulse Rate 81 Respiratory Rate 21 H Respiratory Effort Respiratory Depth Respiratory Pattern Blood Pressure Blood Pressure Mean Pulse Ox 99 Oxygen Delivery Method Room Air Positive well nourished, well developed and obese Constitutional Narrative: Patient carries on normal conversation. There is a mild dry cough in the room. Her family member in the room also is coughing. General Appearance ED: well developed and NAD Nutritional Appearance: obese HEENT Reports moist mucous membranes Negative for tenderness Eyes General Eye ED: Negative for pale conjunctiva or scleral icterus Neck no lymphadenopathy Resp normal respiratory effort and clear to auscultation bilaterally Resp Narrative: Patient does have some diffuse wheezing. Auscultation: wheezes; Negative for rales or rhonchi Cardio regular rate, regular rhythm and no murmurs GI non-tender Palpation: soft Back/Spine normal to inspection Extremity normal to inspection General Extremety ED: Negative for edema or tenderness General Extremity: Negative for edema Neuro oriented x3 Sensorium / Orientation: alert Psych mental status grossly normal Skin no wounds Lesions: no lesions Rashes: no rashes MDM MDM MDM Narrative Medical decision making narrative: Patient's blood work shows normal hemoglobin white count. Electrolytes are unremarkable. Chest x-ray looked at by me and read by radiology shows no acute process. Patient is feeling better. Patient request something for cough. We will write for Guerda Vidales I will put her on a short course of steroids. She has albuterol at home. Her Covid is also negative. Lab Data Attestation: I reviewed the patient's lab results. Labs: Laboratory Results - last 24 hr 02/02/21 02/02/21 19:50 19:50 WBC 9.1 RBC 5.23 Hgb 14.2 Hct 43.6 MCV 83.4 MCH 27.2 MCHC 32.6 RDW Std Deviation 46.6 H RDW Coeff of Carolyn 15.3 H Plt Count 308 MPV 9.4 Immature Gran % (Auto) 0.300 Neut % (Auto) 58.4 Lymph % (Auto) 24.5 Morrison % (Auto) 10.0 Eos % (Auto) 5.8 H Baso % (Auto) 1.0 Absolute Neuts (auto) 5.3 Absolute Lymphs (auto) 2.22 Nucleated RBC % 0 Sodium 135 L Potassium 3.9 Chloride 104 Carbon Dioxide 27.0 Anion Gap 4 L BUN 7 Creatinine 0.57 Estim Creat Clear Calc 149.27 Est GFR (MDRD) Af Amer 168 Est GFR (MDRD) Non-Af 139 BUN/Creatinine Ratio 12.3 Glucose 90 Calcium 9.0 Radiography Diagnostic Testing: Radiology Impression Chest X-Ray 02/02/21 20:25 IMPRESSION: No radiographic evidence of acute cardiopulmonary disease. Electronically Signed: Manuel JohnstonDO at 21:22 EDT Tel , Service support , EKG Initial EKG: Comments: EKG done for dyspnea in a patient with prior normal sinus rhythm with slight left bundle pattern. This is likely from her prior surgery. No sign of acute infarct or ischemia. HI interval and QTc are normal. Discharge Plan Triage Chief Complaint: Shortness of Breath ED Provider: David Cagle Dx/Rx/DC Orders Clinical Impression: Asthma exacerbation, Viral URI Instructions: ED Asthma, Acute (Adult) Prescriptions: New prednisone 20 MG tablet 60 mg PO DAILY Qty: 15 RF: 0 benzonatate [benzonatate] 100 MG capsule 100 mg PO TID PRN PRN (Reason: Cough) Qty: 20 RF: 0 ondansetron 4 mg tablet,disintegrating 4 mg PO Q8H PRN (Reason: nausea and vomiting) Qty: 10 RF: 0 No Action albuterol sulfate 90 mcg/actuation HFA aerosol inhaler 2 puff INHALATION Q4H PRN (Reason: sob) RF: 0 ibuprofen 800 MG tablet 800 mg PO TID PRN PRN (Reason: Pain Or Fever) Qty: 20 RF: 0 sertraline [Zoloft] 50 mg Tablet 50 mg PO DAILY RF: 0 Primary Care Provider: Ken Barnes Referrals: Ken Barnes MD [Primary Care Provider] - 3-5 Days Disposition Disposition: Home, Self Care
[2021-02-02] MEDS: MethylPREDNISolone 125 MG/2 ML Vial IV (20:01)
[2021-02-02] MEDS: 0.9% Normal Saline 1,000 ML 999 ML IV (20:01)
[2021-02-02] MEDS: Ondansetron 4 MG/2 ML Vial IV (20:01)
[2021-02-02] MEDS: Ipratropium/Albuterol Sulfate 3 ML AMPUL.NEB INHALATION (20:03)
[2021-02-02] MEDS: Albuterol 2.5 MG/3 ML VIAL.NEB. INHALATION (20:03)
[2021-02-02 20:04] VITALS: PULSE 64; RESP 22; O2SAT 98
[2021-02-02 20:14] VITALS: PULSE 81; RESP 21; O2SAT 99
[2021-02-02 20:18] LABS: Anion Gap 4 (5-15); BUN 7 mg/dL (7-18); BUN/Creat Ratio 12.3 RATIO (10-20); Chloride 104 mmol/L (98-107); Creatinine, Serum 0.57 mg/dL (0.55-1.02); EST Glomerular Filtration Rate 139 mL/min (>60); Est Glom Filt Rate - Afr Amer 168 mL/min (>60); Estimated Creatinine Clearance 149.27 ml/min; Glucose 90 mg/dL (74-106); Potassium 3.9 mmol/L (3.5-5.1); Sodium Level 135 mmol/L (136-145)
[2021-02-02 20:20] LABS: Absolute Lymphocyte Count 2.22 X10^3/uL (0.83-4.51); Absolute Neutrophil Count 5.3 X10^3/uL (2.0-7.7); Basophil# 0.09 X10^3/uL; Eosinophil# 0.53 X10^3/uL; Eosinophils% 5.8 % (0-5); Hematocrit 43.6 % (37-47); Hemoglobin 14.2 g/dL (12.0-15.0); Lymphocyte # 2.22 X10^3/ul (0.83-4.51); Lymphocyte % 24.5 % (19-41); Mean Corp Hgb Conc 32.6 g/dL (32-36); Mean Corpuscular Hgb 27.2 pg (27.0-32.0); Mean Corpuscular Volume 83.4 fL (81-99); Mean Platelet Vol. 9.4 fl (6.2-12.0); Monocyte# 0.91 X10^3/uL; NRBC Flagged by Analyzer 0 % (0-5); Neutrophil # 5.28 X10^3/uL (2.7-7.7); Neutrophil % 58.4 % (47-70); Platelet Count 308 K/mm3 (150-450); RBC Distribution Width CV 15.3 % (11.6-14.6); RBC Distribution Width SD 46.6 fl (35.1-43.9); Red Blood Count 5.23 M/mm3 (4.2-5.4); White Blood Count 9.1 K/mm3 (4.4-11.0)
--- NOTE | 2021-02-02 20:25 | RAD_ITS ---
INDICATION: cough EXAMINATION/TECHNIQUE: X-RAY - XR Chest 2 Views COMPARISON: Chest x-ray 06/04/2019 FINDINGS: LINES/DEVICES: None. Sternotomy wires are present from prior thoracotomy. Wires are intact. LUNGS: No consolidation, edema or effusion. No pneumothorax. MEDIASTINUM AND CARDIOVASCULAR STRUCTURES: Cardiac silhouette not enlarged. Central airways and mediastinal contour are unremarkable. BONES AND SOFT TISSUES: Unremarkable. RAD/Chest PA and Lateral IMPRESSION: No radiographic evidence of acute cardiopulmonary disease. Electronically Signed: Manuel Johnston DO at 21:22 EDT Tel , Service support ,
[2021-02-02 21:51] VITALS: PULSE 88; RESP 15; O2SAT 99
== END 2021-02-02 21:51 | disposition home or self-care (01) ==
PROVIDERS: Emergency Provider Emergency Medicine; PCP Family Medicine
DX: J45.901 Unspecified asthma with (acute) exacerbation (principal); J06.9 Acute upper respiratory infection, unspecified; I44.7 Left bundle-branch block, unspecified; E28.2 Polycystic ovarian syndrome; E66.01 Morbid (severe) obesity due to excess calories; Z68.42 Body mass index [BMI] 45.0-49.9, adult; F32.9 Major depressive disorder, single episode, unspecified; G47.33 Obstructive sleep apnea (adult) (pediatric); I35.0 Nonrheumatic aortic (valve) stenosis; Z87.74 Personal history of (corrected) congenital malformations of heart and circulatory system; Z79.899 Other long term (current) drug therapy; F17.210 Nicotine dependence, cigarettes, uncomplicated
CPT/HCPCS: 71046; 80048; 85025; 87426; 93005; 94640; 96361; 96374; 96375; 99251; 99284; G0463; J2405

== ENCOUNTER → 2021-02-06 06:13 | Outpatient (CLI) | payer MEDICAID, SELFPAY ==
--- NOTE | 2021-02-06 08:13 | STRESSREP_ITS ---
Stress Test Report Date: 02-06-2021 Procedure: Pharmacologic stress nuclear imaging study Indications: Chest pain; valvular heart disease/aortic valve stenosis Consent: Per the patient Procedure: The patient underwent pharmacologic (Regadenoson 0.4mg ) evaluation with a peak heart rate of 102 beats per minute (51%predicted maximal heart rate) and a peak blood pressure of 170/93 mmHg. The baseline ECG demonstrated sinus rhythm; left bundle branch block. The peak pharmacologic ECG demonstrated no obvious ECG changes. There were no cardiac dysrhythmias pretest, during pharmacologic infusion, or recovery. There was no complaint of chest discomfort during pharmacologic infusion or recovery. The examination was discontinued secondary to completion of protocol. Impression: 1. Pharmacologic (Regadenoson) evaluation 2. Peak pharmacologic ECG with continued left bundle branch block pattern with no obvious ECG changes. 3. There were no cardiac dysrhythmias pretest, during pharmacologic infusion, or recovery. 4. Nuclear images pending Myocardial perfusion imaging study: Technique: The patient was injected with 14.8 millicuries of technetium 99m Cardiolite and subsequently rest SPECT Cardiolite nuclear imaging was obtained in the horizontal long, vertical long, and short axis views. The patient underwent pharmacologic (Regadenoson) evaluation with a peak heart rate of 102 beats per minute (51% percent predicted maximal heart rate) and a peak blood pressure of 170/93 mmHg. The patient was injected with 44.5 millicuries of technetium 99m Cardiolite and subsequently stress SPECT Cardiolite nuclear imaging was obtained in the horizontal long, vertical long, and short axis views. A gated Cardiolite study at peak stress was obtained. Interpretation: Rest and stress SPECT Cardiolite nuclear imaging status post realignment, normalization, and attenuation correction demonstrate the appearance of body motion during image acquisition and at rest the appearance of subtle diminished tracer uptake in portions of the mid anterior segments and status post stress somewhat more prominent diminished myocardial perfusion/tracer uptake in the mid anterior to distal anterior segments. There is end systolic thickening and brightening. The gated Cardiolite study demonstrates myocardial thickening and inward wall motion. The reported LVEF is 61%. Impression: 1. Rest and stress SPECT her nuclear imaging demonstrate the appearance of body motion during image acquisition and myocardial perfusion changes at rest which appear to be more prominent status post stress in the mid to distal anterior segments potentially compatible with shifting soft tissue attenuation/artifact, however, an element of stress-induced myocardial ischemia cannot necessarily be excluded. 2. The gated Cardiolite study reports an LVEF of 61%. This note was generated with [employer] software. It may contain incorrect words, spelling, and punctuation that were not noted in checking the note before signing.
== END ==
PROVIDERS: PCP Family Medicine; Referring Provider Nurse Practitioner Family; Visit Provider Nurse Practitioner Family
DX: I35.0 Nonrheumatic aortic (valve) stenosis (principal); R07.9 Chest pain, unspecified
CPT/HCPCS: 78452; 93017; A9500; A4216; J2785

== ENCOUNTER → 2021-02-22 13:41 | Outpatient (CLI) | payer MEDICAID, SELFPAY ==
[2021-02-22 13:59] VITALS: BP 135/87; PULSE 70; RESP 18; O2SAT 98; BMI 47.0
--- NOTE | 2021-02-22 14:03 | CT_ITS ---
EXAM: CT CHEST WITH INTRAVENOUS CONTRAST CLINICAL INDICATION: PAIN -- Limited Chest over-read ONLY TECHNIQUE: Helically acquired images were obtained of the chest with intravenous contrast. This CT exam was performed using one or more of the following dose reduction techniques: automated exposure control, adjustment of the mA and/or kV according to patient size, and/or use of iterative reconstruction technique. This report was created using [employer] report generation technology. Overread only. Cardiac structures described by cardiology service in a separate report. CONTRAST: IV 50mL [id number] COMPARISON: None. FINDINGS: LUNGS AND PLEURAL SPACES: Unremarkable as visualized. No mass. No consolidation or edema. No pleural effusion or thickening. No pneumothorax. HEART: Dictated by the referring service. Sternotomy wires noted. MEDIASTINUM: Unremarkable as visualized. No mediastinal or hilar adenopathy. Esophagus is unremarkable. No hiatal hernia. BONES/JOINTS: Unremarkable as visualized. No suspicious lytic or blastic abnormality. CT/Limited Chest CT w/CCTA IMPRESSION: No incidental CT findings. Electronically Signed: Jorge Sanchez MD ([place]) at 17:13 EDT , Service support ,
[2021-02-22 14:14] VITALS: BP 135/87; PULSE 70
[2021-02-22] MEDS: Nitroglycerin SL (ED/IMG/CATH) 0.4 MG TABLET SL (14:14)
[2021-02-22 14:20] VITALS: BP 139/74; PULSE 71; RESP 16; O2SAT 98
--- NOTE | 2021-02-28 15:25 | CCTA.WCONT ---
CCTA w/Cont Coronary Arteries Date of Study:: 02/22/21 Chest Pain; Abnormal Stress Nuclear Imaging Study Consent:: Per Patient CCTA with cont Coronary Artery High-resolution Computed Tomographic imaging of the chest was performed on 02-22-2021 with particular attention paid to the coronary arteries. The patient tolerated the procedure well and there were no complications. The results of the coronary angiography are provided below. LEFT MAIN CORONARY ARTERY: The left main coronary artery appears to be a large vessel giving rise to the left anterior descending and left circumflex coronary arteries. The left main coronary artery appears angiographically within normal limits. LEFT ANTERIOR DESCENDING CORONARY ARTERY: The left anterior descending coronary artery is a large vessel which courses to the LV apex. The left anterior descending coronary artery appears angiographically within normal limits. LEFT CIRCUMFLEX CORONARY ARTERY: The left circumflex coronary artery is a large vessel. The left circumflex coronary artery appears angiographically within normal limits. RIGHT CORONARY ARTERY: The right coronary artery appears to be a large dominant vessel. The right coronary artery appears angiographically within normal limits. THORACIC AORTA: The thoracic aorta appears angiographically within normal limits. PULMONARY ARTERY: The main pulmonary artery and right and left pulmonary arteries appear to be patent with no obvious filling defects. LEFT ATRIUM/APPENDAGE: The left atrium/appendage does not appear to demonstrate any obvious filling defects. MITRAL VALVE: The mitral valve appears to be bileaflet. AORTIC VALVE: The aortic valve appears to be trileaflet. LEFT VENTRICLE: Based upon the images obtained there appears to be grossly normal left ventricular size, wall motion, and systolic function. CORONARY CALCIUM SCORE: A coronary calcium score was not obtained. A/P Addt'l Comments Addt'l Comments This note was generated using a voice recognition system and there may be incorrect words, spelling or punctuation that were not noted when reviewing the office note prior to saving.
== END ==
PROVIDERS: PCP Family Medicine; Referring Provider Nurse Practitioner Family; Visit Provider Nurse Practitioner Family
DX: R07.9 Chest pain, unspecified (principal); R94.39 Abnormal result of other cardiovascular function study
CPT/HCPCS: 75574; 76380; Q9967

== ENCOUNTER 2021-08-15 14:00 | Outpatient (RCR) | payer MEDICAID, SELFPAY ==
--- NOTE | 2021-07-18 15:06 | HP.PTEVAL ---
Patient's Visit Information BILLIE PLATT is a 26 year old F referred to Physical Therapy by RUEL Collins with a diagnosis of Neck and Back Pain. Date of Evaluation: 07/18/21 Physical Therapist: Bhavya Elizalde DPT - Visit Plan Frequency: 2x /Week Duration: 4 Weeks Plan: Aquatic- Focus on postural correction- scapular and core strength/stabilization. Pain mgmt - Subjective Patient reports that she has been having problems with her chest- she has had 2 open heart surgeries and she has pain in her neck and pack. She has numbness from to fingers on the left and the left foot. She had her first surgery at 10 years old and the second was 4 years ago. Neck and back started about 4 years ago. She feels that she has a knot in her shoulder blade that really bothers her. Saw Dr. Head who reported that she had to do PT prior to MRI of her spine- she has not had injections- but gave her Gabapentin- they worked well but then they stopped- blacked out when she took the 300's. Back: Worst: 01/02 Agg: lifting, standing or sitting to long (20-30 min). Eases: cracking her back- sit on the floor con cross and roll backwards Best: 07/05 Describes the pain as sharp/shooting and some spots that are achy. She reports the pain is in the low back. The N/T comes and goes- its 2x a day and it stays for about an hour- and there is nothing that makes it better- she is normally laying on her left side or when she has her left leg in a DAVID position. No loss or change in bowel or bladder. Patient reports that she is more active- chasing kids around (2 year old and 4 year old)- not hers and cleaning the house. 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 Neck: pain is located in the top of the hairline to the middle of the shoulder blades- the pain is there all the time- describes the pain as sharp/shooting. Right hand dominate. Pain radiates down the left arm. Worst: 02/02 Agg: everything Eases: nothing Best: 08/02. Followed by cardiology and has no limitations. Does report SANTIAGO- feels like she has an ear infection and works it way into the top of the head- reports dizziness. Goals: wants to feel better- or at least get the MRI. Sleep: disturbed- hard to get comfortable- belly sleeper. PMHx/Meds: see list in chart. - Objective Posture: FH, RS- can correct with verbal and tactile cues but does not maintain. Gait: toes turned out into rotation due to increase body mass- good arm swing and trunk rotation. Stairs: asc/desc 8 recip. HR/TR: able without UE A. SLS: 15 sec then LOB- moderate hip drop. ROM: Lumbar and LE: WFL no pain, UE: WNL, Cervical: WNL pain with SB and rotation to the left. Strength: Knee/Ankle: 5/5, Hip: 4/5 throughout, Core: fair minus, Scap: fair minus, Shoulder: 4+/5, Elbow: 5/5, Wrist: 5/5 Pharmacy Customer Care Specialist: equal and strong. Flex: HS: moderate Gastroc: moderate. Palpation: tender along paraspinals from occiput to sacrum. SB Cervical and Rotation to the left - Special Tests L/S Slump test left side: Negative L/S Slump test right side: Negative L/S Left Straight Leg Raise: Negative L/S Right Straight Leg Raise: Negative R Hip Scour: Negative R Hip Quadrant - Intraarticular Pathology: Negative R Hip DAVID - Intraarticular Pathology: Negative R Hip FADDIR - Labrum: Negative L Hip Scour: Negative L Hip Quadrant - Intraarticular Pathology: Negative L Hip DAVID - Intraarticular Pathology: Negative L Hip FADDIR - Labrum: Negative R Shoulder Empty Can - SS: Negative R Shoulder Belly Press - SupScap: Negative R Shoulder Neer - Impingement: Negative R Shoulder Myers Alexander - Impingement: Negative L Shoulder Empty Can - SS: Negative L Shoulder Belly Press - SupScap: Negative L Shoulder Neer - Impingement: Negative - Balance/Special Test Scores Oswestry Low Back Score: 16 - Goals Goal 1:: Patient will be I with HEP and progression Goal Time Frame: 4-6 Weeks Goal 2:: Patient will maintain proper posture t/o tx session to demo increased core and scap s/s Goal Time Frame: 4-6 Weeks Goal 3:: Patient will report subjective pain improvement by 80% Goal Time Frame: 4-6 Weeks - Rehabilitation Potential Physical Therapy Diagnosis: Patient presents with hypomobility- she has decreased pain free ROM, LE and core/scapular strength/stabilization and muscular endurance leading to poor posture and increased pain with ADL's. Rehabilitation Potential: Good - Anticipated Interventions Patient/Client Instruction: Educate patient on: Benefits of Fitness Program Therapeutic Exercise to Include: Strength training, Endurance training, Balance training, Coordination, Agility training, Body mechanics, Postural training, Flexibilty training, Gait and locomotor training, Neuromotor development, In an aquatic setting, Passive ROM, Active ROM, Dynamic Lumbar Stabilization, Scapular Strength/Stabilization For the Purpose of:: To improve muscle performance and motor function Thank you for the opportunity to evaluate your patient. For Medicare and Medicare HMO plans, please review the plan of care and approve it. It will need to be FAXED BACK to us at [phone] for Medicare purposes. For Medicare only, by signing this I certify the plan of care. Please let me know if there are questions or concerns regarding this plan of care. Physician Signature: Date:
--- NOTE | 2021-08-15 15:06 | HP.PTDCSUM_ITS ---
It has been my pleasure to treat BILLIE HANKS referred by ISABELLA Collins, with the diagnosis of Neck and Back Pain for a total of 9 visit(s). Discharge Date: Please see the following information for a summary of their discharge status. Subjective: Patient reports that her chest has stopped hurting but her back kills her and her leg is numb more often. Her pink toe is numb now- and has moved from her leg down into the toes. She goes back to the pain doctor in the beginning but she can't get into her PCP for a few months due to no openings. Worst: 02/02 Best: 08/02. Pain level today is a 7/10. Nothing really makes her feel better. She does not have any chest pain anymore. Her legs don't hurt as bad if she does the stretches. She can now walk to the park and back with 3 stops. Neck Pain Intensity (Out of 10): 0 Low back Pain Intensity (Out of 10): 0 LUE Pain Intensity (Out of 10): 0 LLE Pain Intensity (Out of 10): 0 % Improvement: 20 Objective/Function: Posture: FH, RS- can correct with verbal and tactile cues but does not maintain. Gait: toes turned out into rotation due to increase body mass- good arm swing and trunk rotation. Stairs: asc/desc 8 recip. HR/TR: able without UE A. SLS: 10 sec then LOB- moderate hip drop. ROM: Lumbar and LE: WFL with pain UE: WNL, Cervical: WNL with no pain Strength: Knee/Ankle: 5/5, Hip: 4+/5 throughout, Core: fair minus, Scap: fair minus, Shoulder: 5/5, Elbow: 5/5, Wrist: 5/5 Industrial Organizational Psychologist: equal and strong. Flex: HS: moderate Gastroc: moderate. Palpation: tender along paraspinals from occiput to sacrum. SB Cer vical and Rotation to the left. - Special Tests. L/S Slump test left side: Negative. L/S Slump test right side: Negative. L/S Left Straight Leg Raise: Negative. L/S Right Straight Leg Raise: Negative. R Hip Scour: Negative. R Hip Quadrant - Intraarticular Pathology: Negative. R Hip DAVID - Intraarticular Pathology: Negative. R Hip FADDIR - Labrum: Negative. L Hip Scour: Negative. L Hip Quadrant - Intraarticular Pathology: Negative. L Hip DAVID - Intraarticular Pathology: Negative. L Hip FADDIR - Labrum: Negative. R Shoulder Empty Can - SS: Negative. R Shoulder Belly Press - SupScap: Negative. R Shoulder Neer - Impingement: Negative. R Shoulder Myers Alexander - Impingement: Negative. L Shoulder Empty Can - SS: Negative. L Shoulder Belly Press - SupScap: Negative. L Shoulder Neer - Impingement: Negative Goal 1:: Patient will be I with HEP and progression Goal Progress: Progressing Goal 2:: Patient will maintain proper posture t/o tx session to demo increased core and scap s/s Goal Progress: Progressing Goal 3:: Patient will report subjective pain improvement by 80% Goal Progress: Progressing Plan: 08/15/21: Discharge to I home exercise program. *Add gastroc, step ups, and rest of amb variations next. *F/U with new HEP tasks next. Aquatic- Focus on postural correction- scapular and core strength/stabilization. Pain mgmt If there are questions or concerns regarding this patient's physical therapy, please feel free to call me at [phone]. Thank you for the referral of this patient. Sincerely, Bhavya Elizalde, KELLEYT Balance/Gait/Functional tests - Balance/Special Test Scores Oswestry Low Back Score: 17
== END 2021-08-15 19:00 | disposition home or self-care (01) ==
LOC: PT 14:00
PROVIDERS: PCP Family Medicine; Referring Provider Nurse Practitioner Family; Visit Provider Nurse Practitioner Family
DX: M54.9 Dorsalgia, unspecified (principal); M54.2 Cervicalgia
CPT/HCPCS: 97113; 97164

== ENCOUNTER → 2021-09-20 | Outpatient (CLI) | payer MEDICAID, SELFPAY ==
--- NOTE | 2021-09-20 11:24 | MRI_ITS ---
STUDY: MRI LUMBAR SPINE WITHOUT CONTRAST REASON FOR EXAM: Female, 26 years old. RADICULOPATHY, LOW BACK PAIN, LEFT LEG NUMBNESS TECHNIQUE: Standardized fat and water weighted pulse sequences were obtained in the sagittal and axial planes. COMPARISON: None FINDINGS: No marrow edema or compression deformity or fracture is seen. Normal spinal ligaments. There is straightening of the normal lumbar lordosis. There is no substantial scoliosis. Normal conus medullaris that terminates at the L1-L2 level. T12-L1: Normal endplates. Normal disc height, hydration and morphology. Normal bilateral facet joints. Normal central canal and bilateral lateral recesses. Normal bilateral intervertebral neural foramina. L1-2: Normal endplates. Normal disc height, hydration and morphology. Normal bilateral facet joints. Normal central canal and bilateral lateral recesses. Normal bilateral intervertebral neural foramina. L2-3: Normal endplates. Normal disc height, hydration and morphology. Normal bilateral facet joints. Normal central canal and bilateral lateral recesses. Normal bilateral intervertebral neural foramina. L3-4: Normal endplates. Normal disc height, hydration and morphology. Normal bilateral facet joints. Normal central canal and bilateral lateral recesses. Normal bilateral intervertebral neural foramina. L4-5: Normal endplates. Diffuse disc desiccation and mild disc space narrowing without bulging or herniation of disc. Slight retrolisthesis of L4 and L5 of no more than 2 mm. Normal bilateral facet joints. Normal central canal and bilateral lateral recesses. Normal bilateral intervertebral neural foramina. L5-S1: Mild endplate degenerative changes. Diffuse disc desiccation and mild disc space narrowing with mild annular bulging. Mild left facet joint hypertrophy. Normal right facet joint. Normal central canal and bilateral lateral recesses. Normal bilateral intervertebral neural foramina. Normal visualized sacral ala. Normal visualized paraspinous soft tissue structures. MRI/Spine Lumbar (Routine) IMPRESSION: 1. Mild degenerative changes of L4-L5 and L5-S1. Electronically Signed: Mike Knox MD at 13:17 EDT ,
== END | disposition home or self-care (01) ==
PROVIDERS: PCP Family Medicine; Referring Provider Nurse Practitioner Family; Visit Provider Nurse Practitioner Family
DX: M54.17 Radiculopathy, lumbosacral region (principal)
CPT/HCPCS: 72148

== ENCOUNTER 2021-10-10 18:27 | Emergency (ER) | payer MEDICAID, SELFPAY ==
[2021-10-10 18:28] VITALS: BP 141/80; PULSE 67; RESP 16; TEMP 36.1; O2SAT 96; BMI 46.8
== END 2021-10-10 19:31 | disposition left against medical advice (07) ==
LOC: ED 19:34
PROVIDERS: PCP Family Medicine
DX: Z53.21 Procedure and treatment not carried out due to patient leaving prior to being seen by health care provider (principal)

== ENCOUNTER 2022-01-28 22:16 | Emergency (ER) | payer MEDICAID, SELFPAY ==
[2022-01-28 22:17] VITALS: BP 147/66; PULSE 85; RESP 25; TEMP 36.7; O2SAT 100; BMI 45.4
--- NOTE | 2022-01-28 22:21 | ED.RN ---
PT NON COMPLIANT WITH HOME MEDS. GABAPENTIN AND ANTIDEPRESSANT
--- NOTE | 2022-01-28 22:33 | EDS_ITS ---
HPI History of Present Illness Chief Complaint: Chest Pain Informant: patient Onset/Context/Timing Onset: Days (3) Activity at onset: gradual Timing: Intermittent Quality: Positive for - (Like a bubble in my chest) Location: Substernal Worsened By: Breathing and Coughing Relieved By: Nothing Associated Symptoms: Positive for Dyspnea; Negative for Nausea, Vomiting, Diaphoresis, Cough, Fever, Lightheadedness, Acid Reflux or Palpitations Narrative Narrative: Patient is a is with chest pain began 3 days ago. Patient states it has been intermittent for the last 3 days. Patient states it feels like a bubble in her chest. Patient states it is over the substernal area. Patient states it is worse with deep breathing and coughing. Patient states nothing seems to help with it. Patient admits to some shortness of breath. Patient denies any nausea or vomiting. Patient denies any diaphoresis. CVD Risk Factors: Positive for Smoking; Negative for Hypertension, Diabetes, Hypercholesterolemia or Family History 1' </=55 PE Risk Factors: Positive for Recent Travel/Surgery; Negative for Recent Immobilization, Prior DVT or PE, Cancer or OCP + Smoking + >/=35 TAD Risk Factors: Negative for Hypertension [facility], [facility] Medical History Aortic stenosis Asthma Chest pain Depression Morbid obesity QUINTON (obstructive sleep apnea) PCOS (polycystic ovarian syndrome) Allergy/AdvReac Type Severity Reaction Status Date / Time doxycycline Allergy Intermediate rash Verified 01/28/22 22:22 Penicillins Allergy Hives Verified 01/28/22 22:22 Tetanus Vaccines and Toxoid Allergy Rash Verified 01/28/22 22:22 Family History Mother COPD (chronic obstructive pulmonary disease) Thyroid disorder Asthma QUINTON (obstructive sleep apnea) Father Diabetes Myocardial infarction Sister COPD (chronic obstructive pulmonary disease) Asthma Thyroid disorder QUINTON (obstructive sleep apnea) Brother Diabetes Grandmother COPD (chronic obstructive pulmonary disease) Hypertension Asthma CVA (cerebral vascular accident) Thyroid disorder QUINTON (obstructive sleep apnea) Grandfather Hypertension Heart disease Uncle Cancer Surgical History History of cholecystectomy 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) Social History Smoking Status: Current every day smoker tobacco type: cigarettes alcohol intake: never substance use type: marijuana caffeine: Yes (3-45 ounce cups of mountain dew and 1 gallon of tea daily) Type: carbonated beverages and tea ROS ROS ED Constitutional Constitutional ED: Denies chills or fever(s) Eyes Eyes: Reports blurry vision; Denies diplopia ENT ENT ED: Denies rhinorrhea or sore throat Cardiovascular Cardiovascular: Reports chest pain; Denies palpitations Respiratory/Chest Respiratory/Chest: Reports dyspnea; Denies cough Gastrointestinal Gastrointestinal: Denies abdominal pain, nausea or vomiting Genitourinary Genitourinary ED: Denies dysuria or hematuria Musculoskeletal Musculoskeletal: Denies back pain or neck pain Integumentary Denies abscess or rash Neurologic Neurologic: Reports headache(s); Denies weakness Allergic/Immunologic Allergic/Immunologic ED: Denies mouth swelling or urticaria EXAM Physical Exam Const Vital Signs: 01/28/22 22:17 01/28/22 22:19 01/28/22 22:41 Temperature 98.1 F Temperature Source Oral Pulse Rate 85 Respiratory Rate 25 H Respiratory Effort Short of Breath Blood Pressure 147/66 H Blood Pressure Mean 93 Pulse Ox 100 99 Oxygen Delivery Method Room Air Room Air 01/28/22 22:49 01/28/22 23:26 01/29/22 00:00 Temperature Temperature Source Pulse Rate 67 60 64 Respiratory Rate 18 16 Respiratory Effort Blood Pressure 140/61 H 135/73 H 127/48 H Blood Pressure Mean 93 74 Pulse Ox 99 98 Oxygen Delivery Method Room Air Room Air 01/29/22 01:00 Temperature Temperature Source Pulse Rate 71 Respiratory Rate 16 Respiratory Effort Blood Pressure 127/58 H Blood Pressure Mean 81 Pulse Ox 99 Oxygen Delivery Method Room Air Positive well nourished, well developed and obese General Appearance ED: well developed and NAD Nutritional Appearance: obese HEENT normocephalic and atraumatic Eyes PERRL and EOMs intact bilaterally Neck supple and no JVD Chest Wall Chest Narrative: There is reproducible tenderness over the anterior chest wall. There is no bony crepitance or step-off. There is no edema or ecchymosis. Chest: tenderness sternum Resp normal respiratory effort and clear to auscultation bilaterally Effort and Inspection: Negative for respiratory distress Cardio regular rate, regular rhythm and no murmurs GI normal to inspection, nondistended, normoactive bowel sounds, soft to palpation, non-tender and non-distended Extremity normal to inspection General Extremety ED: Negative for edema or tenderness General Extremity: Negative for edema Neuro oriented x3, CN's II-XII intact bilaterally and no sensory deficits noted Sensorium / Orientation: awake and alert Motor Exam: strength 5/5 throughout Psych mental status grossly normal Heart Score History: Slightly/Non-Suspicious ECG: Nonspecific Repolarization Age: </= 45 years Risk Factors: 1 or 2 Risk Factors Troponin: </= Normal Limit Score: 2 MDM MDM MDM Narrative Medical decision making narrative: Patient was given aspirin here. The EKG was obtained. On my interpretation, it shows a normal sinus rhythm with a rate of 71. There is a left bundle branch block pattern noted. There are no acute ST or T wave changes. This was unchanged compared to previous EKG. portable 1 view chest x-ray was obtained. On my interpretation, lung gordon are clear. There is normal cardiac silhouette. Bony thorax is normal. There is no acute process noted. Radiologist also interpreted the x-ray and agrees. CBC shows a slight leukocytosis of 13.8. Basic metabolic profile was within normal limits. Initial high-sensitivity troponin was normal. D-dimer was slightly elevated at 0.78. Because of this, CTA of the chest was obtained. There is no evidence of pulmonary embolism or aortic dissection. This was interpreted by the radiologist and reviewed by myself. Patient does not want to wait for repeat troponin. Patient wants to go home. Patient has a HEART score of 2. Patient was advised that this is low risk for acute cardiac event. Patient was instructed to follow-up with her primary care physician in 5 to 7 days. Patient understood and was agreeable with the plan. All questions were answered. Lab Data Attestation: I reviewed the patient's lab results. Labs: Laboratory Results - last 24 hr 01/28/22 01/28/22 01/28/22 20:40 20:40 20:40 WBC 13.8 H RBC 5.06 Hgb 13.5 Hct 43.0 MCV 85.0 MCH 26.7 L MCHC 31.4 L RDW Std Deviation 45.5 H RDW Coeff of Carolyn 14.7 H Plt Count 345 MPV 9.4 Immature Gran % (Auto) 0.600 Neut % (Auto) 63.9 Lymph % (Auto) 23.0 Casey % (Auto) 7.6 Eos % (Auto) 4.1 Baso % (Auto) 0.8 Absolute Neuts (auto) 8.8 H Absolute Lymphs (auto) 3.16 Nucleated RBC % 0 D-Dimer Quant (PE/DVT) 0.78 H* Sodium 137 Potassium 3.9 Chloride 105 Carbon Dioxide 27.0 Anion Gap 5 BUN 8 Creatinine 0.59 Estim Creat Clear Calc 142.98 Est GFR (MDRD) Af Amer 162 Est GFR (MDRD) Non-Af 133 BUN/Creatinine Ratio 13.7 Glucose 85 Calcium 9.2 Troponin I High Sens 6 Radiography Chest X-Ray - ED: 1 View, Read by ED Physician, Read by Radiologist and No Acute Disease Diagnostic Testing: Clinical Impression(s) from Imaging Studies Chest X-Ray 01/28/22 22:45 IMPRESSION: No acute cardiopulmonary disease. Electronically Signed: Riley Rodriguez DO at 23:03 EDT Reading Location ID and State: [address] [place] [address] Tel , Service support , Chest CTA 01/28/22 23:12 IMPRESSION: Lungs are clear. No evidence of pulmonary embolism. Cardiomegaly with median sternotomy wires are noted. Electronically Signed: Riley Rodriguez DO at 23:55 EDT Reading Location ID and State: [facility] / [place] Tel , Service support , EKG Initial EKG: Attestation: I personally reviewed and interpreted this EKG as follows: Interpretation: Sinus Rhythm (71), No Acute Injury Pattern and LBBB Prior EKG tracings: available for review Prior: Unchanged (02/02/2021) Discharge Plan Triage Chief Complaint: Chest Pain ED Provider: Misael Valle Dx/Rx/DC Orders Clinical Impression: Chest pain, Morbid obesity with BMI of 45.0-49.9, adult Instructions: ED Chest Pain, Uncertain Cause Primary Care Provider: Ken Barnes Referrals: Ken Barnes MD [Primary Care Provider] - 5-7 Days Disposition Disposition: Home, Self Care
--- NOTE | 2022-01-28 22:40 | EKG12_ITS ---
Test Reason : CP Blood Pressure : / mmHG Vent. Rate : 071 BPM Atrial Rate : 071 BPM P-R Int : 164 ms QRS Dur : 136 ms QT Int : 416 ms P-R-T Axes : 044 023 098 degrees QTc Int : 452 ms Normal sinus rhythm Left bundle branch block Abnormal ECG Confirmed by NATHALIE HANEY, KALI ([id number]), editorial intern HALEIGH COSTELLO ([id number]) on 01/29/2022 9:52:19 AM Referred By: AYO Confirmed By:KALI ZELAYA MD
[2022-01-28 22:41] VITALS: O2SAT 99
--- NOTE | 2022-01-28 22:45 | RAD_ITS ---
STUDY: X-RAY CHEST REASON FOR EXAM: Female, 26 years old. chest pain TECHNIQUE: Single AP portable view of the chest. COMPARISON: 02/02/2021 FINDINGS: The lungs are clear and expanded. There is no demonstrated pleural abnormality. Sternal cerclage wires are present from a prior sternotomy. Heart size is within normal limits. Normal mediastinum and gerald. Normal visualized pulmonary arteries. Normal visualized aortic arch and descending thoracic aorta. Normal visualized thoracic spine. Normal visualized ribs, clavicles, and shoulders. There is no demonstrated abnormality of the visualized soft tissue structures of the upper abdomen. RAD/Chest 1 View (Portable) IMPRESSION: No acute cardiopulmonary disease. Electronically Signed: Riley Rodriguez DO at 23:03 EDT ,
[2022-01-28 22:49] VITALS: BP 140/61; PULSE 67
[2022-01-28] MEDS: Nitroglycerin SL (ED/IMG/CATH) 0.4 MG TABLET SL (22:49)
[2022-01-28] MEDS: Aspirin 81 MG TAB.CHEW 324 MG PO (22:49)
[2022-01-28 22:51] LABS: Absolute Lymphocyte Count 3.16 X10^3/uL (0.83-4.51); Absolute Neutrophil Count 8.8 X10^3/uL (2.0-7.7); Basophil# 0.11 X10^3/uL; Basophil% 0.8 % (0-1); Eosinophil# 0.56 X10^3/uL; Eosinophils% 4.1 % (0-5); Hemoglobin 13.5 g/dL (12.0-15.0); Lymphocyte # 3.16 X10^3/ul (0.83-4.51); Mean Corp Hgb Conc 31.4 g/dL (32-36); Mean Corpuscular Hgb 26.7 pg (27.0-32.0); Mean Platelet Vol. 9.4 fl (6.2-12.0); Monocyte# 1.05 X10^3/uL; Monocyte% 7.6 % (0-10); NRBC Flagged by Analyzer 0 % (0-5); Neutrophil % 63.9 % (47-70); Platelet Count 345 K/mm3 (150-450); RBC Distribution Width CV 14.7 % (11.6-14.6); RBC Distribution Width SD 45.5 fl (35.1-43.9); Red Blood Count 5.06 M/mm3 (4.2-5.4); White Blood Count 13.8 K/mm3 (4.4-11.0)
[2022-01-28 23:06] LABS: D-Dimer Quantitative (DVT/PE) 0.78 FEU/ug/m (0.27-0.49)
--- NOTE | 2022-01-28 23:12 | CT_ITS ---
STUDY: CTA CHEST REASON FOR EXAM: Female, 26 years old. Elevated D-dimer RADIATION DOSAGE (If Supplied By Facility): CTDIvol = ( 26.91 ) mGy, DLP = ( 537.38 ) mGycm TECHNIQUE: The examination was performed with the intravenous administration of IV 100mL Isovue-370. Post-processing of the angiographic images was performed, with multiplanar reformation and 3D reconstruction. Individualized dose optimization techniques were used for this CT. COMPARISON: None. FINDINGS: Normal enhancement of the main pulmonary artery and right and left pulmonary arteries. Normal enhancement of the bilateral peripheral pulmonary arteries. There is no demonstrated pulmonary embolism. Normal thoracic aorta and visualized great vessels. There is no demonstrated aortic dissection. Mild cardiomegaly. Median sternotomy wires are noted. Normal mediastinum. Normal hilar regions. Normal visualized trachea and bronchi. The lungs are well expanded. Normal pulmonary parenchyma. Normal pleura. Normal chest wall structures. Normal osseous structures. Normal visualized upper abdomen. CT/CTA Chest W/WO Contrast IMPRESSION: Lungs are clear. No evidence of pulmonary embolism. Cardiomegaly with median sternotomy wires are noted. Electronically Signed: Riley Rodriguez DO at 23:55 EDT ,
[2022-01-28 23:15] LABS: Anion Gap 5 (5-15); BUN 8 mg/dL (7-18); BUN/Creat Ratio 13.7 RATIO (10-20); Calcium,Total 9.2 mg/dL (8.5-10.1); Chloride 105 mmol/L (98-107); Creatinine, Serum 0.59 mg/dL (0.55-1.02); EST Glomerular Filtration Rate 133 mL/min (>60); Est Glom Filt Rate - Afr Amer 162 mL/min (>60); Estimated Creatinine Clearance 142.98 ml/min; Glucose 85 mg/dL (74-106); Potassium 3.9 mmol/L (3.5-5.1); Sodium Level 137 mmol/L (136-145); Troponin-I HS (w/2H Reflex) 6 pg/mL (3.0-54.0)
[2022-01-28 23:26] VITALS: BP 135/73; PULSE 60; RESP 18; O2SAT 99
[2022-01-29] VITALS: BP 127/48; PULSE 64; RESP 16; O2SAT 98
[2022-01-29 00:48] LABS: Reflex Troponin-HS? (from REC) Y
[2022-01-29 01:00] VITALS: BP 127/58; PULSE 71; RESP 16; O2SAT 99
[2022-01-29 01:19] LABS: Troponin-I HS 7 pg/mL (3.0-54.0)
== END 2022-01-29 01:19 | disposition home or self-care (01) ==
PROVIDERS: Emergency Provider Emergency Medicine; PCP Family Medicine; Visit Provider Emergency Medicine
DX: R07.9 Chest pain, unspecified (principal); E66.01 Morbid (severe) obesity due to excess calories; Z68.42 Body mass index [BMI] 45.0-49.9, adult; F12.90 Cannabis use, unspecified, uncomplicated; F17.210 Nicotine dependence, cigarettes, uncomplicated; G47.33 Obstructive sleep apnea (adult) (pediatric)
CPT/HCPCS: 71045; 71275; 80048; 84484; 85025; 85379; 93005; 99285; Q9967; A4216

== ENCOUNTER 2022-03-05 11:32 | Outpatient (RCR) | payer MEDICAID, SELFPAY | END 2022-03-25 23:59 | LOC: NS 11:32 | PROVIDERS: PCP Family Medicine; Referring Provider Nurse Practitioner Family; Visit Provider Nurse Practitioner Family | DX: Z71.3 Dietary counseling and surveillance (principal); E66.01 Morbid (severe) obesity due to excess calories | CPT/HCPCS: 97802 ==

== ENCOUNTER → 2022-03-06 | Outpatient (CLI) | payer MEDICAID, SELFPAY ==
--- NOTE | 2022-03-06 11:28 | RAD_ITS ---
HISTORY: THORACIC BACK PAIN. TECHNIQUE: XR Spine Thoracic 3 Views. COMPARISON: 10/28/2019. FINDINGS: VERTEBRAE: Vertebral body heights maintained. No acute fracture identified. ALIGNMENT: No significant anterior or posterior subluxation. INTERVERTEBRAL DISCS: Preservation of intervertebral disc spaces. SOFT TISSUES: Cardiomegaly with midline sternotomy again seen. RAD/Thoracic Spine 3 Views IMPRESSION: No acute fracture or dislocation identified in the thoracic spine. Electronically Signed: Jesi Berumen MD at 11:55 EDT ,
== END | disposition home or self-care (01) ==
LOC: RAD 11:26
PROVIDERS: PCP Family Medicine; Referring Provider Nurse Practitioner Family; Visit Provider Nurse Practitioner Family
DX: M54.6 Pain in thoracic spine (principal)
CPT/HCPCS: 72072

== ENCOUNTER → 2022-04-09 | Outpatient (CLI) | payer MEDICAID, SELFPAY ==
--- NOTE | 2022-04-09 13:36 | ECHOCS_ITS ---
Reason For Study: Nonrheumatic Procedure This was a 2D Doppler, Color Flow transthoracic echocardiogram. Technically difficult study, contrast injection performed after verification of no /nursing. The study was technically difficult. Contrast injection was performed. Exam performed in department. Left Ventricle Normal LV size. Moderate concentric left ventricular hypertrophy. Left ventricular systolic function is normal. The estimated ejection fraction is 55 %. No evidence for diastolic dysfunction. No regional wall motion abnormalities noted. Right Ventricle Normal RV size. Normal systolic function. Atria Normal left atrium. Normal right atrium. No doppler evidence for ASD. Mitral Valve There is no mitral annular calcification. Normal mitral valve. Trivial mitral valve insufficiency. Tricuspid Valve Normal tricuspid valve. Trivial tricuspid valve insufficiency. Right ventricular systolic pressure estimated to be 31 mmHg. Aortic Valve Trisinus/trileaflet aortic valve. Normal aortic valve. Mild (1+) aortic valve insufficiency. Pulmonic Valve The pulmonic valve is not well visualized. Great Vessels Normal sized aortic root. Pericardium/Pleural No pericardial effusion. Medication 20 gauge I.V. with prn adaptor inserted into right arm. Diluted definity 2ml given slow IV push to enhance endocardial definition. MMode/2D Measurements & Calculations LVIDd: 5.5 cm IVSd: 1.6 cm LVOT diam: 2.0 cm LVIDs: 3.6 cm LVPWd: 1.6 cm RVDd: 3.6 cm FS: 35.1 % LVOT area: 3.2 cm2 Ao root diam: 3.3 cm LAV(MOD-bp): 50.6 ml LA A4 area: 18.7 cm2 LA dimension: 4.7 cm LAV(MOD-bp) Indexed: 21.9 ml/m2 LAV(MOD-sp2): 46.3 ml LAV(MOD-sp4): 55.7 ml RA A4 area: 14.7 cm2 Time Measurements MV dec time: 0.18 sec Doppler Measurements & Calculations MV E max tomas: 99.3 cm/sec Lat Peak E' Tomas: 10.2 cm/sec Med Peak E' Tomas: 11.0 cm/sec MV A max tomas: 59.4 cm/sec E/E' lat: 9.7 E/E' med: 9.0 MV E/A: 1.7 MV V2 max: 99.5 cm/sec MV P1/2t max tomas: 98.2 cm/sec Ao V2 max: 262.4 cm/sec MV max P.0 mmHg MV P1/2t: 62.4 msec Ao max P.6 mmHg MV V2 mean: 44.8 cm/sec MV dec slope: 461.1 cm/sec2 Ao V2 mean: 174.4 cm/sec MV mean P.1 mmHg Ao mean P.3 mmHg MV V2 VTI: 34.5 cm MVA(P1/2t): 3.5 cm2 Ao V2 VTI: 59.5 cm AI max tomas: 446.1 cm/sec PA V2 max: 140.2 cm/sec TR max tomas: 262.3 cm/sec AI max P.6 mmHg PA V2 mean: 93.9 cm/sec TR max P.5 mmHg AI dec slope: 252.2 cm/sec2 AI P1/2t: 518.1 msec ECHO/Echo Complete W/ Contrast Interpretation Summary The study was technically difficult. Contrast injection was performed. Left ventricular systolic function is normal. The estimated ejection fraction is 55 %. Moderate concentric left ventricular hypertrophy. Trivial mitral valve insufficiency. Trivial tricuspid valve insufficiency. Mild (1+) aortic valve insufficiency. Right ventricular systolic pressure estimated to be 31 mmHg. No evidence for diastolic dysfunction. Comment: Compared to the previous transthoracic echocardiogram of 01-19-2020 the aortic valve maximal velocity and the aortic valve mean gradient have increased somewhat potentially compatible with the previous subaortic membrane resection and subsequent narrowing of the subaortic area with no obvious 2D echocardiographic images considered compatible with significant aortic valve restriction. Ordering Physician: Antoinette Thompson Referring Physician: Ken Barnes Performed By: Osvaldo Campbell RCS
== END | disposition home or self-care (01) ==
LOC: CVS 13:36
PROVIDERS: PCP Family Medicine; Referring Provider Nurse Practitioner Gerontology; Visit Provider Nurse Practitioner Gerontology
DX: I35.0 Nonrheumatic aortic (valve) stenosis (principal)
CPT/HCPCS: 93306; Q9957; A4216; C8929

== ENCOUNTER 2022-10-27 22:52 | Emergency (ER) | payer MEDICAID, SELFPAY ==
[2022-10-27 22:53] VITALS: BP 167/80; PULSE 85; RESP 22; TEMP 35.8; O2SAT 98; BMI 45.6
--- NOTE | 2022-10-27 23:16 | EKG12_ITS ---
Test Reason : CP Blood Pressure : / mmHG Vent. Rate : 073 BPM Atrial Rate : 073 BPM P-R Int : 154 ms QRS Dur : 150 ms QT Int : 438 ms P-R-T Axes : 037 050 099 degrees QTc Int : 482 ms Normal sinus rhythm Left bundle branch block Abnormal ECG Confirmed by NATHALIE HANEY, KALI ([id number]), editorial manager HALEIGH COSTELLO ([id number]) on 10/29/2022 8:49:50 AM Referred By: YNES Confirmed By:KALI ZELAYA MD
--- NOTE | 2022-10-27 23:17 | RAD_ITS ---
STUDY: X-RAY CHEST REASON FOR EXAM: Female, 27 years old. Chest pain TECHNIQUE: PA and lateral views of the chest. COMPARISON: January 28, 2022 chest x-ray FINDINGS: The lungs are clear and expanded. There is no demonstrated pleural abnormality. Sternal cerclage wires are present from a prior sternotomy. There is a suggestion of a prior PDA clip. Normal mediastinum and gerald. Normal visualized pulmonary arteries. Normal visualized aortic arch and descending thoracic aorta. Normal visualized thoracic spine. Normal visualized ribs, clavicles, and shoulders. There is no demonstrated abnormality of the visualized soft tissue structures of the upper abdomen. RAD/Chest PA and Lateral IMPRESSION: Status post sternotomy. No visualized acute focal infiltrate or significant change since prior study. Electronically Signed: Gregoria Galvez MD at 0:25 EDT ,
[2022-10-27 23:38] LABS: Absolute Lymphocyte Count 2.53 X10^3/uL (0.83-4.51); Basophil# 0.08 X10^3/uL; Basophil% 0.8 % (0-1); Eosinophil# 0.54 X10^3/uL; Eosinophils% 5.5 % (0-5); Hematocrit 41.8 % (37-47); Hemoglobin 13.2 g/dL (12.0-15.0); Lymphocyte # 2.53 X10^3/ul (0.83-4.51); Lymphocyte % 25.6 % (19-41); Mean Corp Hgb Conc 31.6 g/dL (32-36); Mean Corpuscular Volume 85.5 fL (81-99); Mean Platelet Vol. 9.3 fl (6.2-12.0); Monocyte# 0.74 X10^3/uL; Monocyte% 7.5 % (0-10); NRBC Flagged by Analyzer 0 % (0-5); Neutrophil # 5.97 X10^3/uL (2.7-7.7); Neutrophil % 60.3 % (47-70); Platelet Count 303 K/mm3 (150-450); RBC Distribution Width CV 14.3 % (11.6-14.6); RBC Distribution Width SD 44.4 fl (35.1-43.9); Red Blood Count 4.89 M/mm3 (4.2-5.4); White Blood Count 9.9 K/mm3 (4.4-11.0)
[2022-10-28 00:03] LABS: Anion Gap 6 (5-15); BUN 8 mg/dL (7-18); BUN/Creat Ratio 13.4 RATIO (10-20); Calcium,Total 9.1 mg/dL (8.5-10.1); Chloride 105 mmol/L (98-107); EST Glomerular Filtration Rate 129 mL/min (>60); Est Glom Filt Rate - Afr Amer 157 mL/min (>60); Estimated Creatinine Clearance 139.38 ml/min; Glucose 92 mg/dL (74-106); Potassium 3.2 mmol/L (3.5-5.1); Sodium Level 138 mmol/L (136-145); Troponin-I HS 9 pg/mL (3.0-54.0)
[2022-10-28 00:04] VITALS: BP 117/52; PULSE 73; RESP 20; TEMP 35.8; O2SAT 99
--- NOTE | 2022-10-28 00:37 | EX.ED.DYSGE1 ---
HPI History of Present Illness Chief Complaint: Cold Sx Narrative Narrative: Patient is a 27-year-old female with history of valvular heart disease and 2 heart surgeries, one at age 10 and another at age 22. She is presenting with 2 days of URI symptoms with associated coughing, nasal congestion, runny nose but is now developed right-sided chest pain. States it is in her shoulder area radiates to her back and down her right arm. Is worse with movements. It feels better when she pushes on her shoulder from her back. She notes that her cough has been productive of mucus that is booth and green in color. She denies any fever. Her significant other had similar symptoms. Patient figured this was viral and plan on calling her primary care doctor tomorrow but when she developed this chest pain and with her heart history she decided come to the emergency room. She has not taken anything for pain including NSAIDs or any [id number] cough medicine because of her history of her heart medicine. Patient is on antidepressant medicine and does smoke cigarettes. No other complaints at this time. Denies any swelling of her legs. [facility] Medical History Aortic stenosis Asthma Chest pain Depression Morbid obesity QUINTON (obstructive sleep apnea) PCOS (polycystic ovarian syndrome) PTSD (post-traumatic stress disorder) Home Medications gabapentin 100 mg capsule 200 mg PO BID 03/29/22 [History Last Taken Unknown] albuterol sulfate 90 mcg/actuation aerosol inhaler 2 puff inhalation Q4H PRN 07/03/22 [History Last Taken Unknown] levomilnacipran 20 mg capsule,24 hr,extended release (Fetzima) 20 mg PO DAILY 07/03/22 [History Last Taken Unknown] albuterol sulfate 90 mcg/actuation aerosol inhaler (Proventil HFA) 1 inh inhalation Q6H PRN shortness of breath or wheezing #6.7 grams 10/28/22 [Rx Last Taken Unknown] guaifenesin 600 mg tablet, extended release 12 hr (Mucinex) 600 mg PO Q12H PRN congestion #20 tabs 10/28/22 [Rx Last Taken Unknown] Allergy/AdvReac Type Severity Reaction Status Date / Time doxycycline Allergy Intermediate rash Verified 10/27/22 22:55 Penicillins Allergy Hives Verified 10/27/22 22:55 Tetanus Vaccines and Toxoid Allergy Rash Verified 10/27/22 22:55 Family History Mother COPD (chronic obstructive pulmonary disease) Thyroid disorder Asthma QUINTON (obstructive sleep apnea) Father Diabetes Myocardial infarction Sister COPD (chronic obstructive pulmonary disease) Asthma Thyroid disorder QUINTON (obstructive sleep apnea) Brother Diabetes Grandmother COPD (chronic obstructive pulmonary disease) Hypertension Asthma CVA (cerebral vascular accident) Thyroid disorder QUINTON (obstructive sleep apnea) Grandfather Hypertension Heart disease Uncle Cancer Surgical History History of cholecystectomy 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) Social History Smoking Status: Current every day smoker tobacco type: cigarettes alcohol intake: never substance use type: marijuana caffeine: Yes (3-45 ounce cups of mountain dew and 1 gallon of tea daily) Type: carbonated beverages and tea ROS ROS ED Constitutional Constitutional ED: Denies chills or fever(s) Eyes Eyes: Denies change in vision ENT ENT ED: Reports ear pain right, rhinorrhea and other Details: Nasal congestion Cardiovascular Cardiovascular: Reports chest pain; Denies palpitations Respiratory/Chest Respiratory/Chest: Reports cough and dyspnea Gastrointestinal Gastrointestinal: Denies abdominal pain, nausea or vomiting Genitourinary Genitourinary ED: Denies dysuria or hematuria Musculoskeletal Musculoskeletal: Reports back pain and other Details: right shoulder pain ; Denies arthralgias Integumentary Denies rash Neurologic Neurologic: Denies weakness Psychiatric Psychiatric: Denies anxiety Hematologic/Lymphatic Hematologic/Lymphatic: Denies easy bleeding or easy bruising EXAM Physical Exam Const Vital Signs: 10/27/22 22:53 10/27/22 23:04 10/28/22 00:04 Temperature 96.5 F L 96.5 F L Temperature Source Temporal Temporal Pulse Rate 85 73 Respiratory Rate 22 H 20 H Respiratory Effort Short of Breath Respiratory Pattern Normal Blood Pressure 167/80 H 117/52 L Blood Pressure Mean 109 73 Pulse Ox 98 99 Oxygen Delivery Method Room Air 10/28/22 00:52 10/28/22 01:39 Temperature 96.5 F L Temperature Source Temporal Pulse Rate 82 88 Respiratory Rate 19 H 16 Respiratory Effort Respiratory Pattern Blood Pressure 104/55 L 111/51 L Blood Pressure Mean 71 Pulse Ox 99 97 Oxygen Delivery Method Room Air Positive well nourished and well developed General Appearance ED: well developed and NAD HEENT Reports TM's clear and moist mucous membranes Tympanic Membrane ED: Yes TM's clear Eyes PERRL and EOMs intact bilaterally Neck supple and no JVD Chest Wall inspection of chest normal and palpation of chest normal Resp normal respiratory effort and clear to auscultation bilaterally Auscultation: Negative for rhonchi or wheezes Cardio regular rate, regular rhythm and no murmurs GI normal to inspection, nondistended, normoactive bowel sounds and non-tender Extremity normal to inspection General Extremety ED: Negative for edema or tenderness General Extremity: Negative for edema Neuro oriented x3 Sensorium / Orientation: alert Motor Exam: Negative for general weakness Psych mental status grossly normal Skin no rashes or lesions noted and no wounds MDM MDM MDM Narrative Medical decision making narrative: Patient's evaluated for chest pain in the setting of recent URI symptoms. Patient appears nontoxic and in no acute distress. Vital signs upon arrival are significant for mild tachypnea with a respiratory rate of 22 and a blood pressure of 167/80. Without intervention patient's blood pressure improved to 104/55 and her respiratory rate also normalized slightly to 19. Patient peers nontoxic and in no acute distress. She is not hypoxic. Her physical exam and HPI is most consistent with a viral syndrome especially given that she has had sick contacts. Sounds like she more does not know what she should take because of her cardiac history and was afraid to take something that would be harmful to her. Given her history of cardiac surgery I did obtain EKG, baseline labs including a CBC, BMP and a high-sensitivity troponin. Two-view chest x-ray obtained interpreted by myself as well as radiology does not show any acute process. She does not have a leukocytosis. No signs of pneumonia on her chest x-ray. She is afebrile. Her BMP is remarkable only for mild hypokalemia with a potassium of 3.2. Patient is given dose of oral potassium replacement in the emergency room. Patient is given Toradol for her pain. I suspect her pain is more muscle skeletal and associated with her coughing. Is possible there could be a pleuritic component but I think this is less likely. Patient does continue to smoke and encouraged to stop using tobacco. She is given an albuterol inhaler and counseled that this could progress into bronchitis. At this time I do not think she requires antibiotics. Patient verbalizes agreement and understands this plan Lab Data Attestation: I reviewed the patient's lab results. Labs: Laboratory Results - last 24 hr 10/27/22 10/27/22 23:30 23:30 WBC 9.9 RBC 4.89 Hgb 13.2 Hct 41.8 MCV 85.5 MCH 27.0 MCHC 31.6 L RDW Std Deviation 44.4 H RDW Coeff of Carolyn 14.3 Plt Count 303 MPV 9.3 Immature Gran % (Auto) 0.300 Neut % (Auto) 60.3 Lymph % (Auto) 25.6 Power % (Auto) 7.5 Eos % (Auto) 5.5 H Baso % (Auto) 0.8 Absolute Neuts (auto) 6.0 Absolute Lymphs (auto) 2.53 Nucleated RBC % 0 Sodium 138 Potassium 3.2 L Chloride 105 Carbon Dioxide 27.0 Anion Gap 6 BUN 8 Creatinine 0.60 Estim Creat Clear Calc 139.38 Est GFR (MDRD) Af Amer 157 Est GFR (MDRD) Non-Af 129 BUN/Creatinine Ratio 13.4 Glucose 92 Calcium 9.1 Troponin I High Sens 9 Radiography Chest X-Ray - ED: 2 View, Read by ED Physician, Read by Radiologist and No Acute Disease Diagnostic Testing: Clinical Impression(s) from Imaging Studies Chest X-Ray 10/27/22 23:17 IMPRESSION: Status post sternotomy. No visualized acute focal infiltrate or significant change since prior study. Electronically Signed: Gregoria Galvez MD at 0:25 EDT , Rhythm Strip Rhythm Strip: Sinus Rhythm Rate: 73 Ectopy: None EKG Initial EKG: Attestation: I personally reviewed and interpreted this EKG as follows: Interpretation: Sinus Rhythm Comments: Normal sinus rhythm at a rate of 73 bpm Normal axis Left bundle branch block Normal ST segments Compared to prior EKG, no changes Prior EKG tracings: available for review Prior: Unchanged Discharge Plan Triage Chief Complaint: Cold Sx ED Provider: Karis Paul Dx/Rx/DC Orders Clinical Impression: Acute viral syndrome, URI (upper respiratory infection), Acute nonspecific chest pain with low risk of coronary artery disease, Acute hypokalemia Instructions: ED Chest Wall Pain, Costochondritis, ED Viral Syndrome (Adult) Prescriptions: New albuterol sulfate [Proventil HFA] 90 mcg/actuation HFA aerosol inhaler 1 inh inhalation Q6H PRN (Reason: shortness of breath or wheezing) Qty: 6.7 0RF guaifenesin [Mucinex] 600 mg tablet extended release 12hr 600 mg PO Q12H PRN (Reason: congestion) Qty: 20 0RF No Action gabapentin 100 mg capsule 200 mg PO BID Fetzima 20 mg capsule,extended release 24 hr 20 mg PO DAILY Label Comments: TAKE 1 CAPSULE BY MOUTH ONCE DAILY albuterol sulfate 90 mcg/actuation HFA aerosol inhaler 2 puff inhalation Q4H PRN Label Comments: Inhale 2 Puffs as instructed every 4 hours as needed. Stand Alone Forms: ED Work / School Excuse Primary Care Provider: Ken Barnes Referrals: Ken Barnes MD [Primary Care Provider] - Activity Restrictions/Additional Instructions: May take [id number] ibuprofen and/or Tylenol to help with your discomfort and aches and pains. Do not take decongestants (cold medicines that have the D at the end of them). Cold medicines from the brand Coricidin HBP are generally safe for any cardiac patients. Your potassium was mildly low today. Please try to increase your potassium in your diet. Disposition Disposition: Home, Self Care Discharge Date/Time: 10/28/22 01:39
[2022-10-28 00:52] VITALS: BP 104/55; PULSE 82; RESP 19; TEMP 35.8; O2SAT 99
[2022-10-28] MEDS: Ketorolac 15 MG/ML Vial IV (00:53)
[2022-10-28] MEDS: Potassium Chloride Oral Tablet 20 MEQ PO (00:53)
[2022-10-28] MEDS: guaiFENesin 600 MG Tablet PO (00:57)
[2022-10-28 01:39] VITALS: BP 111/51; PULSE 88; RESP 16; O2SAT 97
== END 2022-10-28 01:39 | disposition home or self-care (01) ==
PROVIDERS: Emergency Provider Emergency Medicine; PCP Family Medicine; Visit Provider Emergency Medicine
DX: J06.9 Acute upper respiratory infection, unspecified (principal); B34.9 Viral infection, unspecified; F17.210 Nicotine dependence, cigarettes, uncomplicated; E87.6 Hypokalemia; I25.10 Atherosclerotic heart disease of native coronary artery without angina pectoris; R07.9 Chest pain, unspecified; J45.909 Unspecified asthma, uncomplicated; Z79.899 Other long term (current) drug therapy; F32.A Depression, unspecified; Z90.49 Acquired absence of other specified parts of digestive tract
CPT/HCPCS: 71046; 80048; 84484; 85025; 87811; 93005; 96374; 99284; A4216

== ENCOUNTER 2023-04-15 08:26 | Emergency (ER) | payer MEDICAID, SELFPAY ==
[2023-04-15 08:27] VITALS: BP 131/67; PULSE 75; RESP 14; TEMP 36.8; O2SAT 98; BMI 46.7
--- NOTE | 2023-04-15 08:37 | EX.ED.VIS.EY ---
HPI History of Present Illness Chief Complaint: Eye Problem Informant: patient Onset/Context/Timing Location: Right Eye Onset: Yesterday Context: Gradual Onset Narrative Narrative: Patient presents with eye irritation and swelling. Patient states last evening she noted some discharge from her right eye and she had an achy sensation. This morning her eye was matted shut. She has had a runny nose lately. She does not normally wear glasses or contacts. She states her niece had pinkeye 2 weeks ago and used her pillows. PFSH PFS Medical History Aortic stenosis Asthma Chest pain Depression Morbid obesity QUINTON (obstructive sleep apnea) PCOS (polycystic ovarian syndrome) PTSD (post-traumatic stress disorder) Home Medications gabapentin 100 mg capsule 200 mg PO BID 03/29/22 [History Last Taken Unknown] albuterol sulfate 90 mcg/actuation aerosol inhaler 2 puff inhalation Q4H PRN 07/03/22 [History Last Taken Unknown] levomilnacipran 20 mg capsule,24 hr,extended release (Fetzima) 20 mg PO DAILY 07/03/22 [History Last Taken Unknown] albuterol sulfate 90 mcg/actuation aerosol inhaler (Proventil HFA) 1 inh inhalation Q6H PRN shortness of breath or wheezing #6.7 grams 10/28/22 [Rx Last Taken Unknown] guaifenesin 600 mg tablet, extended release 12 hr (Mucinex) 600 mg PO Q12H PRN congestion #20 tabs 10/28/22 [Rx Last Taken Unknown] Allergy/AdvReac Type Severity Reaction Status Date / Time doxycycline Allergy Intermediate rash Verified 04/15/23 08:27 Penicillins Allergy Hives Verified 04/15/23 08:27 Tetanus Vaccines and Toxoid Allergy Rash Verified 04/15/23 08:27 Family History Mother COPD (chronic obstructive pulmonary disease) Thyroid disorder Asthma QUINTON (obstructive sleep apnea) Father Diabetes Myocardial infarction Sister COPD (chronic obstructive pulmonary disease) Asthma Thyroid disorder QUINTON (obstructive sleep apnea) Brother Diabetes Grandmother COPD (chronic obstructive pulmonary disease) Hypertension Asthma CVA (cerebral vascular accident) Thyroid disorder QUINTON (obstructive sleep apnea) Grandfather Hypertension Heart disease Uncle Cancer Surgical History History of cholecystectomy 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) Social History Smoking Status: Current every day smoker tobacco type: cigarettes alcohol intake: never substance use type: marijuana caffeine: Yes (3-45 ounce cups of mountain dew and 1 gallon of tea daily) Type: carbonated beverages and tea ROS ROS ED Constitutional Constitutional ED: Denies chills or fever(s) Eyes Eyes: Reports discharge from eye(s); Denies change in vision ENT ENT ED: Reports discharge from eye(s) and rhinorrhea; Denies sore throat Cardiovascular Cardiovascular: Denies chest pain Respiratory/Chest Respiratory/Chest: Denies cough or dyspnea Musculoskeletal Musculoskeletal: Denies extremity pain Integumentary Denies Abrasions or rash Neurologic Neurologic: Denies headache(s) or weakness Psychiatric Psychiatric: Denies anxiety or depression Allergic/Immunologic Allergic/Immunologic ED: Denies lip swelling or urticaria EXAM Physical Exam Const Vital Signs: 04/15/23 08:27 Temperature 98.2 F Temperature Source Temporal Pulse Rate 75 Respiratory Rate 14 Blood Pressure 131/67 H Blood Pressure Mean 88 Pulse Ox 98 Oxygen Delivery Method Room Air Positive well nourished and well developed General Appearance ED: well developed Eyes Eyes Narrative: Mild right periorbital edema. No significant ecchymosis. Conjunctival injection on the right. Extraocular movements fully intact with no pain. Pupils equal and reactive. Neck no lymphadenopathy Resp normal respiratory effort and clear to auscultation bilaterally Cardio regular rate and regular rhythm Extremity normal to inspection Neuro oriented x3 and moves all extremities MDM MDM MDM Narrative Medical decision making narrative: Patient symptoms are consistent with conjunctivitis. We discussed that this could be secondary to viral, bacterial, or allergic. She will be covered with antibiotic eyedrops and advised to use these until her symptoms are resolved for a full 24 hours. She will be referred to ophthalmology if not improving. Return instructions given. Discharge Plan Triage Chief Complaint: Eye Problem ED Provider: Ellen Olmos Dx/Rx/DC Orders Clinical Impression: Conjunctivitis Instructions: ED Conjunctivitis, Nonspecific Prescriptions: No Action gabapentin 100 mg capsule 200 mg PO BID Fetzima 20 mg capsule,extended release 24 hr 20 mg PO DAILY Patient Comments: TAKE 1 CAPSULE BY MOUTH ONCE DAILY albuterol sulfate 90 mcg/actuation HFA aerosol inhaler 2 puff inhalation Q4H PRN Patient Comments: Inhale 2 Puffs as instructed every 4 hours as needed. albuterol sulfate [Proventil HFA] 90 mcg/actuation HFA aerosol inhaler 1 inh inhalation Q6H PRN (Reason: shortness of breath or wheezing) Qty: 6.7 0RF guaifenesin [Mucinex] 600 mg tablet extended release 12hr 600 mg PO Q12H PRN (Reason: congestion) Qty: 20 0RF Primary Care Provider: Ken Barnes Referrals: Arthur Yap MD [Med Staff - Active Staff] - As Needed Ken Barnes MD [Primary Care Provider] - Activity Restrictions/Additional Instructions: As discussed, please use 2 drops of the antibiotic solution to your affected eye every 4 hours while awake. Please use the drops after your symptoms have resolved for another 24 hours. Disposition Disposition: Home, Self Care
[2023-04-15] MEDS: Gentamicin Sulfate 1 OPTH.BTL 2 DRP RIGHT EYE (08:51)
[2023-04-15 08:57] VITALS: BP 136/72; PULSE 79; RESP 16; TEMP 36.7; O2SAT 99
== END 2023-04-15 09:01 | disposition home or self-care (01) ==
LOC: ED 08:50
PROVIDERS: Emergency Provider Emergency Medicine; PCP Family Medicine; Visit Provider Emergency Medicine
DX: H10.9 Unspecified conjunctivitis (principal); F12.90 Cannabis use, unspecified, uncomplicated; G47.33 Obstructive sleep apnea (adult) (pediatric)
CPT/HCPCS: 99283

== ENCOUNTER 2024-03-06 20:00 | Emergency (ER) | payer MEDICAID, SELFPAY ==
[2024-03-06 20:00] VITALS: BP 156/83; PULSE 90; RESP 16; TEMP 37.1; O2SAT 98; BMI 41.6
--- NOTE | 2024-03-06 20:39 | EX.ED.DYSGE1 ---
HPI History of Present Illness Chief Complaint: Abscess Narrative Narrative: Presents concern abscess left breast noted 3 days ago. Yesterday opened up and drained. Today a new bump that she popped. No fevers or chills. She has had abscesses in her groin in the past. She is not a diabetic. No fevers or chills. History of congenital aortic stenosis with surgery. Allergy to penicillin. Prior similar symptoms: Yes PFSH PFSH Medical History PTSD (post-traumatic stress disorder) Aortic stenosis PCOS (polycystic ovarian syndrome) QUINTON (obstructive sleep apnea) Morbid obesity Depression Asthma Chest pain Home Medications ?Medication ?Instructions ?Recorded ?Last Taken ?Type NK 04/15/23 Unknown History sulfamethoxazole 800 1 tab PO BID #10 tabs 03/06/24 Unknown Rx mg-trimethoprim 160 mg tablet (Bactrim DS) Allergy/AdvReac Type Severity Reaction Status Date / Time doxycycline Allergy Intermediate rash Verified 03/06/24 20:01 Penicillins Allergy Hives Verified 03/06/24 20:01 Tetanus Vaccines and Toxoid Allergy Rash Verified 03/06/24 20:01 Family History Mother COPD (chronic obstructive pulmonary disease) Thyroid disorder Asthma QUINTON (obstructive sleep apnea) Father Diabetes Myocardial infarction Sister COPD (chronic obstructive pulmonary disease) Asthma Thyroid disorder QUINTON (obstructive sleep apnea) Brother Diabetes Grandmother COPD (chronic obstructive pulmonary disease) Hypertension Asthma CVA (cerebral vascular accident) Thyroid disorder QUINTON (obstructive sleep apnea) Grandfather Hypertension Heart disease Uncle Cancer Surgical History History of cholecystectomy Subaortic membrane (~05/2017) History of repair of patent ductus arteriosus Social History Smoking Status: Current every day smoker tobacco type: cigarettes alcohol intake: never substance use type: marijuana caffeine: Yes (3-45 ounce cups of mountain dew and 1 gallon of tea daily) Type: carbonated beverages and tea ROS ROS ED Constitutional Constitutional ED: Denies chills, fever(s) or sweats Eyes Eyes: Denies change in vision ENT ENT ED: Denies dysphagia or sore throat Cardiovascular Cardiovascular: Denies chest pain, leg edema, palpitations or racing heartbeat Respiratory/Chest Respiratory/Chest: Denies cough, dyspnea or dyspnea on exertion Gastrointestinal Gastrointestinal: Denies abdominal pain, diarrhea, nausea or vomiting Genitourinary Genitourinary ED: Denies dysuria, hematuria or urinary frequency Musculoskeletal Musculoskeletal: Denies back pain, extremity pain or neck pain Integumentary Reports abscess; Denies rash or wounds Neurologic Neurologic: Denies headache(s), paresthesias or weakness EXAM Physical Exam Const Vital Signs: 03/06/24 20:00 Temperature 98.7 F Temperature Source Oral Pulse Rate 90 Respiratory Rate 16 Blood Pressure 156/83 H Blood Pressure Mean 107 Pulse Ox 98 Oxygen Delivery Method Room Air Positive well nourished and well developed General Appearance ED: well developed and NAD HEENT Reports moist mucous membranes normocephalic and atraumatic Eyes EOMs intact bilaterally and conjunctivae normal General Eye ED: Yes normal appearance of both eyes Neck no lymphadenopathy and supple General: Negative for tenderness Chest Wall 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 Left breast left upper outer region nickel size area lesion small ulceration mild erythema around the area. No fluctuance. No active drainage. No induration. Chest: Negative for tenderness Resp normal respiratory effort and normal air movement Effort and Inspection: symmetric chest movement; Negative for respiratory distress Cardio regular rate, regular rhythm and no murmurs Peripheral Pulses: pulses 2+ throughout GI normal to inspection, nondistended, normoactive bowel sounds and non-tender Palpation: Negative for guarding or rebound tenderness present Back/Spine no CVA tenderness and no thoracic nor lumbar tenderness Extremity normal to inspection General Extremety ED: Negative for edema or tenderness General Extremity: Negative for edema Neuro oriented x3 and no sensory deficits noted Sensorium / Orientation: awake and alert Skin Skin Narrative: See above MDM MDM MDM Narrative Medical decision making narrative: Interventions / MDM: Differential diagnosis: Abscess with spontaneous drainage, cellulitis Diagnosis considered but do not suspect: N/A My EKG interpretation: N/A Imaging independently reviewed and interpreted by myself: N/A External documents reviewed: N/A Test considered but not ordered:N/A ED course: Patient currently no fluctuance or concern for abscess however the history concerns is that has spontaneously drained with her manipulation. Slight cellulitic region around this area. With reported exudative drainage will place her on Bactrim for 5 days. Meds to bed provided. Outpatient follow-up with her doctor. Return precautions. All questions were answered. Re-evaluation: stable Disposition discussed with patient/family/significant other: Case discussed with consulting clinician: N/A This note was generated with [employer] dictation software. It may contain incorrect words, spelling, and punctuation that were not noted in checking the note before signing. Discharge Plan Triage Chief Complaint: Abscess ED Provider: Kyrie Dejesus Dx/Rx/DC Orders Clinical Impression: Abscess of breast, Cellulitis of left breast Instructions: Cellulitis Dc, ED Abscess Antibiotic Treatment Only Prescriptions: New sulfamethoxazole-trimethoprim [Bactrim DS] 800-160 mg tablet 1 tab PO BID Qty: 10 0RF No Action NK Primary Care Provider: Ken Barnes Referrals: Ken Barnes MD [Primary Care Provider] - Activity Restrictions/Additional Instructions: Abscess that has been draining. Take antibiotic as prescribed. Follow-up with your doctor. Print Language: Citizen Of [place] Disposition Disposition: Home, Self Care Discharge Date/Time: 03/06/24 20:49
== END 2024-03-06 20:49 | disposition home or self-care (01) ==
LOC: ED 20:49
PROVIDERS: Emergency Provider Emergency Medicine; PCP Family Medicine; Visit Provider Emergency Medicine
DX: N61.1 Abscess of the breast and nipple (principal); G47.33 Obstructive sleep apnea (adult) (pediatric); F17.210 Nicotine dependence, cigarettes, uncomplicated
CPT/HCPCS: 99282

== ENCOUNTER 2024-03-31 06:55 | Emergency (ER) | payer MEDICAID, SELFPAY ==
[2024-03-31 06:56] VITALS: BP 132/77; PULSE 85; RESP 18; TEMP 36.8; O2SAT 96; BMI 43.4
[2024-03-31 06:59] VITALS: O2SAT 98
[2024-03-31] MEDS: predniSONE 20 MG Tablet 60 MG PO (07:17)
[2024-03-31 07:32] VITALS: PULSE 76; RESP 18
[2024-03-31] MEDS: Ipratropium/Albuterol Sulfate 3 ML AMPUL.NEB INHALATION (07:32)
[2024-03-31 07:38] VITALS: O2SAT 97
== END 2024-03-31 09:10 | disposition home or self-care (01) ==
PROVIDERS: Emergency Provider Emergency Medicine; PCP Family Medicine; Visit Provider Emergency Medicine
DX: J45.901 Unspecified asthma with (acute) exacerbation (principal); J18.9 Pneumonia, unspecified organism
CPT/HCPCS: 71046; 87631; 87651; 93005; 94640; 99283

== ENCOUNTER 2024-06-15 08:42 | Emergency (ER) | payer MEDICAID, SELFPAY ==
[2024-06-15 08:42] VITALS: BP 130/72; PULSE 97; RESP 14; TEMP 36.1; TEMP 37; O2SAT 96; BMI 43.5
--- NOTE | 2024-06-15 08:59 | EDS_ITS ---
HPI History of Present Illness Chief Complaint: Cold Sx Detail of Chief Complaint: Cold symptoms Informant: patient Narrative Narrative: Patient presents to the emergency department with cold symptoms. Patient states that she started getting sick 2 days ago. She complains of bodyaches as well as a cough. Cough at times clear and at times productive of some brown sputum. She has had fever up to 100.4 at home. She tells me her entire household is sick with similar illness. She has had some watery stools. This morning she tried to drink some Gatorade and did vomit x 1. She denies abdominal pain. [facility] Medical History PTSD (post-traumatic stress disorder) Aortic stenosis PCOS (polycystic ovarian syndrome) QUINTON (obstructive sleep apnea) Morbid obesity Depression Asthma Chest pain Home Medications ?Medication ?Instructions ?Recorded ?Last Taken ?Type sulfamethoxazole 800 1 tab PO BID #10 tabs 03/06/24 Unknown Rx mg-trimethoprim 160 mg tablet (Bactrim DS) albuterol sulfate 90 mcg/actuation 2 puff inhalation Q6H PRN 03/31/24 Unknown Rx aerosol inhaler shortness of breath or wheezing #8.5 grams levofloxacin 750 mg tablet 750 mg PO DAILY 7 days #7 tabs 03/31/24 Unknown Rx prednisone 50 mg tablet 50 mg PO DAILY 5 days #5 tabs 03/31/24 Unknown Rx ibuprofen 800 mg tablet 800 mg PO Q8H PRN pain #20 tabs 06/15/24 Unknown Rx ondansetron 4 mg disintegrating 4 mg PO Q8H PRN PRN Nausea #10 tabs 06/15/24 Unknown Rx tablet Allergy/AdvReac Type Severity Reaction Status Date / Time doxycycline Allergy Intermediate rash Verified 06/15/24 08:43 Penicillins Allergy Hives Verified 06/15/24 08:43 Tetanus Vaccines and Toxoid Allergy Rash Verified 06/15/24 08:43 Family History Mother COPD (chronic obstructive pulmonary disease) Thyroid disorder Asthma QUINTON (obstructive sleep apnea) Father Diabetes Myocardial infarction Sister COPD (chronic obstructive pulmonary disease) Asthma Thyroid disorder QUINTON (obstructive sleep apnea) Brother Diabetes Grandmother COPD (chronic obstructive pulmonary disease) Hypertension Asthma CVA (cerebral vascular accident) Thyroid disorder UQINTON (obstructive sleep apnea) Grandfather Hypertension Heart disease Uncle Cancer Surgical History History of cholecystectomy Subaortic membrane (~05/2017) History of repair of patent ductus arteriosus Social History Smoking Status: Current every day smoker tobacco type: cigarettes alcohol intake: never substance use type: marijuana caffeine: Yes (3-45 ounce cups of mountain dew and 1 gallon of tea daily) Type: carbonated beverages and tea ROS ROS ED Review of Systems ROS Unobtainable: other Constitutional Constitutional ED: Reports fever(s) and lethargy; Denies chills, sweats or weight loss Eyes Eyes: Denies blurry vision, change in vision or diplopia ENT ENT ED: Reports ear pain and sore throat; Denies rhinorrhea Cardiovascular Cardiovascular: Denies chest pain, orthopnea or racing heartbeat Respiratory/Chest Respiratory/Chest: Reports cough; Denies dyspnea, dyspnea on exertion, orthopnea or sputum Gastrointestinal Gastrointestinal: Reports diarrhea, nausea and vomiting; Denies abdominal pain Genitourinary Genitourinary ED: Denies dysuria, hematuria or urinary frequency Musculoskeletal Musculoskeletal: Denies arthralgias, back pain, myalgias or neck pain Integumentary Denies abscess, Abrasions or rash Neurologic Neurologic: Denies headache(s) or weakness Psychiatric Psychiatric: Denies anxiety, depression or suicidal thoughts Endocrine Endocrinology: Denies polydipsia, polyphagia or polyuria Hematologic/Lymphatic Hematologic/Lymphatic: Denies easy bleeding, easy bruising or lymphadenopathy Allergic/Immunologic Allergic/Immunologic ED: Denies mouth swelling, tongue swelling or urticaria EXAM Physical Exam Const Vital Signs: 06/15/24 08:42 06/15/24 08:42 Temperature 98.6 F 97 F L Temperature Source Oral Temporal Pulse Rate 97 Respiratory Rate 14 Blood Pressure 130/72 H Blood Pressure Mean 91 Pulse Ox 96 Oxygen Delivery Method Room Air Positive well nourished and well developed General Appearance ED: well developed and NAD HEENT Reports TM's clear and moist mucous membranes normocephalic and atraumatic; Negative for trauma or tenderness Tympanic Membrane ED: Yes TM's clear Eyes PERRL and EOMs intact bilaterally General Eye ED: Negative for pale conjunctiva or scleral icterus Neck no lymphadenopathy, supple and no JVD General: Negative for tenderness Chest Wall inspection of chest normal and palpation of chest normal Chest: Negative for tenderness Resp normal respiratory effort and clear to auscultation bilaterally Effort and Inspection: Negative for respiratory distress or pain with movement Auscultation: Negative for rhonchi, wheezes or diminished lung sounds Cardio regular rate, regular rhythm, S1 normal heart sound, S2 normal heart sound and no murmurs Peripheral Pulses: pulses 2+ throughout GI normal to inspection, nondistended, normoactive bowel sounds, soft to palpation, non-tender, non-distended and no masses Back/Spine no CVA tenderness and no thoracic nor lumbar tenderness Extremity normal to inspection General Extremety ED: Negative for edema General Extremity: Negative for edema Neuro oriented x3, CN's II-XII intact bilaterally, no sensory deficits noted and gait normal Sensorium / Orientation: awake, alert, oriented to person, oriented to place and oriented to time Motor Exam: strength 5/5 throughout and strength abnormal Psych mental status grossly normal Skin no rashes or lesions noted and no wounds MDM MDM MDM Narrative Medical decision making narrative: Patient presents to the emergency department with symptoms consistent with a viral syndrome. She clinically looks well. No signs of dehydration. I do not feel she needs any imaging as she has essentially normal vital signs and no abno rmal breath sounds on exam. Multiple sick contacts in the home. Discussed obtaining COVID flu and RSV testing however this will likely not change treatment plan. Will give her a shot of Toradol and 4 mg of Zofran p.o. Patient and her significant other decided they did not want to do nasal swabs for COVID flu and RSV. Will write a prescription for ibuprofen as well as Zofran. Advised to push fluids. Advised to follow-up with primary care physician in 5 to 7 days or to return if increasing shortness of breath or condition should worsen anyway. Discharge Plan Triage Chief Complaint: Cold Sx ED Provider: Khai Woods Dx/Rx/DC Orders Clinical Impression: Acute viral syndrome Instructions: ED Viral Syndrome (Adult) Prescriptions: New ondansetron 4 mg tablet,disintegrating 4 mg PO Q8H PRN PRN (Reason: Nausea) Qty: 10 0RF ibuprofen 800 mg tablet 800 mg PO Q8H PRN (Reason: pain) Qty: 20 0RF No Action sulfamethoxazole-trimethoprim [Bactrim DS] 800-160 mg tablet 1 tab PO BID Qty: 10 0RF levofloxacin 750 mg tablet 750 mg PO DAILY 7 Days Qty: 7 0RF prednisone 50 mg tablet 50 mg PO DAILY 5 Days Qty: 5 0RF albuterol sulfate 90 mcg/actuation HFA aerosol inhaler 2 puff inhalation Q6H PRN (Reason: shortness of breath or wheezing) Qty: 8.5 0RF Primary Care Provider: Ken Barnes Referrals: Ken Barnes MD [Primary Care Provider] - 5-7 Days Print Language: Romanian Disposition Disposition: Home, Self Care
[2024-06-15] MEDS: Ondansetron ODT 4 MG Tablet PO (09:15)
[2024-06-15] MEDS: Ketorolac 60 MG/2 ML Vial IM (09:15)
[2024-06-15 09:29] VITALS: BP 104/69; PULSE 88; RESP 16; TEMP 36.9; O2SAT 100
== END 2024-06-15 09:30 | disposition home or self-care (01) ==
LOC: ED 09:06
PROVIDERS: Emergency Provider Emergency Medicine; PCP Family Medicine; Visit Provider Emergency Medicine
DX: B34.9 Viral infection, unspecified (principal); G47.33 Obstructive sleep apnea (adult) (pediatric); F17.210 Nicotine dependence, cigarettes, uncomplicated
CPT/HCPCS: 96372; 99282

== ENCOUNTER 2024-09-08 00:16 | Emergency (ER) | payer MEDICAID, SELFPAY ==
[2024-09-08 00:17] VITALS: BP 137/66; PULSE 76; RESP 18; TEMP 36.6; O2SAT 98; BMI 47.6
--- NOTE | 2024-09-08 01:20 | EX.ED.DYSGE1 ---
HPI History of Present Illness Chief Complaint: Other, Pain/Inj Informant: patient and spouse/S.O. Narrative Narrative: Patient is a 29-year-old female with past medical history of PCOS asthma and depression. She states 4 days ago she awoke after sleeping and noticed pain along the right side of her neck that was worse with motion. She states she has been taking [id number] Tylenol and Motrin as well as icing and heating the neck but has had persistent pain and spasm making it difficult to move her neck. She states she feels like symptoms are worsening and therefore comes in for evaluation [facility] Medical History PTSD (post-traumatic stress disorder) Aortic stenosis PCOS (polycystic ovarian syndrome) QUINTON (obstructive sleep apnea) Morbid obesity Depression Asthma Chest pain Home Medications ?Medication ?Instructions ?Recorded ?Last Taken ?Type sulfamethoxazole 800 1 tab PO BID #10 tabs 03/06/24 Unknown Rx mg-trimethoprim 160 mg tablet (Bactrim DS) albuterol sulfate 90 mcg/actuation 2 puff inhalation Q6H PRN 03/31/24 Unknown Rx aerosol inhaler shortness of breath or wheezing #8.5 grams levofloxacin 750 mg tablet 750 mg PO DAILY 7 days #7 tabs 03/31/24 Unknown Rx prednisone 50 mg tablet 50 mg PO DAILY 5 days #5 tabs 03/31/24 Unknown Rx ibuprofen 800 mg tablet 800 mg PO Q8H PRN pain #20 tabs 06/15/24 Unknown Rx ondansetron 4 mg disintegrating 4 mg PO Q8H PRN PRN Nausea #10 tabs 06/15/24 Unknown Rx tablet methocarbamol 500 mg tablet 1,000 mg (2 x 500 mg) PO 4X/DAY 09/08/24 Unknown Rx PRN Muscle pain/spasm #56 tabs oxycodone-acetaminophen 5 mg-325 1 tab PO Q6H PRN pain 3 days #12 09/08/24 Unknown Rx mg tablet (Percocet) tabs Allergy/AdvReac Type Severity Reaction Status Date / Time doxycycline Allergy Intermediate rash Verified 09/08/24 00:17 Penicillins Allergy Hives Verified 09/08/24 00:17 Tetanus Vaccines and Toxoid Allergy Rash Verified 09/08/24 00:17 Family History Mother COPD (chronic obstructive pulmonary disease) Thyroid disorder Asthma QUINTON (obstructive sleep apnea) Father Diabetes Myocardial infarction Sister COPD (chronic obstructive pulmonary disease) Asthma Thyroid disorder QUINTON (obstructive sleep apnea) Brother Diabetes Grandmother COPD (chronic obstructive pulmonary disease) Hypertension Asthma CVA (cerebral vascular accident) Thyroid disorder QUINTON (obstructive sleep apnea) Grandfather Hypertension Heart disease Uncle Cancer Surgical History History of cholecystectomy Subaortic membrane (~05/2017) History of repair of patent ductus arteriosus Social History Smoking Status: Current every day smoker tobacco type: cigarettes alcohol intake: never substance use type: marijuana caffeine: Yes (3-45 ounce cups of mountain dew and 1 gallon of tea daily) Type: carbonated beverages and tea ROS ROS ED Constitutional Constitutional ED: Denies chills or fever(s) Eyes Eyes: Denies blurry vision or change in vision ENT ENT ED: Denies sore throat Cardiovascular Cardiovascular: Denies chest pain Respiratory/Chest Respiratory/Chest: Denies cough or dyspnea Gastrointestinal Gastrointestinal: Denies abdominal pain, diarrhea, nausea or vomiting Musculoskeletal Musculoskeletal: Reports neck pain Integumentary Denies Abrasions or rash Neurologic Neurologic: Denies headache(s) or paresthesias Hematologic/Lymphatic Hematologic/Lymphatic: Denies easy bleeding or easy bruising Allergic/Immunologic Allergic/Immunologic ED: Denies mouth swelling or tongue swelling EXAM Physical Exam Const Vital Signs: 09/08/24 00:17 09/08/24 00:21 Temperature 97.9 F Temperature Source Temporal Pulse Rate 76 Respiratory Rate 18 Respiratory Effort Normal Respiratory Pattern Normal Blood Pressure 137/66 H Blood Pressure Mean 89 Pulse Ox 98 Oxygen Delivery Method Room Air Positive well nourished, well developed and obese General Appearance ED: well developed; Negative for pallor Nutritional Appearance: obese HEENT Reports moist mucous membranes HEENT Narrative: No tongue or lip swelling no oral lesions no airway edema or compromise No signs of infection noted in the posterior pharynx Eyes PERRL and EOMs intact bilaterally General Eye ED: Negative for scleral icterus Neck Neck Narrative: No bony deformity or step-off of the cervical spine; no midline tenderness to palpation Patient has right-sided paracervical muscle tension in this basilar mainly along the SCM muscle belly that is worse with sidebending and rotation No nuchal rigidity or meningeal signs No overlying soft tissue changes to suggest trauma or infection Resp normal respiratory effort and clear to auscultation bilaterally Cardio regular rate and regular rhythm Rate: other Other Details: Heart is regular rate and rhythm Radial and carotid pulses are equal and symmetric Back/Spine Back/Spine Narrative: No bony deformity or step-off of the thoracic or lumbar spine; no midline tenderness to palpation Extremity normal to inspection Neuro oriented x3, CN's II-XII intact bilaterally and no sensory deficits noted Sensorium / Orientation: alert Psych mental status grossly normal Skin no rashes or lesions noted and no wounds Skin Narrative: No overlying soft tissue changes to suggest trauma or infection General Skin Exam: Negative for jaundice or pallor MDM MDM MDM Narrative Medical decision making narrative: Patient arrived to the ER with stable vitals. She reported pain began after waking from sleep and denied any trauma or sick symptoms. Differential diagnosis is for cervical spasm/strain versus lymphadenopathy versus posterior pharynx infection such as strep pharyngitis versus peritonsillar abscess or retropharyngeal abscess versus cellulitis. The patient does not have overlying redness or warmth or swelling going against cellulitis or abscess formation. There is no signs of posterior pharynx infection going against the retropharyngeal or peritonsillar abscess. The symptoms are unilateral and over the paraspinal muscle belly indicating this is cervical strain and spasm and without midline tenderness I have low concern for a compression fracture or spinal injury. Therefore at this time I do not feel there is need for further workup and patient will be treated with symptomatic medications and is otherwise safe for discharge History & Record Review Discussion w/independent historian: Patient and Significant other Discharge Plan Triage Chief Complaint: Other, Pain/Inj ED Provider: Ji Bermudez Dx/Rx/DC Orders Clinical Impression: Cervical paraspinous muscle spasm, Asthma, Depression, Morbid obesity, PCOS (polycystic ovarian syndrome) Instructions: ED Neck Spasm, No Trauma Prescriptions: New oxycodone-acetaminophen [Percocet] 5-325 mg tablet 1 tab PO Q6H PRN (Reason: pain) 3 Days Qty: 12 0RF methocarbamol 500 mg tablet 1,000 mg PO 4X/DAY PRN (Reason: Muscle pain/spasm) Qty: 56 0RF No Action sulfamethoxazole-trimethoprim [Bactrim DS] 800-160 mg tablet 1 tab PO BID Qty: 10 0RF levofloxacin 750 mg tablet 750 mg PO DAILY 7 Days Qty: 7 0RF prednisone 50 mg tablet 50 mg PO DAILY 5 Days Qty: 5 0RF albuterol sulfate 90 mcg/actuation HFA aerosol inhaler 2 puff inhalation Q6H PRN (Reason: shortness of breath or wheezing) Qty: 8.5 0RF ondansetron 4 mg tablet,disintegrating 4 mg PO Q8H PRN PRN (Reason: Nausea) Qty: 10 0RF ibuprofen 800 mg tablet 800 mg PO Q8H PRN (Reason: pain) Qty: 20 0RF Primary Care Provider: Ken Barnes Referrals: Ken Barnes MD [Primary Care Provider] - Activity Restrictions/Additional Instructions: Your history and exam is consistent with an acute spasm of your sternocleidomastoid muscle. Continue to heat and stretch the area to reduce pain and speed healing. Add the prescribed medication as directed for improved symptom control. Return to the ER should you have any further concerns Print Language: Portuguese Disposition Disposition: Home, Self Care Discharge Date/Time: 09/08/24 01:30
[2024-09-08] MEDS: diazePAM 5 MG Tablet PO (01:29)
[2024-09-08] MEDS: oxyCODONE 5 MG Tablet PO (01:29)
== END 2024-09-08 01:30 | disposition home or self-care (01) ==
PROVIDERS: Emergency Provider Emergency Medicine; PCP Family Medicine; Visit Provider Emergency Medicine
DX: M62.830 Muscle spasm of back (principal); E66.01 Morbid (severe) obesity due to excess calories; J45.909 Unspecified asthma, uncomplicated; E28.2 Polycystic ovarian syndrome; F32.A Depression, unspecified; G47.33 Obstructive sleep apnea (adult) (pediatric); F17.210 Nicotine dependence, cigarettes, uncomplicated
CPT/HCPCS: 99283

== ENCOUNTER 2024-10-05 12:38 | Emergency (ER) | payer SELFPAY ==
[2024-10-05 12:39] VITALS: BP 135/76; PULSE 79; RESP 18; TEMP 36.3; O2SAT 99; BMI 45.7
--- NOTE | 2024-10-05 13:44 | EX.ED.DYSGE1 ---
HPI History of Present Illness Chief Complaint: Chest Other Informant: patient Onset/Context/Timing Onset: Yesterday Context: Gradual Onset Timing: Continuous Quality: Sharp, pressure Location: Substernal and lower chest Worsened by: Movement, deep breathing Relieved by: Nothing Narrative Narrative: Patient presents with chest pain that began yesterday. Patient states she was exposed to some chemicals while cleaning. Patient states that there was an ammonia smell. Patient states that she was able to leave where she was cleaning out. Patient states that the pain has been persistent since yesterday evening. Patient describes it as a sharp pain over the substernal area and pressure around her lower chest. Patient states it is worse with movement and deep breathing. Patient states nothing makes it better. Patient admits to a mild cough but denies any sputum production. Patient denies any fevers or chills. Patient denies any nausea or vomiting. [facility] Medical History PTSD (post-traumatic stress disorder) Aortic stenosis PCOS (polycystic ovarian syndrome) QUINTON (obstructive sleep apnea) Morbid obesity Depression Asthma Chest pain Home Medications ?Medication ?Instructions ?Recorded ?Last Taken ?Type sulfamethoxazole 800 1 tab PO BID #10 tabs 03/06/24 Unknown Rx mg-trimethoprim 160 mg tablet (Bactrim DS) albuterol sulfate 90 mcg/actuation 2 puff inhalation Q6H PRN 03/31/24 Unknown Rx aerosol inhaler shortness of breath or wheezing #8.5 grams levofloxacin 750 mg tablet 750 mg PO DAILY 7 days #7 tabs 03/31/24 Unknown Rx prednisone 50 mg tablet 50 mg PO DAILY 5 days #5 tabs 03/31/24 Unknown Rx ibuprofen 800 mg tablet 800 mg PO Q8H PRN pain #20 tabs 06/15/24 Unknown Rx ondansetron 4 mg disintegrating 4 mg PO Q8H PRN PRN Nausea #10 tabs 06/15/24 Unknown Rx tablet methocarbamol 500 mg tablet 1,000 mg (2 x 500 mg) PO 4X/DAY 09/08/24 Unknown Rx PRN Muscle pain/spasm #56 tabs oxycodone-acetaminophen 5 mg-325 1 tab PO Q6H PRN pain 3 days #12 09/08/24 Unknown Rx mg tablet (Percocet) tabs Allergy/AdvReac Type Severity Reaction Status Date / Time doxycycline Allergy Intermediate rash Verified 10/05/24 12:39 Penicillins Allergy Hives Verified 10/05/24 12:39 Tetanus Vaccines and Toxoid Allergy Rash Verified 10/05/24 12:39 Family History Mother COPD (chronic obstructive pulmonary disease) Thyroid disorder Asthma QUINTON (obstructive sleep apnea) Father Diabetes Myocardial infarction Sister COPD (chronic obstructive pulmonary disease) Asthma Thyroid disorder QUINTON (obstructive sleep apnea) Brother Diabetes Grandmother COPD (chronic obstructive pulmonary disease) Hypertension Asthma CVA (cerebral vascular accident) Thyroid disorder QUINTON (obstructive sleep apnea) Grandfather Hypertension Heart disease Uncle Cancer Surgical History History of cholecystectomy Subaortic membrane (~05/2017) History of repair of patent ductus arteriosus Social History Smoking Status: Current every day smoker tobacco type: cigarettes alcohol intake: never substance use type: marijuana caffeine: Yes (3-45 ounce cups of mountain dew and 1 gallon of tea daily) Type: carbonated beverages and tea ROS ROS ED Constitutional Constitutional ED: Denies chills or fever(s) Eyes Eyes: Denies blurry vision or change in vision ENT ENT ED: Reports sore throat; Denies rhinorrhea Cardiovascular Cardiovascular: Reports chest pain; Denies palpitations Respiratory/Chest Respiratory/Chest: Reports cough; Denies dyspnea Gastrointestinal Gastrointestinal: Denies nausea or vomiting Genitourinary Genitourinary ED: Denies dysuria or hematuria Musculoskeletal Musculoskeletal: Reports back pain; Denies neck pain Integumentary Denies abscess or rash Neurologic Neurologic: Reports headache(s); Denies weakness Allergic/Immunologic Allergic/Immunologic ED: Denies mouth swelling or urticaria EXAM Physical Exam Const Vital Signs: 10/05/24 12:39 10/05/24 13:05 10/05/24 14:15 Temperature 97.4 F L Temperature Source Temporal Pulse Rate 79 79 Respiratory Rate 18 16 Respiratory Pattern Normal Blood Pressure 135/76 H Blood Pressure Mean 95 Pulse Ox 99 Oxygen Delivery Method Room Air 10/05/24 14:58 Temperature Temperature Source Pulse Rate 77 Respiratory Rate 27 H Respiratory Pattern Blood Pressure Blood Pressure Mean Pulse Ox 98 Oxygen Delivery Method Positive well nourished and well developed General Appearance ED: well developed and NAD HEENT Reports moist mucous membranes Neck supple and no JVD Resp normal respiratory effort Auscultation: wheezes scattered wheezes Cardio regular rhythm Rate: bradycardia GI non-tender and non-distended Palpation: soft Extremity normal to inspection Neuro oriented x3, CN's II-XII intact bilaterally and no sensory deficits noted Sensorium / Orientation: alert Motor Exam: strength 5/5 throughout MDM MDM MDM Narrative Medical decision making narrative: Differential diagnosis includes pneumonia, bronchitis, reactive airway disease, cardiac dysrhythmia, cardiac ischemia, electrolyte abnormality, and anxiety. EKG will be obtained to assess for cardiac dysrhythmia and cardiac ischemia. Chest x-ray will be obtained to assess for pneumonia and bronchitis. CBC will be obtained to assess for leukocytosis and anemia. Basic metabolic profile will be obtained to assess for electrolyte abnormality and renal function. History & Record Review Additional record(s) reviewed:: Prior ED visit and Prior labs Lab Data Attestation: I reviewed the patient's lab results. Lab results narrative: CBC was reviewed and was within normal limits. Basic metabolic profile was reviewed and was within normal limits. Labs: Laboratory Results - last 24 hr 10/05/24 14:21 WBC 8.7 RBC 5.22 Hgb 13.5 Hct 42.1 MCV 80.7 L MCH 25.9 L MCHC 32.1 RDW Std Deviation 45.0 H RDW Coeff of Carolyn 15.5 H Plt Count 302 MPV 9.2 Immature Gran % (Auto) 0.300 Neut % (Auto) 55.9 Lymph % (Auto) 27.9 Hickman % (Auto) 9.2 Eos % (Auto) 5.6 H Baso % (Auto) 1.1 H Absolute Neuts (auto) 4.9 Absolute Lymphs (auto) 2.44 Nucleated RBC % 0 Sodium 136 Potassium 4.2 Chloride 104 Carbon Dioxide 24.2 Anion Gap 8 BUN 8 Creatinine 0.52 L Estim Creat Clear Calc 231.85 Est GFR (MDRD) Non-Af 131 BUN/Creatinine Ratio 16.0 Glucose 85 Calcium 8.9 Radiography Chest X-Ray - ED: 2 View, Read by ED Physician, Read by Radiologist and No Acute Disease Diagnostic Testing: Clinical Impression(s) from Imaging Studies Chest X-Ray 10/05/24 14:40 IMPRESSION: Stable examination. No acute abnormality is seen. Reading Location: [id number] and lateral chest x-ray was obtained. There are 2 views. On my independent interpretation, lung gordon are clear. There is normal cardiac silhouette. Bony thorax is normal. There is no acute process noted. Radiologist also interpreted the x-ray and agrees. EKG Initial EKG: Attestation: I personally reviewed and interpreted this EKG as follows: Interpretation: Sinus Bradycardia (58) and LBBB Comments: The EKG was obtained. On my independent interpretation, shows sinus bradycardia with a rate of 58. WA interval was normal at 172 ms. QRS interval was prolonged at 138 ms. QTc interval is normal at 441 ms. [place] is normal. There is a left bundle branch block pattern noted. There are no acute ST or T wave changes noted. This was unchanged compared to previous EKG dated 03/31/2024. Prior EKG tracings: available for review Prior: Unchanged (03/31/2024) Treatment and Re-Evaluation :: Patient was given a DuoNeb aerosol. Patient was feeling better on reevaluation. Patient was advised of her findings. Patient was instructed to follow-up with her primary care physician in 5 to 7 days. Patient was instructed to continue her albuterol inhaler as needed. Patient understood and was agreeable with the plan. All questions were answered. Discharge Plan Triage Chief Complaint: Chest Other ED Provider: Misael Valle Dx/Rx/DC Orders Clinical Impression: Chest pain, Asthma Instructions: ED Asthma, Acute (Adult), ED Chest Pain, Noncardiac Prescriptions: No Action sulfamethoxazole-trimethoprim [Bactrim DS] 800-160 mg tablet 1 tab PO BID Qty: 10 0RF levofloxacin 750 mg tablet 750 mg PO DAILY 7 Days Qty: 7 0RF prednisone 50 mg tablet 50 mg PO DAILY 5 Days Qty: 5 0RF albuterol sulfate 90 mcg/actuation HFA aerosol inhaler 2 puff inhalation Q6H PRN (Reason: shortness of breath or wheezing) Qty: 8.5 0RF ondansetron 4 mg tablet,disintegrating 4 mg PO Q8H PRN PRN (Reason: Nausea) Qty: 10 0RF ibuprofen 800 mg tablet 800 mg PO Q8H PRN (Reason: pain) Qty: 20 0RF oxycodone-acetaminophen [Percocet] 5-325 mg tablet 1 tab PO Q6H PRN (Reason: pain) 3 Days Qty: 12 0RF methocarbamol 500 mg tablet 1,000 mg PO 4X/DAY PRN (Reason: Muscle pain/spasm) Qty: 56 0RF Stand Alone Forms: ED Work / School Excuse Primary Care Provider: Ken Barnes Referrals: Ken Barnes MD [Primary Care Provider] - 5-7 Days Print Language: Bengali Disposition Disposition: Home, Self Care Discharge Date/Time: 10/05/24 15:33
--- NOTE | 2024-10-05 14:00 | EKG12_ITS ---
Test Reason : GENERAL Blood Pressure : */* mmHG Vent. Rate : 58 BPM Atrial Rate : 58 BPM P-R Int : 172 ms QRS Dur : 138 ms QT Int : 450 ms P-R-T Axes : 43 30 109 degrees QTcB Int : 441 ms Sinus bradycardia CHRONIC Left bundle branch block Abnormal ECG Confirmed by Manuel Tripathi ([id number]), editorial specialist JARVIS ALMANZA ([id number]) on 10/07/2024 9:53:51 AM Referred By: Confirmed By: Manuel Tripathi
[2024-10-05 14:15] VITALS: PULSE 79; RESP 16
[2024-10-05] MEDS: Ipratropium/Albuterol Sulfate 3 ML AMPUL.NEB INHALATION (14:15)
[2024-10-05 14:35] LABS: Absolute Lymphocyte Count 2.44 X10^3/uL (0.83-4.51); Absolute Neutrophil Count 4.9 X10^3/uL (2.0-7.7); Basophil% 1.1 % (0-1); Eosinophil# 0.49 X10^3/uL; Eosinophils% 5.6 % (0-5); Hematocrit 42.1 % (37-47); Hemoglobin 13.5 g/dL (12.0-15.0); Lymphocyte # 2.44 X10^3/ul (0.83-4.51); Lymphocyte % 27.9 % (19-41); Mean Corp Hgb Conc 32.1 g/dL (32-36); Mean Corpuscular Hgb 25.9 pg (27.0-32.0); Mean Corpuscular Volume 80.7 fL (81-99); Mean Platelet Vol. 9.2 fl (6.2-12.0); Monocyte% 9.2 % (0-10); NRBC Flagged by Analyzer 0 % (0-5); Neutrophil # 4.87 X10^3/uL (2.7-7.7); Neutrophil % 55.9 % (47-70); Platelet Count 302 K/mm3 (150-450); RBC Distribution Width CV 15.5 % (11.6-14.6); Red Blood Count 5.22 M/mm3 (4.2-5.4); White Blood Count 8.7 K/mm3 (4.4-11.0)
--- NOTE | 2024-10-05 14:40 | RAD_ITS ---
PROCEDURE: CHEST PA AND LATERAL 10/05/2024 REASON FOR EXAM: DYSPNEA TECHNIQUE: Frontal and lateral views of the chest. COMPARISON: Comparison is made with prior study dated March 31, 2024. FINDINGS: Hardware: EKG electrodes are seen. Prior midline sternotomy. Heart: The heart size is normal. Mediastinum: The mediastinal contour is unremarkable. Lungs: The lungs are clear. Bones: The bones are unremarkable. RAD/Chest PA and Lateral IMPRESSION: Stable examination. No acute abnormality is seen. Reading Location: [id number]
[2024-10-05 14:57] LABS: Anion Gap 8 (5-15); BUN 8 mg/dL (4-19); Calcium,Total 8.9 mg/dL (7.6-11.0); Carbon Dioxide 24.2 mmol/L (21.0-32.0); Chloride 104 mmol/L (98-108); Creatinine, Serum 0.52 mg/dL (0.70-1.20); EST Glomerular Filtration Rate 131 (>60); Estimated Creatinine Clearance 231.85 ml/min (50-250); Glucose 85 mg/dL (70-99); Potassium 4.2 mmol/L (3.3-5.1); Sodium Level 136 mmol/L (133-145)
[2024-10-05 14:58] VITALS: PULSE 77; RESP 27; O2SAT 98
== END 2024-10-05 15:33 | disposition home or self-care (01) ==
PROVIDERS: Emergency Provider Emergency Medicine; PCP Family Medicine; Visit Provider Emergency Medicine
DX: R07.9 Chest pain, unspecified (principal); J45.909 Unspecified asthma, uncomplicated; G47.33 Obstructive sleep apnea (adult) (pediatric); F17.210 Nicotine dependence, cigarettes, uncomplicated
CPT/HCPCS: 71046; 80048; 85025; 93005; 94640; 99283; A4216

== ENCOUNTER 2025-02-09 14:14 | Emergency (ER) | payer MEDICAID, SELFPAY ==
[2025-02-09 14:15] VITALS: BP 150/78; PULSE 64; RESP 17; TEMP 36.6; O2SAT 96; BMI 45.8
--- NOTE | 2025-02-09 14:49 | EKG12_ITS ---
Test Reason : SOB Blood Pressure : */* mmHG Vent. Rate : 63 BPM Atrial Rate : 63 BPM P-R Int : 138 ms QRS Dur : 142 ms QT Int : 464 ms P-R-T Axes : 26 13 112 degrees QTcB Int : 474 ms Normal sinus rhythm Left bundle branch block Abnormal ECG Confirmed by KALI ZELAYA MD ([id number]), state editor JARVIS ALMANZA ([id number]) on 02/11/2025 10:33:03 AM Referred By: TB Confirmed By: KALI ZELAYA MD
--- NOTE | 2025-02-09 14:50 | ED.VIS.CHEST ---
HPI History of Present Illness Chief Complaint: Chest Other Narrative Narrative: Patient is a 29-year-old female with a past medical history of PCOS, QUINTON, BMI of 45, asthma, previous cardiac surgery as a child for repair of patent ductus arteriosus and subaortic membrane who presents to the emergency department with a chief complaint of cough and generalized not feeling well. States that she went to urgent care and they placed her on a Z-Rober and she states that she was diagnosed with bronchitis. She states that she has not been using her inhalers at home as often. States that given her symptoms and her heart history she was concerned and came here to be further evaluated. [facility] Medical History PTSD (post-traumatic stress disorder) Aortic stenosis PCOS (polycystic ovarian syndrome) QUINTON (obstructive sleep apnea) Morbid obesity Depression Asthma Chest pain Home Medications ?Medication ?Instructions ?Recorded ?Last Taken ?Type ibuprofen 800 mg tablet 800 mg PO Q8H PRN pain #20 tabs 06/15/24 Unknown Rx Allergy/AdvReac Type Severity Reaction Status Date / Time doxycycline Allergy Intermediate rash Verified 02/09/25 14:17 Penicillins Allergy Hives Verified 02/09/25 14:17 Tetanus Vaccines and Toxoid Allergy Rash Verified 02/09/25 14:17 Family History Mother COPD (chronic obstructive pulmonary disease) Thyroid disorder Asthma QUINTON (obstructive sleep apnea) Father Diabetes Myocardial infarction Sister COPD (chronic obstructive pulmonary disease) Asthma Thyroid disorder QUINTON (obstructive sleep apnea) Brother Diabetes Grandmother COPD (chronic obstructive pulmonary disease) Hypertension Asthma CVA (cerebral vascular accident) Thyroid disorder QUINTON (obstructive sleep apnea) Grandfather Hypertension Heart disease Uncle Cancer Surgical History History of cholecystectomy Subaortic membrane (~05/2017) History of repair of patent ductus arteriosus Social History Smoking Status: Current every day smoker tobacco type: cigarettes alcohol intake: never substance use type: marijuana caffeine: Yes (3-45 ounce cups of mountain dew and 1 gallon of tea daily) Type: carbonated beverages and tea ROS ROS ED ROS Narrative Constitutional: Planes of chills denies any lightness, dizziness, Eyes: Denies double vision Cardiovascular: Complains of chest discomfort denies palpitations Respiratory: Complains of cough as noted above Abdomen: Denies abdominal pain nausea vomit diarrhea : Denies urinary symptoms Neurological: Denies any numbness, weakness, tingling Musculoskeletal: Denies back pain Skin: Denies any rashes or lesions EXAM Physical Exam Narrative Exam Narrative: General: Patient was lying in bed rest comfortably did not appear to be in acute distress Head: Atraumatic, normocephalic Eyes: PERRL bilaterally, EOMI bilateral, no conjunctival injection noted Neck: Soft, supple, trachea midline Cardiovascular: Regular rate and rhythm no murmurs gallops rubs noted Respiratory: Patient has diffuse end expiratory wheezing noted on exam Abdomen: No tenderness to palpation Extremities: +5/5 strength noted in the bilateral upper and lower extremities Neurological: Patient following commands and that she was at [facility] year is 2024 Skin: Warm, dry, intact no rashes or lesions noted Const Vital Signs: 02/09/25 14:15 02/09/25 14:49 02/09/25 15:12 Temperature 97.9 F Temperature Source Oral Pulse Rate 64 62 Respiratory Rate 17 18 Respiratory Effort Normal Non-Labored Respiratory Pattern Normal Blood Pressure 150/78 H Blood Pressure Mean 102 Pulse Ox 96 Oxygen Delivery Method Room Air 02/09/25 15:57 Temperature Temperature Source Pulse Rate 76 Respiratory Rate 18 Respiratory Effort Respiratory Pattern Normal Blood Pressure Blood Pressure Mean Pulse Ox Oxygen Delivery Method MDM MDM MDM Narrative Medical decision making narrative: Patient is a 29-year-old female who presented to the emergency department the chief complaint of cough, congestion and not feeling well. On the differential diagnose includes but not limited to ACS, pneumonia, upper respiratory infection secondary viral etiology, asthma exacerbation. Once workup is obtained reviewed she will be reevaluated. Patient be given 3 DuoNebs. Patient's chest x-ray reviewed by myself by radiology showed mild cardiac enlargement status post median sternotomy no other acute cardiopulmonary processes identified. Patient's EKG reviewed showed evidence of left bundle branch block with sinus rhythm with a rate of 63 bpm WI interval normal at 138. This is compared to previous EKG from January 03, 2025 which remains largely unchanged. No Sgarbossa criteria were met. On reevaluation patient she is still having some end expiratory wheezing noted therefore she was given additional albuterol. Patient ambulated well here in the emergency department no hypoxia no tachycardia. Discussed the results with the patient she would like to go home she is feeling better. She was advised that she needs to use her inhaler as prescribed as well as continue on the steroid taper. She was advised to follow-up with her doctor in outpatient setting and return with worsening symptoms or any other concerns. Significant other is also agreeable with this plan all course concerns answered she was discharged home in stable condition. Radiography Diagnostic Testing: Clinical Impression(s) from Imaging Studies Chest X-Ray 02/09/25 15:01 IMPRESSION: Mild cardiac enlargement status post median sternotomy. Reading Location: [id number] Discharge Plan Triage Chief Complaint: Chest Other ED Provider: Yury White Dx/Rx/DC Orders Clinical Impression: Upper respiratory infection, viral, Asthma exacerbation, Hx of left bundle branch block Prescriptions: No Action ibuprofen 800 mg tablet 800 mg PO Q8H PRN (Reason: pain) Qty: 20 0RF Primary Care Provider: Ken Barnes Referrals: Ken Barnes MD [Primary Care Provider, Family Practice] Activity Restrictions/Additional Instructions: Follow-up with your doctor in outpatient setting and return with worsening symptoms or other concerns. Take steroids as prescribed and continue the Z-Rober that you are prescribed by urgent care. Use your inhaler as prescribed and you should be using this every 4-6 hours 2 inhalations as needed for shortness of breath and wheezing. Your EKG did not show any acute findings and your chest x-ray did not show any evidence of pneumonia. When you walked in the emergency department your oxygen level was normal. Print Language: Australian Disposition Disposition: Home, Self Care
--- NOTE | 2025-02-09 15:01 | RAD_ITS ---
PROCEDURE: CHEST PA AND LATERAL 02/09/2025 REASON FOR EXAM: COUGH TECHNIQUE: Procedure Code: RADCXR Modality: DX Procedure: CHEST PA AND LATERAL COMPARISON: October 05, 2024 FINDINGS: Heart: Cardiac enlargement status post median sternotomy. Mediastinum: Normal Lungs: Clear. No pneumothorax or pleural effusion. Bones: The bones are unremarkable. RAD/Chest PA and Lateral IMPRESSION: Mild cardiac enlargement status post median sternotomy. Reading Location: [id number]
[2025-02-09 15:12] VITALS: PULSE 62; RESP 18
[2025-02-09 15:26] VITALS: O2SAT 98
[2025-02-09] MEDS: Albuterol 2.5 MG/3 ML VIAL.NEB. INHALATION (15:56)
[2025-02-09 15:57] VITALS: PULSE 76; RESP 18
== END 2025-02-09 16:21 | disposition home or self-care (01) ==
PROVIDERS: Emergency Provider Emergency Medicine; PCP Family Medicine; Visit Provider Emergency Medicine
DX: J45.901 Unspecified asthma with (acute) exacerbation (principal); E66.01 Morbid (severe) obesity due to excess calories; Z68.42 Body mass index [BMI] 45.0-49.9, adult; J06.9 Acute upper respiratory infection, unspecified; E28.2 Polycystic ovarian syndrome; I35.0 Nonrheumatic aortic (valve) stenosis; I44.7 Left bundle-branch block, unspecified; G47.33 Obstructive sleep apnea (adult) (pediatric); F17.210 Nicotine dependence, cigarettes, uncomplicated; Z98.890 Other specified postprocedural states
CPT/HCPCS: 71046; 93005; 94640; 99282

== ENCOUNTER → 2025-03-07 | Outpatient (CLI) | payer MEDICAID, SELFPAY ==
--- NOTE | 2025-03-07 10:47 | ECHOD_ITS ---
Reason For Study Reason For Study: MURMUR Procedure This was a 2D Doppler, Color Flow transthoracic echocardiogram. The study was technically difficult. Contrast injection was performed. Exam performed in department. Left Ventricle Normal LV size. Moderate concentric left ventricular hypertrophy. Left ventricular systolic function is normal. The left ventricular ejection fraction is 55 %. No regional wall motion abnormalities noted. Right Ventricle Normal RV size. Normal systolic function. Atria Normal left atrium. Normal right atrium. Mitral Valve Normal mitral valve. Tricuspid Valve Normal tricuspid valve. Mild (1+) tricuspid valve insufficiency. Pulmonary artery systolic pressure is 30 mmHg. Aortic Valve Trisinus/trileaflet aortic valve. Residual subaortic membrane. Mild (1+) aortic valve insufficiency. Pulmonic Valve Normal pulmonic valve. Great Vessels Normal aortic root. The pulmonary artery is normal size. Inferior vena cava collapse with respiration. Pericardium/Pleural No pericardial effusion. Medication 24 guage instered into left forarm. Diluted definity 6ml given slow IV push to enhance endocardial definition. MMode/2D Measurements & Calculations LVIDd: 5.4 cm IVSd: 1.5 cm LVOT diam: 2.0 cm LVIDs: 4.0 cm LVPWd: 1.3 cm RVDd: 3.7 cm FS: 27.1 % LVOT area: 3.2 cm2 asc Aorta Diam: 3.9 cm LAV(MOD-bp): 39.6 ml LVAd ap4: 32.6 cm2 LAV(MOD-bp) Indexed: 17.0 ml/m2 LVLd ap4: 8.9 cm LAV(MOD-sp2): 39.3 ml EDV(MOD-sp4): 99.4 ml LAV(MOD-sp4): 39.5 ml EDV(sp4-el): 101.1 ml LVAs ap4: 21.2 cm2 LVLs ap4: 7.6 cm ESV(MOD-sp4): 48.0 ml ESV(sp4-el): 50.2 ml EF(MOD-sp4): 51.7 % EF(sp4-el): 50.3 % LVAd ap2: 38.5 cm2 SV(MOD-sp4): 51.4 ml SV(MOD-sp2): 74.1 ml LVLd ap2: 9.0 cm SI(MOD-sp4): 22.0 ml/m2 SI(MOD-sp2): 31.8 ml/m2 EDV(MOD-sp2): 131.6 ml EDV(sp2-el): 140.2 ml LVAs ap2: 23.4 cm2 LVLs ap2: 7.8 cm ESV(MOD-sp2): 57.5 ml ESV(sp2-el): 59.5 ml EF(MOD-sp2): 56.3 % SV(sp4-el): 50.9 ml Ao sinus diam: 3.[address] Junction: 2.4 cm LA dimension(2D): 4.7 cm LA A4 area: 15.5 cm2 RA A4 area: 10.8 cm2 TAPSE: 1.7 cm Time Measurements MV dec time: 0.16 sec Doppler Measurements & Calculations MV E max tomas: 124.5 cm/sec Lat Peak E' Tomas: 11.6 cm/sec Med Peak E' Tomas: 11.4 cm/sec MV A max tomas: 53.5 cm/sec E/E' lat: 10.7 E/E' med: 11.0 MV E/A: 2.3 MV dec slope: 762.6 cm/sec2 Ao V2 max: 260.0 cm/sec AI max tomas: 379.0 cm/sec Ao max P.1 mmHg AI max P.9 mmHg Ao V2 mean: 203.8 cm/sec AI dec slope: 207.9 cm/sec2 Ao mean P.7 mmHg AI P1/2t: 534.0 msec Ao V2 VTI: 58.2 cm PA V2 max: 118.7 cm/sec TR max tomas: 260.4 cm/sec TR max P.4 mmHg ECHO/Echo Complete W/ Contrast Interpretation Summary Normal LV size. Left ventricular systolic function is normal. The left ventricular ejection fraction is 55 %. Trisinus/trileaflet aortic valve. Residual subaortic membrane Moderate concentric left ventricular hypertrophy. Contrast injection was performed. Ordering Physician: Denis Carter Referring Physician: Denis Carter Performed By: Wen Dolan RDCS
== END | disposition home or self-care (01) ==
LOC: CVS 10:47
PROVIDERS: PCP Family Medicine; Referring Provider Student in an Organized Health Care Education/Training Program; Visit Provider Student in an Organized Health Care Education/Training Program
DX: I35.0 Nonrheumatic aortic (valve) stenosis (principal)
CPT/HCPCS: 93306; Q9957; A4216; C8929